=== PATIENT | female | born 1950 | race Caucasian/White ===

== ENCOUNTER → 2017-10-26 08:04 | Day surgery (SDC) | payer MEDICARE, OTHER, SELFPAY ==
[2017-10-18 15:23] VITALS: BMI 48.9
--- NOTE | 2017-10-18 16:24 | RAD_ITS ---
STUDY: X-RAY CHEST REASON FOR EXAM: Female, 67 years old. DYSPNEA TECHNIQUE: Frontal and lateral views of the chest. COMPARISON: August 30, 2016 FINDINGS: Chronic appearing increased interstitial lung markings. There is no demonstrated pleural abnormality. Enlarged heart size. Normal mediastinum and armando. Normal visualized pulmonary arteries. There is atherosclerotic calcification of the aortic arch with tortuosity. There are diffuse degenerative changes of the visualized thoracic spine. There is degenerative osteoarthritis of the bilateral shoulders. There is no demonstrated abnormality of the visualized soft tissue structures of the upper abdomen. RAD/Chest PA and Lateral IMPRESSION: There are no acute findings. Electronically Signed: Jeffrey Hardy MD at 17:11 EST , Service support ,
[2017-10-18 17:40] LABS: Absolute Lymphocyte Count 2.22 X10^3/ul (0.83-4.51); Absolute Neutrophil Count 6.2 X10^3/uL (2.0-7.7); Basophil% 1.1 % (0-1); Eosinophil# 0.08 X10^3/uL; Eosinophils% 0.9 % (0-5); Hemoglobin 12.5 g/dl (12.0-15.0); Lymphocyte # 2.22 X10^3/ul (4.0); Mean Corp Hgb Conc 32.1 g/gl (32-36); Mean Corpuscular Hgb 32.1 pg (27.0-32.0); Mean Platelet Vol. 10.4 fl (6.2-12.0); Monocyte# 0.62 X10^3/uL; Monocyte% 6.7 % (0-10); Neutrophil # 6.22 X10^3/uL (2.7-7.7); Neutrophil % 67.1 % (47-70); Platelet Count 241 K/mm3 (150-450); RBC Distribution Width CV 13.8 % (11.6-14.6); RBC Distribution Width SD 49.3 fl (35.1-43.9); White Blood Count 9.3 K/mm3 (4.4-11.0)
[2017-10-18 17:43] LABS: POSITIVE COUNT NO; POSITIVE DIFFERENTIAL NO; POSITIVE MORPHOLOGY NO
[2017-10-18 17:53] LABS: Prothrombin Time (Protime)PT. 12.4 SECONDS (11.7-14.9)
[2017-10-18 18:01] LABS: Anion Gap 8 (5-15); BUN 28 mg/dL (7-18); BUN/Creat Ratio 25.9 RATIO (10-20); Calcium,Total 9.3 mg/dL (8.5-10.1); Chloride 105 mmol/L (98-107); Creatinine, Serum 1.08 mg/dL (0.55-1.02); EST Glomerular Filtration Rate 54 mL/min (>60); Est Glom Filt Rate - Afr Amer 65 mL/min (>60); Glucose 124 mg/dL (70-110); Sodium Level 142 mmol/L (136-145)
[2017-10-25 07:36] VITALS: BMI 48.9
[2017-10-26 12:01] LABS: Base Excess 1 mmol/L (-2 to +2); Bicarbonate 26.7 mmol/L (22-26); Blood Gas Specimen Type ART; PO2 81 mmHG (75-100); SO2 96 % (95-99); Total Carbon Dioxide 28 mmol/L; pCO2 45.8 mmHg (35-45); pH 7.37 (7.35-7.45)
[2017-10-26 12:01] LABS: Blood Gas Specimen Type VEN; VBG BASE EXCESS 6 mmol/L (-1.0-3.5); VBG Bicarbonate 29 mmol/L (22-26); VBG Oxygen Content 31 mmol/L (23-33); VBG PO2 44 mmHg (25-40); VBG SO2 83 % (50-70); VBG pCO2 40.5 mmHg (41-51); VBG pH 7.47 (7.32-7.42)
[2017-10-26 12:01] LABS: Blood Gas Specimen Type VEN; VBG BASE EXCESS 5 mmol/L (-1.0-3.5); VBG Bicarbonate 30 mmol/L (22-26); VBG Oxygen Content 31 mmol/L (23-33); VBG PO2 40 mmHg (25-40); VBG SO2 77 % (50-70); VBG pCO2 42.6 mmHg (41-51); VBG pH 7.45 (7.32-7.42)
[2017-10-26 12:01] LABS: Blood Gas Specimen Type VEN; VBG BASE EXCESS 3 mmol/L (-1.0-3.5); VBG Bicarbonate 28 mmol/L (22-26); VBG Oxygen Content 29 mmol/L (23-33); VBG PO2 41 mmHg (25-40); VBG SO2 78 % (50-70); VBG pCO2 41.1 mmHg (41-51); VBG pH 7.44 (7.32-7.42)
[2017-10-26 12:01] LABS: Blood Gas Specimen Type VEN; VBG BASE EXCESS 4 mmol/L (-1.0-3.5); VBG Bicarbonate 28 mmol/L (22-26); VBG Oxygen Content 30 mmol/L (23-33); VBG PO2 41 mmHg (25-40); VBG SO2 79 % (50-70); VBG pCO2 41.5 mmHg (41-51); VBG pH 7.44 (7.32-7.42)
--- NOTE | 2017-10-26 12:01 | CL.D_ITS ---
Patient Name: GRACIELA KIRK Study Date: 10/26/2017 Performing: Taz Agee MD Ht: 57.08 inches 145 cm : 1950 Wt: 227.08 lbs 103 kg Age: 67 Gender: female BSA: 1.9 PROCEDURE(S) PERFORMED WP15-JHG/LHC/COR/LV DC11-AO ROOT ANGIO WITH HEART CATH CLINICAL PROFILE AND INDICATIONS INDICATIONS: Pulmonary Hypertension, Shortness of Breath, Valvular heart disease, Aortic valve st enosis Stress/Imaging Stress/Image Study Performed: No Angina Classification Anginal Classification w/in 2 Weeks: No symptoms CAD Presentations: Other: Dyspnea on exertion Comorbidities/Risk Factors: Hypertension Dyslipidemia Diabetes Mellitus: Diabetes Therapy: Diet CONCLUSIONS Non obstructive coronary arteries Normal LV size, wall motion,and systolic function Cardiac output - Preserved The patient has pulmonary hypertension which is moderate. Severe aortic stenosis with estimated DANA=0.94 cm2; peak to peak gradient of 30 mm Hg. RECOMMENDATIONS Pt has symptomatic severe aortic stenosis by DANA=0.94cm2 and moderate pulmonary HTN. Recommend eval a t [facility] for TAVR. DESCRIPTION OF PROCEDURE The patient arrived to the procedure lab. The risks and benefits of the procedure as well as a full d escription of our services here and current unavailability of surgical backup were fully explained to the patient and/or their significant other prior to the catheterization. The Timeout was completed, verifying the correct patient and procedure. The patient's procedural site was prepped and draped in the usual fashion. Local anesthetic was given subcutaneously to right groin region with Lidocaine 2%. Using a modified Seldinger technique, arterial access was obtained via the right femoral artery, a 4 Fr sheath was inserted Venous access was obtained via the right femoral vein, a 7Fr sheath was insert ed. A 7Fr thermal dilution catheter was inserted and right heart pressures were recorded, it was then advanced to PA position for cardiac outputs. Thermal dilution cardiac outputs were then recorded. O2 saturations were then obtained. Left Ventriculography was performed in RASHID projection using a 4 Fr. Pigtail catheter. LV to AO pullback pressures were then recorded. Simultaneous pressures were then re corded. The Thermal dilution catheter was then removed. Left Coronary Artery selective angiography wa s performed in multiple views using a 4 Fr. JL5 catheter. Right Coronary Artery selective angiography was then performed in multiple views using a 4 Fr. 3DRC catheter.The arterial sheath was pulled and manual compression applied until hemostasis is achieved.. The venous sheath was then pulled and manua l compression applied until hemostasis achieved CORONARY ANGIOGRAPHY DOMINANCE: Left Dominant LEFT HEART ASSESSMENT Left Ventricular Ejection Fraction: by LV Gram 65-75 % Normal LV wall motion Normal Left Ventricular systolic function Elevated Left Ventricular End Diastolic Pressure RIGHT HEART ASSESSMENT Thermal CO: 4.77 Thermal CI: 2.51 Stephania CO: 8.26 Stephania CI: 4.35 PW: 15 PA: 39/11 24 RV: 48/0 9 RA: 07/23 3 PVR: 151 SVR: 1560 Aortic Valve Area: 0.94 Aortic Valve Index: 0.49 Aortic Valve Mean Gradient: 25.3 Pulmonary Hypertension Right Heart pressures - elevated LEFT MAIN: Angiographically normal LEFT ANTERIOR DECENDING ARTERY: Mild luminal irregularities less than 30% CIRCUMFLEX ARTERY: Mild luminal irregularities less than 30% RIGHT CORONARY ARTERY: Mild luminal irregularities less than 30% VALVE FINDINGS: Aortic Valve Calcification - mild Aortic Valve Stenosis - severe No Aortic Valve insufficiency AORTIC ROOT: Angiographically normal COMPLICATIONS No Complications PROCEDURE MEDICATIONS Oxygen: 2 L/min via nasal cannula Benadryl 50 mg IV @ 10/26/2017 10:58:17 Pepcid 20 mg IV 10/26/2017 10:58:35 Solu-cortef 100 mg IV 10/26/2017 10:58:25 SUMMARY OF HEMODYNAMIC DATA Time AIR REST ECG 08:47:10 RA 07/23 (3) SV 11:26:03 RV 48/0, 9 11:26:13 PW (15) PV 11:27:18 PA 39/11 (24) PA 11:27:28 LV 175/-11, 13 11:36:04 LV 187/-14, 17 11:36:11 LV 186/-15, 19 11:36:36 PW 20/30 (17) 11:36:36 LV 185/-15, 20 11:39:18 LV 200/-11, 24 11:41:07 RV 51/1, 13 11:41:07 LVp 192/-14, 19 11:41:29 AOp 163/57 (100) 11:41:34 AO 127/74 (96) SA 11:44:09 Valve Area (c P-P/ms Time AIR REST Aortic 0.94 25.3 mn/322 ms 29.0 pk/322 ms 11:41:29 Type SV CO (l/m) CI (l/m/ HR Time AIR REST Thermal 78.20 4.77 2.51 61 08:47:10 Stephania 135.40 8.26 4.35 61 08:47:10 Label % O2 Pres/Loc Time AIR REST PA 78 PA 11:48:54 AO 96 PV 11:50:55 Signed By Taz Agee MD On 10/26/2017 12:00:38 Taz Agee MD
== END ==
PROVIDERS: Family Provider Family Medicine; PCP Family Medicine; Visit Provider Internal Medicine Cardiovascular Disease
DX: I35.0 Nonrheumatic aortic (valve) stenosis (principal); I27.21 Secondary pulmonary arterial hypertension; E78.5 Hyperlipidemia, unspecified; G47.30 Sleep apnea, unspecified; E66.01 Morbid (severe) obesity due to excess calories; Z68.42 Body mass index [BMI] 45.0-49.9, adult; Z82.49 Family history of ischemic heart disease and other diseases of the circulatory system; M79.1 Myalgia; E03.9 Hypothyroidism, unspecified; M06.9 Rheumatoid arthritis, unspecified; E11.9 Type 2 diabetes mellitus without complications; Z79.01 Long term (current)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; Z79.82 Long term (current) use of aspirin; Z79.899 Other long term (current) drug therapy; Z87.891 Personal history of nicotine dependence
CPT/HCPCS: 36415; 71046; 80048; 82803; 85025; 85610; 93460; 93567; J7040; C1751; C1769; C1894; J3490; Q9967

== ENCOUNTER → 2017-11-18 13:00 | Outpatient (CLI) | payer MEDICARE, OTHER, SELFPAY ==
[2017-11-18 14:14] LABS: Absolute Lymphocyte Count 1.84 X10^3/ul (0.83-4.51); Absolute Neutrophil Count 2.7 X10^3/uL (2.0-7.7); Basophil# 0.04 X10^3/uL; Basophil% 0.8 % (0-1); Eosinophil# 0.07 X10^3/uL; Eosinophils% 1.4 % (0-5); Hematocrit 37.4 % (37-47); Hemoglobin 11.6 g/dl (12.0-15.0); Lymphocyte # 1.84 X10^3/ul (4.0); Lymphocyte % 35.9 % (19-41); Mean Corpuscular Hgb 30.8 pg (27.0-32.0); Mean Corpuscular Volume 99.2 fL (81-99); Mean Platelet Vol. 9.9 fl (6.2-12.0); Monocyte# 0.46 X10^3/uL; Neutrophil # 2.71 X10^3/uL (2.7-7.7); Neutrophil % 52.9 % (47-70); Platelet Count 210 K/mm3 (150-450); RBC Distribution Width CV 13.6 % (11.6-14.6); RBC Distribution Width SD 48.9 fl (35.1-43.9); Red Blood Count 3.77 M/mm3 (4.2-5.4); White Blood Count 5.1 K/mm3 (4.4-11.0)
[2017-11-18 14:16] LABS: POSITIVE COUNT NO; POSITIVE DIFFERENTIAL NO; POSITIVE MORPHOLOGY NO
[2017-11-18 14:25] LABS: Erythrocyte Sedimentation Rate 4 mm/hr (0-30)
[2017-11-18 14:49] LABS: AST(SGOT) 19 U/L (15-37); Alanine Aminotransfer ALT/SGPT 21 U/L (13-56); Albumin, Serum 3.8 g/dL (3.2-5.0); BUN 21 mg/dL (7-18); CRP < 2.90 mg/L (0.0-3.0); Creatinine, Serum 1.16 mg/dL (0.55-1.02); EST Glomerular Filtration Rate 50 mL/min (>60); Est Glom Filt Rate - Afr Amer 60 mL/min (>60)
== END ==
PROVIDERS: Family Provider Family Medicine; PCP Family Medicine
DX: M06.9 Rheumatoid arthritis, unspecified (principal)
CPT/HCPCS: 36415; 82040; 82565; 84450; 84460; 84520; 85025; 85652; 86140

== ENCOUNTER → 2017-12-12 11:50 | Outpatient (CLI) | payer MEDICARE, OTHER, SELFPAY | PROVIDERS: Family Provider Family Medicine; PCP Family Medicine; Visit Provider Internal Medicine Cardiovascular Disease | DX: Z79.01 Long term (current)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 (principal); I48.91 Unspecified atrial fibrillation; I27.21 Secondary pulmonary arterial hypertension; I35.0 Nonrheumatic aortic (valve) stenosis; I97.89 Other postprocedural complications and disorders of the circulatory system, not elsewhere classified; E66.9 Obesity, unspecified; R06.00 Dyspnea, unspecified; R06.81 Apnea, not elsewhere classified; Z95.2 Presence of prosthetic heart valve | CPT/HCPCS: 36415; 85610 ==

== ENCOUNTER → 2017-12-13 12:00 | Outpatient (CLI) | payer MEDICARE, OTHER, SELFPAY ==
[2017-12-13 13:15] LABS: BNP,B-Type NATRIURETIC PEPTIDE 450.2 pg/mL (0-100)
== END ==
PROVIDERS: Family Provider Family Medicine; PCP Family Medicine; Visit Provider Nurse Practitioner Family
DX: R06.00 Dyspnea, unspecified (principal)
CPT/HCPCS: 36415; 83880

== ENCOUNTER 2017-12-23 14:31 | Emergency (ER) | payer MEDICARE, OTHER, SELFPAY ==
[2017-12-23 14:33] VITALS: BP 134/59; PULSE 51; RESP 16; TEMP 36.4; O2SAT 96; BMI 47.5
[2017-12-23 14:55] VITALS: BP 161/70; PULSE 40; RESP 16; O2SAT 97
--- NOTE | 2017-12-23 15:05 | EKG12_ITS ---
Test Reason : SOB Blood Pressure : / mmHG Vent. Rate : 052 BPM Atrial Rate : 052 BPM P-R Int : 214 ms QRS Dur : 094 ms QT Int : 492 ms P-R-T Axes : 028 015 089 degrees QTc Int : 457 ms Sinus bradycardia with 1st degree A-V block Septal infarct , age undetermined Abnormal ECG Confirmed by PETRA JORDAN, PRESTON ([id number]), offline editor DIANE NAVARRETE ([id number]) on 12/27/2017 8:26:30 AM Referred By: Taz Agee Confirmed By:PRESTON LAMBERT MD
[2017-12-23 15:21] LABS: Absolute Lymphocyte Count 2.41 X10^3/ul (0.83-4.51); Absolute Neutrophil Count 6.5 X10^3/uL (2.0-7.7); Basophil# 0.07 X10^3/uL; Basophil% 0.7 % (0-1); Eosinophil# 0.16 X10^3/uL; Eosinophils% 1.6 % (0-5); Hematocrit 35.8 % (37-47); Lymphocyte # 2.41 X10^3/ul (4.0); Lymphocyte % 24.1 % (19-41); Mean Corp Hgb Conc 30.7 g/gl (32-36); Mean Corpuscular Hgb 30.1 pg (27.0-32.0); Mean Corpuscular Volume 98.1 fL (81-99); Mean Platelet Vol. 9.8 fl (6.2-12.0); Monocyte# 0.83 X10^3/uL; Monocyte% 8.3 % (0-10); Neutrophil % 65.1 % (47-70); Platelet Count 285 K/mm3 (150-450); RBC Distribution Width SD 48.3 fl (35.1-43.9); Red Blood Count 3.65 M/mm3 (4.2-5.4)
[2017-12-23 15:24] VITALS: BP 165/54; BP 166/69; BP 174/58; PULSE 52; PULSE 55; PULSE 59
[2017-12-23 15:26] LABS: International Normalized Ratio 1.4; Prothrombin Time (Protime)PT. 16.9 SECONDS (11.7-14.9)
[2017-12-23 15:32] LABS: Anion Gap 11 (5-15); BUN 26 mg/dL (7-18); Calcium,Total 8.9 mg/dL (8.5-10.1); Chloride 103 mmol/L (98-107); Creatinine, Serum 1.63 mg/dL (0.55-1.02); EST Glomerular Filtration Rate 34 mL/min (>60); Est Glom Filt Rate - Afr Amer 41 mL/min (>60); Estimated Creatinine Clearance 53.33 ml/min; Glucose 133 mg/dL (74-106); Potassium 3.9 mmol/L (3.5-5.1); Sodium Level 142 mmol/L (136-145)
[2017-12-23 15:50] LABS: POSITIVE COUNT NO; POSITIVE DIFFERENTIAL NO; POSITIVE MORPHOLOGY NO
--- NOTE | 2017-12-23 15:55 | ED.DCSUM_ITS ---
- ER Visit Summary Date of Service: 12/23/17 Chief Complaint: Dizziness History of Present Illness: The patient is a 67 F who presents with dizziness. When asked to defined dizziness patient states like I am going to pass out . She states when she stands up she feels dizzy. She denies any double vision, blurred vision or loss of vision. She denies any spinning of herself or the room. She denies any difficulty breathing, shortness of breath or pleuritic chest pain. She reports nausea when she feels lightheaded. When asked if she appears pale she states she has been told she does. She denies black or maroon stool. She is on Coumadin. She is status post aortic valve replacement, bovine. She denies any leg pain, swelling or discoloration. She denies fever, chills or night sweats. She denies weight gain or weight loss. She denies any auditory symptoms. She complains of of chest discomfor over the medial sternal incision site. She denies shortness of breath. She presently denies nausea. She denies any abdominal pain. She denies any food intolerance. She denies any back pain. She denies dysuria, frequency, urgency or hematuria. She denies bruising easily or problems with bleeding. Please read written note for complete detail Physical Examination: Blood pressure is 161/70, temperature 97.6, heart rate 40 , respiratory rate 16 and pulse ox on room air 97%, which is normal. She is well-nourished well-developed and obese with a BMI of 47.5. Head is atraumatic normocephalic. Pupils are equal round reactive. Extraocular muscles are intact. TMs are pearly white with landmarks noted. Nares patent with no drainage. Posterior pharynx without erythema or exudate. Uvula is midline. There is no dysphonia or dysphasia. Trachea is midline. There is no stridor with auscultation of the neck. There is no nystagmus. Heart is regular without murmur, gallop or rub. Lungs are clear to auscultation with good movement of air bilaterally. Abdomen is soft nontender. Bowel sounds are present normal. Negative Louis sign. Scar noted for hysterectomy. There is no asymmetry, swelling, discoloration, leg vein distention, palpable cords or tenderness along the distribution of the deep venous system. Neuro exam is nonfocal. She does appear pale. Test Results: EKG was obtained per nurse protocol and reveals a sinus rhythm rate of 52 with first-degree AV block and decreased anterior force. Fordyce- Hallpike maneuver was performed and she did not have any symptoms until she honorio from supine to upright position. CBC is marked for an H&H 11.0 and 35.8. H&H on November 18, 2017 was 11.6 and 37.4. Electronic panel is remarkable for a glucose of 133. BUN and creatinine are 26 and 1.63 with a GFR of 34. BUN and creatinine on November 18, 2017 was 21 and 1.16. INR is subtherapeutic at 1.4. Emergency Department Course and Treatment: Since patient has orthostatic symptoms orthostatic vital signs were obtained. Since she is on Coumadin and a PT/INR was obtained. Since she does appear pale and friends have commented she appears pale the CBC was obtained and a BMP was obtained to evaluate the BUN to creatinine ratio. Treatment Plan: Patient was instructed to hold her p.m. dose of metoprolol. She is presently taking half of a 25 mg tablet twice daily because of low heart rate. Since she had documented heart rate between 4555 and does not compensate when she stands or with activity recommend decreasing the dose. She also was informed that her INR is subtherapeutic. She is presently taking 5 mg on Tuesday and and 2.5 mg on Tuesday, , Tuesday, Tuesday and Tuesday. Disposition: Discharged to home Impression: 1. Orthostatic symptoms secondary to autonomic dysfunction 2. Sinus bradycardia documented on monitor EKG 3. Subtherapeutic INR 4. Acute renal insufficiency 5. Chronic anemia 6. Hyperglycemia type II diabetic This note was generated with [employer] software. It may contain incorrect words, spelling, and punctuation that were not noted in review of the chart prior to signing ED Disposition - Plan for ED Patient: Disposition: Home or Assisted Living Chief Complaint: Shortness of Breath Instructions: ED Bradycardia Referrals: Bird Garza MD [Primary Care Provider] - Taz Agee MD [STAFF PHYSICIAN] - 5-7 Days Additional Instructions: Take a 2.5 mg dose of Coumadin this evening. Take 2.5 mg of Coumadin on odd days and 5 mg tablet on even days. You will need your INR reassessed in 5-[address] Agee. Because your heart rate is slow recommend only taking half of a 25 mg metoprolol tablet in the morning only.
[2017-12-23 16:42] VITALS: BP 162/65; PULSE 71; RESP 22; O2SAT 97
--- NOTE | 2017-12-23 16:42 | ED.RN ---
THIS NURSE REVIEWED D/C INSTRUCTIONS WITH PT. PT VERBALIZED UNDERSTANDING OF INSTRUCTIONS. IV D/C. IV CATHETER INTACT. PT TOLERATED WELL. PT DENIES FURTHER NEEDS OR QUESTIONS AT THIS TIME.
== END 2017-12-23 16:43 | disposition home or self-care (01) ==
PROVIDERS: Emergency Provider Emergency Medicine; Family Provider Family Medicine; PCP Family Medicine
DX: G90.8 Other disorders of autonomic nervous system (principal); R00.1 Bradycardia, unspecified; N28.9 Disorder of kidney and ureter, unspecified; D64.9 Anemia, unspecified; E11.65 Type 2 diabetes mellitus with hyperglycemia; Z79.01 Long term (current)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; Z95.2 Presence of prosthetic heart valve; E78.00 Pure hypercholesterolemia, unspecified; I27.20 Pulmonary hypertension, unspecified; M06.9 Rheumatoid arthritis, unspecified; E66.9 Obesity, unspecified; Z68.42 Body mass index [BMI] 45.0-49.9, adult; Z79.82 Long term (current) use of aspirin; Z79.899 Other long term (current) drug therapy; Z87.891 Personal history of nicotine dependence
CPT/HCPCS: 80048; 85025; 85610; 93005; 99284; A4216

== ENCOUNTER → 2017-12-28 12:51 | Outpatient (CLI) | payer MEDICARE, OTHER, SELFPAY ==
--- NOTE | 2017-12-28 12:56 | PCM.CR.HP2 ---
CR - History & Physical - General Arrival date:: 12/28/17 Arrival time:: 12:57 Date of Admission: 12/28/17 Referring Physician: Dr. Taz Agee Primary Diagnosis: AVR 11/28/2017 - History of Present Cardiac Event Onset Date: Enter Onset Date of cardiac illnesses in Comment field below Valve Replacement/Repair:: Yes - Aortic Valve Replacement and small aortic root enlargement Pacemaker/ICD: Yes Type of Symptoms:: Heart murmur for ever, went to PCP and then to community development aide and over the past 3-4 years have gone downhill Interventions with present event:: heart cath, stress echo Were there any complications?: Post operative atrial fibrillation - Medications Home Medications: Ambulatory Orders Medication Instructions Recorded Aspirin E.C. [Ecotrin] 162 mg PO DAILY@0800 09/21/16 Hydroxychloroquine [Plaquenil] 400 mg PO DAILY 09/21/16 Levothyroxine Sodium 50 mcg PO DAILY 09/21/16 Clonazepam [Klonopin] 1 mg PO QHS 07/18/17 Docusate Sodium [Colace] 100 mg PO DAILY #20 cap 07/18/17 Sertraline HCl [Zoloft] 50 mg PO DAILY 07/18/17 atorvastatin 10 mg tablet 10 mg PO QHS tab 12/12/17 calcitriol 0.25 mcg capsule 0.25 mcg PO QDAY 12/12/17 magnesium oxide 400 mg tablet 400 mg PO BID tab 12/13/17 furosemide 20 mg tablet 20 mg PO BID #60 tab 12/20/17 diltiazem 120 mg tablet 120 mg PO QDAY #90 tab 12/23/17 lisinopril 10 mg tablet 5 mg PO DAILY tab 12/23/17 metoprolol tartrate 25 mg tablet 25 mg PO .COMPLEX #30 tab 12/26/17 warfarin 2.5 mg tablet 2.5 mg PO .COMPLEX 12/26/17 warfarin 5 mg tablet 5 mg PO .COMPLEX 12/26/17 - Allergies Allergies/Adverse Reactions: Allergies amiodarone Allergy (Unknown, Verified 12/23/17 14:33) Unknown ciprofloxacin [From Cipro] Allergy (Verified 12/23/17 14:33) Unknown ciprofloxacin HCl [From Cipro] Allergy (Verified 12/23/17 14:33) Unknown insulin glargine, human recombin. a [From Lantus] Allergy (Verified 12/23/17 14:33) Unknown iodine Allergy (Verified 12/23/17 14:33) Hives prednisone Adverse Reaction (Severe, Verified 12/23/17 14:33) Visual changes, glaucoma benjamin Adverse Reaction (Severe, Uncoded 12/23/17 14:33) Neck pain & tingling - Sleep Disorder Evaluation Hx of Sleep Apnea: Yes Do you snore loudly (louder than talking or can be heard through closed doors)?: Yes - Central Sleep apnea and obstructive sleep apnea; BiPap device Do you often feel tired/ fatigued/ sleepy during daytime?: Yes Has anyone observed you stop breathing during sleep?: Yes History of Hypertension (for STOP score): Yes STOP Results: Positive Advanced Directives - Advanced Directives Power of Gifts Officer: No Living Will: No Advance Directives on File: No DNR Order?:: No Past Medical History - Problems and Co-Morbidities Problems & Co-Morbidities: Dyslipidemia, Diabetes - Diet controlled diabetes, Obesity, Hypertension, Depression - diagnosed, Anxiety - diagnosed, - - Past Medical Illness Past Medical Illness: Diabetes - Type II DM diet controlled Other Medical Illnesses:: Central Apnea, obstructive sleep apnea, Palpitations, history of Sjogren's disease, rheumatoid arthritis, hypothyroidism, secondary pulmonary arterial hypertension. - Past Cardiac Illness Past Cardiac Illness: Valve Disorders - severe aortic valve stenosis, Arrhythmias - palpitations, status post operative atrial fibrillation, Heart Murmur, Other - non-rheumatic aortic stenosis. - Past Surgical History Surgical History: - - S/P AVR, bilateral carpal tunnel syndrome, partial hysterectomy, right knee joint replacement, tonsillectomy, cholecystectomy. - Family History Summary Family History: Heart Disease: Sibling, Paternal, Cancer: Maternal, Sibling, Hypertension: Maternal Additional Family History: F/H CAD, CABG, hypertension, cancer. Review of Systems - Review of Systems Hints: Right click = Denies ([place]). Left click = Reports ([place]) Review of Present Symptoms: Reports: Shortness of Breath at Rest, Shortness of Breath with Exertion, Operative Discomfort, Wound Healing, Fatigue, Heart Arrhythmia/Irregularities - post operative atrial fibrillatiopn, Appetite - Normal - wasnt for a long time, but regaining appetite, Sleep - Normal. Denies: Dizziness/Lightheadedness, Appetite - Special Diet Risk Factor Assessment - Chief Complaint Chief Complaint: Patient presents to cardiac rehab today follwoing recent AVR by Dr. Adams at [facility] after refferal by Dr. Agee. - Pulse Pulse Rate: 58 - SpO2 96% Pulse Rhythm: Regular - Hypertension Blood Pressure Sitting - Left Arm: 120/48 - Stress Stress: Recent - surgery - Diabetes Diabetic History: Type II - Diet controlled Nutrition Referral for Diabetes: Yes - Obesity Height: 4 ft 9 in Weight:: 212 lb Weight in Pounds: 212.0 lbs Body Mass Index (BMI): 45.8 Nutritional Referral for Obesity: Yes - Physical Inactivity Physical Inactivity: None - Risk Stratification Risk Guidelines: Lowest Risk: Risk Factor for Smoking, Risk Factor for Dyslipidemia, Risk Factor for Diabetes - hBA1c% <5.9 last year, Risk Factor for Hypertension, Risk Factor for Depression, Moderate Risk: Risk Factor for Sedentary Lifestyle, Highest Risk: Risk Factor for Obesity - For Smoking Smoking Risk Guidelines: Smoking Low Risk: None or quit greater than 6 months ago. Smoking Moderate Risk: Smoker or quit 6 months or less ago. Smoking High Risk: Smoker - For Dyslipidemia Dyslipidemia Risk Guidelines: Low Risk: Moderate Risk: High Risk: 15-25% fat 25.1-29% fat >/= 30% fat. <7% sat fat 7-9% sat fat >9% sat fat. <150 mg chol 150-299 mg chol >/= 300 mg chol. LDL <100 LDL 100-129 LDL >/= 130. Chol/HDL ratio <5.0 Chol/HDL ratio 5.0-6.0 Chol/HDL ratio >6.0. Triglycerides <100 Triglycerides 100-149 Triglycerides >/= 150 - For Diabetes Mellitus Diabetes Risk Guidelines: Diabetes Low Risk: HgA1c <6.5% and/or FBG <120. Diabetes Moderate Risk: HgA1c 6.6-7.9% and/or FBG 120-180. Diabetes High Risk: HgA1c >/= 8% and/or FBG >180 - For Obesity/Overweight Obesity/Overweight Risk Guidelines: Obesity Low Risk: BMI <25.0. Obesity Moderate Risk: BMI 25-29.9. Obesity High Risk: BMI >/= 30.0 - For Hypertension Hypertension Risk Guidelines: Hypertension Low Risk: Systolic <120 and Diastolic <80. Hypertension Moderate Risk: Systolic 120-139 and Diastolic 80-89. Hypertension High Risk: Systolic >/= 140 and Diastolic >/= 90 - For Sedentary Lifestyle Sedentary Lifestyle Risk Guidelines: Sedentary Lifestyle Low Risk: >/= 1,500 kcal/week. Sedentary Lifestyle Moderate Risk: 700-1,499 kcal/week. Sedentary Lifestyle High Risk: < 700 kcal/week - For Depression Depression Risk Guidelines: Depression Low Risk: Not clinically depressed. Depression Moderate Risk: Mildly depressed. Depression High Risk: Clinically depressed - Family History Family History: Family History (Last Updated 12/13/17 @ 10:50 by Juan Carlos Wolff) Brother CAD (coronary artery disease) Father CAD (coronary artery disease) Mother Hypertension Cancer Sister Cancer Social History - Smoking History Smoking Status: Former smoker Hx Tobacco Use: No Hx Smoking Exposure: No - Alcohol Use Alcohol Usage: Yes - special occasions/holidays (wine) - Substance Abuse Hx Substance Use: No - Occupation Occupation (List type of work in comments):: Retired - Hobbies, Recreation, Social Activities Hobbies: Other - crafts, make greeting cards Recreational Activities: I am able to engage in a few activities Marital Status - Status Marital Status: - 47 years - Current Living Arrangements Living Environment:: Spouse - Children How many children do you have?: 1 Do any of your children live nearby?: Yes - Safety Do you feel safe in your surroundings?: Yes - Assistance Do you need any assistance at home?: home care nurse that is coming in right now
--- NOTE | 2017-12-28 13:07 | CR.HP_ITS ---
CR - History & Physical - General Arrival date:: 12/28/17 Arrival time:: 12:57 Date of Admission: 12/28/17 Referring Physician: Dr. 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 [Ecotrin] 162 mg PO DAILY@0800 09/21/16 Hydroxychloroquine [Plaquenil] 400 mg PO DAILY 09/21/16 Levothyroxine Sodium 50 mcg PO DAILY 09/21/16 Clonazepam [Klonopin] 1 mg PO QHS 07/18/17 Docusate Sodium [Colace] 100 mg PO DAILY #20 cap 07/18/17 Sertraline HCl [Zoloft] 50 mg PO DAILY 07/18/17 atorvastatin 10 mg tablet 10 mg PO QHS tab 12/12/17 calcitriol 0.25 mcg capsule 0.25 mcg PO QDAY 12/12/17 magnesium oxide 400 mg tablet 400 mg PO BID tab 12/13/17 furosemide 20 mg tablet 20 mg PO BID #60 tab 12/20/17 diltiazem 120 mg tablet 120 mg PO QDAY #90 tab 12/23/17 lisinopril 10 mg tablet 5 mg PO DAILY tab 12/23/17 metoprolol tartrate 25 mg tablet 25 mg PO .COMPLEX #30 tab 12/26/17 warfarin 2.5 mg tablet 2.5 mg PO .COMPLEX 12/26/17 warfarin 5 mg tablet 5 mg PO .COMPLEX 12/26/17 - Allergies Allergies/Adverse Reactions: Allergies amiodarone Allergy (Unknown, Verified 12/23/17 14:33) Unknown ciprofloxacin [From Cipro] Allergy (Verified 12/23/17 14:33) Unknown ciprofloxacin HCl [From Cipro] Allergy (Verified 12/23/17 14:33) Unknown insulin glargine, human recombin. a [From Lantus] Allergy (Verified 12/23/17 14: 33) Unknown iodine Allergy (Verified 12/23/17 14:33) Hives prednisone Adverse Reaction (Severe, Verified 12/23/17 14:33) Visual changes, glaucoma benjamin Adverse Reaction (Severe, Uncoded 12/23/17 14:33) Neck pain & tingling - Sleep Disorder Evaluation Hx of Sleep Apnea: Yes Do you snore loudly (louder than talking or can be heard through closed doors)? 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 - Past Cardiac Illness Past Cardiac Illness: Valve Disorders - severe aortic valve stenosis, Arrhythmias - palpitations, status post operative atrial fibrillation, Heart Murmur, Other - non-rheumatic aortic stenosis. - Past Surgical History Surgical History: - - S/P AVR, bilateral carpal tunnel syndrome, partial hysterectomy, right knee joint replacement, tonsillectomy, cholecystectomy. - Family History Summary Family History: Heart Disease: Sibling, Paternal, Cancer: Maternal, Sibling, Hypertension: Maternal Additional Family History: F/H CAD, CABG, hypertension, cancer. Review of Systems - Review of Systems Hints: Right click = Denies (Slash). Left click = Reports ([place]) Review of Present Symptoms: Reports: Shortness of Breath at Rest, Shortness of Breath with Exertion, Operative Discomfort, Wound Healing, Fatigue, Heart Arrhythmia/Irregularities - post operative atrial fibrillatiopn, Appetite - Normal - wasnt for a long time, but regaining appetite, Sleep - Normal. Denies : Dizziness/Lightheadedness, Appetite - Special Diet Risk Factor Assessment - Chief Complaint Chief Complaint: Patient presents to cardiac rehab today follwoing recent AVR by Dr. Adams at [facility] after refferal by Dr. Agee. - Pulse Pulse Rate: 58 - SpO2 96% Pulse Rhythm: Regular - Hypertension Blood Pressure Sitting - Left Arm: 120/48 - Stress Stress: Recent - surgery - Diabetes Diabetic History: Type II - Diet controlled Nutrition Referral for Diabetes: Yes - Obesity Height: 4 ft 9 in Weight:: 212 lb Weight in Pounds: 212.0 lbs Body Mass Index (BMI): 45.8 Nutritional Referral for Obesity: Yes - Physical Inactivity Physical Inactivity: None - Risk Stratification Risk Guidelines: Lowest Risk: Risk Factor for Smoking, Risk Factor for Dyslipidemia, Risk Factor for Diabetes - hBA1c% <5.9 last year, Risk Factor for Hypertension, Risk Factor for Depression, Moderate Risk: Risk Factor for Sedentary Lifestyle, Highest Risk: Risk Factor for Obesity - For Smoking Smoking Risk Guidelines: Smoking Low Risk: None or quit greater than 6 months ago. Smoking Moderate Risk: Smoker or quit 6 months or less ago. Smoking High Risk: Smoker - For Dyslipidemia Dyslipidemia Risk Guidelines: Low Risk: Moderate Risk: High Risk: 15-25% fat 25.1-29% fat >/= 30% fat. <7% sat fat 7-9% sat fat >9% sat fat. <150 mg chol 150-299 mg chol >/= 300 mg chol. LDL <100 LDL 100-129 LDL >/= 130. Chol/HDL ratio <5.0 Chol/HDL ratio 5.0-6.0 Chol/HDL ratio >6.0. Triglycerides <100 Triglycerides 100-149 Triglycerides >/= 150 - For Diabetes Mellitus Diabetes Risk Guidelines: Diabetes Low Risk: HgA1c <6.5% and/or FBG <120. Diabetes Moderate Risk: HgA1c 6.6-7.9% and/or FBG 120-180. Diabetes High Risk: HgA1c >/= 8% and/or FBG >180 - For Obesity/Overweight Obesity/Overweight Risk Guidelines: Obesity Low Risk: BMI <25.0. Obesity Moderate Risk: BMI 25-29.9. Obesity High Risk: BMI >/= 30.0 - For Hypertension Hypertension Risk Guidelines: Hypertension Low Risk: Systolic <120 and Diastolic <80. Hypertension Moderate Risk: Systolic 120-139 and Diastolic 80-89. Hypertension High Risk: Systolic >/= 140 and Diastolic >/= 90 - For Sedentary Lifestyle Sedentary Lifestyle Risk Guidelines: Sedentary Lifestyle Low Risk: >/= 1 ,500 kcal/week. Sedentary Lifestyle Moderate Risk: 700-1,499 kcal/week. Sedentary Lifestyle High Risk: < 700 kcal/week - For Depression Depression Risk Guidelines: Depression Low Risk: Not clinically depressed. Depression Moderate Risk: Mildly depressed. Depression High Risk: Clinically depressed - Family History Family History: Family History (Last Updated 12/13/17 @ 10:50 by Juan Carlos Wolff) Brother CAD (coronary artery disease) Father CAD (coronary artery disease) Mother Hypertension Cancer Sister Cancer Social History - Smoking History Smoking Status: Former smoker Hx Tobacco Use: No Hx Smoking Exposure: No - Alcohol Use Alcohol Usage: Yes - special occasions/holidays (wine) - Substance Abuse Hx Substance Use: No - Occupation Occupation (List type of work in comments):: Retired - Hobbies, Recreation, Social Activities Hobbies: Other - crafts, make greeting cards Recreational Activities: I am able to engage in a few activities Marital Status - Status Marital Status: - 47 years - Current Living Arrangements Living Environment:: Spouse - Children How many children do you have?: 1 Do any of your children live nearby?: Yes - Safety Do you feel safe in your surroundings?: Yes - Assistance Do you need any assistance at home?: home care nurse that is coming in right now
--- NOTE | 2017-12-28 13:13 | PCM.CR.ITP ---
Exercise - Initial Assessment - Visit Date of Eval: 12/28/17 - established initial ITP Session #:: 1 - Scheduled start date 01/02/2018 - Stages of Change Stages of Change:: Action - Exercise Prescription Mode:: Treadmill, Biodyne, Airdyne, NuStep Angina with exercise?: No Target Heart Rate:: 100-107 - Hypertension Do any of the following apply?: Yes Peak Exercise Blood Pressure:: 120/48 - Intervention Home Exercise/Activity Goal:: Sitting Time <3 hrs/day - Education Goals:: Warm-up, RPE GERTRUDIS Scale, S/S, Safe Exercise, Self-Monitoring - Exercise Program Goals Exercise Program Goals: Aerobic Activity >30 min Nutrition - Initial Assessment - Program Goals Nutrition Program Goals: LDL <70. Total Cholesterol <200. HDL >45. Triglycerides <150. HgbA1C <7%. BMI <25 - Visit Date of Assessment:: 12/28/17 - established initial ITP today - Stages of Change Stages of Change:: Action - Diabetes Diabetes:: Yes Insulin: No Non-Insulin Dependent?: No Do you monitor your blood sugar at home?: No - Weight Management Height: 4 ft 9 in Weight:: 212 lb - Intervention Referral to dietitian:: Yes Referral to Diabetic Clinic:: Yes Will attend diet classes:: Yes - Education Gave educational materials for:: Signs & symptoms of hypoglycemia, Signs & symptoms of hyperglycemia, Relate diabetes to coronary artery disease, Healthy eating Nutrition - 30-Day Assessment - Program Goals Nutrition Program Goals: LDL <70. Total Cholesterol <200. HDL >45. Triglycerides <150. HgbA1C <7%. BMI <25 - Diabetes Diabetes:: Yes Nutrition - 60-Day Assessment - Program Goals Nutrition Program Goals: LDL <70. Total Cholesterol <200. HDL >45. Triglycerides <150. HgbA1C <7%. BMI <25 - Diabetes Diabetes:: Yes Nutrition - 90-Day Assessment - Program Goals Nutrition Program Goals: LDL <70. Total Cholesterol <200. HDL >45. Triglycerides <150. HgbA1C <7%. BMI <25 - Diabetes Diabetes:: Yes Nutrition - Final Assessment - Program Goals Nutrition Program Goals: LDL <70. Total Cholesterol <200. HDL >45. Triglycerides <150. HgbA1C <7%. BMI <25 - Diabetes Diabetes:: Yes Tobacco - Initial Assessment - Program Goals Tobacco Program Goals: Complete smoking cessation. Attend education classes. Improve Knowledge Test score - Stage of Change Stages of Change:: Action - Learning Barriers Learning Barriers: Hearing - hearing loss., Vision - wears glasses at all times for vision correction, Ready to Learn - Family Support Do you have family support?: Yes - Tobacco Use Tobacco Use: Non-smoker Do you use smokeless tobacco?: No - Intervention Smoking Cessation Referral:: No Individual Education/Counseling:: No Education Schedule Given:: Yes - Education Gave educational material for:: Coronary artery disease, Risk factors, Sexuality, Medical compliance, Cardiac A&P, Angina signs & symptoms Psychosocial - Initial Assess - Target Goals Target Goals: Assess presence or absence of depression. Using a valid screening tool, maximizes coping skills. Positive support system - Stages of Change Stages of Change:: Action - Psychosocial Test Tool Used:: HANDS Depression Questionnaire - Intervention PS - Interventions: Yes Attend Stress Management Classes, No Referral to Mental Health, No Referral to [facility] Case Management, No Referral to Physician, No Uses Stress Management Skills - Education Gave educational materials for:: Coping techniques, Signs & symptoms of depression, Stress management, Relaxation techniques - Patient/Program Goal Preventative Medication(s):: Aspirin, Clopidogrel, Beta noemi, Statin/lipid - Assistive Devices Assistive Devices:: None Fall Risk Assessed:: Yes Patient Health Questionnaire Initial Assessment 1. Little interest or pleasure in doing things: More than half the days 2. Feeling down, depressed, or hopeless: More than half the days 3. Trouble falling or staying asleep, or sleeping too much: More than half the days 4. Feeling tired or having little energy: More than half the days 5. Poor appetite or overeating: More than half the days 6. Feeling bad about yourself -- or that you are a failure or have let yourself or your family down: Several days 7. Trouble concentrating on things, such as reading the newspaper or watching television: Several days 8. Moving or speaking so slowly that other people could have noticed. Or the opposite - being so fidgety or restless that you have been moving around a lot more than usual: Not at all 9. Thoughts that you would be better off , or of hurting yourself in some way: Not at all How difficult have these problems made it for you to do your work, take care of things at home, or get along with other people?: Somewhat difficult Total Score: 12 Knowledge Test - Check your knowledge Initial The #1 cause of in the [place] each year is:: Heart disease Which of the following is a common treatment for heart disease?: All of the above The arteries that feed the heart are called:: Coronary arteries HDL cholesterol is known as the good cholesterol.: True What disease increases your risk for heart disease?: Diabetes What food product raises blood cholesterol level the most?: Saturated fat The bad cholesterol in the blood is called:: LDL Hypertension is another word for:: High blood pressure A blood pressure reading of 148/88 is considered normal.: False Exercise will only benefit your health when your heart rate reaches a target level.: False Total Score:: 10 Self-Efficacy Initial Assessment We would like to know how confident you are in doing certain activities. Please select your confidence level for:: Select your confidence level for the following using the scale 1-10 where 1 is not at all confident and 10 is totally confident. Your score is the average of all 6 responses. Fatigue: How confident are you that you can keep the fatigue caused by your disease from interfering with the things you want to do? Select Number: 3 Physical Discomfort or Pain: How confident are you that you can keep the physical discomfort or pain of your disease from interfering with the things you want to do? Select Number: 3 Emotional Distress: How confident are you that you can keep the emotional distress caused by your disease from interfering with the things you want to do? Select Number: 4 Other Symptoms or Health Problems: How confident are you that you can keep other symptoms or health problems from interfering with the things you want to do? Select Number: 3 Different Tasks and Activities: How confident are you that you can do the different tasks and activities needed to manage your health condition so as to reduce your need to see a doctor? Select Number: 4 Medication: How confident are you that you can do things other than just taking medication to reduce how much your illness affects your everyday life? Select Number: 5 Total Score:: 3 Nutrition Survey - Nutrition Survey Instructions Scoring Instructions: Scoring is as follows: Yes = 1 points. No = 0 point. Patient score that is >/=12 is considered to be at potential nutritional risk and could benefit from a referral to a registered dietitian. - Nutrition Survey Initial Have you lost >10 lbs over the past 2 months without trying?: Yes Are you following a special diet at home for diabetes, low fat, or low salt?: Yes Are you interested in meeting with a dietitian for help understanding your diet?: Yes Do you eat less than 3 meals a day?: No Do you eat fatty meats (sanchez, sausage, ribs, etc), fried foods, desserts, large amounts of salad dressings, margarine, butter, or cheese most days?: No Do you have food allergies? [Enter types in comment field]: No Do you eat in restaurants more than 3 times a week?: No Do you season food with salt, seasoning salt, or garlic salt?: Yes - DM Type II and Morbid Obesity Cardiac Rehabilitation Goals - Cardiac Rehab Goals Cardiac Rehabilitation Goals: 1. Maintain the individual as the primary focus of care. 2. To improve the patient's quality of life. 3. Identification of cardiac risk factors and provide cardiac risk factor management. 4. Enhance the psychosocial status of the patient. 5. Reconditioning enough to allow the patient to resume customary activities. 6. Control symptoms of cardiac disease - Scale Scale for measuring improvement of personal goals: Enter appropriate number in Comments. 2 = Unchanged. 3 = Slightly Better. 4 = Moderate Improvement. 5 = Met my Goal Initial Assessment Personal Goals: 30-day Re-assessment: Improve energy level, Participate in home exercise program, Improve muscle strength and endurance, Improve diet and eating habits (eat healthier), Control risk factors (learn risk factor modification)
[2017-12-28 13:23] VITALS: BP 120/48; PULSE 58; BMI 45.8
[2017-12-28 14:09] VITALS: BP 120/48
== END ==
PROVIDERS: Family Provider Family Medicine; PCP Family Medicine; Visit Provider Internal Medicine Cardiovascular Disease
DX: Z95.2 Presence of prosthetic heart valve (principal)

== ENCOUNTER 2018-01-16 12:36 | Outpatient (RCR) | payer MEDICARE, OTHER, SELFPAY ==
[2017-12-19 12:05] LABS: International Normalized Ratio 1.3; Prothrombin Time (Protime)PT. 16.3 SECONDS (11.7-14.9)
[2018-01-02 13:03] LABS: International Normalized Ratio 1.4; Prothrombin Time (Protime)PT. 17.5 SECONDS (11.7-14.9)
[2018-01-09 13:22] LABS: International Normalized Ratio 1.7
[2018-01-16 13:41] LABS: International Normalized Ratio 1.7; Prothrombin Time (Protime)PT. 19.6 SECONDS (11.7-14.9)
== END 2018-01-16 13:00 | disposition home or self-care (01) ==
LOC: LAB 12:36
PROVIDERS: Family Provider Family Medicine; PCP Family Medicine; Visit Provider Internal Medicine Cardiovascular Disease
DX: I48.91 Unspecified atrial fibrillation (principal); I97.89 Other postprocedural complications and disorders of the circulatory system, not elsewhere classified
CPT/HCPCS: 36415; 85610

== ENCOUNTER 2018-01-16 13:00 | Outpatient (RCR) | payer MEDICARE, OTHER, SELFPAY ==
[2018-01-09 14:42] VITALS: BP 122/72; BP 92/58
--- NOTE | 2018-01-09 14:42 | CR.ITP_ITS ---
General Information - General Information Admitting Diagnosis: aortic valve replacement - Education/Goals Barriers to Learning: None Individual Counselin-Day Assessment: Abnormal Cholesterol Levels, High Blood Pressure, Overweight/Obesity, Diabetes Cardiac Rehabilitation Goals: 1. Maintain the individual as the primary focus of care. 2. To improve the patient's quality of life. 3. Identification of cardiac risk factors and provide cardiac risk factor management. 4. Enhance the psychosocial status of the patient. 5. Reconditioning enough to allow the patient to resume customary activities. 6. Control symptoms of cardiac disease Scale for measuring improvement of personal goals: Enter appropriate number in Comments. 2 = Unchanged. 3 = Slightly Better. 4 = Moderate Improvement. 5 = Met my Goal Personal Goals: 30-day Re-assessment: Improve management of stress and emotions , Improve energy level, Participate in home exercise program, Get back to work, or to resume activities faster, Improve diet and eating habits (eat healthier), Control risk factors (learn risk factor modification) Exercise - 30-day Assessment - Visit Date of Eval: 01/09/18 Session #:: 3 - Stages of Change Stages of Change:: Action - Exercise Prescription Mode:: Treadmill, NuStep Frequency (x/week): 3 Duration:: 30 METs - Progression: 0.5-1 MET as tolerated: 2.1 Target Heart Rate:: 100-107 Max HR 72 - Hypertension Resting Blood Pressure:: 92/58 Peak Exercise Blood Pressure:: 122/72 Medication Changes:: No - Intervention Home Exercise/Activity Goal:: Sitting Time <3 hrs/day - Education Goals:: Warm-up, RPE GERTRUDIS Scale, S/S, Safe Exercise, Self-Monitoring - Exercise Program Goals Exercise Program Goals: Aerobic Activity >30 min, B/P <140/90 Nutrition - Initial Assessment - Program Goals Nutrition Program Goals: LDL <70. Total Cholesterol <200. HDL >45. Triglycerides <150. HgbA1C <7%. BMI <25 - Diabetes Do you monitor your blood sugar at home?: No Nutrition - 30-Day Assessment - Program Goals Nutrition Program Goals: LDL <70. Total Cholesterol <200. HDL >45. Triglycerides <150. HgbA1C <7%. BMI <25 - Visit Date of Eval: 01/09/18 - Stages of Change Stages of Change:: Action - Lipids Has the patient seen the dietitian?: No - Diabetes Diabetes:: Yes - Intervention Referral to dietitian:: No Referral to Diabetic Clinic:: No Will attend diet classes:: Yes - Education Attended class for:: Signs & symptoms of hypoglycemia, Signs & symptoms of hyperglycemia, Relate diabetes to coronary artery disease, Healthy eating Tobacco - Initial Assessment - Program Goals Tobacco Program Goals: Complete smoking cessation. Attend education classes. Improve Knowledge Test score - Learning Barriers Learning Barriers: Hearing - hearing loss., Vision - wears glasses at all times for vision correction, Ready to Learn Tobacco - 30-Day Assessment - Program Goals Tobacco Program Goals: Complete smoking cessation. Attend education classes. Improve Knowledge Test score - Stage of Change Stages of Change:: Action - Learning Barriers Learning Barriers: Participates in education - Family Support Do you have family support?: Yes - Tobacco Use Tobacco Use: Non-smoker Do you use smokeless tobacco?: No - Intervention Smoking Cessation Referral:: No Individual Education/Counseling:: No Education Schedule Given:: Yes - Education Attended class for:: Tobacco triggers, Coronary artery disease, Risk factors, Sexuality, Medical compliance, Cardiac A&P, Angina signs & symptoms Psychosocial - Initial Assess - Target Goals Target Goals: Assess presence or absence of depression. Using a valid screening tool, maximizes coping skills. Positive support system - Psychosocial Test Tool Used:: HANDS Depression Questionnaire - Assistive Devices Fall Risk Assessed:: Yes Psychosocial - 30-Day Assess - Target Goals Target Goals: Assess presence or absence of depression. Using a valid screening tool, maximizes coping skills. Positive support system - Stages of Change Stages of Change:: Action - Psychosocial Test Tool Used:: HANDS Depression Questionnaire - Intervention PS - Interventions: Yes Attend Stress Management Classes, Yes Uses Stress Management Skills, No Referral to Mental Health, No Referral to [facility] Case Management, No Referral to Physician - Education Attended classes for:: Coping techniques, Signs & symptoms of depression, Stress management, Relaxation techniques - Assistive Devices Assistive Devices:: None Fall Risk Assessed:: Yes Psychosocial - Final Assessmen - Target Goals Target Goals: Assess presence or absence of depression. Using a valid screening tool, maximizes coping skills. Positive support system - Stages of Change Stages of Change:: Action - Psychosocial Test Tool Used:: HANDS Depression Questionnaire Patient Health Questionnaire 30-Day Re-eval Assessment 1. Little interest or pleasure in doing things: More than half the days 2. Feeling down, depressed, or hopeless: More than half the days 3. Trouble falling or staying asleep, or sleeping too much: More than half the days 4. Feeling tired or having little energy: More than half the days 5. Poor appetite or overeating: More than half the days 6. Feeling bad about yourself -- or that you are a failure or have let yourself or your family down: Several days 7. Trouble concentrating on things, such as reading the newspaper or watching television: Several days 8. Moving or speaking so slowly that other people could have noticed. Or the opposite - being so fidgety or restless that you have been moving around a lot more than usual: Not at all 9. Thoughts that you would be better off , or of hurting yourself in some way: Not at all How difficult have these problems made it for you to do your work, take care of things at home, or get along with other people?: Somewhat difficult Total Score: 12 Self-Efficacy 30-Day Re-eval Assessment We would like to know how confident you are in doing certain activities. Please select your confidence level for:: Select your confidence level for the following using the scale 1-10 where 1 is not at all confident and 10 is totally confident. Your score is the average of all 6 responses. Fatigue: How confident are you that you can keep the fatigue caused by your disease from interfering with the things you want to do? Select Number: 4 Physical Discomfort or Pain: How confident are you that you can keep the physical discomfort or pain of your disease from interfering with the things you want to do? Select Number: 4 Emotional Distress: How confident are you that you can keep the emotional distress caused by your disease from interfering with the things you want to do? Select Number: 4 Other Symptoms or Health Problems: How confident are you that you can keep other symptoms or health problems from interfering with the things you want to do? Select Number: 4 Different Tasks and Activities: How confident are you that you can do the different tasks and activities needed to manage your health condition so as to reduce your need to see a doctor? Select Number: 4 Medication: How confident are you that you can do things other than just taking medication to reduce how much your illness affects your everyday life? Select Number: 5 Total Score:: 4
== END 2018-01-16 23:59 ==
LOC: CR 13:00
PROVIDERS: Family Provider Family Medicine; PCP Family Medicine; Visit Provider Internal Medicine Cardiovascular Disease
DX: Z95.2 Presence of prosthetic heart valve (principal); E78.5 Hyperlipidemia, unspecified; E11.9 Type 2 diabetes mellitus without complications; I97.89 Other postprocedural complications and disorders of the circulatory system, not elsewhere classified; I48.91 Unspecified atrial fibrillation; Z79.01 Long term (current)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
CPT/HCPCS: 36415; 85610; 93798

== ENCOUNTER → 2018-02-06 14:03 | Outpatient (CLI) | payer MEDICARE, OTHER, SELFPAY ==
--- NOTE | 2018-02-06 14:05 | RAD_ITS ---
STUDY: X-RAY CHEST REASON FOR EXAM: Female, 67 years old. Open-heart surgery 6 days ago. Right-sided pleural effusion. TECHNIQUE: PA and lateral views of the chest. COMPARISON: October 18, 2017. FINDINGS: The lungs are well-expanded. There is a right pleural effusion with right basilar atelectasis. The lungs are otherwise clear. There is no demonstrated pleural abnormality. There is no median sternotomy wires. The heart remains normal in size. Normal mediastinum and armando. Normal visualized pulmonary arteries. Normal visualized aortic arch and descending thoracic aorta. There are diffuse degenerative changes of the visualized thoracic spine. There is degenerative osteoarthritis of the bilateral shoulders. There is no demonstrated abnormality of the visualized soft tissue structures of the upper abdomen. RAD/Chest PA and Lateral IMPRESSION: 1. Interval median sternotomy with compared to October 18, 2017. 2. Small right pleural effusion and atelectasis not previously noted. Electronically Signed: Merrill Dennis DO at 14:55 EDT Tel [phone], Service support ,
== END ==
PROVIDERS: Family Provider Family Medicine; PCP Family Medicine; Visit Provider Internal Medicine Cardiovascular Disease
DX: J90 Pleural effusion, not elsewhere classified (principal); G47.33 Obstructive sleep apnea (adult) (pediatric); E78.5 Hyperlipidemia, unspecified; M06.9 Rheumatoid arthritis, unspecified; E11.9 Type 2 diabetes mellitus without complications; E03.9 Hypothyroidism, unspecified; I97.89 Other postprocedural complications and disorders of the circulatory system, not elsewhere classified; I48.91 Unspecified atrial fibrillation; I27.21 Secondary pulmonary arterial hypertension; R00.2 Palpitations; Z95.2 Presence of prosthetic heart valve; Z79.01 Long term (current)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
CPT/HCPCS: 71046

== ENCOUNTER 2018-02-15 12:27 | Outpatient (RCR) | payer MEDICARE, OTHER, SELFPAY ==
[2018-01-25 13:49] LABS: International Normalized Ratio 1.9
[2018-02-15 13:12] LABS: International Normalized Ratio 2.7; Prothrombin Time (Protime)PT. 28.7 SECONDS (11.7-14.9)
== END 2018-02-15 13:00 | disposition home or self-care (01) ==
LOC: LAB 12:27
PROVIDERS: Family Provider Family Medicine; PCP Family Medicine; Visit Provider Internal Medicine Cardiovascular Disease
DX: I48.91 Unspecified atrial fibrillation (principal); I97.89 Other postprocedural complications and disorders of the circulatory system, not elsewhere classified
CPT/HCPCS: 36415; 85610

== ENCOUNTER 2018-02-15 13:00 | Outpatient (RCR) | payer MEDICARE, OTHER, SELFPAY ==
[2018-01-17 01:10] VITALS: BP 122/72; BP 92/58
[2018-02-01 13:21] LABS: International Normalized Ratio 2.4
--- NOTE | 2018-02-08 11:09 | PCM.CR.ITP ---
General Information - General Information Admitting Diagnosis: Aortic valve replacement - Education/Goals Barriers to Learning: None Individual Counselin-Day Assessment: Abnormal Cholesterol Levels, High Blood Pressure, Overweight/Obesity, Diabetes Cardiac Rehabilitation Goals: 1. Maintain the individual as the primary focus of care. 2. To improve the patient's quality of life. 3. Identification of cardiac risk factors and provide cardiac risk factor management. 4. Enhance the psychosocial status of the patient. 5. Reconditioning enough to allow the patient to resume customary activities. 6. Control symptoms of cardiac disease Scale for measuring improvement of personal goals: Enter appropriate number in Comments. 2 = Unchanged. 3 = Slightly Better. 4 = Moderate Improvement. 5 = Met my Goal Personal Goals: 60-day Re-assessment: Improve management of stress and emotions, Improve energy level, Improve diet and eating habits (eat healthier), Control risk factors (learn risk factor modification) Exercise - 60-Day Assessment - Visit Date of Eval: 02/08/18 Session #:: 15 - Stages of Change Stages of Change:: Contemplate - Exercise Prescription Mode:: Treadmill, Arm Ergometer Frequency (x/week): 3 - 33% MET increase Duration:: 30 METs: 2.8 Target Heart Rate:: 107-112 Max HR 86 - Hypertension Resting Blood Pressure:: 106/60 Peak Exercise Blood Pressure:: 112/70 Medication Changes:: No - Intervention Home Exercise/Activity Goal:: Sitting Time <3 hrs/day - Education Goals:: Warm-up, RPE GERTRUDIS Scale, S/S, Safe Exercise, Self-Monitoring - Exercise Program Goals Exercise Program Goals: Aerobic Activity >30 min, B/P <130/80 Nutrition - Initial Assessment - Program Goals Nutrition Program Goals: LDL <70. Total Cholesterol <200. HDL >45. Triglycerides <150. HgbA1C <7%. BMI <25 - Diabetes Do you monitor your blood sugar at home?: No Nutrition - 60-Day Assessment - Program Goals Nutrition Program Goals: LDL <70. Total Cholesterol <200. HDL >45. Triglycerides <150. HgbA1C <7%. BMI <25 - Visit Date of Eval: 02/08/18 - Stages of Change Stages of Change:: Contemplate - Lipids Has the patient seen the dietitian?: No - Diabetes Diabetes:: Yes - Weight Management Weight:: 94.801 kg - Intervention Referral to dietitian:: No Referral to Diabetic Clinic:: No Will attend diet classes:: Yes - Education Attended class for:: Signs & symptoms of hypoglycemia, Signs & symptoms of hyperglycemia, Relate diabetes to coronary artery disease, Healthy eating Tobacco - Initial Assessment - Program Goals Tobacco Program Goals: Complete smoking cessation. Attend education classes. Improve Knowledge Test score - Learning Barriers Learning Barriers: Hearing - hearing loss., Vision - wears glasses at all times for vision correction, Ready to Learn Tobacco - 60-Day Assessment - Program Goals Tobacco Program Goals: Complete smoking cessation. Attend education classes. Improve Knowledge Test score - Stage of Change Stages of Change:: Contemplate - Learning Barriers Learning Barriers: Participates in education - Family Support Do you have family support?: Yes - Tobacco Use Tobacco Use: Non-smoker Do you use smokeless tobacco?: No - Intervention Smoking Cessation Referral:: No Individual Education/Counseling:: No Education Schedule Given:: Yes - Education Attended class for:: Tobacco triggers, Coronary artery disease, Risk factors, Sexuality, Medical compliance, Cardiac A&P, Angina signs & symptoms Psychosocial - Initial Assess - Target Goals Target Goals: Assess presence or absence of depression. Using a valid screening tool, maximizes coping skills. Positive support system - Psychosocial Test Tool Used:: HANDS Depression Questionnaire - Assistive Devices Fall Risk Assessed:: Yes Psychosocial - 60-Day Assess - Target Goals Target Goals: Assess presence or absence of depression. Using a valid screening tool, maximizes coping skills. Positive support system - Stages of Change Stages of Change:: Contemplate - Psychosocial Test Tool Used:: HANDS Depression Questionnaire - Intervention PS - Interventions: Yes Attend Stress Management Classes, Yes Uses Stress Management Skills, No Referral to Mental Health, No Referral to [facility] Case Management, No Referral to Physician - Education Attended classes for:: Coping techniques, Signs & symptoms of depression, Stress management, Relaxation techniques - Assistive Devices Assistive Devices:: None Fall Risk Assessed:: Yes Patient Health Questionnaire 60-Day Re-eval Assessment 1. Little interest or pleasure in doing things: More than half the days 2. Feeling down, depressed, or hopeless: More than half the days 3. Trouble falling or staying asleep, or sleeping too much: More than half the days 4. Feeling tired or having little energy: More than half the days 5. Poor appetite or overeating: More than half the days 6. Feeling bad about yourself -- or that you are a failure or have let yourself or your family down: Several days 7. Trouble concentrating on things, such as reading the newspaper or watching television: Several days 8. Moving or speaking so slowly that other people could have noticed. Or the opposite - being so fidgety or restless that you have been moving around a lot more than usual: Not at all 9. Thoughts that you would be better off , or of hurting yourself in some way: Not at all How difficult have these problems made it for you to do your work, take care of things at home, or get along with other people?: Somewhat difficult Total Score: 12 Self-Efficacy 60-Day Re-eval Assessment We would like to know how confident you are in doing certain activities. Please select your confidence level for:: Select your confidence level for the following using the scale 1-10 where 1 is not at all confident and 10 is totally confident. Your score is the average of all 6 responses. Fatigue: How confident are you that you can keep the fatigue caused by your disease from interfering with the things you want to do? Select Number: 5 Physical Discomfort or Pain: How confident are you that you can keep the physical discomfort or pain of your disease from interfering with the things you want to do? Select Number: 5 Emotional Distress: How confident are you that you can keep the emotional distress caused by your disease from interfering with the things you want to do? Select Number: 5 Other Symptoms or Health Problems: How confident are you that you can keep other symptoms or health problems from interfering with the things you want to do? Select Number: 5 Different Tasks and Activities: How confident are you that you can do the different tasks and activities needed to manage your health condition so as to reduce your need to see a doctor? Select Number: 5 Medication: How confident are you that you can do things other than just taking medication to reduce how much your illness affects your everyday life? Select Number: 5 Total Score:: 5
[2018-02-08 11:18] VITALS: BP 106/60; BP 112/70
== END 2018-02-16 23:59 ==
LOC: CR 13:00
PROVIDERS: Family Provider Family Medicine; PCP Family Medicine; Visit Provider Internal Medicine Cardiovascular Disease
DX: Z95.2 Presence of prosthetic heart valve (principal); E78.5 Hyperlipidemia, unspecified; E11.9 Type 2 diabetes mellitus without complications; I97.89 Other postprocedural complications and disorders of the circulatory system, not elsewhere classified; I48.91 Unspecified atrial fibrillation; Z79.01 Long term (current)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
CPT/HCPCS: 36415; 85610; 93798

== ENCOUNTER 2018-03-15 13:00 | Outpatient (RCR) | payer MEDICARE, OTHER, SELFPAY ==
[2018-02-17 00:57] VITALS: BP 106/60; BP 112/70
[2018-03-10 11:18] VITALS: BP 120/50; BP 150/60
--- NOTE | 2018-03-10 11:19 | CR.ITP_ITS ---
General Information - General Information Admitting Diagnosis: aortic valve replacement - Education/Goals Individual Counseling: Discharge Assessment: High Blood Pressure, Overweight/ Obesity, Diabetes Cardiac Rehabilitation Goals: 1. Maintain the individual as the primary focus of care. 2. To improve the patient's quality of life. 3. Identification of cardiac risk factors and provide cardiac risk factor management. 4. Enhance the psychosocial status of the patient. 5. Reconditioning enough to allow the patient to resume customary activities. 6. Control symptoms of cardiac disease Scale for measuring improvement of personal goals: Enter appropriate number in Comments. 2 = Unchanged. 3 = Slightly Better. 4 = Moderate Improvement. 5 = Met my Goal Personal Goals: Discharge Reassessment: Improve management of stress and emotions, Improve energy level, Improve diet and eating habits (eat healthier) Exercise - 90-Day Assessment - Visit Date of Eval: 03/10/18 Session #:: 23 - 85.71% compliance - Stages of Change Stages of Change:: Action - Exercise Prescription Mode:: Treadmill, Airdyne Frequency (x/week): 3 Duration:: 30 METs: 4 Target Heart Rate:: 107-112 max 105 - Hypertension Resting Blood Pressure:: 120/50 Peak Exercise Blood Pressure:: 150/60 Medication Changes:: No - Intervention Home Exercise/Activity Goal:: Sitting Time <3 hrs/day - Education Goals:: Warm-up, RPE GERTRUDIS Scale, S/S, Safe Exercise, Self-Monitoring - Exercise Program Goals Exercise Program Goals: Aerobic Activity >30 min, B/P <130/80 Nutrition - Initial Assessment - Program Goals Nutrition Program Goals: LDL <70. Total Cholesterol <200. HDL >45. Triglycerides <150. HgbA1C <7%. BMI <25 - Diabetes Do you monitor your blood sugar at home?: No Nutrition - 90-Day Assessment - Program Goals Nutrition Program Goals: LDL <70. Total Cholesterol <200. HDL >45. Triglycerides <150. HgbA1C <7%. BMI <25 - Visit Date of Eval: 03/10/18 - Stages of Change Stages of Change:: Action - Lipids Has the patient seen the dietitian?: No - Diabetes Diabetes:: Yes - Weight Management Weight:: 93.894 kg - Intervention Will attend diet classes:: Yes - Education Attended class for:: Signs & symptoms of hypoglycemia, Signs & symptoms of hyperglycemia, Relate diabetes to coronary artery disease, Healthy eating Tobacco - Initial Assessment - Program Goals Tobacco Program Goals: Complete smoking cessation. Attend education classes. Improve Knowledge Test score - Learning Barriers Learning Barriers: Hearing - hearing loss., Vision - wears glasses at all times for vision correction, Ready to Learn Tobacco - 90-Day Assessment - Program Goals Tobacco Program Goals: Complete smoking cessation. Attend education classes. Improve Knowledge Test score - Stage of Change Stages of Change:: Action - Learning Barriers Learning Barriers: Participates in education - Family Support Do you have family support?: Yes - Tobacco Use Tobacco Use: Non-smoker Do you use smokeless tobacco?: No - Intervention Smoking Cessation Referral:: No Individual Education/Counseling:: No Education Schedule Given:: Yes - Education Attended class for:: Tobacco triggers, Coronary artery disease, Risk factors, Sexuality, Medical compliance, Cardiac A&P, Angina signs & symptoms Psychosocial - 90-Day Assess - Target Goals Target Goals: Assess presence or absence of depression. Using a valid screening tool, maximizes coping skills. Positive support system - Stages of Change Stages of Change:: Action - Psychosocial Test Tool Used:: HANDS Depression Questionnaire - Intervention PS - Interventions: Yes Attend Stress Management Classes, Yes Uses Stress Management Skills, No Referral to Mental Health, No Referral to [facility] Case Management, No Referral to Physician - Education Attended classes for:: Coping techniques, Signs & symptoms of depression, Stress management, Relaxation techniques - Assistive Devices Assistive Devices:: None Fall Risk Assessed:: Yes Patient Health Questionnaire 90-Day Re-eval Assessment 1. Little interest or pleasure in doing things: More than half the days 2. Feeling down, depressed, or hopeless: More than half the days 3. Trouble falling or staying asleep, or sleeping too much: Several days 4. Feeling tired or having little energy: Several days 5. Poor appetite or overeating: More than half the days 6. Feeling bad about yourself -- or that you are a failure or have let yourself or your family down: Several days 7. Trouble concentrating on things, such as reading the newspaper or watching television: Several days 8. Moving or speaking so slowly that other people could have noticed. Or the opposite - being so fidgety or restless that you have been moving around a lot more than usual: Not at all 9. Thoughts that you would be better off , or of hurting yourself in some way: Not at all How difficult have these problems made it for you to do your work, take care of things at home, or get along with other people?: Somewhat difficult Total Score: 10 Self-Efficacy 90-Day Re-eval Assessment We would like to know how confident you are in doing certain activities. Please select your confidence level for:: Select your confidence level for the following using the scale 1-10 where 1 is not at all confident and 10 is totally confident. Your score is the average of all 6 responses. Fatigue: How confident are you that you can keep the fatigue caused by your disease from interfering with the things you want to do? Select Number: 5 Physical Discomfort or Pain: How confident are you that you can keep the physical discomfort or pain of your disease from interfering with the things you want to do? Select Number: 5 Emotional Distress: How confident are you that you can keep the emotional distress caused by your disease from interfering with the things you want to do? Select Number: 5 Other Symptoms or Health Problems: How confident are you that you can keep other symptoms or health problems from interfering with the things you want to do? Select Number: 5 Different Tasks and Activities: How confident are you that you can do the different tasks and activities needed to manage your health condition so as to reduce your need to see a doctor? Select Number: 5 Medication: How confident are you that you can do things other than just taking medication to reduce how much your illness affects your everyday life? Select Number: 5 Total Score:: 5
== END 2018-03-18 23:59 ==
LOC: CR 13:00
PROVIDERS: Family Provider Family Medicine; PCP Family Medicine; Visit Provider Internal Medicine Cardiovascular Disease
DX: I48.91 Unspecified atrial fibrillation (principal); E78.5 Hyperlipidemia, unspecified; E11.9 Type 2 diabetes mellitus without complications; I97.89 Other postprocedural complications and disorders of the circulatory system, not elsewhere classified; Z95.2 Presence of prosthetic heart valve; Z79.01 Long term (current)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; E03.9 Hypothyroidism, unspecified; M06.9 Rheumatoid arthritis, unspecified
CPT/HCPCS: 36415; 80048; 80061; 80076; 82043; 82570; 84443; 85025; 85610; 93798

== ENCOUNTER 2018-03-15 13:53 | Outpatient (RCR) | payer MEDICARE, OTHER, SELFPAY ==
[2018-03-08 11:52] LABS: Absolute Lymphocyte Count 1.75 X10^3/ul (0.83-4.51); Absolute Neutrophil Count 3.9 X10^3/uL (2.0-7.7); Basophil# 0.04 X10^3/uL; Basophil% 0.6 % (0-1); Eosinophil# 0.11 X10^3/uL; Eosinophils% 1.7 % (0-5); Hematocrit 35.4 % (37-47); Hemoglobin 10.7 g/dl (12.0-15.0); Lymphocyte # 1.75 X10^3/ul (4.0); Mean Corp Hgb Conc 30.2 g/gl (32-36); Mean Corpuscular Volume 92.7 fL (81-99); Mean Platelet Vol. 10.2 fl (6.2-12.0); Monocyte# 0.64 X10^3/uL; Monocyte% 9.9 % (0-10); Neutrophil # 3.94 X10^3/uL (2.7-7.7); Neutrophil % 60.6 % (47-70); POSITIVE COUNT NO; POSITIVE DIFFERENTIAL NO; POSITIVE MORPHOLOGY NO; Platelet Count 245 K/mm3 (150-450); RBC Distribution Width CV 15.8 % (11.6-14.6); RBC Distribution Width SD 53.1 fl (35.1-43.9); Red Blood Count 3.82 M/mm3 (4.2-5.4); White Blood Count 6.5 K/mm3 (4.4-11.0)
[2018-03-08 11:57] LABS: International Normalized Ratio 1.9; Prothrombin Time (Protime)PT. 21.5 SECONDS (11.7-14.9)
[2018-03-08 12:13] LABS: Microalbumin,Random Urine 20.4 mg/L (NO RANGE EST.); Microalbumin:Creatinine Ratio 18.4 mg/g CRE (<30 mg/g CRE)
[2018-03-08 12:39] LABS: AST(SGOT) 18 U/L (15-37); Alanine Aminotransfer ALT/SGPT 17 U/L (13-56); Albumin, Serum 3.3 g/dL (3.2-5.0); Alkaline Phosphatase 77 U/L (45-117); Anion Gap 7 (5-15); BUN 14 mg/dL (7-18); BUN/Creat Ratio 13.9 RATIO (10-20); Bilirubin, Direct 0.08 mg/dL (0.00-0.30); Calcium,Total 8.7 mg/dL (8.5-10.1); Chloride 105 mmol/L (98-107); Cholesterol 116 mg/dL (200); Creatinine, Serum 1.01 mg/dL (0.55-1.02); EST Glomerular Filtration Rate 58 mL/min (>60); Est Glom Filt Rate - Afr Amer 70 mL/min (>60); Globulin 3.8 g/dL (2.2-4.2); Glucose 88 mg/dL (74-106); High Density Lipoprotein 45 mg/dL; Potassium 4.7 mmol/L (3.5-5.1); Protein, Total 7.1 g/dL (6.4-8.2); Sodium Level 142 mmol/L (136-145); Thyroid Stim Hormone (TSH) 2.76 uIU/mL (0.358-3.74); Triglycerides 100 mg/dL; Very Low Density Lipoprotein 20 mg/dL (5-40)
[2018-03-15 15:22] LABS: International Normalized Ratio 2.9; Prothrombin Time (Protime)PT. 30.1 SECONDS (11.7-14.9)
== END 2018-03-15 15:00 | disposition home or self-care (01) ==
LOC: LAB 13:53
PROVIDERS: Family Provider Family Medicine; PCP Family Medicine; Visit Provider Internal Medicine Cardiovascular Disease
DX: I48.91 Unspecified atrial fibrillation (principal); E11.9 Type 2 diabetes mellitus without complications; E03.9 Hypothyroidism, unspecified; M06.9 Rheumatoid arthritis, unspecified
CPT/HCPCS: 36415; 80048; 80061; 80076; 82043; 82570; 84443; 85025; 85610

== ENCOUNTER → 2018-03-20 14:13 | Outpatient (CLI) | payer MEDICARE, OTHER, SELFPAY ==
[2018-03-20 16:37] LABS: Hematocrit 31.2 % (37-47); Hemoglobin 9.8 g/dl (12.0-15.0); Mean Corp Hgb Conc 31.4 g/gl (32-36); Mean Corpuscular Volume 92.3 fL (81-99); Mean Platelet Vol. 10.4 fl (6.2-12.0); Platelet Count 341 K/mm3 (150-450); RBC Distribution Width CV 15.5 % (11.6-14.6); RBC Distribution Width SD 50.7 fl (35.1-43.9); Red Blood Count 3.38 M/mm3 (4.2-5.4); White Blood Count 10.3 K/mm3 (4.4-11.0)
[2018-03-20 16:54] LABS: Scan Indicated on CBC? Y/N NO
== END ==
PROVIDERS: Family Provider Family Medicine; PCP Family Medicine; Visit Provider Internal Medicine Cardiovascular Disease
DX: R06.02 Shortness of breath (principal)
CPT/HCPCS: 36415; 85027

== ENCOUNTER → 2018-03-30 13:50 | Outpatient (CLI) | payer MEDICARE, OTHER, SELFPAY ==
--- NOTE | 2018-03-30 13:53 | ECHOCS_ITS ---
Version 2 Reason For Study: SOB Procedure This was a 2D Doppler, Color Flow transthoracic echocardiogram. The study was technically difficult. Exam performed in department. Left Ventricle Normal LV size. The estimated ejection fraction is 45 %. Septal motion consistent with IVCD. Post operative septal motion. Stage 2 diastolic dysfunction. There is mild global hypokinesis of the left ventricle. Right Ventricle Normal RV size. Normal systolic function. Atria Normal left atrium. Normal right atrium. Mitral Valve Normal mitral valve. Mild (1+) eccentric mitral valve insufficiency. Tricuspid Valve Normal tricuspid valve. Mild to moderate (1-2+) tricuspid valve insufficiency. Pulmonary artery systolic pressure is 38 mmHg. Aortic Valve Mean aortic valve gradient is 12 mmHg. Peak aortic valve gradient 20 mmHg. Stable appearing bioprosthetic aortic valve apparatus. Pulmonic Valve The pulmonic valve is not well visualized. Great Vessels Normal aortic root. The pulmonary artery is normal size. Normal inferior vena cava. Pericardium/Pleural No pericardial effusion. Medication 22 gauge I.V. with prn adaptor inserted into right arm. Diluted definity 3ml given slow IV push to enhance endocardial definition. MMode/2D Measurements & Calculations LVIDd: 5.1 cm IVSd: 0.87 cm LVOT diam: 1.9 cm LVIDs: 3.3 cm LVPWd: 0.93 cm LVOT area: 2.9 cm2 RVDd: 2.9 cm FS: 36.2 % Ao root diam: 2.6 cm LAV(MOD-bp): 52.8 ml LA dimension: 3.6 cm LAV(MOD-bp) Indexed: 29.2 ml/m2 LA A4 area: 18.2 cm2 LAV(MOD-sp2): 52.8 ml LAV(MOD-sp4): 47.2 ml RA A4 area: 18.7 cm2 Time Measurements MV dec time: 0.30 sec Doppler Measurements & Calculations MV E max spike: 126.2 cm/sec Lat Peak E' Spike: 9.7 cm/sec Ao V2 max: 224.0 cm/sec MV A max spike: 68.3 cm/sec E/E' lat: 13.0 Ao max P.1 mmHg MV E/A: 1.8 Ao V2 mean: 159.0 cm/sec Ao mean P.4 mmHg Ao V2 VTI: 52.8 cm DANA(I,D): 1.3 cm2 DANA(V,D): 1.3 cm2 LV V1 max: 101.4 cm/sec SV(LVOT): 70.2 ml PA V2 max: 114.4 cm/sec LV V1 max P.1 mmHg LV V1 mean P.4 mmHg LV V1 mean: 74.8 cm/sec LV V1 VTI: 24.5 cm TR max spike: 290.2 cm/sec TR max P.8 mmHg Interpretation Summary Normal LV size. The estimated ejection fraction is 45 %. Post operative septal motion. Stage 2 diastolic dysfunction. There is mild global hypokinesis of the left ventricle. Mild (1+) eccentric mitral valve insufficiency. Compared to the previous the AV has been replaced Contrast injection was performed. Ordering Physician: Bird Garza Referring Physician: Bird Garza Performed By: Amie Aquino RDCS
== END ==
PROVIDERS: Family Provider Family Medicine; PCP Family Medicine; Visit Provider Family Medicine
DX: R06.02 Shortness of breath (principal)
CPT/HCPCS: 93306; Q9957; A4216; C8929

== ENCOUNTER 2018-03-31 10:10 | Outpatient (RCR) | payer MEDICARE, OTHER, SELFPAY ==
[2018-03-31 10:38] LABS: International Normalized Ratio 3.1; Prothrombin Time (Protime)PT. 32.5 SECONDS (11.7-14.9)
[2018-03-31 11:05] LABS: Anion Gap 6 (5-15); BUN 23 mg/dL (7-18); BUN/Creat Ratio 16.8 RATIO (10-20); Calcium,Total 8.7 mg/dL (8.5-10.1); Chloride 104 mmol/L (98-107); Creatinine, Serum 1.37 mg/dL (0.55-1.02); EST Glomerular Filtration Rate 41 mL/min (>60); Est Glom Filt Rate - Afr Amer 49 mL/min (>60); Glucose 95 mg/dL (74-106); Sodium Level 140 mmol/L (136-145)
[2018-03-31 11:17] LABS: BNP,B-Type NATRIURETIC PEPTIDE 371.8 pg/mL (0-100)
== END 2018-03-31 11:00 | disposition home or self-care (01) ==
LOC: LAB 10:10
PROVIDERS: Physician Assistant Medical; Family Provider Family Medicine; PCP Family Medicine; Visit Provider Internal Medicine Cardiovascular Disease
DX: I48.91 Unspecified atrial fibrillation (principal); I97.89 Other postprocedural complications and disorders of the circulatory system, not elsewhere classified; I35.0 Nonrheumatic aortic (valve) stenosis; R06.00 Dyspnea, unspecified; I27.21 Secondary pulmonary arterial hypertension; Z95.2 Presence of prosthetic heart valve
CPT/HCPCS: 36415; 80048; 83880; 85610

== ENCOUNTER → 2018-04-07 13:52 | Outpatient (CLI) | payer MEDICARE, OTHER, SELFPAY ==
--- NOTE | 2018-04-07 14:10 | RAD_ITS ---
STUDY: X-RAY CHEST REASON FOR EXAM: Female, 68 years old. Degenerative TECHNIQUE: 2 views COMPARISON: February 06, 2018 FINDINGS: Mild cardiomegaly with median sternotomy wires. No acute pneumonia or failure and no pleural effusions.. Normal visualized thoracic spine. Normal visualized ribs, clavicles, and shoulders. There is no demonstrated abnormality of the visualized soft tissue structures of the upper abdomen. RAD/Chest PA and Lateral IMPRESSION: Moderate cardiomegaly. No acute findings in the lungs Electronically Signed: Dave Anderson, at 6:57 EDT Tel , Service support ,
[2018-04-07 15:27] LABS: Absolute Lymphocyte Count 1.61 X10^3/ul (0.83-4.51); Absolute Neutrophil Count 6.1 X10^3/uL (2.0-7.7); Basophil# 0.05 X10^3/uL; Basophil% 0.6 % (0-1); Eosinophil# 0.12 X10^3/uL; Eosinophils% 1.4 % (0-5); Hematocrit 35.2 % (37-47); Hemoglobin 10.8 g/dl (12.0-15.0); Lymphocyte # 1.61 X10^3/ul (4.0); Lymphocyte % 19.3 % (19-41); Mean Corp Hgb Conc 30.7 g/gl (32-36); Mean Corpuscular Hgb 28.5 pg (27.0-32.0); Mean Corpuscular Volume 92.9 fL (81-99); Mean Platelet Vol. 10.2 fl (6.2-12.0); Monocyte# 0.45 X10^3/uL; Monocyte% 5.4 % (0-10); Neutrophil # 6.11 X10^3/uL (2.7-7.7); Neutrophil % 73.1 % (47-70); Platelet Count 283 K/mm3 (150-450); RBC Distribution Width SD 56.3 fl (35.1-43.9); Red Blood Count 3.79 M/mm3 (4.2-5.4); White Blood Count 8.4 K/mm3 (4.4-11.0)
[2018-04-07 15:35] LABS: POSITIVE COUNT NO; POSITIVE DIFFERENTIAL NO; POSITIVE MORPHOLOGY NO
[2018-04-07 15:43] LABS: Anion Gap 6 (5-15); BUN 23 mg/dL (7-18); BUN/Creat Ratio 15.2 RATIO (10-20); Calcium,Total 8.7 mg/dL (8.5-10.1); Chloride 104 mmol/L (98-107); Creatinine, Serum 1.51 mg/dL (0.55-1.02); EST Glomerular Filtration Rate 37 mL/min (>60); Est Glom Filt Rate - Afr Amer 44 mL/min (>60); Glucose 102 mg/dL (74-106); Potassium 4.5 mmol/L (3.5-5.1); Sodium Level 139 mmol/L (136-145); T4 Free Direct 1.15 ng/dL (0.76-1.46); Thyroid Stim Hormone (TSH) 1.64 uIU/mL (0.358-3.74)
== END ==
LOC: RAD 13:53 → LAB 14:27
PROVIDERS: Family Provider Family Medicine; PCP Family Medicine; Visit Provider Nurse Practitioner Family
DX: R06.00 Dyspnea, unspecified (principal); D64.9 Anemia, unspecified; Z95.2 Presence of prosthetic heart valve; Z87.39 Personal history of other diseases of the musculoskeletal system and connective tissue
CPT/HCPCS: 36415; 71046; 80048; 84439; 84443; 85025

== ENCOUNTER 2018-04-17 13:00 | Outpatient (RCR) | payer MEDICARE, OTHER, SELFPAY ==
[2018-03-19 00:49] VITALS: BP 120/50; BP 150/60
--- NOTE | 2018-04-07 13:09 | EKG12_ITS ---
Test Reason : ARRYTHMIA,BRADYCARDI Blood Pressure : / mmHG Vent. Rate : 045 BPM Atrial Rate : 039 BPM P-R Int : 000 ms QRS Dur : 096 ms QT Int : 494 ms P-R-T Axes : 000 020 228 degrees QTc Int : 427 ms Junctional rhythm Anteroseptal infarct , age undetermined ST & T wave abnormality, consider inferolateral ischemia Abnormal ECG Confirmed by JR JORDAN, RAMONA ([id number]), supervising film or videotape editor DIANE NAVARRETE ([id number]) on 04/18/2018 3:30:47 PM Referred By: Taz Agee Confirmed By:RAMONA NORRIS MD
--- NOTE | 2018-04-12 09:54 | CR.ITP_ITS ---
General Information - General Information Admitting Diagnosis: aortic valve replacement - Education/Goals Barriers to Learning: None Individual Counseling: Discharge Assessment: High Blood Pressure, Overweight/ Obesity, Diabetes Cardiac Rehabilitation Goals: 1. Maintain the individual as the primary focus of care. 2. To improve the patient's quality of life. 3. Identification of cardiac risk factors and provide cardiac risk factor management. 4. Enhance the psychosocial status of the patient. 5. Reconditioning enough to allow the patient to resume customary activities. 6. Control symptoms of cardiac disease Scale for measuring improvement of personal goals: Enter appropriate number in Comments. 2 = Unchanged. 3 = Slightly Better. 4 = Moderate Improvement. 5 = Met my Goal Personal Goals: Discharge Reassessment: Improve management of stress and emotions, Improve energy level, Improve diet and eating habits (eat healthier) Exercise - Final/Discharge - Visit Date of Eval: 04/12/18 Session #:: 34 - Stages of Change Stages of Change:: Action - Exercise Prescription Mode:: Treadmill, NuStep Frequency (x/week): 3 Duration:: 30 METs: 4.5 Target Heart Rate:: 107-112 - Hypertension Resting Blood Pressure:: 98/60 Peak Exercise Blood Pressure:: 130/50 - Intervention Home Exercise/Activity Goal:: Sitting Time <3 hrs/day - Education Goal Progress: Progressing - Exercise Program Goals Exercise Program Goals: Aerobic Activity >30 min, B/P <130/80 Nutrition - Initial Assessment - Program Goals Nutrition Program Goals: LDL <70. Total Cholesterol <200. HDL >45. Triglycerides <150. HgbA1C <7%. BMI <25 - Diabetes Do you monitor your blood sugar at home?: No Nutrition - Final Assessment - Program Goals Nutrition Program Goals: LDL <70. Total Cholesterol <200. HDL >45. Triglycerides <150. HgbA1C <7%. BMI <25 - Visit Date of Eval: 04/12/18 - Stages of Change Stages of Change:: Action - Weight Management Weight:: 93.44 kg - Intervention Referral to dietitian:: No Referral to Diabetic Clinic:: No Will attend diet classes:: Yes - Education Education Goal Reached?: Yes Tobacco - Initial Assessment - Program Goals Tobacco Program Goals: Complete smoking cessation. Attend education classes. Improve Knowledge Test score - Learning Barriers Learning Barriers: Hearing - hearing loss., Vision - wears glasses at all times for vision correction, Ready to Learn Tobacco - Final Assessment - Program Goals Tobacco Program Goals: Complete smoking cessation. Attend education classes. Improve Knowledge Test score - Stage of Change Stages of Change:: Action - Family Support Do you have family support?: Yes - Tobacco Use Tobacco Use: Non-smoker Do you use smokeless tobacco?: No - Intervention Smoking Cessation Referral:: No Individual Education/Counseling:: No Education Schedule Given:: Yes - Education Education Goal Reached?: Yes Psychosocial - Initial Assess - Target Goals Target Goals: Assess presence or absence of depression. Using a valid screening tool, maximizes coping skills. Positive support system - Psychosocial Test Tool Used:: HANDS Depression Questionnaire - Assistive Devices Fall Risk Assessed:: Yes Psychosocial - Final Assessmen - Target Goals Target Goals: Assess presence or absence of depression. Using a valid screening tool, maximizes coping skills. Positive support system - Stages of Change Stages of Change:: Action - Psychosocial Test Tool Used:: HANDS Depression Questionnaire - Intervention PS - Interventions: Yes Attend Stress Management Classes, Yes Uses Stress Management Skills, No Referral to Mental Health, No Referral to [facility] Case Management, No Referral to Physician - Education Education Goal Reached?: Yes - Assistive Devices Assistive Devices:: None Fall Risk Assessed:: Yes Patient Health Questionnaire Discharge Assessment 1. Little interest or pleasure in doing things: Several days 2. Feeling down, depressed, or hopeless: Several days 3. Trouble falling or staying asleep, or sleeping too much: Several days 4. Feeling tired or having little energy: Several days 5. Poor appetite or overeating: Several days 6. Feeling bad about yourself -- or that you are a failure or have let yourself or your family down: Several days 7. Trouble concentrating on things, such as reading the newspaper or watching television: Several days 8. Moving or speaking so slowly that other people could have noticed. Or the opposite - being so fidgety or restless that you have been moving around a lot more than usual: Several days 9. Thoughts that you would be better off , or of hurting yourself in some way: Not at all How difficult have these problems made it for you to do your work, take care of things at home, or get along with other people?: Not difficult at all Total Score: 8 RADHA-Q SV Test - Statements CAD is a disease of the arteries in the heart: False Examples of risk factors for heart disease: True Angina is chest pain or discomfort: True The benefits of resistance training include: True Eating more meat and dairy products: False Anti-platelet medications such as aspirin are important: True The only effective way to manage stress: False An exercise warm-up slowly increases heart rate: True Prepared, processed foods usually have high sodium: True Depression is common after a heart attack: True The statin medications lower cholesterol: True To control blood pressure, lower the amount of sodium: True If someone gets chest discomfort during walking: False Transfats are partially hydrogenated vegetable oils: True Sleep apnea that is not treated increases the risk: False To control cholesterol, one should become a vegetarian: False Someone knows if he/she is exercising at the right level: True Diabetes cannot be prevented with exercise & health eating: False Stress is a large risk for heart attack: True A diet that can help lower blood pressure is rich in: True - Total Score Total Correct Responses: 20 Self-Efficacy Discharge Assessment We would like to know how confident you are in doing certain activities. Please select your confidence level for:: Select your confidence level for the following using the scale 1-10 where 1 is not at all confident and 10 is totally confident. Your score is the average of all 6 responses. Fatigue: How confident are you that you can keep the fatigue caused by your disease from interfering with the things you want to do? Select Number: 6 Physical Discomfort or Pain: How confident are you that you can keep the physical discomfort or pain of your disease from interfering with the things you want to do? Select Number: 6 Emotional Distress: How confident are you that you can keep the emotional distress caused by your disease from interfering with the things you want to do? Select Number: 6 Other Symptoms or Health Problems: How confident are you that you can keep other symptoms or health problems from interfering with the things you want to do? Select Number: 6 Different Tasks and Activities: How confident are you that you can do the different tasks and activities needed to manage your health condition so as to reduce your need to see a doctor? Select Number: 6 Medication: How confident are you that you can do things other than just taking medication to reduce how much your illness affects your everyday life? Select Number: 6 Total Score:: 6 Nutrition Survey - Nutrition Survey Instructions Scoring Instructions: Scoring is as follows: Yes = 1 points. No = 0 point. Patient score that is >/=12 is considered to be at potential nutritional risk and could benefit from a referral to a registered dietitian. - Nutrition Survey Discharge Have you lost >10 lbs over the past 2 months without trying?: No Are you following a special diet at home for diabetes, low fat, or low salt?: Yes Are you interested in meeting with a dietitian for help understanding your diet? : No Do you eat less than 3 meals a day?: No Do you eat fatty meats (sanchez, sausage, ribs, etc), fried foods, desserts, large amounts of salad dressings, margarine, butter, or cheese most days?: No Do you have food allergies? [Enter types in comment field]: No Do you eat in restaurants more than 3 times a week?: No Do you season food with salt, seasoning salt, or garlic salt?: No Do you used canned, boxed, frozen meals, or soups, seasoning packets?: No Total Score:: 1
[2018-04-12 09:56] VITALS: BP 130/50; BP 98/60
== END 2018-04-18 23:59 ==
LOC: CR 13:00
PROVIDERS: Family Provider Family Medicine; PCP Family Medicine; Visit Provider Internal Medicine Cardiovascular Disease
DX: I48.91 Unspecified atrial fibrillation (principal); E78.5 Hyperlipidemia, unspecified; E11.9 Type 2 diabetes mellitus without complications; I97.89 Other postprocedural complications and disorders of the circulatory system, not elsewhere classified; Z95.2 Presence of prosthetic heart valve; Z79.01 Long term (current)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; R06.00 Dyspnea, unspecified; D64.9 Anemia, unspecified; Z87.39 Personal history of other diseases of the musculoskeletal system and connective tissue
CPT/HCPCS: 36415; 71046; 80048; 84439; 84443; 85025; 93005; 93798

== ENCOUNTER 2018-04-24 13:00 | Outpatient (RCR) | payer MEDICARE, OTHER, SELFPAY ==
[2018-04-19 00:49] VITALS: BP 130/50; BP 98/60
--- NOTE | 2018-05-12 13:24 | PCM.CR.ITP ---
Exercise - Final/Discharge - Visit Date of Eval: 04/24/18 - graduated 04/24/2018 - Stages of Change Stages of Change:: Action - Exercise Prescription Mode:: Treadmill, NuStep Frequency (x/week): 3 Duration:: 35 METs: 4.5 Target Heart Rate:: 107-112 - Hypertension Do any of the following apply?: Yes Resting Blood Pressure:: 132/48 Peak Exercise Blood Pressure:: 142/70 - Intervention Home Exercise/Activity Goal:: Moderate Exercise 30 min/day x 5 days/wk - Education Goal Progress: Goal Met - Exercise Program Goals Exercise Program Goals: Aerobic Activity >30 min Nutrition - Initial Assessment - Program Goals Nutrition Program Goals: LDL <70. Total Cholesterol <200. HDL >45. Triglycerides <150. HgbA1C <7%. BMI <25 - Diabetes Do you monitor your blood sugar at home?: No Nutrition - Final Assessment - Program Goals Nutrition Program Goals: LDL <70. Total Cholesterol <200. HDL >45. Triglycerides <150. HgbA1C <7%. BMI <25 - Visit Date of Eval: 05/12/18 - Stages of Change Stages of Change:: Action - Diabetes Diabetes:: No - Weight Management Height: 4 ft 9 in Weight:: 204 lb Body Fat %:: 50.4 - Intervention Referral to dietitian:: No Referral to Diabetic Clinic:: No Will attend diet classes:: Yes - Education Education Goal Reached?: Yes Tobacco - Initial Assessment - Program Goals Tobacco Program Goals: Complete smoking cessation. Attend education classes. Improve Knowledge Test score - Learning Barriers Learning Barriers: Hearing - hearing loss., Vision - wears glasses at all times for vision correction, Ready to Learn Tobacco - Final Assessment - Program Goals Tobacco Program Goals: Complete smoking cessation. Attend education classes. Improve Knowledge Test score - Learning Barriers Cardiac Knowledge Test Score:: 20 - Family Support Do you have family support?: Yes - Tobacco Use Tobacco Use: Non-smoker Do you use smokeless tobacco?: No - Intervention Education Schedule Given:: Yes - Education Education Goal Reached?: Yes Psychosocial - Initial Assess - Target Goals Target Goals: Assess presence or absence of depression. Using a valid screening tool, maximizes coping skills. Positive support system - Psychosocial Test Tool Used:: HANDS Depression Questionnaire - Assistive Devices Fall Risk Assessed:: Yes Psychosocial - Final Assessmen - Target Goals Target Goals: Assess presence or absence of depression. Using a valid screening tool, maximizes coping skills. Positive support system - Stages of Change Stages of Change:: Action - Psychosocial Test Tool Used:: HANDS Depression Questionnaire - Intervention PS - Interventions: Yes Attend Stress Management Classes, Yes Uses Stress Management Skills, No Referral to Mental Health, No Referral to [facility] Case Management, No Referral to Physician - Education Education Goal Reached?: Yes - Patient/Program Goal Preventative Medication(s):: Aspirin, Clopidogrel, Beta noemi, Statin/lipid - Assistive Devices Assistive Devices:: None Fall Risk Assessed:: Yes Patient Health Questionnaire Discharge Assessment 1. Little interest or pleasure in doing things: Not at all 2. Feeling down, depressed, or hopeless: Not at all 3. Trouble falling or staying asleep, or sleeping too much: Not at all 4. Feeling tired or having little energy: Not at all 5. Poor appetite or overeating: Not at all 6. Feeling bad about yourself -- or that you are a failure or have let yourself or your family down: Not at all 7. Trouble concentrating on things, such as reading the newspaper or watching television: Not at all 8. Moving or speaking so slowly that other people could have noticed. Or the opposite - being so fidgety or restless that you have been moving around a lot more than usual: Not at all 9. Thoughts that you would be better off , or of hurting yourself in some way: Not at all How difficult have these problems made it for you to do your work, take care of things at home, or get along with other people?: Not difficult at all Total Score: 0 RADHA-Q SV Test - Statements CAD is a disease of the arteries in the heart: False Examples of risk factors for heart disease: True Angina is chest pain or discomfort: True The benefits of resistance training include: True Eating more meat and dairy products: False Anti-platelet medications such as aspirin are important: True The only effective way to manage stress: False An exercise warm-up slowly increases heart rate: True Prepared, processed foods usually have high sodium: True Depression is common after a heart attack: True The statin medications lower cholesterol: True To control blood pressure, lower the amount of sodium: True If someone gets chest discomfort during walking: False Transfats are partially hydrogenated vegetable oils: True Sleep apnea that is not treated increases the risk: False To control cholesterol, one should become a vegetarian: True Someone knows if he/she is exercising at the right level: False Diabetes cannot be prevented with exercise & health eating: False Stress is a large risk for heart attack: True A diet that can help lower blood pressure is rich in: True - Total Score Total Correct Responses: 18 Self-Efficacy Discharge Assessment We would like to know how confident you are in doing certain activities. Please select your confidence level for:: Select your confidence level for the following using the scale 1-10 where 1 is not at all confident and 10 is totally confident. Your score is the average of all 6 responses. Fatigue: How confident are you that you can keep the fatigue caused by your disease from interfering with the things you want to do? Select Number: 10 Physical Discomfort or Pain: How confident are you that you can keep the physical discomfort or pain of your disease from interfering with the things you want to do? Select Number: 10 Emotional Distress: How confident are you that you can keep the emotional distress caused by your disease from interfering with the things you want to do? Select Number: 10 Other Symptoms or Health Problems: How confident are you that you can keep other symptoms or health problems from interfering with the things you want to do? Select Number: 10 Different Tasks and Activities: How confident are you that you can do the different tasks and activities needed to manage your health condition so as to reduce your need to see a doctor? Select Number: 10 Medication: How confident are you that you can do things other than just taking medication to reduce how much your illness affects your everyday life? Select Number: 10 Total Score:: 10 Nutrition Survey - Nutrition Survey Instructions Scoring Instructions: Scoring is as follows: Yes = 1 points. No = 0 point. Patient score that is >/=12 is considered to be at potential nutritional risk and could benefit from a referral to a registered dietitian. - Nutrition Survey Discharge Have you lost >10 lbs over the past 2 months without trying?: No Are you following a special diet at home for diabetes, low fat, or low salt?: Yes Are you interested in meeting with a dietitian for help understanding your diet?: No Do you eat less than 3 meals a day?: Yes Do you eat fatty meats (sanchez, sausage, ribs, etc), fried foods, desserts, large amounts of salad dressings, margarine, butter, or cheese most days?: No Do you have food allergies? [Enter types in comment field]: No Do you eat in restaurants more than 3 times a week?: No Do you season food with salt, seasoning salt, or garlic salt?: No Do you used canned, boxed, frozen meals, or soups, seasoning packets?: No Total Score:: 2
[2018-05-12 13:29] VITALS: BP 132/48; BP 142/70
== END 2018-04-28 13:50 | disposition home or self-care (01) ==
LOC: CR 13:00
PROVIDERS: Family Provider Family Medicine; PCP Family Medicine; Visit Provider Internal Medicine Cardiovascular Disease
DX: I48.91 Unspecified atrial fibrillation (principal); E78.5 Hyperlipidemia, unspecified; E11.9 Type 2 diabetes mellitus without complications; I97.89 Other postprocedural complications and disorders of the circulatory system, not elsewhere classified; Z95.2 Presence of prosthetic heart valve; Z79.01 Long term (current)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; R06.00 Dyspnea, unspecified; D64.9 Anemia, unspecified; Z87.39 Personal history of other diseases of the musculoskeletal system and connective tissue; M06.9 Rheumatoid arthritis, unspecified; E03.9 Hypothyroidism, unspecified
CPT/HCPCS: 36415; 82040; 82565; 84450; 84460; 84520; 85025; 85610; 85652; 86140; 93798

== ENCOUNTER → 2018-04-25 10:56 | Outpatient (CLI) | payer MEDICARE, OTHER, SELFPAY | PROVIDERS: Family Provider Family Medicine; PCP Family Medicine; Visit Provider Nurse Practitioner Family | DX: Z95.2 Presence of prosthetic heart valve (principal); I49.8 Other specified cardiac arrhythmias; I97.89 Other postprocedural complications and disorders of the circulatory system, not elsewhere classified; I48.91 Unspecified atrial fibrillation | CPT/HCPCS: 93225; 93226 ==

== ENCOUNTER 2018-05-12 10:55 | Outpatient (RCR) | payer MEDICARE, OTHER, SELFPAY ==
[2018-04-21 12:50] LABS: Absolute Lymphocyte Count 1.43 X10^3/ul (0.83-4.51); Absolute Neutrophil Count 4.2 X10^3/uL (2.0-7.7); Basophil# 0.03 X10^3/uL; Basophil% 0.5 % (0-1); Eosinophil# 0.07 X10^3/uL; Eosinophils% 1.1 % (0-5); Hematocrit 31.5 % (37-47); Hemoglobin 9.9 g/dl (12.0-15.0); Lymphocyte # 1.43 X10^3/ul (4.0); Lymphocyte % 22.8 % (19-41); Mean Corp Hgb Conc 31.4 g/gl (32-36); Mean Corpuscular Hgb 29.6 pg (27.0-32.0); Mean Platelet Vol. 10.2 fl (6.2-12.0); Neutrophil # 4.23 X10^3/uL (2.7-7.7); Neutrophil % 67.4 % (47-70); Platelet Count 202 K/mm3 (150-450); RBC Distribution Width CV 16.7 % (11.6-14.6); RBC Distribution Width SD 55.8 fl (35.1-43.9); Red Blood Count 3.35 M/mm3 (4.2-5.4); White Blood Count 6.3 K/mm3 (4.4-11.0)
[2018-04-21 12:51] LABS: Erythrocyte Sedimentation Rate 11 mm/hr (0-30)
[2018-04-21 12:54] LABS: POSITIVE COUNT NO; POSITIVE DIFFERENTIAL NO; POSITIVE MORPHOLOGY NO
[2018-04-21 12:55] LABS: International Normalized Ratio 1.8; Prothrombin Time (Protime)PT. 21.2 SECONDS (11.7-14.9)
[2018-04-21 13:31] LABS: AST(SGOT) 17 U/L (15-37); Alanine Aminotransfer ALT/SGPT 19 U/L (13-56); Albumin, Serum 3.2 g/dL (3.2-5.0); BUN 24 mg/dL (7-18); EST Glomerular Filtration Rate 53 mL/min (>60); Est Glom Filt Rate - Afr Amer 64 mL/min (>60)
[2018-04-28 16:06] LABS: Hematocrit 33.8 % (37-47); Hemoglobin 10.7 g/dl (12.0-15.0)
[2018-04-28 16:10] LABS: International Normalized Ratio 2.4; Protein, Urine (Random) 8.7 mg/dL (<11.9); Protein:Creat Ratio 235 mg/g CRE (0-200); Prothrombin Time (Protime)PT. 26.1 SECONDS (11.7-14.9)
[2018-04-28 16:34] LABS: Albumin, Serum 3.3 g/dL (3.2-5.0); BUN 17 mg/dL (7-18); BUN/Creat Ratio 15.9 RATIO (10-20); Calcium,Total 8.8 mg/dL (8.5-10.1); Chloride 101 mmol/L (98-107); Creatinine, Serum 1.07 mg/dL (0.55-1.02); EST Glomerular Filtration Rate 54 mL/min (>60); Est Glom Filt Rate - Afr Amer 66 mL/min (>60); Glucose 106 mg/dL (74-106); Phosphorus 2.9 mg/dL (2.5-4.9); Potassium 4.3 mmol/L (3.5-5.1); Sodium Level 140 mmol/L (136-145)
[2018-04-28 16:44] LABS: PTHIN 131.3 pg/mL (18.4-80.1); Vitamin D,25 Hydroxy 30.9 ng/mL (29.95-100.01)
[2018-05-12 11:27] LABS: International Normalized Ratio 2.3; Prothrombin Time (Protime)PT. 25.2 SECONDS (11.7-14.9)
== END 2018-05-12 12:00 | disposition home or self-care (01) ==
LOC: LAB 10:55
PROVIDERS: Family Provider Family Medicine; PCP Family Medicine; Visit Provider Internal Medicine Cardiovascular Disease
DX: I48.91 Unspecified atrial fibrillation (principal); I97.89 Other postprocedural complications and disorders of the circulatory system, not elsewhere classified; M06.9 Rheumatoid arthritis, unspecified; E11.9 Type 2 diabetes mellitus without complications; E03.9 Hypothyroidism, unspecified; N18.3 Chronic kidney disease, stage 3 (moderate)
CPT/HCPCS: 36415; 80069; 82040; 82306; 82565; 82570; 83970; 84156; 84450; 84460; 84520; 85014; 85018; 85025; 85610; 85652; 86140

== ENCOUNTER 2018-06-09 11:09 | Outpatient (RCR) | payer MEDICARE, OTHER, SELFPAY ==
[2018-06-09 12:36] LABS: International Normalized Ratio 1.6; Prothrombin Time (Protime)PT. 19.1 SECONDS (11.7-14.9)
== END 2018-06-20 12:00 | disposition home or self-care (01) ==
LOC: LAB 11:09
PROVIDERS: Family Provider Family Medicine; PCP Family Medicine; Visit Provider Internal Medicine Cardiovascular Disease
DX: I48.91 Unspecified atrial fibrillation (principal); I97.89 Other postprocedural complications and disorders of the circulatory system, not elsewhere classified
CPT/HCPCS: 36415; 85610

== ENCOUNTER 2018-06-26 18:25 | Emergency (ER) | payer MEDICARE, OTHER, SELFPAY ==
[2018-06-26 18:26] VITALS: BP 120/87; PULSE 141; RESP 18; TEMP 36.6; O2SAT 97; BMI 43.0
--- NOTE | 2018-06-26 18:45 | EKG12_ITS ---
Test Reason : REPEAT Blood Pressure : / mmHG Vent. Rate : 082 BPM Atrial Rate : 300 BPM P-R Int : 000 ms QRS Dur : 084 ms QT Int : 362 ms P-R-T Axes : 000 -01 109 degrees QTc Int : 422 ms Atrial fibrillation Septal infarct , age undetermined T wave abnormality, consider lateral ischemia Abnormal ECG Confirmed by JR JORDAN, RAMONA ([id number]), editor magazine DIANE NAVARRETE ([id number]) on 06/29/2018 1:35:24 PM Referred By: KAILASH VERGARA Confirmed By:RAMONA NORRIS MD
[2018-06-26 18:47] VITALS: O2SAT 97
--- NOTE | 2018-06-26 18:55 | RAD_ITS ---
STUDY: X-RAY CHEST REASON FOR EXAM: Female, 68 years old. Atrial fibrillation TECHNIQUE: A single frontal view of the chest was obtained. COMPARISON: April 07, 2018 FINDINGS: The lungs are adequately aerated. There are no focal airspace opacities. There is no demonstrated pleural abnormality. There is mild enlargement of the cardiac silhouette. Sternotomy wires are present. The mediastinum and hilar regions are unremarkable. Normal visualized pulmonary arteries. There is atherosclerotic calcification of the thoracic aorta. There are diffuse degenerative changes of the visualized spine. There are degenerative changes in both shoulders. There is no demonstrated abnormality of the visualized upper abdomen. RAD/Chest 1 View (Portable) IMPRESSION: No acute cardiopulmonary abnormalities. There is stable mild enlargement of the cardiac silhouette without pulmonary edema or pleural effusion. Electronically Signed: Arlene Sargent MD at 19:19 EDT Tel Direct: [phone], Service support ,
[2018-06-26 19:03] LABS: Absolute Lymphocyte Count 2.25 X10^3/ul (0.83-4.51); Absolute Neutrophil Count 6.4 X10^3/uL (2.0-7.7); Basophil# 0.04 X10^3/uL; Basophil% 0.4 % (0-1); Eosinophils% 1.1 % (0-5); Hematocrit 39.3 % (37-47); Hemoglobin 12.5 g/dl (12.0-15.0); Lymphocyte # 2.25 X10^3/ul (4.0); Mean Corp Hgb Conc 31.8 g/gl (32-36); Mean Corpuscular Hgb 30.7 pg (27.0-32.0); Mean Corpuscular Volume 96.6 fL (81-99); Mean Platelet Vol. 10.1 fl (6.2-12.0); Monocyte# 0.57 X10^3/uL; Monocyte% 6.1 % (0-10); Neutrophil # 6.41 X10^3/uL (2.7-7.7); Neutrophil % 68.2 % (47-70); Platelet Count 202 K/mm3 (150-450); RBC Distribution Width CV 16.2 % (11.6-14.6); RBC Distribution Width SD 55.4 fl (35.1-43.9); Red Blood Count 4.07 M/mm3 (4.2-5.4); White Blood Count 9.4 K/mm3 (4.4-11.0)
[2018-06-26 19:04] LABS: POSITIVE COUNT NO; POSITIVE DIFFERENTIAL NO; POSITIVE MORPHOLOGY NO
[2018-06-26 19:08] LABS: International Normalized Ratio 1.8; Prothrombin Time (Protime)PT. 21.1 SECONDS (11.7-14.9)
[2018-06-26 19:12] LABS: Anion Gap 8 (5-15); BUN 22 mg/dL (7-18); BUN/Creat Ratio 15.9 RATIO (10-20); Calcium,Total 8.9 mg/dL (8.5-10.1); Chloride 102 mmol/L (98-107); Creatinine, Serum 1.38 mg/dL (0.55-1.02); EST Glomerular Filtration Rate 41 mL/min (>60); Est Glom Filt Rate - Afr Amer 49 mL/min (>60); Estimated Creatinine Clearance 56.37 ml/min; Glucose 132 mg/dL (74-106); Potassium 3.9 mmol/L (3.5-5.1); Sodium Level 139 mmol/L (136-145)
--- NOTE | 2018-06-26 19:18 | ED.DCSUM_ITS ---
- ER Visit Summary Date of Service: 06/26/18 Chief Complaint: Accelerated heart rate History of Present Illness: The patient is a 68 F known history of A. fib, diet- controlled diabetes and prior aortic valve replaced with a bovine valve. Also renal insufficiency. Patient states at 6 PM tonight she had accelerated heart rate. Denies any chest pain. Physical Examination: Well-appearing older female. Vital signs are stable except for heart rate 141. Obviously A. fib RVR on the monitor. H EENT exam unremarkable. Neck nontender. Lungs clear to auscultation bilaterally. Heart irregularly irregular rate of 140s. Abdomen soft and nontender. Normal bowel sounds no peritoneal signs. Moving all 4 extremities. Calves nontender without edema. Neurologically she is awake and alert. Test Results: Chest x-ray portable one view no acute process. Borderline cardiomegaly. Read both by myself and the radiologist. CBC normal. White count 9. Hemoglobin 12. Chemistries unremarkable. Gap of 8. Creatinine 1.38 with a history of renal insufficiency. INR 1.8. Troponin less than 0.015. EKG A. fib RVR rate of 149 initially. A repeat EKG was done after IV Cardizem and showed A. fib rate of 82. No signs of [place]. Emergency Department Course and Treatment: Pt. with A. fib RVR. Will be started on IV Cardizem. Cardizem. She has cardioverted spontaneously to a sinus rhythm. Currently her rate is in the 80s. At 2130. She is been in a sinus rhythm for an hour. Has no complaints. Wants to be discharged home. Treatment Plan: I spoke with Dr. Villalobos of cardiology. He and I and the patient all chondral with her being discharged home. She will follow-up with the office tomorrow. Disposition: Discharge Impression: Recurrent atrial fibrillation with RVR Anticoagulated on Coumadin History of prior bovine aortic valve replacement This note was generated with [employer] dictation software. It may contain incorrect words, spelling, and punctuation that were not noted in review of the chart prior to signing ED Disposition - Plan for ED Patient: Chief Complaint: Palpitations Referrals: Bird Garza MD [Primary Care Provider] -
[2018-06-26] MEDS: dilTIAZem 25 MG/5 ML Vial 20 MG IV BOLUS ×2 (19:40→20:31)
[2018-06-26 20:22] VITALS: BP 126/83; PULSE 129; RESP 23; O2SAT 97
--- NOTE | 2018-06-26 20:37 | EKG12_ITS ---
Test Reason : PALPITATIONS Blood Pressure : / mmHG Vent. Rate : 149 BPM Atrial Rate : 150 BPM P-R Int : 000 ms QRS Dur : 098 ms QT Int : 300 ms P-R-T Axes : 000 -21 117 degrees QTc Int : 472 ms Atrial fibrillation with rapid ventricular response Septal infarct , age undetermined ST & T wave abnormality, consider lateral ischemia Abnormal ECG Confirmed by PETRA JORDAN, PRESTON ([id number]), continuity editor DIANE NAVARRETE ([id number]) on 07/03/2018 3:48:28 PM Referred By: KAILASH VERGARA Confirmed By:PRESTON LAMBERT MD
[2018-06-26 21:02] VITALS: BP 128/70; PULSE 69; RESP 19; O2SAT 97
--- NOTE | 2018-06-26 21:44 | DCINST.ED_ITS ---
ED Disposition - Plan for ED Patient: Disposition: Home or Assisted Living Chief Complaint: Palpitations Instructions: ED Afib Referrals: Taz Agee MD [STAFF PHYSICIAN] - 1 Day Additional Instructions: Continue current medications. Follow-up with your [facility] station manager office tomorrow. Return if worse.
[2018-06-26 21:54] VITALS: BP 133/67; PULSE 70; RESP 16; O2SAT 96
== END 2018-06-26 21:54 | disposition home or self-care (01) ==
PROVIDERS: Emergency Provider Emergency Medicine; Family Provider Family Medicine; PCP Family Medicine
DX: I48.2 Chronic atrial fibrillation (principal); Z79.01 Long term (current)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; Z95.2 Presence of prosthetic heart valve; I12.9 Hypertensive chronic kidney disease with stage 1 through stage 4 chronic kidney disease, or unspecified chronic kidney disease; N18.3 Chronic kidney disease, stage 3 (moderate); E11.9 Type 2 diabetes mellitus without complications; Z79.82 Long term (current) use of aspirin; Z79.899 Other long term (current) drug therapy
CPT/HCPCS: 71045; 80048; 84484; 85025; 85610; 93005; 96374; 96376; 99285; A4216

== ENCOUNTER 2018-07-14 12:23 | Outpatient (RCR) | payer MEDICARE, OTHER, SELFPAY ==
[2018-06-20 13:29] LABS: International Normalized Ratio 1.5; Prothrombin Time (Protime)PT. 18.1 SECONDS (11.7-14.9)
[2018-07-04 13:21] LABS: International Normalized Ratio 1.8; Prothrombin Time (Protime)PT. 20.8 SECONDS (11.7-14.9)
[2018-07-14 13:35] LABS: International Normalized Ratio 1.9
== END 2018-07-14 14:00 | disposition home or self-care (01) ==
LOC: LAB 12:23
PROVIDERS: Family Provider Family Medicine; PCP Family Medicine; Visit Provider Internal Medicine Cardiovascular Disease
DX: I48.91 Unspecified atrial fibrillation (principal); I97.89 Other postprocedural complications and disorders of the circulatory system, not elsewhere classified
CPT/HCPCS: 36415; 85610

== ENCOUNTER 2018-08-08 12:16 | Outpatient (RCR) | payer MEDICARE, OTHER, SELFPAY ==
[2018-07-25 12:37] LABS: International Normalized Ratio 2.1; Prothrombin Time (Protime)PT. 23.8 SECONDS (11.7-14.9)
[2018-08-08 13:35] LABS: International Normalized Ratio 1.9; Prothrombin Time (Protime)PT. 21.4 SECONDS (11.7-14.9)
== END 2018-08-18 10:12 | disposition home or self-care (01) ==
LOC: LAB 12:16
PROVIDERS: Family Provider Family Medicine; PCP Family Medicine; Visit Provider Internal Medicine Cardiovascular Disease
DX: I48.91 Unspecified atrial fibrillation (principal); I97.89 Other postprocedural complications and disorders of the circulatory system, not elsewhere classified
CPT/HCPCS: 36415; 85610

== ENCOUNTER 2018-08-22 10:43 | Outpatient (RCR) | payer MEDICARE, OTHER, SELFPAY ==
[2018-08-21 10:13] VITALS: BMI 48.9
[2018-08-22 11:44] LABS: International Normalized Ratio 2.5; Prothrombin Time (Protime)PT. 26.9 SECONDS (11.7-14.9)
== END 2018-08-22 11:00 | disposition home or self-care (01) ==
LOC: LAB 10:43
PROVIDERS: Family Provider Family Medicine; PCP Family Medicine; Visit Provider Internal Medicine Cardiovascular Disease
DX: I48.91 Unspecified atrial fibrillation (principal); I97.89 Other postprocedural complications and disorders of the circulatory system, not elsewhere classified
CPT/HCPCS: 36415; 85610

== ENCOUNTER → 2018-09-04 11:04 | Outpatient (CLI) | payer MEDICARE, OTHER, SELFPAY ==
[2018-08-21 10:13] VITALS: BMI 48.9
[2018-09-04 11:58] LABS: Microalbumin,Random Urine 44.5 mg/L (NO RANGE EST.); Microalbumin:Creatinine Ratio 16.2 mg/g CRE (<30 mg/g CRE)
[2018-09-04 12:06] LABS: AST(SGOT) 22 U/L (15-37); Alanine Aminotransfer ALT/SGPT 22 U/L (13-56); Albumin, Serum 3.6 g/dL (3.2-5.0); Alkaline Phosphatase 72 U/L (45-117); Anion Gap 9 (5-15); BUN 19 mg/dL (7-18); BUN/Creat Ratio 18.3 RATIO (10-20); Bilirubin, Direct 0.12 mg/dL (0.00-0.30); Calcium,Total 8.8 mg/dL (8.5-10.1); Chloride 105 mmol/L (98-107); Cholesterol 156 mg/dL (200); Creatinine, Serum 1.04 mg/dL (0.55-1.02); EST Glomerular Filtration Rate 56 mL/min (>60); Est Glom Filt Rate - Afr Amer 68 mL/min (>60); Free T3 2.3 pg/mL (2.18-3.98); Globulin 3.5 g/dL (2.2-4.2); Glucose 86 mg/dL (74-106); High Density Lipoprotein 59 mg/dL; Potassium 4.3 mmol/L (3.5-5.1); Protein, Total 7.1 g/dL (6.4-8.2); Sodium Level 145 mmol/L (136-145); T4 Total, Thyroxin 10.8 ug/dL (4.8-13.9); Thyroid Stim Hormone (TSH) 2.78 uIU/mL (0.358-3.74); Triglycerides 104 mg/dL; Very Low Density Lipoprotein 21 mg/dL (5-40)
--- OUTSIDE RECORDS SUMMARY | 2018-12-07 00:22 | XMS RPT_ITS ---
:1950 Author Organization [place] Support Name Relationship Address Phone LORI BRITO Unavailable [address] + [place] [address] R Unavailable Unavailable Unavailable ERIKA, YAMILET Unavailable Unavailable + [place] [address] LORI BRITO Unavailable [address] + [place] [address] R Unavailable Unavailable Unavailable ERIKA, YAMILET Unavailable Unavailable + [place] [address] LORI BRITO Unavailable [address] + [place] [address] R Unavailable Unavailable Unavailable ERIKA, YAMILET Unavailable Unavailable + [place] [address] LORI BRITO Unavailable [address] + [place] [address] R Unavailable Unavailable Unavailable ERIKA, YAMILET Unavailable Unavailable + [place] [address] LORI BRITO Unavailable [address] + [place] [address] R Unavailable Unavailable Unavailable ERIKA, YAMILET Unavailable Unavailable + [place] [address] LORI BRITO Unavailable [address] + [place] [address] R Unavailable Unavailable Unavailable ERIKA, YAMILET Unavailable Unavailable + [place] [address] LORI BRITO Unavailable [address] + [place] [address] R Unavailable Unavailable Unavailable ERIKA, YAMILET Unavailable Unavailable + [place] [address] LORI BRITO Unavailable [address] + [place] [address] R Unavailable Unavailable Unavailable ERIKA, YAMILET Unavailable Unavailable + [place] [address] BRITO, LORI Unavailable [address] + [place] [address] R Unavailable Unavailable Unavailable ERIKA, YAMILET Unavailable Unavailable + [place] [address] BRITO, LORI Unavailable [address] + [place] [address] R Unavailable Unavailable Unavailable ERIKA, YAMILET Unavailable Unavailable + [place] [address] BRITO, LORI Unavailable [address] + [place] [address] R Unavailable Unavailable Unavailable ERIKA, YAMILET Unavailable Unavailable + [place] [address] BRITO, LORI Unavailable [address] + [place] [address] R Unavailable Unavailable Unavailable ERIKA, YAMILET Unavailable Unavailable + [place] [address] BRITO, LORI Unavailable [address] + [place] [address] R Unavailable Unavailable Unavailable ERIKA, YAMILET Unavailable Unavailable + [place] [address] BRITO, LORI Unavailable [address] + [place] [address] R Unavailable Unavailable Unavailable ERIKA, YAMILET Unavailable Unavailable + [place] [address] LORI BRITO Unavailable [address] + [place] [address] R Unavailable Unavailable Unavailable ERIKA, YAMILET Unavailable Unavailable + [facility] [address] BRITO, LORI Unavailable [address] + [place] [address] R Unavailable Unavailable Unavailable ERIKA, YAMILET Unavailable Unavailable + [place] [address] LORI BRITO Unavailable [address] + [place] [address] R Unavailable Unavailable Unavailable ERIKA, YAMILET Unavailable Unavailable + [facility] [address] LORI BRITO Unavailable [address] + [place] [address] R Unavailable Unavailable Unavailable ERIKA, YAMILET Unavailable Unavailable + [place] [address] LORI BRITO Unavailable [address] + [place] [address] R Unavailable Unavailable Unavailable ERIKA, YAMILET Unavailable Unavailable + [place] [address] LORI BRITO Unavailable [address] + [place] [address] R Unavailable Unavailable Unavailable ERIKA, YAMILET Unavailable . + [place] [address] BRITO, LORI Unavailable [address] + [place] [address] R Unavailable Unavailable Unavailable ERIKA, YAMILET Unavailable . + [place] [address] BRITO, LORI Unavailable [address] + [place] [address] R Unavailable Unavailable Unavailable ERIKA, YAMILET Unavailable Unavailable + [place] [address] BRITO, LORI Unavailable [address] + [place] [address] R Unavailable Unavailable Unavailable ERIKA, YAMILET Unavailable . + [place] [address] BRITOLORI Unavailable [address] + [place] [address] R Unavailable Unavailable Unavailable ERIKA, YAMILET Unavailable Unavailable + [place] [address] BRITO LORI Unavailable [address] + [place] [address] R Unavailable Unavailable Unavailable ERIKA, YAMILET Unavailable . + [place] [address] LORI BRITO Unavailable [address] + [place] [address] R Unavailable Unavailable Unavailable ERIKA, YAMILET Unavailable . + [place] [address] BRITO LORI Unavailable [address] + [place] [address] R Unavailable Unavailable Unavailable ERIKA, YAMILET Unavailable . + [place] [address] LORI BRITO Unavailable [address] + [place] [address] R Unavailable Unavailable Unavailable ERIKA, YAMILET Unavailable Unavailable + [place] [address] LORI BRITO Unavailable [address] + [place] [address] R Unavailable Unavailable Unavailable ERIKA, YAMILET Unavailable . + [place] [address] LORI BRITO Unavailable [address] + [place] [address] R Unavailable Unavailable Unavailable ERIKA, YAMILET Unavailable Unavailable + [place] [address] LORI BRITO Unavailable [address] + [place] [address] R Unavailable Unavailable Unavailable ERIKA, YAMILET Unavailable Unavailable + [place] [address] LORI BRITO Unavailable [address] + [place] [address] R Unavailable Unavailable Unavailable ERIKA, YAMILET Unavailable Unavailable + [place] [address] LORI BRITO Unavailable [address] + [place] [address] R Unavailable Unavailable Unavailable ERIKA, YAMILTE Unavailable Unavailable + [facility] [place] [address] LORI BRITO Unavailable [address] + [place] [address] R Unavailable Unavailable Unavailable ERIKA, YAMILET Unavailable Unavailable + [place] [address] LORI BRITO Unavailable [address] + [place] [address] R Unavailable Unavailable Unavailable ERIKA, YAMILET Unavailable . + [place] [address] LORI BRITO Unavailable [address] + [place] [address] R Unavailable Unavailable Unavailable ERIKA, YAMILET Unavailable . + [place] [address] LORI BRITO Unavailable [address] + [place] [address] R Unavailable Unavailable Unavailable ERIKA, YAMILET Unavailable . + [place] [address] LORI BRITO Unavailable [address] + [place] [address] R Unavailable Unavailable Unavailable ERIKA, YAMILET Unavailable . + [place] [address] LORI BRITO Unavailable [address] + [place] [address] R Unavailable Unavailable Unavailable ERIKA, YAMILET Unavailable Unavailable + [place] [address] LORI BRITO Unavailable [address] + [place] [address] R Unavailable Unavailable Unavailable ERIKA, YAMILET Unavailable Unavailable + [place] [address] LORI BRITO Unavailable [address] + [place] [address] R Unavailable Unavailable Unavailable ERIKA, YAMILET Unavailable Unavailable + [place] [address] LORI BRITO Unavailable [address] + [place] [address] R Unavailable Unavailable Unavailable ERIKA, YAMILET Unavailable Unavailable + [place] [address] LORI BRITO Unavailable [address] + [place] [address] R Unavailable Unavailable Unavailable YELENA LORI Unavailable [address] + [place] [address] R Unavailable Unavailable Unavailable BRITO LORI Unavailable [address] + [place] [address] R Unavailable Unavailable Unavailable BRITO LORI Unavailable [address] + [place] [address] R Unavailable Unavailable Unavailable BRITO LORI Unavailable [address] + [place] [address] R Unavailable Unavailable Unavailable CHIRAG BRITO Unavailable [address] + [place] [address] R Unavailable Unavailable Unavailable YELENA CHIRAG Unavailable [address] + [place] [address] R Unavailable Unavailable Unavailable CHIRAG BRITO Unavailable [address] + [place] [address] R Unavailable Unavailable Unavailable BRITO, CHIRAG Unavailable [address] + [place] [address] R Unavailable Unavailable Unavailable BRITO, CHIRAG Unavailable [address] + [place] [address] R Unavailable Unavailable Unavailable YELENA LORI Unavailable [address] + [place] [address] R Unavailable Unavailable Unavailable BRITO, CHIRAG Unavailable [address] + [place] [address] R Unavailable Unavailable Unavailable BRITO LORI Unavailable [address] + [place] [address] R Unavailable Unavailable Unavailable BRITO, CHIRAG Unavailable [address] + [place] [address] R Unavailable Unavailable Unavailable BRITO [place] Unavailable NA + [place], [place] R Unavailable Unavailable Unavailable Care Team Providers Name Role Phone LUKE LESTER Attending Unavailable TAZ ALLEN Referring Unavailable LUKE LESTER Referring Unavailable KEELEYHORRALUKE Referring Unavailable LAHORRALUKE Referring Unavailable LACOCORRLUKE Goldberg Referring Unavailable LACOCORRYusuf, LUKE Goldberg Admitting Unavailable LUKE LESTER Attending Unavailable LUKE LESTER Referring Unavailable HEAVEN BENZ Consulting Unavailable NAHED MACHADO ([facility]) Attending Unavailable BIRD GARZA Referring Unavailable NAHED MACHADO ([facility]OM ATTENDANT) Referring Unavailable NAHED MACHADO ([facility]OM ATTENDANT) Referring Unavailable SOPHIE ROBERSON ([facility]) Attending Unavailable BIRD GARZA Referring Unavailable HARPER HERNANDEZ Attending Unavailable TAZ ALLEN Referring Unavailable Taz Allen Attending Unavailable Ute Villasenor Referring Unavailable Taz Allen Attending Unavailable Taz Allen Referring Unavailable Bird Garza Attending Unavailable GarzaBird sidhu Referring Unavailable Garza, Bird Primary Care Unavailable Kayla, Bird Primary Care Unavailable Ayush Haines Attending Unavailable Taz Allen Attending Unavailable MOUNA HAM Referring Unavailable Garza, Bird Primary Care Unavailable MOUNA HAM Consulting Unavailable Julissa Balbuena Attending Unavailable Bird Garza Referring Unavailable Dannielle Stewart Attending Unavailable Bird Garza Referring Unavailable Angel Villalobos Attending Unavailable Angel Villalobos Referring Unavailable Garza, Bird Primary Care Unavailable Julissa Balbuena Attending Unavailable Julissa Balbuena Referring Unavailable Garza, Bird Primary Care Unavailable Wilfredo, Angel Attending Unavailable Wilfredo, Angel Referring Unavailable Garza, Bird Primary Care Unavailable Harper Fuller Attending Unavailable Julissa Bal[place] Referring Unavailable Garza, Bird Primary Care Unavailable Julissa [place] Consulting Unavailable Wilfredo, Angel Attending Unavailable Wilfredo, Angel Referring Unavailable Garza, Bird Primary Care Unavailable Wilfredo, [place] Consulting Unavailable Taz Allen Attending Unavailable Garza, Bird Referring Unavailable Garza, Bird Primary Care Unavailable Taz Allen Attending Unavailable Garza, Bird Referring Unavailable Taz Allen Attending Unavailable ANTONIO ALLEN Referring Unavailable Garza, Bird Primary Care Unavailable , MOUNA Attending Unavailable , MOUNA Referring Unavailable Garza, Bird Primary Care Unavailable Taz Allen Attending Unavailable Taz Allen Referring Unavailable Tessy Castillo Attending Unavailable Jose Enrique Macdonald Attending Unavailable Garza, Bird Referring Unavailable Garza, Bird Primary Care Unavailable Taz Allen Attending Unavailable Taz Allen Referring Unavailable Garza, Bird Primary Care Unavailable Jocelyn Gonzalez Attending Unavailable RoofJose Enrique H Attending Unavailable RoofJose Enrique H Referring Unavailable Garza, Bird Primary Care Unavailable Taz Allen Attending Unavailable Taz Allen Referring Unavailable Garza, Bird Primary Care Unavailable Garza, Bird Primary Care Unavailable Anoop Nath Attending Unavailable Taz Allen Attending Unavailable Garza, Bird Primary Care Unavailable Taz Allen Attending Unavailable Garza, Bird Primary Care Unavailable Taz Allen Attending Unavailable Garza, Bird Referring Unavailable Garza, Bird Primary Care Unavailable Taz Allen Attending Unavailable Garza, Bird Primary Care Unavailable Taz Allen Referring Unavailable Taz Allen Attending Unavailable Taz Allen Referring Unavailable Garza, Bird Primary Care Unavailable Taz Allen Attending Unavailable Taz Allen Referring Unavailable Garza, Bird Primary Care Unavailable Juan Carlos Wolff Attending Unavailable Taz Allen Attending Unavailable Taz Allen Referring Unavailable Garza, Bird Primary Care Unavailable aTz Allen Attending Unavailable Taz Allen Referring Unavailable Garza, Bird Primary Care Unavailable Taz Allen Attending Unavailable Garza, Bird Referring Unavailable Garza, Bird Primary Care Unavailable Taz Allen Attending Unavailable Taz Allen Referring Unavailable Garza, Bird Primary Care Unavailable Taz Allen Attending Unavailable Taz Allen Referring Unavailable Garza, Bird Primary Care Unavailable Taz Allen Attending Unavailable Garza, Bird Referring Unavailable Garza, Bird Primary Care Unavailable Taz Allen Attending Unavailable Taz Allen Referring Unavailable Garza, Bird Primary Care Unavailable Garza, Bird Attending Unavailable Garza, Bird Referring Unavailable Garza, Bird Primary Care Unavailable Jocelyn Gonzalez Attending Unavailable Roof, Jose Enrique H Attending Unavailable Roof, Jose Enrique H Referring Unavailable Garza, Bird Primary Care Unavailable Julissa [place] Consulting Unavailable Julissa Balbuena Attending Unavailable Garza, Bird Referring Unavailable Garza, Bird Primary Care Unavailable Roof, Jose Enrique H Attending Unavailable Garza, Bird Referring Unavailable Garza, Bird Primary Care Unavailable Taz Allen Attending Unavailable Taz Allen Referring Unavailable Garza, Bird Primary Care Unavailable Roof, Jose Enrique H Attending Unavailable Roof, Jose Enrique H Referring Unavailable Garza, Bird Primary Care Unavailable Alejandro, Taz Attending Unavailable Garza, Bird Primary Care Unavailable MOUNA HAM Consulting Unavailable MOUNA HAM Referring Unavailable Angel Villalobos Attending Unavailable Taz Allen Attending Unavailable Garza, Bird Referring Unavailable MoodisBird umana Attending Unavailable Taz Allen Referring Unavailable Taz Allen Attending Unavailable MOUNA HAM Referring Unavailable Garza, Bird Primary Care Unavailable MOUNA HAM Consulting Unavailable Taz Allen Attending Unavailable Roof, Jose Enrique H Referring Unavailable Taz Allen Attending Unavailable MOUNA HAM Referring Unavailable Garza, Bird Primary Care Unavailable MOUNA HAM Consulting Unavailable Garza, Bird Primary Care Unavailable Darin Ramirez Attending Unavailable Roof, Jose Enrique H Attending Unavailable Garza, Bird Referring Unavailable Roof, Jose Enrique H Attending Unavailable Roof, Jose Enrique H Referring Unavailable Garza, Bird Primary Care Unavailable Taz Allen Attending Unavailable MOUNA HAM Referring Unavailable Garza, Bird Primary Care Unavailable MOUNA HAM Consulting Unavailable Taz Allen Attending Unavailable MOUNA HAM Referring Unavailable Garza, Bird Primary Care Unavailable MOUNA HAM Consulting Unavailable LUKE LESTER Attending Unavailable TAZ ALLEN Referring Unavailable YVETTE, BIRD Primary Care Unavailable LAHORRA, LUKE A Referring Unavailable YVETTE, BIRD Primary Care Unavailable LAHORRA, LUKE A Admitting Unavailable LAHORRA, LUKE A Attending Unavailable YVETTE, BIRD Primary Care Unavailable LAHORRA, LUKE A Referring Unavailable BAIRON CAMACHO Consulting Unavailable MD HEAVEN BENZ Consulting Unavailable LAHORRA, LUKE A Referring Unavailable YVETTE, BIRD Primary Care Unavailable LAHORRA, LUKE A Referring Unavailable YVETTE, BIRD Primary Care Unavailable LAHORRA, LUKE A Referring Unavailable YVETTE, BIRD Primary Care Unavailable YVETTE, BIRD Primary Care Unavailable YVETTE, BIRD Primary Care Unavailable LAHORRA, LUKE A Referring Unavailable YVETTE, BIRD Primary Care Unavailable LAHORRA, LUKE A Referring Unavailable YVETTE, BIRD Primary Care Unavailable LAHORRA, LUKE A Referring Unavailable YVETTE, BIRD Primary Care Unavailable NAHED MACHADO Attending Unavailable YVETTE, BIRD Referring Unavailable YVETTE, BIRD Primary Care Unavailable MODEVANTE, NAHED E Referring Unavailable YVETTE, BIRD Primary Care Unavailable CARMEL ROBERSON Attending Unavailable YVETTE, BIRD Referring Unavailable YVETTE, BIRD Primary Care Unavailable MODEVANTE, NAHED E Referring Unavailable YVETTE, BIRD Primary Care Unavailable HARPER HERNANDEZ Attending Unavailable TAZ ALLEN Referring Unavailable YVETTE, BIRD Primary Care Unavailable PROBLEMS PROBLEMS DATE TYPE CONDITION / CODE ATTENDING STATUS SOURCE Unknown R09.89 - Other Harper Fuller Active [place] 9 specified symptoms and Community signs involving the Hospital circulatory and Repository respiratory systems / R09.89(ICD-10) Unknown I48.0 - Paroxysmal Dannielle Stewart Active [place] 9 atrial fibrillation / Community I48.0(ICD-10) Hospital Repository Unknown I49.8 - Other Dannilele Stewart Active [place] 9 specified cardiac Community arrhythmias / Hospital I49.8(ICD-10) Repository Unknown I49.5 - Sick sinus Dannielle Stewart Active [place] 9 syndrome / Community I49.5(ICD-10) Hospital Repository Unknown 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 [facility] Other / Z79.01(ICD-10) [place] Repository Active Encounter for SCHWEIKERT, Active [place] 8 therapeutic drug level [facility] Other monitoring / [place] Z51.81(ICD-10) Repository Active Other specified SCHWEIKERT, Active [place] 8 personal risk factors, [facility] Other not elsewhere [place] classified / Repository Z91.89(ICD-10) Active Presence of prosthetic SCHWEIKERT, Active [place] 8 heart valve / [facility] Other Z95.2(ICD-10) [place] Repository Active Nonrheumatic aortic SCHWEIKERT, Active [place] 8 (valve) stenosis / [facility] Other I35.0(ICD-10) [place] Repository Active Paroxysmal atrial SCHWEIKERT, Active [place] 8 fibrillation / [facility] Other I48.0(ICD-10) [place] Repository Active Palpitations / SCHWEIKERT, Active [place] 8 R00.2(ICD-10) [facility] Other [place] Repository Active Other forms of dyspnea SCHWEIKERT, Active [place] 8 / R06.09(ICD-10) [facility] Other [place] Repository Admitting Unknown / UNK(Unknown) SCHWEIKERT, Active [facility] 8 diagnosis [facility] Repository Unknown I48.91 - Unspecified Taz Allen Active [place] 8 atrial fibrillation / Community I48.91(ICD-10) Hospital Repository Unknown I97.89 - Other Jose Enrique Macdonald Active [place] 8 postprocedural Community complications and Hospital disorders of the Repository circulatory system, not elsewhere classified / I97.89(ICD-10) Unknown R00.2 - Palpitations / Balbuena, Active [place] 8 R00.2(ICD-10) Julissa [facility] Repository Unknown Z87.39 - Personal Joes Enrique Macdonald Active [place] 8 history of other Community diseases of the Hospital musculoskeletal system Repository and connective tissue / Z87.39(ICD-10) Unknown D64.9 - Anemia, Roof, Jose Enrique H Active [place] 8 unspecified / Community D64.9(ICD-10) Hospital Repository Unknown R06.00 - Dyspnea, Moodispaw, Active [place] 8 unspecified / [facility] R06.00(ICD-10) Hospital Repository Unknown R94.31 - Abnormal Moodispaw, Active [place] 8 electrocardiogram [facility] [ECG] [EKG] / Hospital R94.31(ICD-10) Repository Unknown 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 / Hospital I27.21(ICD-10) Repository Unknown I35.0 - Nonrheumatic Taz Allen Active [place] 8 aortic (valve) Community stenosis / Hospital I35.0(ICD-10) Repository Unknown R06.02 - Shortness of Wilfredo, [place] Active [place] 8 breath / Community R06.02(ICD-10) Hospital Repository Unknown G47.33 - Obstructive Taz Allen Active [place] 8 sleep apnea (adult) Community (pediatric) / Hospital G47.33(ICD-10) Repository Active Pleural effusion, not DA, WEINA Active [place] [facility] elsewhere classified / ([facility]) Clinic Other J90(ICD-10) [place] Repository Unknown E78.00 - Pure Alejandro Taz Active [place] 8 hypercholesterolemia, Community unspecified / Hospital E78.00(ICD-10) Repository Active Dependence on other LAHORRA, Active [place] 8 enabling machines and [facility] Other devices / [place] Z99.89(ICD-10) Repository Active Central sleep apnea in LAHORRA, Active [place] 8 conditions classified [place] [facility] Other elsewhere / [place] G47.37(ICD-10) Repository Active Secondary pulmonary LAHORRA, Active [place] 8 arterial hypertension [place] [facility] Other / I27.21(ICD-10) [place] Repository Active Hypoxemia / LAHORRA, Active [place] 8 R09.02(ICD-10) [facility] Clinic Other [place] Repository Active Essential (primary) LAHORRA, Active [place] 8 hypertension / [facility] Clinic Other I10(ICD-10) [place] Repository Active Shock, unspecified / LAHORRA, Active [place] 8 R57.9(ICD-10) [facility] Other [place] Repository Active Type 2 diabetes NA [facility] 8 mellitus without Clinic Other complications / [place] E11.9(ICD-10) Repository Active Hyperlipidemia, NA [facility] 8 unspecified / Clinic Other E78.5(ICD-10) [place] Repository Active Unspecified symptoms NA [facility] 8 and signs involving Clinic Other the genitourinary [place] system / R39.9(ICD-10) Repository Active Encounter for other NA [facility] 8 preprocedural Clinic Other examination / [place] Z01.818(ICD-10) Repository Active Obstructive sleep NA [facility] 8 apnea (adult) Clinic Other (pediatric) / [place] G47.33(ICD-10) Repository Unknown M06.9 - Rheumatoid MOUNA HAM [facility] 8 arthritis, unspecified Community / M06.9(ICD-10) Hospital Repository Active Encounter for LAHORRA, Active [place] 8 screening for other [facility] Other disorder / [place] Z13.89(ICD-10) Repository Unknown R06.81 - Apnea, not Taz Allen Active [place] 8 elsewhere classified / Community R06.81(ICD-10) Hospital Repository Unknown E66.9 - Obesity, Taz Allen Active [place] 8 unspecified / Community E66.9(ICD-10) Hospital Repository PROCEDURES PROCEDURES No Procedure Records FoundRESULTS RESULTS DISCHARGE INSTRUCTION Observed: 10/10/2018 Status: F Source: [place] 8:22 AM [facility] REPOSITORY [facility] Medical Records Department [address] [place] [address] Instructions for Home/Discharge Instructions 10/10/18817 MR#: [id number] Acct: [id number] Name: GRACIELA BRITO Rep #: [id number] : 1950 68 From: Angel Villalobos MD PCP: Bird Garza MD Status: [facility] Discharge Diet: No Restrictions Discharge Activity: May Not Drive May resume sexual activity in: 2 weeks Call your doctor if your incision/area has: Continuous Slow Oozing, Sudden Increased Bleeding, Increased Pain/ Swelling, Increased Redness, Foul Smelling Discharge, Swelling at the incision site Call your doctor if you observe: Fever of 101 or Higher, Shortness of breath, Dizziness, Fainting spells, Swelling in the ankles, Chest pain, Prolonged hiccoughing, Increased palpitations (irregular heartbeat) Change Dressing in (Days):: 3 Remove Dressing in (days):: 3 Cleanse incision/area with: Keep Dressing Clean AND Dry Additional Dressing/Incision Instructions:: When dressing is removed, wash and dry incision. Keep covered with a light bandage if it is rubbing against your clothing. Do not cover the incision with an airtight bandage. Change the bandage daily. Do not remove steri strips. The strips will fall off on their own. Additional Instructions: Signs and Symptoms to Report to Your Doctor at Once - call your doctor's office or Doctor's Registry ([phone]) Call 911 or go to the nearest Emergency Department if you feel you need urgent care. *Infection (fever, increased redness or swelling at the incision site, drainage from the incision increased pain at the pacemaker site) *Shortness of breath *Dizziness *Fainting spells *Swelling in the ankles *Chest pain *Prolonged hiccoughing *Increased palpitaitons (irregular heartbeat) Medications: Take your pain medication as directed. Refer to your discharge instruction sheet for a list of medications you are to take. Allergies/Adverse Reactions: Allergies amiodarone Allergy (Unknown, Verified 09/25/18 11:16) Unknown ciprofloxacin HCl [From Cipro] Allergy (Verified 09/25/18 11:16) Unknown insulin glargine, human recombin. a [From Lantus] Allergy (Verified 09/25/18 11:16) Unknown iodine Allergy (Verified 09/25/18 11:16) Hives prednisone Adverse Reaction (Severe, Verified 09/25/18 11:16) Visual changes, glaucoma diltiazem Adverse Reaction (Mild, Verified 09/25/18 11:16) Dizziness benjamin Adverse Reaction (Severe, Uncoded 09/07/18 23:33) Neck pain AND tingling Medications to take at Discharge Aspirin E.C. [Ecotrin] 81 mg PO DAILY@0800 09/21/16 Hydroxychloroquine [Plaquenil] 400 mg PO DAILY 09/21/16 Levothyroxine Sodium 50 mcg PO DAILY 09/21/16 Clonazepam [Klonopin] 1 mg PO QHS 07/18/17 Sertraline HCl [Zoloft] 50 mg PO DAILY 07/18/17 atorvastatin 10 mg tablet 10 mg PO QHS tab 12/12/17 magnesium oxide 400 mg (241.3 mg magnesium) tablet 400 mg PO BID #180 tab 03/06/18 ferrous sulfate 324 mg (65 mg iron) tablet,delayed release 324 mg PO BID #60 tab 03/31/18 Diltiazem [Cardizem] 120 mg PO PRN PRN 09/07/18 Methotrexate 20 mg PO Q7D 09/07/18 furosemide 40 mg tablet 40 mg PO DAILY #90 tab 09/11/18 lisinopril 5 mg tablet 5 mg PO DAILY #90 tab 09/11/18 warfarin 5 mg tablet 5 mg PO .COMPLEX #100 tab 09/13/18 calcitriol 0.25 mcg capsule 0.25 mcg PO Q OTHER DAY cap 09/25/18 Primary Care Physician: Bird Garza MD [Primary Care Provider] - Test Results: Test results from this visit will be discussed in further detail at your follow-up appointment, if applicable. When: PACER CLINIC AT 2PM ON 10/16/2018 Proposed Discharge Date: 10/10/18 10/10/18 0822 <Electronically signed by Angel Villalobos MD> Date Angel Villalobos MD CC: Bird Garza MD Signed CHEST PA AND LATERAL Observed: 10/10/2018 Status: F Source: [place] 12:00 AM [facility] REPOSITORY [facility] Imaging Services [address] [place] [address] Chest PA and Lateral MR#: [id number] Acct: [id number] Name: BRITOGRACIELA Yusuf Rep #: [id number] : 1950 F 68 From: Peter Morillo MD PCP: Bird Garza MD Status: REG [facility] Study: Chest PA and Lateral Date of Exam: 10/10/18 Exam# [id number] Ordering Dr: Angel Villalobos MD STUDY: X-RAY CHEST REASON FOR EXAM: Female, 68 years old. Pacemaker insertion. TECHNIQUE: AP and lateral views of the chest. COMPARISON: Comparison is made with prior study dated September 08, 2018. FINDINGS: A left-sided dual-chamber pacemaker has been placed. There is no evidence of pneumothorax. The lungs are clear and expanded. There is no demonstrated pleural abnormality. Sternal cerclage wires and vascular clips are present from a prior sternotomy and coronary artery bypass graft procedure (CABG). Normal mediastinum and armando. Normal visualized pulmonary arteries. Normal visualized aortic arch and descending thoracic aorta. There are diffuse degenerative changes of the visualized thoracic spine. Normal visualized ribs, clavicles, and shoulders. There is no demonstrated abnormality of the visualized soft tissue structures of the upper abdomen. RAD/Chest PA and Lateral IMPRESSION: A left-sided dual chamber pacemaker has been placed. The leads are in good position. There is no evidence of pneumothorax. Electronically Signed: Peter Morillo MD at 8:14 EST Tel [phone], Service support , CC: Angel Villalobos MD; Bird Garza MD Interventional Pain Physician: Signed PROTIME W/INR Collected: 10/09/2018 Status: F Source: [place] 10:31 AM [facility] REPOSITORY TYPE CODE TESTS RESULT OUT OF REFERENCE UNITS RANGE LAB L9200.1001 11.9-14.4 SEC Low PROTIME ISTAT 11.7 Result Comment: Reference Range 11.9 - 14.4 LAB L9200.2000 Normal INR ISTAT 1.00 Result Comment: Critical Value > 3.5 Performed By: #### L9200.0000 #### [facility] Point of Care [address] [place] [address] CARDIOLOGY VISIT Observed: 10/02/2018 Status: F Source: [place] REPORT 5:06 PM [facility] REPOSITORY [facility] [address] [place] [address] OFFICE VISIT Date of Service: 09/25/18 MR#: [id number] Acct: [id number] Name: GRACIELA BRITO Rep #: [id number] : 1950 Provider: Julissa Balbuena Age/Sex: 68/F Location: [facility] Status: Signed HPI HPI Details: GRACIELA BRITO, is a 68 F who presents to the office today for an updated history and physical for a PPM placement for sick sinus syndrome. She has a history of severe aortic valve stenosis status post AVR with a 21 mm [place] trifecta valve [place] [address] Lester, small aortic root status post aortic root enlargement with autologous pericardium in November 2017, postoperative atrial fibrillation, hyperlipidemia, and sleep apnea with BiPAP therapy. In March 2018 while at cardiac rehab, her electrocardiogram showed junctional rhythm. Because of this, her diltiazem was discontinued. She was seen in the emergency department in June 2018 for increase in palpitations and was found to be in atrial fibrillation with RVR. She was given IV Cardizem and ultimately converted to sinus rhythm. Pt underwent a 30 day event monitor which demonstrated only 1 episode of slow heart rate at 51 bpm (1st degree heart block). With atrial fib intermittently with sinus, rates of 130, 141,147. No VT. Pt remains symptomatic with her Afib. She is not symptomatic with her junctional rhythm that she was noted to have in cardiac rehab. Although yesterday she sts that she was driving and did not that she was dizzy. She did not have any other symptoms with this. She does not have any chest pain/heaviness. She does not have any edema. She was evaluated by EP for consideration of pacemaker versus ablation. It was recommended that patient undergo a pacemaker placement so that she can try medical management prior to going through with an ablation Intake Vital Signs09/25/18 Height 4 ft 9 in 09/25/18 Weight: 209 lb 09/25/18 Body Mass Index (BMI) 45.2 09/25/18 Blood Pressure 118/44 L 09/25/18 Blood Pressure Location Lt brachial Intake Visit Reasons: Update H AND P for PPM / Jess 11:30 Advertising Sales Agent Required: No Accompanied by: None Is patient in pain?: No Allergies amiodarone Allergy (Unknown, Verified 09/25/18 11:16) Unknown ciprofloxacin HCl [From Cipro] Allergy (Verified 09/25/18 11:16) Unknown insulin glargine, human recombin. a [From Lantus] Allergy (Verified 09/25/18 11:16) Unknown iodine Allergy (Verified 09/25/18 11:16) Hives prednisone Adverse Reaction (Severe, Verified 09/25/18 11:16) Visual changes, glaucoma diltiazem Adverse Reaction (Mild, Verified 09/25/18 11:16) Dizziness benjamin Adverse Reaction (Severe, Uncoded 09/07/18 23:33) Neck pain AND tingling Medications Aspirin E.C. [Ecotrin] 81 mg PO DAILY@0800 09/21/16 [History Confirmed 09/28/18] Hydroxychloroquine [Plaquenil] 400 mg PO DAILY 09/21/16 [History Confirmed 09/28/18] Levothyroxine Sodium 50 mcg PO DAILY 09/21/16 [History Confirmed 09/28/18] Clonazepam [Klonopin] 1 mg PO QHS 07/18/17 [History Confirmed 09/28/18] Sertraline HCl [Zoloft] 50 mg PO DAILY 07/18/17 [History Confirmed 09/28/18] atorvastatin 10 mg tablet 10 mg PO QHS tab 12/12/17 [History Confirmed 09/28/18] warfarin 2.5 mg tablet 7.5 mg PO MOTUWETHFRSA 01/09/18 [History Confirmed 09/28/18] magnesium oxide 400 mg (241.3 mg magnesium) tablet 400 mg PO BID #180 tab 03/06/18 [Rx Confirmed 09/28/18] ferrous sulfate 324 mg (65 mg iron) tablet,delayed release 324 mg PO BID #60 tab 03/31/18 [Rx Confirmed 09/28/18] Diltiazem [Cardizem] 120 mg PO PRN PRN 09/07/18 [History Confirmed 09/28/18] Methotrexate 20 mg PO Q7D 09/07/18 [History Confirmed 09/28/18] furosemide 40 mg tablet 40 mg PO DAILY #90 tab 09/11/18 [Rx Confirmed 09/28/18] lisinopril 5 mg tablet 5 mg PO DAILY #90 tab 09/11/18 [Rx Confirmed 09/28/18] warfarin 5 mg tablet 5 mg PO .COMPLEX #100 tab 09/13/18 [Rx Confirmed 09/28/18] calcitriol 0.25 mcg capsule 0.25 mcg PO Q OTHER DAY cap 09/25/18 [History Confirmed 09/28/18] Ejection fraction %: 45 to 49 PFSH Medical History Junctional rhythm (Chronic) Sick sinus syndrome (Chronic) Obstructive sleep apnea (Chronic) Palpitations (Chronic) Hyperlipidemia (Chronic) History of Sjogren's disease (Chronic) Rheumatoid arthritis (Chronic) Type 2 diabetes mellitus without complications (Chronic) Hypothyroidism (Chronic) CHCF (current)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 (Chronic) Postoperative atrial fibrillation (Acute) Secondary pulmonary arterial hypertension (Chronic) Dyspnea (Chronic) Obesity (BMI 30.0-34.9) (Chronic) Central apnea (Chronic) Non-rheumatic aortic stenosis (Chronic) Surgical History History of right and left heart catheterization (Chronic 09/22/16) S/P AVR (aortic valve replacement) (Chronic 11/28/17) Bilateral carpal tunnel syndrome (Chronic) History of partial hysterectomy (Chronic) History of right knee joint replacement (Chronic) History of tonsillectomy (Chronic) Hx of cholecystectomy (Chronic) Family History Brother CAD (coronary artery disease) CABG age 45 Father CAD (coronary artery disease) from [place] age 63 Mother Hypertension Cancer Sister Cancer Social History Smoking Status: Never smoker alcohol intake: current alcohol intake frequency: holidays/special occasions only Alcohol type: wine substance use type: does not use caffeine: No what type of physical activity do you participate in: none seatbelt use: always do you feel safe at home: Yes ROS Const Const: Negative for weakness, fatigue, fever(s) or headache(s) Eyes Eyes: Negative for blind spots, loss of peripheral vision or transient loss of vision ENT ENT: Negative for headache(s), dizziness, tinnitus or Nosebleed/epistaxis Cardio Chest Pain: No Palpitations: Yes Edema: None Muscle aches with walking: None Resp Respiratory: Negative for SOB with activity, SOB at rest, SOB orthopnea\SOB lying down or Cough GI GI: Negative nausea, vomiting, heartburn or vomiting blood/hematemesis : Negative for hematuria Musc Musc: Negative for muscle aches/ myalgia Neuro Neuro: Negative for weakness, headache(s), dizziness, near syncope, syncope, lightheadedness or orthostatic symptoms Nguyễn Hematologic/Lymphatic: Negative for easy bleeding Endo Endo: Negative for fatigue Cardiology Exam Const Appearance: cooperative, healthy appearing and no acute distress Nutritional Appearance: well nourished Orientation: alert, oriented x3 and oriented to person Head Head: normal to inspection, atraumatic and normocephalic Nose: external nose normal Face and Sinus: face symmetric Mouth: oral mucosae normal Eyes General: appearance normal, both eyes and all related structures Eyelids: eyelids normal Conjunctivae: conjunctivae normal Pupils: PERRL and normal by confrontation EOM: EOM intact bilaterally Neck Neck: normal visual inspection and full ROM Carotids: normal carotid upstroke and bruit Right Chest Chest inspection: normal inspection of the chest and midline sternotomy incision Auscultation: Bilateral: Clear to Auscultation Cardio Palpation: normal PMI Rate: regular rate Rhythm: regular rhythm Heart sounds: S1 normal, S2 normal and murmur; negative rub or gallop Murmur: Grade 1/6 and RLSB GI GI: normal to inspection, no hepatosplenomegaly and bowel sounds present Neuro General: alert, oriented x3, awake, CN's II-XI intact bilaterally and moves all extremities Skin Skin: no rashes or lesions noted Extremities Pulses: Normal: Right Femoral Pulse, Left Femoral Pulse, Right Dorsalis Pedis Pulse, Left Dorsalis Pedis Pulse, Right Posterior Tibial Pulse, Left Posterior Tibial Pulse, Right Radial Pulse, Left Radial Pulse Lower Extremity Edema: None: Bilateral Psych Psychological: normal affect Assessment AND Plan 1. Paroxysmal atrial fibrillation I48.0 Plan Patient is symptomatic with atrial fibrillation. Unfortunately she is not able to tolerate rate limiting medication due to her history of intermittent junctional rhythm. She is currently anticoagulated with a therapeutic INR goal of 2-3. In order to help control her rates patient will undergo a pacemaker placement. She wishes to have this done here. This will be scheduled for the near future. 2. S/P AVR (aortic valve replacement) Z95.2 11/28/[address] #21 [facility] [facility] Trifecta AVR (bioprosthetic) with pericordial patch for aortic root dilatation, per Dr. Lester @ [facility] Plan Recent echocardiogram has been reviewed. We will continue to monitor by history, exam and echocardiograms as deemed appropriate. She will continue with antibiotic prophylaxis 3. Right carotid bruit R09.89 Plan Patient does have a newly noted right carotid bruit. Will obtain a carotid ultrasound to evaluate stability Orders Orders: 4. Sick sinus syndrome I49.5 Plan With patient's history of intermittent junctional rhythm and her atrial fibrillation will proceed with a pacemaker placement to hopefully be able to control her heart rate with rate limiting medication. After patient has her pacemaker placed will start her on a low dose of rate limiting medication. We will then continue to monitor arrhythmias through pacemaker interrogations. Plan Detail Additional Comments Thank you for allowing us to participate in patient's plan of care, if you have any questions please do not hesitate to call. This note was generated using a voice recognition system and there may be incorrect words, spelling or punctuation errors that were not noted when reviewing the office note prior to saving. Follow Up 09/25/18 (keep as is) Coding Level of Care Code Off vis,est,level 4 Diagnoses Paroxysmal atrial fibrillation I48.0 S/P AVR (aortic valve replacement) Z95.2 Right carotid bruit R09.89 Sick sinus syndrome I49.5 Coding Level of Care Code Off vis,est,level 4 Diagnoses Paroxysmal atrial fibrillation I48.0 S/P AVR (aortic valve replacement) Z95.2 Right carotid bruit R09.89 Sick sinus syndrome I49.5 Supplemental Info Supplemental Information Echocardiogram in 2018 demonstrated: Normal LV size. The estimated ejection fraction is 45 %. Post operative septal motion. Stage 2 diastolic dysfunction. There is mild global hypokinesis of the left ventricle. Mild (1+) eccentric mitral valve insufficiency. Compared to the previous the AV has been replaced Contrast injection was performed. Heart cath from 2018 demonstrated: Non obstructive coronary arteries Normal LV size, wall motion,and systolic function Cardiac output - Preserved The patient has pulmonary hypertension which is moderate. Severe aortic stenosis with estimated DANA=0.94 cm2; peak to peak gradient of 30 mm Hg. Pt has symptomatic severe aortic stenosis by DANA=0.94cm2 and moderate pulmonary HTN. Recommend eval at [facility] for TAVR. Labs LDL Cholesterol 76 mg/dL (0-130) 09/04/18 HDL Cholesterol 59 mg/dL (40-) 09/04/18 Triglycerides 104 mg/dL (-199) 09/04/18 VLDL Cholesterol 21 mg/dL (5-40) 09/04/18 Diagnostics Electrocardiogram 09/08/18 Pacemaker Check 09/25/18 Chest X-Ray 09/08/18 10/02/18 1706 <Electronically signed by Julissa LEIJA> Date Julissa LEIJA Cosigner Signature: Date (if applicable) CC: Bird Garza MD [facility] Observed: 09/29/2018 Status: COMPLETED Source: [place] 12:00 AM CLINIC OTHER CAMPUS REPOSITORY Telephone (AGCARDPHRA) GRACIELA BRITO ([id number]) 1950 F Date Time Provider Department 09/29/18 HARPER HERNANDEZ During your visit today, we recorded the following information about you: Harper Hernandez MD 09/29/2018 11:57 AM Signed I saw Ms. Brito back in August and I thought that she might need a pacemaker. I told her I would send a note with my thoughts and recommendations to her chronometer tester, Dr. Allen, and then she could follow up with him and discuss further. Has she seen him yet? Harper Hernandez MD September 29, 2018 11:57 AM Monse Stearns LPN 09/29/2018 12:52 PM Signed I called and spoke to and she states she met with Julissa ('s ASSISTANT DIRECTOR OF NURSING) and has decided to get the pacemaker. states she is scheduled for the procedure on Tuesday with in [place]. SEAN Rushing MD 09/29/2018 1:07 PM Signed Reviewed. Agree with plans. I just wanted to make sure this had been followed up on. Harper Hernandez MD September 29, 2018 1:07 PM Allergies As of Date: 09/29/2018 Noted Allergy Reaction AMIODARONE 08/09/2018 14 - Other: See Comments Comments: Unclear but medication not given due to intolerance or predicted intolernace CIPRO (CIPROFLOXACIN) 11/26/2008 4 - Hives CONTRAST DYE 01/01/2009 4 - Hives DILTIAZEM 08/09/2018 14 - Other: See Comments Comments: dizziness HUMIRA (ADALIMUMAB) 11/16/2017 14 - Other: See Comments Comments: throat swelling LANTUS (INSULIN GLARGINE) 01/01/2009 7 - Swelling Comments: 11/2017: per patient, in 2009 experienced throat swelling with Lantus. Has previously used Levemir without problems. PREDNISONE 08/09/2018 14 - Other: See Comments Comments: Visual changes ZITHROMAX (AZITHROMYCIN) 01/01/2009 4 - Hives Date Reviewed: 08/24/2018 Reviewed by: Harper Hernandez - Fully Assessed Reason for Visit: Treatment Planning [881] Prescriptions as of 09/29/2018 Sig: ATORVASTATIN 10 MG TABLET Take 1 tablet by mouth daily * WARFARIN 5 MG TABLET Take 5 mg by mouth once daily* FUROSEMIDE 20 MG TABLET Take 1 tablet by mouth once d* Patient taking differently: Take 40 mg by mouth once nelia* ACETAMINOPHEN 325 MG TABLET Take 2 tablets by mouth every* Patient taking differently: Take 650 mg by mouth every 6 * ASPIRIN 81 MG TABLET,DELAYED * Take 2 tablets by mouth once * Patient taking differently: Take 81 mg by mouth once nelia* LISINOPRIL 10 MG TABLET Take 1 tablet by mouth once d* MAGNESIUM OXIDE 400 MG (241.3* Take 1 tablet by mouth twice * CALCITRIOL 0.25 MCG CAPSULE Take 0.25 mcg by mouth every * CLONAZEPAM 1 MG TABLET Take 1 mg by mouth daily at b* LEVOTHYROXINE 50 MCG TABLET Take 50 mcg by mouth once walter* HYDROXYCHLOROQUINE 200 MG TAB* Take 400 mg by mouth once walter* FOLIC ACID 1 MG TABLET Take 1 mg by mouth once daily. * ZOLOFT 50 MG TABLET Take one(1) tablet daily. Problem List As Of Date 09/29/2018 Noted Resolved Nonrheumatic aortic valve stenosis [I35.0] INVALID FOR* More... Obesity, Class III, BMI >= 40 E66.01 [E66.01] INVALID FOR* S/P AVR (aortic valve replacement) and aortopla*INVALID FOR* Secondary pulmonary arterial hypertension (HCC)* Chronic kidney disease, stage 4 (severe) (HCC) *INVALID FOR* Dyspnea on exertion [R06.09] INVALID FOR* Hypothyroidism [E03.9] INVALID FOR* Type 2 diabetes mellitus without complications *INVALID FOR* History of eye disorder [Z86.69] INVALID FOR* CHCF current use of anticoagulant therapy *INVALID FOR* Palpitations [R00.2] INVALID FOR* Paroxysmal atrial fibrillation (HCC) [I48.0] INVALID FOR* Atrial fibrillation (HCC) [I48.91] INVALID FOR*08/24/2018 Presence of prosthetic heart valve [Z95.2] INVALID FOR* At risk for stroke [Z91.89] More... 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 Velocities/BP Lt. Velocities/BP Prox CCA 75/14 cm/sec. Prox CCA 84/21 cm/sec. Mid CCA 61/15 cm/sec. Mid CCA 70/19 cm/sec. Dist CCA 73/18 cm/sec. Dist CCA 83/23 cm/sec. Prox ICA 103/24 cm/sec. Prox ICA 88/22 cm/sec. Mid ICA 89/22 cm/sec. Mid ICA 92/22 cm/sec. Dist ICA 90/31 cm/sec. Dist ICA 113/33 cm/sec. Rt. ICA/CCA = 1.69. Lt. ICA/CCA = 1.61. Prox ECA 103/14 cm/sec. Prox ECA 155/18 cm/sec. Rt. Vert. 51/10 cm/sec. Lt. Vert. 73/19 cm/sec. Right Extracranial There is heterogeneous, irregular atherosclerotic plaque noted in the right common carotid artery. There is heterogeneous, irregular atherosclerotic plaque noted in the right internal carotid artery. There is heterogeneous, smooth atherosclerotic plaque noted in the right external carotid artery. Antegrade flow is noted in the right vertebral artery. Left Extracranial There is intimal thickening but no significant atherosclerotic plaque noted in the left common carotid artery. There is heterogeneous, irregular atherosclerotic plaque noted in the left internal carotid artery. There is heterogeneous, irregular atherosclerotic plaque noted in the left external carotid artery. Antegrade flow is noted in the left vertebral artery. Procedure Carotid Duplex 13980. Exam performed in department. Interpretation Summary Calcific irregular plague at the proximal right internal carotid with <50% stenosis Calcific irregular plague at the proximal left internal carotid with <50% stenosis. Normal flow right external carotid with mild disease on the left Patent and antegrade vertebrals bilaterally No significant change from 09/22/16 Ordering Physician: Julissa Balbuena Referring Physician: Bird Garza Performed By: Francesca Macdonald, RDLAURA, RVT 09/27/181452 Date Harper Fuller MD CC: Julissa Balbuena; Bird Garza MD Date Dictated: 09/27/18 135 Date Transcribed: 09/27/181452 Interventional Pain Physician: Signed PACEMAKER CHECK Observed: 09/26/2018 Status: F Source: [place] 10:08 AM [facility] REPOSITORY [facility] [address] [place] [address] Pacemaker Check Date of Service: 09/25/181356 MR#: [id number] Acct: [id number] Name: GRACIELA BRITO Rep #: [id number] : 1950 From: Dannielle Stewart Age/Sex: 68/F Location: [facility] Status: Signed Billing Codes Nurse, Teaching, Wound Ck (no charge): Yes 09/25/18 135 <Electronically signed by Dannielle Stewart > Date Dannielle Stewart 09/26/18 1008<Electronically signed by Taz Allen MD> Dennis Signature: Date (if applicable) Taz Allen MD CC: PROTHROMBIN TIME W/INR Collected: 09/25/2018 Status: F Source: [place] 12:17 PM [facility] REPOSITORY TYPE CODE TESTS RESULT OUT OF RANGE REFERENCE UNITS LAB L300.4150 11.7-14.9 SECONDS High PROTIME 23.3 LAB L300.4200 Normal INR 2.1 Performed By: #### L300.3900 #### [facility] [address] [place], [place], [address] URINALYSIS, COMPLETE Collected: 09/25/2018 Status: F Source: [place] 12:17 PM [facility] REPOSITORY Order Comment: How was Urine Obtained? DEPUTY TREASURER TO SPECIFY TYPE CODE TESTS RESULT OUT OF RANGE REFERENCE UNITS LAB L400.3000 Yellow COLOR Normal Yellow LAB L400.3050 Clear Normal CLARITY Clear LAB L400.3200 Normal mg/dl Normal GLUCOSE, UR Normal LAB L400.3300 Negative mg/dL Normal BILIRUBIN URINE Negative LAB L400.3400 Negative mg/dl Normal KETONE UR Negative LAB L400.3465 1.002-1.030 Normal SP.GR. DIPSTX 1.010 LAB L400.3550 5.0 - 8.0 pH UR Normal 6.5 LAB L400.3600 Negative mg/dl PROT Normal DIPSTX Negative LAB L400.3700 Normal mg/dl Normal UROBILI Normal LAB L400.3750 Negative Normal NITRITE UR Negative LAB L400.3780 Negative /ul Normal OCCULT BLOOD-UR Negative LAB L400.3800 Negative /ul LEUK Normal ESTERASE Negative LAB L400.4050 0-5 /hpf WBC Normal 0-5 SEEN LAB L400.4100 0-5 /hpf 0 Normal RBC-UA SEEN LAB L400.4150 5-10 /hpf SQUAM Normal EPI 0-5 SEEN LAB L400.4300 None Seen /hpf 0 Normal BACTERIA SEEN LAB L400.4350 <or=2+ /hpf 0 Normal MUCUS, URINE SEEN Performed By: #### L400.0001 #### [facility] [address] [place], [address] BASIC METABOLIC Collected: 09/25/2018 Status: F Source: REY PROFILE (BMP) 12:17 PM [facility] REPOSITORY TYPE CODE TESTS RESULT OUT OF RANGE REFERENCE UNITS LAB L501.0100 74-106 mg/dL Normal GLU 83 Result Comment: Please note revised GLUCOSE reference range effective 2017. LAB L501.1000 7-18 mg/dL High BUN 23 LAB L501.1100 0.55-1.02 mg/dL Normal CREAT,SERUM 1.00 Result Comment: The validity of the calculated GFR AND GFRAA in patients over 70 years has not been determined. Clinical correlation is essential. LAB L501.1110 >60 mL/min Low EST GFR 59 Result Comment: Non- GFR Calc LAB L501.1115 >60 mL/min Normal EST GFR - AA 71 Result Comment: GFR Calc LAB L501.1300 10-20 RATIO High BUN/CRE 23.0 LAB L501.2200 8.5-10.1 mg/dL CA Normal 9.1 LAB L501.5300 136-145 mmol/L NA Normal 141 LAB L501.5600 3.5-5.1 mmol/L K Normal 4.0 LAB L501.5900 98-107 mmol/L CL Normal 104 LAB L501.6100 21.0-32.0 mmol/L Normal CO2 31.0 LAB L501.6200 5-15 Normal GAP 6 Performed By: #### L500.2500 #### [facility] [address] [address] [place], [place], [address] CBC-COMPLETE BLOOD CNT Collected: 09/25/2018 Status: F Source: REY NO DIFF 12:17 PM [facility] REPOSITORY TYPE CODE TESTS RESULT OUT OF RANGE REFERENCE UNITS LAB L100.1000 4.4-11.0 K/mm3 Normal WBC 6.7 LAB L100.1200 4.2-5.4 M/mm3 Low RBC 3.98 LAB L100.1300 12.0-15.0 g/dl Normal HGB 12.6 LAB L100.1400 37-47 % Normal HCT 39.9 LAB L100.1500 81-99 fL High MCV 100.3 LAB L100.1600 27.0-32.0 pg Normal MCH 31.7 LAB L100.1700 32-36 g/gl Low MCHC 31.6 LAB L100.1810 11.6-14.6 % Normal RDW CV 14.3 LAB L100.1820 35.1-43.9 fl High RDW SD 51.6 LAB L100.1900 150-450 K/mm3 Normal PLT 222 LAB L100.2000 6.2-12.0 fl Normal MPV 10.5 Performed By: #### L100.0500 #### [facility] [address] [place], [address] PROTHROMBIN TIME W/INR Collected: 09/20/2018 Status: F Source: REY 10:59 AM [facility] REPOSITORY TYPE CODE TESTS RESULT OUT OF RANGE REFERENCE UNITS LAB L300.4150 11.7-14.9 SECONDS High PROTIME 25.6 LAB L300.4200 Normal INR 2.3 Performed By: #### L300.3900 #### [facility] [address] [place], [address] 12 LEAD ELECTROCARDIOGRAM Observed: 09/13/2018 Status: F Source: REY 2:37 PM [facility] REPOSITORY [facility] Cardiovascular Services [address] [place] [address] 12 Lead EKG 09/07/18 2342 MR#: [id number] Acct: [id number] Name: GRACIELA BRITO Rep #: [id number] : 1950 68 From: Taz Allen MD Attending Dr: Status: DEP ER Ordering Dr: Ayush Haines DO Date: 09/08/18 Location: ED Sex: F C Admitted: Test Reason : PALPS Blood Pressure : / mmHG Vent. Rate : 079 BPM Atrial Rate : 079 BPM P-R Int : 172 ms QRS Dur : 084 ms QT Int : 376 ms P-R-T Axes : 018 -02 097 degrees QTc Int : 431 ms Normal sinus rhythm with sinus arrhythmia Septal infarct , age undetermined Abnormal ECG Confirmed by TAZ ALLEN ([id number]), newspaper copy editor DIANE NAVARRETE ([id number]) on 09/13/2018 2:37:06 PM Referred By: Bird Garza Confirmed By:TAZ ALLEN 09/13/18 1437 Date Taz Allen MD CC: Ayush Haines DO; Bird Garza MD Signed EMERGENCY DEPARTMENT Observed: 09/08/2018 Status: F Source: REY SUMMARY 2:03 AM [facility] REPOSITORY [facility] Medical Records Department [address] [place] [address] Emergency Department Summary 09/08/18 0157 MR#: [id number] Acct: [id number] Name: GRACIELA BRITO Rep #: [id number] : 1950 68 From: Ayush Haines DO PCP: Bird Garza MD Status: REG ER - ER Visit Summary Date of Service: 09/08/18 Chief Complaint: Palpitations History of Present Illness: The patient is a 68 F who presents with palpitations that began tonight. Patient states she was at home when she felt like she went into atrial fibrillation. Patient states she has a history of paroxysmal atrial fibrillation and felt similar to prior episodes. Patient states she took 120 mg of Cardizem today and weight of approximately 1 hour. Patient felt no better after this. Patient came to the emergency department. Patient admits to some nausea and some shortness of breath. Patient denies any vomiting. Patient denies any diaphoresis. Patient denies any cough or fever. Physical Examination: Vital signs are stable. Patient is afebrile. Patient is in no acute distress. Oral mucosa is pink and moist. Neck is supple. Trachea is midline. There is no JVD noted. Heart was regular rate and rhythm. Lungs are clear and equal bilaterally. Abdomen is soft. Bowel sounds are normal. There is no tenderness. Cranial nerves II through XII are intact. There are no focal motor or sensory deficits noted. The remaining physical exam is within normal limits. Test Results: EKG showed normal sinus rhythm with a rate of 79. There are no acute ST or T wave changes. This was unchanged compared to previous EKG dated 06/26/2018. PA and lateral chest x-ray was obtained. There is no acute cardiopulmonary process. CBC, basic metabolic profile, troponin were obtained and were all within normal limits with the exception of a slightly elevated creatinine of 1.16 which is chronic for the patient. Emergency Department Course and Treatment: Patient was given aspirin here. Patient had no further episodes of chest pain or palpitations. Patient was instructed to follow-up with her primary care physician in 5-7 days. Patient was instructed to return if worse in any way. Patient understood and was agreeable with the plan. All questions were answered. Disposition: Discharged home Impression: Paroxysmal atrial fibrillation This note was generated with [employer] software. It may contain incorrect words, spelling, and punctuation that were not noted in review of the chart prior to signing ED Disposition - Plan for ED Patient: Disposition: Home or Assisted Living Chief Complaint: Palpitations Diagnosis: Paroxysmal atrial fibrillation Instructions: ED Palpitations, ED Afib Referrals: Bird Garza MD [Primary Care Provider] - What to do if you have Problems For any increased pain, shortness of breath, bleeding, nausea or vomiting, chest pain, or any unexpected problems, contact your Primary Care Provider. Call [facility] ([phone]) or report to the closest Emergency Room. Call 911 if necessary. 09/08/18 0203 <Electronically signed by Ayush Haines DO> Date Ayush Haines DO Cosigner Signature (If Indicated): Date CC: Bird Garza MD CBC W/DIFF, AUTOMATED Collected: 09/08/2018 Status: F Source: REY 12:14 AM [facility] REPOSITORY TYPE CODE TESTS RESULT OUT OF RANGE REFERENCE UNITS LAB L100.1000 4.4-11.0 K/mm3 Normal WBC 8.1 LAB L100.1200 4.2-5.4 M/mm3 Low RBC 3.91 LAB L100.1300 12.0-15.0 g/dl Normal HGB 12.1 LAB L100.1400 37-47 % Normal HCT 38.0 LAB L100.1500 81-99 fL Normal MCV 97.2 LAB L100.1600 27.0-32.0 pg Normal MCH 30.9 LAB L100.1700 32-36 g/gl Low MCHC 31.8 LAB L100.1810 11.6-14.6 % High RDW CV 14.7 LAB L100.1820 35.1-43.9 fl High RDW SD 52.1 LAB L100.1900 150-450 K/mm3 Normal PLT 161 LAB L100.2000 6.2-12.0 fl Normal MPV 9.1 LAB L100.2100 47-70 % Normal NEUT% 69.8 LAB L100.2200 19-41 % Normal LY% 21.0 LAB L100.2300 0-10 % Normal MONO% 8.4 LAB L100.2400 0-5 % Normal EO% 0.6 LAB L100.2500 0-1 % Normal BASO% 0.1 LAB L100.2550 0.0-0.9 % Normal IM GRAN % 0.100 Result Comment: IG% - Immature Granulocytes (promyelocytes, myelocytes and metamyelocytes) > 1% indicates that a LEFT SHIFT is Present. LAB L100.2620 2.0-7.7 X10 3/uL Normal Absolute Neut 5.6 LAB L100.2720 0.83-4.51 X10 3/ul Normal Absolute Lymph 1.69 Performed By: #### L100.0100 #### [facility] [address] [place], [address] BASIC METABOLIC Collected: 09/08/2018 Status: F Source: [place] PROFILE ([facility]) 12:14 AM [facility] REPOSITORY TYPE CODE TESTS RESULT OUT OF RANGE REFERENCE UNITS LAB L501.0100 74-106 mg/dL High GLU 111 Result Comment: Fasting Glucose result from 100 to 125 mg/dL suggests IMPAIRED HOMEOSTASIS per A.D.A. criteria. Please note revised GLUCOSE reference range effective 2017. LAB L501.1000 7-18 mg/dL High BUN 25 LAB L501.1100 0.55-1.02 mg/dL High CREAT,SERUM 1.16 Result Comment: The validity of the calculated GFR AND GFRAA in patients over 70 years has not been determined. Clinical correlation is essential. LAB L501.1110 >60 mL/min Low EST GFR 49 Result Comment: Non- GFR Calc LAB L501.1115 >60 mL/min Normal EST GFR - AA 60 Result Comment: GFR Calc LAB L501.1255 ml/min Normal Estimated CRCL 69.76 LAB L501.1300 10-20 RATIO High BUN/CRE 21.6 LAB L501.2200 8.5-10 mg/dL Low .1 CA 8.2 LAB L501.5300 136-14 mmol/L Normal 5 NA 143 LAB L501.5600 3.5-5. mmol/L Normal 1 K 4.2 LAB L501.5900 98-107 mmol/L Normal CL 107 LAB L501.6100 21.0-3 mmol/L Normal 2.0 CO2 28.0 LAB L501.6200 5-15 Normal GAP 8 Performed By: #### L500.2500, L501.4010 #### [facility] [address] [place], [address] TROPONIN-I Collected: 09/08/2018 Status: F Source: [place] 12:14 AM [facility] REPOSITORY TYPE CODE TESTS RESULT OUT OF RANGE REFERENCE UNITS LAB L501.4010 <0.045 ng/mL Normal < 0.015 TROPONIN-I Result Comment: TROPONIN-I EXPECTED VALUES <0.045 Negative 0.045 - 0.590 Consistent with Cardiac Damage > OR = 0.600 Critical Value Not every elevated troponin is indicative of [place]. These values should be used with clinical judgement in examining the patient's clinical picture for diagnosis. To establish a diagnosis of MN versus myocardial injury, there must be a demonstrated rise and/or fall in the troponin values, in addition to ischemic symptoms, EKG changes, new regional wall motion abnormality, and/or angiographical evidence. PLEASE NOTE: REFERENCE RANGES EDITED 18 Performed By: #### L500.2500, L501.4010 #### [facility] [address] [place], [address] CHEST PA AND LATERAL Observed: 09/08/2018 Status: F Source: [place] 12:04 AM [facility] REPOSITORY [facility] Imaging Services [address] [place] [address] Chest PA and Lateral MR#: [id number] Acct: [id number] Name: GRACIELA BRITO Rep #: [id number] : 1950 F 68 From: Donell Gonzalez PCP: Bird Garza MD Status: REG ER Study: Chest PA and Lateral Date of Exam: 09/08/18 Exam# [id number] Ordering Dr: Ayush Haines DO STUDY: X-RAY CHEST REASON FOR EXAM: Female, 68 years old. Palpitations TECHNIQUE: PA and lateral COMPARISON: June 26, 2018 FINDINGS: The lungs are clear and expanded. There are NO infiltrates, effusions or pneumothoraces. Normal size heart. There has been open heart surgery. Normal visualized pulmonary arteries. Normal visualized aortic arch and descending thoracic aorta. Normal visualized thoracic spine. Normal visualized ribs, clavicles, and shoulders. There is no demonstrated abnormality of the visualized soft tissue structures of the upper abdomen. RAD/Chest PA and Lateral IMPRESSION: The lungs are clear and expanded. There are NO infiltrates, effusions or pneumothoraces. Normal size heart. There has been open heart surgery. Electronically Signed: Donell Gonzalez MD at 1:31 EST , Service support , CC: Ayush Haines DO; Bird Garza MD Interventional Pain Physician: Signed MICROALB:CREAT Collected: 09/04/2018 Status: F Source: REY RATIO,RANDOM UR 11:12 AM [facility] REPOSITORY TYPE CODE TESTS RESULT OUT OF RANGE REFERENCE UNITS LAB L501.1200 NO RANGE EST. mg/dL Normal UR CREAT 275.00 LAB L502.0500 NO RANGE EST. mg/L Normal 44.5 MICROALBUMIN ,UR LAB L502.0600 <30 mg/g CRE mg/g CRE Normal 16.2 MALB:CREAT Performed By: #### L502.0250 #### [facility] [address] [place], [address] BASIC METABOLIC Collected: 09/04/2018 Status: F Source: REY PROFILE (BMP) 11:12 AM [facility] REPOSITORY TYPE CODE TESTS RESULT OUT OF RANGE REFERENCE UNITS LAB L501.0100 74-106 mg/dL Normal GLU 86 Result Comment: Please note revised GLUCOSE reference range effective 2017. LAB L501.1000 7-18 mg/dL High BUN 19 LAB L501.1100 0.55-1.02 mg/dL High CREAT,SERUM 1.04 Result Comment: The validity of the calculated GFR AND GFRAA in patients over 70 years has not been determined. Clinical correlation is essential. LAB L501.1110 >60 mL/min Low EST GFR 56 Result Comment: Non- GFR Calc LAB L501.1115 >60 mL/min Normal EST GFR - AA 68 Result Comment: GFR Calc LAB L501.1300 10-20 RATIO Normal BUN/CRE 18.3 LAB L501.2200 8.5-10.1 mg/dL CA Normal 8.8 LAB L501.5300 136-145 mmol/L NA Normal 145 LAB L501.5600 3.5-5.1 mmol/L K Normal 4.3 LAB L501.5900 98-107 mmol/L CL Normal 105 LAB L501.6100 21.0-32.0 mmol/L Normal CO2 31.0 LAB L501.6200 5-15 Normal GAP 9 Performed By: #### L500.2500, L500.3400, L500.4100, L501.18952, L501.9310, L501.9520 #### [facility] [address] [place], [address] LIVER PROFILE Collected: 09/04/2018 Status: F Source: [place] 11:12 AM [facility] REPOSITORY TYPE CODE TESTS RESULT OUT OF RANGE REFERENCE UNITS LAB L501.1500 6.4-8.2 g/dL Normal T PROT 7.1 LAB L501.1800 3.2-5.0 g/dL Normal ALB 3.6 LAB L501.1950 2.2-4.2 g/dL Normal GLOB 3.5 LAB L501.4100 15-37 U/L Normal AST 22 LAB L501.4305 45-117 U/L Normal ALK P 72 LAB L501.4405 13-56 U/L Normal ALT 22 LAB L501.4600 0.20-1.00 mg/dL Normal T BILI 0.50 LAB L501.4700 0.00-0.30 mg/dL Normal D BILI 0.12 Performed By: #### L500.2500, L500.3400, L500.4100, L501.17001, L501.9310, L501.9520 #### [facility] [address] [place], [place], [address] LIPID PROFILE Collected: 09/04/2018 Status: F Source: [place] 11:12 AM [facility] REPOSITORY TYPE CODE TESTS RESULT OUT OF RANGE REFERENCE UNITS LAB L501.4900 200 mg/dL Normal CHOL 156 Result Comment: <200 mg/dL Desirable 200-240 mg/dL Borderline >240 mg/dL High Risk LAB L501.5000 mg/dL Normal TRIG 104 Result Comment: The drugs N-Acetylcysteine and Metamizole may falsely depress this assay. Serum Triglycerides Reference Interval Normal <150 mg/dL Borderline high 150 - 199 mg/dL High 200 - 499 mg/dL Very High > or = 500 mg/dL LAB L501.6400 mg/dL Normal HDL 59 Result Comment: The drugs N-Acetylcysteine and Metamizole may falsely depress this assay. Reference Range HDL <40 mg/dL Low HDL Cholesterol HDL >or= 60 mg/dL High HDL Cholesterol LAB L501.6500 0-130 mg/dL Normal LDL 76 LAB L501.6600 5-40 mg/dL Normal VLDL 21 Performed By: #### L500.2500, L500.3400, L500.4100, L501.01749, L501.9310, L501.9520 #### [facility] [address] [place], [address] FREE T3 Collected: 09/04/2018 Status: F Source: [place] 11:12 AM [facility] REPOSITORY TYPE CODE TESTS RESULT OUT OF RANGE REFERENCE UNITS LAB L501.12992 2.18-3.98 pg/mL Normal FREE T3 2.3 Performed By: #### L500.2500, L500.3400, L500.4100, L501.46194, L501.9310, L501.9520 #### [facility] [address] [place], [address] T4 TOTAL, THYROXIN Collected: 09/04/2018 Status: F Source: [place] 11:12 AM [facility] REPOSITORY TYPE CODE TESTS RESULT OUT OF RANGE REFERENCE UNITS LAB L501.9310 4.8-13.9 ug/dL T4 Normal THYROXIN 10.8 Performed By: #### L500.2500, L500.3400, L500.4100, L501.72477, L501.9310, L501.9520 #### [facility] [address] [place], [place], [address] THYROID STIM HORMONE Collected: 09/04/2018 Status: F Source: [place] ([facility]) 11:12 AM [facility] REPOSITORY TYPE CODE TESTS RESULT OUT OF RANGE REFERENCE UNITS LAB L501.9520 0.358-3.74 uIU/mL Normal TSH 2.78 Performed By: #### L500.2500, L500.3400, L500.4100, L501.14751, L501.9310, L501.9520 #### [facility] [address] [place], [place], [id number] PROGRESS Observed: 08/24/2018 Status: COMPLETED Source: [place] 10:02 AM CLINIC OTHER CAMPUS REPOSITORY HNO ID: [id number] Author: Harper Hernandez Service: (none) Author Type: Physician Type: Progress Notes Filed: 08/24/2018 8:09 PM Note Text: PRIMARY CARE PHYSICIAN: Bird Garza MD [address] [facility] [address] [place] [address] REFERRING PHYSICIAN: Taz Allen MD (Dr) [address] [facility] [address] Patient Care Team: Bird Garza as PCP - General (Family Practice) Taz Allen (Cardiology) Indu Rm (Rheumatology) Silviano Vergara (Nephrology) Mauricio Feldman (Pulmonary Disease) CHIEF COMPLAINT: Evaluation for arrhythmia HISTORY OF PRESENT ILLNESS: Ms. Brito is a 68 year old female who presents today for evaluation of arrhythmia, referred by her local chronometer tester Dr. Aleln. She has a history of nonrheumatic aortic valve stenosis and underwent bioprosthetic aortic valve replacement in November 2017. Postoperatively she has been experiencing recurrent atrial arrhythmias including atrial fibrillation outpatient cardiac monitoring for about one month in June revealed about 13 episodes of atrial fibrillation, the longest episode lasting about 20 minutes, representing overall less than 1% arrhythmia burden. Ms. Brito states that she was only aware of one of those episodes. She states that she has been treated with different medications for the arrhythmia, but has not tolerated these medications well. For example, treatment with diltiazem was not tolerated due to bradycardia, and metoprolol was also not tolerated for similar reasons. As stated above, she is not always aware of the episodes of arrhythmia. She does feel at times that her heart flips as or flutters. Sometimes this is associated with rapid heartbeats and shortness of breath and she notices the pulse being 150 bpm. She only noticed the rapid heart rates a couple of times, with the last episode occurring just prior to wearing the quality assurance monitor body in June. She states that she sometimes experiences episodes of dizziness that occur suddenly, and last a few minutes and then subside. These episodes can occur without regard to whether she is standing or seated but do not occur when she is lying down. She denies chest pain, shortness of breath, orthopnea, PND, syncope. During cardiac rehabilitation she was noted not to look well. She was found to have junctional bradycardia. At that point the diltiazem was discontinued. 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 - Mixed hyperlipidemia Hyperlipidemia - Myalgia and myositis, unspecified - Nerve damage LEFT ARM - Nonrheumatic aortic valve stenosis 11/17/2017 Added automatically from request for surgery [id number] - Obesity (BMI 30-39.9) - Palpitations 08/30/2016 - Paroxysmal atrial fibrillation (HCC) 08/24/2018 - Presence of prosthetic heart valve 04/28/2018 - Rheumatoid arthritis(714.0) - S/P AVR (aortic valve replacement) and aortoplasty 12/04/2017 - Secondary pulmonary arterial hypertension (HCC) - Tachycardia-bradycardia syndrome (HCC) - Type 2 diabetes mellitus without complications ([facility]) 04/20/2018 patient states this problem resolved - Unspecified sleep apnea PAST SURGICAL HISTORY Procedure Laterality Date - CARDIAC CATH 10/26/2017 [facility]; LVEF 65-75%; mild nonobstructive CAD; severe - CARDIAC MONITORING CONTINUOUS 06/28/2018 PAF; 13 episodes; longest episode 20 minutes; < 1% AF burden - CARDIAC VALVE SURGERY HX 11/28/[address] [facility] bioprosthetic; ascending aorta patch; CCAG Dr. Lester - DELIVERY ONLY 1969 , low cervical - ECHOCARDIOGRAM 03/30/2018 - HOLTER MONITOR 04/2018 sinus rhythm, rare PACs; symptoms did not correlate with arrhythmia - REMOVAL GALLBLADDER 1971 Cholecystectomy - REMOVAL OF TONSILS,<12 Y/O 1976 Tonsillectomy - RE[facility]ISE MEDIAN N/CARPAL TUNNEL SURG Bilateral Carpal tunnel decomp - TOTAL ABDOM HYSTERECTOMY 1975 Hysterectomy, DIANDRA - TOTAL KNEE REPLACEMENT Right 2003 Knee replacement, total SOCIAL HISTORY Social History Substance Use Topics - Smoking status: Former Smoker Packs/day: 1.00 Years: 2.00 Types: Cigarettes Start date: 1968 Quit date: 1970 - Smokeless tobacco: Never Used - Alcohol use No FAMILY HISTORY Problem Relation Age of Onset - Cancer Mother lung cancer - Hypertension Mother - other (smoker) Mother - Coronary Artery Disease Father 63 from [place] - Heart disease Father CABG - Hypertension Father - Cervical Cancer Sister - Heart disease Sister - Heart Attack Sister 45 - Coronary Artery Disease Brother 45 CABG - Heart disease Brother - other (rheumatic fever) Brother - Cancer Brother lung cancer - other (smoker) Brother - Heart Brother hole in heart from rheumatic fever - other (motor vehicle accident) Brother - other (rheumatic fever) Brother - other (spinal meningitis) Brother - Multiple Sclerosis Sister ALLERGIES: ALLERGIES Allergen Reactions - Amiodarone Other: See Comments Unclear but medication not given due to intolerance or predicted intolernace - Cipro [Ciprofloxaci* Hives - Contrast Dye Hives - Diltiazem Other: See Comments dizziness - Humira [Adalimumab] Other: See Comments throat swelling - Lantus [Insulin Gla* Swelling 11/2017: per patient, in 2009 experienced throat swelling with Lantus. Has previously used Levemir without problems. - Prednisone Other: See Comments Visual changes - Zithromax [Azithrom* Hives MEDICATIONS: atorvastatin (LIPITOR) 10 mg tablet, Take 1 tablet by mouth daily at bedtime. warfarin (COUMADIN) 5 mg tablet, Take 5 mg by mouth once daily. 7.5 mg Mon - Sat, 5 mg Sun only. furosemide (LASIX) 20 mg tablet, Take 1 tablet by mouth once daily for 30 doses. acetaminophen (TYLENOL) 325 mg tablet, Take 2 tablets by mouth every 6 hours as needed. aspirin, enteric coated (ASPIRIN, ENTERIC COATED) 81 mg EC tablet, Take 2 tablets by mouth once daily. lisinopril (ZESTRIL, PRINIVIL) 10 mg tablet, Take 1 tablet by mouth once daily. magnesium oxide (MAG-OX) 400 mg tablet, Take 1 tablet by mouth twice daily. calcitriol (ROCALTROL) 0.25 mcg capsule, Take 0.25 mcg by mouth every 48 hours. clonazePAM (KLONOPIN) 1 mg tablet, Take 1 mg by mouth daily at bedtime. levothyroxine (SYNTHROID) 50 mcg tablet, Take 50 mcg by mouth once daily. hydroxychloroquine (PLAQUENIL) 200 mg tablet, Take 400 mg by mouth once daily. folic acid 1 mg tablet, Take 1 mg by mouth once daily. sertraline hcl(ZOLOFT 50 MG TAB), Take one(1) tablet daily. REVIEW OF SYSTEMS: PAIN ASSESSMENT: Negative for pain, history of chronic pain, or current treatment for a chronic pain condition. GENERAL: Negative for: Weight loss or gain, Fever or Chills, Weakness and Sleep difficulties. 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 General: Well appearing, in no acute distress, speaking in complete sentences. Skin: No clubbing, no cyanosis. Eyes: Extra ocular movements intact, Non-icteric sclerae Neck: no jugular venous distention, Lungs: Clear to auscultation bilaterally, no wheezing or rhonchi. Heart: Regular rhythm, S1, S2 normal, Gr I/ systolic murmur upper sternal borders; no loud rubs Extremities: No peripheral edema . Grade 2/4 distal pulses bilaterally. Neuro: Oriented to person, place and time, alert, cooperative, gait coordinated. CARDIOVASCULAR MEDICINE TESTING: Electrocardiogram: Sinus rhythm 61 bpm; normal conduction intervals (ID 152 ms, QRS 88 ms); septal infarct pattern I have personally reviewed the Electrocardiogram. ASSESSMENT/PLAN: 1. Paroxysmal atrial fibrillation (HCC) - ICD9: 427.31, ICD10: I48.0 (primary diagnosis) Recurrent; not severely symptomatic in itself but control of the rapid ventricular response rates has been challenging due to sinus bradycardia (sick sinus syndrome aka tachycardia-bradycardia syndrome) 2. Palpitations - ICD9: 785.1, ICD10: R00.2 3. Tachycardia-bradycardia syndrome (HCC) - ICD9: 427.81, ICD10: I49.5 Seems to have substantial tachycardia-bradycardia syndrome, involving atrial fibrillation with rapid ventricular response rates alternating with sinus bradycardia that has been exacerbated by ventricular rate controlling medications for the AF 4. Nonrheumatic aortic valve stenosis - ICD9: 424.1, ICD10: I35.0 Severe s/p AVR 11/2017 5. S/P AVR (aortic valve replacement) and aortoplasty - ICD9: V43.3, ICD10: Z95.2 See below 6. Presence of prosthetic heart valve - ICD9: V43.3, ICD10: Z95.2 bioprosthetic AVR 11/2017 7. Dyspnea on exertion - ICD9: 786.09, ICD10: R06.09 8. 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 Anticoagulated with warfarin - ICD9: V58.83, V58.61, ICD10: Z51.81, Z79.01 indication: stroke prevention AF; risk:benefit of oral anticoagulation therapy seems favorable IMPRESSION: Ms. Brito has been having recurrent paroxysmal atrial fibrillation since the valve surgery procedure in November 2017. She does not seem to have severe symptoms from the atrial fibrillation, but ventricular rate control has been challenging due to the tendency for sinus bradycardia that has been exacerbated by the ventricular rate controlling medications. Multiple such medications have been discontinued due to bradycardia and/or intolerance, including beta blockers and non-dihydropyridine calcium channel blockers. I doubt that we are going to be able to control the rapid ventricular response rates to the atrial fibrillation without the support and protection of a cardiac pacemaker. With such backup, the rate controlling medications could be prescribed more effectively. This would most likely alleviate any bothersome symptoms from the atrial arrhythmias. I do not feel at this point that antiarrhythmic drug therapy is indicated. Such therapy might be indicated if she continued to have excessively bothersome symptoms from atrial fibrillation despite adequate ventricular rate control. I also do not feel that more aggressive measures to treat the atrial fibrillation are warranted at this time, such as AF catheter ablation. I had a detailed discussion with Ms. Brito regarding my evaluation and recommendations. After our discussion, Ms. Brito expressed her understanding and I answered all her questions to her apparent satisfaction. She seemed to agree with the concept of the potential benefit of cardiac pacing. I told her that I would send a note to her chronometer tester, Dr. Allen, and also try to discuss the case with him directly to get his feedback and opinion. INFORMED CONSENT The risks, benefits and anticipated outcomes of the procedure, the risks and benefits of the alternatives to the procedure and the roles and tasks of the personnel to be involved were discussed with the patient. She will likely proceed after I discuss with Dr. Allen. PLAN AND RECOMMENDATIONS: Plan as outlined above. Discuss case with Dr. Allen. Return if symptoms worsen or fail to improve. She will continue to follow up with Dr. Allen. Follow up with me will be determined depending upon the plan of care. Harper Hernandez MD 08/24/2018 CNOV Observed: 08/24/2018 Status: COMPLETED Source: [facility] 9:00 AM CLINIC OTHER CAMPUS REPOSITORY Office Visit (AGCARDPHRA) GRACIELA BRITO ([id number]) 1950 F Date Time Provider Department 08/24/18 9:00 AM HARPER HERNANDEZ During your visit today, we recorded the following information about you: Pulse Respiration Blood pressure Weight 69/minute 16/minute 136/88 94.3 kg Height 1.448 m Rubén Stewart MA 08/24/2018 9:12 AM Signed No cardiac complaints today. YANCY Galicia. Harper Hernandez MD 08/24/2018 8:09 PM Signed PRIMARY CARE PHYSICIAN: Bird Garza MD [address] [place] [address] [address] [place] [address] REFERRING PHYSICIAN: Taz Allen MD ([facility]) [address] [place] [phone] Patient Care Team: Bird Garza as PCP - General (Family Practice) Taz Allen (Cardiology) Indu Rm (Rheumatology) Silviano Vergara (Nephrology) Mauricio Feldman (Pulmonary Disease) CHIEF COMPLAINT: Evaluation for arrhythmia HISTORY OF PRESENT ILLNESS: Ms. Brito is a 68 year old female who presents today for evaluation of arrhythmia, referred by her local chronometer tester Dr. Allen. She has a history of nonrheumatic aortic valve stenosis and underwent bioprosthetic aortic valve replacement in November 2017. Postoperatively she has been experiencing recurrent atrial arrhythmias including atrial fibrillation outpatient cardiac monitoring for about one month in June revealed about 13 episodes of atrial fibrillation, the longest episode lasting about 20 minutes, representing overall less than 1% arrhythmia burden. Ms. Brito states that she was only aware of one of those episodes. She states that she has been treated with different medications for the arrhythmia, but has not tolerated these medications well. For example, treatment with diltiazem was not tolerated due to bradycardia, and metoprolol was also not tolerated for similar reasons. As stated above, she is not always aware of the episodes of arrhythmia. She does feel at times that her heart flips as or flutters. Sometimes this is associated with rapid heartbeats and shortness of breath and she notices the pulse being 150 bpm. She only noticed the rapid heart rates a couple of times, with the last episode occurring just prior to wearing the quality assurance monitor body in June. She states that she sometimes experiences episodes of dizziness that occur suddenly, and last a few minutes and then subside. These episodes can occur without regard to whether she is standing or seated but do not occur when she is lying down. She denies chest pain, shortness of breath, orthopnea, PND, syncope. During cardiac rehabilitation she was noted not to look well. She was found to have junctional bradycardia. At that point the diltiazem was discontinued. 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 - Mixed hyperlipidemia Hyperlipidemia - Myalgia and myositis, unspecified - Nerve damage LEFT ARM - Nonrheumatic aortic valve stenosis 11/17/2017 Added automatically from request for surgery [id number] - Obesity (BMI 30-39.9) - Palpitations 08/30/2016 - Paroxysmal atrial fibrillation (HCC) 08/24/2018 - Presence of prosthetic heart valve 04/28/2018 - Rheumatoid arthritis(714.0) - S/P AVR (aortic valve replacement) and aortoplasty 12/04/2017 - Secondary pulmonary arterial hypertension (HCC) - Tachycardia-bradycardia syndrome ([facility]) - Type 2 diabetes mellitus without complications ([facility]) 04/20/2018 patient states this problem resolved - Unspecified sleep apnea PAST SURGICAL HISTORY Procedure Laterality Date - CARDIAC CATH 10/26/2017 [facility]; LVEF 65-75%; mild nonobstructive CAD; severe - CARDIAC MONITORING CONTINUOUS 06/28/2018 PAF; 13 episodes; longest episode 20 minutes; < 1% AF burden - CARDIAC VALVE SURGERY HX 11/28/[address] [facility] bioprosthetic; ascending aorta patch; [facility] Dr. Lester - DELIVERY ONLY 1970 , low cervical - ECHOCARDIOGRAM 03/30/2018 - HOLTER MONITOR 04/2018 sinus rhythm, rare PACs; symptoms did not correlate with arrhythmia - REMOVAL GALLBLADDER 1971 Cholecystectomy - REMOVAL OF TONSILS,<12 Y/O 1976 Tonsillectomy - REVISE MEDIAN N/CARPAL TUNNEL SURG Bilateral Carpal tunnel decomp - TOTAL ABDOM HYSTERECTOMY 1975 Hysterectomy, DIANDRA - TOTAL KNEE REPLACEMENT Right 2003 Knee replacement, total SOCIAL HISTORY Social History Substance Use Topics - Smoking status: Former Smoker Packs/day: 1.00 Years: 2.00 Types: Cigarettes Start date: 1968 Quit date: 1970 - Smokeless tobacco: Never Used - Alcohol use No FAMILY HISTORY Problem Relation Age of Onset - Cancer Mother lung cancer - Hypertension Mother - other (smoker) Mother - Coronary Artery Disease Father 63 from [place] - Heart disease Father CABG - Hypertension Father - Cervical Cancer Sister - Heart disease Sister - Heart Attack Sister 45 - Coronary Artery Disease Brother 45 CABG - Heart disease Brother - other (rheumatic fever) Brother - Cancer Brother lung cancer - other (smoker) Brother - Heart Brother hole in heart from rheumatic fever - other (motor vehicle accident) Brother - other (rheumatic fever) Brother - other (spinal meningitis) Brother - Multiple Sclerosis Sister ALLERGIES: ALLERGIES Allergen Reactions - Amiodarone Other: See Comments Unclear but medication not given due to intolerance or predicted intolernace - Cipro [Ciprofloxaci* Hives - Contrast Dye Hives - Diltiazem Other: See Comments dizziness - Humira [Adalimumab] Other: See Comments throat swelling - Lantus [Insulin Gla* Swelling 11/2017: per patient, in 2009 experienced throat swelling with Lantus. Has previously used Levemir without problems. - Prednisone Other: See Comments Visual changes - Zithromax [Azithrom* Hives MEDICATIONS: atorvastatin (LIPITOR) 10 mg tablet, Take 1 tablet by mouth daily at bedtime. warfarin (COUMADIN) 5 mg tablet, Take 5 mg by mouth once daily. 7.5 mg Mon - Sat, 5 mg Sun only. furosemide (LASIX) 20 mg tablet, Take 1 tablet by mouth once daily for 30 doses. acetaminophen (TYLENOL) 325 mg tablet, Take 2 tablets by mouth every 6 hours as needed. aspirin, enteric coated (ASPIRIN, ENTERIC COATED) 81 mg EC tablet, Take 2 tablets by mouth once daily. lisinopril (ZESTRIL, PRINIVIL) 10 mg tablet, Take 1 tablet by mouth once daily. magnesium oxide (MAG-OX) 400 mg tablet, Take 1 tablet by mouth twice daily. calcitriol (ROCALTROL) 0.25 mcg capsule, Take 0.25 mcg by mouth every 48 hours. clonazePAM (KLONOPIN) 1 mg tablet, Take 1 mg by mouth daily at bedtime. levothyroxine (SYNTHROID) 50 mcg tablet, Take 50 mcg by mouth once daily. hydroxychloroquine (PLAQUENIL) 200 mg tablet, Take 400 mg by mouth once daily. folic acid 1 mg tablet, Take 1 mg by mouth once daily. sertraline hcl(ZOLOFT 50 MG TAB), Take one(1) tablet daily. REVIEW OF SYSTEMS: PAIN ASSESSMENT: Negative for pain, history of chronic pain, or current treatment for a chronic pain condition. GENERAL: Negative for: Weight loss or gain, Fever or Chills, Weakness and Sleep difficulties. 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 General: Well appearing, in no acute distress, speaking in complete sentences. Skin: No clubbing, no cyanosis. Eyes: Extra ocular movements intact, Non-icteric sclerae Neck: no jugular venous distention, Lungs: Clear to auscultation bilaterally, no wheezing or rhonchi. Heart: Regular rhythm, S1, S2 normal, Gr I/ systolic murmur upper sternal borders; no loud rubs Extremities: No peripheral edema . Grade 2/4 distal pulses bilaterally. Neuro: Oriented to person, place and time, alert, cooperative, gait coordinated. CARDIOVASCULAR MEDICINE TESTING: Electrocardiogram: Sinus rhythm 61 bpm; normal conduction intervals (ID 152 ms, QRS 88 ms); septal infarct pattern I have personally reviewed the Electrocardiogram. ASSESSMENT/PLAN: 1. Paroxysmal atrial fibrillation (HCC) - ICD9: 427.31, ICD10: I48.0 (primary diagnosis) Recurrent; not severely symptomatic in itself but control of the rapid ventricular response rates has been challenging due to sinus bradycardia (sick sinus syndrome aka tachycardia-bradycardia syndrome) 2. Palpitations - ICD9: 785.1, ICD10: R00.2 3. Tachycardia-bradycardia syndrome (HCC) - ICD9: 427.81, ICD10: I49.5 Seems to have substantial tachycardia-bradycardia syndrome, involving atrial fibrillation with rapid ventricular response rates alternating with sinus bradycardia that has been exacerbated by ventricular rate controlling medications for the AF 4. Nonrheumatic aortic valve stenosis - ICD9: 424.1, ICD10: I35.0 Severe s/p AVR 11/2017 5. S/P AVR (aortic valve replacement) and aortoplasty - ICD9: V43.3, ICD10: Z95.2 See below 6. Presence of prosthetic heart valve - ICD9: V43.3, ICD10: Z95.2 bioprosthetic AVR 11/2017 7. Dyspnea on exertion - ICD9: 786.09, ICD10: R06.09 8. 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 Anticoagulated with warfarin - ICD9: V58.83, V58.61, ICD10: Z51.81, Z79.01 indication: stroke prevention AF; risk:benefit of oral anticoagulation therapy seems favorable IMPRESSION: Ms. Brito has been having recurrent paroxysmal atrial fibrillation since the valve surgery procedure in November 2017. She does not seem to have severe symptoms from the atrial fibrillation, but ventricular rate control has been challenging due to the tendency for sinus bradycardia that has been exacerbated by the ventricular rate controlling medications. Multiple such medications have been discontinued due to bradycardia and/or intolerance, including beta blockers and non-dihydropyridine calcium channel blockers. I doubt that we are going to be able to control the rapid ventricular response rates to the atrial fibrillation without the support and protection of a cardiac pacemaker. With such backup, the rate controlling medications could be prescribed more effectively. This would most likely alleviate any bothersome symptoms from the atrial arrhythmias. I do not feel at this point that antiarrhythmic drug therapy is indicated. Such therapy might be indicated if she continued to have excessively bothersome symptoms from atrial fibrillation despite adequate ventricular rate control. I also do not feel that more aggressive measures to treat the atrial fibrillation are warranted at this time, such as AF catheter ablation. I had a detailed discussion with Ms. Brito regarding my evaluation and recommendations. After our discussion, Ms. Brito expressed her understanding and I answered all her questions to her apparent satisfaction. She seemed to agree with the concept of the potential benefit of cardiac pacing. I told her that I would send a note to her chronometer tester, Dr. Allen, and also try to discuss the case with him directly to get his feedback and opinion. INFORMED CONSENT The risks, benefits and anticipated outcomes of the procedure, the risks and benefits of the alternatives to the procedure and the roles and tasks of the personnel to be involved were discussed with the patient. She will likely proceed after I discuss with Dr. Allen. PLAN AND RECOMMENDATIONS: Plan as outlined above. Discuss case with Dr. Allen. Return if symptoms worsen or fail to improve. She will continue to follow up with Dr. Allen. Follow up with me will be determined depending upon the plan of care. Harper Hernandez MD 08/24/2018 Harper Hernandez MD 08/24/2018 10:51 AM Signed Atrial Fibrillation What is atrial fibrillation? Atrial fibrillation (also called A-fib) is a fast or irregular heartbeat that starts in the upper chambers of the heart. The abnormal heartbeat affects the ability of the heart to pump blood to the rest of the body. What is the cause? An electrical signal in your heart starts each heartbeat, causing the heart muscle to squeeze (contract). Normally, this signal starts in the upper right chamber of the heart (the right atrium) at a place called the sinus node. The signal then follows normal pathways to the upper left atrium and to the lower chambers of the heart (the ventricles). When you have atrial fibrillation, electrical signals don?t start in the normal place in the right atrium and don?t travel normally. This can cause the upper chambers of the heart (atria) to beat very fast and not in a normal pattern. Common causes of heart rhythm problems are conditions that damage the heart, like coronary artery disease, heart attack, or heart failure. Problems with the heart valves are another common cause. The heart has 4 valves that open and close with each heartbeat to help blood flow in the right direction through the heart. Other causes of atrial fibrillation include: -Health problems, such as a stroke, lung disease, diabetes, overactive thyroid gland, or high blood pressure -Abuse of alcohol or drugs, such as cocaine Sometimes no cause can be found. What are the symptoms? Some people don?t have any symptoms. When atrial fibrillation does cause symptoms, the most common ones are: -Feeling like your heart is beating too fast or too hard or skipping beats or fluttering -Feeling tired or weak all the time Symptoms that are more serious include: -Chest pain -Trouble breathing -Lightheadedness or dizziness -Confusion How is it diagnosed? Your healthcare provider will ask about your symptoms and medical history and examine you. Tests may include: -An ECG (also called an EKG), which measures and records your heartbeat. You may have an ECG while you are resting or while you exercise on a treadmill. You may also be asked to wear a small portable ECG monitor for a few days or sometimes a couple weeks. -Blood tests -An echocardiogram, which uses sound waves (ultrasound) to show the structures of the heart, like the valves How is it treated? The goal of treatment is to help the heart keep a normal rhythm. Your treatment depends on the cause of the atrial fibrillation, how often you have symptoms, and the severity of your symptoms. If you have no symptoms, or your symptoms are fairly mild, you may not need treatment. For some people atrial fibrillation lasts just a short time and the heart goes back to a normal rhythm on its own. If you keep having spells of atrial fibrillation, treatment may help keep you from having so many spells. If a health problem like a leaky heart valve is causing the atrial fibrillation, treating the health problem may also treat the fast or irregular heartbeat. Other possible treatments are: -Medicine: Your provider may prescribe medicine to slow or restore a normal heart rate and rhythm. You may also need medicine to prevent blood clots because when the heart beats irregularly, some of the blood can stay in the upper chambers too long. This makes it easier for blood clots to form, increasing your risk of having a stroke or heart attack. -Electrical cardioversion: First, you will be given medicine called anesthesia to keep you from feeling pain during the procedure. Then your chest will be given an electrical shock. The electrical shock should make your heart start beating normally again. You may need medicine to keep your heart rhythm normal after this procedure. -Ablation: Ablation is a procedure that uses a small tube called a catheter to deliver energy to the inside of the heart. The energy (usually radio waves) scars small areas of heart tissue. The scars block abnormal electrical pathways and help you have a normal heart rhythm. With some types of ablation treatment, you will also need a pacemaker. A pacemaker is an electronic device put under the skin of your chest to help control the heartbeat. How can I take care of myself? -Take your medicines as prescribed. -Keep your appointments for follow-up blood tests. -Make sure your healthcare provider knows about changes in your diet or medical condition. Your provider also needs to know about all prescription and nonprescription medicines, herbs, or supplements that you are taking. Some medicines may interact with your heart medicine or increase your risk for atrial fibrillation. -If you want to drink alcohol, ask your provider how much is safe for you to drink. -Follow your healthcare provider's instructions. Ask your provider: ?How and when you will hear your test results ?How long it will take to recover ?What activities you should avoid and when you can return to your normal activities ?How to take care of yourself at home ?What symptoms or problems you should watch for and what to do if you have them -Make sure you know when you should come back for a checkup. How can I help prevent atrial fibrillation? The best prevention is to have a heart-healthy lifestyle. -Keep a healthy weight. -Eat a healthy diet that is low in sodium and saturated and trans fat. -Stay fit with the right kind of exercise for you. -Decrease stress. -Don?t smoke. -Limit your use of alcohol. If you have heart disease or high blood pressure, follow your healthcare provider's instructions for treatment. Developed by [employer]. Published by [employer]. Copyright ?2013 [employer] and/or one of its subsidiaries. All rights reserved. Referring Provider: TAZ ALLEN [[id number]] Allergies As of Date: 08/24/2018 Noted Allergy Reaction AMIODARONE 08/09/2018 14 - Other: See Comments Comments: Unclear but medication not given due to intolerance or predicted intolernace CIPRO (CIPROFLOXACIN) 11/26/2008 4 - Hives CONTRAST DYE 01/01/2009 4 - Hives DILTIAZEM 08/09/2018 14 - Other: See Comments Comments: dizziness HUMIRA (ADALIMUMAB) 11/16/2017 14 - Other: See Comments Comments: throat swelling LANTUS (INSULIN GLARGINE) 01/01/2009 7 - Swelling Comments: 11/2017: per patient, in 2009 experienced throat swelling with Lantus. Has previously used Levemir without problems. PREDNISONE 08/09/2018 14 - Other: See Comments Comments: Visual changes ZITHROMAX (AZITHROMYCIN) 01/01/2009 4 - Hives Date Reviewed: 08/24/2018 Reviewed by: Harper Hernandez - Fully Assessed Reason for Visit: New Patient [172] Primary Visit Diagnosis:Paroxysmal atrial fibrillation (HCC) [I48.0] Other Visit Diagnoses:Palpitations [R00.2] Tachycardia-bradycardia syndrome (HCC) [I49.5] Nonrheumatic aortic valve stenosis [I35.0] S/P AVR (aortic valve replacement) and aortoplasty [Z95.2] Presence of prosthetic heart valve [Z95.2] Dyspnea on exertion [R06.09] At risk for stroke [Z91.89] [facility] current use of anticoagulant therapy [Z79.01] Anticoagulated with warfarin [Z51.81, Z79.01] Order(s):EKG WITH INTERPRETATION [46298KIO] Order #: [id number]: 1 Prescriptions as of 08/24/2018 Sig: ATORVASTATIN 10 MG TABLET Take 1 tablet by mouth daily * WARFARIN 5 MG TABLET Take 5 mg by mouth once daily* FUROSEMIDE 20 MG TABLET Take 1 tablet by mouth once d* Patient taking differently: Take 40 mg by mouth once nelia* ACETAMINOPHEN 325 MG TABLET Take 2 tablets by mouth every* Patient taking differently: Take 650 mg by mouth every 6 * ASPIRIN 81 MG TABLET,DELAYED * Take 2 tablets by mouth once * Patient taking differently: Take 81 mg by mouth once nelia* LISINOPRIL 10 MG TABLET Take 1 tablet by mouth once d* MAGNESIUM OXIDE 400 MG (241.3* Take 1 tablet by mouth twice * CALCITRIOL 0.25 MCG CAPSULE Take 0.25 mcg by mouth every * CLONAZEPAM 1 MG TABLET Take 1 mg by mouth daily at b* LEVOTHYROXINE 50 MCG TABLET Take 50 mcg by mouth once walter* HYDROXYCHLOROQUINE 200 MG TAB* Take 400 mg by mouth once walter* FOLIC ACID 1 MG TABLET Take 1 mg by mouth once daily. * ZOLOFT 50 MG TABLET Take one(1) tablet daily. Medication notes this encounter METOPROLOL TARTRATE 25 MG TABLET >> Rubén Stewart MA 08/24/2018 9:08 AM >> RUBÉN STEWART MA Ratna Aug 24, 2018 9:08 AM Not taking DILTIAZEM 120 MG TABLET >> Rubén Stewart MA 08/24/2018 9:08 AM >> RUBÉN STEWART MA Ratna Aug 24, 2018 9:08 AM Not taking SENNOSIDES 8.6 MG-DOCUSATE SODIUM 50 MG TABLET >> Rubén Stewart MA 08/24/2018 9:08 AM >> RUBÉN STEWART MA Ratna Aug 24, 2018 9:08 AM Not taking HYDROCHLOROTHIAZIDE 25 MG TABLET >> Rubén Stewart MA 08/24/2018 9:08 AM >> RUBÉN STEWART MA Ratna Aug 24, 2018 9:08 AM Not taking Problem List As Of Date 08/24/2018 Noted Resolved Nonrheumatic aortic valve stenosis [I35.0] INVALID FOR* More... Obesity, Class III, BMI >= 40 E66.01 [E66.01] INVALID FOR* S/P AVR (aortic valve replacement) and aortopla*INVALID FOR* Secondary pulmonary arterial hypertension (HCC)* Chronic kidney disease, stage 4 (severe) (HCC) *INVALID FOR* Dyspnea on exertion [R06.09] INVALID FOR* Hypothyroidism [E03.9] INVALID FOR* Type 2 diabetes mellitus without complications *INVALID FOR* History of eye disorder [Z86.69] INVALID FOR* [facility] current use of anticoagulant therapy *INVALID FOR* Palpitations [R00.2] INVALID FOR* Paroxysmal atrial fibrillation (HCC) [I48.0] INVALID FOR* Atrial fibrillation (HCC) [I48.91] INVALID FOR*08/24/2018 Presence of prosthetic heart valve [Z95.2] INVALID FOR* At risk for stroke [Z91.89] More... Anticoagulated with warfarin [Z51.81, Z79.01] Tachycardia-bradycardia syndrome (HCC) [I49.5] Other instructions from your clinician: Atrial Fibrillation What is atrial fibrillation? Atrial fibrillation (also called A-fib) is a fast or irregular heartbeat that starts in the upper chambers of the heart. The abnormal heartbeat affects the ability of the heart to pump blood to the rest of the body. What is the cause? An electrical signal in your heart starts each heartbeat, causing the heart muscle to squeeze (contract). Normally, this signal starts in the upper right chamber of the heart (the right atrium) at a place called the sinus node. The signal then follows normal pathways to the upper left atrium and to the lower chambers of the heart (the ventricles). When you have atrial fibrillation, electrical signals don?t start in the normal place in the right atrium and don?t travel normally. This can cause the upper chambers of the heart (atria) to beat very fast and not in a normal pattern. Common causes of heart rhythm problems are conditions that damage the heart, like coronary artery disease, heart attack, or heart failure. Problems with the heart valves are another common cause. The heart has 4 valves that open and close with each heartbeat to help blood flow in the right direction through the heart. Other causes of atrial fibrillation include: -Health problems, such as a stroke, lung disease, diabetes, overactive thyroid gland, or high blood pressure -Abuse of alcohol or drugs, such as cocaine Sometimes no cause can be found. What are the symptoms? Some people don?t have any symptoms. When atrial fibrillation does cause symptoms, the most common ones are: -Feeling like your heart is beating too fast or too hard or skipping beats or fluttering -Feeling tired or weak all the time Symptoms that are more serious include: -Chest pain -Trouble breathing -Lightheadedness or dizziness -Confusion How is it diagnosed? Your healthcare provider will ask about your symptoms and medical history and examine you. Tests may include: -An ECG (also called an EKG), which measures and records your heartbeat. You may have an ECG while you are resting or while you exercise on a treadmill. You may also be asked to wear a small portable ECG monitor for a few days or sometimes a couple weeks. -Blood tests -An echocardiogram, which uses sound waves (ultrasound) to show the structures of the heart, like the valves How is it treated? The goal of treatment is to help the heart keep a normal rhythm. Your treatment depends on the cause of the atrial fibrillation, how often you have symptoms, and the severity of your symptoms. If you have no symptoms, or your symptoms are fairly mild, you may not need treatment. For some people atrial fibrillation lasts just a short time and the heart goes back to a normal rhythm on its own. If you keep having spells of atrial fibrillation, treatment may help keep you from having so many spells. If a health problem like a leaky heart valve is causing the atrial fibrillation, treating the health problem may also treat the fast or irregular heartbeat. Other possible treatments are: -Medicine: Your provider may prescribe medicine to slow or restore a normal heart rate and rhythm. You may also need medicine to prevent blood clots because when the heart beats irregularly, some of the blood can stay in the upper chambers too long. This makes it easier for blood clots to form, increasing your risk of having a stroke or heart attack. -Electrical cardioversion: First, you will be given medicine called anesthesia to keep you from feeling pain during the procedure. Then your chest will be given an electrical shock. The electrical shock should make your heart start beating normally again. You may need medicine to keep your heart rhythm normal after this procedure. -Ablation: Ablation is a procedure that uses a small tube called a catheter to deliver energy to the inside of the heart. The energy (usually radio waves) scars small areas of heart tissue. The scars block abnormal electrical pathways and help you have a normal heart rhythm. With some types of ablation treatment, you will also need a pacemaker. A pacemaker is an electronic device put under the skin of your chest to help control the heartbeat. How can I take care of myself? -Take your medicines as prescribed. -Keep your appointments for follow-up blood tests. -Make sure your healthcare provider knows about changes in your diet or medical condition. Your provider also needs to know about all prescription and nonprescription medicines, herbs, or supplements that you are taking. Some medicines may interact with your heart medicine or increase your risk for atrial fibrillation. -If you want to drink alcohol, ask your provider how much is safe for you to drink. -Follow your healthcare provider's instructions. Ask your provider: ?How and when you will hear your test results ?How long it will take to recover ?What activities you should avoid and when you can return to your normal activities ?How to take care of yourself at home ?What symptoms or problems you should watch for and what to do if you have them -Make sure you know when you should come back for a checkup. How can I help prevent atrial fibrillation? The best prevention is to have a heart-healthy lifestyle. -Keep a healthy weight. -Eat a healthy diet that is low in sodium and saturated and trans fat. -Stay fit with the right kind of exercise for you. -Decrease stress. -Don?t smoke. -Limit your use of alcohol. If you have heart disease or high blood pressure, follow your healthcare provider's instructions for treatment. Developed by [employer]. Published by [employer]. Copyright ?2014 [employer] and/or one of its subsidiaries. All rights reserved. Visit Notes: >> Rubén Stewart Ratna Aug 24, 2018 9:09 AM Status: Signed No cardiac complaints today. Rubén Stewart, RMYusuf. Medications Discontinued During This Encounter hydroCHLOROthiazide (HYDRODIURIL, ES* 08/24/2018 Class: Historical Med Route: ORAL Sig: Take 25 mg by mouth once daily. Disc: Course of therapy completed warfarin (COUMADIN) 2.5 mg tablet 60 t* 2 12/04/2017 08/24/2018 Class: Print RX Route: ORAL Sig: Take 1 tablet by mouth daily as directed. Take 5 mg today, then 2.5 mg daily. Disc: Course of therapy completed senna-docusate (SENNA-S) 8.6-50 mg p* 60 t* 1 12/04/2017 08/24/2018 Class: Print RX Route: ORAL Sig: Take 1 tablet by mouth twice daily. Disc: Course of therapy completed diltiazem (CARDIZEM) 120 mg tablet 60 t* 3 12/09/2017 08/24/2018 Class: Print RX Route: ORAL Sig: Take 1 tablet by mouth twice daily. Disc: Course of therapy completed metoprolol tartrate, short acting, (* 12/26/2017 08/24/2018 Class: Historical Med Route: ORAL Sig: Take 12.5 mg by mouth twice daily. Disc: Course of therapy completed Disposition: Return if symptoms worsen or fail to improve. Follow-up and Disposition History Recorded Letter Text Encounter Status:Closed by HARPER HERNANDEZ MD on 08/24/18 PROTHROMBIN TIME W/INR Collected: 08/22/2018 Status: F Source: [place] 10:47 AM [facility] REPOSITORY TYPE CODE TESTS RESULT OUT OF RANGE REFERENCE UNITS LAB L300.4150 11.7-14.9 SECONDS High PROTIME 26.9 LAB L300.4200 Normal INR 2.5 Performed By: #### L300.3900 #### [facility] [address] [place], [place], [address] PROTHROMBIN TIME W/INR Collected: 08/08/2018 Status: F Source: [place] 12:23 PM [facility] REPOSITORY TYPE CODE TESTS RESULT OUT OF RANGE REFERENCE UNITS LAB L300.4150 11.7-14.9 SECONDS High PROTIME 21.4 LAB L300.4200 Normal INR 1.9 Performed By: #### L300.3900 #### [facility] [address] [place], [address] PROTHROMBIN TIME W/INR Collected: 07/25/2018 Status: F Source: [place] 11:59 AM [facility] REPOSITORY TYPE CODE TESTS RESULT OUT OF RANGE REFERENCE UNITS LAB L300.4150 11.7-14.9 SECONDS High PROTIME 23.8 LAB L300.4200 Normal INR 2.1 Performed By: #### L300.3900 #### [facility] [address] [place], [place], [address] PROTHROMBIN TIME W/INR Collected: 07/14/2018 Status: F Source: REY 12:32 PM [facility] REPOSITORY TYPE CODE TESTS RESULT OUT OF RANGE REFERENCE UNITS LAB L300.4150 11.7-14.9 SECONDS High PROTIME 22.0 LAB L300.4200 Normal INR 1.9 Performed By: #### L300.3900 #### [facility] [address] [place], [address] PROTHROMBIN TIME W/INR Collected: 07/04/2018 Status: F Source: [place] 11:58 AM [facility] REPOSITORY TYPE CODE TESTS RESULT OUT OF RANGE REFERENCE UNITS LAB L300.4150 11.7-14.9 SECONDS High PROTIME 20.8 LAB L300.4200 Normal INR 1.8 Performed By: #### L300.3900 #### [facility] [address] [facility] [place], [address] 12 LEAD ELECTROCARDIOGRAM Observed: 07/03/2018 Status: F Source: REY 3:49 PM [facility] REPOSITORY [facility] Cardiovascular Services [address] [place] [address] 12 Lead EKG 06/26/18 1837 MR#: [id number] Acct: [id number] Name: GRACIELA BRITO Rep #: [id number] : 1950 68 From: Angel Villalobos MD Attending Dr: Status: DEP ER Ordering Dr: Darin Ramirez MD Date: 06/26/18 Location: ED Sex: F C Admitted: Test Reason : PALPITATIONS Blood Pressure : / mmHG Vent. Rate : 149 BPM Atrial Rate : 150 BPM P-R Int : 000 ms QRS Dur : 098 ms QT Int : 300 ms P-R-T Axes : 000 -21 117 degrees QTc Int : 472 ms Atrial fibrillation with rapid ventricular response Septal infarct , age undetermined ST AND T wave abnormality, consider lateral ischemia Abnormal ECG Confirmed by ANGEL VILLALOBOS MD ([id number]), newspaper copy editor DIANE NAVARRETE ([id number]) on 07/03/2018 3:48:28 PM Referred By: SILVIANO VERGARA Confirmed By:ANGEL VILLALOBOS MD 07/03/18 1548 Date Angel Villalobos MD CC: Darin Ramirez MD; Bird Garza MD Signed 12 LEAD ELECTROCARDIOGRAM Observed: 06/29/2018 Status: F Source: [place]Y 1:35 PM [facility] Cardiovascular Services [address] [place] [address] 12 Lead EKG 06/26/181954 MR#: [id number] Acct: [id number] Name: GRACIELA BRITO Rep #: [id number] : 1950 68 From: Bird Chery MD Attending Dr: Status: DEP ER Ordering Dr: Darin Ramirez MD Date: 06/26/18 Location: ED Sex: F C Admitted: Test Reason : REPEAT Blood Pressure : / mmHG Vent. Rate : 082 BPM Atrial Rate : 300 BPM P-R Int : 000 ms QRS Dur : 084 ms QT Int : 362 ms P-R-T Axes : 000 -01 109 degrees QTc Int : 422 ms Atrial fibrillation Septal infarct , age undetermined T wave abnormality, consider lateral ischemia Abnormal ECG Confirmed by JR JORDAN, BIRD ([id number]), newspaper copy editor DIANE NAVARRETE ([id number]) on 06/29/2018 1:35:24 PM Referred By: SILVIANO VERGARA Confirmed By:BIRD CHERY MD 06/29/18 1335 Date Bird Chery MD CC: Darin Ramirez MD; Bird Garza MD Signed EMERGENCY DEPARTMENT Observed: 06/27/2018 Status: F Source: REY SUMMARY 12:20 AM [facility] Medical Records Department [address] [place] [address] Emergency Department Summary 06/26/181911 MR#: [id number] Acct: [id number] Name: GRACIELA BRITO Rep #: [id number] : 1950 68 From: Darin Ramirez MD PCP: Bird Garza MD Status: DEP ER - ER Visit Summary Date of Service: 06/26/18 Chief Complaint: Accelerated heart rate History of Present Illness: The patient is a 68 F known history of A. fib, diet-controlled diabetes and prior aortic valve replaced with a bovine valve. Also renal insufficiency. Patient states at 6 PM tonight she had accelerated heart rate. Denies any chest pain. Physical Examination: Well-appearing older female. Vital signs are stable except for heart rate 141. Obviously A. fib RVR on the monitor. H EENT exam unremarkable. Neck nontender. Lungs clear to auscultation bilaterally. Heart irregularly irregular rate of 140s. Abdomen soft and nontender. Normal bowel sounds no peritoneal signs. Moving all 4 extremities. Calves nontender without edema. Neurologically she is awake and alert. Test Results: Chest x-ray portable one view no acute process. Borderline cardiomegaly. Read both by myself and the radiologist. CBC normal. White count 9. Hemoglobin 12. Chemistries unremarkable. Gap of 8. Creatinine 1.38 with a history of renal insufficiency. INR 1.8. Troponin less than 0.015. EKG A. fib RVR rate of 149 initially. A repeat EKG was done after IV Cardizem and showed A. fib rate of 82. No signs of MN. Emergency Department Course and Treatment: Pt. with A. fib RVR. Will be started on IV Cardizem. Cardizem. She has cardioverted spontaneously to a sinus rhythm. Currently her rate is in the 80s. At 2130. She is been in a sinus rhythm for an hour. Has no complaints. Wants to be discharged home. Treatment Plan: I spoke with Dr. Villalobos of cardiology. He and I and the patient all chondral with her being discharged home. She will follow-up with the office tomorrow. Disposition: Discharge Impression: Recurrent atrial fibrillation with RVR Anticoagulated on Coumadin History of prior bovine aortic valve replacement This note was generated with [employer] dictation software. It may contain incorrect words, spelling, and punctuation that were not noted in review of the chart prior to signing ED Disposition - Plan for ED Patient: Chief Complaint: Palpitations Referrals: Bird Garza MD [Primary Care Provider] - What to do if you have Problems For any increased pain, shortness of breath, bleeding, nausea or vomiting, chest pain, or any unexpected problems, contact your Primary Care Provider. Call [facility] ([phone]) or report to the closest Emergency Room. Call 911 if necessary. 06/27/18 0020 <Electronically signed by Darin Ramirez MD> Date Darin Ramirez MD Cosigner Signature (If Indicated): Date CC: Bird Garza MD DISCHARGE INSTRUCTION Observed: 06/27/2018 Status: F Source: [place] 12:19 AM [facility] REPOSITORY [facility] Medical Records Department [address] [place] [address] Discharge Instruction 06/26/18 2143 MR#: [id number] Acct: [id number] Name: GRACIELA BRITO Rep #: [id number] : 1950 68 From: Darin Ramirez MD PCP: Bird Garza MD Status: DEP ER ED Disposition - Plan for ED Patient: Disposition: Home or Assisted Living Chief Complaint: Palpitations Instructions: ED Afib Referrals: Taz Allen MD [STAFF PHYSICIAN] - 1 Day Additional Instructions: Continue current medications. Follow-up with your chronometer tester office tomorrow. Return if worse. What to do if you have Problems For any increased pain, shortness of breath, bleeding, nausea or vomiting, chest pain, or any unexpected problems, contact your Primary Care Provider. Call [facility] ([phone]) or report to the closest Emergency Room. Call 911 if necessary. 06/27/18 0019 <Electronically signed by Darin Ramirez MD> Date Darin Ramirez MD Cosigner Signature (If Indicated): Date CC: Bird Garza MD CHEST 1 VIEW Observed: 06/26/2018 Status: F Source: REY (PORTABLE) 6:47 PM [facility] REPOSITORY [facility] Imaging Services [address] [place] [address] Chest 1 View (Portable) MR#: [id number] Acct: [id number] Name: GRACIELA BRITO Rep #: [id number] : 1950 F 68 From: Arlene Sargent MD PCP: Bird Garza MD Status: REG ER Study: Chest 1 View (Portable) Date of Exam: 06/26/18 Exam# [id number] Ordering Dr: Darin Ramirez MD STUDY: X-RAY CHEST REASON FOR EXAM: Female, 68 years old. Atrial fibrillation TECHNIQUE: A single frontal view of the chest was obtained. COMPARISON: April 07, 2018 FINDINGS: The lungs are adequately aerated. There are no focal airspace opacities. There is no demonstrated pleural abnormality. There is mild enlargement of the cardiac silhouette. Sternotomy wires are present. The mediastinum and hilar regions are unremarkable. Normal visualized pulmonary arteries. There is atherosclerotic calcification of the thoracic aorta. There are diffuse degenerative changes of the visualized spine. There are degenerative changes in both shoulders. There is no demonstrated abnormality of the visualized upper abdomen. RAD/Chest 1 View (Portable) IMPRESSION: No acute cardiopulmonary abnormalities. There is stable mild enlargement of the cardiac silhouette without pulmonary edema or pleural effusion. Electronically Signed: Arlene Sargent MD at 19:19 EDT Tel Direct: [phone], Service support , CC: Darin Ramirez MD; Bird Garza MD Interventional Pain Physician: Signed CBC W/DIFF, AUTOMATED Collected: 06/26/2018 Status: F Source: [place] 6:40 PM [facility] REPOSITORY TYPE CODE TESTS RESULT OUT OF RANGE REFERENCE UNITS LAB L100.1000 4.4-11.0 K/mm3 Normal WBC 9.4 LAB L100.1200 4.2-5.4 M/mm3 Low RBC 4.07 LAB L100.1300 12.0-15.0 g/dl Normal HGB 12.5 LAB L100.1400 37-47 % Normal HCT 39.3 LAB L100.1500 81-99 fL Normal MCV 96.6 LAB L100.1600 27.0-32.0 pg Normal MCH 30.7 LAB L100.1700 32-36 g/gl Low MCHC 31.8 LAB L100.1810 11.6-14.6 % High RDW CV 16.2 LAB L100.1820 35.1-43.9 fl High RDW SD 55.4 LAB L100.1900 150-450 K/mm3 Normal PLT 202 LAB L100.2000 6.2-12.0 fl Normal MPV 10.1 LAB L100.2100 47-70 % Normal NEUT% 68.2 LAB L100.2200 19-41 % Normal LY% 24.0 LAB L100.2300 0-10 % Normal MONO% 6.1 LAB L100.2400 0-5 % Normal EO% 1.1 LAB L100.2500 0-1 % Normal BASO% 0.4 LAB L100.2550 0.0-0.9 % Normal IM GRAN % 0.200 Result Comment: IG% - Immature Granulocytes (promyelocytes, myelocytes and metamyelocytes) > 1% indicates that a LEFT SHIFT is Present. LAB L100.2620 2.0-7.7 X10 3/uL Normal Absolute Neut 6.4 LAB L100.2720 0.83-4.51 X10 3/ul Normal Absolute Lymph 2.25 Performed By: #### L100.0100 #### [facility] [address] [place], [place], [address] PROTHROMBIN TIME W/INR Collected: 06/26/2018 Status: F Source: [place] 6:40 PM [facility] REPOSITORY TYPE CODE TESTS RESULT OUT OF RANGE REFERENCE UNITS LAB L300.4150 11.7-14.9 SECONDS High PROTIME 21.1 LAB L300.4200 Normal INR 1.8 Performed By: #### L300.3900 #### [facility] [address] [place], [address] BASIC METABOLIC Collected: 06/26/2018 Status: F Source: REY PROFILE (BMP) 6:40 PM [facility] REPOSITORY TYPE CODE TESTS RESULT OUT OF RANGE REFERENCE UNITS LAB L501.0100 74-106 mg/dL High GLU 132 Result Comment: Fasting Glucose result greater than or equal to 126 mg/dL suggests DIABETES MELLITUS per A.D.A. criteria. Please note revised GLUCOSE reference range effective 2017. LAB L501.1000 7-18 mg/dL High BUN 22 LAB L501.1100 0.55-1.02 mg/dL High CREAT,SERUM 1.38 Result Comment: The validity of the calculated GFR AND GFRAA in patients over 70 years has not been determined. Clinical correlation is essential. LAB L501.1110 >60 mL/min Low EST GFR 41 Result Comment: Non- GFR Calc LAB L501.1115 >60 mL/min Low EST GFR - AA 49 Result Comment: GFR Calc LAB L501.1255 ml/min Normal Estimated CRCL 56.37 LAB L501.1300 10-20 RATIO Normal BUN/CRE 15.9 LAB L501.2200 8.5-10 mg/dL Normal .1 CA 8.9 LAB L501.5300 136-14 mmol/L Normal 5 NA 139 LAB L501.5600 3.5-5. mmol/L Normal 1 K 3.9 Result Comment: Slight Hemolysis, Result may be falsely increased. LAB L501.5900 98-107 mmol/L Normal CL 102 LAB L501.6100 21.0-32.0 mmol/L Normal CO2 29.0 LAB L501.6200 5-15 Normal 8 GAP Performed By: #### L500.2500, L501.4010 #### [facility] [address] [place], [address] TROPONIN-I Collected: 06/26/2018 Status: F Source: [place] 6:40 PM [facility] REPOSITORY TYPE CODE TESTS RESULT OUT OF RANGE REFERENCE UNITS LAB L501.4010 <0.045 ng/mL Normal < 0.015 TROPONIN-I Result Comment: TROPONIN-I EXPECTED VALUES <0.045 Negative 0.045 - 0.590 Consistent with Cardiac Damage > OR = 0.600 Critical Value Not every elevated troponin is indicative of MN. These values should be used with clinical judgement in examining the patient's clinical picture for diagnosis. To establish a diagnosis of MN versus myocardial injury, there must be a demonstrated rise and/or fall in the troponin values, in addition to ischemic symptoms, EKG changes, new regional wall motion abnormality, and/or angiographical evidence. PLEASE NOTE: REFERENCE RANGES EDITED 18 Performed By: #### L500.2500, L501.4010 #### [facility] [address] [place], [address] PROTHROMBIN TIME W/INR Collected: 06/20/2018 Status: F Source: [place] 12:07 PM [facility] REPOSITORY TYPE CODE TESTS RESULT OUT OF RANGE REFERENCE UNITS LAB L300.4150 11.7-14.9 SECONDS High PROTIME 18.1 LAB L300.4200 Normal INR 1.5 Performed By: #### L300.3900 #### [facility] [address] [place], [address] PROTHROMBIN TIME W/INR Collected: 06/09/2018 Status: F Source: [place] 11:12 AM [facility] REPOSITORY TYPE CODE TESTS RESULT OUT OF RANGE REFERENCE UNITS LAB L300.4150 11.7-14.9 SECONDS High PROTIME 19.1 LAB L300.4200 Normal INR 1.6 Performed By: #### L300.3900 #### [facility] [address] [place], [address] CARDIOLOGY VISIT Observed: 05/15/2018 Status: F Source: [place] REPORT 2:47 PM [facility] REPOSITORY [facility] [address] [place] [address] OFFICE VISIT Date of Service: 05/11/18 MR#: [id number] Acct: [id number] Name: GRACIELA BRITO Rep #: [id number] : 1950 Provider: Taz Allen MD Age/Sex: 68/F Location: [facility] Status: Signed HPI HPI Details: GRACIELA BRITO, is a 68 F who presents to the office today for Intake Vital Signs05/11/18 Body Mass Index (BMI) 43.0 05/11/18 Blood Pressure 100/42 05/11/18 Height 4 ft 9 in 05/11/18 Weight: 199 lb 05/11/18 Body Mass Index (BMI) 43.0 05/11/18 Blood Pressure 100/42 Intake Visit Reasons: 6 M FU Advertising Sales Agent Required: No Is patient in pain?: No Allergies amiodarone Allergy (Unknown, Verified 05/11/18 14:22) Unknown ciprofloxacin HCl [From Cipro] Allergy (Verified 05/11/18 14:22) Unknown insulin glargine, human recombin. a [From Lantus] Allergy (Verified 05/11/18 14:22) Unknown iodine Allergy (Verified 05/11/18 14:22) Hives prednisone Adverse Reaction (Severe, Verified 05/11/18 14:22) Visual changes, glaucoma benjamin Adverse Reaction (Severe, Uncoded 04/10/18 11:20) Neck pain AND tingling Medications Aspirin E.C. [Ecotrin] 162 mg PO DAILY@0800 09/21/16 [History Confirmed 05/11/18] Hydroxychloroquine [Plaquenil] 400 mg PO DAILY 09/21/16 [History Confirmed 05/11/18] Levothyroxine Sodium 50 mcg PO DAILY 09/21/16 [History Confirmed 05/11/18] Clonazepam [Klonopin] 1 mg PO QHS 07/18/17 [History Confirmed 05/09/18] Sertraline HCl [Zoloft] 50 mg PO DAILY 07/18/17 [History Confirmed 05/09/18] atorvastatin 10 mg tablet 10 mg PO QHS tab 12/12/17 [History Confirmed 05/11/18] calcitriol 0.25 mcg capsule 0.25 mcg PO QDAY 12/12/17 [History Confirmed 05/09/18] warfarin 2.5 mg tablet 2.5 mg PO .COMPLEX 01/09/18 [History Confirmed 05/11/18] warfarin 5 mg tablet 5 mg PO .COMPLEX #90 tab 01/24/18 [Rx Confirmed 05/11/18] lisinopril 5 mg tablet 5 mg PO DAILY #90 tab 02/16/18 [Rx Confirmed 05/11/18] magnesium oxide 400 mg tablet 400 mg PO BID #180 tab 03/06/18 [Rx Confirmed 05/11/18] ferrous sulfate 324 mg (65 mg iron) tablet,delayed release 324 mg PO BID #60 tab 03/31/18 [Rx Confirmed 05/11/18] omeprazole 20 mg tablet,delayed release 20 mg PO QDAY #30 tab 05/10/18 [Rx Confirmed 05/11/18] furosemide 40 mg tablet 40 mg PO DAILY 05/11/18 [History Confirmed 05/11/18] 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) Postoperative atrial fibrillation (Acute) Secondary pulmonary arterial hypertension (Chronic) Dyspnea (Chronic) Obesity (BMI 30.0-34.9) (Chronic) Central apnea (Chronic) Non-rheumatic aortic stenosis (Chronic) Surgical History History of right and left heart catheterization (Chronic 09/22/16) S/P AVR (aortic valve replacement) (Acute 11/28/17) Bilateral carpal tunnel syndrome (Chronic) History of partial hysterectomy (Chronic) History of right knee joint replacement (Chronic) History of tonsillectomy (Chronic) Hx of cholecystectomy (Chronic) Family History Brother CAD (coronary artery disease) CABG age 45 Father CAD (coronary artery disease) from [place] age 63 Mother Hypertension Cancer Sister Cancer Social History Smoking Status: Former smoker alcohol intake: current alcohol intake frequency: holidays/special occasions only Alcohol type: wine substance use type: does not use caffeine: Yes Type: coffee what type of physical activity do you participate in: none seatbelt use: always do you feel safe at home: Yes ROS Const Const: Positive for other (S/P AVR 11/28/17, chest pain Sat with atypical GERD like features); negative for fatigue, weakness, body ache, fever(s), headache(s), chills, frequent falls, night sweats, daytime sleepiness, difficulty sleeping, excessive sweating, weight gain, weight loss, increased appetite, poor appetite or anorexia Eyes Eyes: Negative for blind spots, loss of peripheral vision, transient loss of vision, blurry vision, change in vision, double vision, floaters, tunnel vision or other ENT ENT: Negative for headache(s), dizziness, hearing loss, tinnitus, Nosebleed/epistaxis, balance problems, post nasal drip, lip swelling, tongue swelling, bleeding gums, hoarseness, neck pain, dry mouth or other Cardio Chest Pain: Yes (Episode of chest pain after lying down, lasting one minute, 3 times) Frequency: other (just one night, 3 episode 2-3 minutes apart total of 3 times) Character: sharp Onset: other (When lying down) Location: other (left outer ribcage radiating to center) Duration: minutes Exacerbation: other (spontaneous) Relieving: other (spontaneous) Recurrence: other (no recurrence) Palpitations: Yes (Palpitations in the am a couple times recently) feels like its: fast Edema: None Muscle aches with walking: None Resp Respiratory: Negative for SOB with activity, SOB at rest, SOB orthopnea\SOB lying down, Coughing up blood/hemoptysis, chest congestion, pain on inspiration, snoring, stridor, wheezing, crackles, paroxysmal nocturnal dyspnea or other GI GI: Negative nausea, vomiting, heartburn, constipation, belching, bloating, cramping, vomiting blood/hematemesis, bright, red blood in stools, black,tarry stools, loose stools, Difficulty Swallowing or other : Negative for hematuria, frequent nighttime urination/ nocturia, erectile dysfunction or abnormal vaginal bleeding Musc Musc: Negative for balance problems, muscle aches/ myalgia, muscle weakness or joint pain Skin Skin: Negative redness, non-healing lesions, rash, unusual bruising, skin ulcer, wounds, jaundice or other Neuro Neuro: Negative for weakness, headache(s), frequent falls, blurry vision, double vision, dizziness, lightheadedness, near syncope, syncope, orthostatic symptoms, confusion, memory loss, restless legs, vertigo, seizures, lack of coordination or other Nguyễn Hematologic/Lymphatic: Negative for easy bleeding, easy bruising, enlarged lymph nodes or other Endo Endo: Negative for fatigue, excessive sweating, cold intolerance, heat intolerance, flushing, increased thirst/drinking, increased hunger, hair loss, hair growth or other Psych Psych: Negative for anxiety, depression, thoughts of harming anyone, thoughts of harming yourself, visual hallucinations, panic attacks or audible hallucinations Allergy Allergy/Immunology: Negative for lip swelling, Negative for tongue swelling, Negative for rash, Negative for throat swelling, Negative for hives Assessment AND Plan Medications New: Discontinued: Plan Detail Follow Up +6M (Alejandro) Coding Level of Care Code Off vis,est,level 3 Coding Level of Care Code Off vis,est,level 3 05/15/18 1447 <Electronically signed by Taz Allen MD> Date Taz Allen MD Cosigner Signature: Date (if applicable) CC: Bird Garza MD PROTHROMBIN TIME W/INR Collected: 05/12/2018 Status: F Source: [place] 11:01 AM [facility] REPOSITORY TYPE CODE TESTS RESULT OUT OF RANGE REFERENCE UNITS LAB L300.4150 11.7-14.9 SECONDS High PROTIME 25.2 LAB L300.4200 Normal INR 2.3 Performed By: #### L300.3900 #### [facility] [address] [place] [address]. [place], [address] CARDIOLOGY VISIT Observed: 05/11/2018 Status: F Source: [place] REPORT 2:45 PM [facility] REPOSITORY [facility] [address] [place] [address] OFFICE VISIT Date of Service: 05/11/18 MR#: [id number] Acct: [id number] Name: GRACIELA BRITO Rep #: [id number] : 1950 Provider: Taz Allen MD Age/Sex: 68/F Location: [facility] Status: Signed HPI HPI Chief Complaint: Routine f/u Details: GRACIELA BRITO, is a 68 F who presents to the office today for a cardiovascular outpatient follow-up. She has a history of severe aortic valve stenosis status post AVR with a 21 mm [place] trifecta valve [place] [address] Lester, small aortic root status post aortic root enlargement with autologous pericardium in November 2017, postoperative atrial fibrillation, hyperlipidemia, and sleep apnea with BiPAP therapy. Most recently patient was undergoing cardiac rehab and noted to look ill. She underwent laboratory work and an EKG. Her EKG showed a junctional rhythm. Her diltiazem was discontinued. She then had a repeat EKG after stopping her diltiazem that showed sinus bradycardia. Patient underwent a Holter monitor for 24 hours on 05/01/16 which basically showed rare PACs and 3 atrial couplets, no ventricular ectopy. She noted some lightheadedness and dizziness which did not correlate with the scan. On 05/06/18 the patient developed 3 episodes of atypical sharp left-sided rib pain in her fifth intercostal space which radiated to the center of her chest. These occurred on 3 separate episodes and have not returned since. Patient called our office yesterday to reported, and was prescribed omeprazole yesterday. Patient was prescribed omeprazole for reflux disease, and her symptoms have completely resolved. She does have a history of Sjogren's syndrome. A CRP was obtained which was 55.6. She denies any exertional chest pain, angina, shortness of breath or dyspnea on exertion. She continues to exercise by walking on a treadmill several times per week without difficulty In our office today her blood pressure is 100/42, pulse is 80 and regular. Her physical exam is as below. Her lipids as of 03/08/18 showed HDL of 45 and an LDL of 51. Intake Vital Signs05/11/18 Height 4 ft 9 in 05/11/18 Weight: 199 lb 05/11/18 Body Mass Index (BMI) 43.0 05/11/18 Blood Pressure 100/42 Intake Visit Reasons: 6 M FU Allergies amiodarone Allergy (Unknown, Verified 05/11/18 14:22) Unknown ciprofloxacin HCl [From Cipro] Allergy (Verified 05/11/18 14:22) Unknown insulin glargine, human recombin. a [From Lantus] Allergy (Verified 05/11/18 14:22) Unknown iodine Allergy (Verified 05/11/18 14:22) Hives prednisone Adverse Reaction (Severe, Verified 05/11/18 14:22) Visual changes, glaucoma benjamin Adverse Reaction (Severe, Uncoded 04/10/18 11:20) Neck pain AND tingling Medications Aspirin E.C. [Ecotrin] 162 mg PO DAILY@0800 09/21/16 [History Confirmed 05/11/18] Hydroxychloroquine [Plaquenil] 400 mg PO DAILY 09/21/16 [History Confirmed 05/11/18] Levothyroxine Sodium 50 mcg PO DAILY 09/21/16 [History Confirmed 05/11/18] Clonazepam [Klonopin] 1 mg PO QHS 07/18/17 [History Confirmed 05/09/18] Sertraline HCl [Zoloft] 50 mg PO DAILY 07/18/17 [History Confirmed 05/09/18] atorvastatin 10 mg tablet 10 mg PO QHS tab 12/12/17 [History Confirmed 05/11/18] calcitriol 0.25 mcg capsule 0.25 mcg PO QDAY 12/12/17 [History Confirmed 05/09/18] warfarin 2.5 mg tablet 2.5 mg PO .COMPLEX 01/09/18 [History Confirmed 05/11/18] warfarin 5 mg tablet 5 mg PO .COMPLEX #90 tab 01/24/18 [Rx Confirmed 05/11/18] lisinopril 5 mg tablet 5 mg PO DAILY #90 tab 02/16/18 [Rx Confirmed 05/11/18] magnesium oxide 400 mg tablet 400 mg PO BID #180 tab 03/06/18 [Rx Confirmed 05/11/18] ferrous sulfate 324 mg (65 mg iron) tablet,delayed release 324 mg PO BID #60 tab 03/31/18 [Rx Confirmed 05/11/18] omeprazole 20 mg tablet,delayed release 20 mg PO QDAY #30 tab 05/10/18 [Rx Confirmed 05/11/18] furosemide 40 mg tablet 40 mg PO DAILY 05/11/18 [History Confirmed 05/11/18] 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) Postoperative atrial fibrillation (Acute) Secondary pulmonary arterial hypertension (Chronic) Dyspnea (Chronic) Obesity (BMI 30.0-34.9) (Chronic) Central apnea (Chronic) Non-rheumatic aortic stenosis (Chronic) Surgical History History of right and left heart catheterization (Chronic 09/22/16) S/P AVR (aortic valve replacement) (Acute 11/28/17) Bilateral carpal tunnel syndrome (Chronic) History of partial hysterectomy (Chronic) History of right knee joint replacement (Chronic) History of tonsillectomy (Chronic) Hx of cholecystectomy (Chronic) Family History Brother CAD (coronary artery disease) CABG age 45 Father CAD (coronary artery disease) from [place] age 63 Mother Hypertension Cancer Sister Cancer Social History Smoking Status: Former smoker alcohol intake: current alcohol intake frequency: holidays/special occasions only Alcohol type: wine substance use type: does not use caffeine: Yes Type: coffee what type of physical activity do you participate in: none seatbelt use: always do you feel safe at home: Yes Cardiology Exam Const Appearance: cooperative, healthy appearing and no acute distress Nutritional Appearance: well nourished Orientation: alert, oriented x3 and oriented to person Head Head: normal to inspection, atraumatic and normocephalic Nose: external nose normal Face and Sinus: face symmetric Mouth: oral mucosae normal Eyes General: appearance normal, both eyes and all related structures Eyelids: eyelids normal Conjunctivae: conjunctivae normal Pupils: PERRL and normal by confrontation EOM: EOM intact bilaterally Neck Neck: normal visual inspection and full ROM Carotids: normal carotid upstroke Chest Chest inspection: normal inspection of the chest Auscultation: Bilateral: Clear to Auscultation Cardio Palpation: normal PMI Rate: regular rate Rhythm: regular rhythm Heart sounds: S1 normal and S2 normal GI GI: normal to inspection, no hepatosplenomegaly and bowel sounds present Neuro General: alert, oriented x3, awake, CN's II-XI intact bilaterally and moves all extremities Skin Skin: no rashes or lesions noted Extremities Pulses: Normal: Right Femoral Pulse, Left Femoral Pulse, Right Dorsalis Pedis Pulse, Left Dorsalis Pedis Pulse, Right Posterior Tibial Pulse, Left Posterior Tibial Pulse, Right Radial Pulse, Left Radial Pulse Lower Extremity Edema: None: Bilateral Psych Psychological: normal affect Assessment AND Plan 1. S/P AVR (aortic valve replacement) Z95.2 11/28/[address] #21 [facility] Trifecta AVR (bioprosthetic) with pericordial patch for aortic root dilatation, per Dr. Lester @ [facility] Plan 1. Status post AVR: The patient's repeat echocardiogram shows a stable appearing bioprosthetic aortic valve as evidenced in March 2018. Her chest pain symptoms per to be atypical in nature, may be a combination of her recent surgery, Sjogren's syndrome, or GI irritation. I recommended she decrease her baby aspirin to 81 mg from 162 mg daily. I do not believe she requires any additional evaluation at this time. She has no reproducible chest pain. Her blood pressure and heart rate are well-controlled. Recommend that she continue her Lasix, lisinopril. 2. Hypercholesterolemia: Her LDL and HDL cholesterol are fairly well-controlled. Continue Lipitor. 3. Return office in 6 months. This note was generated using a voice recognition system and there may be incorrect words, spelling or punctuation that were not noted when reviewing the office note prior to saving. Plan Detail Other Medications New: Discontinued: Follow Up +6M (Alejandro) Coding Level of Care Code Off vis,est,level 3 Diagnoses S/P AVR (aortic valve replacement) Z95.2 Coding Level of Care Code Off vis,est,level 3 Diagnoses S/P AVR (aortic valve replacement) Z95.2 05/11/18 5625 <Electronically signed by Taz Allen MD> Date Taz Allen MD Cosigner Signature: Date (if applicable) CC: HH, HEMOGLOBIN AND Collected: 04/28/2018 Status: F Source: [place]EM[place] 3:02 PM [facility] REPOSITORY Order Comment: DR ALLEN ORDERED: PT DR VERGARA ORDERED: VITD, PTHIN, HH, RENAL, PROCRE TYPE CODE TESTS RESULT OUT OF RANGE REFERENCE UNITS LAB L100.1300 12.0-15.0 g/dl Low HGB 10.7 LAB L100.1400 37-47 % Low HCT 33.8 Performed By: #### L100.0600 #### [facility] [address] [place], [address] PROTEIN+CREATININE Collected: Status: F Source: [place] RATIO,URINE 04/28/2018 3:02 PM [facility] REPOSITORY Order Comment: DR ALLEN ORDERED: PT DR VERGARA ORDERED: VITD, PTHIN, HH, RENAL, PROCRE TYPE CODE TESTS RESULT OUT OF RANGE REFERENCE UNITS LAB L501.1200 NO RANGE EST. mg/dL Normal UR CREAT 37.10 LAB L501.1930 <11.9 mg/dL Normal 8.7 PROTEIN,UR.R AN. LAB L501.1940 0-200 mg/g CRE High PROT:CRE 235 RATIO Performed By: #### L501.0900 #### [facility] [address] [place], [address] PROTHROMBIN TIME W/INR Collected: 04/28/2018 Status: F Source: [place] 3:02 PM [facility] REPOSITORY Order Comment: DR ALLEN ORDERED: PT DR VERGARA ORDERED: VITD, PTHIN, HH, RENAL, PROCRE TYPE CODE TESTS RESULT OUT OF RANGE REFERENCE UNITS LAB L300.4150 11.7-14.9 SECONDS High PROTIME 26.1 LAB L300.4200 Normal INR 2.4 Performed By: #### L300.3900 #### [facility] [address] [place], [address] RENAL PROFILE Collected: 04/28/2018 Status: F Source: [place] 3:02 PM [facility] REPOSITORY Order Comment: DR ALLEN ORDERED: PT DR VERGARA ORDERED: VITD, PTHIN, HH, RENAL, PROCRE TYPE CODE TESTS RESULT OUT OF RANGE REFERENCE UNITS LAB L501.0100 74-106 mg/dL Normal GLU 106 Result Comment: Fasting Glucose result from 100 to 125 mg/dL suggests IMPAIRED HOMEOSTASIS per A.D.A. criteria. Please note revised GLUCOSE reference range effective 2017. LAB L501.1000 7-18 mg/dL Normal BUN 17 LAB L501.1100 0.55-1.02 mg/dL High CREAT,SERUM 1.07 Result Comment: The validity of the calculated GFR AND GFRAA in patients over 70 years has not been determined. Clinical correlation is essential. LAB L501.1110 >60 mL/min Low EST GFR 54 Result Comment: Non- GFR Calc LAB L501.1115 >60 mL/min Normal EST GFR - AA 66 Result Comment: GFR Calc LAB L501.1300 10-20 RATIO Normal BUN/CRE 15.9 LAB L501.1800 3.2-5.0 g/dL Normal ALB 3.3 LAB L501.2200 8.5-10.1 mg/dL CA Normal 8.8 LAB L501.2300 2.5-4.9 mg/dL Normal PHOS 2.9 LAB L501.5300 136-145 mmol/L NA Normal 140 LAB L501.5600 3.5-5.1 mmol/L K Normal 4.3 LAB L501.5900 98-107 mmol/L CL Normal 101 LAB L501.6100 21.0-32.0 mmol/L Normal CO2 30.0 Performed By: #### L500.3600 #### [facility] [address] [place], [place], [id number] PTHIN Collected: 04/28/2018 Status: F Source: [place] 3:02 PM [facility] REPOSITORY Order Comment: DR ALLEN ORDERED: PT DR VERGARA ORDERED: VITD, PTHIN, HH, RENAL, PROCRE TYPE CODE TESTS RESULT OUT OF RANGE REFERENCE UNITS LAB L509.1000 18.4-80.1 pg/mL High PTHIN 131.3 Performed By: #### L509.1000 #### [facility] [address] [place], [address] VITAMIN D,25 HYDROXY Collected: 04/28/2018 Status: F Source: [place] 3:02 PM [facility] REPOSITORY Order Comment: DR ALLEN ORDERED: PT DR VERGARA ORDERED: VITD, PTHIN, HH, RENAL, PROCRE TYPE CODE TESTS RESULT OUT OF RANGE REFERENCE UNITS LAB L506.1000 29.95-100.01 ng/mL Normal Vitamin D 30.9 25-OH Result Comment: Vitamin D 25(OH) Status Range Deficiency <20 ng/mL (50nmol/L) Insuffciency 20 - 30 ng/mL (50 - 75 nmol/L) Sufficiency 30 - 100 ng/mL (75 - 250 nmol/L) Toxicity >100 ng/mL (>250 nmol/L) Performed By: #### L506.1000 #### [facility] [address] [place], [address] CARDIOLOGY VISIT Observed: 04/21/2018 Status: F Source: [place] REPORT 4:33 PM [facility] [place] REPOSITORY [facility] [address] [place] [address] OFFICE VISIT Date of Service: 04/10/18 MR#: [id number] Acct: [id number] Name: GRACIELA BRITO Rep #: [id number] : 1950 Provider: Julissa Balbuena Age/Sex: 68/F Location: [facility] Status: Signed HPI HPI Details: GRACIELA BRITO, is a 68 F who presents to the office today for an urgent cardiovascular outpatient follow-up. She has a history of severe aortic valve stenosis status post AVR with a 21 mm [place] trifecta valve in [place] [address] Lester, small aortic root status post aortic root enlargement with autologous pericardium in November 2017, postoperative atrial fibrillation, hyperlipidemia, and sleep apnea with BiPAP therapy. She was noted to have a junctional rhythm while in cardiac rehab. Last week she had her medication adjusted. She is currently only on metoprolol 25 mg daily. EKG today demonstrates sinus rhythm. Overall patient feels okay. She does not have any lightheadedness or dizziness. She does not have any worsening shortness of breath. She does not have any irregular heartbeats that she is aware of. 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 a [From Lantus] Allergy (Verified 04/10/18 11:20) Unknown iodine Allergy (Verified 04/10/18 11:20) Hives prednisone Adverse Reaction (Severe, Verified 04/10/18 11:20) Visual changes, glaucoma benjamin Adverse Reaction (Severe, Uncoded 04/10/18 11:20) Neck pain AND tingling Medications Aspirin E.C. [Ecotrin] 162 mg PO DAILY@0800 09/21/16 [History Confirmed 04/17/18] Hydroxychloroquine [Plaquenil] 400 mg PO DAILY 09/21/16 [History Confirmed 04/17/18] Levothyroxine Sodium 50 mcg PO DAILY 09/21/16 [History Confirmed 04/17/18] Clonazepam [Klonopin] 1 mg PO QHS 07/18/17 [History Confirmed 04/17/18] Docusate Sodium [Colace] 100 mg PO DAILY #20 cap 07/18/17 [Rx Confirmed 04/17/18] Sertraline HCl [Zoloft] 50 mg PO DAILY 07/18/17 [History Confirmed 04/17/18] atorvastatin 10 mg tablet 10 mg PO QHS tab 12/12/17 [History Confirmed 04/17/18] calcitriol 0.25 mcg capsule 0.25 mcg PO QDAY 12/12/17 [History Confirmed 04/17/18] warfarin 2.5 mg tablet 2.5 mg PO .COMPLEX 01/09/18 [History Confirmed 04/21/18] warfarin 5 mg tablet 5 mg PO .COMPLEX #90 tab 01/24/18 [Rx Confirmed 04/21/18] lisinopril 5 mg tablet 5 mg PO DAILY #90 tab 02/16/18 [Rx Confirmed 04/17/18] magnesium oxide 400 mg tablet 400 mg PO BID #180 tab 03/06/18 [Rx Confirmed 04/17/18] ferrous sulfate 324 mg (65 mg iron) tablet,delayed release 324 mg PO BID #60 tab 03/31/18 [Rx Confirmed 04/17/18] furosemide 20 mg tablet 40 mg PO QDAY tab 03/31/18 [History Confirmed 04/17/18] Nurse's Note: patient states that she experiences lightheadedness, dizziness, and nausea with activity. She also experiences shortness of breath as well. 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) Postoperative atrial fibrillation (Acute) Secondary pulmonary arterial hypertension (Chronic) Dyspnea (Chronic) Obesity (BMI 30.0-34.9) (Chronic) Central apnea (Chronic) Non-rheumatic aortic stenosis (Chronic) Surgical History History of right and left heart catheterization (Chronic 09/22/16) S/P AVR (aortic valve replacement) (Acute 11/28/17) Bilateral carpal tunnel syndrome (Chronic) History of partial hysterectomy (Chronic) History of right knee joint replacement (Chronic) History of tonsillectomy (Chronic) Hx of cholecystectomy (Chronic) Family History Brother CAD (coronary artery disease) CABG age 45 Father CAD (coronary artery disease) from [place] age 63 Mother Hypertension Cancer Sister Cancer Social History Smoking Status: Former smoker alcohol intake: current alcohol intake frequency: holidays/special occasions only Alcohol type: wine substance use type: does not use caffeine: Yes Type: coffee what type of physical activity do you participate in: none seatbelt use: always do you feel safe at home: Yes ROS Const Const: Negative for weakness, fatigue, fever(s) or headache(s) Eyes Eyes: Negative for blind spots, loss of peripheral vision or transient loss of vision ENT ENT: Negative for headache(s), dizziness, tinnitus or Nosebleed/epistaxis Cardio Chest Pain: No Palpitations: No Edema: None Muscle aches with walking: None Resp Respiratory: Negative for SOB with activity, SOB at rest, SOB orthopnea\SOB lying down or Cough GI GI: Negative nausea, vomiting, heartburn or vomiting blood/hematemesis : Negative for hematuria Musc Musc: Negative for muscle aches/ myalgia Neuro Neuro: Negative for weakness, headache(s), dizziness, near syncope, syncope, lightheadedness or orthostatic symptoms Nguyễn Hematologic/Lymphatic: Negative for easy bleeding Endo Endo: Negative for fatigue Cardiology Exam Const Appearance: cooperative, healthy appearing and no acute distress Nutritional Appearance: well nourished Orientation: alert, oriented x3 and oriented to person Head Head: normal to inspection, atraumatic and normocephalic Nose: external nose normal Face and Sinus: face symmetric Mouth: oral mucosae normal Eyes General: appearance normal, both eyes and all related structures Eyelids: eyelids normal Conjunctivae: conjunctivae normal Pupils: PERRL and normal by confrontation EOM: EOM intact bilaterally Neck Neck: normal visual inspection and full ROM Carotids: normal carotid upstroke Chest Chest inspection: normal inspection of the chest and midline sternotomy incision Auscultation: Bilateral: Clear to Auscultation Cardio Palpation: normal PMI Rate: regular rate Rhythm: regular rhythm Heart sounds: S1 normal, S2 normal and murmur; negative rub or gallop Murmur: Grade 1/6 and RLSB GI GI: normal to inspection, no hepatosplenomegaly and bowel sounds present Neuro General: alert, oriented x3, awake, CN's II-XI intact bilaterally and moves all extremities Skin Skin: no rashes or lesions noted Extremities Pulses: Normal: Right Femoral Pulse, Left Femoral Pulse, Right Dorsalis Pedis Pulse, Left Dorsalis Pedis Pulse, Right Posterior Tibial Pulse, Left Posterior Tibial Pulse, Right Radial Pulse, Left Radial Pulse Lower Extremity Edema: None: Bilateral Psych Psychological: normal affect Supplemental Info Echocardiogram from March 2018 showed normal LV size, estimated ejection fraction 45%, postoperative septal motion, stage II diastolic dysfunction, mild global hypokinesis of left ventricle, mild mitral valve insufficiency, mild to moderate tricuspid valve insufficiency with an RVSP of 38 mmHg, mean aortic valve gradient 12 mmHg, peak aortic valve gradient 20 mmHg, and stable appearing bioprosthetic aortic valve apparatus, and when compared to previous the AV has been replaced. Heart catheterization from October 2017 showed an ejection fraction of 65-75%, left main is angiographically normal, LAD with mild luminal irregularities less than 30%, LCx with mild luminal irregularities less than 30%, and RCA with mild luminal irregularities less than 30%. Aortic valve was noted to have mild calcification, severe stenosis, and no insufficiency. Aortic root was angiographically normal. Assessment AND Plan 1. Junctional bradycardia R00.1 Plan Patient's rhythm is sinus. She will continue with her beta- noemi. Will decrease her metoprolol to 12.5 mg twice a day. She will keep her appointment for next week. Did have a long discussion with patient about when a pacemaker is warranted. Since she is on rate limiting medication will continue to decrease this, as long as she maintains sinus rhythm do not feel that this is necessary at this time. We will continue to monitor with cardiac rehab. 2. S/P AVR (aortic valve replacement) Z95.2 11/28/[address] [facility] Trifecta AVR (bioprosthetic) with pericordial patch for aortic root dilatation, per Dr. Lester @ [facility] Plan Recent echocardiogram has been reviewed. We will continue to monitor by history, exam and echocardiograms as deemed appropriate. She will continue with antibiotic prophylaxis. Plan Detail Other Orders Orders: Additional Comments Thank you for allowing us to participate in patient's plan of care, if you have any questions please do not hesitate to call. This note was generated using a voice recognition system and there may be incorrect words, spelling or punctuation errors that were not noted when reviewing the office note prior to saving. Follow Up 04/10/18 ([facility] 04/17 at 11 with EKG) Coding Level of Care Code Off vis,est,level 4 Diagnoses Junctional bradycardia R00.1 S/P AVR (aortic valve replacement) Z95.2 Coding Level of Care Code Off vis,est,level 4 Diagnoses Junctional bradycardia R00.1 S/P AVR (aortic valve replacement) Z95.2 04/21/18 3056 <Electronically signed by Julissa LEIJA> Date Julissa LEIJA Cosigner Signature: Date (if applicable) CC: PROTHROMBIN TIME W/INR Collected: 04/21/2018 Status: F Source: [place] 11:54 AM [facility] [place] REPOSITORY TYPE CODE TESTS RESULT OUT OF RANGE REFERENCE UNITS LAB L300.4150 11.7-14.9 SECONDS High PROTIME 21.2 LAB L300.4200 Normal INR 1.8 Performed By: #### L300.3900 #### [facility] [address] [place], [address] ERYTHROCYTE SED RATE Collected: 04/21/2018 Status: F Source: [place] 11:51 AM [facility] [place] REPOSITORY TYPE CODE TESTS RESULT OUT OF RANGE REFERENCE UNITS LAB L102.0000 0-30 mm/hr Normal SED RATE 11 Performed By: #### L101.9900, L100.0100 #### [facility] [address] [place], [place], [address] CBC W/DIFF, AUTOMATED Collected: 04/21/2018 Status: F Source: [place] 11:51 AM [facility] [place] REPOSITORY TYPE CODE TESTS RESULT OUT OF RANGE REFERENCE UNITS LAB L100.1000 4.4-11.0 K/mm3 Normal WBC 6.3 LAB L100.1200 4.2-5.4 M/mm3 Low RBC 3.35 LAB L100.1300 12.0-15.0 g/dl Low HGB 9.9 LAB L100.1400 37-47 % Low HCT 31.5 LAB L100.1500 81-99 fL Normal MCV 94.0 LAB L100.1600 27.0-32.0 pg Normal MCH 29.6 LAB L100.1700 32-36 g/gl Low MCHC 31.4 LAB L100.1810 11.6-14.6 % High RDW CV 16.7 LAB L100.1820 35.1-43.9 fl High RDW SD 55.8 LAB L100.1900 150-450 K/mm3 Normal PLT 202 LAB L100.2000 6.2-12.0 fl Normal MPV 10.2 LAB L100.2100 47-70 % Normal NEUT% 67.4 LAB L100.2200 19-41 % Normal LY% 22.8 LAB L100.2300 0-10 % Normal MONO% 8.0 LAB L100.2400 0-5 % Normal EO% 1.1 LAB L100.2500 0-1 % Normal BASO% 0.5 LAB L100.2550 0.0-0.9 % Normal IM GRAN % 0.200 Result Comment: IG% - Immature Granulocytes (promyelocytes, myelocytes and metamyelocytes) > 1% indicates that a LEFT SHIFT is Present. LAB L100.2620 2.0-7.7 X10 3/uL Normal Absolute Neut 4.2 LAB L100.2720 0.83-4.51 X10 3/ul Normal Absolute Lymph 1.43 Performed By: #### L101.9900, L100.0100 #### [facility] [address] [place], [address] BUN Collected: 04/21/2018 Status: F Source: [place] 11:51 AM [facility] [place] REPOSITORY TYPE CODE TESTS RESULT OUT OF RANGE REFERENCE UNITS LAB L501.1000 7-18 mg/dL High BUN 24 Performed By: #### L501.1000, L501.1105, L501.1800, L501.4100, L501.4405, L501.6710 #### [facility] [address] [place], [address] SERUM CREATININE AND Collected: 04/21/2018 Status: F Source: [place] GFR 11:51 AM [facility] [place] REPOSITORY TYPE CODE TESTS RESULT OUT OF RANGE REFERENCE UNITS LAB L501.1100 0.55-1.02 mg/dL High 1.10 CREAT,SERUM Result Comment: The validity of the calculated GFR AND GFRAA in patients over 70 years has not been determined. Clinical correlation is essential. LAB L501.1110 >60 mL/min Low EST GFR 53 Result Comment: Non- GFR Calc LAB L501.1115 >60 mL/min Normal EST GFR - AA 64 Result Comment: GFR Calc Performed By: #### L501.1000, L501.1105, L501.1800, L501.4100, L501.4405, L501.6710 #### [facility] [address] [place], [address] ALBUMIN, SERUM Collected: 04/21/2018 Status: F Source: [place] 11:51 AM [facility] [place] REPOSITORY TYPE CODE TESTS RESULT OUT OF RANGE REFERENCE UNITS LAB L501.1800 3.2-5.0 g/dL Normal ALB 3.2 Performed By: #### L501.1000, L501.1105, L501.1800, L501.4100, L501.4405, L501.6710 #### [facility] [address] [facility] [place], [address] AST(SGOT) Collected: 04/21/2018 Status: F Source: [place] 11:51 AM [facility] [place] REPOSITORY TYPE CODE TESTS RESULT OUT OF RANGE REFERENCE UNITS LAB L501.4100 15-37 U/L Normal AST 17 Performed By: #### L501.1000, L501.1105, L501.1800, L501.4100, L501.4405, L501.6710 #### [facility] [address] [facility] [place], [address] ALANINE AMINOTRANSFERAS Collected: 04/21/2018 Status: F Source: [place] (SGPT) 11:51 AM [facility] [place] REPOSITORY TYPE CODE TESTS RESULT OUT OF RANGE REFERENCE UNITS LAB L501.4405 13-56 U/L Normal ALT 19 Performed By: #### L501.1000, L501.1105, L501.1800, L501.4100, L501.4405, L501.6710 #### [facility] [address] [facility] [place], [address] CRP Collected: 04/21/2018 Status: F Source: [place] 11:51 AM [facility] [place] REPOSITORY TYPE CODE TESTS RESULT OUT OF RANGE REFERENCE UNITS LAB L501.6710 0.0-3.0 mg/L High 55.60 C-REACTIVE PROT Result Comment: C-Reactive Protein (CRP) provides useful information for the diagnosis, therapy and monitoring of inflammatory processes and associated diseases. For the evaluation of Relative Risk for Cardiovascular Disease, a High Sensitivity CRP (HSCRP) should be ordered. Performed By: #### L501.1000, L501.1105, L501.1800, L501.4100, L501.4405, L501.6710 #### [facility] [address] [place], [address] CARDIOLOGY VISIT Observed: 04/21/2018 Status: F Source: [place] REPORT 10:37 AM [facility] [place] REPOSITORY [facility] [address] [place] [address] OFFICE VISIT Date of Service: 04/17/18 MR#: [id number] Acct: [id number] Name: GRACIELA BRITO Rep #: [id number] : 1950 Provider: VEGA Macdonald Age/Sex: 68/F Location: [facility] Status: Signed HPI HPI Details: GRACIELA BRITO, is a 68 F who presents to the office today for a cardiovascular outpatient follow-up. She has a history of severe aortic valve stenosis status post AVR with a 21 mm [facility] trifecta valve in [place] [address] Lester, small aortic root status post aortic root enlargement with autologous pericardium in November 2017, postoperative atrial fibrillation, hyperlipidemia, and sleep apnea with BiPAP therapy. Most recently patient was undergoing cardiac rehab and noted to look ill. She underwent laboratory work and an EKG. Her EKG showed a junctional rhythm. Her diltiazem was discontinued. She then had a repeat EKG after stopping her diltiazem that showed sinus bradycardia. Pt denies chest, arm, jaw, or neck discomfort. Her exercise tolerance is slightly improved since stopping cardizem. Pt denies symptoms of CHF, palpitations, near syncopal or syncopal episodes. Pt denies edema or claudication issues. Pt. denies orthopnea, PND, fever, chills, blood in urine, blood in stool, or myalgia. She states having a odd sensation in her chest. She states as she gets more tired she develops a pre-syncope sensation. She states continual fatigue, lightheadedness, dizziness, and SOB with exertion. She states during cardiac rehab she notices worsening fatigue, lightheadedness, and SOB. Intake Vital Signs04/17/18 Height 4 ft 9 in 04/17/18 Weight: 205 lb 07/30/18 Body Mass Index (BMI) 44.3 04/17/18 Blood Pressure 132/62 04/17/18 Blood Pressure Location Rt brachial Intake Visit Reasons: 1 [facility] AND EKG Advertising Sales Agent Required: No Accompanied by: Is patient in pain?: No Allergies amiodarone Allergy (Unknown, Verified 04/10/18 11:20) Unknown ciprofloxacin [From Cipro] Allergy (Verified 04/10/18 11:20) Unknown ciprofloxacin HCl [From Cipro] Allergy (Verified 04/10/18 11:20) Unknown insulin glargine, human recombin. a [From Lantus] Allergy (Verified 04/10/18 11:20) Unknown iodine Allergy (Verified 04/10/18 11:20) Hives prednisone Adverse Reaction (Severe, Verified 04/10/18 11:20) Visual changes, glaucoma benjamin Adverse Reaction (Severe, Uncoded 04/10/18 11:20) Neck pain AND tingling Medications Aspirin E.C. [Ecotrin] 162 mg PO DAILY@0800 09/21/16 [History Confirmed 04/17/18] Hydroxychloroquine [Plaquenil] 400 mg PO DAILY 09/21/16 [History Confirmed 04/17/18] Levothyroxine Sodium 50 mcg PO DAILY 09/21/16 [History Confirmed 04/17/18] Clonazepam [Klonopin] 1 mg PO QHS 07/18/17 [History Confirmed 04/17/18] Docusate Sodium [Colace] 100 mg PO DAILY #20 cap 07/18/17 [Rx Confirmed 04/17/18] Sertraline HCl [Zoloft] 50 mg PO DAILY 07/18/17 [History Confirmed 04/17/18] atorvastatin 10 mg tablet 10 mg PO QHS tab 12/12/17 [History Confirmed 04/17/18] calcitriol 0.25 mcg capsule 0.25 mcg PO QDAY 12/12/17 [History Confirmed 04/17/18] warfarin 2.5 mg tablet 2.5 mg PO .COMPLEX 01/09/18 [History Confirmed 04/17/18] warfarin 5 mg tablet 5 mg PO .COMPLEX #90 tab 01/24/18 [Rx Confirmed 04/17/18] lisinopril 5 mg tablet 5 mg PO DAILY #90 tab 02/16/18 [Rx Confirmed 04/17/18] magnesium oxide 400 mg tablet 400 mg PO BID #180 tab 03/06/18 [Rx Confirmed 04/17/18] ferrous sulfate 324 mg (65 mg iron) tablet,delayed release 324 mg PO BID #60 tab 03/31/18 [Rx Confirmed 04/17/18] furosemide 20 mg tablet 40 mg PO QDAY tab 03/31/18 [History Confirmed 04/17/18] PFSH Medical History Obstructive sleep apnea (Chronic) Palpitations (Chronic) Hyperlipidemia (Chronic) History of Sjogren's disease (Chronic) Rheumatoid arthritis (Chronic) Type 2 diabetes mellitus without complications (Chronic) Hypothyroidism (Chronic) [facility] (current)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 (Acute) Postoperative atrial fibrillation (Acute) Secondary pulmonary arterial hypertension (Chronic) Dyspnea (Chronic) Obesity (BMI 30.0-34.9) (Chronic) Central apnea (Chronic) Non-rheumatic aortic stenosis (Chronic) Surgical History History of right and left heart catheterization (Chronic 09/22/16) S/P AVR (aortic valve replacement) (Acute 11/28/17) Bilateral carpal tunnel syndrome (Chronic) History of partial hysterectomy (Chronic) History of right knee joint replacement (Chronic) History of tonsillectomy (Chronic) Hx of cholecystectomy (Chronic) Family History Brother CAD (coronary artery disease) CABG age 45 Father CAD (coronary artery disease) from [place] age 63 Mother Hypertension Cancer Sister Cancer Social History Smoking Status: Former smoker alcohol intake: current alcohol intake frequency: holidays/special occasions only Alcohol type: wine substance use type: does not use caffeine: Yes Type: coffee what type of physical activity do you participate in: none seatbelt use: always do you feel safe at home: Yes ROS Const Const: Positive for fatigue; negative for weakness, body ache, fever(s) or chills ENT ENT: Positive for dizziness Cardio Chest Pain: No Palpitations: No Edema: None Muscle aches with walking: None Resp Respiratory: Positive for SOB with activity; negative for SOB at rest, SOB orthopnea\SOB lying down or paroxysmal nocturnal dyspnea GI GI: Negative nausea, black,tarry stools, bright, red blood in stools or vomiting blood/hematemesis : Negative for hematuria or frequent nighttime urination/ nocturia Musc Musc: Negative for muscle aches/ myalgia Skin Skin: Negative non-healing lesions or rash Neuro Neuro: Positive for dizziness; negative for lightheadedness, near syncope, syncope, orthostatic symptoms or weakness Endo Endo: Positive for fatigue Allergy Allergy/Immunology: Negative for rash Cardiology Exam Const Appearance: cooperative, healthy appearing and no acute distress Nutritional Appearance: well nourished Orientation: alert, oriented x3 and oriented to person Head Head: normal to inspection, atraumatic and normocephalic Nose: external nose normal Face and Sinus: face symmetric Mouth: oral mucosae normal Eyes General: appearance normal, both eyes and all related structures Eyelids: eyelids normal Conjunctivae: conjunctivae normal Pupils: PERRL and normal by confrontation EOM: EOM intact bilaterally Neck Neck: normal visual inspection and full ROM Carotids: normal carotid upstroke Chest Chest inspection: normal inspection of the chest Auscultation: Bilateral: Clear to Auscultation Cardio Palpation: normal PMI Rate: regular rate Rhythm: regular rhythm Heart sounds: S1 normal and S2 normal; negative rub, gallop or murmur Murmur: Grade 1/6 and RLSB GI GI: normal to inspection, no hepatosplenomegaly and bowel sounds present Neuro General: alert, oriented x3, awake, CN's II-XI intact bilaterally and moves all extremities Skin Skin: no rashes or lesions noted Extremities Pulses: Normal: Right Femoral Pulse, Left Femoral Pulse, Right Dorsalis Pedis Pulse, Left Dorsalis Pedis Pulse, Right Posterior Tibial Pulse, Left Posterior Tibial Pulse, Right Radial Pulse, Left Radial Pulse Lower Extremity Edema: None: Bilateral Psych Psychological: normal affect Supplemental Info Echocardiogram from March 2018 showed normal LV size, estimated ejection fraction 45%, postoperative septal motion, stage II diastolic dysfunction, mild global hypokinesis of left ventricle, mild mitral valve insufficiency, mild to moderate tricuspid valve insufficiency with an RVSP of 38 mmHg, mean aortic valve gradient 12 mmHg, peak aortic valve gradient 20 mmHg, and stable appearing bioprosthetic aortic valve apparatus, and when compared to previous the AV has been replaced. Heart catheterization from October 2017 showed an ejection fraction of 65-75%, left main is angiographically normal, LAD with mild luminal irregularities less than 30%, LCx with mild luminal irregularities less than 30%, and RCA with mild luminal irregularities less than 30%. Aortic valve was noted to have mild calcification, severe stenosis, and no insufficiency. Aortic root was angiographically normal. Assessment AND Plan 1. S/P AVR (aortic valve replacement) Z95.2 3/12/[address] #[address] [facility] Trifecta AVR (bioprosthetic) with pericordial patch for aortic root dilatation, per Dr. Lester @ [facility] DAVIN Vergara Patient continues to have shortness of breath on exertion. Her most recent echocardiogram in March 2018 showed ejection fraction 45%, mean aortic valve gradient of 12 mmHg, peak aortic valve gradient 20 mmHg, and stable pain bioprosthetic aortic valve apparatus. He will continue current medications and we will continue to monitor this. Orders Orders: 2. Fatigue, unspecified type R53.83 DAVIN Vergara Patient's heart catheterization from October 2017 showed ejection fraction of 65 75%, angiographically normal left main, LAD with mild luminal irregularities less than 30%, LCx with mild luminal irregularities less than 30%, and RCA with mild luminal irregularities less than 30%. Her recent laboratory work showed a normal thyroid function. Her hemoglobin level remains low most recently at 10.8. This is improved since initiating iron therapy. Her EKG in office showed sinus bradycardia at a rate of 50 bpm. She will stop her metoprolol tartrate 12.5 mg to evaluate if low heart rate and/or beta-noemi is a contributory source of her fatigue. She was asked to contact our office in approximately 2 week with an update on symptoms and heart rate. 3. Dyspnea on exertion R06.09 DAVIN Vergara Patient's most recent echocardiogram in March 2018 showed ejection fraction 45%, which is reduced from previous echocardiogram in September 2017. Her heart catheterization from 2018 showed ejection fraction of 65 75% and less than 30% disease noted throughout. Patient does not appear to be in a fluid volume overload state. Her Lasix has recently been increased due to elevated BTNP in the past. It was recommended that depending on overall cardiovascular care that non cardiovascular etiology for her dyspnea may need to be investigated. She states this has been done in the past and that it is not her lungs. 4. 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 Allen for further evaluation. Discussed the above patient with Dr. Allen, he agrees with the plan of care. Thank you for allowing us to participate in the patients plan of care, if you have any questions please do not hesitate to call. This note was generated using a voice recognition system and there may be incorrect words, spelling or punctuation that were not noted when reviewing the office note prior to saving. 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 Coding Level of Care Code Off vis,est,level 3 Diagnoses S/P AVR (aortic valve replacement) Z95.2 Fatigue, unspecified type R53.83 Fatigue type: unspecified Dyspnea on exertion R06.09 Dyspnea type: dyspnea on exertion [facility] (current)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 Z79.01 04/17/18 1551 <Electronically signed by Jose Enrique Macdonald NP-C> Date Jose Enrique Macdonald ASSISTANT DIRECTOR OF NURSING-C 04/21/18 1037<Electronically signed by Taz Allen MD> Cosigner Signature: Date (if applicable) Taz Allen MD CC: Bird Garza MD FOLLOW UP (RHEUMATOLOGY) Observed: 04/20/2018 Status: [facility] Source: [place] 12:45 PM [facility] REPOSITORY Chief Complaint RA follow up History of Present Illness Since last seen, dislocated both shoulders with a fall in June; In November, had valve replacement and developed post op a fib. Still with dizziness and SOB and ejection fraction has decreased. Planned for pacer The patient is being seen for a routine clinic follow-up of rheumatoid arthritis. Symptoms: joint pain, joint swelling, joint stiffness and morning stiffness, but no joint redness and no joint warmth. (stable) Systemically the patient has positive rheumatoid factor testing. Associated symptoms: fatigue. Current treatment includes hydroxychloroquine and methotrexate. By report, there is good compliance with treatment, good tolerance of treatment and fair symptom control. Initial diagnosis of rheumatoid arthritis was 1989. Initial presentation included insidious onset, polyarthritis, typical joint distribution, morning stiffness and joint swelling. Disease complications: joint destruction. She was previously evaluated by a colleague. Past treatment has included exercise, aspirin, nonsteroidal anti-inflammatory drugs, corticosteroids, hydroxychloroquine, methotrexate and tumor necrosis factor inhibitors. Review of Systems Constitutional: no fever, no chills, not feeling poorly, not feeling tired, no recent weight gain and no recent weight loss. ENT: no earache, no hearing loss, no nosebleeds, no nasal discharge, no sore throat and no hoarseness. Cardiovascular: palpitations, but the heart rate was not slow, the heart rate was not fast, no chest pain, no intermittent leg claudication and no lower extremity edema. Respiratory: shortness of breath during exertion, but no cough, not coughing up sputum and no wheezing that is consistent with asthma. Gastrointestinal: no abdominal pain, no constipation, no melena, no nausea, no diarrhea, no vomiting and no blood in stools. Musculoskeletal: arthralgias and joint stiffness, but no myalgias, no back pain, no joint swelling, no limb pain and no limb swelling. Integumentary: no rashes, no skin lesions, no itching, no skin wound and no dry skin. Neurological: no headache, no confusion, no numbness, no dizziness, no tingling and no fainting. 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 (V58.69) (Z79.899) Long-term use of immunosuppressant medication (V58.69) (Z79.899) Long-term use of Plaquenil (V58.69) (Z79.899) Rheumatoid arthritis (714.0) (M06.9) Past Medical History History of Encounter for monitoring sulfasalazine therapy (V58.83,V58.69) (Z51.81,Z79.899) History of Generalized headaches (784.0) (R51) History of cardiac disorder (V12.50) (Z86.79) History of chronic obstructive lung disease (V12.69) (Z87.09) History of dislocation of shoulder (V13.59) (Z87.39) History of glaucoma (V12.49) (Z86.69) History of malignant neoplasm of skin (V10.83) (Z85.828) History of peptic ulcer (V12.71) (Z87.11) History of pneumonia (V12.61) (Z87.01) Surgical History History of Biopsy Skin x6 History of Cholecystectomy History of Hysterectomy History of Knee Replacement R knee History of Mitral Valve Replacement History of Neuroplasty Median Nerve At Carpal Tunnel bilateral History of Tonsillectomy Family History Family history of Family history of hypertension (V17.49) (Z82.49) Family history of lung cancer (V16.1) (Z80.1) Family history of malignant neoplasm (V16.9) (Z80.9) Family history of osteoarthritis (V17.89) (Z82.69) Family history of Family history of alcoholism (V17.0) (Z81.1) Family history of cardiac disorder (V17.49) (Z82.49) Family history of hypertension (V17.49) (Z82.49) Family history of myocardial infarction (V17.3) (Z82.49) Family history of In good condition Family history of alcoholism (V17.0) (Z81.1) Family history of asthma (V17.5) (Z82.5) Family history of malignant neoplasm (V16.9) (Z80.9) Family history of alcoholism (V17.0) (Z81.1) Family history of cardiac disorder (V17.49) (Z82.49) Family history of malignant neoplasm (V16.9) (Z80.9) Family history of rheumatic fever (V17.49) (Z82.49) Family history of cardiac disorder (V17.49) (Z82.49) Family history of leukemia (V16.6) (Z80.6) Social History Born in [place] Disabled Lack of adequate sleep (V69.4) (Z72.820) Lives in [place] Mother Never a smoker Never used tobacco (V49.89) (Z78.9) No alcohol use No caffeine use No drug use One child Sleeps less than 6 hours a day Allergies Humira Recorded By: Julissa Rodriguez; 03/31/2016 10:59:13 AM SulfaSALAzine TABS Recorded By: Liv Danielle; 11/01/2016 11:16:08 AM Current Meds Methotrexate 2.5 MG Oral Tablet; TAKE 8 TABLETS PER WEEK; Therapy: 30Apr2016 to (Last Rx:28Jan2017) Requested for: [id number]; Status: ACTIVE - Renewal Denied Ordered Rx By: Indu Rm; Dispense: 0 Days ; #:96 Tablet; Refill: 3;For: Rheumatoid arthritis; CHIRAG = N; Verified Transmission to [facility]; Last Updated By: Jos eM Landrum; 04/09/2018 2:10:17 PM Aspir-81 81 MG Oral Tablet Delayed Release; Therapy: 07Feb2017 to Recorded Dispense: 0 Days ; #: Sufficient Tablet Delayed Release; Refill: 0; CHIRAG = N; Record; Last Updated By: Liv Danielle; 02/07/2017 11:17:04 AM Atorvastatin Calcium 10 MG Oral Tablet; Therapy: 04Dec2017 to Recorded Dispense: 30 Days ; #:30 TABS; Refill: 0; CHIRAG = N; Record; Last Updated By: Indu Rm; 04/19/2018 6:45:42 PM Calcitriol 0.25 MCG Oral Capsule; Therapy: 17May2017 to Recorded Dispense: 90 Days ; #:39 CAPS; Refill: 0; CHIRAG = N; Record; Last Updated By: Indu Rm; 04/19/2018 6:45:42 PM ClonazePAM 1 MG Oral Tablet; TAKE 1 TABLET AT BEDTIME; Therapy: 07Feb2017 to Recorded Dispense: 0 Days ; #: Sufficient Tablet; Refill: 0; CHIRAG = N; Record; Last Updated By: Liv Danielle; 05/16/2017 4:54:03 PM Folic Acid 1 MG Oral Tablet; Take 1 tablet daily; Therapy: 31Mar2016 to (Evaluate:27Sep2016) Recorded Dispense: 30 Days ; #:30 Tablet; Refill: 5; CHIRAG = N; Record; Last Updated By: Julissa Rodriguez; 03/31/2016 10:59:13 AM Furosemide 20 MG Oral Tablet; Therapy: 27Jan2018 to Recorded Dispense: 90 Days ; #:180 TABS; Refill: 0; CHIRAG = N; Record; Last Updated By: Indu Rm; 04/19/2018 6:45:42 PM Hydroxychloroquine Sulfate 200 MG Oral Tablet; TAKE 1 TABLET TWICE DAILY WITH FOOD; Therapy: [id number] to (Evaluate:27Sep2016) Recorded Dispense: 30 Days ; #:1 X 60 Tablet Bottle; Refill: 5; CHIRAG = N; Record; Last Updated By: Julissa Rodriguez; 03/31/2016 10:59:13 AM Isosorbide Dinitrate 20 MG Oral Tablet; Therapy: (Recorded:20Apr2018) to Recorded Dispense: 0 Days ; #: Sufficient TABS; Refill: 0; CHIRAG = N; Record; Last Updated By: Porsha Mondragon; 04/20/2018 11:18:06 AM Levothyroxine Sodium 50 MCG Oral Tablet; TAKE 1 TABLET DAILY; Therapy: 34Pcd2817 to (Evaluate:27Sep2016) Recorded Dispense: 30 Days ; #:30 Tablet; Refill: 5; CHIRAG = N; Record; Last Updated By: Julissa Rodriguez; 03/31/2016 10:59:13 AM Lisinopril 5 MG Oral Tablet; Therapy: 16Feb2018 to Recorded Dispense: 90 Days ; #:90 TABS; Refill: 0; CHIRAG = N; Record; Last Updated By: Indu Rm; 04/19/2018 6:45:42 PM Warfarin Sodium 5 MG Oral Tablet; Therapy: 24Jan2018 to Recorded Dispense: 90 Days ; #:98 TABS; Refill: 0; CHIRAG = N; Record; Last Updated By: Indu Rm; 04/19/2018 6:45:42 PM Vitals Vital Signs Recorded: 20Apr2018 11:15AM Eeurtqeakub78.3 F, Oral Heart Rate57 Zoytrmxe762, RLE, Sitting Lsgeoudbk06, RLE, Sitting Blood Pressure Cuff SizeAdult Ygfedq962 lb BMI Epzldtvolc31 BSA Calculated1.86 O2 Otkzqshjkv46 Physical Exam Constitutional General appearance: Alert and in no acute distress. Pulmonary Respiratory assessment: No respiratory distress, normal respiratory rhythm and effort. Cardiovascular Exam for edema: No peripheral edema. Musculoskeletal Examination of gait: Normal. Inspection of digits and nails: No clubbing or cyanosis of the fingernails. Inspection/palpation of joints: No joint swelling seen. (no synovitis of examined joints). Appearance - no erythema, no ecchymosis, no amputations, no deformity, no asymmetry, no contractures and normal spinal curvature. Palpation - no increased warmth, no masses, no click and no crepitus. Skin Skin inspection: Normal skin color and pigmentation, normal skin turgor and no visible rash. Psychiatric Orientation: Oriented to person, place, and time. Mood and affect: Normal. 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 pt to get labs every 3 months and see me every 6 RA clinical decision making GRACIELA BRITO has RA on high risk immunosuppression currently on plaquenil, MTX. Patient has the following poor prognostic factors requiring aggressive treatment: RF+ Patient has failed the following meds SSZ, humira Due to immunosuppression, vaccination is important and pt is up to date The patient's labs, radiology images and reports, and other tests since previous appointment were obtained, reviewed, and summarized as applicable from the physician portal, electronic medical records s temt and/or outside sources. Pertinent positive and negative findings were considered in medical decision making. All questions were answered and the patient was counseled regarding the diagnosis, prognosis, risk and benefits of the various treatment options and the importance of compliance with therapy. Patient Discussion/Summary follow up 6months Patient Education Homegoing instructions You are on methotrexate. Since methotrexate can affect your liver, please refrain from drinking alcohol excessively You are on chronic plaquenil. Make sure you see your eye doctor yearly As always, a healthy lifestyle helps chronic diseases. Eat a balanced diet, exercise at least 30 minutes a day/5 days a week and be up to date on screening health exams Go on [employer] to view your test results. Please ask the office to help you set up your email in order to access this secure system. You can use [employer] to also contact the office for noncritical issues, schedule/cancel appointments and ask for refills. Thank you .. End of Encounter Meds Aspir-81 81 MG Oral Tablet Delayed Release; Therapy: 07Feb2017 to Recorded Atorvastatin Calcium 10 MG Oral Tablet; Therapy: 04Dec2017 to Recorded Calcitriol 0.25 MCG Oral Capsule; Therapy: 17May2017 to Recorded ClonazePAM 1 MG Oral Tablet; TAKE 1 TABLET AT BEDTIME; Therapy: 07Feb2017 to Recorded Folic Acid 1 MG Oral Tablet; Take 1 tablet daily; Therapy: 22Vox4281 to (Evaluate:27Sep2016) Recorded Furosemide 20 MG Oral Tablet; Therapy: 27Jan2018 to Recorded Hydroxychloroquine Sulfate 200 MG Oral Tablet; TAKE 1 TABLET TWICE DAILY WITH FOOD; Therapy: 58Nnh7859 to (Evaluate:27Sep2016) Recorded Isosorbide Dinitrate 20 MG Oral Tablet; Therapy: (Recorded:20Apr2018) to Recorded Levothyroxine Sodium 50 MCG Oral Tablet; TAKE 1 TABLET DAILY; Therapy: 61Wvf8613 to (Evaluate:27Sep2016) Recorded Lisinopril 5 MG Oral Tablet; Therapy: 16Feb2018 to Recorded Methotrexate 2.5 MG Oral Tablet; TAKE 8 TABLETS PER WEEK; Therapy: 62Fke9001 to (Last Rx:28Jan2017) Requested for: 09Apr2018; Status: ACTIVE - Renewal Denied Ordered Warfarin Sodium 5 MG Oral Tablet; Therapy: 24Jan2018 to Recorded Signatures Electronically signed by : Indu Rm MD; Apr 20 2018 12:45PM EST (Author) 12 LEAD ELECTROCARDIOGRAM Observed: 04/18/2018 Status: F Source: [place] 3:31 PM [facility] REPOSITORY [facility] Cardiovascular Services [address] [place] [address] 12 Lead EKG 04/07/18 1350 MR#: [id number] Acct: [id number] Name: GRACIELA BRITO Rep #: [id number] : 1950 68 From: Bird Chery MD Attending Dr: Taz Allen MD Status: REG RCR Ordering Dr: Taz Allen MD Date: 04/07/18 Location: Sex: F C Admitted: Test Reason : ARRYTHMIA,BRADYCARDI Blood Pressure : / mmHG Vent. Rate : 045 BPM Atrial Rate : 039 BPM P-R Int : 000 ms QRS Dur : 096 ms QT Int : 494 ms P-R-T Axes : 000 020 228 degrees QTc Int : 427 ms Junctional rhythm Anteroseptal infarct , age undetermined ST AND T wave abnormality, consider inferolateral ischemia Abnormal ECG Confirmed by JR JORDAN, BIRD ([id number]), newspaper copy editor DIANE NAVARRETE ([id number]) on 04/18/2018 3:30:47 PM Referred By: Taz Allen Confirmed By:BIRD CHERY MD 04/18/18 1530 Date Bird Chery MD CC: Taz Allen MD; Bird Garza MD Signed CBC W/DIFF, AUTOMATED Collected: 04/07/2018 Status: F Source: REY 2:30 PM [facility] REPOSITORY TYPE CODE TESTS RESULT OUT OF RANGE REFERENCE UNITS LAB L100.1000 4.4-11.0 K/mm3 Normal WBC 8.4 LAB L100.1200 4.2-5.4 M/mm3 Low RBC 3.79 LAB L100.1300 12.0-15.0 g/dl Low HGB 10.8 LAB L100.1400 37-47 % Low HCT 35.2 LAB L100.1500 81-99 fL Normal MCV 92.9 LAB L100.1600 27.0-32.0 pg Normal MCH 28.5 LAB L100.1700 32-36 g/gl Low MCHC 30.7 LAB L100.1810 11.6-14.6 % High RDW CV 17.0 LAB L100.1820 35.1-43.9 fl High RDW SD 56.3 LAB L100.1900 150-450 K/mm3 Normal PLT 283 LAB L100.2000 6.2-12.0 fl Normal MPV 10.2 LAB L100.2100 47-70 % High NEUT% 73.1 LAB L100.2200 19-41 % Normal LY% 19.3 LAB L100.2300 0-10 % Normal MONO% 5.4 LAB L100.2400 0-5 % Normal EO% 1.4 LAB L100.2500 0-1 % Normal BASO% 0.6 LAB L100.2550 0.0-0.9 % Normal IM GRAN % 0.200 Result Comment: IG% - Immature Granulocytes (promyelocytes, myelocytes and metamyelocytes) > 1% indicates that a LEFT SHIFT is Present. LAB L100.2620 2.0-7.7 X10 3/uL Normal Absolute Neut 6.1 LAB L100.2720 0.83-4.51 X10 3/ul Normal Absolute Lymph 1.61 Performed By: #### L100.0100 #### [facility] [address] [place], [address] BASIC METABOLIC Collected: 04/07/2018 Status: F Source: [place] PROFILE (BMP) 2:30 PM [facility] REPOSITORY TYPE CODE TESTS RESULT OUT OF RANGE REFERENCE UNITS LAB L501.0100 74-106 mg/dL Normal GLU 102 Result Comment: Fasting Glucose result from 100 to 125 mg/dL suggests IMPAIRED HOMEOSTASIS per A.D.A. criteria. Please note revised GLUCOSE reference range effective 2017. LAB L501.1000 7-18 mg/dL High BUN 23 LAB L501.1100 0.55-1.02 mg/dL High CREAT,SERUM 1.51 Result Comment: The validity of the calculated GFR AND GFRAA in patients over 70 years has not been determined. Clinical correlation is essential. LAB L501.1110 >60 mL/min Low EST GFR 37 Result Comment: Non- GFR Calc LAB L501.1115 >60 mL/min Low EST GFR - AA 44 Result Comment: GFR Calc LAB L501.1300 10-20 RATIO Normal BUN/CRE 15.2 LAB L501.2200 8.5-10.1 mg/dL CA Normal 8.7 LAB L501.5300 136-145 mmol/L NA Normal 139 LAB L501.5600 3.5-5.1 mmol/L K Normal 4.5 LAB L501.5900 98-107 mmol/L CL Normal 104 LAB L501.6100 21.0-32.0 mmol/L Normal CO2 29.0 LAB L501.6200 5-15 Normal GAP 6 Performed By: #### L500.2500, L501.9520, L506.0400 #### [facility] [address] [place], [address] THYROID STIM HORMONE Collected: 04/07/2018 Status: F Source: [place] (TSH) 2:30 PM [facility] REPOSITORY TYPE CODE TESTS RESULT OUT OF RANGE REFERENCE UNITS LAB L501.9520 0.358-3.74 uIU/mL Normal TSH 1.64 Performed By: #### L500.2500, L501.9520, L506.0400 #### [facility] [address] [facility] [place], [address] T4 FREE DIRECT Collected: 04/07/2018 Status: F Source: [place] 2:30 PM [facility] REPOSITORY TYPE CODE TESTS RESULT OUT OF RANGE REFERENCE UNITS LAB L506.0400 0.76-1.46 ng/dL Normal T4 FREE 1.15 DIRECT Performed By: #### L500.2500, L501.9520, L506.0400 #### [facility] [address] [place], [address] CHEST PA AND LATERAL Observed: 04/07/2018 Status: F Source: [place] 1:54 PM [facility] REPOSITORY [facility] Imaging Services [address] [place] [address] Chest PA and Lateral MR#: [id number] Acct: [id number] Name: GRACIELA BRITO Rep #: [id number] : 1950 F 68 From: Dave Anderson MD PCP: Bird Garza MD Status: REG CLI Study: Chest PA and Lateral Date of Exam: 04/07/18 Exam# [id number] Ordering Dr: Jose Enrique Macdonald ASSISTANT DIRECTOR OF NURSING-C STUDY: X-RAY CHEST REASON FOR EXAM: Female, 68 years old. Degenerative TECHNIQUE: 2 views COMPARISON: February 06, 2018 FINDINGS: Mild cardiomegaly with median sternotomy wires. No acute pneumonia or failure and no pleural effusions.. Normal visualized thoracic spine. Normal visualized ribs, clavicles, and shoulders. There is no demonstrated abnormality of the visualized soft tissue structures of the upper abdomen. RAD/Chest PA and Lateral IMPRESSION: Moderate cardiomegaly. No acute findings in the lungs Electronically Signed: Dave Anderson, at 6:57 EDT Tel , Service support , CC: VEGA Macdonald; Bird Garza MD Interventional Pain Physician: Signed PROTHROMBIN TIME W/INR Collected: 03/31/2018 Status: F Source: [place]Y 10:14 AM [facility] REPOSITORY Order Comment: PT TO DR. ALLEN TYPE CODE TESTS RESULT OUT OF RANGE REFERENCE UNITS LAB L300.4150 11.7-14.9 SECONDS High PROTIME 32.5 LAB L300.4200 Normal INR 3.1 Performed By: #### L300.3900 #### [facility] [address] [place], [place], [address] BASIC METABOLIC Collected: 03/31/2018 Status: F Source: [place] PROFILE (BMP) 10:13 AM [facility] REPOSITORY TYPE CODE TESTS RESULT OUT OF RANGE REFERENCE UNITS LAB L501.0100 74-106 mg/dL Normal GLU 95 Result Comment: Please note revised GLUCOSE reference range effective 2017. LAB L501.1000 7-18 mg/dL High BUN 23 LAB L501.1100 0.55-1.02 mg/dL High CREAT,SERUM 1.37 Result Comment: The validity of the calculated GFR AND GFRAA in patients over 70 years has not been determined. Clinical correlation is essential. LAB L501.1110 >60 mL/min Low EST GFR 41 Result Comment: Non- GFR Calc LAB L501.1115 >60 mL/min Low EST GFR - AA 49 Result Comment: GFR Calc LAB L501.1300 10-20 RATIO Normal BUN/CRE 16.8 LAB L501.2200 8.5-10.1 mg/dL CA Normal 8.7 LAB L501.5300 136-145 mmol/L NA Normal 140 LAB L501.5600 3.5-5.1 mmol/L K Normal 5.0 LAB L501.5900 98-107 mmol/L CL Normal 104 LAB L501.6100 21.0-32.0 mmol/L Normal CO2 30.0 LAB L501.6200 5-15 Normal GAP 6 Performed By: #### L500.2500, L503.6620 #### [facility] [address] [place], [address] BNP,B-TYPE NATRIURETIC Collected: 03/31/2018 Status: F Source: [place] PEPTIDE 10:13 AM [facility] REPOSITORY TYPE CODE TESTS RESULT OUT OF RANGE REFERENCE UNITS LAB L503.6620 0-100 pg/mL High B-TYPE 371.8 [place] PEP Performed By: #### L500.2500, L503.6620 #### [facility] [address] [place], [address] ECHO, COMPLETE W/ Observed: 03/30/2018 Status: F Source: [place] CONTRAST 6:09 PM [facility] REPOSITORY [facility] Cardiovascular Services [address] [place] [address] Echo Complete W/ Contrast 03/30/18 1408 MR#: [id number] Acct: [id number] Name: GRACIELA BRITO Rep #: [id number] : 1950 68 From: Angel Villalobos MD Attending Dr: Bird Garza MD Status: REG CLI Ordering Dr: Bird Garza MD Date: 03/30/18 Location: [facility] Sex: F C Admitted: Version 2 Reason For Study: SOB Procedure This was a 2D Doppler, Color Flow transthoracic echocardiogram. The study was technically difficult. Exam performed in department. Left Ventricle Normal LV size. The estimated ejection fraction is 45 %. Septal motion consistent with IVCD. Post operative septal motion. Stage 2 diastolic dysfunction. There is mild global hypokinesis of the left ventricle. Right Ventricle Normal RV size. Normal systolic function. Atria Normal left atrium. Normal right atrium. Mitral Valve Normal mitral valve. Mild (1+) eccentric mitral valve insufficiency. Tricuspid Valve Normal tricuspid valve. Mild to moderate (1-2+) tricuspid valve insufficiency. Pulmonary artery systolic pressure is 38 mmHg. Aortic Valve Mean aortic valve gradient is 12 mmHg. Peak aortic valve gradient 20 mmHg. Stable appearing bioprosthetic aortic valve apparatus. Pulmonic Valve The pulmonic valve is not well visualized. Great Vessels Normal aortic root. The pulmonary artery is normal size. Normal inferior vena cava. Pericardium/Pleural No pericardial effusion. Medication 22 gauge I.V. with prn adaptor inserted into right arm. Diluted definity 3ml given slow IV push to enhance endocardial definition. MMode/2D Measurements AND Calculations LVIDd: 5.1 cm IVSd: 0.87 cm LVOT diam: 1.9 cm LVIDs: 3.3 cm LVPWd: 0.93 cm LVOT area: 2.9 cm2 RVDd: 2.9 cm FS: 36.2 % Ao root diam: 2.6 cm LAV(MOD-bp): 52.8 ml LA dimension: 3.6 cm LAV(MOD-bp) Indexed: 29.2 ml/m2 LA A4 area: 18.2 cm2 LAV(MOD-sp2): 52.8 ml LAV(MOD-sp4): 47.2 ml RA A4 area: 18.7 cm2 Time Measurements MV dec time: 0.30 sec Doppler Measurements AND Calculations MV E max masoud: 126.2 cm/sec Lat Peak E' Masoud: 9.7 cm/sec Ao V2 max: 224.0 cm/sec MV A max masoud: 68.3 cm/sec E/E' lat: 13.0 Ao max P.1 mmHg MV E/A: 1.8 Ao V2 mean: 159.0 cm/sec Ao mean P.4 mmHg Ao V2 VTI: 52.8 cm DANA(I,D): 1.3 cm2 DANA(V,D): 1.3 cm2 LV V1 max: 101.4 cm/sec SV(LVOT): 70.2 ml PA V2 max: 114.4 cm/sec LV V1 max P.1 mmHg LV V1 mean P.4 mmHg LV V1 mean: 74.8 cm/sec LV V1 VTI: 24.5 cm TR max masoud: 290.2 cm/sec TR max P.8 mmHg Interpretation Summary Normal LV size. The estimated ejection fraction is 45 %. Post operative septal motion. Stage 2 diastolic dysfunction. There is mild global hypokinesis of the left ventricle. Mild (1+) eccentric mitral valve insufficiency. Compared to the previous the AV has been replaced Contrast injection was performed. Ordering Physician: Bird Garza Referring Physician: Bird Garza Performed By: Amie Aquino RDCS 03/30/18 1808 Date Angel Villalobos MD CC: Bird Garza MD Date Dictated: 03/30/18 1408 Date Transcribed: 03/30/181806 Interventional Pain Physician: Signed OFFICE VISIT REPORT Observed: 03/23/2018 Status: F Source: [place]Y 11:37 AM [place] [address] [place] [address] OFFICE VISIT Date of Service: 03/20/18 MR#: [id number] Acct: [id number] Patient: GRACIELA BRITO Rep #: [id number] : 1950 Provider: Taz Allen MD Age/Sex: 68/F Location: [facility] Status: Signed Intake Vital Signs03/20/18 Blood Pressure 120/60 Intake Visit Reasons: per LL, EKG AND BP Chief Complaint: Follow-up after aortic valve replacement Allergies amiodarone Allergy (Unknown, Verified 12/30/17 14:18) Unknown ciprofloxacin [From Cipro] Allergy (Verified 12/30/17 14:18) Unknown ciprofloxacin HCl [From Cipro] Allergy (Verified 12/30/17 14:18) Unknown insulin glargine, human recombin. a [From Lantus] Allergy (Verified 12/30/17 14:18) Unknown iodine Allergy (Verified 12/30/17 14:18) Hives prednisone Adverse Reaction (Severe, Verified 12/30/17 14:18) Visual changes, glaucoma benjamin Adverse Reaction (Severe, Uncoded 12/30/17 14:18) Neck pain AND tingling Medications Aspirin E.C. [Ecotrin] 162 mg PO DAILY@0800 09/21/16 [History Confirmed 12/23/17] Hydroxychloroquine [Plaquenil] 400 mg PO DAILY 09/21/16 [History Confirmed 12/23/17] Levothyroxine Sodium 50 mcg PO DAILY 09/21/16 [History Confirmed 12/23/17] Clonazepam [Klonopin] 1 mg PO QHS 07/18/17 [History Confirmed 12/23/17] Docusate Sodium [Colace] 100 mg PO DAILY #20 cap 07/18/17 [Rx Confirmed 12/23/17] Sertraline HCl [Zoloft] 50 mg PO DAILY 07/18/17 [History Confirmed 12/23/17] atorvastatin 10 mg tablet 10 mg PO QHS tab 12/12/17 [History Confirmed 12/23/17] calcitriol 0.25 mcg capsule 0.25 mcg PO QDAY 12/12/17 [History Confirmed 12/23/17] warfarin 2.5 mg tablet 2.5 mg PO .COMPLEX 01/09/18 [History Confirmed 03/15/18] diltiazem 120 mg tablet 120 mg PO QDAY #90 tab 01/24/18 [Rx] warfarin 5 mg tablet 5 mg PO .COMPLEX #90 tab 01/24/18 [Rx Confirmed 03/15/18] furosemide 20 mg tablet 20 mg PO QDAY tab 02/16/18 [History] lisinopril 5 mg tablet 5 mg PO DAILY #90 tab 02/16/18 [Rx] magnesium oxide 400 mg tablet 400 mg PO BID #180 tab 03/06/18 [Rx] metoprolol tartrate 25 mg tablet 25 mg PO BID tab 03/15/18 [Rx Confirmed 03/15/18] Assessment AND Plan Orders Orders: Nursing Note Patient here for recheck of BP and heart rate and rhythm with ekg: HR today 60, sinus. BP 120/60. Pt states still sob, hgb on 03/08/[address] Allen said ok for her to resume Cardiac Rehab. No edema noted today, will recheck CBC. 03/23/18 1137 <Electronically signed by Taz Allen MD> Date Taz Allen MD Cosigner Signature: Date (if applicable) CC: Tessy Yusuf Muhammady CBC-COMPLETE BLOOD CNT Collected: 03/20/2018 Status: F Source: [place] NO DIFF 2:25 PM [facility] REPOSITORY TYPE CODE TESTS RESULT OUT OF RANGE REFERENCE UNITS LAB L100.1000 4.4-11.0 K/mm3 Normal WBC 10.3 LAB L100.1200 4.2-5.4 M/mm3 Low RBC 3.38 LAB L100.1300 12.0-15.0 g/dl Low HGB 9.8 LAB L100.1400 37-47 % Low HCT 31.2 LAB L100.1500 81-99 fL Normal MCV 92.3 LAB L100.1600 27.0-32.0 pg Normal MCH 29.0 LAB L100.1700 32-36 g/gl Low MCHC 31.4 LAB L100.1810 11.6-14.6 % High RDW CV 15.5 LAB L100.1820 35.1-43.9 fl High RDW SD 50.7 LAB L100.1900 150-450 K/mm3 Normal PLT 341 LAB L100.2000 6.2-12.0 fl Normal MPV 10.4 Performed By: #### L100.0500 #### [facility] [address] [place], [address] OFFICE VISIT REPORT Observed: 03/20/2018 Status: F Source: REY 1:34 PM [facility] REPOSITORY [facility] [address] [place] [address] OFFICE VISIT Date of Service: 03/15/18 MR#: [id number] Acct: [id number] Patient: GRACIELA BRITO Rep #: [id number] : 1950 Provider: Taz Allen MD Age/Sex: 68/F Location: [facility] Status: Signed Intake Vital Signs03/15/18 Blood Pressure 104/50 Intake Visit Reasons: EKG per DJN Chief Complaint: Follow-up after aortic valve replacement Allergies amiodarone Allergy (Unknown, Verified 12/30/17 14:18) Unknown ciprofloxacin [From Cipro] Allergy (Verified 12/30/17 14:18) Unknown ciprofloxacin HCl [From Cipro] Allergy (Verified 12/30/17 14:18) Unknown insulin glargine, human recombin. a [From Lantus] Allergy (Verified 12/30/17 14:18) Unknown iodine Allergy (Verified 12/30/17 14:18) Hives prednisone Adverse Reaction (Severe, Verified 12/30/17 14:18) Visual changes, glaucoma benjamin Adverse Reaction (Severe, Uncoded 12/30/17 14:18) Neck pain AND tingling Medications Aspirin E.C. [Ecotrin] 162 mg PO DAILY@0800 09/21/16 [History Confirmed 12/23/17] Hydroxychloroquine [Plaquenil] 400 mg PO DAILY 09/21/16 [History Confirmed 12/23/17] Levothyroxine Sodium 50 mcg PO DAILY 09/21/16 [History Confirmed 12/23/17] Clonazepam [Klonopin] 1 mg PO QHS 07/18/17 [History Confirmed 12/23/17] Docusate Sodium [Colace] 100 mg PO DAILY #20 cap 07/18/17 [Rx Confirmed 12/23/17] Sertraline HCl [Zoloft] 50 mg PO DAILY 07/18/17 [History Confirmed 12/23/17] atorvastatin 10 mg tablet 10 mg PO QHS tab 12/12/17 [History Confirmed 12/23/17] calcitriol 0.25 mcg capsule 0.25 mcg PO QDAY 12/12/17 [History Confirmed 12/23/17] warfarin 2.5 mg tablet 2.5 mg PO .COMPLEX 01/09/18 [History Confirmed 03/15/18] diltiazem 120 mg tablet 120 mg PO QDAY #90 tab 01/24/18 [Rx] warfarin 5 mg tablet 5 mg PO .COMPLEX #90 tab 01/24/18 [Rx Confirmed 03/15/18] furosemide 20 mg tablet 20 mg PO QDAY tab 02/16/18 [History] lisinopril 5 mg tablet 5 mg PO DAILY #90 tab 02/16/18 [Rx] magnesium oxide 400 mg tablet 400 mg PO BID #180 tab 03/06/18 [Rx] metoprolol tartrate 25 mg tablet 25 mg PO BID tab 03/15/18 [Rx Confirmed 03/15/18] Nurse's Note: Patient called: this am at home, HR was in the 120's and she could feel that she was back in atrial fib, irregular. Dr. Allen ordered to increase Metoprolol to 25 mg po bid. Pt took a dose. At Cardiac Rehab this pm, Mouna Coombs RN reported HR was 68 and sinus before exercise, then 130-160's after exercise started. She sent her to our office for ekg, which showed HR 98, atrial fib. Dr. Allen notified, ordered for pt to continue the Metoprolol 25 po bid, and current dose of Diltiazem and other meds including Coumadin. She is to HOLD Cardiac Rehab for 1 week until we see if HR stabilizes. She is coming to office Tuesday03/20/18 for BP check and repeat ekg. Instructions written and reviewed for pt. She is also getting an INR done today. Assessment AND Plan Medications Changed: 03/20/18 1334 <Electronically signed by Taz Allen MD> Date Taz Allen MD Cosigner Signature: Date (if applicable) CC: Tessy Castillo PROTHROMBIN TIME W/INR Collected: 03/15/2018 Status: F Source: [place] 1:55 PM [facility] REPOSITORY TYPE CODE TESTS RESULT OUT OF RANGE REFERENCE UNITS LAB L300.4150 11.7-14.9 SECONDS High PROTIME 30.1 LAB L300.4200 Normal INR 2.9 Performed By: #### L300.3900 #### [facility] [address] [place], [place], [address] CBC W/DIFF, AUTOMATED Collected: 03/08/2018 Status: F Source: [place] 10:56 AM [facility] REPOSITORY Order Comment: INR FOR DR ALLEN REST FOR DR GARZA TYPE CODE TESTS RESULT OUT OF RANGE REFERENCE UNITS LAB L100.1000 4.4-11.0 K/mm3 Normal WBC 6.5 LAB L100.1200 4.2-5.4 M/mm3 Low RBC 3.82 LAB L100.1300 12.0-15.0 g/dl Low HGB 10.7 LAB L100.1400 37-47 % Low HCT 35.4 LAB L100.1500 81-99 fL Normal MCV 92.7 LAB L100.1600 27.0-32.0 pg Normal MCH 28.0 LAB L100.1700 32-36 g/gl Low MCHC 30.2 LAB L100.1810 11.6-14.6 % High RDW CV 15.8 LAB L100.1820 35.1-43.9 fl High RDW SD 53.1 LAB L100.1900 150-450 K/mm3 Normal PLT 245 LAB L100.2000 6.2-12.0 fl Normal MPV 10.2 LAB L100.2100 47-70 % Normal NEUT% 60.6 LAB L100.2200 19-41 % Normal LY% 27.0 LAB L100.2300 0-10 % Normal MONO% 9.9 LAB L100.2400 0-5 % Normal EO% 1.7 LAB L100.2500 0-1 % Normal BASO% 0.6 LAB L100.2550 0.0-0.9 % Normal IM GRAN % 0.200 Result Comment: IG% - Immature Granulocytes (promyelocytes, myelocytes and metamyelocytes) > 1% indicates that a LEFT SHIFT is Present. LAB L100.2620 2.0-7.7 X10 3/uL Normal Absolute Neut 3.9 LAB L100.2720 0.83-4.51 X10 3/ul Normal Absolute Lymph 1.75 Performed By: #### L100.0100 #### [facility] [address] [facility] [place], [address] PROTHROMBIN TIME W/INR Collected: 03/08/2018 Status: F Source: [place] 10:56 AM [facility] REPOSITORY Order Comment: INR FOR DR ALLEN REST FOR DR GARZA TYPE CODE TESTS RESULT OUT OF RANGE REFERENCE UNITS LAB L300.4150 11.7-14.9 SECONDS High PROTIME 21.5 LAB L300.4200 Normal INR 1.9 Performed By: #### L300.3900 #### [facility] [address] [place], [address] MICROALB:CREAT Collected: 03/08/2018 Status: F Source: REY RATIO,RANDOM UR 10:56 AM [facility] REPOSITORY Order Comment: INR FOR DR ALEJANDRO MCLEAN FOR DR GARZA TYPE CODE TESTS RESULT OUT OF RANGE REFERENCE UNITS LAB L501.1200 NO RANGE EST. mg/dL Normal UR CREAT 111.00 LAB L502.0500 NO RANGE EST. mg/L Normal 20.4 MICROALBUMIN ,UR LAB L502.0600 <30 mg/g CRE mg/g CRE Normal 18.4 MALB:CREAT Performed By: #### L502.0250 #### [facility] [address] [place], [address] BASIC METABOLIC Collected: 03/08/2018 Status: F Source: [place] PROFILE (BMP) 10:56 AM [facility] REPOSITORY Order Comment: INR FOR DR ALEJANDRO MCLEAN FOR DR GARZA TYPE CODE TESTS RESULT OUT OF RANGE REFERENCE UNITS LAB L501.0100 74-106 mg/dL Normal GLU 88 Result Comment: Please note revised GLUCOSE reference range effective 2017. LAB L501.1000 7-18 mg/dL Normal BUN 14 LAB L501.1100 0.55-1.02 mg/dL Normal CREAT,SERUM 1.01 Result Comment: The validity of the calculated GFR AND GFRAA in patients over 70 years has not been determined. Clinical correlation is essential. LAB L501.1110 >60 mL/min Low EST GFR 58 Result Comment: Non- GFR Calc LAB L501.1115 >60 mL/min Normal EST GFR - AA 70 Result Comment: GFR Calc LAB L501.1300 10-20 RATIO Normal BUN/CRE 13.9 LAB L501.2200 8.5-10.1 mg/dL CA Normal 8.7 LAB L501.5300 136-145 mmol/L NA Normal 142 LAB L501.5600 3.5-5.1 mmol/L K Normal 4.7 LAB L501.5900 98-107 mmol/L CL Normal 105 LAB L501.6100 21.0-32.0 mmol/L Normal CO2 30.0 LAB L501.6200 5-15 Normal GAP 7 Performed By: #### L500.2500, L500.3400, L500.4100, L501.9520 #### [facility] [address] [facility] [id number] LIVER PROFILE Collected: 03/08/2018 Status: F Source: [place] 10:56 AM [facility] REPOSITORY Order Comment: INR FOR DR ALEJANDRO MCLEAN FOR DR GARZA TYPE CODE TESTS RESULT OUT OF RANGE REFERENCE UNITS LAB L501.1500 6.4-8.2 g/dL Normal T PROT 7.1 LAB L501.1800 3.2-5.0 g/dL Normal ALB 3.3 LAB L501.1950 2.2-4.2 g/dL Normal GLOB 3.8 LAB L501.4100 15-37 U/L Normal AST 18 LAB L501.4305 45-117 U/L Normal ALK P 77 LAB L501.4405 13-56 U/L Normal ALT 17 LAB L501.4600 0.20-1.00 mg/dL Normal T BILI 0.30 LAB L501.4700 0.00-0.30 mg/dL Normal D BILI 0.08 Performed By: #### L500.2500, L500.3400, L500.4100, L501.9520 #### [facility] [address] [place], [place], [id number] LIPID PROFILE Collected: 03/08/2018 Status: F Source: [place] 10:56 AM [facility] REPOSITORY Order Comment: INR FOR DR ALEJANDRO MCLEAN FOR DR GARZA TYPE CODE TESTS RESULT OUT OF RANGE REFERENCE UNITS LAB L501.4900 200 mg/dL Normal CHOL 116 Result Comment: <200 mg/dL Desirable 200-240 mg/dL Borderline >240 mg/dL High Risk LAB L501.5000 mg/dL Normal TRIG 100 Result Comment: The drugs N-Acetylcysteine and Metamizole may falsely depress this assay. Serum Triglycerides Reference Interval Normal <150 mg/dL Borderline high 150 - 199 mg/dL High 200 - 499 mg/dL Very High > or = 500 mg/dL LAB L501.6400 mg/dL Normal HDL 45 Result Comment: The drugs N-Acetylcysteine and Metamizole may falsely depress this assay. Reference Range HDL <40 mg/dL Low HDL Cholesterol HDL >or= 60 mg/dL High HDL Cholesterol LAB L501.6500 0-130 mg/dL Normal LDL 51 LAB L501.6600 5-40 mg/dL Normal VLDL 20 Performed By: #### L500.2500, L500.3400, L500.4100, L501.9520 #### [facility] [address] [place], [address] THYROID STIM HORMONE Collected: 03/08/2018 Status: F Source: [place] (TSH) 10:56 AM [facility] REPOSITORY Order Comment: INR FOR DR ALLEN REST FOR DR GARZA TYPE CODE TESTS RESULT OUT OF RANGE REFERENCE UNITS LAB L501.9520 0.358-3.74 uIU/mL Normal TSH 2.76 Performed By: #### L500.2500, L500.3400, L500.4100, L501.9520 #### [facility] [address] [place], [address] PROTHROMBIN TIME W/INR Collected: 02/15/2018 Status: F Source: [place] 12:37 PM [facility] REPOSITORY TYPE CODE TESTS RESULT OUT OF RANGE REFERENCE UNITS LAB L300.4150 11.7-14.9 SECONDS High PROTIME 28.7 LAB L300.4200 Normal INR 2.7 Performed By: #### L300.3900 #### [facility] [address] [facility] [place], [address] CHEST PA AND LATERAL Observed: 02/06/2018 Status: F Source: [place] 2:05 PM [facility] REPOSITORY [facility] [address] [place] [address] Chest PA and Lateral MR#: [id number] Acct: [id number] Name: GRACIELA BRITO Rep #: [id number] : 1950 F 67 From: Merrill Dennis DO PCP: Bird Garza MD Status: REG CLI Study: Chest PA and Lateral Date of Exam: 02/06/18 Exam# [id number] Ordering Dr: Taz Allen MD STUDY: X-RAY CHEST REASON FOR EXAM: Female, 67 years old. Open-heart surgery 6 days ago. Right-sided pleural effusion. TECHNIQUE: PA and lateral views of the chest. COMPARISON: October 18, 2017. FINDINGS: The lungs are well-expanded. There is a right pleural effusion with right basilar atelectasis. The lungs are otherwise clear. There is no demonstrated pleural abnormality. There is no median sternotomy wires. The heart remains normal in size. Normal mediastinum and armando. Normal visualized pulmonary arteries. Normal visualized aortic arch and descending thoracic aorta. There are diffuse degenerative changes of the visualized thoracic spine. There is degenerative osteoarthritis of the bilateral shoulders. There is no demonstrated abnormality of the visualized soft tissue structures of the upper abdomen. RAD/Chest PA and Lateral IMPRESSION: 1. Interval median sternotomy with compared to October 18, 2017. 2. Small right pleural effusion and atelectasis not previously noted. Electronically Signed: Merrill Dennis DO at 14:55 EDT Tel [phone], Service support , CC: Taz Allen MD; Bird Garza MD Interventional Pain Physician: Signed PROTHROMBIN TIME W/INR Collected: 02/01/2018 Status: F Source: [place] 12:33 PM [facility] REPOSITORY TYPE CODE TESTS RESULT OUT OF RANGE REFERENCE UNITS LAB L300.4150 11.7-14.9 SECONDS High PROTIME 26.0 LAB L300.4200 Normal INR 2.4 Performed By: #### L300.3900 #### [facility] [address] [place], [place], [address] PROTHROMBIN TIME W/INR Collected: 01/25/2018 Status: F Source: [place] 11:46 AM [facility] REPOSITORY TYPE CODE TESTS RESULT OUT OF RANGE REFERENCE UNITS LAB L300.4150 11.7-14.9 SECONDS High PROTIME 22.0 LAB L300.4200 Normal INR 1.9 Performed By: #### L300.3900 #### [facility] [address] [place], [address] OBSOLETE Observed: 01/25/2018 Status: COMPLETED Source: [place] 12:00 AM CLINIC OTHER [facility]AMP[facility] REPOSITORY Refill (AGVASACC) GRACIELA BRITO ([id number]) 1950 F Date Time Provider Department 01/25/18 LUKE LESTER AGVASACC During your visit today, we recorded the following information about you: Ray Hull LPN 01/25/2018 10:55 AM Signed Rx mail pharmacy faxed requesting the following refill Pending Prescriptions Disp Refills ATORVASTATIN 10 MG TABLET 30 tablet 3 Sig: Take 1 tablet by mouth daily at bedtime. CHIRAG: No Allergies: Cipro [Ciprofloxacin]; Contrast Dye; Humira [Adalimumab]; Lantus [Insulin Glargine]; Zithromax [Azithromycin] (home) [phone] (cell) Last Visit date: 12/29/2017 Future appointment: Unknown The patients preferred pharmacy has been captured for this encounter? yes Request is for script(s) to be escript to pharmacy. Ray Hull LPN2 Allergies As of Date: 01/25/2018 Noted Allergy Reaction CIPRO (CIPROFLOXACIN) 11/26/2008 4 - Hives CONTRAST DYE 01/01/2009 4 - Hives HUMIRA (ADALIMUMAB) 11/16/2017 12 - Shortness of Breath LANTUS (INSULIN GLARGINE) 01/01/2009 7 - Swelling Comments: 11/2017: per patient, in 2009 experienced throat swelling with Lantus. Has previously used Levemir without problems. ZITHROMAX (AZITHROMYCIN) 01/01/2009 4 - Hives Date Reviewed: 12/29/2017 Reviewed by: Sophie Roberson (Carmel), COLLAR SHAPER OPERATOR.DRY HEAT ROOM ATTENDANT - Fully Assessed Reason for Visit: Refill Request [94] Order(s):atorvastatin (LIPITOR) 10 mg tabletTake 1 tablet by mouth daily at bedtime.Disp: 30 tabletRfl: 3 Prescriptions as of 01/25/2018 Sig: ATORVASTATIN 10 MG TABLET Take 1 tablet by mouth daily * METOPROLOL TARTRATE 25 MG TAB* Take 12.5 mg by mouth twice d* WARFARIN 5 MG TABLET DILTIAZEM 120 MG TABLET Take 1 tablet by mouth twice * FUROSEMIDE 20 MG TABLET Take 1 tablet by mouth once d* ACETAMINOPHEN 325 MG TABLET Take 2 tablets by mouth every* ASPIRIN 81 MG TABLET,DELAYED * Take 2 tablets by mouth once * LISINOPRIL 10 MG TABLET Take 1 tablet by mouth once d* MAGNESIUM OXIDE 400 MG TABLET Take 1 tablet by mouth twice * SENNOSIDES 8.6 MG-DOCUSATE SO* Take 1 tablet by mouth twice * WARFARIN 2.5 MG TABLET Take 1 tablet by mouth daily * CALCITRIOL 0.25 MCG CAPSULE Take 0.25 mcg by mouth 3 time* CLONAZEPAM 1 MG TABLET Take 1 mg by mouth daily at b* LEVOTHYROXINE 50 MCG TABLET Take 50 mcg by mouth once walter* HYDROXYCHLOROQUINE 200 MG TAB* Take 400 mg by mouth once walter* FOLIC ACID 1 MG TABLET Take 1 mg by mouth once daily. HYDROCHLOROTHIAZIDE 25 MG TAB* Take 25 mg by mouth once nelia* * ZOLOFT 50 MG TABLET Take one(1) tablet daily. Problem List As Of Date 01/25/2018 Noted Resolved Aortic valve stenosis [I35.0] INVALID FOR* More... Obesity, Class III, BMI >= 40 E66.01 [E66.01] INVALID FOR* S/P AVR (aortic valve replacement) and aortopla*INVALID FOR* Prescriptions ordered this encounter Disp Refills Start End ATORVASTATIN 10 MG TABLET 30 t* 3 01/25/2018 Route: ORAL Sig: Take 1 tablet by mouth daily at bedtime. Medications Discontinued During This Encounter atorvastatin (LIPITOR) 10 mg tablet 30 t* 3 12/04/2017 01/25/2018 Class: Print RX Route: ORAL Sig: Take 1 tablet by mouth daily at bedtime. Disc: Reason for discontinue is not on file. Encounter Status:Closed by NAHED MACHADO CNP on 01/25/18 PROTHROMBIN TIME W/INR Collected: 01/16/2018 Status: F Source: [place] 12:40 PM [facility] REPOSITORY TYPE CODE TESTS RESULT OUT OF RANGE REFERENCE UNITS LAB L300.4150 11.7-14.9 SECONDS High PROTIME 19.6 LAB L300.4200 Normal INR 1.7 Performed By: #### L300.3900 #### [facility] [address] [place], [address] PROTHROMBIN TIME W/INR Collected: 01/09/2018 Status: F Source: [place] 12:10 PM [facility] REPOSITORY TYPE CODE TESTS RESULT OUT OF RANGE REFERENCE UNITS LAB L300.4150 11.7-14.9 SECONDS High PROTIME 20.0 LAB L300.4200 Normal INR 1.7 Performed By: #### L300.3900 #### [facility] [address] [place], [address] PROTHROMBIN TIME W/INR Collected: 01/02/2018 Status: F Source: [place] 12:26 PM [facility] REPOSITORY Order Comment: Comments: Standing Order TYPE CODE TESTS RESULT OUT OF RANGE REFERENCE UNITS LAB L300.4150 11.7-14.9 SECONDS High PROTIME 17.5 LAB L300.4200 Normal INR 1.4 Performed By: #### L300.3900 #### [facility] [address] [place], [address] CARDIOLOGY VISIT Observed: 12/30/2017 Status: F Source: [place] REPORT 2:53 PM [facility] REPOSITORY [facility] [place] [address] OFFICE VISIT Date of Service: 12/30/17 MR#: [id number] Acct: [id number] Name: GRACIELA BRITO Rep #: [id number] : 1950 Provider: Taz Allen MD Age/Sex: 67/F Location: [facility] Status: Signed HPI HPI Chief Complaint: Follow-up after aortic valve replacement Details: Referring physician Dr. Bird Garza Mrs. Brito is a very pleasant 67-year-old morbidly obese, nonsmoking female, smoked about 3 years as a teenager, borderline diabetic had been on diabetic medicines in the past, with a known history of mild aortic stenosis. The patient has seen Dr. Villalobos in the past, and wanted to reestablish care. Patient was found to have an aortic valvular murmur by her PCP and was referred to our office for evaluation. Specifically the patient has had nonexercise stress test the last one being on 06/17/14 which was negative for inducible ischemia. She is had several catheterizations most recent of which was 05/21/[address] Villalobos at [facility]. At that time she basically had no significant coronary disease and a normal LVEF. She's had several echoes starting in 06/17/14 which showed mild aortic stenosis with a peak and mean gradient of 38/23 mmHg giving an estimated DANA of 1.2 cm . Repeat echocardiogram dated 03/16/16 showed an EF of 65% and an DANA of 1.0 cm , with a peak/mean gradient of 51/28 mmHg, and RVSP of 21 mmHg.. Her mean mitral gradient was 1.8 mm Hg giving an estimated MVA of 2.7 cm . Her EF was 65% and RVSP was estimated to be 30 mmHg. At her last visit, the patient reported decreased exercise capacity over the several months.She has had no syncopal episodes. She has a strong positive family history with a myocardial infarction in her brother at age 45 who required CABG, and in her father at age 63 who of [place]. she underwent left her catheterization and 09/22/16 which demonstrated hypertension, and Non obstructive coronary disease, mild pulmonary hypertension by right heart cath, and moderate aortic stenosis by peak to peak pullback. Patient had severe hypertension was treated with isosorbide, lisinopril and HCTZ and is now here in follow-up. She has a known history of sleep apnea, but recently underwent repeat sleep study and was found require adjustments to her bilevel settings. This is being managed by Dr. Bales. since her last visit she feels much better after having her BiPAP adjusted. She has some diffuse myalgias in both calves after taking her Zocor at night and is already on vitamin D Patient had initially improved with medical therapy but then developed recurrent shortness of breath and dyspnea on exertion. Repeat echocardiogram dated 10/05/17 showed an EF of 65%, stage II diastolic dysfunction, RVSP of 34 mmHg, and monitor severe aortic stenosis with a peak/mean gradient of 58/33 mmHg given an estimated aortic valve area of 0.84 cm . Patient's RVSP had worsened since her last echocardiogram and given her symptoms she was referred to Dr. Love for aortic valve replacement. On 11/28/17 the patient underwent successful aortic valve replacement with a #21 mm [place] trifecta pericardial prosthesis, as well as aortic root enlargement with an autologous pericardium. She did not require any bypass surgery. Patient was subsequently discharged and sent to rehab. Apparently she developed postoperative atrial fibrillation and was started on Coumadin therapy as well as diltiazem and lopressor. Patient was in the hospital for about a week, was discharged home, and the patient visited [facility] ER on 12/23/17 for lightheadedness, dizziness, and hypotension. Her Lopressor was adjusted to 12.5 mg p.o. twice daily, and her Cardizem was continued. She feels now much better and is awaiting to start cardiac rehab this Tuesday. The patient actually looks very good with respect to her recent surgery. In our office today her blood pressure is 132/64, pulse is 64 and regular. Physical exam is as below. Intake Vital Signs12/30/17 Height 4 ft 9 in 12/30/17 Weight: 215 lb 12/30/17 Body Mass Index (BMI) 46.5 12/30/17 Blood Pressure 132/64 12/30/17 Pulse Rate 64 Intake Visit Reasons: S/P AVR (LAHORRA) Allergies amiodarone Allergy (Unknown, Verified 12/30/17 14:18) Unknown ciprofloxacin [From Cipro] Allergy (Verified 12/30/17 14:18) Unknown ciprofloxacin HCl [From Cipro] Allergy (Verified 12/30/17 14:18) Unknown insulin glargine, human recombin. a [From Lantus] Allergy (Verified 12/30/17 14:18) Unknown iodine Allergy (Verified 12/30/17 14:18) Hives prednisone Adverse Reaction (Severe, Verified 12/30/17 14:18) Visual changes, glaucoma benjamin Adverse Reaction (Severe, Uncoded 12/30/17 14:18) Neck pain AND tingling Medications Aspirin E.C. [Ecotrin] 162 mg PO DAILY@0800 09/21/16 [History Confirmed 12/23/17] Hydroxychloroquine [Plaquenil] 400 mg PO DAILY 09/21/16 [History Confirmed 12/23/17] Levothyroxine Sodium 50 mcg PO DAILY 09/21/16 [History Confirmed 12/23/17] Clonazepam [Klonopin] 1 mg PO QHS 07/18/17 [History Confirmed 12/23/17] Docusate Sodium [Colace] 100 mg PO DAILY #20 cap 07/18/17 [Rx Confirmed 12/23/17] Sertraline HCl [Zoloft] 50 mg PO DAILY 07/18/17 [History Confirmed 12/23/17] atorvastatin 10 mg tablet 10 mg PO QHS tab 12/12/17 [History Confirmed 12/23/17] calcitriol 0.25 mcg capsule 0.25 mcg PO QDAY 12/12/17 [History Confirmed 12/23/17] magnesium oxide 400 mg tablet 400 mg PO BID tab 12/13/17 [History Confirmed 12/23/17] furosemide 20 mg tablet 20 mg PO BID #60 tab 12/20/17 [Rx Confirmed 12/23/17] diltiazem 120 mg tablet 120 mg PO QDAY #90 tab 12/23/17 [Rx Confirmed 12/23/17] lisinopril 10 mg tablet 5 mg PO DAILY tab 12/23/17 [History Confirmed 12/23/17] metoprolol tartrate 25 mg tablet 25 mg PO .COMPLEX #30 tab 12/26/17 [Rx] warfarin 2.5 mg tablet 2.5 mg PO .COMPLEX 12/26/17 [History] warfarin 5 mg tablet 5 mg PO .COMPLEX 12/26/17 [History] 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) Postoperative atrial fibrillation (Acute) Secondary pulmonary arterial hypertension (Chronic) Dyspnea (Chronic) Obesity (BMI 30.0-34.9) (Chronic) Central apnea (Chronic) Non-rheumatic aortic stenosis (Chronic) Surgical History History of right and left heart catheterization (Chronic 09/22/16) S/P AVR (aortic valve replacement) (Acute 11/28/17) Bilateral carpal tunnel syndrome (Chronic) History of partial hysterectomy (Chronic) History of right knee joint replacement (Chronic) History of tonsillectomy (Chronic) Hx of cholecystectomy (Chronic) Family History Brother CAD (coronary artery disease) CABG age 45 Father CAD (coronary artery disease) from [place] age 63 Mother Hypertension Cancer Sister Cancer Social History Smoking Status: Former smoker alcohol intake: current alcohol intake frequency: holidays/special occasions only Alcohol type: wine substance use type: does not use caffeine: Yes Type: coffee what type of physical activity do you participate in: none seatbelt use: always do you feel safe at home: Yes ROS Const Const: Negative for fatigue, weakness, difficulty sleeping, frequent falls, headache(s) or excessive sweating Eyes Eyes: Negative for loss of peripheral vision, transient loss of vision, blurry vision or double vision ENT ENT: Negative for headache(s), dizziness, Nosebleed/epistaxis or balance problems Cardio Chest Pain: No Edema: None Muscle aches with walking: None Resp Respiratory: Positive for SOB with activity and crackles (fine crackles right base); negative for SOB at rest, SOB orthopnea\SOB lying down or paroxysmal nocturnal dyspnea GI GI: Negative nausea or heartburn : Negative for hematuria Musc Musc: Negative for muscle aches/ myalgia, muscle weakness, joint pain or balance problems Skin Skin: Negative non-healing lesions, unusual bruising or rash Neuro Neuro: Negative for weakness, frequent falls, blurry vision, headache(s), dizziness, lightheadedness, orthostatic symptoms or double vision Nguyễn Hematologic/Lymphatic: Negative for easy bruising Endo Endo: Negative for fatigue, excessive sweating or increased thirst/drinking Psych Psych: Negative for anxiety or depression Allergy Allergy/Immunology: Negative for hives, Negative for rash Cardiology Exam Const Appearance: cooperative, healthy appearing and no acute distress Nutritional Appearance: well nourished Orientation: alert, oriented x3 and oriented to person Head Head: normal to inspection, atraumatic and normocephalic Nose: external nose normal Face and Sinus: face symmetric Mouth: oral mucosae normal Eyes General: appearance normal, both eyes and all related structures Eyelids: eyelids normal Conjunctivae: conjunctivae normal Pupils: PERRL and normal by confrontation EOM: EOM intact bilaterally Neck Neck: normal visual inspection and full ROM Carotids: normal carotid upstroke Chest Chest inspection: normal inspection of the chest Auscultation: Bilateral: Clear to Auscultation Cardio Palpation: normal PMI Rate: regular rate Rhythm: regular rhythm Heart sounds: S1 normal and S2 normal GI GI: normal to inspection, no hepatosplenomegaly and bowel sounds present Neuro General: alert, oriented x3, awake, CN's II-XI intact bilaterally and moves all extremities Skin Skin: no rashes or lesions noted Extremities Pulses: Normal: Right Femoral Pulse, Left Femoral Pulse, Right Dorsalis Pedis Pulse, Left Dorsalis Pedis Pulse, Right Posterior Tibial Pulse, Left Posterior Tibial Pulse, Right Radial Pulse, Left Radial Pulse Lower Extremity Edema: None: Bilateral Psych Psychological: normal affect Assessment AND Plan 1. S/P AVR (aortic valve replacement) Z95.2 11/28/[address] Trifecta AVR (bioprosthetic) with pericordial patch for aortic root dilatation, per Dr. Lester @ [facility] Plan 1. Status post aortic valve replacement: The patient is doing quite well postoperatively, and believe it is appropriate for her to proceed with cardiac rehab. She will start this this upcoming Tuesday. Recommend that she continue her Cardizem and Lopressor at this time. Do not believe she requires repeat echocardiogram at this time. Hopefully with cardiac rehab we can decrease her Cardizem or eliminated completely. 2. Atrial fibrillation: The patient had paroxysmal atrial fibrillation postprocedure, and currently is in normal sinus rhythm on physical exam as well as EKG this past Tuesday. Recommend continuing her on diltiazem, beta-noemi, and warfarin. If she remains in sinus rhythm during her cardiac rehab, we will discontinue her Coumadin. 2. Pure hypercholesterolemia E78.00 Plan 3. Hyperlipidemia: Continue Lipitor therapy. We will repeat her lipid profile at the conclusion of cardiac rehab. 4. Return office in 3 months. This note was generated using a voice recognition system and there may be incorrect words, spelling or punctuation that were not noted when reviewing the office note prior to saving. Plan Detail Follow Up +3 months (Alejandro or ROBLES) Coding Level of Care Code Off vis,est,level 3 Diagnoses S/P AVR (aortic valve replacement) Z95.2 Pure hypercholesterolemia E78.00 Hyperlipidemia type: pure hypercholesterolemia Coding Level of Care Code Off vis,est,level 3 Diagnoses S/P AVR (aortic valve replacement) Z95.2 Pure hypercholesterolemia E78.00 Hyperlipidemia type: pure hypercholesterolemia 12/30/17 1453 <Electronically signed by Taz Allen MD> Date Taz Allen MD Cosigner Signature: Date (if applicable) CC: PROGRESS Observed: 12/29/2017 Status: COMPLETED Source: [place] 11:25 AM [facility] OTHER CAMPUS REPOSITORY O ID: [id number] Author: Sophie (Infrastructure Director) YUSEF Roberson.CARMEL Service: (none) Author Type: Nurse Practitioner Type: Progress Notes Filed: 12/29/2017 12:49 PM Note Text: HPI: Graciela Brito is a 67 year old female that returns to the office today for 1 month post-discharge follow up for s/p Aortic valve replacement with #21 [facility] Trifecta bioprosthetic valve performed on 11/28/2017 by . Her post-operative course was complicated by post-op atrial fibrillation which recurred on 12/03- was sent home on Warfarin; anticipated pulmonary insufficiency; and volume overload-managed by daily lasix and resumed on Hydrochlorothiazide. She was discharged home with [facility] on 12/04 in NSR. She was found to have paroxysmal A fib with RVR during her 1 week visit with Nahed and was managed by starting Diltiazem 120 mg BID with BB reduced to 50 BID. Patient had bradycardia later, then medications were adjusted to daily Cardizem 120 mg. She has been following Dr. Allen closely for her cardiac medical management. Today, patient is visited with her and her daughter. She denied any new episodes of dizziness or syncope, no chest pain, palpitations, BP has been well control per patient. Tolerating diet well without changing bowel habits. No fever, chills. Has been engaging in more activities at home with some MATOS. Per patient recalled, her SOB has improved overtime. Patient seems to be pleased with her overall recovery. Patient's tolerating post surgical pain with pain medications: she takes percocet about one tab at nighttime, and only tylenol during the day. She rates her sternotomy pain an average of 5/10. More movement induced pain on her right chest. Subjective: Current Outpatient Prescriptions: metoprolol tartrate, short acting, (LOPRESSOR) 25 mg tablet Take 12.5 mg by mouth twice daily. oxyCODONE-acetaminophen (PERCOCET) 5-325 mg tablet Take 1 tablet by mouth every 4 hours as needed. warfarin (COUMADIN) 5 mg tablet diltiazem (CARDIZEM) 120 mg tablet Take 1 tablet by mouth twice daily. furosemide (LASIX) 20 mg tablet Take 1 tablet by mouth once daily for 30 doses. acetaminophen (TYLENOL) 325 mg tablet Take 2 tablets by mouth every 6 hours as needed. atorvastatin (LIPITOR) 10 mg tablet Take 1 tablet by mouth daily at bedtime. aspirin, enteric coated (ASPIRIN, ENTERIC COATED) 81 mg EC tablet Take 2 tablets by mouth once daily. lisinopril (ZESTRIL, PRINIVIL) 10 mg tablet Take 1 tablet by mouth once daily. magnesium oxide (MAG-OX) 400 mg tablet Take 1 tablet by mouth twice daily. senna-docusate (SENNA-S) 8.6-50 mg per tablet Take 1 tablet by mouth twice daily. warfarin (COUMADIN) 2.5 mg tablet Take 1 tablet by mouth daily as directed. Take 5 mg today, then 2.5 mg daily. calcitriol (ROCALTROL) 0.25 mcg capsule Take 0.25 mcg by mouth 3 times a WEEK. clonazePAM (KLONOPIN) 1 mg tablet Take 1 mg by mouth daily at bedtime. levothyroxine (SYNTHROID) 50 mcg tablet Take 50 mcg by mouth once daily. hydroxychloroquine (PLAQUENIL) 200 mg tablet Take 400 mg by mouth once daily. hydroCHLOROthiazide (HYDRODIURIL, ESIDRIX) 25 mg tablet Take 25 mg by mouth once daily. sertraline hcl(ZOLOFT 50 MG TAB) Take one(1) tablet daily. folic acid 1 mg tablet Take 1 mg by mouth once daily. No current facility-administered medications for this visit. Cipro [Ciprofloxacin]; Contrast Dye; Humira [Adalimumab]; Lantus [Insulin Glargine]; Zithromax [Azithromycin] PAST MEDICAL HISTORY Diagnosis Date - Aortic valve disorders ? followed by PCP - Central apnea - Diabetes mellitus without mention of complication Diabetes mellitus/ RESOVED PER PATIENT - Dyspnea - History of Sjogren's disease - Hypothyroidism - Mixed hyperlipidemia Hyperlipidemia - Myalgia and myositis, unspecified - Nerve damage LEFT ARM - Obesity (BMI 30-39.9) - Rheumatoid arthritis(714.0) - Secondary pulmonary arterial hypertension (HCC) - Unspecified sleep apnea PAST SURGICAL HISTORY Procedure Laterality Date - CARDIAC CATH 10/26/2017 [facility] - DELIVERY ONLY 1969 , low cervical - PAST SURGICAL HISTORY OF 11/28/2017 AVR - REMOVAL GALLBLADDER 1971 Cholecystectomy - REMOVAL OF TONSILS,<13 Y/O 1976 Tonsillectomy - REVISE MEDIAN N/CARPAL TUNNEL SURG Bilateral 90' Carpal tunnel decomp - TOTAL ABDOM HYSTERECTOMY 1975 Hysterectomy, DIANDRA - TOTAL KNEE REPLACEMENT Right 2004 Knee replacement, total FAMILY HISTORY Problem Relation Age of Onset - positive [OTHER] Other Sister with MS - Cancer Mother - Coronary Artery Disease Father 63 from [place] - Cervical Cancer Sister - Coronary Artery Disease Brother 45 CABG - Cancer Brother Social History Substance Use Topics - Smoking status: Former Smoker Packs/day: 1.00 Years: 5.00 Types: Cigarettes Quit date: 11/16/1987 - Smokeless tobacco: Never Used Comment: quit 30 yrs ago - Alcohol use No Review of Systems Constitutional: Negative for chills, fever, malaise/fatigue and weight loss. HENT: Negative for sore throat. Respiratory: Positive for shortness of breath. Negative for cough, sputum production and wheezing. has improved Cardiovascular: Negative for chest pain, palpitations, orthopnea, claudication, leg swelling and PND. Gastrointestinal: Negative for abdominal pain, blood in stool, constipation, diarrhea, melena, nausea and vomiting. Genitourinary: Negative for dysuria. Musculoskeletal: Negative for falls and joint pain. Skin: No new lesions Neurological: Negative for dizziness, tingling, sensory change, focal weakness, weakness and headaches. Endo/Heme/Allergies: Does not bruise/bleed easily. Psychiatric/Behavioral: Negative for depression. Objective: One month post- op Chest X-ray is done and reviewed today. Reviewed with Dr. Lester. Physical Examination: Vitals:BP 132/64 Pulse 65 Resp 12 Ht 4' 9 (1.45m) Wt 214 lb (97.1kg) SpO2 94% BMI 46.30 kg/(m2). Extended Vitals not filed for this encounter. Last 2 Encounter Wt Readings: Date: Wt: 12/29/2017 214 lb (97.1 kg) 12/09/2017 237 lb 6.4 oz (107.7 kg) Physical Exam Constitutional: She is oriented to person, place, and time and well-developed, well-nourished, and in no distress. She appears not dehydrated. She appears healthy. She does not have a sickly appearance. No distress. HENT: Head: Normocephalic. Mouth/Throat: No oropharyngeal exudate. Neck: Normal range of motion. No hepatojugular reflux and no JVD present. Carotid bruit is not present. No edema and no erythema present. Cardiovascular: Normal rate, regular rhythm, S1 normal, S2 normal, normal heart sounds and intact distal pulses. PMI is not displaced. Exam reveals no gallop, no S3, no S4, no distant heart sounds, no friction rub and no decreased pulses. No murmur heard. Pulmonary/Chest: Effort normal. No respiratory distress. She has decreased breath sounds in the left lower field. She has no wheezes. She has no rhonchi. She has no rales. She exhibits no tenderness. Sternal stability is normal. Abdominal: Soft. Bowel sounds are normal. She exhibits no distension and no mass. There is no tenderness. There is no rebound and no guarding. Musculoskeletal: Normal range of motion. She exhibits no edema or tenderness. Neurological: She is alert and oriented to person, place, and time. Gait normal. Skin: Skin is warm and dry. No bruising, no lesion, no petechiae and no rash noted. She is not diaphoretic. No cyanosis or erythema. No pallor. Sternal incision is healing, well approximated. No drainage, redness or foul odor. Same presentation appears on the chest tube wounds. Psychiatric: Mood and affect normal. Nursing note and vitals reviewed. Assessment and Plan: ASSESSMENT/PLAN: 1. S/P AVR - ICD9: V43.3, ICD10: Z95.2 (primary diagnosis) -c/w current regimens: BB 12.5 bid, lisinopril 10 daily, asa 81 daily, Lipitor 10 daily - Refilled 7 days of OXYCODONE-ACETAMINOPHEN 5 MG-325 MG TABLET (1 tab daily PRN) -Lasix [address] Allen -ok to drive and start cardiac rehab at the nearest location 2. A fib with RVR -currently NSR with HR 60s -c/w coumadin and Cardizem [address] Allen 3. Pleural effusion - ICD9: 511.9, ICD10: J90 -reviewed CXR with Dr. Lester, will repeat CXR in 1 month - C/w daily lasix per Dr. Allen. In summary, Patient is doing well overall after the AVR sugery, with mild SOB slowly improving. Patient is released to drive, work. Patient should start cardiac rehab from this point on. she should follow up with her chronometer tester and PCP as scheduled, and only needs to be seen here on a as needed basis. I also recommend patient to have a repeat CXR in one month following on her pleural effusion. Electronically signed by Sophie Roberson APRN.CNP on December 29, 2017, 11:25 AM [place] Observed: 12/29/2017 Status: COMPLETED Source: [place] 11:00 AM [facility] OTHER [place] REPOSITORY Office Visit (AGVASACC) GRACIELA BRITO ([id number]) 1950 F Date Time Provider Department 12/29/17 11:00 AM SOPHIE ROBERSON (CARMEL) MONSE During your visit today, we recorded the following information about you: Pulse Respiration Blood pressure Weight 65/minute 12/minute 132/64 97.1 kg Height 1.448 m Sophie Roberson APRN.CNP, APRN.CNP 12/29/2017 12:49 PM Signed HPI: Graciela Brito is a 67 year old female that returns to the office today for 1 month post-discharge follow up for s/p Aortic valve replacement with #21 [facility] Trifecta bioprosthetic valve performed on 11/28/2017 by . Her post-operative course was complicated by post-op atrial fibrillation which recurred on 12/03- was sent home on Warfarin; anticipated pulmonary insufficiency; and volume overload-managed by daily lasix and resumed on Hydrochlorothiazide. She was discharged home with [facility] on 12/04 in NSR. She was found to have paroxysmal A fib with RVR during her 1 week visit with Nahed and was managed by starting Diltiazem 120 mg BID with BB reduced to 50 BID. Patient had bradycardia later, then medications were adjusted to daily Cardizem 120 mg. She has been following Dr. Allen closely for her cardiac medical management. Today, patient is visited with her and her daughter. She denied any new episodes of dizziness or syncope, no chest pain, palpitations, BP has been well control per patient. Tolerating diet well without changing bowel habits. No fever, chills. Has been engaging in more activities at home with some MATOS. Per patient recalled, her SOB has improved overtime. Patient seems to be pleased with her overall recovery. Patient's tolerating post surgical pain with pain medications: she takes percocet about one tab at nighttime, and only tylenol during the day. She rates her sternotomy pain an average of 5/10. More movement induced pain on her right chest. Subjective: Current Outpatient Prescriptions: metoprolol tartrate, short acting, (LOPRESSOR) 25 mg tablet Take 12.5 mg by mouth twice daily. oxyCODONE-acetaminophen (PERCOCET) 5-325 mg tablet Take 1 tablet by mouth every 4 hours as needed. warfarin (COUMADIN) 5 mg tablet diltiazem (CARDIZEM) 120 mg tablet Take 1 tablet by mouth twice daily. furosemide (LASIX) 20 mg tablet Take 1 tablet by mouth once daily for 30 doses. acetaminophen (TYLENOL) 325 mg tablet Take 2 tablets by mouth every 6 hours as needed. atorvastatin (LIPITOR) 10 mg tablet Take 1 tablet by mouth daily at bedtime. aspirin, enteric coated (ASPIRIN, ENTERIC COATED) 81 mg EC tablet Take 2 tablets by mouth once daily. lisinopril (ZESTRIL, PRINIVIL) 10 mg tablet Take 1 tablet by mouth once daily. magnesium oxide (MAG-OX) 400 mg tablet Take 1 tablet by mouth twice daily. senna-docusate (SENNA-S) 8.6-50 mg per tablet Take 1 tablet by mouth twice daily. warfarin (COUMADIN) 2.5 mg tablet Take 1 tablet by mouth daily as directed. Take 5 mg today, then 2.5 mg daily. calcitriol (ROCALTROL) 0.25 mcg capsule Take 0.25 mcg by mouth 3 times a WEEK. clonazePAM (KLONOPIN) 1 mg tablet Take 1 mg by mouth daily at bedtime. levothyroxine (SYNTHROID) 50 mcg tablet Take 50 mcg by mouth once daily. hydroxychloroquine (PLAQUENIL) 200 mg tablet Take 400 mg by mouth once daily. hydroCHLOROthiazide (HYDRODIURIL, ESIDRIX) 25 mg tablet Take 25 mg by mouth once daily. sertraline hcl(ZOLOFT 50 MG TAB) Take one(1) tablet daily. folic acid 1 mg tablet Take 1 mg by mouth once daily. No current facility-administered medications for this visit. Cipro [Ciprofloxacin]; Contrast Dye; Humira [Adalimumab]; Lantus [Insulin Glargine]; Zithromax [Azithromycin] PAST MEDICAL HISTORY Diagnosis Date - Aortic valve disorders ? followed by PCP - Central apnea - Diabetes mellitus without mention of complication Diabetes mellitus/ RESOVED PER PATIENT - Dyspnea - History of Sjogren's disease - Hypothyroidism - Mixed hyperlipidemia Hyperlipidemia - Myalgia and myositis, unspecified - Nerve damage LEFT ARM - Obesity (BMI 30-39.9) - Rheumatoid arthritis(714.0) - Secondary pulmonary arterial hypertension (HCC) - Unspecified sleep apnea PAST SURGICAL HISTORY Procedure Laterality Date - CARDIAC CATH 10/26/2017 [facility] - DELIVERY ONLY 1970 , low cervical - PAST SURGICAL HISTORY OF 11/28/2017 AVR - REMOVAL GALLBLADDER 1971 Cholecystectomy - REMOVAL OF TONSILS,ANDlt;13 Y/O 1976 Tonsillectomy - REVISE MEDIAN N/CARPAL TUNNEL SURG Bilateral 90'S Carpal tunnel decomp - TOTAL ABDOM HYSTERECTOMY 1975 Hysterectomy, DIANDRA - TOTAL KNEE REPLACEMENT Right 2004 Knee replacement, total FAMILY HISTORY Problem Relation Age of Onset - positive [OTHER] Other Sister with MS - Cancer Mother - Coronary Artery Disease Father 63 from [place] - Cervical Cancer Sister - Coronary Artery Disease Brother 45 CABG - Cancer Brother Social History Substance Use Topics - Smoking status: Former Smoker Packs/day: 1.00 Years: 5.00 Types: Cigarettes Quit date: 11/16/1987 - Smokeless tobacco: Never Used Comment: quit 30 yrs ago - Alcohol use No Review of Systems Constitutional: Negative for chills, fever, malaise/fatigue and weight loss. HENT: Negative for sore throat. Respiratory: Positive for shortness of breath. Negative for cough, sputum production and wheezing. ANDquot;has improvedANDquot; Cardiovascular: Negative for chest pain, palpitations, orthopnea, claudication, leg swelling and PND. Gastrointestinal: Negative for abdominal pain, blood in stool, constipation, diarrhea, melena, nausea and vomiting. Genitourinary: Negative for dysuria. Musculoskeletal: Negative for falls and joint pain. Skin: No new lesions Neurological: Negative for dizziness, tingling, sensory change, focal weakness, weakness and headaches. Endo/Heme/Allergies: Does not bruise/bleed easily. Psychiatric/Behavioral: Negative for depression. Objective: One month post- op Chest X-ray is done and reviewed today. Reviewed with Dr. Lester. Physical Examination: Vitals:BP 132/64 Pulse 65 Resp 12 Ht 4' 9ANDquot; (1.45m) Wt 214 lb (97.1kg) SpO2 94% BMI 46.30 kg/(m2). Extended Vitals not filed for this encounter. Last 2 Encounter Wt Readings: Date: Wt: 12/29/2017 214 lb (97.1 kg) 12/09/2017 237 lb 6.4 oz (107.7 kg) Physical Exam Constitutional: She is oriented to person, place, and time and well-developed, well-nourished, and in no distress. She appears not dehydrated. She appears healthy. She does not have a sickly appearance. No distress. HENT: Head: Normocephalic. Mouth/Throat: No oropharyngeal exudate. Neck: Normal range of motion. No hepatojugular reflux and no JVD present. Carotid bruit is not present. No edema and no erythema present. Cardiovascular: Normal rate, regular rhythm, S1 normal, S2 normal, normal heart sounds and intact distal pulses. PMI is not displaced. Exam reveals no gallop, no S3, no S4, no distant heart sounds, no friction rub and no decreased pulses. No murmur heard. Pulmonary/Chest: Effort normal. No respiratory distress. She has decreased breath sounds in the left lower field. She has no wheezes. She has no rhonchi. She has no rales. She exhibits no tenderness. Sternal stability is normal. Abdominal: Soft. Bowel sounds are normal. She exhibits no distension and no mass. There is no tenderness. There is no rebound and no guarding. Musculoskeletal: Normal range of motion. She exhibits no edema or tenderness. Neurological: She is alert and oriented to person, place, and time. Gait normal. Skin: Skin is warm and dry. No bruising, no lesion, no petechiae and no rash noted. She is not diaphoretic. No cyanosis or erythema. No pallor. Sternal incision is healing, well approximated. No drainage, redness or foul odor. Same presentation appears on the chest tube wounds. Psychiatric: Mood and affect normal. Nursing note and vitals reviewed. Assessment and Plan: ASSESSMENT/PLAN: 1. S/P AVR - ICD9: V43.3, ICD10: Z95.2 (primary diagnosis) -c/w current regimens: BB 12.5 bid, lisinopril 10 daily, asa 81 daily, Lipitor 10 daily - Refilled 7 days of OXYCODONE-ACETAMINOPHEN 5 MG-325 MG TABLET (1 tab daily PRN) -Lasix [address] Allen -ok to drive and start cardiac rehab at the nearest location 2. A fib with RVR -currently NSR with HR 60s -c/w coumadin and Cardizem [address] Allen 3. Pleural effusion - ICD9: 511.9, ICD10: J90 -reviewed CXR with Dr. Lester, will repeat CXR in 1 month - C/w daily lasix per Dr. Allen. In summary, Patient is doing well overall after the AVR sugery, with mild SOB slowly improving. Patient is released to drive, work. Patient should start cardiac rehab from this point on. she should follow up with her chronometer tester and PCP as scheduled, and only needs to be seen here on a as needed basis. I also recommend patient to have a repeat CXR in one month following on her pleural effusion. Electronically signed by Sophie Roberson APRN.CNP on December 29, 2017, 11:25 AM Sophie Roberson APRN.YING SHELL 12/29/2017 11:42 AM Signed You have done a great job recovering from you surgery, however, there are still additional components to your remaining recovery: Driving: Ok to drive. Rehab: Please start cardiac rehab, contacts are listed below if they haven't contact you. Rehab Contacts: [phone] ([facility]) or [phone] ([facility]) Restrictions: Please allow time to heal, slowly increase weight bearing in a gradual fashion (5lbs increment each month) over the next 2-3 months, then can gradually resume your normal activity depend on how you feel. Follow-ups: It is crucial to establish future appointments with your other providers. Please follow up with your chronometer tester and your primary care doctor and your court clerk so that they can continue helping you with your medications and future health concerns. We would like to follow up with you in 2 weeks with CXR to reassess the fluid in your lung. Please don't hesitate to contact us if you have any concerns/questions: [phone] Sophie Roberson APRN.CNP Referring Provider: BIRD GARZA [[id number]] Allergies As of Date: 12/29/2017 Noted Allergy Reaction CIPRO (CIPROFLOXACIN) 11/26/2008 4 - Hives CONTRAST DYE 01/01/2009 4 - Hives HUMIRA (ADALIMUMAB) 11/16/2017 12 - Shortness of Breath LANTUS (INSULIN GLARGINE) 01/01/2009 7 - Swelling Comments: 11/2017: per patient, in 2009 experienced throat swelling with Lantus. Has previously used Levemir without problems. ZITHROMAX (AZITHROMYCIN) 01/01/2009 4 - Hives Date Reviewed: 12/29/2017 Reviewed by: Sophie Lei) YING Roberson - Fully Assessed Reason for Visit: Post-Op Visit [1236] Cmt: AVR 3-18 Primary Visit Diagnosis:S/P AVR [Z95.2] Other Visit Diagnosis:Pleural effusion [J90] Order(s):oxyCODONE-acetaminophen (PERCOCET) 5-325 mg tabletTake 1 tablet by mouth once daily as needed for Pain (moderate to severe pain) for up to 7 days.Disp: 7 tabletRfl: 0 XR CHEST 2V FRONTAL/LAT [[id number]] Order #: [id number] FUTURE Prescriptions as of 12/29/2017 Sig: METOPROLOL TARTRATE 25 MG TAB* Take 12.5 mg by mouth twice d* WARFARIN 5 MG TABLET DILTIAZEM 120 MG TABLET Take 1 tablet by mouth twice * FUROSEMIDE 20 MG TABLET Take 1 tablet by mouth once d* ACETAMINOPHEN 325 MG TABLET Take 2 tablets by mouth every* ATORVASTATIN 10 MG TABLET Take 1 tablet by mouth daily * ASPIRIN 81 MG TABLET,DELAYED * Take 2 tablets by mouth once * LISINOPRIL 10 MG TABLET Take 1 tablet by mouth once d* MAGNESIUM OXIDE 400 MG TABLET Take 1 tablet by mouth twice * SENNOSIDES 8.6 MG-DOCUSATE SO* Take 1 tablet by mouth twice * WARFARIN 2.5 MG TABLET Take 1 tablet by mouth daily * CALCITRIOL 0.25 MCG CAPSULE Take 0.25 mcg by mouth 3 time* CLONAZEPAM 1 MG TABLET Take 1 mg by mouth daily at b* LEVOTHYROXINE 50 MCG TABLET Take 50 mcg by mouth once walter* HYDROXYCHLOROQUINE 200 MG TAB* Take 400 mg by mouth once walter* HYDROCHLOROTHIAZIDE 25 MG TAB* Take 25 mg by mouth once nelia* * ZOLOFT 50 MG TABLET Take one(1) tablet daily. OXYCODONE-ACETAMINOPHEN 5 MG-* Take 1 tablet by mouth once d* FOLIC ACID 1 MG TABLET Take 1 mg by mouth once daily. Medication notes this encounter METOPROLOL TARTRATE 50 MG TABLET >> Cassius Reyes PACKER DRIED BEEF 12/29/2017 10:57 AM >> CASSIUS REYES LPN [facility] Dec 29, 2017 10:57 AM Not taking FOLIC ACID 1 MG TABLET >> Cassius Reyes LPN 12/29/2017 10:58 AM >> CASSIUS REYES LPN [facility] Dec 29, 2017 10:58 AM Not taking Problem List As Of Date 12/29/2017 Noted Resolved Aortic valve stenosis [I35.0] INVALID FOR* More... Obesity, Class III, BMI >= 40 E66.01 [E66.01] INVALID FOR* S/P AVR (aortic valve replacement) and aortopla*INVALID FOR* Other instructions from your clinician: You have done a great job recovering from you surgery, however, there are still additional components to your remaining recovery: Driving: Ok to drive. Rehab: Please start cardiac rehab, contacts are listed below if they haven't contact you. Rehab Contacts: [phone] ([facility]) or [phone] ([facility]) Restrictions: Please allow time to heal, slowly increase weight bearing in a gradual fashion (5lbs increment each month) over the next 2-3 months, then can gradually resume your normal activity depend on how you feel. Follow-ups: It is crucial to establish future appointments with your other providers. Please follow up with your chronometer tester and your primary care doctor and your court clerk so that they can continue helping you with your medications and future health concerns. We would like to follow up with you in 2 weeks with CXR to reassess the fluid in your lung. Please don't hesitate to contact us if you have any concerns/questions: [phone] Sophie Roberson APRN.CARMEL Prescriptions ordered this encounter Disp Refills Start End OXYCODONE-ACETAMINOPHEN 5 MG-325 MG * 7 ta* 0 12/29/2017 01/05/2018 Class: Print RX Route: ORAL Sig: Take 1 tablet by mouth once daily as needed for Pain (moderate to severe pain) for up to 7 days. Medications Discontinued During This Encounter metoprolol tartrate, short acting, (* 12/09/2017 12/29/2017 Class: Med Update Route: ORAL Sig: Take 1 tablet by mouth twice daily. Disc: Erroneous entry oxyCODONE-acetaminophen (PERCOCET) 5* 12/04/2017 12/29/2017 Class: Historical Med Route: ORAL Sig: Take 1 tablet by mouth every 4 hours as needed. Disc: Course of therapy completed Disposition: Return in about 2 weeks (around 01/12/2018) for 1 month post op visit with chest x-ray, chest x-ray on day of visit (prior to visit). Follow-up and Disposition History Recorded Encounter Status:Closed by SOPHIE ROBERSON CNP on 12/29/17 CHEST 2 VIEWS Observed: 12/29/2017 Status: F Source: [facility] 10:33 AM HEALTH SYSTEM REPOSITORY Performed at [facility] APPROVED BY: Ruddy Garrett MD EXAMINATION: CHEST RADIOGRAPH (2 VIEW FRONTAL & LATERAL) Clinical History: Shortness of breath, status post CABG and valve replacement MQ: XC2_5 Comparison: Prior studies with the most recent dated 12/03/2017 RESULT: Lines, tubes, and devices: None. Lungs and pleura: Small right pleural effusion with adjacent atelectasis or pneumonia. The effusion is larger than on the prior exam and there has been interval resolution of the previously noted left effusion. Left lung is clear. Cardiomediastinal silhouette: Normal cardiomediastinal silhouette. Other: Intact sternotomy wires. Prosthetic valve noted. No acute bony abnormality. IMPRESSION: Small right pleural effusion with adjacent atelectasis or pneumonia. 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 Taz Allen Primary Diagnosis: AVR 11/28/2017 - History of Present Cardiac Event Onset Date: Enter Onset Date of cardiac illnesses in Comment field below Valve Replacement/Repair:: Yes - Aortic Valve Replacement and small aortic root enlargement Pacemaker/ICD: Yes Type of Symptoms:: Heart murmur for ever, went to PCP and then to chronometer tester and over the past 3-4 years have gone downhill Interventions with present event:: heart cath, stress echo Were there any complications?: Post operative atrial fibrillation - Medications Home Medications: Ambulatory Orders Medication Instructions Recorded Aspirin E.C. [Ecotrin] 162 mg PO DAILY@0800 09/21/16 - Allergies Allergies/Adverse Reactions: Allergies amiodarone Allergy (Unknown, Verified 12/23/17 14:33) Unknown ciprofloxacin [From Cipro] Allergy (Verified 12/23/17 14:33) Unknown ciprofloxacin HCl [From Cipro] Allergy (Verified 12/23/17 14:33) Unknown insulin glargine, human recombin. a [From Lantus] Allergy (Verified 12/23/17 14:33) Unknown iodine Allergy (Verified 12/23/17 14:33) Hives prednisone Adverse Reaction (Severe, Verified 12/23/17 14:33) Visual changes, glaucoma benjamin Adverse Reaction (Severe, Uncoded 12/23/17 14:33) Neck pain AND tingling - Sleep Disorder Evaluation Hx of Sleep Apnea: Yes Do you snore loudly (louder than talking or can be heard through closed doors)?: Yes - Central Sleep apnea and obstructive sleep apnea; BiPap device Do you often feel tired/ fatigued/ sleepy during daytime?: Yes Has anyone observed you stop breathing during sleep?: Yes History of Hypertension (for STOP score): Yes STOP Results: Positive Advanced Directives - Advanced Directives Power of Community Reinvestment Act Officer: No Living Will: No Advance Directives on File: No DNR Order?:: No Past Medical History - Problems and Co-Morbidities Problems AND Co-Morbidities: Dyslipidemia, Diabetes - Diet controlled diabetes, Obesity, Hypertension, Depression - diagnosed, Anxiety - diagnosed, - - Past Medical Illness Past Medical Illness: Diabetes - Type II DM diet controlled Other Medical Illnesses:: Central Apnea, obstructive sleep apnea, Palpitations, history of Sjogren's disease, rheumatoid arthritis, hypothyroidism, secondary pulmonary arterial hypertension. - Past Cardiac Illness Past Cardiac Illness: Valve Disorders - severe aortic valve stenosis, Arrhythmias - palpitations, status post operative atrial fibrillation, Heart Murmur, Other - non-rheumatic aortic stenosis. - Past Surgical History Surgical History: - - S/P AVR, bilateral carpal tunnel syndrome, partial hysterectomy, right knee joint replacement, tonsillectomy, cholecystectomy. - Family History Summary Family History: Heart Disease: Sibling, Paternal, Cancer: Maternal, Sibling, Hypertension: Maternal Additional Family History: F/H CAD, CABG, hypertension, cancer. Review of Systems - Review of Systems Hints: Right click = Denies (Slash). Left click = Reports ([place]) Review of Present Symptoms: Reports: Shortness of Breath at Rest, Shortness of Breath with Exertion, Operative Discomfort, Wound Healing, Fatigue, Heart Arrhythmia/Irregularities - post operative atrial fibrillatiopn, Appetite - Normal - wasnt for a long time, but regaining appetite, Sleep - Normal. Denies: Dizziness/Lightheadedness, Appetite - Special Diet Risk Factor Assessment - Chief Complaint Chief Complaint: Patient presents to cardiac rehab today follwoing recent AVR by Dr. Lester at [facility] after refferal by Dr. Allen. - Pulse Pulse Rate: 58 - SpO2 96% Pulse Rhythm: Regular - Hypertension Blood Pressure Sitting - Left Arm: 120/48 - Stress Stress: Recent - surgery - Diabetes Diabetic History: Type II - Diet controlled Nutrition Referral for Diabetes: Yes - Obesity Height: 4 ft 9 in Weight:: 212 lb Weight in Pounds: 212.0 lbs Body Mass Index (BMI): 45.8 Nutritional Referral for Obesity: Yes - Physical Inactivity Physical Inactivity: None - Risk Stratification Risk Guidelines: Lowest Risk: Risk Factor for Smoking, Risk Factor for Dyslipidemia, Risk Factor for Diabetes - hBA1c% <5.9 last year, Risk Factor for Hypertension, Risk Factor for Depression, Moderate Risk: Risk Factor for Sedentary Lifestyle, Highest Risk: Risk Factor for Obesity - For Smoking Smoking Risk Guidelines: Smoking Low Risk: None or quit greater than 6 months ago. Smoking Moderate Risk: Smoker or quit 6 months or less ago. Smoking High Risk: Smoker - For Dyslipidemia Dyslipidemia Risk Guidelines: Low Risk: Moderate Risk: High Risk: 15-25% fat 25.1-29% fat >/= 30% fat. <7% sat fat 7-9% sat fat >9% sat fat. <150 mg chol 150-299 mg chol >/= 300 mg chol. LDL <100 LDL 100-129 LDL >/= 130. Chol/HDL ratio <5.0 Chol/HDL ratio 5.0-6.0 Chol/HDL ratio >6.0. Triglycerides <100 Triglycerides 100-149 Triglycerides >/= 150 - For Diabetes Mellitus Diabetes Risk Guidelines: Diabetes Low Risk: HgA1c <6.5% and/or FBG <120. Diabetes Moderate Risk: HgA1c 6.6-7.9% and/or FBG 120- 180. Diabetes High Risk: HgA1c >/= 8% and/or FBG >180 - For Obesity/Overweight Obesity/Overweight Risk Guidelines: Obesity Low Risk: BMI <25.0. Obesity Moderate Risk: BMI 25-29.9. Obesity High Risk: BMI >/= 30.0 - For Hypertension Hypertension Risk Guidelines: Hypertension Low Risk: Systolic <120 and Diastolic <80. Hypertension Moderate Risk: Systolic 120-139 and Diastolic 80-89. Hypertension High Risk: Systolic >/= 140 and Diastolic >/= 90 - For Sedentary Lifestyle Sedentary Lifestyle Risk Guidelines: Sedentary Lifestyle Low Risk: >/= 1,500 kcal/week. Sedentary Lifestyle Moderate Risk: 700-1,499 kcal/week. Sedentary Lifestyle High Risk: < 700 kcal/week - For Depression Depression Risk Guidelines: Depression Low Risk: Not clinically depressed. Depression Moderate Risk: Mildly depressed. Depression High Risk: Clinically depressed - Family History Family History: Family History (Last Updated 12/13/17 @ 10:50 by Juan Carlos Wolff) Brother CAD (coronary artery disease) Father CAD (coronary artery disease) Mother Hypertension Cancer Sister Cancer Social History - Smoking History Smoking Status: Former smoker Hx Tobacco Use: No Hx Smoking Exposure: No - Alcohol Use Alcohol Usage: Yes - special occasions/holidays (wine) - Substance Abuse Hx Substance Use: No - Occupation Occupation (List type of work in comments):: Retired - Hobbies, Recreation, Social Activities Hobbies: Other - crafts, make greeting cards Recreational Activities: I am able to engage in a few activities Marital Status - Status Marital Status: - 47 years - Current Living Arrangements Living Environment:: Spouse - Children How many children do you have?: 1 Do any of your children live nearby?: Yes - Safety Do you feel safe in your surroundings?: Yes - Assistance Do you need any assistance at home?: home care nurse that is coming in right now 12/28/17 1324 <Electronically signed by Chirag Santana CRT, RCP, BS> Date Chirag Santana CRT, RCP, BS Outcome assessment reviewed. Exercise plan approved as documented. Treatment plan and goals support patient needs/abilities. Continue with current plan. I certify the patient demonstrates improvement and remains willing and capable of participation. the patient continues to benefit from cardiac rehab services/training. The patient may continue at current intensity, endurance and modality and progress per protocol. 12/28/17 1512 <Electronically signed by Taz Allen MD> [facility] Signature: Date Taz Allen MD CC: Signed 12 LEAD ELECTROCARDIOGRAM Observed: 12/27/2017 Status: F Source: [place] 8:26 AM [facility] REPOSITORY [facility] Cardiovascular Services [address] [place] [address] 12 Lead EKG 12/23/17 1441 MR#: [id number] Acct: [id number] Name: GRACIELA BRITO Rep #: [id number] : 1950 67 From: Angel Villalobos MD Attending Dr: Status: DEP ER Ordering Dr: Anoop Nath MD Date: 12/23/17 Location: ED Sex: F C Admitted: Test Reason : SOB Blood Pressure : / mmHG Vent. Rate : 052 BPM Atrial Rate : 052 BPM P-R Int : 214 ms QRS Dur : 094 ms QT Int : 492 ms P-R-T Axes : 028 015 089 degrees QTc Int : 457 ms Sinus bradycardia with 1st degree A-V block Septal infarct , age undetermined Abnormal ECG Confirmed by ANGEL VILLALOBOS MD ([id number]), newspaper copy editor DIANE NAVARRETE ([id number]) on 12/27/2017 8:26:30 AM Referred By: Taz Allen Confirmed By:ANGEL VILLALOBOS MD 12/27/17 0826 Date Angel Villalobos MD CC: Bird Garza MD; Anoop Nath MD Signed EMERGENCY DEPARTMENT Observed: 12/23/2017 Status: F Source: [place] SUMMARY 4:30 PM [facility] REPOSITORY [facility] Medical Records Department [address] [place] [address] Emergency Department Summary 12/23/17 1550 MR#: [id number] Acct: [id number] Name: GRACIELA BRITO Rep #: [id number] : 1950 67 From: Anoop Nath MD PCP: Bird Garza MD Status: REG ER - ER Visit Summary Date of Service: 12/23/17 Chief Complaint: Dizziness History of Present Illness: The patient is a 67 F who presents with dizziness. When asked to defined dizziness patient states like I am going to pass out . She states when she stands up she feels dizzy. She denies any double vision, blurred vision or loss of vision. She denies any spinning of herself or the room. She denies any difficulty breathing, shortness of breath or pleuritic chest pain. She reports nausea when she feels lightheaded. When asked if she appears pale she states she has been told she does. She denies black or maroon stool. She is on Coumadin. She is status post aortic valve replacement, bovine. She denies any leg pain, swelling or discoloration. She denies fever, chills or night sweats. She denies weight gain or weight loss. She denies any auditory symptoms. She complains of of chest discomfor over the medial sternal incision site. She denies shortness of breath. She presently denies nausea. She denies any abdominal pain. She denies any food intolerance. She denies any back pain. She denies dysuria, frequency, urgency or hematuria. She denies bruising easily or problems with bleeding. Please read written note for complete detail Physical Examination: Blood pressure is 161/70, temperature 97.6, heart rate 40, respiratory rate 16 and pulse ox on room air 97%, which is normal. She is well-nourished well-developed and obese with a BMI of 47.5. Head is atraumatic normocephalic. Pupils are equal round reactive. Extraocular muscles are intact. TMs are pearly white with landmarks noted. Nares patent with no drainage. Posterior pharynx without erythema or exudate. Uvula is midline. There is no dysphonia or dysphasia. Trachea is midline. There is no stridor with auscultation of the neck. There is no nystagmus. Heart is regular without murmur, gallop or rub. Lungs are clear to auscultation with good movement of air bilaterally. Abdomen is soft nontender. Bowel sounds are present normal. Negative Louis sign. Scar noted for hysterectomy. There is no asymmetry, swelling, discoloration, leg vein distention, palpable cords or tenderness along the distribution of the deep venous system. Neuro exam is nonfocal. She does appear pale. Test Results: EKG was obtained per nurse protocol and reveals a sinus rhythm rate of 52 with first-degree AV block and decreased anterior force. Parminder-Hallpike maneuver was performed and she did not have any symptoms until she honorio from supine to upright position. CBC is marked for an H AND H 11.0 and 35.8. H AND H on November 18, 2017 was 11.6 and 37.4. Electronic panel is remarkable for a glucose of 133. BUN and creatinine are 26 and 1.63 with a GFR of 34. BUN and creatinine on November 18, 2017 was 21 and 1.16. INR is subtherapeutic at 1.4. Emergency Department Course and Treatment: Since patient has orthostatic symptoms orthostatic vital signs were obtained. Since she is on Coumadin and a PT/INR was obtained. Since she does appear pale and friends have commented she appears pale the CBC was obtained and a BMP was obtained to evaluate the BUN to creatinine ratio. Treatment Plan: Patient was instructed to hold her p.m. dose of metoprolol. She is presently taking half of a 25 mg tablet twice daily because of low heart rate. Since she had documented heart rate between 4555 and does not compensate when she stands or with activity recommend decreasing the dose. She also was informed that her INR is subtherapeutic. She is presently taking 5 mg on Tuesday and and 2.5 mg on Tuesday, , Tuesday, Tuesday and Tuesday. Disposition: Discharged to home Impression: 1. Orthostatic symptoms secondary to autonomic dysfunction 2. Sinus bradycardia documented on monitor EKG 3. Subtherapeutic INR 4. Acute renal insufficiency 5. Chronic anemia 6. Hyperglycemia type II diabetic This note was generated with [employer] dictation software. It may contain incorrect words, spelling, and punctuation that were not noted in review of the chart prior to signing ED Disposition - Plan for ED Patient: Disposition: Home or Assisted Living Chief Complaint: Shortness of Breath Instructions: ED Bradycardia Referrals: Bird Garza MD [Primary Care Provider] - Taz Allen MD [STAFF PHYSICIAN] - 5-7 Days Additional Instructions: Take a 2.5 mg dose of Coumadin this evening. Take 2.5 mg of Coumadin on odd days and 5 mg tablet on even days. You will need your INR reassessed in 5-[address] Allen. Because your heart rate is slow recommend only taking half of a 25 mg metoprolol tablet in the morning only. What to do if you have Problems For any increased pain, shortness of breath, bleeding, nausea or vomiting, chest pain, or any unexpected problems, contact your Primary Care Provider. Call [facility] ([phone]) or report to the closest Emergency Room. Call 911 if necessary. 12/23/17 1630 <Electronically signed by Anoop Nath MD> Date Anoop Nath MD Cosigner Signature (If Indicated): Date CC: Taz Allen MD; Bird Garza MD BASIC METABOLIC Collected: 12/23/2017 Status: F Source: [place] PROFILE ([facility]) 2:50 PM [facility] REPOSITORY TYPE CODE TESTS RESULT OUT OF RANGE REFERENCE UNITS LAB L501.0100 74-106 mg/dL High GLU 133 Result Comment: Fasting Glucose result greater than or equal to 126 mg/dL suggests DIABETES MELLITUS per A.D.A. criteria. Please note revised GLUCOSE reference range effective 2017. LAB L501.1000 7-18 mg/dL High BUN 26 LAB L501.1100 0.55-1.02 mg/dL High CREAT,SERUM 1.63 Result Comment: The validity of the calculated GFR AND GFRAA in patients over 70 years has not been determined. Clinical correlation is essential. LAB L501.1110 >60 mL/min Low EST GFR 34 Result Comment: Non- GFR Calc LAB L501.1115 >60 mL/min Low EST GFR - AA 41 Result Comment: GFR Calc LAB L501.1255 ml/min Normal Estimated CRCL 53.33 LAB L501.1300 10-20 RATIO Normal BUN/CRE 16.0 LAB L501.2200 8.5-10 mg/dL Normal .1 CA 8.9 LAB L501.5300 136-14 mmol/L Normal 5 NA 142 LAB L501.5600 3.5-5. mmol/L Normal 1 K 3.9 LAB L501.5900 98-107 mmol/L Normal CL 103 LAB L501.6100 21.0-3 mmol/L Normal 2.0 CO2 28.0 LAB L501.6200 5-15 Normal GAP 11 Performed By: #### L500.2500 #### [facility] [address] [place], [address] CBC W/DIFF, AUTOMATED Collected: 12/23/2017 Status: F Source: [place] 2:50 PM [facility] REPOSITORY TYPE CODE TESTS RESULT OUT OF RANGE REFERENCE UNITS LAB L100.1000 4.4-11.0 K/mm3 Normal WBC 10.0 LAB L100.1200 4.2-5.4 M/mm3 Low RBC 3.65 LAB L100.1300 12.0-15.0 g/dl Low HGB 11.0 LAB L100.1400 37-47 % Low HCT 35.8 LAB L100.1500 81-99 fL Normal MCV 98.1 LAB L100.1600 27.0-32.0 pg Normal MCH 30.1 LAB L100.1700 32-36 g/gl Low MCHC 30.7 LAB L100.1810 11.6-14.6 % Normal RDW CV 14.0 LAB L100.1820 35.1-43.9 fl High RDW SD 48.3 LAB L100.1900 150-450 K/mm3 Normal PLT 285 LAB L100.2000 6.2-12.0 fl Normal MPV 9.8 LAB L100.2100 47-70 % Normal NEUT% 65.1 LAB L100.2200 19-41 % Normal LY% 24.1 LAB L100.2300 0-10 % Normal MONO% 8.3 LAB L100.2400 0-5 % Normal EO% 1.6 LAB L100.2500 0-1 % Normal BASO% 0.7 LAB L100.2550 0.0-0.9 % Normal IM GRAN % 0.200 Result Comment: IG% - Immature Granulocytes (promyelocytes, myelocytes and metamyelocytes) > 1% indicates that a LEFT SHIFT is Present. LAB L100.2620 2.0-7.7 X10 3/uL Normal Absolute Neut 6.5 LAB L100.2720 0.83-4.51 X10 3/ul Normal Absolute Lymph 2.41 Performed By: #### L100.0100 #### [facility] [address] [place], [address] PROTHROMBIN TIME W/INR Collected: 12/23/2017 Status: F Source: [place] 2:50 PM [facility] REPOSITORY TYPE CODE TESTS RESULT OUT OF RANGE REFERENCE UNITS LAB L300.4150 11.7-14.9 SECONDS High PROTIME 16.9 LAB L300.4200 Normal INR 1.4 Performed By: #### L300.3900 #### [facility] [address] [place], [address] PROTHROMBIN TIME W/INR Collected: 12/19/2017 Status: F Source: [place] 11:38 AM [facility] REPOSITORY TYPE CODE TESTS RESULT OUT OF RANGE REFERENCE UNITS LAB L300.4150 11.7-14.9 SECONDS High PROTIME 16.3 LAB L300.4200 Normal INR 1.3 Performed By: #### L300.3900 #### [facility] [address] [place], [address] CARDIOLOGY VISIT Observed: 12/13/2017 Status: F Source: [place] REPORT 3:42 PM [facility] REPOSITORY [facility] [place] [address] OFFICE VISIT Date of Service: 12/13/17 MR#: [id number] Acct: [id number] Name: GRACIELA BRITO Rep #: [id number] : 1950 Provider: VEGA Macdonald Age/Sex: 67/F Location: [facility] Status: Signed HPI HPI Details: GRACIELA BRITO, is a 67 F who presents to the office today for a cardiovascular outpatient follow-up. She has a history of severe aortic stenosis status post AVR with a 21 mm [place] trifecta in November [address] Lester, small aortic root status post aortic root enlargement with autologous pericardium in November 2017, postoperative atrial fibrillation, hyperlipidemia, and sleep apnea with BiPaP therapy. Patient is status post recent AVR. Postoperative echo showed an ejection fraction of 60-65%, well-seated aortic valve with peak/mean gradient of 17/10. Patient is here for follow-up. Pt. denies chest, arm, jaw, or neck discomfort. Her exercise tolerance is stable though minimal. Pt. denies symptoms of palpitations, lightheadedness, dizziness, near syncope, or syncopal episodes. Pt. denies edema or claudication issues. Pt. denies orthopnea, PND, fever, chills, blood in urine, blood in stool, or myalgia. Pt. states feeling SOB all the time. She states an increase in bilateral hand swelling. Intake Vital Signs12/13/17 Height 4 ft 9 in 12/13/17 Weight: 233 lb 12/13/17 Body Mass Index (BMI) 50.4 Intake Visit Reasons: s/p valve replacement - Samantha has records Advertising Sales Agent Required: No Accompanied by: Is patient in pain?: Yes (chest discomfort) Pain scale (1- 10): 3 Allergies amiodarone Allergy (Unknown, Verified 12/13/17 11:00) Unknown ciprofloxacin [From Cipro] Allergy (Verified 12/13/17 11:00) Unknown ciprofloxacin HCl [From Cipro] Allergy (Verified 12/13/17 11:00) Unknown insulin glargine, human recombin. a [From Lantus] Allergy (Verified 12/13/17 11:00) Unknown iodine Allergy (Verified 12/13/17 11:00) Hives prednisone Adverse Reaction (Severe, Verified 12/13/17 11:00) Visual changes, glaucoma benjamin Adverse Reaction (Severe, Uncoded 12/12/17 09:21) Neck pain AND tingling Medications Aspirin E.C. [Ecotrin] 81 mg PO DAILY@0800 09/21/16 [History Confirmed 12/12/17] Folic Acid 1 mg PO DAILY 09/21/16 [History Confirmed 12/12/17] Hydroxychloroquine [Plaquenil] 400 mg PO DAILY 09/21/16 [History Confirmed 12/13/17] Levothyroxine Sodium 50 mcg PO DAILY 09/21/16 [History Confirmed 12/12/17] Clonazepam [Klonopin] 1 mg PO QHS 07/18/17 [History Confirmed 12/12/17] Docusate Sodium [Colace] 100 mg PO DAILY #20 cap 07/18/17 [Rx Confirmed 12/13/17] Methotrexate [Methotrexate] 20 mg PO WE 07/18/17 [History Confirmed 10/25/17] Sertraline HCl [Zoloft] 50 mg PO DAILY 07/18/17 [History Confirmed 12/12/17] hydrochlorothiazide 25 mg tablet 25 mg PO DAILY #90 tab 09/20/17 [Rx Confirmed 12/12/17] atorvastatin 10 mg tablet 10 mg PO QHS tab 12/12/17 [History Confirmed 12/13/17] calcitriol 0.25 mcg capsule 0.25 mcg PO QDAY PRN 12/12/17 [History Confirmed 12/12/17] diltiazem 120 mg tablet 120 mg PO .QD tab 12/12/17 [History Confirmed 12/13/17] lisinopril 10 mg tablet 10 mg PO QDAY 12/12/17 [History Confirmed 12/13/17] sertraline 25 mg tablet 25 mg PO QDAY 12/12/17 [History Confirmed 12/12/17] warfarin 2.5 mg tablet 2.5 mg PO QDAY 12/12/17 [History Confirmed 12/13/17] furosemide 20 mg tablet 20 mg PO QDAY 12/13/17 [History Confirmed 12/13/17] magnesium oxide 400 mg tablet 400 mg PO BID tab 12/13/17 [History Confirmed 12/13/17] metoprolol tartrate 50 mg tablet 25 mg PO BID tab 12/13/17 [History Confirmed 12/13/17] oxycodone-acetaminophen 5 mg-325 mg tablet 1 tab PO Q6H PRN tab 12/13/17 [History Confirmed 12/13/17] Ejection fraction %: 65 to 70 PFSH Medical History Obstructive sleep apnea (Chronic) Palpitations (Chronic) Hyperlipidemia (Chronic) History of Sjogren's disease (Chronic) Rheumatoid arthritis (Chronic) Type 2 diabetes mellitus without complications (Chronic) Hypothyroidism (Chronic) CHCF (current)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 (Acute) Postoperative atrial fibrillation (Acute) Secondary pulmonary arterial hypertension (Chronic) Dyspnea (Chronic) Obesity (BMI 30.0-34.9) (Chronic) Central apnea (Chronic) Non-rheumatic aortic stenosis (Chronic) Surgical History History of right and left heart catheterization (Chronic 09/22/16) S/P AVR (aortic valve replacement) (Acute 11/28/17) Bilateral carpal tunnel syndrome (Chronic) History of partial hysterectomy (Chronic) History of right knee joint replacement (Chronic) History of tonsillectomy (Chronic) Hx of cholecystectomy (Chronic) Family History Brother CAD (coronary artery disease) CABG age 45 Father CAD (coronary artery disease) from [place] age 63 Mother Hypertension Cancer Sister Cancer Social History Smoking Status: Former smoker alcohol intake: current alcohol intake frequency: holidays/special occasions only Alcohol type: wine substance use type: does not use caffeine: Yes Type: coffee what type of physical activity do you participate in: none seatbelt use: always do you feel safe at home: Yes ROS Const Const: Positive for fatigue; negative for weakness, body ache, fever(s) or chills ENT ENT: Negative for dizziness Cardio Chest Pain: No Palpitations: No Edema: None Muscle aches with walking: None Resp Respiratory: Positive for SOB with activity and SOB at rest; negative for SOB orthopnea\SOB lying down or paroxysmal nocturnal dyspnea GI GI: Negative nausea, black,tarry stools, bright, red blood in stools or vomiting blood/hematemesis : Negative for hematuria or frequent nighttime urination/ nocturia Musc Musc: Negative for muscle aches/ myalgia Neuro Neuro: Negative for weakness, dizziness, lightheadedness, near syncope, syncope or orthostatic symptoms Endo Endo: Positive for fatigue Cardiology Exam Const Appearance: cooperative, healthy appearing, comfortable and no acute distress Orientation: alert, awake and oriented x3 Head Head: normal to inspection Mouth: oral mucosae normal Neck Neck: no JVD and normal visual inspection Carotids: normal carotid upstroke Chest Chest inspection: normal inspection of the chest and normal respiratory effort Auscultation: Bilateral: Clear to Auscultation Cardio Rate: regular rate Rhythm: regular rhythm Heart sounds: S2 normal and murmur; negative rub or gallop Murmur: Grade 1/6 and RLSB GI GI: normal to inspection Neuro General: alert, awake, oriented x3 and CN's II-XI intact bilaterally Skin Skin: no rashes or lesions noted Extremities Pulses: Normal: Right Posterior Tibial Pulse, Left Posterior Tibial Pulse, Right Radial Pulse, Left Radial Pulse Lower Extremity Edema: None: Bilateral Psych Psychological: normal affect Supplemental Info Echocardiogram from September 2017 showed an estimated ejection fraction of 65%, stage II diastolic dysfunction, mildly dilated right ventricle, moderately enlarged left atrium, trivial tricuspid valve insufficiency, RVSP of 34 mmHg, moderate to severe aortic stenosis, peak aortic valve gradient of 58 mmHg, mean aortic valve gradient of 33 mmHg, aortic valve area of 0.84 cm , and compared to previous echocardiogram in February 2016 LV function has remained the same, aortic stenosis has worsened to moderate to severe, and RVSP has worsened from 21 to 34 mmHg. Heart catheterization from October 2017 showed an ejection fraction of 65-75%, left main is angiographically normal, LAD with mild luminal irregularities less than 30%, LCx with mild luminal irregularities less than 30%, and RCA with mild luminal irregularities less than 30%. Aortic valve was noted to have mild calcification, severe stenosis, and no insufficiency. Aortic root was angiographically normal. Assessment AND Plan 1. Dyspnea on exertion R06.09 Plan Patient's heart catheterization from October 2017 showed ejection fraction of 65-75%, angiographically normal left main and minimal luminal irregularities less than 30% in LAD, LCx, and RCA. Patient's postoperative echocardiogram showed ejection fraction of 60-65% with aortic valve well seated and peak/mean gradient of 17/10. Patient states that she has continual shortness of breath. A BTNP will be evaluated for any diastolic component. If this is positive patient's diuretics will be adjusted accordingly. If this is negative patient will be asked to continue to follow with cinder block mason. She has been monitored for rheumatoid lung disease and since stopping her methotrexate this may have made her more short of breath. She has upcoming appointment with cardiovascular surgeon and it will be decided that methotrexate can be resumed. We will wait for her laboratory work for further recommendation. Region of this note patient's B and P was elevated at 450. She will increase her Lasix to 20mg BID for 3 days and contact our office in 3 days with up date on symptoms. Patient is also on hydrochlorothiazide and depending on her response to Lasix this can be discontinued and continued with Lasix only. 2. Postoperative atrial fibrillation I97.89; I48.91 Plan Patient's EKG in office showed sinus bradycardia with a left bundle branch block at a rate of 50 bpm. The left bundle branch block is not new since discharge from hospital. It was noted on EKG at [facility] on November 28, 2017. Patient will continue current dose of Cardizem. Her metoprolol will be decreased to metoprolol 25 mg twice daily. We will reevaluate heart rate at her next office visit in approximately 2 weeks. She is instructed to contact our office at home if blood pressure or heart rate increase. Possibly decreasing her metoprolol tartrate may help with shortness of breath as well. Patient will continue with Coumadin therapy. 3. S/P AVR (aortic valve replacement) Z95.2 11/28/[address] [facility] Trifecta AVR (bioprosthetic) with pericordial patch for aortic root dilatation, per Dr. Lester @ [facility] Plan Patient's echocardiogram post valvular surgery showed ejection fraction of 60-65%, aortic valve well seated, and peak/mean gradient of 17/10. Patient denies any improvement in symptoms since valvular replacement surgery. At this time we will continue to monitor her bowel through history, exam, and repeat echocardiogram as needed. Orders Orders: 4. Pure hypercholesterolemia E78.00; E78.0 Plan Patient has not had her lipid or liver profile drawn in some time. A new order will be placed and patient will be reminded to have this drawn at her earliest convenience. Patient will continue current cholesterol-lowering medication. 5. Type 2 diabetes mellitus without complication, without long-term current use of insulin E11.9 Plan Patient continue to follow-up with primary care provider for this. Plan Detail Other Orders Orders: Additional Comments Thank you for allowing us to participate in the patients plan of care, if you have any questions please do not hesitate to call. This note was generated using a voice recognition system and there may be incorrect words, spelling or punctuation that were not noted when reviewing the office note prior to saving. Coding Level of Care Code Off vis,est,level 4 Diagnoses Dyspnea on exertion R06.09 Postoperative atrial fibrillation I97.89; I48.91 S/P AVR (aortic valve replacement) Z95.2 Pure hypercholesterolemia E78.00; E78.0 Hyperlipidemia type: pure hypercholesterolemia Type 2 diabetes mellitus without complication, without long- term current use of insulin E11.9 Diabetes mellitus long-term insulin use: without long-term use Coding Level of Care Code Off vis,est,level 4 Diagnoses Dyspnea on exertion R06.09 Postoperative atrial fibrillation I97.89; I48.91 S/P AVR (aortic valve replacement) Z95.2 Pure hypercholesterolemia E78.00; E78.0 Hyperlipidemia type: pure hypercholesterolemia Type 2 diabetes mellitus without complication, without long- term current use of insulin E11.9 Diabetes mellitus technician terminal and repeater insulin use: without technician terminal and repeater use 12/13/17 1542 <Electronically signed by Jose Enrique Macdonald ASSISTANT DIRECTOR OF NURSING-C> Date Jose Enrique JIN Cosigner Signature: Date (if applicable) CC: Taz Allen MD; Bird Garza MD BNP,B-TYPE NATRIURETIC Collected: 12/13/2017 Status: F Source: [place] 12:03 PM [facility] REPOS[facility] TYPE CODE TESTS RESULT OUT OF RANGE REFERENCE UNITS LAB L503.6620 0-100 pg/mL High B-TYPE 450.2 [place] PEP Performed By: #### L503.6620 #### [facility] [address] [place], [address] 12 LEAD EKG PERFORMED Observed: 12/13/2017 Status: F Source: [place] [facility] 10:55 AM [facility] REPOSITORY [facility] [address] [place] [address] 12 Lead EKG performed by [facility] 12/13/17 1054 MR#: [id number] Acct: [id number] Name: GRACIELA BRITO Rep #: [id number] : 1950 67 From: Jose Enrique Macdonald ASSISTANT DIRECTOR OF NURSING-C Attending Dr: Jose Enrique Macdonald NP Status: DEP AMB Ordering Dr: Jose Enrique Macdonald Date: 12/13/17 [place] [facility] Sex: F C Admitted: [facility]12 Lead EKG performed by [facility] ECG Report Interpretation Sinus Bradycardia Low voltage in precordial leads. -Incomplete left bundle branch block. -Decreasing R-wave progression -may be secondary to conduction defect consider old anterior infarct. - Nonspecific T-abnormality. ABNORMAL Electronically signed on 01/30/2018 at 09:29 by Taz Allen 01/30/18 0931 Date Jose Enrique Macdonald ASSISTANT DIRECTOR OF NURSING-C CC: Bird Garza MD Date Dictated: 12/13/171053 Date Transcribed: 12/13/171053 Interventional Pain Physician: BELIA Signed PROTHROMBIN TIME W/INR Collected: 12/12/2017 Status: F Source: [place] 11:55 AM [facility] REPOSITORY Order Comment: Comments: STANDING ORDER Comments: STANDING ORDER TYPE CODE TESTS RESULT OUT OF RANGE REFERENCE UNITS LAB L300.4150 11.7-14.9 SECONDS High PROTIME 23.0 LAB L300.4200 Normal INR 2.0 Performed By: #### L300.3900 #### [facility] [address] [place], [address] PROGRESS Observed: 12/10/2017 Status: COMPLETED Source: [place] 2:31 PM [facility] OTHER [place] REPOSITORY HNO ID: [id number] Author: Nahed Machado APRN.CNP Service: (none) Author Type: Nurse Practitioner Type: Progress Notes Filed: 12/10/2017 2:34 PM Note Text: Follow-up telephone call placed today. Mrs Brito reports she is feeling s omewhat better, less SOB, but she thinks her heart rate is still high. [facility] called yesterday. They wi ll schedule visits with h er. She has INR check on Tuesday and an appointment in Dr Lara office on Tuesday. I will continue to follow closely. Jdaen Machado APRN.CNP PROGRESS Observed: 12/09/2017 Status: COMPLETED Source: [place] 10:55 AM [facility] OTHER [place] REPOSITORY HNO ID: [id number] Author: Nahed Lei) YUSEF Machado.CARMEL Service: (none) Author Type: Nurse Practitioner Type: Progress Notes Filed: 12/09/2017 12:39 PM Note Text: HPI:Graciela Brito is a 67 year old female that returns to the office today for one week post-discharge follow up for severe symptomatic aortic stenosis s/p Aortic valve replacement with #21 [facility] Trifecta bioprosthetic valve performed on 11/28/2017. Her post-operative course was complicated by post-op atrial fibrillation which recurred on 12/03; anticipated pulmonary insufficiency; and volume overload . She was discharged home with [facility] on 12/04 in [facility]. Today, Mrs. Brito is seen in the office with her . She reports she was doing well until last night when she got dizzy while walking. She reports she has had SOB for a few days. She notes swelling in her hands, and some in her feet. She is eating okay, ambulating, pain is tolerable with tylenol and oxycodone. She has a follow-up visit with Dr. Allen's office in December . She is in atrial fibrillation today while in the office. She does not want to go into the hospital at this time. She said she would go to [facility] if she got into trouble at home. Subjective: Current Outpatient Prescriptions: metoprolol tartrate, short acting, (LOPRESSOR) 50 mg tablet Take 1 tablet by mouth twice daily. acetaminophen (TYLENOL) 325 mg tablet Take 2 tablets by mouth every 6 hours as needed. atorvastatin (LIPITOR) 10 mg tablet Take 1 tablet by mouth daily at bedtime. aspirin, enteric coated (ASPIRIN, ENTERIC COATED) 81 mg EC tablet Take 2 tablets by mouth once daily. oxyCODONE-acetaminophen (PERCOCET) 5-325 mg tablet Take 1 tablet by mouth every 6 hours as needed for Pain (moderate to severe pain) for up to 7 days.Earliest Fill Date: 12/04/17 lisinopril (ZESTRIL, PRINIVIL) 10 mg tablet Take 1 tablet by mouth once daily. magnesium oxide (MAG-OX) 400 mg tablet Take 1 tablet by mouth twice daily. senna-docusate (SENNA-S) 8.6-50 mg per tablet Take 1 tablet by mouth twice daily. warfarin (COUMADIN) 2.5 mg tablet Take 1 tablet by mouth daily as directed. Take 5 mg today, then 2.5 mg daily. calcitriol (ROCALTROL) 0.25 mcg capsule Take 0.25 mcg by mouth 3 times a WEEK. clonazePAM (KLONOPIN) 1 mg tablet Take 1 mg by mouth daily at bedtime. levothyroxine (SYNTHROID) 50 mcg tablet Take 50 mcg by mouth once daily. hydroxychloroquine (PLAQUENIL) 200 mg tablet Take 400 mg by mouth once daily. folic acid 1 mg tablet Take 1 mg by mouth once daily. hydroCHLOROthiazide (HYDRODIURIL, ESIDRIX) 25 mg tablet Take 25 mg by mouth once daily. sertraline hcl(ZOLOFT 50 MG TAB) Take one(1) tablet daily. diltiazem (CARDIZEM) 120 mg tablet Take 1 tablet by mouth twice daily. furosemide (LASIX) 20 mg tablet Take 1 tablet by mouth once daily for 2 doses. No current facility-administered medications for this visit. Cipro [Ciprofloxacin]; Contrast Dye; Humira [Adalimumab]; Lantus [Insulin Glargine]; Zithromax [Azithromycin] PAST MEDICAL HISTORY Diagnosis Date - Aortic valve disorders ? followed by PCP - Central apnea - Diabetes mellitus without mention of complication Diabetes mellitus/ RESOVED PER PATIENT - Dyspnea - History of Sjogren's disease - Hypothyroidism - Mixed hyperlipidemia Hyperlipidemia - Myalgia and myositis, unspecified - Nerve damage LEFT ARM - Obesity (BMI 30-39.9) - Rheumatoid arthritis(714.0) - Secondary pulmonary arterial hypertension (HCC) - Unspecified sleep apnea PAST SURGICAL HISTORY Procedure Laterality Date - CARDIAC CATH 10/26/2017 [facility] - DELIVERY ONLY 1970 , low cervical - PAST SURGICAL HISTORY OF 11/28/2017 AVR - REMOVAL GALLBLADDER 1971 Cholecystectomy - REMOVAL OF TONSILS,<12 Y/O 1976 Tonsillectomy - REVISE MEDIAN N/CARPAL TUNNEL SURG Bilateral ' Carpal tunnel decomp - TOTAL ABDOM HYSTERECTOMY 1975 Hysterectomy, DIANDRA - TOTAL KNEE REPLACEMENT Right 2004 Knee replacement, total FAMILY HISTORY Problem Relation Age of Onset - positive [OTHER] Other Sister with MS - Cancer Mother - Coronary Artery Disease Father 63 from [place] - Cervical Cancer Sister - Coronary Artery Disease Brother 45 CABG - Cancer Brother Social History Substance Use Topics - Smoking status: Former Smoker Packs/day: 1.00 Years: 5.00 Types: Cigarettes Quit date: 11/16/1987 - Smokeless tobacco: Never Used Comment: quit 30 yrs ago - Alcohol use No Review of Systems Constitutional: Positive for malaise/fatigue and weight loss. Negative for chills and fever. HENT: Negative for sore throat. Respiratory: Positive for shortness of breath. Negative for cough, sputum production and wheezing. Cardiovascular: Positive for leg swelling. Negative for chest pain, palpitations, orthopnea, claudication and PND. Gastrointestinal: Negative for abdominal pain, blood in stool, constipation, diarrhea, melena, nausea and vomiting. Genitourinary: Negative for dysuria. Musculoskeletal: Negative for falls and joint pain. Skin: No new lesions Neurological: Negative for dizziness, tingling, sensory change, focal weakness, weakness and headaches. Endo/Heme/Allergies: Does not bruise/bleed easily. Psychiatric/Behavioral: Negative for depression. Objective: Physical Examination: Vitals:BP 122/70 Pulse 126 Resp 18 Ht 5' 9 (1.75m) Wt 237 lb 6.4 oz (107.7kg) SpO2 98% BMI 35.04 kg/(m2). Extended Vitals not filed for this encounter. Last 2 Encounter Wt Readings: Date: Wt: 12/09/2017 237 lb 6.4 oz (107.7 kg) 12/04/2017 241 (109.5) --discharge weight 11/23/2017 224 lb (101.6 kg) -- Pre op weight Physical Exam Constitutional: She is oriented to person, place, and time and well-developed, well-nourished, and in no distress. HENT: Head: Normocephalic. Eyes: Pupils are equal, round, and reactive to light. Cardiovascular: Normal rate, regular rhythm, S1 normal, S2 normal and intact distal pulses. No murmur heard. Pulmonary/Chest: Effort normal and breath sounds normal. Very short of breath with ambulation Abdominal: Soft. Normal appearance and bowel sounds are normal. Musculoskeletal: She exhibits edema (DYLAN UE and LE). Neurological: She is alert and oriented to person, place, and time. Gait normal. Skin: Skin is warm and intact. Ecchymosis (abdomen) noted. Midsternal incision clean dry, well approximated, no redness or drainage Sternum is stable and without evidence of malunion SVG site clean dry, no redness, or hematoma, some serosanguinous drainage Assessment and Plan: ASSESSMENT/PLAN: 1. S/P AVR (aortic valve replacement) and aortoplasty - ICD9: V43.3, ICD10: Z95.2 (primary diagnosis) - CONSULT TO CARD REHAB PHASE II - XR CHEST 2V FRONTAL/LAT - for follow-up appointment - ECG COMPLETE W INTERPRETATION - DILTIAZEM 120 MG TABLET - Lasix 20 mg tablets x 3 days for volume overload, a 30 day supply has been provided to the patient 2. Paroxysmal atrial fibrillation (HCC) - ICD9: 427.31, ICD10: I48.0 - ECG COMPLETE W INTERPRETATION - Reveals atrial fibrillation with RVR - DILTIAZEM 120 MG TABLET - Decrease metoprolol to 50 mg BID Nahed Machado APRN.CNP In summary, Mrs. Brito is complex patient and should have close follow-up during the next week. Her Literacy Education Professor has been notified and contact information was provided to the patient. She is instructed to contact me with how she is doing over the next few days. She was advised to go to the ER if she feels worse. Electronically signed by Nahed Machado APRN.CNP on December 09, 2017, 10:55 AM CNOV Observed: 12/09/2017 Status: COMPLETED Source: [place] 10:00 AM [facility] REPOSITORY Office Visit (AGVASACC) GRACIELA BRITO ([id number]) 1950 F Date Time Provider Department 12/09/17 10:00 AM NAHED MACHADO) MONSE During your visit today, we recorded the following information about you: Pulse Respiration Blood pressure Weight 126/minute 18/minute 122/70 107.7 kg Height 1.753 m Nahed Machado APRN.CNP, APRN.CNP 12/09/2017 10:52 AM Addendum -Please follow-up with your primary care physician and your chronometer tester in 3-4 weeks -Please return to cardiac surgery in 3-4 weeks with a chest x-ray done before the appointment -Restriction remain: No lifting more than 10 lbs and No driving. -Cardiac rehab has been consulted. You will be able to begin cardiac rehab after your next visit with us. Contact [facility] to schedule cardiac rehab. -Dr. Allen's office will assist in managing your INR while on coumadin for the atrial fibrillation you experienced post op. -They will attempt to get you an appointment next week with a nurse practitioner. -Call me if they are unable to see you, and we can schedule an appointment - Start diltiazem tonight. - Change metoprolol to 50 mg two time daily - Take your lasix 1 tablet today and 1 tablet tomorrow to boost the fluid removal -Feel free to call us if you have questions or concerns Thank you for coming to see me today! YING Osman APRN.YING SHELL 12/09/2017 12:39 PM Signed HPI:Graciela Brito is a 67 year old female that returns to the office today for one week post-discharge follow up for severe symptomatic aortic stenosis s/p Aortic valve replacement with #21 [facility] Trifecta bioprosthetic valve performed on 11/28/2017. Her post-operative course was complicated by post-op atrial fibrillation which recurred on 12/03; anticipated pulmonary insufficiency; and volume overload . She was discharged home with [facility] on 12/04 in [facility]. Today, Mrs. Brito is seen in the office with her . She reports she was doing well until last night when she got dizzy while walking. She reports she has had SOB for a few days. She notes swelling in her hands, and some in her feet. She is eating okay, ambulating, pain is tolerable with tylenol and oxycodone. She has a follow-up visit with Dr. Allen's office in December . She is in atrial fibrillation today while in the office. She does not want to go into the hospital at this time. She said she would go to [facility] if she got into trouble at home. Subjective: Current Outpatient Prescriptions: metoprolol tartrate, short acting, (LOPRESSOR) 50 mg tablet Take 1 tablet by mouth twice daily. acetaminophen (TYLENOL) 325 mg tablet Take 2 tablets by mouth every 6 hours as needed. atorvastatin (LIPITOR) 10 mg tablet Take 1 tablet by mouth daily at bedtime. aspirin, enteric coated (ASPIRIN, ENTERIC COATED) 81 mg EC tablet Take 2 tablets by mouth once daily. oxyCODONE-acetaminophen (PERCOCET) 5-325 mg tablet Take 1 tablet by mouth every 6 hours as needed for Pain (moderate to severe pain) for up to 7 days.Earliest Fill Date: 12/04/17 lisinopril (ZESTRIL, PRINIVIL) 10 mg tablet Take 1 tablet by mouth once daily. magnesium oxide (MAG-OX) 400 mg tablet Take 1 tablet by mouth twice daily. senna-docusate (SENNA-S) 8.6-50 mg per tablet Take 1 tablet by mouth twice daily. warfarin (COUMADIN) 2.5 mg tablet Take 1 tablet by mouth daily as directed. Take 5 mg today, then 2.5 mg daily. calcitriol (ROCALTROL) 0.25 mcg capsule Take 0.25 mcg by mouth 3 times a WEEK. clonazePAM (KLONOPIN) 1 mg tablet Take 1 mg by mouth daily at bedtime. levothyroxine (SYNTHROID) 50 mcg tablet Take 50 mcg by mouth once daily. hydroxychloroquine (PLAQUENIL) 200 mg tablet Take 400 mg by mouth once daily. folic acid 1 mg tablet Take 1 mg by mouth once daily. hydroCHLOROthiazide (HYDRODIURIL, ESIDRIX) 25 mg tablet Take 25 mg by mouth once daily. sertraline hcl(ZOLOFT 50 MG TAB) Take one(1) tablet daily. diltiazem (CARDIZEM) 120 mg tablet Take 1 tablet by mouth twice daily. furosemide (LASIX) 20 mg tablet Take 1 tablet by mouth once daily for 2 doses. No current facility-administered medications for this visit. Cipro [Ciprofloxacin]; Contrast Dye; Humira [Adalimumab]; Lantus [Insulin Glargine]; Zithromax [Azithromycin] PAST MEDICAL HISTORY Diagnosis Date - Aortic valve disorders ? followed by PCP - Central apnea - Diabetes mellitus without mention of complication Diabetes mellitus/ RESOVED PER PATIENT - Dyspnea - History of Sjogren's disease - Hypothyroidism - Mixed hyperlipidemia Hyperlipidemia - Myalgia and myositis, unspecified - Nerve damage LEFT ARM - Obesity (BMI 30-39.9) - Rheumatoid arthritis(714.0) - Secondary pulmonary arterial hypertension (HCC) - Unspecified sleep apnea PAST SURGICAL HISTORY Procedure Laterality Date - CARDIAC CATH 10/26/2017 [facility] - DELIVERY ONLY 1970 , low cervical - PAST SURGICAL HISTORY OF 11/28/2017 AVR - REMOVAL GALLBLADDER 1971 Cholecystectomy - REMOVAL OF TONSILS,ANDlt;13 Y/O 1976 Tonsillectomy - REVISE MEDIAN N/CARPAL TUNNEL SURG Bilateral ' Carpal tunnel decomp - TOTAL ABDOM HYSTERECTOMY 1975 Hysterectomy, DIANDRA - TOTAL KNEE REPLACEMENT Right 2003 Knee replacement, total FAMILY HISTORY Problem Relation Age of Onset - positive [OTHER] Other Sister with MS - Cancer Mother - Coronary Artery Disease Father 63 from [place] - Cervical Cancer Sister - Coronary Artery Disease Brother 45 CABG - Cancer Brother Social History Substance Use Topics - Smoking status: Former Smoker Packs/day: 1.00 Years: 5.00 Types: Cigarettes Quit date: 11/16/1987 - Smokeless tobacco: Never Used Comment: quit 30 yrs ago - Alcohol use No Review of Systems Constitutional: Positive for malaise/fatigue and weight loss. Negative for chills and fever. HENT: Negative for sore throat. Respiratory: Positive for shortness of breath. Negative for cough, sputum production and wheezing. Cardiovascular: Positive for leg swelling. Negative for chest pain, palpitations, orthopnea, claudication and PND. Gastrointestinal: Negative for abdominal pain, blood in stool, constipation, diarrhea, melena, nausea and vomiting. Genitourinary: Negative for dysuria. Musculoskeletal: Negative for falls and joint pain. Skin: No new lesions Neurological: Negative for dizziness, tingling, sensory change, focal weakness, weakness and headaches. Endo/Heme/Allergies: Does not bruise/bleed easily. Psychiatric/Behavioral: Negative for depression. Objective: Physical Examination: Vitals:BP 122/70 Pulse 126 Resp 18 Ht 5' 9ANDquot; (1.75m) Wt 237 lb 6.4 oz (107.7kg) SpO2 98% BMI 35.04 kg/(m2). Extended Vitals not filed for this encounter. Last 2 Encounter Wt Readings: Date: Wt: 12/09/2017 237 lb 6.4 oz (107.7 kg) 12/04/2017 241 (109.5) --discharge weight 11/23/2017 224 lb (101.6 kg) -- Pre op weight Physical Exam Constitutional: She is oriented to person, place, and time and well-developed, well-nourished, and in no distress. HENT: Head: Normocephalic. Eyes: Pupils are equal, round, and reactive to light. Cardiovascular: Normal rate, regular rhythm, S1 normal, S2 normal and intact distal pulses. No murmur heard. Pulmonary/Chest: Effort normal and breath sounds normal. Very short of breath with ambulation Abdominal: Soft. Normal appearance and bowel sounds are normal. Musculoskeletal: She exhibits edema (DYLAN UE and LE). Neurological: She is alert and oriented to person, place, and time. Gait normal. Skin: Skin is warm and intact. Ecchymosis (abdomen) noted. Midsternal incision clean dry, well approximated, no redness or drainage Sternum is stable and without evidence of malunion SVG site clean dry, no redness, or hematoma, some serosanguinous drainage Assessment and Plan: ASSESSMENT/PLAN: 1. S/P AVR (aortic valve replacement) and aortoplasty - ICD9: V43.3, ICD10: Z95.2 (primary diagnosis) - CONSULT TO CARD REHAB PHASE II - XR CHEST 2V FRONTAL/LAT - for follow-up appointment - ECG COMPLETE W INTERPRETATION - DILTIAZEM 120 MG TABLET - Lasix 20 mg tablets x 3 days for volume overload, a 30 day supply has been provided to the patient 2. Paroxysmal atrial fibrillation (HCC) - ICD9: 427.31, ICD10: I48.0 - ECG COMPLETE W INTERPRETATION - Reveals atrial fibrillation with RVR - DILTIAZEM 120 MG TABLET - Decrease metoprolol to 50 mg BID Nahed Machado APRN.CARMEL In summary, Mrs. Brito is complex patient and should have close follow-up during the next week. Her Literacy Education Professor has been notified and contact information was provided to the patient. She is instructed to contact me with how she is doing over the next few days. She was advised to go to the ER if she feels worse. Electronically signed by Nahed Machado APRN.CNP on December 09, 2017, 10:55 AM Referring Provider: BIRD GARZA [[id number]] Allergies As of Date: 12/09/2017 Noted Allergy Reaction CIPRO (CIPROFLOXACIN) 11/26/2008 4 - Hives CONTRAST DYE 01/01/2009 4 - Hives HUMIRA (ADALIMUMAB) 11/16/2017 12 - Shortness of Breath LANTUS (INSULIN GLARGINE) 01/01/2009 7 - Swelling Comments: 11/2017: per patient, in 2009 experienced throat swelling with Lantus. Has previously used Levemir without problems. ZITHROMAX (AZITHROMYCIN) 01/01/2009 4 - Hives Date Reviewed: 12/09/2017 Reviewed by: Nahed (Infrastructure Director) YUSEF Machado.CARMEL - Fully Assessed Reason for Visit: Post Op [174] Cmt: 11/28/17 AVR Primary Visit Diagnosis:S/P AVR (aortic valve replacement) and aortoplasty [Z95.2] Other Visit Diagnosis:Paroxysmal atrial fibrillation (HCC) [I48.0] Order(s):CONSULT TO CARD REHAB PHASE II [161676] Order #: [id number]: 1 XR CHEST 2V FRONTAL/LAT [8029636] Order #: [id number] FUTURE ECG COMPLETE W INTERPRETATION [ECG01] Order #: [id number] diltiazem (CARDIZEM) 120 mg tabletTake 1 tablet by mouth twice daily.Disp: 60 tabletRfl: 3 metoprolol tartrate, short acting, (LOPRESSOR) 50 mg tabletTake 1 tablet by mouth twice daily.Disp: Rfl: furosemide (LASIX) 20 mg tabletTake 1 tablet by mouth once daily for 30 doses.Disp: 30 tabletRfl: 0 Prescriptions as of 12/09/2017 Sig: METOPROLOL TARTRATE 50 MG TAB* Take 1 tablet by mouth twice * ACETAMINOPHEN 325 MG TABLET Take 2 tablets by mouth every* ATORVASTATIN 10 MG TABLET Take 1 tablet by mouth daily * ASPIRIN 81 MG TABLET,DELAYED * Take 2 tablets by mouth once * OXYCODONE-ACETAMINOPHEN 5 MG-* Take 1 tablet by mouth every * LISINOPRIL 10 MG TABLET Take 1 tablet by mouth once d* MAGNESIUM OXIDE 400 MG TABLET Take 1 tablet by mouth twice * SENNOSIDES 8.6 MG-DOCUSATE SO* Take 1 tablet by mouth twice * WARFARIN 2.5 MG TABLET Take 1 tablet by mouth daily * CALCITRIOL 0.25 MCG CAPSULE Take 0.25 mcg by mouth 3 time* CLONAZEPAM 1 MG TABLET Take 1 mg by mouth daily at b* LEVOTHYROXINE 50 MCG TABLET Take 50 mcg by mouth once walter* HYDROXYCHLOROQUINE 200 MG TAB* Take 400 mg by mouth once walter* FOLIC ACID 1 MG TABLET Take 1 mg by mouth once daily. HYDROCHLOROTHIAZIDE 25 MG TAB* Take 25 mg by mouth once nelia* * ZOLOFT 50 MG TABLET Take one(1) tablet daily. DILTIAZEM 120 MG TABLET Take 1 tablet by mouth twice * FUROSEMIDE 20 MG TABLET Take 1 tablet by mouth once d* Medication notes this encounter FUROSEMIDE 20 MG TABLET >> Ray Hull LPN 12/09/2017 10:13 AM >> RAY HULL LPN TueDec 09, 2017 10:13 AM completed Problem List As Of Date 12/09/2017 Noted Resolved Aortic valve stenosis [I35.0] INVALID FOR* More... Obesity, Class III, BMI >= 40 E66.01 [E66.01] INVALID FOR* S/P AVR (aortic valve replacement) and aortopla*INVALID FOR* Other instructions from your clinician: -Please follow-up with your primary care physician and your chronometer tester in 3-4 weeks -Please return to cardiac surgery in 3-4 weeks with a chest x-ray done before the appointment -Restriction remain: No lifting more than 10 lbs and No driving. -Cardiac rehab has been consulted. You will be able to begin cardiac rehab after your next visit with us. Contact [facility] to schedule cardiac rehab. -Dr. Allen's office will assist in managing your INR while on coumadin for the atrial fibrillation you experienced post op. -They will attempt to get you an appointment next week with a nurse practitioner. -Call me if they are unable to see you, and we can schedule an appointment - Start diltiazem tonight. - Change metoprolol to 50 mg two time daily - Take your lasix 1 tablet today and 1 tablet tomorrow to boost the fluid removal -Feel free to call us if you have questions or concerns Thank you for coming to see me today! Nahed Machado APRN.DRY HEAT ROOM ATTENDANT Prescriptions ordered this encounter Disp Refills Start End DILTIAZEM 120 MG TABLET 60 t* 3 12/09/2017 Class: Print RX Route: ORAL Sig: Take 1 tablet by mouth twice daily. METOPROLOL TARTRATE 50 MG TABLET 12/09/2017 Class: Med Update Route: ORAL Sig: Take 1 tablet by mouth twice daily. FUROSEMIDE 20 MG TABLET 30 t* 0 12/09/2017 01/08/2018 Route: ORAL Sig: Take 1 tablet by mouth once daily for 30 doses. Medications Discontinued During This Encounter metoprolol tartrate, short acting, (* 90 t* 3 12/04/2017 12/09/2017 Class: Print RX Route: ORAL Sig: Take 1 tablet by mouth every 8 hours. Disc: Reason for discontinue is not on file. furosemide (LASIX) 20 mg tablet 2 ta* 0 12/05/2017 12/09/2017 Class: Print RX Route: ORAL Sig: Take 1 tablet by mouth once daily for 2 doses. Disc: Reason for discontinue is not on file. Disposition: Return in about 3 weeks (around 12/30/2017), or if symptoms worsen or fail to improve, for Post op. Follow-up and Disposition History Recorded Encounter Status:Closed by NAHED MACHADO CNP on 12/09/17 ALLIED HE[facility] Observed: 12/04/2017 Status: COMPLETED Source: [facility] 4:33 PM CLINIC OTHER CAMPUS REPOSITORY HNO ID: [id number] Author: Mell Melara LPN Service: Home Care Services Author Type: LICENSED NURSE Type: Allied Health Filed: 12/05/2017 9:07 AM Note Text: GOLF COURSE DESIGNER NOTE SERVICE DATE: 12/05/2017 SERVICE TIME: 906 Discharge: Aware of Discharge home Physician order placed for Home Care Services Home Care Agency: [facility] Start of care date: Patient/Family agree to discharge plan: SN SIGNATURE: Mell Melara LPN PATIENT NAME: Graciela Brito DATE: December 05, 2017 TIME: 9:07 AM ALLIED HEALTH Observed: 12/04/2017 Status: COMPLETED Source: [facility] 4:06 PM CLINIC OTHER CAMPUS REPOSITORY HNO ID: [id number] Author: Marion Walden Service: (none) Author Type: (none) Type: Allied Health Filed: 12/04/2017 4:08 PM Note Text: GOLF COURSE DESIGNER NOTE SERVICE DATE: 12/04/2017 SERVICE TIME: 4:06 PM Discharge: Aware of Discharge home today Physician order placed for Home Care Services Home Care Agency: [facility] Start of care date: 12/05- Patient/Family agree to discharge plan: SN, PT ordered SIGNATURE: Marion Walden PATIENT NAME: Graciela Brito DATE: December 04, 2017 TIME: 4:06 PM CNDS Observed: 12/04/2017 Status: COMPLETED Source: [facility] 12:17 PM CLINIC OTHER CAMPUS REPOSITORY HNO ID: [id number] Author: Nahed Machado APRN.CNP Service: Cardiac Surgery Author Type: Nurse Practitioner Type: Discharge Summaries Filed: 12/05/2017 2:50 PM Note Text: DISCHARGE SUMMARY PATIENT NAME: Graciela Brito Admission Information Admission Information ADMIT DATE: 11/28/2017 DISCHARGE DATE: 12/04/2017 MY DOCTORS AND MEDICAL TEAM: My Main [facility] Doctor: Luke Lester Primary Care Provider: Bird Garza MD My Medical Team Members: Treatment Team: Attending Provider: Luke Lester Consulting: Bairon Camacho MY CONDITION AT DISCHARGE: Stable REASON I WAS IN THE HOSPITAL: Aortic valve replacement and aortic root enlargement SUMMARY OF WHAT HAPPENED WHILE I WAS IN THE HOSPITAL: Mrs. Brito was referred to Dr. Lester for evaluation of a symptomatic severe aortic stenosis, experiencing SOB, fatigue, and postural dizziness. On 11/28, she underwent elective AVR with Dr. Lester. ICU course was complicated by anticipated acute pulmonary insufficiency, post-op Atrial fibrillation which recurred on post-op day 5, volume overload, and acute anticipated blood loss anemia with 1 unit PRBC transfusion. Echo on 12/02 showed bioprosthetic valve is well seated, without perivalvular leak and peak/mean gradients 17/10. Will go home on coumadin for paroxysmal atrial fibrillation, no amiodarone due to allergy, metoprolol 50mg every 8 hours. OTHER PROBLEMS/DIAGNOSIS: Symptomatic severe aortic stenosis s/p AVR with 21mm [facility] Trifecta, aortic root ?Enlargement POD#6 -c/w ASA and BB 50 mg TID -Post-op Echo EF60-65%, AV well seated peak/mean gradient 17/10. -Add lisinopril 10 mg ?? Anticipated acute pulmonary insufficiency s/p CTS -On room air. Encouraged IS and CANDDB -Albuterol WA -Ambulate ?? Post op Afib with RVR -NSR -Metoprolol 50mg TID, PO mag-ox, potassium -Warfarin for home. ?? Volume overload -Wt up 8kg -Daily lasix x 5 days, and resume hydrochlorothiazide ?? JANNETH -c/w CPAP at night ?? Anticipated acute blood loss anemia -s/p 1 unit PRBC -hgb 9.1?today and asymptomatic ?? Mild Thrombocytopenia -resolving OPERATIONS PERFORMED WHILE IN THE HOSPITAL: AVR #[address] Moris Trifecta pericardial valve; Aortic root enlargement with autologous pericardial patch. IMPORTANT TEST/PROCEDURES: Echocardiogram TEST RESULTS NOT AVAILABLE AT THIS TIME: No pending results Discharge Disposition Discharge Disposition: Home With Home Care Activity When You Leave the Hospital Lifting is restricted to: Less than 10 pounds. May use stairs No driving until cleared by surgeon. No walking restrictions Shower and wash incisions daily. No tub bath. Diet Instructions Heart Healthy Fluid restriction 2 liters per day. For Pain When You Leave the Hospital If you become constipated, you may use any glxp-jlo-obxbufa treatment such as Milk of Magnesia, Sennakot, Prune Juice, Suppositories, etc. in addition to the stool softener/fiber supplement You should use an razx-wrf-moyltfk stool softener (Docusate sodium) and/or a fiber supplement (Metamucil, Fiber Con) every day while taking prescribed pain medication Wound/Surgical Site Care Wash your hands frequently, especially before touching your incision, after using restroom and before eating Your incision has skin glue. It will peel off on its own. It can get wet Call Your Doctor If Other: Shortness of breath, chest pain, weight gain, swelling of legs There is an unusual odor from the wound area There is severe pain at the operative site You have lightheadedness, fainting, or confusion You have redness, swelling, pus or drainage from the wound Your temperature is greater than 101F Follow Up Appointments Follow-Up Appointment Please see Dr Allen in 4-6 weeks. I will send him your operative and hospital stay information. With: Cardiology Dr. Allen When: In 6 weeks Patient/Parents to call for appointment?: Yes Call [phone] to schedule. Follow-Up Appointment We will call you on Tuesday to schedule an appointment for Saturday 12/09 You may call me if you have any questions at any time. When: In 1 week Nahed GonzalezInfrastructure Director) Sharad [phone] [address] [facility] [id number] PCP Requested Referral FOLLOW-UP APPOINTMENTS ALREADY SCHEDULED WITH A [facility] PROVIDER: Jesus Gardner [facility] to schedule an appointment for 12/09/2017 DISCHARGE MEDICATION: Current Discharge Medication List START taking these medications acetaminophen (TYLENOL) 650 mg Take 650 mg by mouth every 6 hours as needed. atorvastatin (LIPITOR) 10 mg Take 10 mg by mouth daily at bedtime. Qty: 30 tablet Refills: 3 metoprolol tartrate (short acting) (LOPRESSOR) 50 mg Take 50 mg by mouth every 8 hours. Qty: 90 tablet Refills: 3 oxyCODONE-acetaminophen (PERCOCET) 1 tablet Take 1 tablet by mouth every 6 hours as needed for Pain (moderate to severe pain). Earliest Fill Date: 12/04/17 Qty: 28 tablet Refills: 0 Associated Diagnoses:S/P AVR magnesium oxide (MAG-OX) 400 mg Take 400 mg by mouth twice daily. Qty: 60 tablet Refills: 3 senna-docusate (SENNA-S) 1 tablet Take 1 tablet by mouth twice daily. Qty: 60 tablet Refills: 1 warfarin (COUMADIN) 2.5 mg Take 2.5 mg by mouth daily as directed. Take 5 mg today, then 2.5 mg daily. Qty: 60 tablet Refills: 2 CONTINUE these medications which have CHANGED aspirin, enteric coated (ASPIRIN, ENTERIC COATED) 162 mg Take 162 mg by mouth once daily. Qty: 60 tablet Refills: 3 lisinopril (ZESTRIL, PRINIVIL) 10 mg Take 10 mg by mouth once daily. Qty: 30 tablet Refills: 1 CONTINUE these medications which have NOT CHANGED clonazePAM (KlonoPIN) 1 mg Take 1 mg by mouth daily at bedtime. Refills: 2 levothyroxine (SYNTHROID) 50 mcg Take 50 mcg by mouth once daily. hydroxychloroquine (PLAQUENIL) 400 mg Take 400 mg by mouth once daily. folic acid 1 mg Take 1 mg by mouth once daily. hydroCHLOROthiazide (HYDRODIURIL, ESIDRIX) 25 mg Take 25 mg by mouth once daily. sertraline hcl(ZOLOFT 50 MG TAB) Take one(1) tablet daily. Qty: 100 Refills: 4 calcitriol (ROCALTROL) 0.25 mcg Take 0.25 mcg by mouth 3 times a WEEK. STOP taking these medications METHOTREXATE, BULK, MISC 2.5 mg Comments: Reason for Stopping: simvastatin (ZOCOR) 20 mg Comments: Reason for Stopping: isosorbide mononitrate ER (IMDUR) 30 mg Comments: Reason for Stopping: Discharge Physical Exam: VITAL SIGNS: BP (!) 123/38 Pulse (!) 56 Temp 36.3 ?C (97.3 ?F) (Oral) Resp 20 Ht 144.8 cm (4' 9) Wt 109.5 kg (241 lb 6.4 oz) SpO2 93% BMI 52.24 kg/m2 GENERAL: Alert, no distress, cooperative SKIN: Skin color, texture, turgor normal. No rashes or lesions. LUNGS: Lungs clear to auscultation, Good diaphragmatic excursion CARDIAC: Normal S1 and S2; no rubs, murmurs, or gallops, No murmur ABDOMEN: Abdomen soft, non-tender, BS normal, No masses or organomegaly EXTREMITIES: Negative findings: No evidence of muscle atrophy, ROM of all joints is normal, Strength normal, Positive findings: Edema: slight pitting edema Bilateral ankles NEURO: Grossly normal cognition, motor function, and cranial nerves III-XII, Gait normal. Reflexes normal and symmetric. Sensation grossly intact PULSES: 2+ radial, 2+ dorsalis pedis WOUND: Clean, dry and intact, Well approximated incision The remainder of the physical exam is noncontributory. TIME OF CARE: Discharge Management: I personally spent greater than 30 minutes involved in the discharge management of this patient. SIGNATURE: Nahed Machado CNP PAGER/CONTACT #: [phone] DATE: December 04, 2017 TIME: 12:17 PM GLUCOSE METER Collected: 12/04/2017 Status: F Source: [facility] 11:21 AM HEALTH SYSTEM REPOSITORY TYPE CODE TESTS RESULT OUT OF REFERENCE UNITS RANGE LAB GLUBL(LOINC 70-99 mg/dL ) High Glucose Meter 131 Result Comment: RN NOTIFIED Performed By: #### GLMET #### [place] [address] PROGRESS Observed: 12/04/2017 Status: COMPLETED Source: [facility] 9:12 AM CLINIC OTHER CAMPUS REPOSITORY HNO ID: [id number] Author: Nahed Machado Service: Cardiac Surgery Author Type: Nurse Practitioner Type: Progress Notes Filed: 12/04/2017 9:13 AM Note Text: CARDIOTHORACICSURGERY PROGRESS NOTE SERVICE DATE: 12/04/2017 SERVICE TIME: 9:13 AM Pulled. Atrial and Ventricular Pacing Wires removed. Patient tolerated procedure well. No immediate complications noted. Nursing notified. Pt educated to rest in bed x 1 hour. SIGNATURE: Nahed Machado CNP PATIENT NAME: Graciela Brito DATE: December 04, 2017 TIME: 9:13 AM PAGER/CONTACT #: [phone] ETX#[id number] GLUCOSE METER Collected: 12/04/2017 Status: F Source: [facility] 7:47 AM HEALTH SYSTEM REPOSITORY TYPE CODE TESTS RESULT OUT OF REFERENCE UNITS RANGE LAB GLUBL(LOINC 70-99 mg/dL ) High Glucose Meter 124 Result Comment: RN NOTIFIED Performed By: #### GLMET #### [place] [address] PROTIME Collected: 12/04/2017 Status: F Source: [facility] 3:10 AM HEALTH SYSTEM REPOSITORY TYPE CODE TESTS RESULT OUT OF REFERENCE UNITS RANGE LAB PTI(LOINC) 9.3-11.9 sec Prothrombin Time 10.6 LAB INR(LOINC) INR 1.00 Result Comment: Standard Therapy 2.0-3.0 High Dose 2.5-3.5 Performed By: #### PT #### [place] [address] GLUCOSE METER Collected: 12/03/2017 Status: F Source: [facility] 8:46 PM HEALTH SYSTEM REPOSITORY TYPE CODE TESTS RESULT OUT OF REFERENCE UNITS RANGE LAB GLUBL(LOINC 70-99 mg/dL ) High Glucose Meter 132 Performed By: #### GLMET #### [place] [address] GLUCOSE METER Collected: 12/03/2017 Status: F Source: [facility] 4:40 PM HEALTH SYSTEM REPOSITORY TYPE CODE TESTS RESULT OUT OF REFERENCE UNITS RANGE LAB GLUBL(LOINC 70-99 mg/dL ) High Glucose Meter 193 Performed By: #### GLMET #### [place] [address] PROTIME Collected: 12/03/2017 Status: F Source: [facility] 2:53 PM HEALTH SYSTEM REPOSITORY TYPE CODE TESTS RESULT OUT OF REFERENCE UNITS RANGE LAB PTI(LOINC) 9.3-11.9 sec Prothrombin Time 10.8 LAB INR(LOINC) INR 1.02 Result Comment: Standard Therapy 2.0-3.0 High Dose 2.5-3.5 Performed By: #### PT #### [facility] [address] [place] [id number] GLUCOSE METER Collected: 12/03/2017 Status: F Source: [facility] 11:43 AM HEALTH SYSTEM REPOSITORY TYPE CODE TESTS RESULT OUT OF REFERENCE UNITS RANGE LAB GLUBL(LOINC 70-99 mg/dL ) High Glucose Meter 145 Result Comment: RN NOTIFIED Performed By: #### GLMET #### [facility] [address] [place], [place] [address] THERAPY NT Observed: 12/03/2017 Status: COMPLETED Source: [facility] 10:26 AM CLINIC OTHER CAMPUS REPOSITORY HNO ID: [id number] Author: Marie GonzalezOtr/Bryce Stokes Service: Occupational Therapy Author Type: Occupational Therapist Type: Therapy (PT/OT/Speech/Resp) Filed: 12/03/2017 10:31 AM Note Text: Occupational Therapy Evaluation SERVICE DATE: 12/03/2017 SERVICE TIME: 1000 to 1020 ROOM: [id number] Recommended Discharge Disposition: Home OT Recommended Discharge Disposition Comments: 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 Occupational Performance - Pt presents with deficits in feeding, grooming, UE bathing/dressing, LE bathing/dressing, functional transfers, functional mobility, decreased safety awareness, decreased insight into deficits Complexity in Clinical Decision Making - The extent of clinical reasoning was low, number of treatment options limited, no need for modifications during the evaluation process, no comorbidities present to affect patient's occupational performance. Patient Disposition at Start of Session: OOB in Chair Patient Disposition at End of Session: OOB in Chair;Call [place] in Reach Tolerance Limited By Fatigue Occupational Therapy Problem List: Impaired Self Care;Decreased Activity Tolerance Patient /Caregiver Goals: Go Home Goals for Plan of Care: Grooming with: Independent (standing sinkside) Upper Body Dressing with: Set Up Lower Body Dressing with: Minimal Assistance Tolerate (minutes of functional activity): 25 Functional Activity with: Supervision Additional Goal 1: Dof/Don sternal vest with set up assist Demonstrate Competence With Education with: Verbal Cues Only (to maintain sternal precautions) Rehab Potential: Good PLAN: Treatment Frequency (times per week): 5 (1-5x/week) Current admission Treatment Interventions: Education;Self Care / Home Management Plan of Care developed with: Patient TREATMENT INTERVENTIONS: Therapy Diagnosis: Decreased activities of daily living (ADL) Interventions Provided: Evaluation;Self Fpc Management (17459) $ Evaluation-Low (31982) Billed Units: 1 unit Self Fpc Management (35110) Treatment Minutes: 8 1 unit Skilled Intervention(s): Instructed in post-op instructions during ADLs including sternal precautions. Instructed in don/doff of sternal vest (pt still has lead wires in place.. not fully doffed); allowed time for questions, patient demonstrates good understanding of vest. Reviewed ROSE sandoval, patient states spouse will be able to assist at home. Reviewed safety with bathroom transfers and shower transfer; to utilize available equipment if needed. Encouraged patient to have family assist with meals and household tasks to facilitate improved healing. Total Timed Code Treatment Minutes: 8 Total Treatment Time (minutes): 20 FUNCTIONAL G CODE: OT 6 Clicks Score: 19 (12/03/17 1000) Self Care Current Status (G8987): CK (12/03/17 1000) Self Care Goal Status (G8988): CJ (12/03/17 1000) Based on clinical assessment and the score on the 6 Clicks Functional Assessment Tool, the G code and corresponding severity modifiers are documented above. SUBJECTIVE: Current Hospital Course: Chart reviewed; Pt admitted wiht aortic valve stenosis, s/p aortic valve replacement 11/28/17. Experienced some increased respiratory difficulty post op exacerbated by JANNETH requiring Bipap. Now on 2L O2. PAST MEDICAL HISTORY Diagnosis Date - Aortic valve disorders ? followed by PCP - Central apnea - Diabetes mellitus without mention of complication Diabetes mellitus/ RESOVED PER PATIENT - Dyspnea - History of Sjogren's disease - Hypothyroidism - Mixed hyperlipidemia Hyperlipidemia - Myalgia and myositis, unspecified - Nerve damage LEFT ARM - Obesity (BMI 30-39.9) - Rheumatoid arthritis(714.0) - Secondary pulmonary arterial hypertension (HCC) - Unspecified sleep apnea PAST SURGICAL HISTORY Procedure Laterality Date - CARDIAC CATH 10/26/2017 [facility] - DELIVERY ONLY 1969 , low cervical - REMOVAL GALLBLADDER 1971 Cholecystectomy - REMOVAL OF TONSILS,<12 Y/O 1976 Tonsillectomy - REVISE MEDIAN N/CARPAL TUNNEL SURG Bilateral 90' Carpal tunnel decomp - TOTAL ABDOM HYSTERECTOMY 1975 Hysterectomy, DIANDRA - TOTAL KNEE REPLACEMENT Right 2003 Knee replacement, total Reason for Occupational Therapy Consult: s/p aortic valve replacement Relevant Past Medical History: aortic valve stenosis Patient Report: Pt up in chair, slouched down. IDx2, reports being uncomfortable due to chair position, but no c/o pain. Agreeable to work with OT and receptive to information provided. Plans to return home with spouse. Per patient, spouse has the beginning stages of Alzheimer's.. He's a little slower but she also reports that spouse will be able to assist as needed at home. Home Environment Patient Lives With: Significant Other (spouse has mild dementia) Assistance Available: 24 Hour Entry To Home: Stairs;With Rail Number Of Stairs Into Home: 2 Number Of Stairs To Bed/Bath: 0 Tub/Shower Type: tub/shower combo Laundry: spouse provides Equipment Owned: Wheeled Walker;Cane;Grab Bars-Shower Prior Functional Level: Within Functional Limits;Required Assistance Assistance Required With: Laundry Prior Functional Level Comments: OBJECTIVE: Responsiveness: Alert Follows Commands: 3-step Commands Vision Deficits: Wears glasses CURRENT FUNCTIONAL STATUS: Current Activities of Daily Living Assist Level Feeding Set Up Grooming Set Up Bathing Upper Body Minimal Assistance Bathing Lower Body Maximal Assistance Dressing Upper Body Minimal Assistance Dressing Lower Body Maximal Assistance Toileting Supervision Functional Mobility Assist Level Rolling (up in chair upon arrival) Supine to Sit Sit to Supine Scooting Sit to Stand Supervision Stand to Sit Supervision Bed to Chair Supervision Toilet/Commode Supervision Functional Mobility Supervision Shower Transfer: (discussed utilizing grab bar for safety) Activity Tolerance: (slightly fatigued following mobility to bathroom) Please see discipline specific clinical documentation flowsheet for complete details for this therapy evaluation/treatment. SIGNATURE: Marie Stokes OTR/L PATIENT NAME: Graciela Brito DATE: December 03, 2017 TIME: 10:26 AM PAGER: [phone] PROGRESS Observed: 12/03/2017 Status: COMPLETED Source: [facility] 9:55 AM CLINIC OTHER CAMPUS REPOSITORY O ID: [id number] Author: Nahed Machado Service: Cardiac Surgery Author Type: Nurse Practitioner Type: Progress Notes Filed: 12/03/2017 10:33 AM Note Text: CARDIOTHORACIC SURGERY POSTOP PROGRESS NOTE SERVICE DATE: 12/03/2017 SERVICE TIME: 9:55 AM Subjective S/P SURGERY: Procedure(s) (LRB): AVR #[address] Moris Trifecta pericardial valve; Aortic root enlargement with autologous pericardial patch. DATE OF SURGERY: 11/28/2017 POSTOP DAY #5 LOS: 5 INTERVAL EVENTS / PERTINENT ROS: Mrs. Brito was referred to Dr. Lester for evaluation of a symptomatic severe aortic stenosis, experiencing SOB, fatigue, and postural dizziness. On 11/28, she underwent elective AVR with Dr. Lester. ICU course was complicated by anticipated acute pulmonary insufficiency, pot-op Atrial fibrillation, volume overload, and acute anticipated blood loss anemia with 1 unit PRBC transfusion. Echo on 12/02 showed bioprosthetic valve is well seated, without perivalvular leak and peak/mean gradients 05/07. Today, Mrs Brito states she feels well, mildly SOB with atrial fibrillation, feels off. ambulating, eating okay, scant bm. Objective Admission Weight: 101.6 kg (224 lb) BP (!) 133/35 Pulse 68 Temp 36.7 ?C (98.1 ?F) (Oral) Resp 20 Ht 144.8 cm (4' 9) Wt 109.5 kg (241 lb 6.4 oz) SpO2 92% BMI 52.24 kg/m2 Body surface area is 2.1 meters squared. Min/Max/Average Temperature AND Blood Pressure: Temp (24hrs), Av.7 ?C (98 ?F), Min:36.4 ?C (97.5 ?F), Max:37.1 ?C (98.8 ?F) Systolic (24hrs), Av , Min:121 , Max:144 Diastolic (24hrs), Av, Min:35, Max:65 Intake/Output Summary (Last 24 hours) at 12/03/17 0955 Last data filed at 12/03/17 0400 Gross per 24 hour Intake 720 ml Output 301 ml Net 419 ml TELEMETRY: atrial fibrillation PHYSICAL EXAM: General Appearance: well developed, obese and no distress Skin: Midsternal incision dry AND intact., SVG incisions dry AND intact., warm and dry Lungs: clear and respiratory effort: abnormal Heart: pacing wires present and Irregularly irregular Peripheral Vascular/Arteries: pulses intact Abdomen: soft, round, non-tender and bowel sounds present Extremities: edema: 2+, pitting at pretibial Lines, Drains, and Airways Line Peripheral 12/02/17 1819 Right Arm 20 Gauge less than 1 day DATA: Diagnostic tests reviewed for today's visit: Significant Lab Results: As Below Chest X-RAY: 12/03/2017 IMPRESSION: Findings suggestive of mild pulmonary edema versus CHF. Small bilateral pleural effusions, left greater than right with atelectasis versus consolidation involving the posterior segments of the lower lobes bilaterally. Mild cardiomegaly. ? Aortic valve prosthesis ECHO: 12/02/2017 Findings: Left Ventricle: Normal left ventricular size and systolic function. No regional wall motion abnormalities. Abnormal septal motion consistent with post surgery. LVEF is 60-65% by visual estimation. Right Ventricle: The right ventricle is not well visualized. On limited views, it has grossly normal size and function. Aortic Valve: A bioprosthetic aortic valve is present. It is not well visualized do to technically poor image quality. It appears to be well seated with no perivalvular regurgitation. The peak and mean transvalvular gradients are 17 and 10 mmHg, representing normal valvular flow. Tricuspid Valve: Mild to moderate (1-2+) tricuspid valve regurgitation. Mild pulmonary hypertension. Right ventricular systolic pressure is estimated at 37 mmHg. Pulmonic Valve: Limited study; not assessed Ascending Aorta: Limited study; not assessed Pericardium: No evidence of pericardial effusion. Vena Cava: The Inferior Vena Cava was not well visualized. Recent Labs 12/03/17 0320 12/02/17 0400 12/01/17 0445 RBC 2.76* 2.94* 2.66* WBC 13.49* 10.54* 11.19* HB 8.5* 9.1* 8.2* HCT 27.1* 27.3* 24.8* PLT 168* 129* 100* NA 135* 135* 133* K 4.6 4.5 4.3 CHLOR 104 103 103 CO2 26 25 23 BUN 35* 36* 33* CREAT 1.14* 1.21* 1.39* GLUC 126* 119* 125* CA 8.5 8.2* 7.8* ANION 10 12 11 Assessment/Plan Symptomatic severe aortic stenosis s/p AVR with 21mm [facility]. Moris Trifecta, aortic root ?Enlargement POD#5 -c/w ASA and BB 25mg TID -Post-op Echo EF60-65%, AV functioning, PHTN and 1-2+ TR -Add lisinopril 10 mg ?? Anticipated acute pulmonary insufficiency s/p CTS -Wean O2 as able. Encouraged IS and CANDDB -Albuterol WA -Ambulate ?? Post op Afib with RVR -currently afib this am, stable VS -Metop IV, PO mag, Consider diltiazem vs. PO amio -Increase metoprolol 50mg TID ?? Volume overload -If BP stable after increasing BB, will diurese. -Wt up 8kg -lasix 40mg -Monitor SCr and lytes ?? JANNETH -c/w CPAP at night ?? Anticipated acute blood loss anemia -Resolving -s/p 1 unit PRBC -hgb 9.1 today and asymptomatic ?? Mild Thrombocytopenia -resolving Tests/Labs Ordered: 1. None SIGNATURE: Nahed Machado CNP PATIENT NAME: Graciela Brito DATE: December 03, 2017 TIME: 9:55 AM PAGER/CONTACT #: [phone] ETX [id number] GLUCOSE METER Collected: 12/03/2017 Status: F Source: [facility] 9:06 AM HEALTH SYSTEM REPOSITORY TYPE CODE TESTS RESULT OUT OF REFERENCE UNITS RANGE LAB GLUBL(LOINC 70-99 mg/dL ) High Glucose Meter 106 Performed By: #### GLMET #### [facility] [address] [address] CHEST 2 VIEWS Observed: 12/03/2017 Status: F Source: [facility] 7:55 AM HEALTH SYSTEM REPOSITORY Performed at [facility] APPROVED BY: SIVA REED MD EXAMINATION: CHEST RADIOGRAPH (2 VIEW FRONTAL & LATERAL) Clinical History: Status post aortic valve repair. MQ: XC2_4 Comparison: 12/01/2017 RESULT: Lines, tubes, and devices: Examination limited due to overlying EKG leads. Lungs and pleura: Small bilateral pleural effusions, larger on the left. There is associated compressive atelectasis versus consolidation involving the posterior segments of the lower lobes bilaterally, worse on the left. No pneumothorax. Scattered prominent interstitial opacities, suggestive of edema. Cardiomediastinal silhouette: Mild cardiomegaly. Status post median sternotomy, wires are intact. Aortic valve prosthesis noted. Atherosclerotic calcifications of the thoracic aorta. Other: Multilevel degenerative changes of the thoracic and upper lumbar spine. Atherosclerotic calcifications of the abdominal aorta. IMPRESSION: Findings suggestive of mild pulmonary edema versus CHF. Small bilateral pleural effusions, left greater than right with atelectasis versus consolidation involving the posterior segments of the lower lobes bilaterally. Mild cardiomegaly. Aortic valve prosthesis. HEMOGRAM Collected: 12/03/2017 Status: F Source: [facility] 3:20 AM HEALTH SYSTEM REPOSITORY TYPE CODE TESTS RESULT OUT OF REFERENCE UNITS RANGE LAB WBC(LOINC) 3.98-10.04 thou/cmm High WBC 13.49 LAB RBC(LOINC) 3.93-5.22 mil/cmm Low RBC 2.76 LAB HGB(LOINC) 11.2-15.7 g/dL Low Hgb 8.5 LAB HCT(LOINC) 34.1-44.9 % Low Hct 27.1 LAB MCV(LOINC) 79.4-94.8 fl High MCV 98.2 LAB MCH(LOINC) 25.6-32.2 pg MCH 30.8 LAB MCHC(LOINC) 31.6-34.8 % Low MCHC 31.4 LAB RDW(LOINC) 11.7-14.4 % High RDW 14.5 LAB RDWSD(LOINC 36.4-46.3 fl ) High RDW SD 51.3 LAB PLT(LOINC) 182-369 thou/cmm Low Platelet 168 LAB MPV(LOINC) 9.4-12.3 fl MPV 10.4 Performed By: #### CBC1 #### [place] [address] BASIC PANEL Collected: 12/03/2017 Status: F Source: [facility] 3:20 AM HEALTH SYSTEM REPOSITORY TYPE CODE TESTS RESULT OUT OF REFERENCE UNITS RANGE LAB NA(LOINC) 136-145 mEq/L Low Sodium Blood 135 LAB K(LOINC) 3.5-5.1 mEq/L Potassium Blood 4.6 LAB CL(LOINC) 98-107 mEq/L Chloride Blood 104 LAB CO2(LOINC) 21-32 mEq/L CO2 Blood 26 LAB GLU(LOINC) 70-99 mg/dL Glucose High Blood 126 LAB BUN(LOINC) 7-18 mg/dL BUN High Blood 35 LAB CREA(LOINC 0.51-0.95 mg/dL ) High Creatinine Blood 1.14 LAB CA(LOINC) 8.5-10.1 mg/dL Calcium Blood 8.5 LAB ANGAP(LOIN 8-16 C) Anion Gap 10 Performed By: #### P8 #### [place] [address] MDRD GFR Collected: 12/03/2017 Status: F Source: [facility] 3:20 AM HEALTH SYSTEM REPOSITORY TYPE CODE TESTS RESULT OUT OF RANGE REFERENCE UNITS LAB GFRFN(LOINC >60mL/min/1.73m ) 2 eGFR 47.57 Result Comment: If the patient is , multiply the result by 1.210. Performed By: #### GFR #### [place] [address] GLUCOSE METER Collected: 12/02/2017 Status: F Source: [facility] 8:25 PM HEALTH SYSTEM REPOSITORY TYPE CODE TESTS RESULT OUT OF REFERENCE UNITS RANGE LAB GLUBL(LOINC 70-99 mg/dL ) High Glucose Meter 153 Performed By: #### GLMET #### [place] [address] GLUCOSE METER Collected: 12/02/2017 Status: F Source: [facility] 5:07 PM HEALTH SYSTEM REPOSITORY TYPE CODE TESTS RESULT OUT OF REFERENCE UNITS RANGE LAB GLUBL(LOINC 70-99 mg/dL ) High Glucose Meter 135 Result Comment: RN NOTIFIED Performed By: #### GLMET #### [facility] [address] [id number] PROGRESS Observed: 12/02/2017 Status: COMPLETED Source: [facility] 4:26 PM [facility] OTHER [place] REPOSITORY HNO ID: [id number] Author: Johanna GonzalezRn) HANS Marti Service: Cardiovascular Testing Author Type: Registered Nurse Type: Progress Notes Filed: 12/02/2017 4:27 PM Note Text: Echocardiogram with Definity completed. Patient educated prior to start of procedure and voiced understanding. Definity administered by Corin Hair RN via right subclavian without difficulty. Tolerated well. THERAPY NT Observed: 12/02/2017 Status: COMPLETED Source: [facility] 2:57 PM [facility] REPOSITORY HNO ID: [id number] Author: Yohana GonzalezOtr/L) Cynthia Service: Occupational Therapy Author Type: Occupational Therapist Type: Therapy (PT/OT/Speech/Resp) Filed: 12/02/2017 2:57 PM Note Text: OCCUPATIONAL THERAPY MISSED VISIT SERVICE DATE: 12/02/2017 SERVICE TIME: 1456 to 1456 ROOM: [place] [address] Attempted Evaluation. Patient not seen due to Test/Procedure (off floor cardiac testing). Will reattempt as able. SIGNATURE: YEE Reynolds/Umberto PATIENT NAME: Graciela Briot DATE: December 02, 2017 TIME: 2:57 PM PAGER/CONTACT #: CASE MANAGEM Observed: 12/02/2017 Status: COMPLETED Source: [facility] 12:38 PM [facility] REPOSITORY HNO ID: [id number] Author: Rimma Anne RN Service: Care Management Author Type: Registered Nurse Type: Care Mgt Progress Note Filed: 12/02/2017 12:40 PM Note Text: CARE MANAGEMENT PROGRESS NOTE SERVICE DATE: 12/02/2017 SERVICE TIME: 12:38 PM LOS: 4 days Needs Prior to Discharge: Home Care Order;OT/PT Evaluation Notes reviewed. Patient s/p AVR POD #4. Likely discharge to home Sun. or Mon. with [facility]. [facility]NS referral ongoing. SIGNATURE: Rimma Anne RN PATIENT NAME: Graciela Brito DATE: December 02, 2017 TIME: 12:38 PM PAGER/CONTACT #: [phone] GLUCOSE METER Collected: 12/02/2017 Status: F Source: [facility] 11:48 AM HEALTH SYSTEM REPOSITORY TYPE CODE TESTS RESULT OUT OF REFERENCE UNITS RANGE LAB GLUBL(LOINC 70-99 mg/dL ) High Glucose Meter 128 Result Comment: RN NOTIFIED Performed By: #### GLMET #### [facility] [address] [address] PROGRESS Observed: 12/02/2017 Status: COMPLETED Source: [facility] 11:00 AM CLINIC OTHER CAMPUS REPOSITORY HNO ID: [id number] Author: Nahed Machado Service: Cardiac Surgery Author Type: Nurse Practitioner Type: Progress Notes Filed: 12/02/2017 12:08 PM Note Text: CARDIOTHORACIC SURGERY POSTOP PROGRESS NOTE SERVICE DATE: 12/02/2017 SERVICE TIME: 11:57 AM Subjective S/P SURGERY: Procedure(s) (LRB): AVR #[address] Moris Trifecta pericardial valve; Aortiic root enlargement with autologous pericardial patch. DATE OF SURGERY: 11/28/2017 POSTOP DAY #4 LOS: 4 INTERVAL EVENTS / PERTINENT ROS: Mrs. Brito was referred to Dr. Lester for evaluation of a symptomatic severe aortic stenosis, experiencing SOB, fatigue, and postural dizziness. On 11/28, she underwent elective AVR with Dr. Lester. ICU course was complicated by anticipated acute pulmonary insufficiency, pot-op Atrial fibrillation, volume overload, and acute anticipated blood loss anemia with 1 unit PRBC transfusion. Today Mrs Brito reports she is doing quite well, pain is improving, walking and eating some. Wants BM. Objective Admission Weight: 101.6 kg (224 lb) BP (!) 124/42 Pulse 69 Temp 36.7 ?C (98.1 ?F) (Oral) Resp 18 Ht 144.8 cm (4' 9) Wt 109.6 kg (241 lb 10 oz) SpO2 100% BMI 52.29 kg/m2 Body surface area is 2.1 meters squared. Min/Max/Average Temperature AND Blood Pressure: Temp (24hrs), Av.9 ?C (98.5 ?F), Min:36.6 ?C (97.9 ?F), Max:37.7 ?C (99.9 ?F) Systolic (24hrs), Av , Min:101 , Max:142 Diastolic (24hrs), Av, Min:34, Max:81 Intake/Output Summary (Last 24 hours) at 12/02/17 1100 Last data filed at 12/02/17 0400 Gross per 24 hour Intake 480 ml Output 252 ml Net 228 ml TELEMETRY: normal sinus rhythm PHYSICAL EXAM: General Appearance: well developed, obese and no distress Skin: Midsternal incision dry AND intact., warm and dry Neck: no carotid bruits Lungs: decreased breath sounds and respiratory effort: normal Heart: S1, S2 normal and pacing wires present Peripheral Vascular/Arteries: pulses intact Abdomen: soft, round, non-tender, bowel sounds present and hypoactive Extremities: normal exam of the extremities and edema: 2+, pitting at pretibial Lines, Drains, and Airways Line Central Line Quadruple Lumen 11/28/17 1200 Non-tunneled Right Neck 3 days DATA: Diagnostic tests reviewed for today's visit: Significant Lab Results: Below Chest X-RAY: . Recent Labs 12/02/17 0400 12/01/17 0445 11/30/17 1555 11/30/17 0454 RBC 2.94* 2.66* -- 2.16* WBC 10.54* 11.19* -- 8.40 HB 9.1* 8.2* 8.3* 6.9* HCT 27.3* 24.8* 25.4* 21.4* PLT 129* 100* -- 89* NA 135* 133* 133* 133* K 4.5 4.3 4.1 4.4 CHLOR 103 103 101 102 CO2 25 23 23 24 BUN 36* 33* 30* 27* CREAT 1.21* 1.39* 1.37* 1.28* GLUC 119* 125* 135* 151* CA 8.2* 7.8* 8.0* 7.4* MG -- -- -- 2.3 ANION 12 11 13 11 Recent Labs 11/29/17 1200 PH 7.331* PCO2 45.8 PO2 121.9* BE -2.1 Assessment/Plan Symptomatic severe aortic stenosis s/p AVR with 21mm St. Moris Trifecta, aortic root ?Enlargement POD#3 -dc chest tubes -c/w ASA and BB (increase to 25mg TID) -Keep quad lumen central line for IV access since poor peripheral IV access ?? Anticipated acute pulmonary insufficiency s/p CTS -Wean O2 as able. Encouraged IS and CANDDB -Albuterol WA -Ambulate ?? Post op Afib with RVR - Remains NSR. -C/w metoprolol. ? Anticipated vasodilation s/p CTS -Resolved ?? Volume overload -If BP stable after increasing BB, will diurese. -Wt up 9kg -lasix 40mg -Monitor SCr and lytes ? JANNETH -c/w CPAP at night ?? Anticipated acute blood loss anemia -s/p 1 unit PRBC -hgb 9.1 today and asymptomatic ?? Mild Thrombocytopenia -Improving ?? DVT ppx -Lovenox and SCDs ? Dispo: Home with home health care when medically ready Likely Tuesday or tuesday ? Tests/Labs Ordered: 1. Chest X-ray 2. Echocardiogram 3. BMP 4. CBC SIGNATURE: Nahed Machado CNP PATIENT NAME: Graciela Brito DATE: December 02, 2017 TIME: 11:00 AM PAGER/CONTACT #: [phone] ETX [id number] ALLIED HEALTH Observed: 12/02/2017 Status: COMPLETED Source: [facility] 10:22 AM CLINIC OTHER CAMPUS REPOSITORY O ID: [id number] Author: Vivian Packer (Ex Phys) Tyree Service: Cardiac Rehab Author Type: Jewelry Dipper Type: Allied Health Filed: 12/02/2017 10:26 AM Note Text: CARDIAC REHABILITATION PATIENT EDUCATION PROGRESS NOTE Name: Graciela Brito Date of Service:12/02/17 Time of Service: 10:22 AM ASSESSMENT: Risk Factors Identified: Age Diabetic: Non-Insulin Dependent Family History Gender Hyperlipidemia Hypertension Obesity Sedentary Lifestyle RECOMMENDATIONS: Patient interested in Phase II Outpatient Cardiac Rehab: Yes. Facility Preferred: [place]. Advised patient to f/u with chronometer tester in the [place] area for referral/order for Cardiac rehab in [place]. DIAGNOSIS: AVR with 21mm St. Moris Trifecta pericardial prosthesis READINESS TO LEARN: Cognitive Ability: Alert and Oriented Motivation to Learn: Interested Family Support: Unable to assess - Family not present Instruction Provided To: Patient Patient Learns Best By: Individual Instruction, Written Instruction - Hand-outs and Verbal Instruction Factors Affecting Learning: None Physical Limitations Affecting Learning: None LEARNING RESPONSE: Method Of Instruction: Teach Back method used and patient understood education given. Individual instruction Written instruction - handouts Verbal instruction Patient/Family Response: Verbalizes understanding of: cardiac risk factors, incision care and restrictions, home walking program and benefits of cardiac rehab. Follow-up Plan: No further educational needs identified at this time. Instructional Aids Used: Anatomical Model/Drawing Cardiac Rehabilitation Brochure Signature: Vivian Clements, ACSM-EP-C Pager: [phone] Date: December 02, 2017 Time: 10:22 AM PROGRESS Observed: 12/02/2017 Status: COMPLETED Source: [facility] 10:04 AM [facility] OTHER CAMPUS REPOSITORY HNO ID: [id number] Author: Cecilia Lei) CARMEL Hoskins Service: Pulmonary Disease Author Type: Nurse Practitioner Type: Progress Notes Filed: 12/02/2017 11:27 AM Note Text: Attestation signed by Magno Khan at 12/02/2017 11:29 AM [facility] STAFF PHYSICIAN NOTE OF PERSONAL INVOLVEMENT IN CARE I have reviewed the documentation by the SHIVA and I personally participated in the ibrahim components while on 4200. I have discussed the case and management of the patient's care. The following comments revise or confirm relevant ibrahim components of the note. Data reviewed. cxr rotated: clear; low volumes, cvl yest; CT Stable Call prn NIPPV [facility] SIGNATURE: Magno Khan MD [facility] TIME of SERVICE: 11:28 AM PULMONARY PROGRESS NOTE [facility] DATE: December 02, 2017 SERVICE TIME: 10:04 AM Subjective Patient states I am better than yesterday Patient denies shortness of breath at rest, wheezing, cough, phlegm, chest pain, fevers or chills. States had some nausea and thought from pain medications. Currently on 1 liter O2 99% SpO2. OBJECTIVE Current Facility-Administered Medications: metoprolol tartrate (short acting) 25 mg tab(s) (LOPRESSOR) 25 mg ORAL q 12 H Alison (Infrastructure Director) Trevor 25 mg at 12/02/17 0918 morphine 2 mg injection 2 mg INTRAVENOUS q 4 H PRN Alison (Infrastructure Director) Trevor 0.9% NaCl 2-10 mL 2-10 mL INTRAVENOUS q 12 H Alison (Infrastructure Director) Trevor 10 mL at 12/02/17 0919 bisacodyl 10 mg suppository (DULCOLAX) 10 mg RECTAL PRN Alison (Infrastructure Director) Trevor melatonin 3 mg tab(s) 3 mg ORAL HS PRN Alison (Infrastructure Director) Trevor polyethylene glycol 3350 17 g packet (MIRALAX, GLYCOLAX) 17 g ORAL DAILY Alison (Infrastructure Director) Trevor 17 g at 12/02/17 0918 senna-docusate 8.6-50 mg 1 tablet (SENNA-S) 1 tablet ORAL BID Alison (Infrastructure Director) Trevor 1 tablet at 12/02/17 0926 aspirin 162 mg chewable tab(s) 162 mg ORAL DAILY Alison (Infrastructure Director) Trevor 162 mg at 12/02/17 0919 prochlorperazine 5 mg injection (COMPAZINE) 5 mg INTRAVENOUS q 6 H PRN Alison (Infrastructure Director) Trevor 5 mg at 11/30/17 1459 pill splitter (patient-specific) 1 Each Miscell. (Med.Supl.;Non- Drugs) PRN Luke Lester pantoprazole DR 40 mg tab(s) (PROTONIX) 40 mg ORAL DAILY (6 AM) Alison (Infrastructure Director) Trevor 40 mg at 12/02/17 0557 dextrose 40 % 15 g 15 g ORAL PRN Alison (Infrastructure Director) Trevor Or glucagon 1 mg injection (GLUCAGEN) 1 mg INTRAMUSCULAR PRN Alison (Infrastructure Director) Trevor Or dextrose 50% in water 25 mL syringe 12.5 g INTRAVENOUS PRN Alison (Infrastructure Director) Trevor insulin lispro pen (rapid acting) (HumaLOG KWIKPEN) SUBCUTANEOUS w MEALS AND HS Alison (Infrastructure Director) Trevor 2 Units at 11/30/17 1812 clonazePAM 1 mg tab(s) (KlonoPIN) 1 mg ORAL AT BEDTIME Mouna (Pa) Issac 1 mg at 12/01/172011 atorvastatin 10 mg tab(s) (LIPITOR) 10 mg ORAL AT BEDTIME Mouna (Pa) Issac 10 mg at 12/01/172011 folic acid 1 mg tab(s) 1 mg ORAL DAILY Mouna (Pa) Issac 1 mg at 12/02/17 0918 sertraline 50 mg tab(s) (ZOLOFT) 50 mg ORAL DAILY Mouna (Pa) Issac 50 mg at 12/01/172011 levothyroxine 50 mcg tab(s) (SYNTHROID) 50 mcg ORAL DAILY Mouna (Pa) Issac 50 mcg at 12/02/17 0557 acetaminophen 650 mg tab(s) (TYLENOL) 650 mg ORAL q 6 H PRN Mouna (Pa) Issac albuterol 2.5 mg /3 mL (0.083 %) 2.5 mg (PROVENTIL) 2.5 mg INHALATION q 2 H PRN Mouna (Pa) Issac ondansetron (PF) 4 mg injection (ZOFRAN) 4 mg INTRAVENOUS q 6 H PRN Mouna (Pa) Issac 4 mg at 11/30/17 1233 oxyCODONE-acetaminophen 5-325 mg 1-2 tablet (PERCOCET) 1-2 tablet ORAL q 4 H PRN Mouna (Pa) Issac 1 tablet at 12/02/17 0557 enoxaparin 40 mg injection (LOVENOX) 40 mg SUBCUTANEOUS DAILY Mouna (Pa) Issac 40 mg at 12/02/17 0918 ipratropium-albuterol 3 mL nebulizer solution (DUONEB) 3 mL INHALATION q 4 H Heaven Benz 3 mL at 12/02/17 0750 INTAKE AND OUTPUT Intake/Output Summary (Last 24 hours) at 12/02/17 1004 Last data filed at 12/02/17 0400 Gross per 24 hour Intake 480 ml Output 267 ml Net 213 ml New Radiology Films: Chest Xray - 12/01/2017 Lungs and pleura: ?Patient is rotated to the right. ?No pneumothorax. ?Probable small left pleural effusion. ?Mild prominence of pulmonary vasculature suggesting mild pulmonary edema. ?Probable subsegmental atelectasis in the right lung base. ? Cardiomediastinal silhouette: ?Cardiac silhouette size is enlarged but unchanged. ? Other: ? ? ? IMPRESSION: ? Probable mild pulmonary edema. ?Small left pleural effusion. ?No pneumothorax. ? ? ? New Micro: NONE New Labs: BMP: Glucose (mg/dL) Date Value 12/02/2017 119 Potassium (mEq/L) Date Value 12/02/2017 4.5 Sodium (mEq/L) Date Value 12/02/2017 135 Chloride (mEq/L) Date Value 12/02/2017 103 CO2 (mEq/L) Date Value 12/02/2017 25 Creatinine (mg/dL) Date Value 12/02/2017 1.21 BUN (mg/dL) Date Value 12/02/2017 36 Anion Gap (no units) Date Value 12/02/2017 12 Calcium (mg/dL) Date Value 12/02/2017 8.2 CBC: Hemoglobin (g/dL) Date Value 11/26/2008 13.2 06/07/2002 12.8 04/26/2002 13.6 HGB (g/dL) Date Value 12/02/2017 9.1 12/01/2017 8.2 11/30/2017 8.3 Hematocrit (%) Date Value 12/02/2017 27.3 12/01/2017 24.8 11/30/2017 25.4 WBC (thou/cmm) Date Value 12/02/2017 10.54 12/01/2017 11.19 11/30/2017 8.40 Vital Signs 12/02/17 0430 12/02/17 0750 12/02/17 0908 12/02/17 0914 BP: (!) 124/42 Pulse: 70 65 69 Resp: 18 16 18 Temp: 36.7 ?C (98.1 ?F) TempSrc: Oral SpO2: 99% 100% Weight: 109.6 kg (241 lb 10 oz) Height: PHYSICAL EXAM: GENERAL: AAOx3, pleasant, resting up in bedside recliner, NAD RESPIRATORY: CTAB. Respirations are even AND unlabored at rest. No wheezing, accessory muscle use, pursed lip breathing or conversational dyspnea. Patient is on 1 liter O2 SpO2 99% CARDIOVASCULAR: Normal S1S2, RRR. Bilateral LE edema +1-2 patient states improved. GI: Obese, Abdomen soft, nondistended, nontender, bowel sounds present x4 EXTREMITIES: No clubbing or cyanosis Moves all extremities equal x 4 ? Assessment and Plan: ? 1) Anticipated Respiratory insuffiencey s/p AVR surgery 2/2 #3, #4: Stable on 1 liter O2 SpO2 99%, wean to room air , will need ambulatory SpO2 prior to d/c. Increase OOB. 2) Aortic Stenosis s/p AVR POD#4: Cardiovascular following 3) Severe JANNETH/OHS : patient compliant on BIPAP 4) Morbid Obesity: 5) MMP per primary 6) D/C Planning:stable from pulmonary standpoint will sign off call with questions or concerns. SIGNATURE: Cecilia Hoskins CNP PATIENT NAME: Graciela Brito DATE: December 02, 2017 TIME: 10:04 AM PAGER/CONTACT #: [phone] GLUCOSE METER Collected: 12/02/2017 Status: F Source: [facility] 7:59 AM HEALTH SYSTEM REPOSITORY TYPE CODE TESTS RESULT OUT OF REFERENCE UNITS RANGE LAB GLUBL(LOINC 70-99 mg/dL ) High Glucose Meter 119 Result Comment: RN NOTIFIED Performed By: #### GLMET #### [place] [address] HEMOGRAM Collected: 12/02/2017 Status: F Source: [facility] 4:00 AM HEALTH SYSTEM REPOSITORY TYPE CODE TESTS RESULT OUT OF REFERENCE UNITS RANGE LAB WBC(LOINC) 3.98-10.04 thou/cmm High WBC 10.54 LAB RBC(LOINC) 3.93-5.22 mil/cmm Low RBC 2.94 LAB HGB(LOINC) 11.2-15.7 g/dL Low Hgb 9.1 LAB HCT(LOINC) 34.1-44.9 % Low Hct 27.3 LAB MCV(LOINC) 79.4-94.8 fl MCV 92.9 LAB MCH(LOINC) 25.6-32.2 pg MCH 31.0 LAB MCHC(LOINC) 31.6-34.8 % MCHC 33.3 LAB RDW(LOINC) 11.7-14.4 % High RDW 14.8 LAB RDWSD(LOINC 36.4-46.3 fl ) High RDW SD 50.8 LAB PLT(LOINC) 182-369 thou/cmm Low Platelet 129 LAB MPV(LOINC) 9.4-12.3 fl MPV 10.9 Performed By: #### CBC1 #### [place] [address] BASIC PANEL Collected: 12/02/2017 Status: F Source: [facility] 4:00 AM HEALTH SYSTEM REPOSITORY TYPE CODE TESTS RESULT OUT OF REFERENCE UNITS RANGE LAB NA(LOINC) 136-145 mEq/L Low Sodium Blood 135 LAB K(LOINC) 3.5-5.1 mEq/L Potassium Blood 4.5 LAB CL(LOINC) 98-107 mEq/L Chloride Blood 103 LAB CO2(LOINC) 21-32 mEq/L CO2 Blood 25 LAB GLU(LOINC) 70-99 mg/dL Glucose High Blood 119 LAB BUN(LOINC) 7-18 mg/dL BUN High Blood 36 LAB CREA(LOINC 0.51-0.95 mg/dL ) High Creatinine Blood 1.21 LAB CA(LOINC) 8.5-10.1 mg/dL Low Calcium Blood 8.2 LAB ANGAP(LOIN 8-16 C) Anion Gap 12 Performed By: #### P8 #### [place] [address] MDRD GFR Collected: 12/02/2017 Status: F Source: [facility] 4:00 HEALTH SYSTEM REPOSITORY TYPE CODE TESTS RESULT OUT OF RANGE REFERENCE UNITS LAB GFRFN(LOINC >60mL/min/1.73m ) 2 eGFR 44.41 Result Comment: If the patient is , multiply the result by 1.210. Performed By: #### GFR #### [place] [address] GLUCOSE METER Collected: 12/01/2017 Status: F Source: [facility] 9:09 PM HEALTH SYSTEM REPOSITORY TYPE CODE TESTS RESULT OUT OF REFERENCE UNITS RANGE LAB GLUBL(LOINC 70-99 mg/dL ) High Glucose Meter 138 Result Comment: RN NOTIFIED Performed By: #### GLMET #### [facility] [address] [place], [place] [address] PROGRESS Observed: 12/01/2017 Status: COMPLETED Source: [facility] 6:00 PM CLINIC OTHER CAMPUS REPOSITORY HNO ID: [id number] Author: Rachel May (Pharmacist) Service: Pharmacy Author Type: Pharmacist Type: Progress Notes Filed: 12/01/2017 6:04 PM Note Text: MEDICATION RECONCILIATION Patient Name:Fito Brito : 1950 Reconciliation: Yes Medications intentionally held at admission: calcitriol, hydrochlorothiazide, hydroxychloroquine, isosorbide mononitrate, methotrexate (every Tuesday) Additional comments: Simvastatin not filled recently- changed to atorvastatin here. Allergies: ALLERGIES Allergen Reactions - Cipro [Ciprofloxaci* Hives - Contrast Dye Hives - Humira [Adalimumab] Shortness of Breath - Lantus [Insulin Gla* Swelling 11/2017: per patient, in 2009 experienced throat swelling with Lantus. Has previously used Levemir without problems. 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 8 TABS EVERY Tuesday11/23/2017 Yes simvastatin (ZOCOR) 20 mg tablet Take 20 mg by mouth daily at bedtime. 11/27/2017 at Unknown time No clonazePAM (KLONOPIN) 1 mg tablet Take 1 mg by mouth daily at bedtime. 11/27/2017 at Unknown time Yes isosorbide mononitrate ER (IMDUR) 30 mg 24 hr tablet Take 30 mg by mouth once daily. 11/28/2017 at 0800 Yes levothyroxine (SYNTHROID) 50 mcg tablet Take 50 mcg by mouth once daily. 11/28/2017 at 0800 Yes hydroxychloroquine (PLAQUENIL) 200 mg tablet Take 400 mg by mouth once daily. 11/27/2017 at Unknown time Yes lisinopril (ZESTRIL, PRINIVIL) 40 mg tablet Take 40 mg by mouth once daily. 11/28/2017 at 0800 Yes aspirin, enteric coated (ASPIRIN, ENTERIC COATED) 81 mg EC tablet Take 81 mg by mouth once daily. 11/28/2017 at 0800 Yes folic acid 1 mg tablet Take 1 mg by mouth once daily. 11/27/2017 at Unknown time Yes hydroCHLOROthiazide (HYDRODIURIL, ESIDRIX) 25 mg tablet Take 25 mg by mouth once daily. 11/27/2017 at 0800 Yes sertraline hcl(ZOLOFT 50 MG TAB) Take one(1) tablet daily. 11/27/2017 at Unknown time Yes calcitriol (ROCALTROL) 0.25 mcg capsule Take 0.25 mcg by mouth 3 times a WEEK. 11/25/2017 RACHEL MAY, PHARMACIST December 01, 2017 6:00 PM GLUCOSE METER Collected: 12/01/2017 Status: F Source: [facility] 5:25 PM HEALTH SYSTEM REPOSITORY TYPE CODE TESTS RESULT OUT OF REFERENCE UNITS RANGE LAB GLUBL(LOINC 70-99 mg/dL ) High Glucose Meter 135 Result Comment: RN NOTIFIED Performed By: #### GLMET #### [place] [address] NURSING PROG Observed: 12/01/2017 Status: COMPLETED Source: [facility] 2:27 PM [facility] REPOSITORY HNO ID: [id number] Author: Fay (Rn) HANS Perez Service: Nursing Author Type: Registered Nurse Type: Nursing Progress Note Filed: 12/01/2017 2:28 PM Note Text: Report called to [id number], at bedside and aware of new room number GLUCOSE METER Collected: 12/01/2017 Status: F Source: [facility] 11:34 AM HEALTH SYSTEM REPOSITORY TYPE CODE TESTS RESULT OUT OF REFERENCE UNITS RANGE LAB GLUBL(LOINC 70-99 mg/dL ) High Glucose Meter 132 Result Comment: RN NOTIFIED Performed By: #### GLMET #### [place] [address] PROGRESS Observed: 12/01/2017 Status: COMPLETED Source: [facility] 10:15 AM [facility] REPOSITORY HNO ID: [id number] Author: Alison Murray Service: Cardiovascular Surgery Author Type: Nurse Practitioner Type: Progress Notes Filed: 12/01/2017 3:33 PM Note Text: CARDIOTHORACIC SURGERY POSTOP PROGRESS NOTE SERVICE DATE: 12/01/2017 SERVICE TIME: 10:15am Subjective S/P SURGERY: Procedure(s) (LRB): AVR W/ CARDIOPULMONARY BYPASS W/ PROSTHETIC OTHER THAN HOMOGRAFT/ STENTLESS TISSUE VALVE (N/A) DATE OF SURGERY: 11/28/2017 POSTOP DAY #3 LOS: 3 INTERVAL EVENTS / PERTINENT ROS: Pain controlled. Denies SOB. Denies Nausea. Had episode of afib last evening. Objective Admission Weight: 101.6 kg (224 lb) BP (!) 106/46 Pulse 66 Temp 36.2 ?C (97.2 ?F) Resp 19 Ht 144.8 cm (4' 9) Wt 110.9 kg (244 lb 7.8 oz) SpO2 96% BMI 52.91 kg/m2 Body surface area is 2.11 meters squared. Min/Max/Average Temperature AND Blood Pressure: Temp (24hrs), Av.4 ?C (97.6 ?F), Min:36.2 ?C (97.2 ?F), Max:36.8 ?C (98.2 ?F) Systolic (24hrs), Av , Min:101 , Max:149 Diastolic (24hrs), Av, Min:29, Max:94 Intake/Output Summary (Last 24 hours) at 12/01/17 1504 Last data filed at 12/01/17 1236 Gross per 24 hour Intake 1684 ml Output 1395 ml Net 289 ml TELEMETRY: normal sinus rhythm PHYSICAL EXAM: General Appearance: obese, no distress and up in chair Skin: Midsternal incision dry AND intact. Lungs: decreased breath sounds and respiratory effort: normal Heart: regular rhythm, S1, S2 normal and pacing wires present Abdomen: soft, non-tender and bowel sounds present Extremities: edema: Trace Chest tubes intact to -20 cm suction with serosanguinous output Lines, Drains, and Airways Line Central Line Quadruple Lumen 11/28/17 1200 Non-tunneled Right Neck 3 days DATA: Diagnostic tests reviewed for today's visit: CXR no pneumo, left pleural effusion Recent Labs 12/01/17 0445 11/30/17 1555 11/30/17 0454 11/29/17 1145 11/29/17 0355 11/28/17 1712 RBC 2.66* -- 2.16* 2.35* 2.59* 2.81* WBC 11.19* -- 8.40 8.77 9.29 11.12* HB 8.2* 8.3* 6.9* 7.5* 8.3* 9.0* HCT 24.8* 25.4* 21.4* 23.1* 25.8* 27.9* PLT 100* -- 89* 102* 113* 115* INR -- -- -- -- -- 1.12 APTT -- -- -- -- -- 25.1 NA 133* 133* 133* 138 141 139 K 4.3 4.1 4.4 4.0 4.3 4.5 CHLOR 103 101 102 107 110* 109* CO2 23 23 24 25 24 26 BUN 33* 30* 27* 23* 23* 26* CREAT 1.39* 1.37* 1.28* 1.01* 0.95 1.10* GLUC 125* 135* 151* 140* 96 104* CA 7.8* 8.0* 7.4* 7.6* 7.9* 7.5* MG -- -- 2.3 -- 2.8* 3.0* ANION 11 13 11 10 11 9 Recent Labs 11/29/17 1200 11/28/17 1712 11/28/17 1541 11/28/17 1515 PH 7.331* 7.357 7.408 7.430 PCO2 45.8 44.6 -- -- PO2 121.9* 76.6* 376.0* 389.0* BE -2.1 -1.1 -- -- HCO3 -- -- 26.1* 26.5* Assessment/Plan Symptomatic severe aortic stenosis s/p AVR with 21mm [facility] Trifecta, aortic root Enlargement POD#3 -dc chest tubes -c/w ASA and BB (increase to 25mg BID) -Keep quad lumen central line for IV access since poor peripheral IV access ?? Anticipated acute pulmonary insufficiency s/p CTS -Wean O2 as able. Encouraged IS and CANDDB ?? Post op Afib with RVR -Converted back to NSR. C/w metoprolol and increase dose. Anticipated vasodilation s/p CTS -Resolved ?? Volume overload -If BP stable after increasing BB, will diurese. -Wt up 9kg JANNETH -c/w CPAP at night ?? Anticipated acute blood loss anemia -s/p 1 unit PRBC -hgb 8.2 today and asymptomatic ?? Mild Thrombocytopenia -trending up. Reactive. ? DVT ppx -Lovenox and SCDs Dispo: Transfer to [facility] later today. Tests/Labs Ordered: 1. Chest X-ray 2. CBC 3. CMP SIGNATURE: Alison Murray CNP PATIENT NAME: Graciela Brito DATE: December 01, 2017 TIME: 3:04 PM PAGER/CONTACT #: [phone] [id number] THERAPY NT Observed: 12/01/2017 Status: COMPLETED Source: [facility] 9:02 AM CLINIC OTHER CAMPUS REPOSITORY HNO ID: [id number] Author: Srinivasan (Pt) Quita Service: Physical Therapy Author Type: Physical Therapist Type: Therapy (PT/OT/Speech/Resp) Filed: 12/01/2017 9:06 AM Note Text: Physical Therapy Evaluation SERVICE DATE: 12/01/2017 SERVICE TIME: 0820 to 0850 ROOM: [place] [address] Recommended Discharge Disposition: Home PT Anticipated Discharge Needs: Physical Assist at Home Physical Assist at Home for: Cleaning;Laundry;Shopping;Transportation Recommended Discharge Equipment: No equipment needs anticipated PT Recommendations to Nursing: Ambulate with device;To bathroom;In halls;Transfer to/from chair;OOB for Meals;With assist of 1 person Device: Wheeled Walker (or cardiac cart) PT 6 Clicks Score: 18 Precautions/Activity Restrictions: Sternal;Lines/Tubes/Drains;Fall Risk Precaution/Activity Restriction Comments: O2 HS ASSESSMENT : Patient presents with personal factors, comorbidities and results of the PT examination that require moderate complexity decision making. The patient requires skilled physical therapy to address multiple PT problems in order for the patient to return to a baseline functional level. Tolerated Full Session Physical Therapy Problem List: Education Deficit;Edema;Safety Deficits;Impaired Self Care;Decreased Activity Tolerance;Decreased Range Of Motion;Decreased Strength;Functional Mobility Impairment;Balance Impaired Patient /Caregiver Goals: Go Home Goals for Plan of Care: Transfer supine to/from sit with: Independent Ambulate with: Independent Distance: 150 Device: (no AD) Ambulate up and down steps with: Modified Independent Number of steps: 4 Device: Rail Rehab Potential: Good PLAN: Treatment Frequency (times per week): 5 (2-5) Current admission Treatment Interventions: Education;Self Care / Home Management;Energy Conservation Training;Strengthening;Functional Mobility Training;Balance Training;Edema Management;Pain Management Plan of Care developed with: Patient TREATMENT INTERVENTIONS: Therapy Diagnosis: Reduced mobility-other;Decreased activities of daily living (ADL);Unsteadiness on feet Interventions Provided: Evaluation;Therapeutic Activity (24117) $ Evaluation-Moderate (92735) Billed Units: 1 unit Therapeutic Activity (79918) Treatment Minutes: 12 1 unit Skilled Intervention(s): Instruction in stand to sit technique with lower extremities touching chair/bed while adherening to sternal precautions, use of pillow to splint sternum. Instruction in sit to and from stand technique while adherening to sternal precautions, use of pillow to splint sternum, and body positioning at edge of bed/chair. Education with sternal precautions per surgeon, progressive walking program after discharge, mobility safety pursed-lip breathing technique for oxygen recovery. Patient able to [id number] without assist or use of upper extremities. Total Timed Code Treatment Minutes: 12 Total Treatment Time (minutes): 26 FUNCTIONAL G CODE: PT 6 Clicks Score: 18 (12/01/17815) Mobility: Walking and Moving Around Current Status (G8978): CK (12/01/17815) Mobility: Walking and Moving Around Goal Status (G8979): CJ (12/01/17815) Based on clinical assessment and the score on the 6 Clicks Functional Assessment Tool, the G code and corresponding severity modifiers are documented above. SUBJECTIVE: Current Hospital Course: Chart reviewed; POD#3 AVR with bypass, Hx includes RA, lab values and vital signs not significant to PT session today. PAST MEDICAL HISTORY Diagnosis Date - Aortic valve disorders ? followed by PCP - Central apnea - Diabetes mellitus without mention of complication Diabetes mellitus/ RESOVED PER PATIENT - Dyspnea - History of Sjogren's disease - Hypothyroidism - Mixed hyperlipidemia Hyperlipidemia - Myalgia and myositis, unspecified - Nerve damage LEFT ARM - Obesity (BMI 30-39.9) - Rheumatoid arthritis(714.0) - Secondary pulmonary arterial hypertension (HCC) - Unspecified sleep apnea PAST SURGICAL HISTORY Procedure Laterality Date - CARDIAC CATH 10/26/2017 [facility] - DELIVERY ONLY 1970 , low cervical - REMOVAL GALLBLADDER 1971 Cholecystectomy - REMOVAL OF TONSILS,<12 Y/O 1976 Tonsillectomy - REVISE MEDIAN N/CARPAL TUNNEL SURG Bilateral 90'S Carpal tunnel decomp - TOTAL ABDOM HYSTERECTOMY 1975 Hysterectomy, DIANDRA - TOTAL KNEE REPLACEMENT Right 2003 Knee replacement, total Patient Report: Identification verified x2, patient agreeable to therapy. Reports fall last June where she tripped over dog line and dislocated bilateral shoulders and had 2 months outpatient PT. Home Environment Patient Lives With: Significant Other Assistance Available: 24 Hour Entry To Home: Stairs;With Rail Number Of Stairs Into Home: 2 Number Of Stairs To Bed/Bath: 0 Tub/Shower Type: tub shower Laundry: does Equipment Owned: Cane;Wheeled Walker Prior Functional Level: Within Functional Limits;Required Assistance Assistance Required With: Laundry Prior Functional Level Comments: ambulated without AD; drives; does not drive OBJECTIVE: Range Of Motion: Within Functional Limits Except Location ROM Not WFL: Shoulder Left Shoulder ROM: decreased 2/2 sternal precautions Right Shoulder ROM: decreased 2/2 sternal precautions Strength: Within Functional Limits Except Location Strength Not WFL: Shoulder Elevation Left Shoulder Elevation Strength: decreased 2/2 sternal precautions Right Shoulder Elevation Strength: decreased 2/2 sternal precautions CURRENT FUNCTIONAL STATUS: Current Functional Mobility Assist Level Additional Information Rolling Supine to Sit Sit to Supine Scooting Sit to Stand Stand By Assistance Stand to Sit Stand By Assistance Bed to Chair Toilet/Commode Gait Stand By Assistance Gait Device: (cardiac cart) Gait Distance (feet): 85 x3 (with standing rest breaks between bouts) Stairs Curb Step Car Transfer General Gait Deviations: Mirna decreased;Step length decreased;Wide base of support;Non-functional gait speed (mild lateral sway) Balance: Static Standing Static Standing Balance: Supervision Activity Tolerance: Standing Activity Standing Activity: static + ambulation Standing Activity Tolerance (in minutes): 7 (with standing rest breaks) Patient set up in chair with call light and phone in reach on bedside table. Advised to use call light and wait for assist to get back to bed. Please see discipline specific clinical documentation flowsheet for complete details for this therapy evaluation/treatment. SIGNATURE: Srinivasan Devlin PT PATIENT NAME: Graciela Brito DATE: December 01, 2017 TIME: 9:02 AM PAGER/CONTACT #: [phone] GLUCOSE METER Collected: 12/01/2017 Status: F Source: [facility] 7:08 AM HEALTH SYSTEM REPOSITORY TYPE CODE TESTS RESULT OUT OF REFERENCE UNITS RANGE LAB GLUBL(LOINC 70-99 mg/dL ) High Glucose Meter 139 Performed By: #### GLMET #### [facility] [address] [place] [address] CHEST 1 VIEW Observed: 12/01/2017 Status: F Source: [facility] 6:19 AM HEALTH SYSTEM REPOSITORY Performed at [facility] APPROVED BY: Winston Stephens MD EXAMINATION: CHEST RADIOGRAPH (SINGLE VIEW AP PORTABLE) Clinical History: Status post aortic valve replacement. M: [id number]_4 Comparison: AP chest 11/30/2017 06:05. RESULT: Lines, tubes, and devices: Right internal jugular central venous catheter, right chest tube, and median sternotomy wires appear stable. Lungs and pleura: Patient is rotated to the right. No pneumothorax. Probable small left pleural effusion. Mild prominence of pulmonary vasculature suggesting mild pulmonary edema. Probable subsegme ntal atelectasis in the right lung base. Cardiomediastinal silhouette: Cardiac silhouette size is enlarged but unchanged. Other: IMPRESSION: Probable mild pulmonary edema. Small left pleural effusion. No pneumothorax. HEMOGRAM Collected: 12/01/2017 Status: F Source: [facility] 4:45 AM HEALTH SYSTEM REPOSITORY TYPE CODE TESTS RESULT OUT OF REFERENCE UNITS RANGE LAB WBC(LOINC) 3.98-10.04 thou/cmm High WBC 11.19 LAB RBC(LOINC) 3.93-5.22 mil/cmm Low RBC 2.66 LAB HGB(LOINC) 11.2-15.7 g/dL Low Hgb 8.2 LAB HCT(LOINC) 34.1-44.9 % Low Hct 24.8 LAB MCV(LOINC) 79.4-94.8 fl MCV 93.2 LAB MCH(LOINC) 25.6-32.2 pg MCH 30.8 LAB MCHC(LOINC) 31.6-34.8 % MCHC 33.1 LAB RDW(LOINC) 11.7-14.4 % High RDW 15.9 LAB RDWSD(LOINC 36.4-46.3 fl ) High RDW SD 54.4 LAB PLT(LOINC) 182-369 thou/cmm Low Platelet 100 LAB MPV(LOINC) 9.4-12.3 fl MPV 10.7 Performed By: #### CBC1 #### [place] [address] BASIC PANEL Collected: 12/01/2017 Status: F Source: [facility] 4:45 AM HEALTH SYSTEM REPOSITORY TYPE CODE TESTS RESULT OUT OF REFERENCE UNITS RANGE LAB NA(LOINC) 136-145 mEq/L Low Sodium Blood 133 LAB K(LOINC) 3.5-5.1 mEq/L Potassium Blood 4.3 LAB CL(LOINC) 98-107 mEq/L Chloride Blood 103 LAB CO2(LOINC) 21-32 mEq/L CO2 Blood 23 LAB GLU(LOINC) 70-99 mg/dL Glucose High Blood 125 LAB BUN(LOINC) 7-18 mg/dL BUN High Blood 33 LAB CREA(LOINC 0.51-0.95 mg/dL ) High Creatinine Blood 1.39 LAB CA(LOINC) 8.5-10.1 mg/dL Low Calcium Blood 7.8 LAB ANGAP(LOIN 8-16 C) Anion Gap 11 Performed By: #### P8 #### [place] [address] MDRD GFR Collected: 12/01/2017 Status: F Source: [facility] 4:45 AM HEALTH SYSTEM REPOSITORY TYPE CODE TESTS RESULT OUT OF RANGE REFERENCE UNITS LAB GFRFN(LOINC >60mL/min/1.73m ) 2 eGFR 37.84 Result Comment: If the patient is , multiply the result by 1.210. Performed By: #### GFR #### [place] [address] GLUCOSE METER Collected: 11/30/2017 Status: F Source: [facility] 9:44 PM HEALTH SYSTEM REPOSITORY TYPE CODE TESTS RESULT OUT OF REFERENCE UNITS RANGE LAB GLUBL(LOINC 70-99 mg/dL ) High Glucose Meter 134 Result Comment: RN NOTIFIED Performed By: #### GLMET #### [facility] [address] [place] [address] GLUCOSE METER Collected: 11/30/2017 Status: F Source: [facility] 4:37 PM HEALTH SYSTEM REPOSITORY TYPE CODE TESTS RESULT OUT OF REFERENCE UNITS RANGE LAB GLUBL(LOINC 70-99 mg/dL ) High Glucose Meter 153 Result Comment: RN NOTIFIED Performed By: #### GLMET #### [facility] [address] [place] [address] HGB Collected: 11/30/2017 Status: F Source: [facility] 3:55 PM HEALTH SYSTEM REPOSITORY TYPE CODE TESTS RESULT OUT OF RANGE REFERENCE UNITS LAB HGBI(LOINC) 11.2-15.7 g/dL Low Hgb 8.3 Performed By: #### HGBI #### [place] [address] HCT Collected: 11/30/2017 Status: F Source: [facility] 3:55 PM HEALTH SYSTEM REPOSITORY TYPE CODE TESTS RESULT OUT OF RANGE REFERENCE UNITS LAB HCTI(LOINC) 34.1-44.9 % Low Hct 25.4 Performed By: #### HCTI #### [place] [address] BASIC PANEL Collected: 11/30/2017 Status: F Source: [facility] 3:55 PM HEALTH SYSTEM REPOSITORY TYPE CODE TESTS RESULT OUT OF REFERENCE UNITS RANGE LAB NA(LOINC) 136-145 mEq/L Low Sodium Blood 133 LAB K(LOINC) 3.5-5.1 mEq/L Potassium Blood 4.1 LAB CL(LOINC) 98-107 mEq/L Chloride Blood 101 LAB CO2(LOINC) 21-32 mEq/L CO2 Blood 23 LAB GLU(LOINC) 70-99 mg/dL Glucose High Blood 135 LAB BUN(LOINC) 7-18 mg/dL BUN High Blood 30 LAB CREA(LOINC 0.51-0.95 mg/dL ) High Creatinine Blood 1.37 LAB CA(LOINC) 8.5-10.1 mg/dL Low Calcium Blood 8.0 LAB ANGAP(LOIN 8-16 C) Anion Gap 13 Performed By: #### P8 #### [place] [address] MDRD GFR Collected: 11/30/2017 Status: F Source: [facility] 3:55 PM HEALTH SYSTEM REPOSITORY TYPE CODE TESTS RESULT OUT OF RANGE REFERENCE UNITS LAB GFRFN(LOINC >60mL/min/1.73m ) 2 eGFR 38.48 Result Comment: If the patient is , multiply the result by 1.210. Performed By: #### GFR #### [facility] [address] [place], [place] [address] GLUCOSE METER Collected: 11/30/2017 Status: F Source: [facility] 11:17 AM HEALTH SYSTEM REPOSITORY TYPE CODE TESTS RESULT OUT OF REFERENCE UNITS RANGE LAB GLUBL(LOINC 70-99 mg/dL ) High Glucose Meter 160 Result Comment: RN NOTIFIED Performed By: #### GLMET #### [facility] [address] [place] [address] PROGRESS Observed: 11/30/2017 Status: COMPLETED Source: [facility] 9:30 AM CLINIC OTHER CAMPUS REPOSITORY HNO ID: [id number] Author: Alison Murray Service: Cardiovascular Surgery Author Type: Nurse Practitioner Type: Progress Notes Filed: 11/30/2017 3:12 PM Note Text: CARDIOTHORACIC SURGERY POSTOP PROGRESS NOTE SERVICE DATE: 11/30/2017 SERVICE TIME: 09:30am Subjective S/P SURGERY: Procedure(s) (LRB): AVR W/ CARDIOPULMONARY BYPASS W/ PROSTHETIC OTHER THAN HOMOGRAFT/ STENTLESS TISSUE VALVE (N/A) DATE OF SURGERY: 11/28/2017 POSTOP DAY #2 LOS: 2 INTERVAL EVENTS / PERTINENT ROS: Pain controlled. Denies SOB. C/o nausea ant with standing. Pacemaker off. Back on Vaso overnight.. Objective Admission Weight: 101.6 kg (224 lb) BP (!) 97/22 Pulse 73 Temp 36 ?C (96.8 ?F) Resp 18 Ht 144.8 cm (4' 9) Wt 108.2 kg (238 lb 8.6 oz) SpO2 95% BMI 51.62 kg/m2 Body surface area is 2.09 meters squared. Min/Max/Average Temperature AND Blood Pressure: Temp (24hrs), Av.2 ?C (97.2 ?F), Min:36 ?C (96.8 ?F), Max:36.9 ?C (98.4 ?F) Systolic (24hrs), Av , Min:97 , Max:97 Diastolic (24hrs), Av, Min:22, Max:22 Intake/Output Summary (Last 24 hours) at 11/30/17 1501 Last data filed at 11/30/17 1445 Gross per 24 hour Intake 2860.9 ml Output 1197 ml Net 1663.9 ml TELEMETRY: normal sinus rhythm PHYSICAL EXAM: General Appearance: obese, no distress and up in chair Skin: Midsternal incision dry AND intact. Lungs: decreased breath sounds and respiratory effort: normal Heart: regular rhythm, S1, S2 normal and pacing wires present Abdomen: soft, non-tender and bowel sounds present Extremities: normal exam of the extremities Lines, Drains, and Airways Line Arterial Line 11/28/17 1120 Arterial Line Left Radial 2 days Central Line Quadruple Lumen 11/28/17 1200 Non-tunneled Right Neck 2 days Peripheral 11/28/17 1045 Left Forearm 16 Gauge 2 days Drain Chest Tube 11/28/17 1600 Midline Mediastinal 28 Fr 1 day Chest Tube 11/28/17 1600 Midline Pleural 32 Fr 1 day DATA: Diagnostic tests reviewed for today's visit: Recent Labs 11/30/17 0454 11/29/17 1145 11/29/17 0355 11/28/17 1712 RBC 2.16* 2.35* 2.59* 2.81* WBC 8.40 8.77 9.29 11.12* HB 6.9* 7.5* 8.3* 9.0* HCT 21.4* 23.1* 25.8* 27.9* PLT 89* 102* 113* 115* INR -- -- -- 1.12 APTT -- -- -- 25.1 NA 133* 138 141 139 K 4.4 4.0 4.3 4.5 CHLOR 102 107 110* 109* CO2 24 25 24 26 BUN 27* 23* 23* 26* CREAT 1.28* 1.01* 0.95 1.10* GLUC 151* 140* 96 104* CA 7.4* 7.6* 7.9* 7.5* MG 2.3 -- 2.8* 3.0* ANION 11 10 11 9 Recent Labs 11/29/17 1200 11/28/17 1712 11/28/17 1541 11/28/17 1515 11/28/17 1435 PH 7.331* 7.357 7.408 7.430 7.398 PCO2 45.8 44.6 -- -- -- PO2 121.9* 76.6* 376.0* 389.0* 345.0* BE -2.1 -1.1 -- -- -- HCO3 -- -- 26.1* 26.5* 27.9* Assessment/Plan Symptomatic severe aortic stenosis s/p AVR with 21mm [facility] Trifecta, aortic root Enlargement POD#2 -monitor chest tube output for 1 more day. Likely will dc tomorrow. -c/w ASA. No BB until off Vaso. ? Anticipated acute pulmonary insufficiency s/p CTS -Wean O2 as able. Encouraged IS and CANDDB ? Anticipated vasodilation s/p CTS -BP better now. Will dc Vaso. ? JANNETH -c/w CPAP at night ? Anticipated acute blood loss anemia -Recheck H/H and BMP this afternoon. -If hgb continues to drop or creatinine increasing, or if pt requires pressors again, will transfuse 1 unit PRBC. ? Mild Thrombocytopenia -likely reactive. Monitor. DVT ppx -Lovenox and SCDs Tests/Labs Ordered: 1. Chest X-ray 2. BMP 3. CBC SIGNATURE: Alison Murray CNP PATIENT NAME: Graciela Brito DATE: November 30, 2017 TIME: 3:01 PM PAGER/CONTACT #: [phone] [phone] THERAPY NT Observed: 11/30/2017 Status: COMPLETED Source: [facility] 8:58 AM CLINIC OTHER CAMPUS REPOSITORY HNO ID: [id number] Author: Yohana Erazo/Bryce Marie Service: Occupational Therapy Author Type: Occupational Therapist Type: Therapy (PT/OT/Speech/Resp) Filed: 11/30/2017 8:58 AM Note Text: OCCUPATIONAL THERAPY MISSED VISIT SERVICE DATE: 11/30/2017 SERVICE TIME: 0857 to 0857 ROOM: [place] [address] Attempted Evaluation. Patient not seen due to (Hgb trending down 8.3-> 7.5 -> 6.9 await possible transfusion). SIGNATURE: YEE Reynolds/Umberto PATIENT NAME: Graciela Brito DATE: November 30, 2017 TIME: 8:58 AM PAGER/CONTACT #: THERAPY NT Observed: 11/30/2017 Status: COMPLETED Source: [facility] 8:35 AM CLINIC OTHER CAMPUS REPOSITORY HNO ID: [id number] Author: Srinivasan (Pt) Quita Service: Physical Therapy Author Type: Physical Therapist Type: Therapy (PT/OT/Speech/Resp) Filed: 11/30/2017 8:35 AM Note Text: PHYSICAL THERAPY MISSED VISIT SERVICE DATE: 11/30/2017 SERVICE TIME: 826 to 830 ROOM: [place] [address] Attempted Evaluation. Patient not seen due to Other: See Comment (low HgB: 6.9, hold for resolution. Will attempt later.). SIGNATURE: Srinivasan Devlin PT PATIENT NAME: Graciela Brito DATE: November 30, 2017 TIME: 8:35 AM PAGER/CONTACT #: GLUCOSE METER Collected: 11/30/2017 Status: F Source: [facility] 7:44 AM HEALTH SYSTEM REPOSITORY TYPE CODE TESTS RESULT OUT OF REFERENCE UNITS RANGE LAB GLUBL(LOINC 70-99 mg/dL ) High Glucose Meter 146 Result Comment: RN NOTIFIED Performed By: #### GLMET #### [place] [address] CHEST 1 VIEW Observed: 11/30/2017 Status: F Source: [facility] 6:20 AM HEALTH SYSTEM REPOSITORY Performed at [facility] APPROVED BY: [place] MD EXAMINATION: CHEST RADIOGRAPH (PORTABLE SINGLE VIEW AP) Exam Date/Time: 11/30/2017 6:20 AM Clinical History: Status post aortic valve replacement and aortoplasty. M: XCP_3 Comparison: 1 day prior RESULT: See impression. IMPRESSION: Limitations: Limited inspiration/low lung volumes. Lines, tubes, and devices: Unchanged. Lungs and pleura: No visualized pneumothorax, infiltrate or sizable pleural effusion. Cardiomediastinal silhouette: Remains stable. Other: Visualized osseous structures are unchanged. BASIC PANEL Collected: 11/30/2017 Status: F Source: [facility] 4:54 AM HEALTH SYSTEM REPOSITORY TYPE CODE TESTS RESULT OUT OF REFERENCE UNITS RANGE LAB NA(LOINC) 136-145 mEq/L Low Sodium Blood 133 LAB K(LOINC) 3.5-5.1 mEq/L Potassium Blood 4.4 LAB CL(LOINC) 98-107 mEq/L Chloride Blood 102 LAB CO2(LOINC) 21-32 mEq/L CO2 Blood 24 LAB GLU(LOINC) 70-99 mg/dL Glucose High Blood 151 LAB BUN(LOINC) 7-18 mg/dL BUN High Blood 27 LAB CREA(LOINC 0.51-0.95 mg/dL ) High Creatinine Blood 1.28 LAB CA(LOINC) 8.5-10.1 mg/dL Low Calcium Blood 7.4 LAB ANGAP(LOIN 8-16 C) Anion Gap 11 Performed By: #### P8 #### [facility] [address] [place] [address] MAGNESIUM BLOOD Collected: 11/30/2017 Status: F Source: [facility] 4:54 AM HEALTH SYSTEM REPOSITORY TYPE CODE TESTS RESULT OUT OF REFERENCE UNITS RANGE LAB MAG(LOINC) 1.6-2.6 mg/dL Magnesium Blood 2.3 Performed By: #### MAG #### [facility] [address] [place] [address] MDRD GFR Collected: 11/30/2017 Status: F Source: [facility] 4:54 AM HEALTH SYSTEM REPOSITORY TYPE CODE TESTS RESULT OUT OF RANGE REFERENCE UNITS LAB GFRFN(LOINC >60mL/min/1.73m ) 2 eGFR 41.62 Result Comment: If the patient is , multiply the result by 1.210. Performed By: #### GFR #### [facility] [address] [place] [address] HEMOGRAM Collected: 11/30/2017 Status: F Source: [facility] 4:54 HEALTH SYSTEM REPOSITORY TYPE CODE TESTS RESULT OUT OF REFERENCE UNITS RANGE LAB WBC(LOINC) 3.98-10.04 thou/cmm WBC 8.40 LAB RBC(LOINC) 3.93-5.22 mil/cmm Low RBC 2.16 LAB HGB(LOINC) 11.2-15.7 g/dL Low alert Hgb 6.9 LAB HCT(LOINC) 34.1-44.9 % Low Hct 21.4 LAB MCV(LOINC) 79.4-94.8 fl High MCV 99.1 LAB MCH(LOINC) 25.6-32.2 pg MCH 31.9 LAB MCHC(LOINC) 31.6-34.8 % MCHC 32.2 LAB RDW(LOINC) 11.7-14.4 % RDW 13.2 LAB RDWSD(LOINC 36.4-46.3 fl ) High RDW SD 47.6 LAB PLT(LOINC) 182-369 thou/cmm Low Platelet 89 LAB MPV(LOINC) 9.4-12.3 fl MPV 10.1 Performed By: #### CBC1 #### [facility] [address] [place] [id number] GLUCOSE METER Collected: 11/29/2017 Status: F Source: [facility] 9:53 PM HEALTH SYSTEM REPOSITORY TYPE CODE TESTS RESULT OUT OF REFERENCE UNITS RANGE LAB GLUBL(LOINC 70-99 mg/dL ) High Glucose Meter 192 Result Comment: RN NOTIFIED Performed By: #### GLMET #### [facility] [address] [place], [place] [address] PROGRESS Observed: 11/29/2017 Status: COMPLETED Source: [facility] 5:25 PM CLINIC OTHER CAMPUS REPOSITORY HNO ID: [id number] Author: Heaven Benz Service: Critical Care Author Type: Physician Type: Progress Notes Filed: 11/29/2017 5:43 PM Note Text: MICU - PROGRESS NOTE SERVICE DATE: 11/29/2017 SERVICE TIME: 5:33 PM Admission Date: 11/28/2017 AGE: [age] year old LOS: 1 days Subjective REASON FOR ICU ADMISSION: JANNETH, S/P Surgery and aortic valve replacement. Extubated. Now on 2l/min with SaO2 97%. No complaints. Eating dinner. Requiring 0.04units/min Vasopressin for low BP Objective VITAL SIGNS (last 24hrs min/max): Temp Av.2 ?C (99 ?F) Min: 36.6 ?C (97.9 ?F) Max: 37.8 ?C (100 ?F) Pulse Av.2 Min: 70 Max: 88 Arterial BP 1 Min: 87/40 Max: 168/84 Cuff BP Min: 75/47 Max: 89/41 Pain Score: 3/10 Vital signs reviewed. BP 79/43 Pulse 88 Temp (Src) 97.9 (Grewal Thermistor) Resp 18 Ht 4' 9 (1.45m) Wt 235 lb 0.2 oz (106.6kg) SpO2 98% BMI 50.84 kg/(m2). Temp (24hrs), Av.2 ?C (99 ?F), Min:36.6 ?C (97.9 ?F), Max:37.8 ?C (100 ?F) NET FLUID BALANCE Intake/Output Summary (Last 24 hours) at 11/29/17 1733 Last data filed at 11/29/17 1600 Gross per 24 hour Intake 6104.8 ml Output 2579 ml Net 3525.8 ml MEDICATIONS Current Facility-Administered Medications: vasopressin 20 Units in D5W 100 mL (VASOSTRICT) 0.04 Units/min INTRAVENOUS CONTINUOUS dextrose 40 % 15 g 15 g ORAL PRN Or glucagon 1 mg injection (GLUCAGEN) 1 mg INTRAMUSCULAR PRN Or dextrose 50% in water 25 mL syringe 12.5 g INTRAVENOUS PRN insulin lispro pen (rapid acting) (HumaLOG KWIKPEN) SUBCUTANEOUS w MEALS AND HS PHENYLephrine 10 mg in D5W 250 mL (NEOSYNEPHRINE) 25-100 mcg/min INTRAVENOUS CONTINUOUS clonazePAM 1 mg tab(s) (KlonoPIN) 1 mg ORAL AT BEDTIME atorvastatin 10 mg tab(s) (LIPITOR) 10 mg ORAL AT BEDTIME folic acid 1 mg tab(s) 1 mg ORAL DAILY sertraline 50 mg tab(s) (ZOLOFT) 50 mg ORAL DAILY levothyroxine 50 mcg tab(s) (SYNTHROID) 50 mcg ORAL DAILY insulin regular human iv bolus 10 Units 10 Units INTRAVENOUS PRN dexmedetomidine 400 mcg in NaCl 0.9% 100 mL (PRECEDEX) 0.2- 0.7 mcg/kg/hr INTRAVENOUS CONTINUOUS aspirin 81 mg chewable tab(s) 81 mg ORAL DAILY potassium chloride iv piggyback 20 mEq in sterile water 100 mL 20 mEq INTRAVENOUS PRN magnesium sulfate in water 2 g in sterile water 50 ml 2 g INTRAVENOUS PRN(NO DISPENSE) acetaminophen 650 mg tab(s) (TYLENOL) 650 mg ORAL q 6 H PRN NaCl 0.9% iv infusion 50 mL/hr INTRAVENOUS CONTINUOUS albuterol 2.5 mg /3 mL (0.083 %) 2.5 mg (PROVENTIL) 2.5 mg INHALATION q 2 H PRN ceFAZolin iv piggyback 2 g in D5W (iso-osmotic) 100 mL (ANCEF) 2 g INTRAVENOUS q 6 HR ondansetron (PF) 4 mg injection (ZOFRAN) 4 mg INTRAVENOUS q 6 H PRN oxyCODONE-acetaminophen 5-325 mg 1-2 tablet (PERCOCET) 1-2 tablet ORAL q 4 H PRN morphine 2-4 mg injection 2-4 mg INTRAVENOUS q 1 H PRN enoxaparin 40 mg injection (LOVENOX) 40 mg SUBCUTANEOUS DAILY vancomycin iv piggyback 1 g in D5W 200 mL (VANCOCIN) 1 g INTRAVENOUS q 12 HR nitroglycerin 50 mg in D5W 250 mL 5-200 mcg/min INTRAVENOUS CONTINUOUS ipratropium-albuterol 3 mL nebulizer solution (DUONEB) 3 mL INHALATION q 4 H Lines, Drains, and Airways Line Arterial Line 11/28/17 1120 Arterial Line Left Radial 1 day Central Line Quadruple Lumen 11/28/17 1200 Non-tunneled Right Neck 1 day Peripheral 11/28/17 1045 Left Forearm 16 Gauge 1 day Drain Chest Tube 11/28/17 1600 Midline Mediastinal 28 Fr 1 day Chest Tube 11/28/17 1600 Midline Mediastinal 32 Fr 1 day Indwelling Urinary Catheter 11/28/17 1200 Temperature Monitoring 16 Fr 1 day PHYSICAL EXAM PERFORMED: HEENT: Oral Mucosa: Moist mucous membranes Feeding Tube: No Eyes: PERRLA Neck: Unremarkable; No adenopathy or JVD Cardiovascular: Regular rhythm and paced. Respiratory: Clear to auscultation and decreased in the bases. Abdomen: Soft, Nontender, Positive bowel sounds and obese. Extremities: Edema- No Peripheral Pulses- Present all extremities Capillary Refill- less than 3 seconds Skin: Abnormalities- No Neurologic: Awake, oriented, Alert, Follows commands and Moving all extremities Respiratory/Nursing Documentation: O2 Therapy: Room Air (11/29/17 1600) Invasive Ventilator Mode: Synchronized Intermittent Mandatory Ventilation;Pressure Control Ventilation (11/28/171947) Set Ventilator Respiratory Rate (BPM): 6 (11/28/171947) Total Respiratory Rate (BPM): 14 (11/28/171947) Tidal Volume Set (mL): 450 (11/28/171899) Exhaled Tidal Volume (mL): 417 (11/28/171947) Minute Volume (L): 6.3 (11/28/17 1730) Peak Inspiratory Pressure (cm H2O): 15 (11/28/171947) PEEP/CPAP (cm H2O): 5 (11/28/171947) HEMODYNAMIC DATA: NUTRITION: Enteral Feeds: Yes Cardiac diet. DATA: Diagnostic tests reviewed for today's visit: Most recent labs and imaging results. LABS: Recent Labs 11/29/17 1145 11/29/17 0355 11/28/17 1712 WBC 8.77 9.29 11.12* RBC 2.35* 2.59* 2.81* HB 7.5* 8.3* 9.0* HCT 23.1* 25.8* 27.9* MCV 98.3* 99.6* 99.3* PLT 102* 113* 115* GLUC 140* 96 104* BUN 23* 23* 26* CREAT 1.01* 0.95 1.10* NA 138 141 139 K 4.0 4.3 4.5 CHLOR 107 110* 109* CO2 25 24 26 CA 7.6* 7.9* 7.5* PTSEC -- -- 11.7 APTT -- -- 25.1 INR -- -- 1.12 MG -- 2.8* 3.0* ABG: Recent Labs 11/29/17 1200 11/28/17 1712 11/28/17 1541 PH 7.331* 7.357 7.408 PO2 121.9* 76.6* 376.0* PCO2 45.8 44.6 -- CULTURES: N/A CXR FINDINGS: 11/29: IMPRESSION: ? Recent removal of some support lines. ?Stable appearance of heart and lungs. Assessment/Plan PROBLEMS: ACTIVE PROBLEM LIST Aortic Valve Stenosis Obesity, Class III, BMI >= 40 E66.01 1. POD#1 AoValve replacement due to severe aortic stenosis. 2. Severe JANNETH/CSA on BiPAP-ST by patient report and compliant. 3. Mild post-op hypotension. 4. Severe anemia--Hgb 7.5gm 5. Morbid obesity. Not notable chronic hypercapnea. PLANS FOR TODAY: CRITICAL CARE PLAN: Bronchodilators , CPAP/BIPAP and Vasopressors Home BiPAP unit her at HS and PRN. Vasopressors per Dr. Lester O2 as needed. Incentive Spirometer This patient has a high probability of sudden, clinically significant deterioration, which requires the highest level of physician preparedness to intervene urgently. I managed/supervised life or organ supporting interventions that required frequent physician assessment. I devoted my full attention to the direct care of this patient for the amount of time indicated below. Time I spent with family or surrogate(s) is included only if the patient was incapable of providing the necessary information or participating in medical decision making. Time devoted to teaching is not included. Patient Updated Yes Family Updated No Discussed with Staff Yes Time spent providing critical care services: 30 minutes excluding procedures. SIGNATURE: Heaven Benz MD PATIENT NAME: Graciela Brito DATE: November 29, 2017 TIME: 5:33 PM PAGER/CONTACT #: [phone] GLUCOSE METER Collected: 11/29/2017 Status: F Source: [facility] 4:46 PM HEALTH SYSTEM REPOSITORY TYPE CODE TESTS RESULT OUT OF REFERENCE UNITS RANGE LAB GLUBL(LOINC 70-99 mg/dL ) High Glucose Meter 195 Result Comment: RN NOTIFIED Performed By: #### GLMET #### [place] [address] THERAPY NT Observed: 11/29/2017 Status: COMPLETED Source: [facility] 4:44 PM [facility] OTHER CAMPUS REPOSITORY HNO ID: [id number] Author: Srinivasan (Pt) Quita Service: Physical Therapy Author Type: Physical Therapist Type: Therapy (PT/OT/Speech/Resp) Filed: 11/29/2017 4:47 PM Note Text: PHYSICAL THERAPY MISSED VISIT SERVICE DATE: 11/29/2017 SERVICE TIME: 1632 to 1634 ROOM: [place] [address] Attempted Evaluation. Patient not seen due to per nurse: BP remains low/unstable, patient nauseated. Will attempt tomorrow morning. 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 SERVICE DATE: 11/29/2017 SERVICE TIME: 1:05 PM Referral: Home Care referral received by: EVAN Will continue to follow for physician orders SIGNATURE: Tessy Martin RN PATIENT NAME: Graciela Brito DATE: November 29, 2017 TIME: 1:05 PM CASE MGT INIT Observed: 11/29/2017 Status: COMPLETED Source: [facility] 12:50 PM CLINIC OTHER CAMPUS REPOSITORY HNO ID: [id number] Author: Samantha GonzalezRn) HANS Hui Service: (none) Author Type: Registered Nurse Type: Care Mgt Initial Assessment Filed: 11/29/2017 12:55 PM Note Text: CARE MANAGEMENT: ASSESSMENT AND DISCHARGE PLAN SERVICE DATE: 11/29/2017 SERVICE TIME: 12:50 PM PRIMARY CARE PHYSICIAN: Bird Garza MD ADMISSION STATUS: Inpatient Needs Prior to Discharge: Home Care Order;OT/PT Evaluation 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 No Health Literacy: 1. How often do you need to have someone help you when you read instructions, pamphlets, or other written material from your doctor or pharmacy? Never - 1 2. How confident are you filling out medical forms by yourself? Extremely - 1 If Patient scores > 3 on either question, the following interventions were put into place: Patient did not score > 3 FUNCTIONAL AND COGNITIVE/BEHAVIORAL PRIOR TO ADMISSION: Baseline Mental Status: Alert AND Oriented, Person, Place , Time and Situation Functional Status: Independent Does Patient Currently Receive Any Community Services or Home Care? None Equipment Prior to Admission: Bi-level Positive Airway Pressure/Continuous Positive Airway Pressure Has the Patient Been in a Retirement Facility in the Past 30 days? No SOCIAL: Living Arrangement: Home, one story with 2 entry steps Lives With: Spouse Financial Resources: Retired Primary Contact: Extended Emergency Contact Information Primary Emergency Contact: LORI BRITO Relation: Spouse Secondary Emergency Contact: ErikaYamilet Relation: Daughter Supportive: Yes Other Important Patient Contacts: None Caregiver Assessment: Caregiver is ready, willing and able to meet the patient's needs as recommended by the inter-professional team? Yes Patient's transition needs and plan for meeting these needs: post op recovery Does the patient have an acute stroke diagnosis, or has the patient had a stroke during this admission? No Medication Adherence: I am convinced of the importance of my prescription medication: Agree completely - 0 I worry that my prescription medication will do more harm than good to me Disagree completely - 0 I feel financially burdened by my [id number] expenses for my prescription medication: Disagree completely - 0 Patient is categorized as low risk < 2 Are you interested in bedside delivery of your medications? No Food Concerns: In the Last Month, Have You had Trouble Getting Food? No trouble getting food During the Last Month, Have You Worried Whether Your Food Would Run Out Before You Had Enough Money to Buy More? No Is the Patient Psychosocially Complex? No ASSESSMENT AND PLAN: Medical Needs: None Psychosocial Needs: None FREEDOM OF CHOICE EXPLAINED: Yes declines, agreeable to vns POTENTIAL TRANSITION PLANS Home Care Met with patient and spouse at bedside. Pod#1 avr. PT eval not done due to low bp today--will follow. 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 Agreeable to [facility] visits --vns consulted. SIGNATURE: Samantha Hui RN PATIENT NAME: Graciela Brito DATE: November 29, 2017 TIME: 12:50 PM PAGER/CONTACT #: [phone] BLOOD GAS ARTERIAL Collected: 11/29/2017 Status: F Source: [facility] 12:00 PM HEALTH SYSTEM REPOSITORY TYPE CODE TESTS RESULT OUT OF REFERENCE UNITS RANGE LAB FIO2(LOINC % ) FIO2 28 LAB TEMPA(LOIN C) Temperature 36.9 LAB PH(LOINC) 7.350-7.450 Low pH Arterial 7.331 LAB PCO2(LOINC 36.0-46.0 mm Hg ) PCO2 Arterial 45.8 LAB PO2(LOINC) 85.0-96.0 mm Hg PO2 High Arterial 121.9 LAB HCO3A(LOIN 22.0-26.0 mEq/L C) HCO3- 23.7 LAB O2%A(LOINC 95.0-98.0 % ) O2% Sat High Arterial 98.2 LAB BASEX(LOIN -2.5 to 2.5 mEq/L C) Base Excess -2.1 Performed By: #### ABG #### [place] [address] PROGRESS Observed: 11/29/2017 Status: COMPLETED Source: [facility] 11:51 AM CLINIC OTHER CAMPUS REPOSITORY HNO ID: [id number] Author: Alison Murray Service: Cardiovascular Surgery Author Type: Nurse Practitioner Type: Progress Notes Filed: 11/29/2017 12:56 PM Note Text: CARDIOTHORACIC SURGERY POSTOP PROGRESS NOTE SERVICE DATE: 11/29/2017 SERVICE TIME: 11:51 AM Subjective S/P SURGERY: Procedure(s) (LRB): AVR W/ CARDIOPULMONARY BYPASS W/ PROSTHETIC OTHER THAN HOMOGRAFT/ STENTLESS TISSUE VALVE (N/A) DATE OF SURGERY: 11/28/2017 POSTOP DAY #1 LOS: 1 INTERVAL EVENTS / PERTINENT ROS: Pain controlled. Denies SOB. Difficult to take a deep breath. On increased Chung. Objective Admission Weight: 101.6 kg (224 lb) BP (!) 75/47 Pulse 87 Temp 37.6 ?C (99.7 ?F) Resp 15 Ht 144.8 cm (4' 9) Wt 106.6 kg (235 lb 0.2 oz) SpO2 100% BMI 50.86 kg/m2 Body surface area is 2.07 meters squared. Min/Max/Average Temperature AND Blood Pressure: Temp (24hrs), Av.2 ?C (99 ?F), Min:36.4 ?C (97.5 ?F), Max:37.8 ?C (100 ?F) Systolic (24hrs), Av , Min:75 , Max:89 Diastolic (24hrs), Av, Min:41, Max:47 Intake/Output Summary (Last 24 hours) at 11/29/17 1151 Last data filed at 11/29/17 1100 Gross per 24 hour Intake 4582.8 ml Output 2185 ml Net 2397.8 ml Current Facility-Administered Medications: - [START ON 11/30/2017] pantoprazole DR 40 mg tab(s) (PROTONIX) - NaCl 0.9% 500 mL iv bolus - vasopressin 20 Units in D5W 100 mL (VASOSTRICT) - clonazePAM 1 mg tab(s) (KlonoPIN) - atorvastatin 10 mg tab(s) (LIPITOR) - folic acid 1 mg tab(s) - sertraline 50 mg tab(s) (ZOLOFT) - levothyroxine 50 mcg tab(s) (SYNTHROID) - insulin regular human iv bolus 10 Units - dextrose 50% in water 25 mL syringe - dexmedetomidine 400 mcg in NaCl 0.9% 100 mL (PRECEDEX) - aspirin 81 mg chewable tab(s) - potassium chloride iv piggyback 20 mEq in sterile water 100 mL - magnesium sulfate in water 2 g in sterile water 50 ml - acetaminophen 650 mg tab(s) (TYLENOL) - NaCl 0.9% iv infusion - albumin (5%) 12.5 g infusion - albuterol 2.5 mg /3 mL (0.083 %) 2.5 mg (PROVENTIL) - ceFAZolin iv piggyback 2 g in D5W (iso-osmotic) 100 mL (ANCEF) - ondansetron (PF) 4 mg injection (ZOFRAN) - oxyCODONE-acetaminophen 5-325 mg 1-2 tablet (PERCOCET) - morphine 2-4 mg injection - enoxaparin 40 mg injection (LOVENOX) - vancomycin iv piggyback 1 g in D5W 200 mL (VANCOCIN) - nitroglycerin 50 mg in D5W 250 mL - ipratropium-albuterol 3 mL nebulizer solution (DUONEB) - PHENYLephrine 10 mg in D5W 250 mL (NEOSYNEPHRINE) TELEMETRY: atrial pacing PHYSICAL EXAM: General Appearance: well developed, obese and no distress Skin: Midsternal incision dry AND intact. Lungs: decreased breath sounds and respiratory effort: normal Heart: S1, S2 normal, pacing wires present and temporary epicardial pacer on, capturing Abdomen: soft, non-tender and bowel sounds present Genitourinary: Grewal intact, urine color is clear yellow Extremities: normal exam of the extremities Chest tubes intact to -20cm suction with serosanguinous output, no air leak Lines, Drains, and Airways Line Arterial Line 11/28/17 1120 Arterial Line Left Radial 1 day Peripheral 11/28/17 1045 Left Forearm 16 Gauge 1 day Central Line Quadruple Lumen 11/28/17 1200 Non-tunneled Right Neck less than 1 day Drain Chest Tube 11/28/17 1600 Midline Mediastinal 28 Fr less than 1 day Chest Tube 11/28/17 1600 Midline Mediastinal 32 Fr less than 1 day Indwelling Urinary Catheter 11/28/17 1200 Temperature Monitoring 16 Fr less than 1 day DATA: Diagnostic tests reviewed for today's visit: Recent Labs 11/29/17 0355 11/28/17 1712 11/28/17 1541 RBC 2.59* 2.81* -- WBC 9.29 11.12* -- HB 8.3* 9.0* -- HCT 25.8* 27.9* 24* PLT 113* 115* -- INR -- 1.12 -- APTT -- 25.1 -- NA 141 139 140 K 4.3 4.5 4.4 CHLOR 110* 109* -- CO2 24 26 -- BUN 23* 26* -- CREAT 0.95 1.10* -- GLUC 96 104* -- CA 7.9* 7.5* -- MG 2.8* 3.0* -- ANION 11 9 -- Recent Labs 11/28/17 1712 11/28/17 1541 11/28/17 1515 11/28/17 1435 PH 7.357 7.408 7.430 7.398 PCO2 44.6 -- -- -- PO2 76.6* 376.0* 389.0* 345.0* BE -1.1 -- -- -- HCO3 -- 26.1* 26.5* 27.9* Assessment/Plan Symptomatic severe aortic stenosis s/p AVR with 21mm [facility] [facility] Trifecta, aortic root enlargement -monitor chest tube output -c/w ASA. No BB until off Chung. Anticipated acute pulmonary insufficiency s/p CTS (pt does not have respiratory failure) -Wean O2 as able. Encouraged IS and CANDDB Anticipated vasodilation s/p CTS -c/w Chung. Additional IVF bolus ordered. JANNETH -c/w CPAP at night Anticipated acute blood loss anemia -No transfusion since hgb >7. Monitor DVT ppx -Lovenox and SCDs Tests/Labs Ordered: 1. Chest X-ray 2. BMP 3. CBC SIGNATURE: Alison Murray CNP PATIENT NAME: Graciela Brito DATE: November 29, 2017 TIME: 11:51 AM PAGER/CONTACT #: [phone] ETX [id number] BASIC PANEL Collected: 11/29/2017 Status: F Source: [facility] 11:45 AM HEALTH SYSTEM REPOSITORY TYPE CODE TESTS RESULT OUT OF REFERENCE UNITS RANGE LAB NA(LOINC) 136-145 mEq/L Sodium Blood 138 LAB K(LOINC) 3.5-5.1 mEq/L Potassium Blood 4.0 LAB CL(LOINC) 98-107 mEq/L Chloride Blood 107 LAB CO2(LOINC) 21-32 mEq/L CO2 Blood 25 LAB GLU(LOINC) 70-99 mg/dL Glucose High Blood 140 LAB BUN(LOINC) 7-18 mg/dL BUN High Blood 23 LAB CREA(LOINC 0.51-0.95 mg/dL ) High Creatinine Blood 1.01 LAB CA(LOINC) 8.5-10.1 mg/dL Low Calcium Blood 7.6 LAB ANGAP(LOIN 8-16 C) Anion Gap 10 Performed By: #### P8 #### [facility] [address] [place] [address] MDRD GFR Collected: 11/29/2017 Status: F Source: [facility] 11:[address] [place] [address] SYSTEM REPOSITORY TYPE CODE TESTS RESULT OUT OF RANGE REFERENCE UNITS LAB GFRFN(LOINC >60mL/min/1.73m ) 2 eGFR 54.71 Result Comment: If the patient is , multiply the result by 1.210. Performed By: #### GFR #### [facility] [address] [place] [address] HEMOGRAM Collected: 11/29/2017 Status: F Source: [facility] 11:[facility] REPOSITORY TYPE CODE TESTS RESULT OUT OF REFERENCE UNITS RANGE LAB WBC(LOINC) 3.98-10.04 thou/cmm WBC 8.77 LAB RBC(LOINC) 3.93-5.22 mil/cmm Low RBC 2.35 LAB HGB(LOINC) 11.2-15.7 g/dL Low Hgb 7.5 LAB HCT(LOINC) 34.1-44.9 % Low Hct 23.1 LAB MCV(LOINC) 79.4-94.8 fl High MCV 98.3 LAB MCH(LOINC) 25.6-32.2 pg MCH 31.9 LAB MCHC(LOINC) 31.6-34.8 % MCHC 32.5 LAB RDW(LOINC) 11.7-14.4 % RDW 13.5 LAB RDWSD(LOINC 36.4-46.3 fl ) High RDW SD 47.8 LAB PLT(LOINC) 182-369 thou/cmm Low Platelet 102 LAB MPV(LOINC) 9.4-12.3 fl MPV 9.9 Performed By: #### CBC1 #### [facility] [address] [place], [place] [address] GLUCOSE METER Collected: 11/29/2017 Status: F Source: [facility] 11:40 AM HEALTH SYSTEM REPOSITORY TYPE CODE TESTS RESULT OUT OF REFERENCE UNITS RANGE LAB GLUBL(LOINC 70-99 mg/dL ) High Glucose Meter 143 Result Comment: RN NOTIFIED Performed By: #### GLMET #### [facility] [address] [place], [place] [address] THERAPY NT Observed: 11/29/2017 Status: COMPLETED Source: [facility] 10:51 AM CLINIC OTHER CAMPUS REPOSITORY O ID: [id number] Author: Srinivasan (Pt) Quita Service: Physical Therapy Author Type: Physical Therapist Type: Therapy (PT/OT/Speech/Resp) Filed: 11/29/2017 10:51 AM Note Text: PHYSICAL THERAPY MISSED VISIT SERVICE DATE: 11/29/2017 SERVICE TIME: 1038 to 0104 ROOM: [place] [address] Attempted Evaluation. Patient not seen due to Other: See Comment (low blood pressure, hold per nursing). Will attempt later this afternoon. SIGNATURE: Srinivasan Devlin PT PATIENT NAME: Graciela Brito DATE: November 29, 2017 TIME: 10:51 AM PAGER/CONTACT #: GLUCOSE METER Collected: 11/29/2017 Status: F Source: [facility] 9:55 AM HEALTH SYSTEM REPOSITORY TYPE CODE TESTS RESULT OUT OF REFERENCE UNITS RANGE LAB GLUBL(LOINC 70-99 mg/dL ) High Glucose Meter 120 Result Comment: RN NOTIFIED Performed By: #### GLMET #### [facility] [address] [place], [place] [address] GLUCOSE METER Collected: 11/29/2017 Status: F Source: [facility] 7:47 AM HEALTH SYSTEM REPOSITORY TYPE CODE TESTS RESULT OUT OF REFERENCE UNITS RANGE LAB GLUBL(LOINC 70-99 mg/dL ) High Glucose Meter 102 Result Comment: RN NOTIFIED Performed By: #### GLMET #### [facility] [address] [place], [place] [address] GLUCOSE METER Collected: 11/29/2017 Status: F Source: [facility] 6:38 AM HEALTH SYSTEM REPOSITORY TYPE CODE TESTS RESULT OUT OF REFERENCE UNITS RANGE LAB GLUBL(LOINC 70-99 mg/dL ) High Glucose Meter 118 Result Comment: RN NOTIFIED Performed By: #### GLMET #### [facility] [address] [place], [place] [address] CHEST 1 VIEW Observed: 11/29/2017 Status: F Source: [facility] 6:03 AM HEALTH SYSTEM REPOSITORY Performed at [facility] APPROVED BY: Ethan Gomez MD EXAM TITLE: CHEST 1 VIEW DATE: 11/29/2017 05:54 INDICATION: Recent aortic valve replacement COMPARISON: 11/28/2017 FINDINGS: Since the previous exam, the endotracheal tube and esophagogastric tube have been removed. Right thoracostomy tube and right central venous catheter are stable. There is bilateral perihilar discoid atelectasis. Otherwise, lungs are clear. There is no visible pneumothorax. Heart is slightly enlarged and there are sternotomy wires. IMPRESSION: Recent removal of some support lines. Stable appearance of heart and lungs. HEMOGRAM Collected: 11/29/2017 Status: F Source: [facility] 3:55 AM HEALTH SYSTEM REPOSITORY TYPE CODE TESTS RESULT OUT OF REFERENCE UNITS RANGE LAB WBC(LOINC) 3.98-10.04 thou/cmm WBC 9.29 LAB RBC(LOINC) 3.93-5.22 mil/cmm Low RBC 2.59 LAB HGB(LOINC) 11.2-15.7 g/dL Low Hgb 8.3 LAB HCT(LOINC) 34.1-44.9 % Low Hct 25.8 LAB MCV(LOINC) 79.4-94.8 fl High MCV 99.6 LAB MCH(LOINC) 25.6-32.2 pg MCH 32.0 LAB MCHC(LOINC) 31.6-34.8 % MCHC 32.2 LAB RDW(LOINC) 11.7-14.4 % RDW 13.0 LAB RDWSD(LOINC 36.4-46.3 fl ) RDW SD 46.3 LAB PLT(LOINC) 182-369 thou/cmm Low Platelet 113 LAB MPV(LOINC) 9.4-12.3 fl MPV 9.4 Performed By: #### CBC1 #### [place] [address] BASIC PANEL Collected: 11/29/2017 Status: F Source: [facility] 3:55 AM HEALTH SYSTEM REPOSITORY TYPE CODE TESTS RESULT OUT OF REFERENCE UNITS RANGE LAB NA(LOINC) 136-145 mEq/L Sodium Blood 141 LAB K(LOINC) 3.5-5.1 mEq/L Potassium Blood 4.3 LAB CL(LOINC) 98-107 mEq/L Chloride High Blood 110 LAB CO2(LOINC) 21-32 mEq/L CO2 Blood 24 LAB GLU(LOINC) 70-99 mg/dL Glucose Blood 96 LAB BUN(LOINC) 7-18 mg/dL BUN High Blood 23 LAB CREA(LOINC 0.51-0.95 mg/dL ) Creatinine Blood 0.95 LAB CA(LOINC) 8.5-10.1 mg/dL Low Calcium Blood 7.9 LAB ANGAP(LOIN 8-16 C) Anion Gap 11 Performed By: #### P8 #### [place] [address] MAGNESIUM BLOOD Collected: 11/29/2017 Status: F Source: [facility] 3:55 AM HEALTH SYSTEM REPOSITORY TYPE CODE TESTS RESULT OUT OF REFERENCE UNITS RANGE LAB MAG(LOINC) 1.6-2.6 mg/dL High Magnesium Blood 2.8 Performed By: #### MAG #### [place] [address] MDRD GFR Collected: 11/29/2017 Status: F Source: [facility] 3:55 AM HEALTH SYSTEM REPOSITORY TYPE CODE TESTS RESULT OUT OF RANGE REFERENCE UNITS LAB GFRFN(LOINC >60mL/min/1.73m ) 2 eGFR 58.71 Result Comment: If the patient is , multiply the result by 1.210. Performed By: #### GFR #### [place] [address] GLUCOSE METER Collected: 11/29/2017 Status: F Source: [facility] 3:53 AM HEALTH SYSTEM REPOSITORY TYPE CODE TESTS RESULT OUT OF REFERENCE UNITS RANGE LAB GLUBL(LOINC 70-99 mg/dL ) Glucose Meter 98 Performed By: #### GLMET #### [place] [address] GLUCOSE METER Collected: 11/29/2017 Status: F Source: [facility] 1:50 AM HEALTH SYSTEM REPOSITORY TYPE CODE TESTS RESULT OUT OF REFERENCE UNITS RANGE LAB GLUBL(LOINC 70-99 mg/dL ) Glucose Meter 99 Performed By: #### GLMET #### [facility] [address] [place], [place] [address] ANES POST Observed: 11/29/2017 Status: COMPLETED Source: [facility] 12:07 AM CLINIC OTHER CAMPUS REPOSITORY HNO ID: [id number] Author: Ayush Estevez Service: Anesthesiology Author Type: Physician Type: Anesthesia PostOp Filed: 11/29/2017 12:08 AM Note Text: POST ANESTHESIA EVALUATION NOTE SERVICE DATE: 11/29/2017 SERVICE TIME: 12:07 AM : 1950 Vitals: 11/28/17199911/28/17209911/28/17219911/28/17 2255 Temp: 36.9 ?C (98.4 ?F) 37 ?C (98.6 ?F) 37.2 ?C (99 ?F) 37.3 ?C (99.1 ?F) 11/28/17199911/28/17209911/28/17219911/28/17 2255 Arterial BP 1: 114/44 115/44 112/45 117/46 BP: 11/28/17199911/28/17209911/28/17219911/28/17 2255 Pulse: 80 80 80 80 11/28/17199911/28/17209911/28/17219911/28/17 2255 Resp: 18 9 17 15 11/28/17199911/28/17209911/28/17219911/28/17 2255 SpO2: 100% 100% 96% 100% Validated Vital Signs: Yes POST ANES STATUS: No apparent anesthetic complications. The patient is appropriately hydrated with stable respiratory and cardiovascular status. Patient has safe and adequate airway control. The patient has appropriate pain relief and no significant post operative nausea or vomiting. The patient has achieved baseline mental status. Further assessment by Anesthesia Service: None Other Remarks: SIGNATURE: Ayush Estevez MD PATIENT NAME: Graciela Brito DATE: November 29, 2017 TIME: 12:07 AM PAGER/CONTACT #: [phone] CONSULT Observed: 11/29/2017 Status: COMPLETED Source: [facility] 12:00 AM CLINIC OTHER CAMPUS REPOSITORY O ID: [id number] Author: Bairon Camacho Service: Cardiovascular Medicine Author Type: Physician Type: Consults Filed: 11/30/2017 3:15 PM Note Text: [facility] - Consultation PATIENT NAME: GRACIELA BRITO CSN: [id number] DATE OF : 1950 SEX/AGE: F/67 PATIENT TYPE: I HOSP SVC: [facility] LOCATION: [id number] DATE OF SERVICE: 11/29/2017 REFERRING PHYSICIAN: LUKE LESTER CONSULT REQUESTED BY: Dr. Lester. REASON FOR CONSULT: Postop AVR. HISTORY OF PRESENT ILLNESS: The patient is a 67-year-old lady with history off severe aortic stenosis, who was referred by her chronometer tester for consideration for valve replacement. The patient underwent a bioprosthetic aortic valve replacement yesterday with Dr. Lester. Consult was placed in for postop cardiac care. The patient currently denies any chest pain, shortness of breath, palpitations. She said she felt a little lightheaded when she turned her head to the left side only. She denies any orthopnea, PND, or leg edema. PAST MEDICAL HISTORY: Hypertension, severe aortic stenosis, obesity, Sjogren syndrome, rheumatoid arthritis. PAST SURGICAL HISTORY: , tonsillectomy, total abdominal hysterectomy, aortic valve replacement yesterday. FAMILY HISTORY: Not relevant as she does not have any coronary artery disease. SOCIAL HISTORY: Former smoker. No alcohol. No illicit drug use. MEDICATIONS: Please see medical reconciliation form. ALLERGIES: No known drug allergies. REVIEW OF SYSTEMS: A 10-point system reviewed, negative unless otherwise noted in the HPI. PHYSICAL EXAMINATION: VITAL SIGNS: Temperature 36.6, pulse of 87, respiratory rate 17, blood pressure 112/50, oxygen saturation is 97% on room air. GENERAL: She is awake, alert. HEENT: PERRLA. Mucosa moist. NECK: Supple. No JVD. Central line in place. HEART: S1, S2. Rate regular rhythm. No murmurs. LUNGS: Breath sounds equal. Clear to auscultation. ABDOMEN: Soft, obese, nontender. No organomegaly. EXTREMITIES: No pedal edema. SKIN: Warm to touch. LABORATORY FINDINGS AND SIGNIFICANT DIAGNOSTIC STUDIES: Sodium of 138, potassium of 4, chloride of 107, bicarb is 25, BUN is 23, creatinine is 1. WBC is 9, hemoglobin is 7, hematocrit is 23, platelets is 102. The patient had a 12-lead EKG, which shows a paced rhythm at 86 beats per minute. ASSESSMENT AND PLAN: In summary, this 67-year-old lady with history of hypertension, obesity, severe aortic stenosis, who is postoperative day 1 after a bioprosthetic aortic valve replacement. 1. Status post AVR: The patient is to continue aspirin. Clinical examination suggests normal functioning of aortic valve. 2. Hypertension: Currently not on medications due to hypotension. 3. Postoperative hypotension: Expected postop hypotension. Currently on vasopressin and Chung-Synephrine. Currently in the process of being weaned off. 4. Dyslipidemia, to continue statins at the home dose. The patient seems to be progressing appropriately. Telemetry does not reveal any cardiac arrhythmias. We will see the patient as and when required. Please call back with any questions. Bairon Camacho MD Cardiology VMP:[email or web address] /[id number] GLUCOSE METER Collected: 11/28/2017 Status: F Source: [facility] 11:52 PM HEALTH SYSTEM REPOSITORY TYPE CODE TESTS RESULT OUT OF REFERENCE UNITS RANGE LAB GLUBL(LOINC 70-99 mg/dL ) High Glucose Meter 111 Performed By: #### GLMET #### [place] [address] GLUCOSE METER Collected: 11/28/2017 Status: F Source: [facility] 10:25 PM HEALTH SYSTEM REPOSITORY TYPE CODE TESTS RESULT OUT OF REFERENCE UNITS RANGE LAB GLUBL(LOINC 70-99 mg/dL ) High Glucose Meter 109 Performed By: #### GLMET #### [place] [address] GLUCOSE METER Collected: 11/28/2017 Status: F Source: [facility] 7:50 PM HEALTH SYSTEM REPOSITORY TYPE CODE TESTS RESULT OUT OF REFERENCE UNITS RANGE LAB GLUBL(LOINC 70-99 mg/dL ) High Glucose Meter 134 Performed By: #### GLMET #### [place] [address] GLUCOSE METER Collected: 11/28/2017 Status: F Source: [facility] 6:30 PM HEALTH SYSTEM REPOSITORY TYPE CODE TESTS RESULT OUT OF REFERENCE UNITS RANGE LAB GLUBL(LOINC 70-99 mg/dL ) High Glucose Meter 106 Performed By: #### GLMET #### [facility] [address] [place], [place] [address] GLUCOSE METER Collected: 11/28/2017 Status: F Source: [facility] 5:36 PM HEALTH SYSTEM REPOSITORY TYPE CODE TESTS RESULT OUT OF REFERENCE UNITS RANGE LAB GLUBL(LOINC 70-99 mg/dL ) Glucose Meter 92 Result Comment: RN NOTIFIED Performed By: #### GLMET #### [facility] [address] [place] [address] CHEST 1 VIEW Observed: 11/28/2017 Status: F Source: [facility] 5:27 PM HEALTH SYSTEM REPOSITORY Performed at [facility] APPROVED BY: Ethan Gomez MD EXAM TITLE: CHEST 1 VIEW DATE: 11/28/2017 17:24 INDICATION: Status post aortic valve replacement COMPARISON: None. FINDINGS: Numerous EKG leads overlie the thorax. Therefore, the tip of the endotracheal tube is not visible. It does appear to be above the level of the susanne. There is an esophagogastric tube whose tip is in the mid stomach. Right internal jugular central venous catheter tip is at the superior vena cava. There is a right-sided thoracostomy tube. There is no visible pneumothorax. Heart appears to be mildly enlarged. There is an aortic valve replacement. Sternotomy wires are noted. IMPRESSION: Satisfactory postoperative appearance. HEMOGRAM Collected: 11/28/2017 Status: F Source: [facility] 5:12 PM HEALTH SYSTEM REPOSITORY TYPE CODE TESTS RESULT OUT OF REFERENCE UNITS RANGE LAB WBC(LOINC) 3.98-10.04 thou/cmm High WBC 11.12 LAB RBC(LOINC) 3.93-5.22 mil/cmm Low RBC 2.81 LAB HGB(LOINC) 11.2-15.7 g/dL Low Hgb 9.0 LAB HCT(LOINC) 34.1-44.9 % Low Hct 27.9 LAB MCV(LOINC) 79.4-94.8 fl High MCV 99.3 LAB MCH(LOINC) 25.6-32.2 pg MCH 32.0 LAB MCHC(LOINC) 31.6-34.8 % MCHC 32.3 LAB RDW(LOINC) 11.7-14.4 % RDW 12.8 LAB RDWSD(LOINC 36.4-46.3 fl ) RDW SD 46.2 LAB PLT(LOINC) 182-369 thou/cmm Low Platelet 115 LAB MPV(LOINC) 9.4-12.3 fl MPV 9.7 Performed By: #### CBC1 #### [place] [address] BLOOD GAS ARTERIAL Collected: 11/28/2017 Status: F Source: [address] [facility] REPOSITORY TYPE CODE TESTS RESULT OUT OF REFERENCE UNITS RANGE LAB FIO2(LOINC % ) FIO2 50 LAB TEMPA(LOIN C) Temperature 37.0 LAB PH(LOINC) 7.350-7.450 pH Arterial 7.357 LAB PCO2(LOINC 36.0-46.0 mm Hg ) PCO2 Arterial 44.6 LAB PO2(LOINC) 85.0-96.0 mm Hg Low PO2 Arterial 76.6 LAB HCO3A(LOIN 22.0-26.0 mEq/L C) HCO3- 24.4 LAB O2%A(LOINC 95.0-98.0 % ) O2% Sat Arterial 96.9 LAB BASEX(LOIN -2.5 to 2.5 mEq/L C) Base Excess -1.1 Performed By: #### ABG #### [place] [address] PROTIME Collected: 11/28/2017 Status: F Source: [address] [facility] REPOSITORY TYPE CODE TESTS RESULT OUT OF REFERENCE UNITS RANGE LAB PTI(LOINC) 9.3-11.9 sec Prothrombin Time 11.7 LAB INR(LOINC) INR 1.12 Result Comment: Standard Therapy 2.0-3.0 High Dose 2.5-3.5 Performed By: #### PT #### [facility] [address] [place] [address] ACTIVATED PTT Collected: 11/28/2017 Status: F Source: [address] [facility] REPOSITORY TYPE CODE TESTS RESULT OUT OF REFERENCE UNITS RANGE LAB APTT(LOINC 22.0-34.0 sec ) Activated PTT 25.1 Performed By: #### APTT #### [facility] [address] [place] [address] BASIC PANEL Collected: 11/28/2017 Status: F Source: [facility] 5:12 PM HEALTH SYSTEM REPOSITORY TYPE CODE TESTS RESULT OUT OF REFERENCE UNITS RANGE LAB NA(LOINC) 136-145 mEq/L Sodium Blood 139 LAB K(LOINC) 3.5-5.1 mEq/L Potassium Blood 4.5 LAB CL(LOINC) 98-107 mEq/L Chloride High Blood 109 LAB CO2(LOINC) 21-32 mEq/L CO2 Blood 26 LAB GLU(LOINC) 70-99 mg/dL Glucose High Blood 104 LAB BUN(LOINC) 7-18 mg/dL BUN High Blood 26 LAB CREA(LOINC 0.51-0.95 mg/dL ) High Creatinine Blood 1.10 LAB CA(LOINC) 8.5-10.1 mg/dL Low Calcium Blood 7.5 LAB ANGAP(LOIN 8-16 C) Anion Gap 9 Performed By: #### P8 #### [place] [address] MAGNESIUM BLOOD Collected: 11/28/2017 Status: F Source: [facility] 5:12 PM HEALTH SYSTEM REPOSITORY TYPE CODE TESTS RESULT OUT OF REFERENCE UNITS RANGE LAB MAG(LOINC) 1.6-2.6 mg/dL High Magnesium Blood 3.0 Performed By: #### MAG #### [place] [address] MDRD GFR Collected: 11/28/2017 Status: F Source: [facility] 5:12 PM HEALTH SYSTEM REPOSITORY TYPE CODE TESTS RESULT OUT OF RANGE REFERENCE UNITS LAB GFRFN(LOINC >60mL/min/1.73m ) 2 eGFR 49.58 Result Comment: If the patient is , multiply the result by 1.210. Performed By: #### GFR #### [place] [address] GLUCOSE METER Collected: 11/28/2017 Status: F Source: [facility] 4:57 PM HEALTH SYSTEM REPOSITORY TYPE CODE TESTS RESULT OUT OF REFERENCE UNITS RANGE LAB GLUBL(LOINC 70-99 mg/dL ) High Glucose Meter 101 Result Comment: RN NOTIFIED Performed By: #### GLMET #### [facility] [address] [place] [address] BRIEF OP NOT Observed: 11/28/2017 Status: COMPLETED Source: [facility] 4:55 PM [facility] REPOSITORY HNO ID: [id number] Author: Luke Lester Service: Cardiac Surgery Author Type: Physician Type: Brief Op Note Filed: 11/28/2017 4:56 PM Note Text: CARDIOTHORACIC BRIEF OP NOTE LOG ID: [id number] SURGERY/PROCEDURE DATE: 11/28/2017 INCISION/PROCEDURE START TIME: 12:25 PM INCISION CLOSE/PROCEDURE END TIME: 4:29 PM SURGEON(S) AND RED LEADER(S): Surgeon(s) and Role: * Luke Lester - Primary Physician Vulcanizer Rubber Plate: Mouna Davenport (Pa) Scrap Separator: Mouna Barahona SA Scrap Separator (Relief): Heaven Yip SA; Naty [place]) SA Sanjiv PROCEDURES AND ANESTHESIA: Procedure(s) and Anesthesia Type: * AVR W/ CARDIOPULMONARY BYPASS W/ PROSTHETIC OTHER THAN HOMOGRAFT/ STENTLESS TISSUE VALVE - General aortic valve replacement ([address] [place]is Trifecta pericardial); aortic root enlargement with autologoud pericardium ANESTHESIA: General BRIEF FINDINGS: normal LV funciton pre and post op; severe , trileaflet valve; small aortic root; normally functioning aortic bioprosthesis PREOPERATIVE DIAGNOSIS: aortic stenosis POSTOPERATIVE DIAGNOSIS: aortic stenosis ESTIMATED BLOOD LOSS: 250 ml SPECIMENS: aortic valve COMPLICATIONS: None SIGNATURE: Luke Lester MD PATIENT NAME: Graciela Brito DATE: November 28, 2017 TIME: 4:55 PM PAGER/CONTACT #: [phone] CONSULT Observed: 11/28/2017 Status: COMPLETED Source: [facility] 4:50 PM [facility] REPOSITORY HNO ID: [id number] Author: Heaven Benz Service: Critical Care Author Type: Physician Type: Consults Filed: 11/28/2017 5:28 PM Note Text: CRITICAL CARE CONSULT NOTE SERVICE DATE: 11/28/2017 SERVICE TIME: 5:07 PM REASON FOR CONSULT: S/P Surgery and anticipatory post-op respiratory failure. REQUESTING PHYSICIAN: Dr. Lester? ADMITTING PROVIDER: Luke Lester SERVICE DATE: 11/28/2017 SERVICE TIME: 5:07 PM Admission Date: 11/28/2017 AGE: [age] year old LOS: 0 days Subjective : 67yo WF seen post-operatively in the CVICU following median sternotomy for aortic valve replacement due to severe aortic stenosis. Valve area pre-op was 0.84 cm2. No appreciable CADse. She is now intubated orotracheally with a #7-0 ETT on SIMV-12 Vt-450ml P-5 PSV-10 FiO2 50% with SaO2 99% and Ve--7l/min. CXR pending. She is still under sedation from GETA and is on Precedex currently at 0.4mcg/kg/hr. Post-op CXR not yet available. She full PFTs on 11/23 completely WNL. No family present at the bedside. Objective PROBLEMS: ACTIVE PROBLEM LIST Aortic Valve Stenosis Obesity, Class III, BMI >= 40 E66.01 PAST MEDICAL HISTORY Diagnosis Date - Aortic valve disorders ? followed by PCP - Central apnea - Diabetes mellitus without mention of complication Diabetes mellitus/ RESOVED PER PATIENT - Dyspnea - History of Sjogren's disease - Hypothyroidism - Mixed hyperlipidemia Hyperlipidemia - Myalgia and myositis, unspecified - Nerve damage LEFT ARM - Obesity (BMI 30-39.9) - Rheumatoid arthritis(714.0) - Secondary pulmonary arterial hypertension (HCC) - Unspecified sleep apnea PAST SURGICAL HISTORY Procedure Laterality Date - CARDIAC CATH 10/26/2017 [facility] - DELIVERY ONLY 1970 , low cervical - REMOVAL GALLBLADDER 1971 Cholecystectomy - REMOVAL OF TONSILS,<12 Y/O 1976 Tonsillectomy - REVISE MEDIAN N/CARPAL TUNNEL SURG Bilateral ' Carpal tunnel decomp - TOTAL ABDOM HYSTERECTOMY 1975 Hysterectomy, DIANDRA - TOTAL KNEE REPLACEMENT Right 2004 Knee replacement, total Social History Marital status: Spouse name: Years of education: Number of children: Social History Main Topics Smoking status: Former Smoker Packs/day: 1.00 Years: 5.00 Types: Cigarettes Quit date: 11/16/1987 Smokeless status: Never Used Comment: quit 30 yrs ago Alcohol use: No Drug use: No Other Topics Concern Service No Blood Transfusions No Caffeine Concern Yes Occupational Exposure No Hobby Hazards No Sleep Concern Yes Stress Concern Yes Weight Concern Yes Special Diet No Back Care Yes Exercise No Bike Helmet No Seat Belt Yes Self-Exams No VITAL SIGNS (last 24hrs min/max): Temp Av.3 ?C (97.4 ?F) Min: 36.2 ?C (97.2 ?F) Max: 36.4 ?C (97.5 ?F) Pulse Av Min: 64 Max: 64 No Data Recorded Cuff BP Min: 134/51 Max: 134/51 Pain Score: 0/10 Vital signs reviewed. BP 134/51 Pulse 64 Temp (Src) 97.5 (Grewal Thermistor) Resp 20 Ht 4' 9 (1.45m) Wt 224 lb (101.6kg) SpO2 99% BMI 48.46 kg/(m2). Temp (24hrs), Av.3 ?C (97.4 ?F), Min:36.2 ?C (97.2 ?F), Max:36.4 ?C (97.5 ?F) NET FLUID BALANCE No intake or output data in the 24 hours ending 11/28/17 1707 MEDICATIONS Current Facility-Administered Medications: heparin 3,000 Units in NaCl 0.9% 500 mL 1-5,000 Units/hr INTRAVENOUS ONCE PHENYLephrine 20 mg in NaCl 0.9% 250 mL (NEOSYNEPHRINE) 25- 100 mcg/min INTRAVENOUS ONCE PHENYLephrine 10 mg in NaCl 0.9% 250 mL (NEOSYNEPHRINE) 25- 100 mcg/min INTRAVENOUS ONCE EPINEPHrine 4 mg in NaCl 0.9% 250 mL 0.5-4 mcg/min INTRAVENOUS ONCE insulin regular human 100 Units in NaCl 0.9% 100 mL 0.5 Units/hr INTRAVENOUS ONCE aminocaproic acid 10 g in NaCl 0.9% 250 mL (AMicAR) 1 g/hr INTRAVENOUS ONCE dexmedetomidine 400 mcg in NaCl 0.9% 100 mL (PRECEDEX) 0.2- 0.7 mcg/kg/hr INTRAVENOUS ONCE NORepinephrine 16 mg in NaCl 0.9% 250 mL (LEVOPHED) 0.6-20 mcg/min INTRAVENOUS ONCE nitroglycerin 100 mg in D5W 250 mL 5-200 mcg/min INTRAVENOUS ONCE dextrose 50% in water 100 mL, insulin regular human 10 Units, potassium chloride 80 mEq, lidocaine 100 mg, magnesium sulfate 4 g in electrolyte-a (PLASMA-LYTE A) 1,000 mL solution MISCELLANEOUS ONCE dextrose 50% in water 50 mL, insulin regular human 5 Units, potassium chloride 20 mEq, lidocaine 50 mg, magnesium sulfate 2 g in electrolyte-a (PLASMA-LYTE A) 500 mL solution MISCELLANEOUS ONCE potassium chloride 26 mEq, magnesium sulfate 2 g, sodium bicarbonate 13 mEq, mannitol 20% 3.2 g, lidocaine (PF) 130 mg in electrolyte-a (PLASMA-LYTE A) 1,000 mL INTRAVENOUS ONCE Lines, Drains, and Airways Line Arterial Line 11/28/17 1120 Arterial Line Left Radial less than 1 day Central Line Quadruple Lumen 11/28/17 1200 Non-tunneled Right Neck less than 1 day Peripheral 11/28/17 1045 Left Forearm 16 Gauge less than 1 day Drain Chest Tube 11/28/17 1600 Midline Mediastinal 28 Fr less than 1 day Chest Tube 11/28/17 1600 Midline Mediastinal 32 Fr less than 1 day Indwelling Urinary Catheter 11/28/17 1200 Temperature Monitoring 16 Fr less than 1 day PHYSICAL EXAM PERFORMED: Age-appropriate WD WN obese WF orotracheally intubated. BP-134/51 P-87 and paced. RR--22-24 on SIMV-12 Temp-97.5 HEENT- Absent upper dentition. No thrush. Fair lower dentition. Thick bulky tongue. Neck: Thick. Right IJV TLC in place. No carotid bruits. No LAD. Cardiovascular: Regular rhythm and Paced Respiratory: Rhonchi bilat expiration and coarse inspiratory BSs. No Data Recorded Abdomen: Soft, Nontender and rare BSs. Obese with mild pannus. No rash. 3/3 palpable femoral pulses. Extremities: Edema- No. No rashes or effusions. Neurologic: Sedated Respiratory/Nursing Documentation: O2 Therapy: Room Air (11/28/17 1053) HEMODYNAMIC DATA: Reviewed NUTRITION: Enteral Feeds: No NPO DATA: Diagnostic tests reviewed for today's visit, films/specimens were personally reviewed by me: Most recent labs CXR pending post-op. LABS: Recent Labs 11/28/17 1541 HCT 24* NA 140 K 4.4 ABG: Recent Labs 11/28/17 1541 11/28/17 1515 11/28/17 1435 PH 7.408 7.430 7.398 PO2 376.0* 389.0* 345.0* Assessment/Plan IMPRESSION: Critical Care Documentation: The patient has the following organ/system impairment(s): Anticipatory post-op respiratory failure. 1. Hypoxic anticipatory respiratory failure. 2. Immediate post-op AoVR 3. NIDDM 4. Known JANNETH/CSA on CPAP but settings are not known. 5. Known RA on MTX and Plaquenil 6. Known Sjogren's Syndrome 7. Secondary PAH by history 8. Known hypothyroidism. [facility] CRITICAL CARE PLAN: Bronchodilators , IV fluids, Ventilatory support , Weaning and Replace electrolytes 1. Wean vent and hope to extubate tonight. 2. Allow BiPAP 15/7 tonight and PRN. 3. Await CXR and ABG results. 4. DVT/Stress ulcer prophylaxis 5. Bronchodilators. This patient has a high probability of sudden, clinically significant deterioration, which requires the highest level of physician preparedness to intervene urgently. I managed/supervised life or organ supporting interventions that required frequent physician assessment. I devoted my full attention to the direct care of this patient for the amount of time indicated below. Time I spent with family or surrogate(s) is included only if the patient was incapable of providing the necessary information or participating in medical decision making. Time devoted to teaching is not included. Discussed with staff/patient/family Time spent providing critical care services: 35 minutes excluding procedures. SIGNATURE: Heaven Benz MD PATIENT NAME: Graciela Brito DATE: November 28, 2017 TIME: 5:07 PM NURSING PROG Observed: 11/28/2017 Status: COMPLETED Source: [facility] 3:50 PM [facility] OTHER CAMPUS REPOSITORY HNO ID: [id number] Author: Enid GonzalezRn) HANS Epps Service: Cardiac Surgery Author Type: Registered Nurse Type: Nursing Progress Note Filed: 11/28/2017 3:57 PM Note Text: FAMILY NOTIFIED OF CASE STATUS. CG8 ARTERIAL PANEL Collected: 11/28/2017 Status: F Source: [facility] (I-STAT) 3:41 PM HEALTH SYSTEM REPOSITORY TYPE CODE TESTS RESULT OUT OF REFERENCE UNITS RANGE LAB PHISA(LOIN 7.350-7.450 C) pH (i-STAT) 7.408 LAB PC2IA(LOIN 35.0-45.0 mm Hg C) PCO2 (i-STAT) 41.3 LAB PO2IA(LOIN 80.0-105.0 mm Hg C) PO2 High (i-STAT) 376.0 LAB HC3IA(LOIN 22.0-26.0 mmol/L C) HCO3- High (i-STAT) 26.1 LAB BSXIA(LOIN -2.0 to 3.0 mmol/L C) Base Excess (i-STAT) 1.0 LAB SO2IA(LOIN 95.0-98.0 % C) O2% Sat. High (i-STAT) 100.0 LAB TC2IA(LOIN 23-27 mmol/L C) Total CO2 (i-STAT) 27 LAB GLUIA(LOIN 70-99 mg/dL C) Glucose High (i-STAT) 137 LAB NAI2A(LOIN 138-146 mmol/L C) Sodium (i-STAT) 140 LAB KIS2A(LOIN 3.5-4.9 mmol/L C) Potassium 4.4 (i-STAT) LAB ICALA(LOIN 4.5-5.3 mg/dL C) Ionized Calcium (iSTAT) 4.7 LAB HCTIA(LOIN 38-51 %PCV C) Low Hematocrit 24 (i-STAT) LAB HGBIA(LOIN 12.0-17.0 g/dL C) Low Hemoglobin 8.2 (i-STAT) Performed By: #### CG8IA #### [place] [address] ACT ARTERIAL PANEL Collected: 11/28/2017 Status: F Source: [facility] (I-STAT) 3:40 PM HEALTH SYSTEM REPOSITORY TYPE CODE TESTS RESULT OUT OF REFERENCE UNITS RANGE LAB ACTAI(LOINC 74-137 sec ) Kaolin ACT ( 109 i-STAT) Performed By: #### ACTIA #### [place] [address] CG8 ARTERIAL PANEL Collected: 11/28/2017 Status: F Source: [facility] (I-STAT) 3:15 PM HEALTH SYSTEM REPOSITORY TYPE CODE TESTS RESULT OUT OF REFERENCE UNITS RANGE LAB PHISA(LOIN 7.350-7.450 C) pH (i-STAT) 7.430 LAB PC2IA(LOIN 35.0-45.0 mm Hg C) PCO2 (i-STAT) 39.9 LAB PO2IA(LOIN 80.0-105.0 mm Hg C) PO2 High (i-STAT) 389.0 LAB HC3IA(LOIN 22.0-26.0 mmol/L C) HCO3- High (i-STAT) 26.5 LAB BSXIA(LOIN -2.0 to 3.0 mmol/L C) Base Excess (i-STAT) 2.0 LAB SO2IA(LOIN 95.0-98.0 % C) O2% Sat. High (i-STAT) 100.0 LAB TC2IA(LOIN 23-27 mmol/L C) Total High CO2 (i-STAT) 28 LAB GLUIA(LOIN 70-99 mg/dL C) Glucose High (i-STAT) 155 LAB NAI2A(LOIN 138-146 mmol/L C) Low Sodium (i-STAT) 137 LAB KIS2A(LOIN 3.5-4.9 mmol/L C) High Potassium 5.4 (i-STAT) LAB ICALA(LOIN 4.5-5.3 mg/dL C) Low Ionized Calcium (iSTAT) 4.0 LAB HCTIA(LOIN 38-51 %PCV C) Low Hematocrit 23 (i-STAT) LAB HGBIA(LOIN 12.0-17.0 g/dL C) Low Hemoglobin 7.8 (i-STAT) Performed By: #### CG8IA #### [place] [address] ACT ARTERIAL PANEL Collected: 11/28/2017 Status: F Source: [facility] (I-STAT) 3:14 PM HEALTH SYSTEM REPOSITORY TYPE CODE TESTS RESULT OUT OF REFERENCE UNITS RANGE LAB ACTAI(LOINC 74-137 sec ) High Kaolin ACT ( 621 i-STAT) Performed By: #### ACTIA #### [place] [address] NURSING PROG Observed: 11/28/2017 Status: COMPLETED Source: [facility] 2:54 PM CLINIC OTHER CAMPUS REPOSITORY HNO ID: [id number] Author: Enid Chavez) HANS Epps Service: Cardiac Surgery Author Type: Registered Nurse Type: Nursing Progress Note Filed: 11/28/2017 2:54 PM Note Text: FAMILY UPDATED ON CASE STATUS. ACT ARTERIAL PANEL Collected: 11/28/2017 Status: F Source: [facility] (I-STAT) 2:35 PM HEALTH SYSTEM REPOSITORY TYPE CODE TESTS RESULT OUT OF REFERENCE UNITS RANGE LAB ACTAI(LOINC 74-137 sec ) High Kaolin ACT ( 522 i-STAT) Performed By: #### ACTIA #### [facility] [address] [place], [place] [address] CG8 ARTERIAL PANEL Collected: 11/28/2017 Status: F Source: [facility] (I-STAT) 2:35 PM HEALTH SYSTEM REPOSITORY TYPE CODE TESTS RESULT OUT OF REFERENCE UNITS RANGE LAB PHISA(LOIN 7.350-7.450 C) pH (i-STAT) 7.398 LAB PC2IA(LOIN 35.0-45.0 mm Hg C) PCO2 High (i-STAT) 45.2 LAB PO2IA(LOIN 80.0-105.0 mm Hg C) PO2 High (i-STAT) 345.0 LAB HC3IA(LOIN 22.0-26.0 mmol/L C) HCO3- High (i-STAT) 27.9 LAB BSXIA(LOIN -2.0 to 3.0 mmol/L C) Base Excess (i-STAT) 3.0 LAB SO2IA(LOIN 95.0-98.0 % C) O2% Sat. High (i-STAT) 100.0 LAB TC2IA(LOIN 23-27 mmol/L C) Total High CO2 (i-STAT) 29 LAB GLUIA(LOIN 70-99 mg/dL C) Glucose High (i-STAT) 172 LAB NAI2A(LOIN 138-146 mmol/L C) Low Sodium (i-STAT) 137 LAB KIS2A(LOIN 3.5-4.9 mmol/L C) High Potassium 5.4 (i-STAT) LAB ICALA(LOIN 4.5-5.3 mg/dL C) Low Ionized Calcium (iSTAT) 4.1 LAB HCTIA(LOIN 38-51 %PCV C) Low Hematocrit 25 (i-STAT) LAB HGBIA(LOIN 12.0-17.0 g/dL C) Low Hemoglobin 8.5 (i-STAT) Performed By: #### CG8IA #### [facility] [address] [place], [place] [address] CG8 ARTERIAL PANEL Collected: 11/28/2017 Status: F Source: [facility] (I-STAT) 1:59 PM HEALTH SYSTEM REPOSITORY TYPE CODE TESTS RESULT OUT OF REFERENCE UNITS RANGE LAB PHISA(LOIN 7.350-7.450 C) pH (i-STAT) 7.424 LAB PC2IA(LOIN 35.0-45.0 mm Hg C) PCO2 (i-STAT) 42.9 LAB PO2IA(LOIN 80.0-105.0 mm Hg C) PO2 High (i-STAT) 377.0 LAB HC3IA(LOIN 22.0-26.0 mmol/L C) HCO3- High (i-STAT) 28.1 LAB BSXIA(LOIN -2.0 to 3.0 mmol/L C) Base Excess (i-STAT) 4.0 LAB SO2IA(LOIN 95.0-98.0 % C) O2% Sat. High (i-STAT) 100.0 LAB TC2IA(LOIN 23-27 mmol/L C) Total High CO2 (i-STAT) 29 LAB GLUIA(LOIN 70-99 mg/dL C) Glucose High (i-STAT) 148 LAB NAI2A(LOIN 138-146 mmol/L C) Sodium (i-STAT) 138 LAB KIS2A(LOIN 3.5-4.9 mmol/L C) High Potassium 5.3 (i-STAT) LAB ICALA(LOIN 4.5-5.3 mg/dL C) Low Ionized Calcium (iSTAT) 4.2 LAB HCTIA(LOIN 38-51 %PCV C) Low Hematocrit 25 (i-STAT) LAB HGBIA(LOIN 12.0-17.0 g/dL C) Low Hemoglobin 8.5 (i-STAT) Performed By: #### CG8IA #### [place] [address] ACT ARTERIAL PANEL Collected: 11/28/2017 Status: F Source: [facility] (I-STAT) 1:58 PM HEALTH SYSTEM REPOSITORY TYPE CODE TESTS RESULT OUT OF REFERENCE UNITS RANGE LAB ACTAI(LOINC 74-137 sec ) High Kaolin ACT ( 615 i-STAT) Performed By: #### ACTIA #### [place] [address] NURSING PROG Observed: 11/28/2017 Status: COMPLETED Source: [facility] 1:40 PM CLINIC OTHER CAMPUS REPOSITORY HNO ID: [id number] Author: Enid (Rn) HANS Epps Service: Cardiac Surgery Author Type: Registered Nurse Type: Nursing Progress Note Filed: 11/28/2017 1:41 PM Note Text: FAMILY NOTIFIED OF CASE STATUS. CG8 VENOUS PANEL Collected: 11/28/2017 Status: F Source: [facility] (I-STAT) 1:34 PM HEALTH SYSTEM REPOSITORY TYPE CODE TESTS RESULT OUT OF REFERENCE UNITS RANGE LAB PHISV(LOIN 7.310-7.410 C) pH High (i-STAT) 7.423 LAB PC2IV(LOIN 41.0-51.0 mm Hg C) Low PCO2 (i-STAT) 37.4 LAB PO2IV(LOIN 20.0-50.0 mm Hg C) PO2 (i-STAT) 38.0 LAB HC3IV(LOIN 23.0-28.0 mmol/L C) HCO3- (i-STAT) 24.4 LAB BSXIV(LOIN -2.0 to 3.0 mmol/L C) Base Excess (i-STAT) 0.0 LAB SO2IV(LOIN 35.0-85.0 % C) O2% Sat. (i-STAT) 73.0 LAB TC2IV(LOIN 24-29 mmol/L C) Total CO2 (i-STAT) 26 LAB GLUIV(LOIN 70-99 mg/dL C) Glucose High (i-STAT) 114 LAB NAI2V(LOIN 138-146 mmol/L C) Sodium (i-STAT) 138 LAB KIS2V(LOIN 3.5-4.9 mmol/L C) High Potassium 5.4 (i-STAT) LAB ICALV(LOIN 4.5-5.3 mg/dL C) Low Ionized Calcium (iSTAT) 4.1 LAB HCTIV(LOIN 38-51 %PCV C) Low Hematocrit 24 (i-STAT) LAB HGBIV(LOIN 12.0-17.0 g/dL C) Low Hemoglobin 8.2 (i-STAT) Performed By: #### CG8IV #### [place] [id number] CG8 ARTERIAL PANEL Collected: 11/28/2017 Status: F Source: [facility] (I-STAT) 1:25 PM HEALTH SYSTEM REPOSITORY TYPE CODE TESTS RESULT OUT OF REFERENCE UNITS RANGE LAB PHISA(LOIN 7.350-7.450 C) pH High (i-STAT) 7.474 LAB PC2IA(LOIN 35.0-45.0 mm Hg C) Low PCO2 (i-STAT) 34.6 LAB PO2IA(LOIN 80.0-105.0 mm Hg C) PO2 High (i-STAT) 380.0 LAB HC3IA(LOIN 22.0-26.0 mmol/L C) HCO3- (i-STAT) 25.4 LAB BSXIA(LOIN -2.0 to 3.0 mmol/L C) Base Excess (i-STAT) 2.0 LAB SO2IA(LOIN 95.0-98.0 % C) O2% Sat. High (i-STAT) 100.0 LAB TC2IA(LOIN 23-27 mmol/L C) Total CO2 (i-STAT) 26 LAB GLUIA(LOIN 70-99 mg/dL C) Glucose High (i-STAT) 114 LAB NAI2A(LOIN 138-146 mmol/L C) Low Sodium (i-STAT) 137 LAB KIS2A(LOIN 3.5-4.9 mmol/L C) High Potassium 5.4 (i-STAT) LAB ICALA(LOIN 4.5-5.3 mg/dL C) Low Ionized Calcium (iSTAT) 4.0 LAB HCTIA(LOIN 38-51 %PCV C) Low Hematocrit 23 (i-STAT) LAB HGBIA(LOIN 12.0-17.0 g/dL C) Low Hemoglobin 7.8 (i-STAT) Performed By: #### CG8IA #### [place] [address] ACT ARTERIAL PANEL Collected: 11/28/2017 Status: F Source: [facility] (I-STAT) 1:24 PM HEALTH SYSTEM REPOSITORY TYPE CODE TESTS RESULT OUT OF REFERENCE UNITS RANGE LAB ACTAI(LOINC 74-137 sec ) High Kaolin ACT ( 714 i-STAT) Performed By: #### ACTIA #### [place] [address] CG8 ARTERIAL PANEL Collected: 11/28/2017 Status: F Source: [facility] (I-STAT) 12:55 PM HEALTH SYSTEM REPOSITORY TYPE CODE TESTS RESULT OUT OF REFERENCE UNITS RANGE LAB PHISA(LOIN 7.350-7.450 C) pH (i-STAT) 7.444 LAB PC2IA(LOIN 35.0-45.0 mm Hg C) PCO2 (i-STAT) 36.7 LAB PO2IA(LOIN 80.0-105.0 mm Hg C) PO2 High (i-STAT) 256.0 LAB HC3IA(LOIN 22.0-26.0 mmol/L C) HCO3- (i-STAT) 25.1 LAB BSXIA(LOIN -2.0 to 3.0 mmol/L C) Base Excess (i-STAT) 1.0 LAB SO2IA(LOIN 95.0-98.0 % C) O2% Sat. High (i-STAT) 100.0 LAB TC2IA(LOIN 23-27 mmol/L C) Total CO2 (i-STAT) 26 LAB GLUIA(LOIN 70-99 mg/dL C) Glucose (i-STAT) 99 LAB NAI2A(LOIN 138-146 mmol/L C) Sodium (i-STAT) 140 LAB KIS2A(LOIN 3.5-4.9 mmol/L C) Potassium 4.3 (i-STAT) LAB ICALA(LOIN 4.5-5.3 mg/dL C) Low Ionized Calcium (iSTAT) 4.4 LAB HCTIA(LOIN 38-51 %PCV C) Low Hematocrit 26 (i-STAT) LAB HGBIA(LOIN 12.0-17.0 g/dL C) Low Hemoglobin 8.8 (i-STAT) Performed By: #### CG8IA #### [place] [address] ACT ARTERIAL PANEL Collected: 11/28/2017 Status: F Source: [facility] (I-STAT) 12:54 PM HEALTH SYSTEM REPOSITORY TYPE CODE TESTS RESULT OUT OF REFERENCE UNITS RANGE LAB ACTAI(LOINC 74-137 sec ) High Kaolin ACT ( 934 i-STAT) Performed By: #### ACTIA #### [place] [address] NURSING PROG Observed: 11/28/2017 Status: COMPLETED Source: [facility] 12:49 PM CLINIC OTHER CAMPUS REPOSITORY HNO ID: [id number] Author: Mercedez (Rn) HANS Thomas Service: Cardiac Surgery Author Type: Registered Nurse Type: Nursing Progress Note Filed: 11/28/2017 12:50 PM Note Text: FAMILY NOTIFIED OF SURGERY START AT 1224. CG8 ARTERIAL PANEL Collected: 11/28/2017 Status: F Source: [facility] (I-STAT) 11:41 AM HEALTH SYSTEM REPOSITORY TYPE CODE TESTS RESULT OUT OF REFERENCE UNITS RANGE LAB PHISA(LOIN 7.350-7.450 C) pH High (i-STAT) 7.453 LAB PC2IA(LOIN 35.0-45.0 mm Hg C) PCO2 (i-STAT) 40.4 LAB PO2IA(LOIN 80.0-105.0 mm Hg C) PO2 High (i-STAT) 416.0 LAB HC3IA(LOIN 22.0-26.0 mmol/L C) HCO3- High (i-STAT) 28.3 LAB BSXIA(LOIN -2.0 to 3.0 mmol/L C) Base Excess (i-STAT) 4.0 LAB SO2IA(LOIN 95.0-98.0 % C) O2% Sat. High (i-STAT) 100.0 LAB TC2IA(LOIN 23-27 mmol/L C) Total High CO2 (i-STAT) 29 LAB GLUIA(LOIN 70-99 mg/dL C) Glucose High (i-STAT) 104 LAB NAI2A(LOIN 138-146 mmol/L C) Sodium (i-STAT) 139 LAB KIS2A(LOIN 3.5-4.9 mmol/L C) Potassium 4.4 (i-STAT) LAB ICALA(LOIN 4.5-5.3 mg/dL C) Ionized Calcium (iSTAT) 4.7 LAB HCTIA(LOIN 38-51 %PCV C) Low Hematocrit 30 (i-STAT) LAB HGBIA(LOIN 12.0-17.0 g/dL C) Low Hemoglobin 10.2 (i-STAT) Performed By: #### CG8IA #### [facility] [address] [place] [address] ACT ARTERIAL PANEL Collected: 11/28/2017 Status: F Source: [facility] (I-STAT) 11:40 AM HEALTH SYSTEM REPOSITORY TYPE CODE TESTS RESULT OUT OF REFERENCE UNITS RANGE LAB ACTAI(LOINC 74-137 sec ) Kaolin ACT ( 120 i-STAT) Performed By: #### ACTIA #### [facility] [address] [place] [address] RBC PRODUCTS Collected: 11/28/2017 Status: F Source: [facility] 10:50 AM HEALTH SYSTEM REPOSITORY TYPE CODE TESTS RESULT OUT OF REFERENCE UNITS RANGE LAB UNIT1(LOINC ) Xmatch Unit 1 see below Result Comment: Compatible LAB UNIT2(LOINC) Xmatch Unit 2 see below Result Comment: Compatible Performed By: #### RBCPS #### [facility] [address] [place] [address] ABO/RH CONFIRMATION Collected: 11/28/2017 Status: F Source: [facility] 10:35 AM HEALTH SYSTEM REPOSITORY TYPE CODE TESTS RESULT OUT OF REFERENCE UNITS RANGE LAB ABO(LOINC) A ABO Group LAB WELDER AND FITTER(LOINC) RH Type Positive Performed By: #### ABOCK #### [facility] [address] [place] [address] GLUCOSE METER Collected: 11/28/2017 Status: F Source: [facility] 10:33 AM HEALTH SYSTEM REPOSITORY TYPE CODE TESTS RESULT OUT OF REFERENCE UNITS RANGE LAB GLUBL(LOINC 70-99 mg/dL ) Glucose Meter 92 Result Comment: MD NOTIFIED Performed By: #### GLMET #### [place] [address] ANES PREOP Observed: 11/28/2017 Status: COMPLETED Source: [facility] 8:21 AM CLINIC OTHER CAMPUS REPOSITORY O ID: [id number] Author: Kate Francis Service: Anesthesiology Author Type: Physician Type: Anesthesia PreOp Filed: 11/28/2017 10:47 AM Note Text: ANESTHESIOLOGY DAY OF SURGERY NOTE SERVICE DATE: 11/28/2017 SERVICE TIME: 10:45 AM : 1950 Procedure(s) (LRB): AVR W/ CARDIOPULMONARY BYPASS W/ PROSTHETIC OTHER THAN HOMOGRAFT/ STENTLESS TISSUE VALVE (N/A) Surgeon(s): Luke Lester Estimated body mass index is 48.47 kg/(m2) as calculated from the following: Height as of this encounter: 144.8 cm (4' 9). Weight as of this encounter: 101.6 kg (224 lb). Most recent hematocrit and potassium results: Hematocrit 36.7 11/23/2017 Potassium 4.8 11/23/2017 67yo female with , pulmonary HTN, JANNETH on CPAP, RA on methotrexate, obesity, HL, hypothyroidism, Sjogren's syndrome, DM(no meds). Echo - 10/06 - EF 65%, DD II, no RWMA, mod LAE, severe , DANA 0.84, peak AV gradient 58, mean gradient 33, mildly dilated RV LHC - normal coronaries, DANA 0.94 with peak to peak gradient 30, moderate pulmonary HTN ANES DOS/PREOP NOTE: Vitals: 11/25/17 1500 Weight: 101.6 kg (224 lb) Height: 144.8 cm (4' 9) ACTIVE PROBLEM LIST Aortic Valve Stenosis PAST MEDICAL HISTORY Diagnosis Date - Aortic valve disorders ? followed by PCP - Central apnea - Diabetes mellitus without mention of complication Diabetes mellitus/ RESOVED PER PATIENT - Dyspnea - History of Sjogren's disease - Hypothyroidism - Mixed hyperlipidemia Hyperlipidemia - Myalgia and myositis, unspecified - Nerve damage LEFT ARM - Obesity (BMI 30-39.9) - Rheumatoid arthritis(714.0) - Secondary pulmonary arterial hypertension (HCC) - Unspecified sleep apnea PAST SURGICAL HISTORY Procedure Laterality Date - CARDIAC CATH 10/26/2017 [facility] - DELIVERY ONLY 1969 , low cervical - REMOVAL GALLBLADDER 1971 Cholecystectomy - REMOVAL OF TONSILS,<12 Y/O 1976 Tonsillectomy - REVISE MEDIAN N/CARPAL TUNNEL SURG Bilateral 90'S Carpal tunnel decomp - TOTAL ABDOM HYSTERECTOMY 1975 Hysterectomy, DIANDRA - TOTAL KNEE REPLACEMENT Right 2003 Knee replacement, total FAMILY HISTORY Problem Relation Age of Onset - positive [OTHER] Other Sister with MS - Cancer Mother - Coronary Artery Disease Father 63 from [place] - Cervical Cancer Sister - Coronary Artery Disease Brother 45 CABG - Cancer Brother Social History: Social History Substance Use Topics - Smoking status: Former Smoker Packs/day: 1.00 Years: 5.00 Types: Cigarettes Quit date: 11/16/1987 - Smokeless tobacco: Never Used Comment: quit 30 yrs ago - Alcohol use No No current facility-administered medications on file prior to encounter. Current Outpatient Prescriptions on File Prior to Encounter: calcitriol (ROCALTROL) 0.25 mcg capsule Take 0.25 mcg by mouth 3 times a WEEK. simvastatin (ZOCOR) 20 mg tablet Take 20 mg by mouth daily at bedtime. clonazePAM (KLONOPIN) 1 mg tablet Take 1 mg by mouth daily at bedtime. isosorbide mononitrate ER (IMDUR) 30 mg 24 hr tablet Take 30 mg by mouth once daily. levothyroxine (SYNTHROID) 50 mcg tablet Take 50 mcg by mouth once daily. hydroxychloroquine (PLAQUENIL) 200 mg tablet Take 400 mg by mouth once daily. lisinopril (ZESTRIL, PRINIVIL) 40 mg tablet Take 40 mg by mouth once daily. aspirin, enteric coated (ASPIRIN, ENTERIC COATED) 81 mg EC tablet Take 81 mg by mouth once daily. folic acid 1 mg tablet Take 1 mg by mouth once daily. hydroCHLOROthiazide (HYDRODIURIL, ESIDRIX) 25 mg tablet Take 25 mg by mouth once daily. sertraline hcl(ZOLOFT 50 MG TAB) Take one(1) tablet daily. No current facility-administered medications for this encounter. Current Outpatient Prescriptions: METHOTREXATE, BULK, MISC 2.5 mg once each week. 8 TABS EVERY TUESDAY Disp: Rfl: calcitriol (ROCALTROL) 0.25 mcg capsule Take 0.25 mcg by mouth 3 times a WEEK. Disp: Rfl: simvastatin (ZOCOR) 20 mg tablet Take 20 mg by mouth daily at bedtime. Disp: Rfl: clonazePAM (KLONOPIN) 1 mg tablet Take 1 mg by mouth daily at bedtime. Disp: Rfl: 2 isosorbide mononitrate ER (IMDUR) 30 mg 24 hr tablet Take 30 mg by mouth once daily. Disp: Rfl: levothyroxine (SYNTHROID) 50 mcg tablet Take 50 mcg by mouth once daily. Disp: Rfl: hydroxychloroquine (PLAQUENIL) 200 mg tablet Take 400 mg by mouth once daily. Disp: Rfl: lisinopril (ZESTRIL, PRINIVIL) 40 mg tablet Take 40 mg by mouth once daily. Disp: Rfl: aspirin, enteric coated (ASPIRIN, ENTERIC COATED) 81 mg EC tablet Take 81 mg by mouth once daily. Disp: Rfl: folic acid 1 mg tablet Take 1 mg by mouth once daily. Disp: Rfl: hydroCHLOROthiazide (HYDRODIURIL, ESIDRIX) 25 mg tablet Take 25 mg by mouth once daily. Disp: Rfl: sertraline hcl(ZOLOFT 50 MG TAB) Take one(1) tablet daily. Disp: 100 Rfl: 4 Allergies: ALLERGIES Allergen Reactions - Cipro [Ciprofloxaci* Hives - Contrast Dye Hives - Humira [Adalimumab] Shortness of Breath - Lantus [Insulin Gla* Swelling - Zithromax [Azithrom* Hives DOS EXAM: Adequate NPO status: Yes Anesthetic risks, benefits, alternatives, personnel and consent discussed: Yes Patient agrees to proceed: Yes Previous Anesthesia: No history of adverse event. Airway Assessment: MP 2; Neck ROM: Full ROM without neurologic symptoms; Airway Evaluation: Thick neck Symptoms of Sleep Apnea: BMI > 35 and Age over 50 (67 year old) Dentition: Dentures: upper Removable partial: lower Additional Physical Exam: Lungs: Patient health status unchanged since recent history and physical. See history and physical for exam findings. Cardiac: Patient health status unchanged since recent history and physical. See history and physical for exam findings. Additional Pertinent Findings: N/A Blood Products: TANDC 2 units PRBCs Anesthetic Plan: General, Standard ASA Monitors, CVC, arterial line, KERMIT Pain Management Plan: per Surgical Service ASA Class: 4 Other Medical Problems: None Chronic Beta Noemi medication administered within 24 hours: N/A I have interviewed and examined the patient. I have reviewed the medical record and/or the pre-anesthesia evaluation, pertinent labs, and test results. Significant changes in the patient's condition since the History and Physical, not otherwise documented in primary service progress notes: No This contains updated information obtained within 48 hours of Surgery/Procedure. SIGNATURE: Kate Francis MD PATIENT NAME: Gracieal Brito DATE: November 28, 2017 TIME: 8:21 AM CSN: [id number] OPERATIVE NO Observed: 11/28/2017 Status: COMPLETED Source: [facility] 12:00 AM CLINIC OTHER CAMPUS REPOSITORY O ID: [id number] Author: Luke Lester Service: Cardiac Surgery Author Type: Physician Type: Operative Report Filed: 12/01/2017 7:52 PM Note Text: [facility] - Operative Report SURGEON: Luke Lester MD PATIENT NAME: GRACIELA BRITO CSN: [id number] DATE OF SURGERY: 11/28/2017 DATE OF : 1950 SEX/AGE: F/67 PATIENT TYPE: I HOSP SVC: [facility] LOCATION: [id number] DATE OF SURGERY: 11/28/2017 SURGEON: Luke Lester MD REFERRING PHYSICIAN: LUKE LESTER PREOPERATIVE DIAGNOSIS: Symptomatic severe aortic stenosis. POSTOPERATIVE DIAGNOSIS: Symptomatic severe aortic stenosis. PROCEDURES: Aortic valve replacement with a [address] [employer] Trifecta pericardial prosthesis; aortic root enlargement with autologous pericardium. RED LEADER: Ms. Kincaid, Ms. Barahona, and Bob. ANESTHESIA: Performed under general anesthesia. The cross-clamp time and the perfusion time are per the perfusion record. COMPLICATIONS: There were no complications. FINDINGS: Included normal left ventricle function pre and postoperatively; trileaflet aortic valve with severe aortic stenosis; small aortic root; normally functioning bioprosthesis in the aortic position. EBL: 250 mL. SPECIMENS: Included resected portions of the aortic valve. DESCRIPTION OF PROCEDURE: This is a 67-year-old woman with known , which has progressed into the severe range. She is now symptomatic. She has normal left ventricular function and cardiac catheterization revealed no significant coronary lesions. We recommended aortic valve replacement with a bioprosthesis of the procedure, the intended benefits, potential complications, and staff indications were discussed at length. All questions were answered. She understood and she consented to proceed. DESCRIPTION OF PROCEDURE: A preoperative huddle was performed. She was brought to the operating room, placed on the operating table in supine position. Central venous and radial artery accesses were obtained. She was given general anesthesia and intubated. A KERMIT probe was placed. A Grewal catheter was placed. She was prepped and draped sterilely. SCDs were also placed. She received subcutaneous Lovenox and IV antibiotics. Preop KERMIT confirmed a trileaflet aortic valve with severe aortic stenosis with peak gradient over 4, mean greater in the high 30s. There were no other valvular lesions. A time-out was performed. A median sternotomy was made. The sternal rn access was placed in the wound. A pericardial well was made. We had anticipated the aortic root being small based on the echocardiographic findings. Therefore, generous portion of the anterior pericardium was resected for use as augmentation patch for the root. The ascending aorta was free of any palpable atherosclerotic disease. LV function appeared grossly normal. She was heparinized and cannulated for cardiopulmonary bypass via the aorta and right atrium. After an adequate ACT was achieved, cardiopulmonary bypass was initiated. Ambulation was stopped. The aortic root was vented. A retrograde cardioplegia cannula was placed for coronary sinus. The left ventricle was vented via the right superior pole vein. The cross-clamp was then applied. The heart was arrested 1000 mL of cold, antegrade [place] cardioplegia. A 2nd dose of [place] cardioplegia was administered approximately 45 minutes after the 1st cardioplegia dose. The field was flooded with CO2. An oblique aortotomy was made. The aortic valve was exposed, trileaflet heavily calcified stenotic. Leaflets were excised and the anulus was debrided. We irrigated the annulus and the ventricle to remove any and all debris. We then sized the anulus at this point. We were unable to pass a size [address] Moris Trifecta into position with the small size of this root. The decision was made to perform root augmentation and so we took our piece of autologous pericardium for uses that patch. We opened the aortotomy, further cutting down through the midportion of the noncoronary sinus through the anulus and onto the base of the mitral valve. Care being taken not to go beyond the hinge point and care being taken not to open up the left atrium. The pericardial patch was then sutured in place with a double layer of 4- 0 and 5-0 Prolene suture in a running. We then sized to a [address] Moris pericardial prosthesis, which was sutured in place with 17, 2-Ethibond pledgeted sutures. Pledgets were on the aortic side in the left and right sinuses and they were brought in through the patch in the augmented portion. The sutures were passed through the valve sewing ring. The valve seated well. The suture was then tied down and cut. The aortotomy was then closed with running 4-0 Prolene suture in double layer from the left side anteriorly and then we used the patch to augment our closure on the right. A shotgun shell assembly machine operator was administered. The aortic cross- clamp was removed. The heart regained spontaneous bradycardiac rhythm, atrial and ventricular wires were placed and ground leads were placed and secured the skin atrioventricular pacing was initiated. Ventilation was resumed. The heart was allowed to fill and eject. When the there was absence of any intracavitary air. We removed our vents, weaned from bypass and decannulated and reversed with protamine. KERMIT now showed a normally functioning bioprosthesis in the aortic position and normal LV function. A right pleural tube and mediastinal tube were placed through the skin. Hemostasis was assiduously obtained. The sternum was then closed with wires. Pectoral fascia, subcutaneous tissue, and skin were closed in layers with absorbable suture. Dry sterile dressings were applied. Sponge counts and needle counts were correct. The patient was then returned to CVICU in good condition. Luke Lester MD Cardiothoracic Surgery JAL:modl /[id number] SURGICAL TISSUE EXAM Observed: 11/28/2017 Status: F Source: [facility] 12:00 AM HEALTH SYSTEM REPOSITORY Test performed at [place] [address] NAME: GRACIELA BRITO REQUESTING: LUKE LESTER MD FINAL DIAGNOSIS: AORTIC VALVE REPLACEMENT - HYALINIZED, CALCIFIED VALVE CUSPS CONSISTENT WITH CALCIFIC AORTIC STENOSIS. OPERATIVE PROCEDURE: Aortic valve replacement CLINICAL INFORMATION: Aortic stenosis GROSS DESCRIPTION: Aortic valve Received in formalin labeled mitral valve are three semilunar valve cusps measuring 1.7 to 1.9 cm in length along the free edge and 1.1 to 1.2 cm in width from free edge to base. There is no evidence of commissure fusion. There is mild calcification and mild fibrosis. Lambl's excrescences are not identified. Fenestrations are not identified. No vegetations or perforations are present. Accounts Receivable Accountant sections are submitted in formalin in one cassette. KVB:eladia MCKINNON M.D. (Electronic signature on file) Signed out: 12/01/2017 14:37 PRINTED: 12/01/2017 Page 1 of 1 Performed By: #### SURG #### [place] [address] PROGRESS Observed: 11/25/2017 Status: COMPLETED Source: [facility] 2:23 PM CLINIC OTHER CAMPUS REPOSITORY HNO ID: [id number] Author: Reshma Stephen Service: (none) Author Type: Tetryl Wringer Operator Type: Progress Notes Filed: 05/19/2018 9:02 AM Note Text: CTVS Surgery Pre-Op Open Heart Check List Patient Info: Graciela Brito 1950 67 year old Cipro [Ciprofloxacin]; Contrast Dye; Humira [Adalimumab]; Lantus [Insulin Glargine]; Zithromax [Azithromycin] Last set of vitals: Wt: 224 lb (101.6 kg) BMI: 48.47 kg/(m2) There were no vitals taken for this visit. Wt: 224 lb (101.6 kg) BMI: 48.47 kg/(m2) Procedure: AVR Diagnosis: Severe Date of Procedure: 11/28/2017 STS Risk Score: 1.289% CARE TEAM: Literacy Education Professor: [facility] PCP: N/A Other provider: N/A Pre-Op Testing: LABS: CBC, CMP, Mg, PT/INR, UA Not working Recent Labs 11/23/17 1200 INR 0.96 - not working Chemistry Na 141 K 4.8 Cl 104 CO2 33 Gluc 96 BUN 23 Cr. 0.96 Ca 9.1 Alb 3.8 TPROT 6.8 AST 17 ALT 18 Alk Phos 55 TBILI 0.2 Anion GAP 9 eGFR 58.01 Mag 2.2 WBC 6.57 RBC 3.73 Hgb 11.8 Hct 36.7 MCV 98.4 MCH 31.6 MCHC 32.2 RDW 13.1 RDW SD 46.7 Plt 220 MPV 10.7 Coag Recent Labs 11/23/17 1200 INR 0.96 - not working Type AND Cross A+ MRSA Screen: Negative HGA1C 5.7 PFT/ABG: Done, Results pending FEVI: DLCO: ABG: . IMAGING/PROCEDURES CXR: Enlarged heart, normal mediastinum, armando. Normal visualized pulmonary arteries. There is atherosclerotic calcification of the aortic arch with tortuosity. There are diffuse degenerative changes of the thoracic spine. There is degenerative osteoarthritis of the bilateral shoulders. Cardiac Catheterization: FROM O[facility]: LV gram 65-75% Right Heart: CO 4.77 CI 2.51 PW 15 PA 39/11 24 RV 48/0 9 RA 11/4 3 PVR 151 SVR 1560 Aortic Valve Area 0.94 BRIANNA 0.49 Mean gradient 25.3 LM: Normal LAD: mild luminal irregularities less than 30% Cx: Mild luminal irregularities less than 30% RCA: Mild luminal irregularities less than 30% Valves: AV: mild calcifications, with severe , No AI 2D Echo: STACIE Le Heart EF: 65% RV: Mildly dilated LA: moderately enlarged RA: Normal MV: Moderate MAC TV: 5 Meter Walk Test: N/A OPTIONAL TESTINGS: Carotid U/S: N/A Lower EXT RONNA: N/A Palmar Arch: N/A Vein Mapping: N/A Dental Clearance: No acute dental infections CT Chest: 11/23/2017 IMPRESSION: 2 to 3 mm solitary pulmonary nodule at the right upper lobe. Depending on clinical ?risk factors for lung cancer, a follow-up chest CT could be obtained in 12 months. Otherwise, there is no acute process. ? Medications Notes: Blood thinners: Patient is on following blood thinners: Aspirin -Yes, dose 81 mg, stopped No Beta Noemi: Last dose of beta noemi taken: N/A CLEARANCES NEEDED Pulmonary: No GI: No Hematology: No Other: No Nahed Machado CNP Observed: 11/23/2017 Status: F Source: [facility] MRSA/MSSA SCREEN 3:00 PM HEALTH SYSTEM REPOSITORY Test performed at [facility] No Staph aureus or MRSA detected. Performed By: #### PSTSS #### [place] [address] Observed: 11/23/2017 Status: F Source: [facility] CULT URINE 3:00 PM HEALTH SYSTEM REPOSITORY Test performed at [facility] No growth Performed By: #### C_URI #### [place] [address] CT CHEST W/O CONTRAST Observed: 11/23/2017 Status: F Source: [facility] [id number] 12:06 PM HEALTH SYSTEM REPOSITORY Performed at [facility] APPROVED BY: Ethan Gomez MD EXAMINATION: CHEST CT WITHOUT CONTRAST Indication: Presurgical assessment for heart valve replacement Technique: Spiral CT acquisition of the chest from the thoracic inlet to the upper abdomen without contrast. MQ: [id number]_3 Contrast: [address] Dose-Length Product: 824 mGy*cm CT Dose Reduction Employed: 1. Automated exposure control (AEC) was used. Comparison: None RESULT: Limitations: None. Lines, tubes, and devices: None. Lung parenchyma and pleura: There is a 2 to 3 mm right upper lobe nodule near the mediastinum (3:34). Otherwise, the lungs are clear of mass lesions or active infiltrates. There is no pleural effusion. No endobronchial lesion is identified. Thoracic inlet, heart, and mediastinum: There is coronary artery disease. However, the heart is not enlarged. There is no evidence for aneurysmal dilatation of the aorta. There is no pericardial effusi on or mediastinal lymphadenopathy. Bones and soft tissues: No destructive bone lesion. Chest wall is unremarkable. Upper abdomen: No abnormality in the imaged upper abdomen. IMPRESSION: 2 to 3 mm solitary pulmonary nodule at the right upper lobe. Depending on clinical risk factors for lung cancer, a follow-up chest CT could be obtained in 12 months. Otherwise, there is no acute process. PROTIME Collected: 11/23/2017 Status: F Source: [facility] 12:00 PM HEALTH SYSTEM REPOSITORY TYPE CODE TESTS RESULT OUT OF REFERENCE UNITS RANGE LAB MPTI(LOINC 9.0-11.5 sec ) Prothrombin Time 9.8 LAB MINR(LOINC ) INR 0.96 Result Comment: Standard Therapy 2.0-3.0 High Dose 2.5-3.5 Performed By: #### MPT #### [place] [address] URINALYSIS ROUTINE Collected: 11/23/2017 Status: F Source: [facility] 11:37 AM HEALTH SYSTEM REPOSITORY TYPE CODE TESTS RESULT OUT OF RANGE REFERENCE UNITS LAB COLOR(LOIN C) Urine Color YELLOW LAB APPUR(LOIN C) Urine Appearance CLEAR LAB GLUUR(LOIN Negative mg/dL C) Glucose Urine NEGATIVE LAB KETON(LOIN Negative mg/dL C) Ketone Urine NEGATIVE LAB HGBUR(LOIN Negative C) Hemoglobin,Urin NEGATIVE e LAB PROTU(LOIN Negative mg/dL C) Protein Urine NEGATIVE LAB NITRI(LOIN Negative C) Nitrites Urine NEGATIVE LAB BILIU(LOIN Negative C) Bilirubin Urine NEGATIVE LAB SPG(LOINC) 1.005-1.030 Specific 1.011 [place], Ur LAB PHUR(LOINC 5.0-8.0 ) pH,Urine 6.0 LAB UROBI(LOIN 0.0-1.0 EU/dL C) Urobilinogen,Ur 0.2 LAB LEUKO(LOIN Negative C) Abnormal Leukocytes SMALL Esterase LAB RBCU1(LOIN 0.0-5.0 /hpf C) RBC,Urine 1.4 LAB WBCU1(LOIN 0.0-5.0 /hpf C) WBC, Urine 3.0 LAB EPIT1(LOIN 0.0-5.0 /hpf C) Ep Cells Urine 0.5 LAB BACT1(LOIN None C) Bacteria Urine NONE LAB HYCA1(LOIN 0.0-1.0 /lpf C) Hyaline Cast 0.8 Performed By: #### URIN2 #### [facility] [address] [place] [address] TYPE AND SCREEN Collected: 11/23/2017 Status: F Source: [place] [address]:[address] [place] [address] SYSTEM REPOSITORY TYPE CODE TESTS RESULT OUT OF REFERENCE UNITS RANGE LAB ABO(LOINC) A ABO Group LAB WELDER AND FITTER(LOINC ) RH Type Positive LAB ABSCR(LOIN C) Antibody NEGATIVE Screen LAB BBCMT(LOIN C) Comment PAT specimen Performed By: #### T&S #### [place] [address] MDRD GFR Collected: 11/23/2017 Status: F Source: [address] SYSTEM REPOSITORY TYPE CODE TESTS RESULT OUT OF RANGE REFERENCE UNITS LAB GFRFN(LOINC >60mL/min/1.73m ) 2 eGFR 58.01 Result Comment: If the patient is , multiply the result by 1.210. Performed By: #### GFR #### [place] [address] HEMOGRAM Collected: 11/23/2017 Status: F Source: [address] SYSTEM REPOSITORY TYPE CODE TESTS RESULT OUT OF REFERENCE UNITS RANGE LAB WBC(LOINC) 3.98-10.04 thou/cmm WBC 6.57 LAB RBC(LOINC) 3.93-5.22 mil/cmm Low RBC 3.73 LAB HGB(LOINC) 11.2-15.7 g/dL Hgb 11.8 LAB HCT(LOINC) 34.1-44.9 % Hct 36.7 LAB MCV(LOINC) 79.4-94.8 fl High MCV 98.4 LAB MCH(LOINC) 25.6-32.2 pg MCH 31.6 LAB MCHC(LOINC) 31.6-34.8 % MCHC 32.2 LAB RDW(LOINC) 11.7-14.4 % RDW 13.1 LAB RDWSD(LOINC 36.4-46.3 fl ) High RDW SD 46.7 LAB PLT(LOINC) 182-369 thou/cmm Platelet 220 LAB MPV(LOINC) 9.4-12.3 fl MPV 10.7 Performed By: #### CBC1 #### [facility] [address] [place] [address] MAGNESIUM BLOOD Collected: 11/23/2017 Status: F Source: [facility] 11:34 HEALTH SYSTEM REPOSITORY TYPE CODE TESTS RESULT OUT OF REFERENCE UNITS RANGE LAB MAG(LOINC) 1.6-2.6 mg/dL Magnesium Blood 2.2 Performed By: #### MAG #### [facility] [address] [place] [address] COMPREHENSIVE PANEL Collected: 11/23/2017 Status: F Source: [address] HEALTH SYSTEM REPOSITORY TYPE CODE TESTS RESULT OUT OF REFERENCE UNITS RANGE LAB NA(LOINC) 136-145 mEq/L Sodium Blood 141 LAB K(LOINC) 3.5-5.1 mEq/L Potassium Blood 4.8 LAB CL(LOINC) 98-107 mEq/L Chloride Blood 104 LAB CO2(LOINC) 21-32 mEq/L CO2 Blood High 33 LAB GLU(LOINC) 70-99 mg/dL Glucose Blood 96 LAB BUN(LOINC) 7-18 mg/dL BUN Blood High 23 LAB CREA(LOINC 0.51-0.95 mg/dL ) Creatinine High Blood 0.96 LAB CA(LOINC) 8.5-10.1 mg/dL Calcium Blood 9.1 LAB ALB(LOINC) 3.4-5.0 g/dL Albumin Blood 3.8 LAB TP(LOINC) 6.4-8.2 g/dL Total Protein 6.8 LAB AST(LOINC) 9-37 U/L AST-SGOT Blood 17 LAB ALT(LOINC) 12-78 U/L ALT-SGPT Blood 18 LAB ALKP(LOINC 46-116 U/L ) Alk Phosphatase 55 LAB BILIT(LOIN 0.2-1.0 mg/dL C) Total Bilirubin 0.2 LAB ANGAP(LOIN 8-16 C) Anion Gap 9 Performed By: #### P14 #### [facility] [address] [place] [address] MDRD GFR Collected: 11/23/2017 Status: F Source: [facility] 11:34 AM HEALTH SYSTEM REPOSITORY TYPE CODE TESTS RESULT OUT OF RANGE REFERENCE UNITS LAB GFRFN(LOINC >60mL/min/1.73m ) 2 eGFR 58.01 Result Comment: If the patient is , multiply the result by 1.210. Performed By: #### GFR #### [facility] [address] [place] [address] HGB A1C Collected: 11/23/2017 Status: F Source: [facility] 11:34 AM HEALTH SYSTEM REPOSITORY TYPE CODE TESTS RESULT OUT OF RANGE REFERENCE UNITS LAB A1C5(LOINC) 4.2-6.3 % Hgb A1c 5.7 Result Comment: Method is National Glycohemoglobin Standardization Program (NGSP) compliant. LAB ESAVG(LOINC) mg/dl Est. Avg Glucose 117 Performed By: #### HA1C #### [facility] [address] [place] [address] HISTORY PHYSICAL Observed: 11/23/2017 Status: COMPLETED Source: [facility] 11:25 AM CLINIC OTHER CAMPUS REPOSITORY HNO ID: [id number] Author: Rimma Shipman (Infrastructure Director) Re Service: (none) Author Type: Nurse Practitioner Type: HANDP Filed: 11/23/2017 11:45 AM Note Text: HISTORY AND PHYSICAL EXAMINATION SERVICE DATE: 11/23/2017 SERVICE TIME: 11:26 AM PRIMARY CARE PHYSICIAN: Bird Garza MD The patient has the following: ACTIVE PROBLEM LIST Aortic Valve Stenosis Subjective CHIEF COMPLAINT: SOB HPI: This is a 67 year old female with c/o above. Know murmur for many years but has progressively worsened. Her physician retired so she started with a new PCP who referred her to a chronometer tester. ECHO 2017 shows mild to moderate AV stenosis, A more recent ECHO shows moderately severe to severe stenosis. Patient referred to Heart surgeon. Currently has fatigue and dyspnea on exertion. Cardiac cath reveals minimal CAD. Patient had pulmonary fcn test this AM and is scheduled for a Ct Scan this afternoon. After discussion with surgeon patient agrees to surgical intervention. PAST MEDICAL HISTORY Diagnosis Date - Aortic valve disorders ? followed by PCP - Central apnea - Diabetes mellitus without mention of complication Diabetes mellitus/ RESOVED PER PATIENT - Dyspnea - History of Sjogren's disease - Hypothyroidism - Mixed hyperlipidemia Hyperlipidemia - Myalgia and myositis, unspecified - Nerve damage LEFT ARM - Obesity (BMI 30-39.9) - Rheumatoid arthritis(714.0) - Secondary pulmonary arterial hypertension (HCC) - Unspecified sleep apnea PAST SURGICAL HISTORY Procedure Laterality Date - CARDIAC CATH 10/26/2017 [facility] - DELIVERY ONLY 1969 , low cervical - REMOVAL GALLBLADDER 1971 Cholecystectomy - REMOVAL OF TONSILS,<12 Y/O 1976 Tonsillectomy - REVISE MEDIAN N/CARPAL TUNNEL SURG Bilateral 'S Carpal tunnel decomp - TOTAL ABDOM HYSTERECTOMY 1975 Hysterectomy, DIANDRA - TOTAL KNEE REPLACEMENT Right 2004 Knee replacement, total FAMILY HISTORY Problem Relation Age of Onset - positive [OTHER] Other Sister with MS - Cancer Mother - Coronary Artery Disease Father 63 from [place] - Cervical Cancer Sister - Coronary Artery Disease Brother 45 CABG - Cancer Brother SOCIAL HISTORY: Social History Marital status: Spouse name: Years of education: Number of children: Social History Main Topics Smoking status: Former Smoker Packs/day: 1.00 Years: 5.00 Types: Cigarettes Quit date: 11/16/1987 Smokeless status: Never Used Comment: quit 30 yrs ago Alcohol use: No Drug use: No Other Topics Concern Service No Blood Transfusions No Caffeine Concern Yes Occupational Exposure No Hobby Hazards No Sleep Concern Yes Stress Concern Yes Weight Concern Yes Special Diet No Back Care Yes Exercise No Bike Helmet No Seat Belt Yes Self-Exams No Prior to Admission medications as of 11/23/17 1125 Medication Sig Last Dose Taking METHOTREXATE, BULK, MISC 2.5 mg once each week. 8 TABS EVERY TUESDAY Yes calcitriol (ROCALTROL) 0.25 mcg capsule Take 0.25 mcg by mouth 3 times a WEEK. Yes simvastatin (ZOCOR) 20 mg tablet Take 20 mg by mouth daily at bedtime. Yes clonazePAM (KLONOPIN) 1 mg tablet Take 1 mg by mouth daily at bedtime. Yes isosorbide mononitrate ER (IMDUR) 30 mg 24 hr tablet Take 30 mg by mouth once daily. Yes levothyroxine (SYNTHROID) 50 mcg tablet Take 50 mcg by mouth once daily. Yes hydroxychloroquine (PLAQUENIL) 200 mg tablet Take 400 mg by mouth once daily. Yes lisinopril (ZESTRIL, PRINIVIL) 40 mg tablet Take 40 mg by mouth once daily. Yes aspirin, enteric coated (ASPIRIN, ENTERIC COATED) 81 mg EC tablet Take 81 mg by mouth once daily. Yes folic acid 1 mg tablet Take 1 mg by mouth once daily. Yes hydroCHLOROthiazide (HYDRODIURIL, ESIDRIX) 25 mg tablet Take 25 mg by mouth once daily. Yes sertraline hcl(ZOLOFT 50 MG TAB) Take one(1) tablet daily. Yes No medication comments found. ALLERGIES Allergen Reactions - Cipro [Ciprofloxaci* Hives - Contrast Dye Hives - Humira [Adalimumab] Shortness of Breath - Lantus [Insulin Gla* Swelling - Zithromax [Azithrom* Hives REVIEW OF SYSTEMS: PAIN ASSESSMENT: General: Denies fever, chills, and unexpected weight change. Neuro: Denies dizziness and headaches. Respiratory: Denies SOB and cough Sleep Apnea Sjogrens Cardiovascular: Denies CP and palpitations. Pulm HTN Murmur GI: Denies abd pain and N/V/D. : Denies dysuria and frequency. Endocrine: Diabetes (Resolved) Hypothyroid Hematology: Denies history of bleeding or clotting disorder. Musculoskeletal: Denies joint pain and swelling. Skin: Denies open sores and rashes. Objective PHYSICAL EXAM: VITALS: BP 152/68 Pulse 60 Temp 97.9 Resp 18 Ht 4' 9 (1.45m) Wt 224 lb (101.6kg) SpO2 98% BMI 48.46 kg/(m2). General: NAD. Cooperative. Skin: Skin is warm, no rashes, and no open sores. HEENT: Normocephalic. Cardiovascular: Normal S1 AND S2. RRR Murmur noted Lungs: CTA. No respiratory distress. Abdomen: Soft. Extremities: Slight edema.left lower extremity Neurological: Alert and oriented x 3 Pulses: radial pulses +2 PLAN HTN - Well controlled METS: SOB with stairs occasionally with walking flat level areas, depend on the day Occasional very mild chest pain no radiation ANESTHESIA FINDINGS: Intubation History: No history of difficult intubation Significant Anesthesia Considerations: None DX: Aortic valve stenosis [I35.0] Planned Procedure: AVR W/ CARDIOPULMONARY BYPASS W/ PROSTHETIC OTHER THAN HOMOGRAFT/ STENTLESS TISSUE VALVE [6451] The Following Tests/Procedures Have Been Initiated: CONSULTS: none Planned Anesthetic: General Instructions Given to Patient: Patient given verbal and written preop instructions and voices comprehension and compliance. SIGNATURE: Rimma Grimaldo CNP PATIENT NAME: Graciela Brito DATE: November 23, 2017 TIME: 11:26 AM PAGER/CONTACT #: [email or web address] Observed: 11/23/2017 Status: COMPLETED Source: [facility] 10:00 AM [facility] OTHER [place] REPOSITORY Office Visit ([facility]) GRACIELA BRITO ([id number]) 1950 F Date Time Provider Department 11/23/17 10:00 AM PULM [facility] LAB [facility] During your visit today, we recorded the following information about you: Referring Provider: LUKE LESTER [[id number]] Allergies As of Date: 11/23/2017 Noted Allergy Reaction CIPRO (CIPROFLOXACIN) 11/26/2008 4 - Hives CONTRAST DYE 01/01/2009 4 - Hives HUMIRA (ADALIMUMAB) 11/16/2017 12 - Shortness of Breath LANTUS (INSULIN GLARGINE) 01/01/2009 7 - Swelling ZITHROMAX (AZITHROMYCIN) 01/01/2009 4 - Hives Date Reviewed: 11/18/2017 Reviewed by: Jayal (Rn) HANS Rosas - Fully Assessed Reason for Visit: Shortness of Breath [227] Visit Diagnoses:Aortic valve stenosis, etiology of cardiac valve disease unspecified [I35.0] Preoperative testing [Z01.818] Nonrheumatic aortic valve stenosis [I35.0] Obstructive sleep apnea syndrome [G47.33] Order(s):SPIROMETRY BASELINE ONLY [1781955] Order #: [id number] LUNG DIFFUSION CAPACITY (DLCO) [1494932] Order #: [id number] LUNG VOLUMES [6249577] Order #: [id number] Prescriptions as of 11/23/2017 Sig: METHOTREXATE (BULK) MISC 2.5 mg once each week. 8 TABS* CALCITRIOL 0.25 MCG CAPSULE Take 0.25 mcg by mouth 3 time* SIMVASTATIN 20 MG TABLET Take 20 mg by mouth daily at * CLONAZEPAM 1 MG TABLET Take 1 mg by mouth daily at b* ISOSORBIDE MONONITRATE ER 30 * Take 30 mg by mouth once nelia* LEVOTHYROXINE 50 MCG TABLET Take 50 mcg by mouth once walter* HYDROXYCHLOROQUINE 200 MG TAB* Take 400 mg by mouth once walter* LISINOPRIL 40 MG TABLET Take 40 mg by mouth once nelia* ASPIRIN 81 MG TABLET,DELAYED * Take 81 mg by mouth once nelia* FOLIC ACID 1 MG TABLET Take 1 mg by mouth once daily. HYDROCHLOROTHIAZIDE 25 MG TAB* Take 25 mg by mouth once nelia* * NORTRIPTYLINE 10 MG CAPSULE Take one(1) tablet at bedtime. * ZOLOFT 50 MG TABLET Take one(1) tablet daily. Problem List As Of Date 11/23/2017 Noted Resolved Aortic valve stenosis [I35.0] INVALID FOR* More... Encounter Status:Closed by JEMIMA WHEAT on 11/23/17 CBC W/DIFF, AUTOMATED Collected: 11/18/2017 Status: F Source: [place] 1:21 PM [facility] REPOSITORY TYPE CODE TESTS RESULT OUT OF RANGE REFERENCE UNITS LAB L100.1000 4.4-11.0 K/mm3 Normal WBC 5.1 LAB L100.1200 4.2-5.4 M/mm3 Low RBC 3.77 LAB L100.1300 12.0-15.0 g/dl Low HGB 11.6 LAB L100.1400 37-47 % Normal HCT 37.4 LAB L100.1500 81-99 fL High MCV 99.2 LAB L100.1600 27.0-32.0 pg Normal MCH 30.8 LAB L100.1700 32-36 g/gl Low MCHC 31.0 LAB L100.1810 11.6-14.6 % Normal RDW CV 13.6 LAB L100.1820 35.1-43.9 fl High RDW SD 48.9 LAB L100.1900 150-450 K/mm3 Normal PLT 210 LAB L100.2000 6.2-12.0 fl Normal MPV 9.9 LAB L100.2100 47-70 % Normal NEUT% 52.9 LAB L100.2200 19-41 % Normal LY% 35.9 LAB L100.2300 0-10 % Normal MONO% 9.0 LAB L100.2400 0-5 % Normal EO% 1.4 LAB L100.2500 0-1 % Normal BASO% 0.8 LAB L100.2550 0.0-0.9 % Normal IM GRAN % 0.000 Result Comment: IG% - Immature Granulocytes (promyelocytes, myelocytes and metamyelocytes) > 1% indicates that a LEFT SHIFT is Present. LAB L100.2620 2.0-7.7 X10 3/uL Normal Absolute Neut 2.7 LAB L100.2720 0.83-4.51 X10 3/ul Normal Absolute Lymph 1.84 Performed By: #### L100.0100, L101.9900 #### [facility] [address] [place], [address] ERYTHROCYTE SED RATE Collected: 11/18/2017 Status: F Source: [place] 1:21 PM [facility] REPOSITORY TYPE CODE TESTS RESULT OUT OF RANGE REFERENCE UNITS LAB L102.0000 0-30 mm/hr Normal SED RATE 4 Performed By: #### L100.0100, L101.9900 #### [facility] [address] [place], [place], [id number] BUN Collected: 11/18/2017 Status: F Source: [place] 1:21 PM [facility] REPOSITORY TYPE CODE TESTS RESULT OUT OF RANGE REFERENCE UNITS LAB L501.1000 7-18 mg/dL High BUN 21 Performed By: #### L501.1000, L501.1105, L501.1800, L501.4100, L501.4405, L501.6710 #### [facility] [address] [place], [place], [id number] SERUM CREATININE AND Collected: 11/18/2017 Status: F Source: [place] GFR 1:21 PM [facility] REPOSITORY TYPE CODE TESTS RESULT OUT OF RANGE REFERENCE UNITS LAB L501.1100 0.55-1.02 mg/dL High 1.16 CREAT,SERUM Result Comment: The validity of the calculated GFR AND GFRAA in patients over 70 years has not been determined. Clinical correlation is essential. LAB L501.1110 >60 mL/min Low EST GFR 50 Result Comment: Non- GFR Calc LAB L501.1115 >60 mL/min Normal EST GFR - AA 60 Result Comment: GFR Calc Performed By: #### L501.1000, L501.1105, L501.1800, L501.4100, L501.4405, L501.6710 #### [facility] [address] [place], [address] ALBUMIN, SERUM Collected: 11/18/2017 Status: F Source: [place] 1:21 PM [facility] REPOSITORY TYPE CODE TESTS RESULT OUT OF RANGE REFERENCE UNITS LAB L501.1800 3.2-5.0 g/dL Normal ALB 3.8 Performed By: #### L501.1000, L501.1105, L501.1800, L501.4100, L501.4405, L501.6710 #### [facility] [address] [place], [address] AST(SGOT) Collected: 11/18/2017 Status: F Source: [place] 1:21 PM [facility] [place] REPOSITORY TYPE CODE TESTS RESULT OUT OF RANGE REFERENCE UNITS LAB L501.4100 15-37 U/L Normal AST 19 Performed By: #### L501.1000, L501.1105, L501.1800, L501.4100, L501.4405, L501.6710 #### [facility] [address] [place], [address] ALANINE AMINOTRANSFERAS Collected: 11/18/2017 Status: F Source: [place] (SGPT) 1:21 PM [facility] [place] REPOSITORY TYPE CODE TESTS RESULT OUT OF RANGE REFERENCE UNITS LAB L501.4405 13-56 U/L Normal ALT 21 Result Comment: Please note revised ALT reference range effective 2017. Performed By: #### L501.1000, L501.1105, L501.1800, L501.4100, L501.4405, L501.6710 #### [facility] [address] [place], [address] CRP Collected: 11/18/2017 Status: F Source: [place] 1:21 PM [facility] [place] REPOSITORY TYPE CODE TESTS RESULT OUT OF RANGE REFERENCE UNITS LAB L501.6710 0.0-3.0 mg/L Normal < 2.90 C-REACTIVE PROT Result Comment: C-Reactive Protein (CRP) provides useful information for the diagnosis, therapy and monitoring of inflammatory processes and associated diseases. For the evaluation of Relative Risk for Cardiovascular Disease, a High Sensitivity CRP (HSCRP) should be ordered. Performed By: #### L501.1000, L501.1105, L501.1800, L501.4100, L501.4405, L501.6710 #### [facility] [address] [place], [address] HOSP Observed: 11/17/2017 Status: COMPLETED Source: [place] 12:00 AM CLINIC OTHER CAMPUS REPOSITORY Patient:Graciela Brito MRN: <[id number]> Height:4' 9(1.448 m) Weight:224 lb (101.606 kg) Outpatient Medications as of 11/28/17: METHOTREXATE, BULK, MISC calcitriol (ROCALTROL) 0.25 mcg capsule simvastatin (ZOCOR) 20 mg tablet clonazePAM (KLONOPIN) 1 mg tablet isosorbide mononitrate ER (IMDUR) 30 mg 24 hr tablet levothyroxine (SYNTHROID) 50 mcg tablet hydroxychloroquine (PLAQUENIL) 200 mg tablet lisinopril (ZESTRIL, PRINIVIL) 40 mg tablet aspirin, enteric coated (ASPIRIN, ENTERIC COATED) 81 mg EC tablet folic acid 1 mg tablet hydroCHLOROthiazide (HYDRODIURIL, ESIDRIX) 25 mg tablet sertraline hcl(ZOLOFT 50 MG TAB) Admission/Clinic Administered Medications as of 11/28/17: heparin 3,000 Units in NaCl 0.9% 500 mL PHENYLephrine 20 mg in NaCl 0.9% 250 mL (NEOSYNEPHRINE) PHENYLephrine 10 mg in NaCl 0.9% 250 mL (NEOSYNEPHRINE) EPINEPHrine 4 mg in NaCl 0.9% 250 mL insulin regular human 100 Units in NaCl 0.9% 100 mL aminocaproic acid 10 g in NaCl 0.9% 250 mL (AMicAR) dexmedetomidine 400 mcg in NaCl 0.9% 100 mL (PRECEDEX) NORepinephrine 16 mg in NaCl 0.9% 250 mL (LEVOPHED) nitroglycerin 100 mg in D5W 250 mL dextrose 50% in water 100 mL, insulin regular human 10 Units, potassium chloride 80 mEq, lidocaine 100 mg, magnesium sulfate 4 g in electrolyte-a (PLASMA-LYTE A) 1,000 mL solution dextrose 50% in water 50 mL, insulin regular human 5 Units, potassium chloride 20 mEq, lidocaine 50 mg, magnesium sulfate 2 g in electrolyte- a (PLASMA-LYTE A) 500 mL solution potassium chloride 26 mEq, magnesium sulfate 2 g, sodium bicarbonate 13 mEq, mannitol 20% 3.2 g, lidocaine (PF) 130 mg in electrolyte-a (PLASMA-LYTE A) 1,000 mL Problem List: Aortic valve stenosis [I35.0] Obesity, Class III, BMI >= 40 E66.01 [E66.01] Allergies: Cipro [Ciprofloxacin] Contrast Dye Humira [Adalimumab] Lantus [Insulin Glargine] Zithromax [Azithromycin] Date Verified: 11/28/17 Lab Values Lab Value Units Date High Low POTA* 4.8 mEq/L 11/23/2017 5.1 3.5 NGUYỄN* 36.7 % 11/23/2017 44.9 34.1 Progress Notes ([facility]): Nahed Machado CNP 11/25/2017 3:14 PM Sign at close encounter CTVS Surgery Pre-Op Open Heart Check List Patient Info: Graciela Brito 1950 67 year old Cipro [Ciprofloxacin]; Contrast Dye; Humira [Adalimumab]; Lantus [Insulin Glargine]; Zithromax [Azithromycin] Last set of vitals: Wt: 224 lb (101.6 kg) BMI: 48.47 kg/(m2) There were no vitals taken for this visit. Wt: 224 lb (101.6 kg) BMI: 48.47 kg/(m2) Procedure: AVR Diagnosis: Severe Date of Procedure: 11/28/2017 STS Risk Score: 1.289% CARE TEAM: Literacy Education Professor: [facility] PCP: N/A Other provider: N/A Pre-Op Testing: LABS: CBC, CMP, Mg, PT/INR, UA Not working Recent Labs 11/23/17 1200 INR 0.96 - not working Chemistry Na 141 K 4.8 Cl 104 CO2 33 Gluc 96 BUN 23 Cr. 0.96 Ca 9.1 Alb 3.8 TPROT 6.8 AST 17 ALT 18 Alk Phos 55 TBILI 0.2 Anion GAP 9 eGFR 58.01 Mag 2.2 WBC 6.57 RBC 3.73 Hgb 11.8 Hct 36.7 MCV 98.4 MCH 31.6 MCHC 32.2 RDW 13.1 RDW SD 46.7 Plt 220 MPV 10.7 Coag Recent Labs 11/23/17 1200 INR 0.96 - not working Type AND Cross A+ MRSA Screen: Negative HGA1C 5.7 PFT/ABG: Done, Results pending FEVI: DLCO: ABG: . IMAGING/PROCEDURES CXR: Enlarged heart, normal mediastinum, armando. Normal visualized pulmonary arteries. There is atherosclerotic calcification of the aortic arch with tortuosity. There are diffuse degenerative changes of the thoracic spine. There is degenerative osteoarthritis of the bilateral shoulders. Cardiac Catheterization: FROM [facility]: LV gram 65-75% Right Heart: CO 4.77 CI 2.51 PW 15 PA 39/11 24 RV 48/0 9 RA 11/4 3 PVR 151 SVR 1560 Aortic Valve Area 0.94 BRIANNA 0.49 Mean gradient 25.3 LM: Normal LAD: mild luminal irregularities less than 30% Cx: Mild luminal irregularities less than 30% RCA: Mild luminal irregularities less than 30% Valves: AV: mild calcifications, with severe , No AI 2D Echo: [facility] Heart EF: 65% RV: Mildly dilated LA: moderately enlarged RA: Normal MV: Moderate MAC TV: 5 Meter Walk Test: N/A OPTIONAL TESTINGS: Carotid U/S: N/A Lower EXT RONNA: N/A Palmar Arch: N/A Vein Mapping: N/A Dental Clearance: No acute dental infections CT Chest: 11/23/2017 IMPRESSION: 2 to 3 mm solitary pulmonary nodule at the right upper lobe. Depending on clinical ?risk factors for lung cancer, a follow-up chest CT could be obtained in 12 months. Otherwise, there is no acute process. ? Medications Notes: Blood thinners: Patient is on following blood thinners: Aspirin -Yes, dose 81 mg, stopped No Beta Noemi: Last dose of beta noemi taken: N/A CLEARANCES NEEDED Pulmonary: No GI: No Hematology: No Other: No Nahed Machado CNP Progress Notes ([facility]): Sophie Roberson CNP 11/17/2017 9:31 AM Signed Order signed. Thank you. Sophie Roberson CNP HISTORY PHYSICAL Observed: 11/16/2017 Status: COMPLETED Source: [place] 5:09 PM CLINIC OTHER CAMPUS REPOSITORY O ID: [id number] Author: Luke Lester Service: (none) Author Type: Physician Type: HANDP Filed: 11/16/2017 5:20 PM Note Text: CARDIOTHORACIC SURGERY CONSULT / HANDP SERVICE DATE: 11/16/2017 SERVICE TIME: 5:09 PM Subjective PRIMARY SERVICE: Cardiothoracic Surgery CHIEF COMPLAINT: aortic stenosis HPI: This is a 67 year old woman referred for evaluation of symptomatic moderately severe to severe aortic stenosis and for consideration for valve replacement. In past year she has had echocardiography demonstrating mild to moderate aortic stenosis. She is reestablished care with her chronometer tester and a more recent echo now shows moderately severe to severe aortic stenosis with peak velocity 3.8 m/s, mean gradient in the 30s, and valve area 0.84. She is now noticing exertional dyspnea and fatigue. She's also had some episodes of positional lightheadedness. Cardiac catheter is reveals trivial coronary artery disease. There is no history of rheumatic fever or endocarditis. There is no history of angina, infarction, or congestive heart failure. She is treated with methotrexate and plaque Wynell for rheumatoid arthritis. She has obstructive sleep apnea and is treated for this with positive pressure at night and is followed by a cinder block mason.. Patient is Able to Perform the Following Physical Activity: Walk a block or two on level ground (2.75 METs) Patient has the following medical comorbidities which might affect the perioperative course: - Patient is overweight related to excessive caloric intake. Body mass index is 48.47 kg/(m2). - Patient with sleep apnea and uses CPAP. - hypothyroidism PAST MEDICAL HISTORY Diagnosis Date - Aortic valve disorders ? followed by PCP - Central apnea - Diabetes mellitus without mention of complication Diabetes mellitus - Dyspnea - History of Sjogren's disease - Hypothyroidism - Mixed hyperlipidemia Hyperlipidemia - Myalgia and myositis, unspecified - Obesity (BMI 30-39.9) - Rheumatoid arthritis (HCC) - Rheumatoid arthritis(714.0) - Secondary pulmonary arterial hypertension (HCC) - Sicca syndrome (HCC) - Unspecified sleep apnea PAST SURGICAL HISTORY Procedure Laterality Date - CARDIAC CATH 10/26/2017 [facility] - DELIVERY ONLY , low cervical - REMOVAL GALLBLADDER Cholecystectomy - REMOVAL OF TONSILS,<12 Y/O Tonsillectomy - REVISE MEDIAN N/CARPAL TUNNEL SURG Carpal tunnel decomp - TOTAL ABDOM HYSTERECTOMY Hysterectomy, DIANDRA - TOTAL KNEE REPLACEMENT Right Knee replacement, total FAMILY HISTORY Problem Relation Age of Onset - positive [OTHER] Other Sister with MS - Cancer Mother - Coronary Artery Disease Father 63 from [place] - Cervical Cancer Sister - Coronary Artery Disease Brother 45 CABG - Cancer Brother Social History Substance Use Topics - Smoking status: Former Smoker Packs/day: 1.00 Years: 5.00 Types: Cigarettes Quit date: 11/16/1987 - Smokeless tobacco: Never Used Comment: quit 30 yrs ago - Alcohol use No (Not in a hospital admission) calcitriol (ROCALTROL) 0.25 mcg capsule Take 0.25 mcg by mouth 3 times a WEEK. methotrexate 2.5 mg tablet Take 2.5 mg by mouth every Tuesday. simvastatin (ZOCOR) 20 mg tablet Take 20 mg by mouth daily at bedtime. clonazePAM (KLONOPIN) 1 mg tablet Take 1 mg by mouth daily at bedtime. isosorbide mononitrate ER (IMDUR) 30 mg 24 hr tablet Take 30 mg by mouth once daily. levothyroxine (SYNTHROID) 50 mcg tablet Take 50 mcg by mouth once daily. hydroxychloroquine (PLAQUENIL) 200 mg tablet Take 400 mg by mouth once daily. lisinopril (ZESTRIL, PRINIVIL) 40 mg tablet Take 40 mg by mouth once daily. aspirin, enteric coated (ASPIRIN, ENTERIC COATED) 81 mg EC tablet Take 81 mg by mouth once daily. folic acid 1 mg tablet Take 1 mg by mouth once daily. hydroCHLOROthiazide (HYDRODIURIL, ESIDRIX) 25 mg tablet Take 25 mg by mouth once daily. sertraline hcl(ZOLOFT 50 MG TAB) Take one(1) tablet daily. gabapentin (NEURONTIN) 300 mg capsule oxyCODONE-acetaminophen (PERCOCET) 5-325 mg tablet traMADol (ULTRAM) 50 mg tablet insulin detemir(LEVEMIR 100 UNIT/ML SUB-Q) 26Units in the pm metformin hcl(GLUCOPHAGE 500 MG TAB) Take one(1) tablet twice daily. clidinium br/chlordiazepoxide(LIBRAX (WITH CLIDINIUM) 5 MG- 2.5 MG CAP) Take one(1) tablet four (4) times daily. rosuvastatin calcium(CRESTOR 10 MG TAB) Take one(1) tablet daily. NORTRIPTYLINE 10 MG CAP Take one(1) tablet at bedtime. lansoprazole(PREVACID 30 MG CAP) Take one(1) capsule daily. ALLERGIES Allergen Reactions - Cipro [Ciprofloxaci* Hives - Contrast Dye Hives - Humira [Adalimumab] Shortness of Breath - Lantus [Insulin Gla* Swelling - Zithromax [Azithrom* Hives REVIEW OF SYSTEMS: REVIEW OF SYSTEMS: GENERAL: Fever - No Chills - No Night sweats - No Changes in weight - No NEUROLOGICAL: Headaches - No Seizures - No Passing out - No History of stroke or mini-stroke - No Head injury or trauma - No Numbness, tingling or sensation of pins and needles - No HEAD, EYES, EARS, NOSE, AND THROAT: Changes in hearing - No Changes in vision - No Nose bleeds - No CARDIOVASCULAR: Chest pain or pressure - Yes occasional, mild Palpitations - No Valvular heart disease - Yes aortic stenosis High blood pressure - No Irregular heart rate - No Heart attack - No Heart failure - No High Cholesterol - Yes History of rheumatic fever - No History of Scarlet fever - No History of atrial fibrillation - No RESPIRATORY: Cough - No Wheezing - No Shortness of breath - No Shortness of breath with exertion - Yes Coughing up blood - No Asthma - No Bronchitis - No Blood clot in your lung - No GASTROINTESTINAL: Abdominal discomfort - No Nausea - No Vomiting - No Diarrhea - No Constipation - No Difficulty swallowing - No Pain with swallowing - No Stomach pain after eating - No Passing blood with bowel movement - No Black tarry stool - No History of stomach ulcers - No Acid reflux or heartburn - No GENITOURINARY: GENITOURINARY: EXTREMITY: Edema (swelling) - No Intermittent claudication (pain with walking) - No MUSCULOSKELETAL: Joint pain - No; treated for RA Joint swelling - No Back pain - No Muscle pain or ache - No Skin: Rash - No Lesions - No Sores - No Ulcers - No Tenderness - No Skin cancer - No HEMATOLOGY: Bleeding disorder - No Easy bruising - No Anemia - No Cancer - No Blood transfusions - No Blood clots - No ENDOCRINE: Diabetes - No Thyroid disorder - Yes PSYCHOLOGICAL: Depression - No Anxiety - No OTHER: Objective PHYSICAL EXAM: BP 118/60 (BP Site: Right Arm) Pulse 73 Resp 16 Ht 4' 9 (1.448 m) Wt 224 lb (101.6 kg) SpO2 97% BMI 48.47 kg/m2 Body surface area is 2.02 meters squared. STS RISK CALCULATOR: 1.8 AVR STS Calculator On examination, she appears well and is breathing comfortably. Vitals signs are BP 118/60 (BP Site: Right Arm) Pulse 73 Resp 16 Ht 4' 9 (1.448 m) Wt 224 lb (101.6 kg) SpO2 97% BMI 48.47 kg/m2. There is no JVD. No cervical or supraclavicular adenopathy is palpated. The chest is symmetrical without deformity. Breath sounds are clear bilaterally. The cardiac rhythm is regular. There is a rather high-pitched crescendo decrescendo systolic murmur radiating to the carotids. There are no rubs, gallops, or murmurs. The carotid, subclavian, and radial pulses are 2+ and equal bilaterally. The abdomen is soft and non-tender. There are no abdominal masses. There is no hepatojugular reflux. There is no pretibial edema. There is no clubbing or cyanosis. Lines, Drains, and Airways No matching active lines, drains, or airways @LDAASSESS(2::::8:)@ DATA: Diagnostic tests reviewed for today's visit: Cardiac Catheterization: see above ECHO: see above Assessment/Plan In summary, Graciela Brito is a 67-year-old woman experiencing exertional dyspnea and fatigue, occasional chest pressure, occasional positional dizziness who was found to have moderately severe to severe aortic stenosis involving trileaflet valve with normal left bladder function and no significant coronary artery disease I recommend she undergo aortic valve replacement with a bioprosthesis. The risks, benefits, and anticipated outcomes of the procedure; the risks and benefits of the alternatives to the procedure; and the roles and tasks of the personnel to be involved were discussed with the patient and she consents to the procedure and agrees to proceed. Surgery will be scheduled for the near future. Tests/Labs Ordered: 1. Chest CT Scan 2. Thyroid Function 3. PFT 4. Dental eval The risks, benefits, and anticipated outcomes of the procedure; the risks and benefits of the alternatives to the procedure; and the roles and tasks of the personnel to be involved were discussed with the patient and she consents to the procedure and agrees to proceed. These findings will be communicated back to the requesting provider electronically. SIGNATURE: Luke Lester MD PATIENT NAME: Graciela Brito DATE: November 16, 2017 TIME: 5:09 PM PAGER/CONTACT #: [id number] CNOV Observed: 11/16/2017 Status: COMPLETED Source: [place] 3:30 PM [facility] REPOSITORY Office Visit (AGVASACC) GRACIELA BRITO ([id number]) 1950 F Date Time Provider Department 11/16/17 3:30 PM LUKE LESTER During your visit today, we recorded the following information about you: Pulse Respiration Blood pressure Weight 73/minute 16/minute 118/60 101.6 kg Height 1.448 m Sophie Roberson CNP 11/16/2017 5:08 PM Addendum You have aortic stenosis which is moderate severity at this point, to further assess your condition, we would like you to have: 1. Pulmonary function test 2. Dental clearance, please fax the report to our office 3. CT scan of chest without contrast 4. Thyroid function test We will move forward with the surgery (tentatively 11/28) once we have all the requested images/results in place. Thanks. Please feel free to contact us if you have any questions: [phone]. Blossom Roberson [phone] Luke Lester MD 11/16/2017 5:20 PM Signed CARDIOTHORACIC SURGERY CONSULT / HANDamp;P SERVICE DATE: 11/16/2017 SERVICE TIME: 5:09 PM Subjective PRIMARY SERVICE: Cardiothoracic Surgery CHIEF COMPLAINT: aortic stenosis HPI: This is a 67 year old woman referred for evaluation of symptomatic moderately severe to severe aortic stenosis and for consideration for valve replacement. In past year she has had echocardiography demonstrating mild to moderate aortic stenosis. She is reestablished care with her chronometer tester and a more recent echo now shows moderately severe to severe aortic stenosis with peak velocity 3.8 m/s, mean gradient in the 30s, and valve area 0.84. She is now noticing exertional dyspnea and fatigue. She's also had some episodes of positional lightheadedness. Cardiac catheter is reveals trivial coronary artery disease. There is no history of rheumatic fever or endocarditis. There is no history of angina, infarction, or congestive heart failure. She is treated with methotrexate and plaque Wynell for rheumatoid arthritis. She has obstructive sleep apnea and is treated for this with positive pressure at night and is followed by a cinder block mason.. Patient is Able to Perform the Following Physical Activity: Walk a block or two on level ground (2.75 METs) Patient has the following medical comorbidities which might affect the perioperative course: - Patient is overweight related to excessive caloric intake. Body mass index is 48.47 kg/(m2). - Patient with sleep apnea and uses CPAP. - hypothyroidism PAST MEDICAL HISTORY Diagnosis Date - Aortic valve disorders ? followed by PCP - Central apnea - Diabetes mellitus without mention of complication Diabetes mellitus - Dyspnea - History of Sjogren's disease - Hypothyroidism - Mixed hyperlipidemia Hyperlipidemia - Myalgia and myositis, unspecified - Obesity (BMI 30-39.9) - Rheumatoid arthritis (HCC) - Rheumatoid arthritis(714.0) - Secondary pulmonary arterial hypertension (HCC) - Sicca syndrome (HCC) - Unspecified sleep apnea PAST SURGICAL HISTORY Procedure Laterality Date - CARDIAC CATH 10/26/2017 [facility] - DELIVERY ONLY , low cervical - REMOVAL GALLBLADDER Cholecystectomy - REMOVAL OF TONSILS,ANDlt;13 Y/O Tonsillectomy - REVISE MEDIAN N/CARPAL TUNNEL SURG Carpal tunnel decomp - TOTAL ABDOM HYSTERECTOMY Hysterectomy, DIANDRA - TOTAL KNEE REPLACEMENT Right Knee replacement, total FAMILY HISTORY Problem Relation Age of Onset - positive [OTHER] Other Sister with MS - Cancer Mother - Coronary Artery Disease Father 63 from [place] - Cervical Cancer Sister - Coronary Artery Disease Brother 45 CABG - Cancer Brother Social History Substance Use Topics - Smoking status: Former Smoker Packs/day: 1.00 Years: 5.00 Types: Cigarettes Quit date: 11/16/1987 - Smokeless tobacco: Never Used Comment: quit 30 yrs ago - Alcohol use No (Not in a hospital admission) calcitriol (ROCALTROL) 0.25 mcg capsule Take 0.25 mcg by mouth 3 times a WEEK. methotrexate 2.5 mg tablet Take 2.5 mg by mouth every Tuesday. simvastatin (ZOCOR) 20 mg tablet Take 20 mg by mouth daily at bedtime. clonazePAM (KLONOPIN) 1 mg tablet Take 1 mg by mouth daily at bedtime. isosorbide mononitrate ER (IMDUR) 30 mg 24 hr tablet Take 30 mg by mouth once daily. levothyroxine (SYNTHROID) 50 mcg tablet Take 50 mcg by mouth once daily. hydroxychloroquine (PLAQUENIL) 200 mg tablet Take 400 mg by mouth once daily. lisinopril (ZESTRIL, PRINIVIL) 40 mg tablet Take 40 mg by mouth once daily. aspirin, enteric coated (ASPIRIN, ENTERIC COATED) 81 mg EC tablet Take 81 mg by mouth once daily. folic acid 1 mg tablet Take 1 mg by mouth once daily. hydroCHLOROthiazide (HYDRODIURIL, ESIDRIX) 25 mg tablet Take 25 mg by mouth once daily. sertraline hcl(ZOLOFT 50 MG TAB) Take one(1) tablet daily. gabapentin (NEURONTIN) 300 mg capsule oxyCODONE-acetaminophen (PERCOCET) 5-325 mg tablet traMADol (ULTRAM) 50 mg tablet insulin detemir(LEVEMIR 100 UNIT/ML SUB-Q) 26Units in the pm metformin hcl(GLUCOPHAGE 500 MG TAB) Take one(1) tablet twice daily. clidinium br/chlordiazepoxide(LIBRAX (WITH CLIDINIUM) 5 MG- 2.5 MG CAP) Take one(1) tablet four (4) times daily. rosuvastatin calcium(CRESTOR 10 MG TAB) Take one(1) tablet daily. NORTRIPTYLINE 10 MG CAP Take one(1) tablet at bedtime. lansoprazole(PREVACID 30 MG CAP) Take one(1) capsule daily. ALLERGIES Allergen Reactions - Cipro [Ciprofloxaci* Hives - Contrast Dye Hives - Humira [Adalimumab] Shortness of Breath - Lantus [Insulin Gla* Swelling - Zithromax [Azithrom* Hives REVIEW OF SYSTEMS: REVIEW OF SYSTEMS: GENERAL: Fever - No Chills - No Night sweats - No Changes in weight - No NEUROLOGICAL: Headaches - No Seizures - No Passing out - No History of stroke or mini-stroke - No Head injury or trauma - No Numbness, tingling or sensation of pins and needles - No HEAD, EYES, EARS, NOSE, AND THROAT: Changes in hearing - No Changes in vision - No Nose bleeds - No CARDIOVASCULAR: Chest pain or pressure - Yes occasional, mild Palpitations - No Valvular heart disease - Yes aortic stenosis High blood pressure - No Irregular heart rate - No Heart attack - No Heart failure - No High Cholesterol - Yes History of rheumatic fever - No History of Scarlet fever - No History of atrial fibrillation - No RESPIRATORY: Cough - No Wheezing - No Shortness of breath - No Shortness of breath with exertion - Yes Coughing up blood - No Asthma - No Bronchitis - No Blood clot in your lung - No GASTROINTESTINAL: Abdominal discomfort - No Nausea - No Vomiting - No Diarrhea - No Constipation - No Difficulty swallowing - No Pain with swallowing - No Stomach pain after eating - No Passing blood with bowel movement - No Black tarry stool - No History of stomach ulcers - No Acid reflux or heartburn - No GENITOURINARY: GENITOURINARY: EXTREMITY: Edema (swelling) - No Intermittent claudication (pain with walking) - No MUSCULOSKELETAL: Joint pain - No; treated for RA Joint swelling - No Back pain - No Muscle pain or ache - No Skin: Rash - No Lesions - No Sores - No Ulcers - No Tenderness - No Skin cancer - No HEMATOLOGY: Bleeding disorder - No Easy bruising - No Anemia - No Cancer - No Blood transfusions - No Blood clots - No ENDOCRINE: Diabetes - No Thyroid disorder - Yes PSYCHOLOGICAL: Depression - No Anxiety - No OTHER: Objective PHYSICAL EXAM: BP 118/60 (BP Site: Right Arm) Pulse 73 Resp 16 Ht 4' 9ANDquot; (1.448 m) Wt 224 lb (101.6 kg) SpO2 97% BMI 48.47 kg/m2 Body surface area is 2.02 meters squared. STS RISK CALCULATOR: 1.8 AVR STS Calculator On examination, she appears well and is breathing comfortably. Vitals signs are BP 118/60 (BP Site: Right Arm) Pulse 73 Resp 16 Ht 4' 9ANDquot; (1.448 m) Wt 224 lb (101.6 kg) SpO2 97% BMI 48.47 kg/m2. There is no JVD. No cervical or supraclavicular adenopathy is palpated. The chest is symmetrical without deformity. Breath sounds are clear bilaterally. The cardiac rhythm is regular. There is a rather high-pitched crescendo decrescendo systolic murmur radiating to the carotids. There are no rubs, gallops, or murmurs. The carotid, subclavian, and radial pulses are 2+ and equal bilaterally. The abdomen is soft and non-tender. There are no abdominal masses. There is no hepatojugular reflux. There is no pretibial edema. There is no clubbing or cyanosis. Lines, Drains, and Airways No matching active lines, drains, or airways @LDAASSESS(2::::8:)@ DATA: Diagnostic tests reviewed for today's visit: Cardiac Catheterization: see above ECHO: see above Assessment/Plan In summary, Graciela Brito is a 67-year-old woman experiencing exertional dyspnea and fatigue, occasional chest pressure, occasional positional dizziness who was found to have moderately severe to severe aortic stenosis involving trileaflet valve with normal left bladder function and no significant coronary artery disease I recommend she undergo aortic valve replacement with a bioprosthesis. The risks, benefits, and anticipated outcomes of the procedure; the risks and benefits of the alternatives to the procedure; and the roles and tasks of the personnel to be involved were discussed with the patient and she consents to the procedure and agrees to proceed. Surgery will be scheduled for the near future. Tests/Labs Ordered: 1. Chest CT Scan 2. Thyroid Function 3. PFT 4. Dental eval The risks, benefits, and anticipated outcomes of the procedure; the risks and benefits of the alternatives to the procedure; and the roles and tasks of the personnel to be involved were discussed with the patient and she consents to the procedure and agrees to proceed. These findings will be communicated back to the requesting provider electronically. SIGNATURE: Luke Lester MD PATIENT NAME: Graciela Brito DATE: November 16, 2017 TIME: 5:09 PM PAGER/CONTACT #: [phone] [phone] Referring Provider: TAZ ALLEN [[id number]] Allergies As of Date: 11/16/2017 Noted Allergy Reaction CIPRO (CIPROFLOXACIN) 11/26/2008 4 - Hives CONTRAST DYE 01/01/2009 4 - Hives HUMIRA (ADALIMUMAB) 11/16/2017 12 - Shortness of Breath LANTUS (INSULIN GLARGINE) 01/01/2009 7 - Swelling ZITHROMAX (AZITHROMYCIN) 01/01/2009 4 - Hives Date Reviewed: 11/16/2017 Reviewed by: Cassius Reyes LPN - Fully Assessed Reason for Visit: Valvular Heart Disease [169] Cmt: Ref by Dr. Allen 10-26-17 Cath and 10-05-17 Echo Primary Visit Diagnosis:Aortic valve stenosis, etiology of cardiac valve disease unspecified [I35.0] Other Visit Diagnosis:Screening for nephropathy [Z13.89] Order(s):SPIROMETRY BASELINE ONLY [8268859] Order #: [id number] FUTURE TSH, REFLEX [[id number]] Order #: [id number] FUTURE CT CHEST WO IVCON [[id number]] Order #: [id number] FUTURE Prescriptions as of 11/16/2017 Sig: CALCITRIOL 0.25 MCG CAPSULE Take 0.25 mcg by mouth 3 time* METHOTREXATE SODIUM 2.5 MG TA* Take 2.5 mg by mouth every We* SIMVASTATIN 20 MG TABLET Take 20 mg by mouth daily at * CLONAZEPAM 1 MG TABLET Take 1 mg by mouth daily at b* ISOSORBIDE MONONITRATE ER 30 * Take 30 mg by mouth once nelia* LEVOTHYROXINE 50 MCG TABLET Take 50 mcg by mouth once walter* HYDROXYCHLOROQUINE 200 MG TAB* Take 400 mg by mouth once walter* LISINOPRIL 40 MG TABLET Take 40 mg by mouth once nelia* ASPIRIN 81 MG TABLET,DELAYED * Take 81 mg by mouth once nelia* FOLIC ACID 1 MG TABLET Take 1 mg by mouth once daily. HYDROCHLOROTHIAZIDE 25 MG TAB* Take 25 mg by mouth once nelia* * ZOLOFT 50 MG TABLET Take one(1) tablet daily. GABAPENTIN 300 MG CAPSULE OXYCODONE-ACETAMINOPHEN 5 MG-* TRAMADOL 50 MG TABLET * LEVEMIR U-100 INSULIN 100 UNI* 26Units in the pm * GLUCOPHAGE 500 MG TABLET Take one(1) tablet twice nelia* * LIBRAX (WITH CLIDINIUM) 5 MG-* Take one(1) tablet four (4) t* * CRESTOR 10 MG TABLET Take one(1) tablet daily. * NORTRIPTYLINE 10 MG CAPSULE Take one(1) tablet at bedtime. * PREVACID 30 MG CAPSULE,DELAYE* Take one(1) capsule daily. Medication notes this encounter GABAPENTIN 300 MG CAPSULE >> Cassius Amy PACKER DRIED BEEF 11/16/2017 3:46 PM >> AMY, CASSIUS PACKER DRIED BEEF TueNov 16, 2017 3:46 PM Not taking OXYCODONE-ACETAMINOPHEN 5 MG-325 MG TABLET >> Cassius Amy PACKER [employer]RI[employer] BEEF 11/16/2017 3:47 PM >> AMY, CASSIUS PACKER DRI[employer] BEEF TueNov 16, 2017 3:47 PM Not taking TRAMADOL 50 MG TABLET >> Cassius Amy PACKER [employer]RI[employer] BEEF 11/16/2017 3:47 PM >> AMY, CASSIUS PACKER DRIED BEEF TueNov 16, 2017 3:47 PM Not taking LEVEMIR U-100 INSULIN 100 UNIT/ML SUBCUTANEOUS SOLUTION >> Cassius Amy PACKER DRI[employer] BEEF 11/16/2017 3:47 PM >> AMY, CASSIUS PACKER DRIED BEEF TueNov 16, 2017 3:47 PM Not taking GLUCOPHAGE 500 MG TABLET >> Cassius Amy PACKER DRIED BEEF 11/16/2017 3:29 PM >> AMY, CASSIUS PACKER DRIED BEEF TueNov 16, 2017 3:29 PM Not taking LIBRAX (WITH CLIDINIUM) 5 MG-2.5 MG CAPSULE >> Cassius Amy PACKER DRIED BEEF 11/16/2017 3:46 PM >> AMY, CASSIUS PACKER DRIED BEEF TueNov 16, 2017 3:46 PM Not taking CRESTOR 10 MG TABLET >> Cassius Amy PACKER DRIED BEEF 11/16/2017 3:29 PM >> AMY, CASSIUS PACKER DRIED BEEF TueNov 16, 2017 3:29 PM Not taking NORTRIPTYLINE 10 MG CAPSULE >> Cassius Amy PACKER DRI[employer] BEEF 11/16/2017 3:29 PM >> AMY, CASSIUS PACKER DRIED BEEF TueNov 16, 2017 3:29 PM Not taking PREVACID 30 MG CAPSULE,DELAYED RELEASE >> Cassius Amy PACKER DRIED BEEF 11/16/2017 3:47 PM >> AMY, CASSIUS PACKER DRIED BEEF TueNov 16, 2017 3:47 PM Not taking Problem List As Of Date: 11/16/2017 (None) Other instructions from your clinician: You have aortic stenosis which is moderate severity at this point, to further assess your condition, we would like you to have: 1. Pulmonary function test 2. Dental clearance, please fax the report to our office 3. CT scan of chest without contrast 4. Thyroid function test We will move forward with the surgery (tentatively 11/28) once we have all the requested images/results in place. Thanks. Please feel free to contact us if you have any questions: [phone]. Blossom Da [phone] Level of Service: NEW PATIENT VISIT LEVEL 5 [72452] Letter Text Encounter Status:Closed by LUKE LESTER MD on 11/16/17 BLOOD GASES BY CPS Collected: 10/26/2017 Status: F Source: [place] 11:50 AM [facility] REPOSITORY TYPE CODE TESTS RESULT OUT OF RANGE REFERENCE UNITS LAB L9000.9990 Normal BLD GAS ART TYPE LAB L9001.1110 7.35-7.45 Normal pH - 7.37 I-STAT LAB L9001.1210 35-45 mmHg High pCO2 - 45.8 ISTAT LAB L9001.1310 75-100 mmHG Normal PO2 81 I-STAT LAB L9001.2300 22-26 mmol/L High HCO3 26.7 ISTAT LAB L9001.2400 -2 to +2 mmol/L Normal BE ISTAT 1 LAB L9001.2415 mmol/L Normal TOTAL CO2 28 ISTAT LAB L9001.2425 95-99 % Normal SO2 ISTAT 96 Performed By: #### L9000.0800 #### [facility] Point of Care [facility] [address] [place], [place] [address] VENOUS BLOOD GAS Collected: 10/26/2017 Status: F Source: [place] 11:44 AM [facility] REPOSITORY TYPE CODE TESTS RESULT OUT OF RANGE REFERENCE UNITS LAB L9000.9990 Normal BLD GAS HENNA TYPE LAB L9002.1110 7.32-7.42 High VBGpH - 7.44 I-STAT LAB L9002.1212 41-51 mmHg Normal VBG pCO2 41.1 - ISTA LAB L9002.1310 25-40 mmHg High VBG PO2 41 I-STAT LAB L9002.2300 22-26 mmol/L High VBG HCO3 28 ISTAT LAB L9002.2400 -1.0-3.5 mmol/L Normal VBG BE 3 ISTAT LAB L9002.2410 50-70 % High VBG SO2 78 ISTAT LAB L9002.2415 23-33 mmol/L Normal VBG O2 CT 29 ISTAT Performed By: #### L9000.0810 #### [facility] Point of Care [address] [place] [id number] VENOUS BLOOD GAS Collected: 10/26/2017 Status: F Source: [place] 11:41 AM [facility] REPOSITORY TYPE CODE TESTS RESULT OUT OF RANGE REFERENCE UNITS LAB L9000.9990 Normal BLD GAS HENNA TYPE LAB L9002.1110 7.32-7.42 High VBGpH - 7.45 I-STAT LAB L9002.1212 41-51 mmHg Normal VBG pCO2 42.6 - ISTA LAB L9002.1310 25-40 mmHg Normal VBG PO2 40 I-STAT LAB L9002.2300 22-26 mmol/L High VBG HCO3 30 ISTAT LAB L9002.2400 -1.0-3.5 mmol/L High VBG BE 5 ISTAT LAB L9002.2410 50-70 % High VBG SO2 77 ISTAT LAB L9002.2415 23-33 mmol/L Normal VBG O2 CT 31 ISTAT Performed By: #### L9000.0810 #### [facility] Point of Care [address] [place] [id number] VENOUS BLOOD GAS Collected: 10/26/2017 Status: F Source: [place] 11:37 AM [facility] [place] REPOSITORY TYPE CODE TESTS RESULT OUT OF RANGE REFERENCE UNITS LAB L9000.9990 Normal BLD GAS HENNA TYPE LAB L9002.1110 7.32-7.42 High VBGpH - 7.47 I-STAT LAB L9002.1212 41-51 mmHg Low VBG pCO2 40.5 - ISTA LAB L9002.1310 25-40 mmHg High VBG PO2 44 I-STAT LAB L9002.2300 22-26 mmol/L High VBG HCO3 29 ISTAT LAB L9002.2400 -1.0-3.5 mmol/L High VBG BE 6 ISTAT LAB L9002.2410 50-70 % High VBG SO2 83 ISTAT LAB L9002.2415 23-33 mmol/L Normal VBG O2 CT 31 ISTAT Performed By: #### L9000.0810 #### [facility] Point of Care [address] [place] [address] VENOUS BLOOD GAS Collected: 10/26/2017 Status: F Source: [place] 11:33 AM [facility] REPOSITORY TYPE CODE TESTS RESULT OUT OF RANGE REFERENCE UNITS LAB L9000.9990 Normal BLD GAS HENNA TYPE LAB L9002.1110 7.32-7.42 High VBGpH - 7.44 I-STAT LAB L9002.1212 41-51 mmHg Normal VBG pCO2 41.5 - ISTA LAB L9002.1310 25-40 mmHg High VBG PO2 41 I-STAT LAB L9002.2300 22-26 mmol/L High VBG HCO3 28 ISTAT LAB L9002.2400 -1.0-3.5 mmol/L High VBG BE 4 ISTAT LAB L9002.2410 50-70 % High VBG SO2 79 ISTAT LAB L9002.2415 23-33 mmol/L Normal VBG O2 CT 30 ISTAT Performed By: #### L9000.0810 #### [facility] Point of Care [address] [place] [address] CHEST PA AND LATERAL Observed: 10/18/2017 Status: F Source: [place] 4:24 PM [facility] REPOSITORY [facility] Imaging Services [address] [place] [address] Chest PA and Lateral MR#: [id number] Acct: [id number] Name: GRACIELA BRITO Rep #: [id number] : 1950 F 67 From: Jeffrey Hardy MD PCP: Bird Garza MD Status: PRE KSC Study: Chest PA and Lateral Date of Exam: 10/18/17 Exam# [id number] Ordering Dr: Taz Allen MD STUDY: X-RAY CHEST REASON FOR EXAM: Female, 67 years old. DYSPNEA TECHNIQUE: Frontal and lateral views of the chest. COMPARISON: August 30, 2016 FINDINGS: Chronic appearing increased interstitial lung markings. There is no demonstrated pleural abnormality. Enlarged heart size. Normal mediastinum and armando. Normal visualized pulmonary arteries. There is atherosclerotic calcification of the aortic arch with tortuosity. There are diffuse degenerative changes of the visualized thoracic spine. There is degenerative osteoarthritis of the bilateral shoulders. There is no demonstrated abnormality of the visualized soft tissue structures of the upper abdomen. RAD/Chest PA and Lateral IMPRESSION: There are no acute findings. Electronically Signed: Jeffrey Hardy MD at 17:11 EST , Service support , CC: Taz Allen MD; Bird Garza MD Interventional Pain Physician: Signed CBC W/DIFF, AUTOMATED Collected: 10/18/2017 Status: F Source: [place] 4:23 PM [facility] REPOSITORY TYPE CODE TESTS RESULT OUT OF RANGE REFERENCE UNITS LAB L100.1000 4.4-11.0 K/mm3 Normal WBC 9.3 LAB L100.1200 4.2-5.4 M/mm3 Low RBC 3.90 LAB L100.1300 12.0-15.0 g/dl Normal HGB 12.5 LAB L100.1400 37-47 % Normal HCT 39.0 LAB L100.1500 81-99 fL High MCV 100.0 LAB L100.1600 27.0-32.0 pg High MCH 32.1 LAB L100.1700 32-36 g/gl Normal MCHC 32.1 LAB L100.1810 11.6-14.6 % Normal RDW CV 13.8 LAB L100.1820 35.1-43.9 fl High RDW SD 49.3 LAB L100.1900 150-450 K/mm3 Normal PLT 241 LAB L100.2000 6.2-12.0 fl Normal MPV 10.4 LAB L100.2100 47-70 % Normal NEUT% 67.1 LAB L100.2200 19-41 % Normal LY% 24.0 LAB L100.2300 0-10 % Normal MONO% 6.7 LAB L100.2400 0-5 % Normal EO% 0.9 LAB L100.2500 0-1 % High BASO% 1.1 LAB L100.2550 0.0-0.9 % Normal IM GRAN % 0.200 Result Comment: IG% - Immature Granulocytes (promyelocytes, myelocytes and metamyelocytes) > 1% indicates that a LEFT SHIFT is Present. LAB L100.2620 2.0-7.7 X10 3/uL Normal Absolute Neut 6.2 LAB L100.2720 0.83-4.51 X10 3/ul Normal Absolute Lymph 2.22 Performed By: #### L100.0100, L300.3900, L500.2500 #### [facility] [address] [facility] [place], [place], [address] PROTHROMBIN TIME W/INR Collected: 10/18/2017 Status: F Source: [place] 4:23 PM [facility] REPOSITORY TYPE CODE TESTS RESULT OUT OF RANGE REFERENCE UNITS LAB L300.4150 11.7-14.9 SECONDS Normal PROTIME 12.4 LAB L300.4200 Normal INR 1.0 Performed By: #### L100.0100, L300.3900, L500.2500 #### [facility] [address] [facility] [place], [place], [address] BASIC METABOLIC Collected: 10/18/2017 Status: F Source: [place] PROFILE (BMP) 4:23 PM [facility] REPOSITORY TYPE CODE TESTS RESULT OUT OF RANGE REFERENCE UNITS LAB L501.0100 70-110 mg/dL High GLU 124 Result Comment: Fasting Glucose result from 110 to <126 mg/dL suggests IMPAIRED HOMEOSTASIS per A.D.A. criteria. LAB L501.1000 7-18 mg/dL High BUN 28 LAB L501.1100 0.55-1.02 mg/dL High CREAT,SERUM 1.08 Result Comment: The validity of the calculated GFR AND GFRAA in patients over 70 years has not been determined. Clinical correlation is essential. LAB L501.1110 >60 mL/min Low EST GFR 54 Result Comment: Non- GFR Calc LAB L501.1115 >60 mL/min Normal EST GFR - AA 65 Result Comment: GFR Calc LAB L501.1300 10-20 RATIO High BUN/CRE 25.9 LAB L501.2200 8.5-10.1 mg/dL CA Normal 9.3 LAB L501.5300 136-145 mmol/L NA Normal 142 LAB L501.5600 3.5-5.1 mmol/L K Normal 4.0 LAB L501.5900 98-107 mmol/L CL Normal 105 LAB L501.6100 21.0-32.0 mmol/L Normal CO2 29.0 LAB L501.6200 5-15 Normal GAP 8 Performed By: #### L100.0100, L300.3900, L500.2500 #### [facility] [address] [place], [address] CARDIOLOGY VISIT Observed: 10/18/2017 Status: F Source: [place] REPORT 3:51 PM [facility] REPOSITORY [facility] [address] [place] [address] OFFICE VISIT Date of Service: 10/18/17 MR#: [id number] Acct: [id number] Name: GRACIELA BRITO Rep #: [id number] : 1950 Provider: Taz Allen MD Age/Sex: 67/F Location: [facility] Status: Signed HPI review echo per PK: Chief Complaint: Routine follow-up Details: Referring physician Dr. Bird Garza Mrs. Brito is a very pleasant 67-year-old morbidly obese, nonsmoking female, smoked about 3 years as a teenager, borderline diabetic had been on diabetic medicines in the past, with a known history of mild aortic stenosis. The patient has seen Dr. Villalobos in the past, and wanted to reestablish care. Patient was found to have an aortic valvular murmur by her PCP and was referred to our office for evaluation. Specifically the patient has had nonexercise stress test, the last one being on 06/17/14 which was negative for inducible ischemia. She is had several catheterizations most recent of which was 05/21/[address] Villalobos at [facility]. At that time she basically had no significant coronary disease and a normal LVEF. She's had several echoes the most recent of which was 06/17/14 which showed mild aortic stenosis with a peak and mean gradient of 38/23 mmHg giving an estimated DANA of 1.2 cm . Repeat echocardiogram dated 03/16/16 showed an EF of 65% and an DANA of 1.0 cm , with a peak/mean gradient of 51/28 mmHg, and RVSP of 21 mmHg.. Her mean mitral gradient was 1.8 mm Hg giving an estimated MVA of 2.7 cm . Her EF was 65% and RVSP was estimated to be 30 mmHg. At her last visit, the patient reporteddecreased exercise capacity over the several months.She has had no syncopal episodes. She has a strong positive family history with a myocardial infarction in her brother at age 45 who required CABG, and in her father at age 63 who of [place]. she underwent left her catheterization and 09/22/16 which demonstrated mild nonobstructive coronary disease, mild pulmonary hypertension by right heart cath, and moderate aortic stenosis by peak to peak pullback. Patient had severe hypertension was treated with isosorbide, lisinopril and HCTZ and is now here in follow-up. She has a known history of sleep apnea, but recently underwent repeat sleep study and was found require adjustments to her bilevel settings. This is being managed by Dr. Bales. since her last visit she feels much better after having her BiPAP adjusted. She has some diffuse myalgias in both calves after taking her Zocor at night and is already on vitamin D. She denies any presyncope, syncope, change in her exercise capacity, shortness of breath or dyspnea on exertion. Patient reports today that over the last several months, to the last year the patient has had progressively worsening dyspnea on exertion, shortness of breath, increasing fatigue, positional lightheadedness/dizziness, but no anginal symptoms. We repeated her echocardiogram on 10/05/17 which showed preserved LV function with an EF of 65%, stage II diastolic dysfunction, RVSP increased from 20-34 mmHg, peak/mean gradient of 58/33 mmHg, and a calculated estimated aortic valvular area by continuity equation of 0.8 cm . No, he is an outpatient. He is coming in for rehydration. In office today her blood pressure is 112/64 and pulse is 74 and regular. Her physical exam demonstrates bilateral carotid bruits, most likely radiating from her aortic valvular stenosis, 1+ carotid upstroke bilaterally with aortic murmur to both carotids, regular rate and rhythm with a 3/6 systolic murmer radiating to the upper left sternal border. She has no diastolic murmurs that I can detect. Her EKG Previously demonstrated normal sinus rhythm, normal axis, normal intervals, poor R-wave progression across the precordium which may be secondary to lead misplacement. Low-voltage In the precordial leads. Repeat EKG is pending. Above summa question Lipids as of 03/30/16 show an LDL of 69, and HDL of 47. lipids as of 10/07/16 show an LDL of 54 and HDL of 59. EKG At our last visit demonstrates normal sinus rhythm with poor R-wave progression across precordium which may be secondary to lead misplacement, as well as low voltage in the precordial leads. No acute changes noted. repeat echo is pending. Lipids as of 10/07/16 showed an LDL of 54 and an HDL of 59. Carotid duplex dated02/02/17 showed less than 50% bilateral carotid stenosis. Intake Vital Signs10/18/17 Height 4 ft 9 in 10/18/17 Weight: 226 lb 10/18/17 Body Mass Index (BMI) 48.9 10/18/17 Blood Pressure 112/64 10/18/17 Respiratory Rate 18 10/18/17 Pulse Rate 74 Intake Visit Reasons: review echo per PK Allergies ciprofloxacin [From Cipro] Allergy (Verified 10/18/17 15:21) Unknown ciprofloxacin HCl [From Cipro] Allergy (Verified 10/18/17 15:21) Unknown insulin glargine, human recombin. a [From Lantus] Allergy (Verified 10/18/17 15:21) Unknown iodine Allergy (Verified 10/18/17 15:24) Hives Medications Aspirin E.C. [Ecotrin] 81 mg PO DAILY@0800 09/21/16 [History Confirmed 10/18/17] Folic Acid 1 mg PO DAILY 09/21/16 [History Confirmed 10/18/17] Hydroxychloroquine [Plaquenil] 400 mg PO DAILY 09/21/16 [History Confirmed 10/18/17] Levothyroxine Sodium 50 mcg PO DAILY 09/21/16 [History Confirmed 10/18/17] Simvastatin [Zocor] 20 mg PO QHS 09/21/16 [History Confirmed 10/18/17] Clonazepam [Klonopin] 1 mg PO QHS 07/18/17 [History Confirmed 10/18/17] Docusate Sodium [Colace] 100 mg PO DAILY #20 cap 07/18/17 [Rx Confirmed 10/18/17] Methotrexate [Methotrexate] 20 mg PO WE 07/18/17 [History Confirmed 10/18/17] Sertraline HCl [Zoloft] 50 mg PO DAILY 07/18/17 [History Confirmed 10/18/17] hydrochlorothiazide 25 mg tablet 25 mg PO DAILY #90 tab 09/20/17 [Rx] isosorbide mononitrate ER 30 mg tablet,extended release 24 hr 30 mg PO DAILY #90 tab 09/20/17 [Rx Confirmed 10/18/17] lisinopril 40 mg tablet 40 mg PO DAILY #90 tab 09/20/17 [Rx Confirmed 10/18/17] [facility] Medical History Secondary pulmonary arterial hypertension (Chronic) Dyspnea (Chronic) Obesity (BMI 30.0-34.9) (Chronic) Central apnea (Chronic) Non-rheumatic aortic stenosis (Chronic) History of Sjogren's disease (Chronic) Hypothyroidism (Chronic) Rheumatoid arthritis (Chronic) Type 2 diabetes mellitus without complications (Chronic) Surgical History Bilateral carpal tunnel syndrome (Chronic) History of partial hysterectomy (Chronic) History of right and left heart catheterization (Chronic 09/22/16) History of right knee joint replacement (Chronic) History of tonsillectomy (Chronic) Hx of cholecystectomy (Chronic) Family History Brother CAD (coronary artery disease) CABG age 45 Father CAD (coronary artery disease) from [place] age 63 Social History Smoking Status: Former smoker ROS Const Const: Positive for fatigue; negative for weakness, difficulty sleeping, frequent falls, headache(s) or excessive sweating Eyes Eyes: Negative for loss of peripheral vision, transient loss of vision, blurry vision or double vision ENT ENT: Negative for Nosebleed/epistaxis, Negative for balance problems, Negative for dizziness, Negative for headache(s) Cardio Chest Pain: No Edema: None Muscle aches with walking: None Resp Respiratory: Positive for SOB with activity; negative for SOB at rest, SOB orthopnea\SOB lying down or paroxysmal nocturnal dyspnea GI GI: Negative nausea or heartburn : Negative for hematuria Musc Musc: Negative for muscle aches/ myalgia, muscle weakness, joint pain or balance problems Skin Skin: Negative non-healing lesions, unusual bruising or rash Neuro Neuro: Negative for blurry vision, Negative for dizziness, Positive for lightheadedness, Negative for orthostatic symptoms, Negative for double vision, Negative for weakness, Negative for frequent falls, Negative for headache(s) Nguyễn Hematologic/Lymphatic: Negative for easy bruising Endo Endo: Positive for fatigue; negative for excessive sweating or increased thirst/drinking Psych Psych: Negative for anxiety or depression Allergy Allergy/Immunology: Negative for hives, Negative for rash Cardiology Exam Const Appearance: cooperative, healthy appearing and no acute distress Nutritional Appearance: well nourished Orientation: alert, oriented x3 and oriented to person Head Head: normal to inspection, atraumatic and normocephalic Nose: external nose normal Face and Sinus: face symmetric Mouth: oral mucosae normal Eyes General: appearance normal, both eyes and all related structures Eyelids: eyelids normal Conjunctivae: conjunctivae normal Pupils: PERRL and normal by confrontation EOM: EOM intact bilaterally Neck Neck: normal visual inspection and full ROM Carotids: normal carotid upstroke Chest Chest inspection: normal inspection of the chest Auscultation: Bilateral: Clear to Auscultation Cardio Palpation: normal PMI Rate: regular rate Rhythm: regular rhythm Heart sounds: S2 normal Murmur: crescendo-decrescendo and Grade 3/6 GI GI: normal to inspection, no hepatosplenomegaly and bowel sounds present Neuro General: alert, oriented x3, awake, CN's II-XI intact bilaterally and moves all extremities Skin Skin: no rashes or lesions noted Extremities Pulses: Normal: Right Femoral Pulse, Left Femoral Pulse, Right Dorsalis Pedis Pulse, Left Dorsalis Pedis Pulse, Right Posterior Tibial Pulse, Left Posterior Tibial Pulse, Right Radial Pulse, Left Radial Pulse Lower Extremity Edema: None: Bilateral Psych Psychological: normal affect Assessment AND Plan Plan 1. Aortic stenosis: The patient has signs and symptoms of progressively worsening aortic stenosis as evidenced by her dyspnea on exertion, increasing fatigue, positional lightheadedness, and worsening pulmonary pressures. Although her LV function is preserved, I would like to pursue aortic valve replacement sooner rather than later given her symptomatology and worsening pulmonary pressures. I recommended the patient undergo a repeat left and right heart catheterization as it is been over a year since her last one, I do not believe she requires repeat KERMIT at this time. I am uncertain whether the patient is a candidate for Xin procedure given her young age, but we will look into this prior to making an official recommendation of either surgical or percutaneous aortic valve replacement. In the meantime she will continue her current dose of medication of baby aspirin, hydrochlorothiazide, Imdur, lysine Prill. 2. Hyperlipidemia: LDL and HDL cholesterol are at goal. Continue Zocor. 3. Return office in 6 months This note was generated using a voice recognition system and there may be incorrect words, spelling or punctuation that were not noted when reviewing the office note prior to saving. Orders Orders: Medications Discontinued: hydrocodone-acetaminophen 5-325 mg Discon1 - 2 tabs PO Q4H PRN PRN Pain Jocelyn Killevi tinued Reason: Pt no longer taking Plan Detail Follow Up 6 Months (Alejandro) Coding Level of Care Code Off vis,est,level 3 10/18/17 9474 <Electronically signed by Taz Allen MD> Date Taz Allen MD Cosigner Signature: Date (if applicable) CC: 12 LEAD EKG PERFORMED Observed: 10/18/2017 Status: F Source: [place] BY ARISTEO 3:51 PM [facility] REPOSITORY [facility] [address] [place] [address] 12 Lead EKG performed by ARISTEO 10/18/17 0570 MR#: [id number] Acct: [id number] Name: GRACIELA BRITO Rep #: [id number] : 1950 67 From: Taz Allen MD Attending Dr: Taz Allen MD Status: DEP AMB Ordering Dr: Taz Allen MD Date: 10/18/17 Location: [facility] Sex: F C Admitted: BMS/12 Lead EKG performed by [facility] ECG Report Interpretation Sinus Rhythm Low voltage in precordial leads. -Old anteroseptal infarct. ABNORMAL Electronically signed on 11/07/2017 at 13:55 by Taz Allen 11/07/17 1358 Date Taz Allen MD CC: Bird Garza MD Date Dictated: 10/18/17 1550 Date Transcribed: 10/18/17 1550 Interventional Pain Physician: Signed ALLERGIES ALLERGIES DATE TYPE / CODE NAME / CODE REACTION SEVERITY SOURCE Drug ciprofloxacin Unknown Unknown [place] 9 Allergy/430688986( HCl/E179277061(RXN Community SNOMED CT) OR) Hospital Repository Drug insulin glargine, Unknown Unknown [place] 9 Allergy/646079245( human recombin. Community SNOMED CT) a/H089882370(RXNOR Hospital ) Repository Drug iodine/K868882083( Hives Unknown [place] 9 Allergy/317191195( RXNORM) Community SNOMED CT) Hospital Repository Drug prednisone/[id number] Visual SV [place] 9 Allergy/875341981( 164(RXNORM) changes, Community SNOMED CT) glaucoma Hospital Repository Drug amiodarone/K356324 Unknown Unknown [place] 9 Allergy/552764319( 484(RXNORM) [facility] SNOMED CT) Hospital Repository Drug diltiazem/S3876305 dizziness [place] 9 Allergy/321477028( 14(RXNORM) Community SNOMED [facility]) Hospital Repository Miscellaneous benjamin Neck pain SV [place] 8 Allergy/757562631( tingling Community SNOMED CT) Hospital Repository DRUG AMIODARONE OTHER: SEE C [place] 8 INGREDI/386329619( Clinic Other SNOMED CT) [place] Repository DRUG DILTIAZEM OTHER: SEE C [place] 8 INGREDI/757041803( Clinic Other SNOMED CT) [place] Repository DRUG PREDNISONE OTHER: SEE [facility] 8 INGREDI/079369551( Clinic Other SNOMED CT) [place] Repository Drug ciprofloxacin/F006 Unknown Unknown [place] 8 Allergy/878456707( 916332(RXNORM) Community SNOMED CT) Hospital Repository DRUG ADALIMUMAB SHORTNESS OF [place] 8 INGREDI/648994622( Clinic Other SNOMED CT) [place] Repository DRUG CONTRAST DYE [facility] 9 INGREDI/118909179( Clinic Other SNOMED CT) [place] Repository DRUG INSULIN GLARGINE [facility] 9 INGREDI/065844323( Clinic Other SNOMED CT) [place] Repository DRUG AZITHROMYCIN [facility] 9 INGREDI/912140386( Clinic Other SNOMED CT) [place] Repository DRUG CIPROFLOXACIN [facility] 9 INGREDI/348894838( Clinic Other SNOMED CT) [place] Repository NG/227103672(SNOME AMIODARONE [facility]) [facility] System Repository NG/903306679(SNOME DILTIAZEM [facility]) Health System Repository NG/128423961(SNOME PREDNISONE [facility]) [facility] System Repository NG/304858710(SNOME CIPROFLOXACIN [facility] D [facility]) [facility] System Repository NG/446798618(SNOME CONTRAST DYE [facility]) [facility] Repository NG/740674417(SNOME ADALIMUMAB [facility]) [facility] System Repository NG/090972816(SNOME INSULIN GLARGINE [facility]) [facility] System Repository NG/160325738(SNOME AZITHROMYCIN [facility] D [facility]) Health System Repository ENCOUNTERS ENCOUNTERS ADMIT/DISCHARGE ACCOUNT NUMBER ADMITTING ENCOUNTER LOCATION SOURCE CLASS 10/10/2018 [id number] Ambulatory BMSBuilding: [place] BMS.CF.WHG [facility] Hospital Repository 10/09/2018/10/10/19 [id number] Ambulatory [place] [facility] ding:CLSPRoo Repository m: DAE724 09/27/2018 [id number] Ambulatory BMSBuilding: [place] BMS.CF.[facility] Repository 09/27/2018 [id number] Ambulatory [facility] ding:CVS Repository 09/25/2018 [id number] [facility] 09/25/2018/09/25/19 [id number] Ambulatory BMSBuilding: [place] 19 BMS.[facility] Repository 09/25/2018/09/25/19 [id number] Ambulatory BMSBuilding: [place] 19 BMS.[facility] Repository 09/20/2018 [id number] Ambulatory [facility] ding:LAB Repository 09/07/2018/09/08/20 [id number] Emergency [place] ding:ED Repository 09/04/2018 [id number] Ambulatory [facility] ding:LAB Repository 08/24/2018/08/24/20 [id number] Ambulatory [address] Repository 08/24/2018/08/24/20 [id number] Ambulatory [address] MEDICAL Repository CENTERBuildi ng:AGCARDPHR A 08/22/2018/08/22/20 [id number] [place] ding:LAB Repository 08/09/2018 [id number] Ambulatory BMSBuilding: [place] [facility] Repository 08/08/2018/08/18/20 [id number] Ambulatory [place] ding:LAB Repository 07/14/2018/07/14/20 [id number] Ambulatory [address] ding:LAB Repository 06/28/2018 [id number] Ambulatory [facility] ding:CVS Repository 06/28/2018 [id number] Ambulatory BMSBuilding: [place] [facility] Repository 06/27/2018/06/27/20 [id number] Ambulatory BMSBuilding: [place] 18 BMS.[facility] Repository 06/26/2018/06/26/20 [id number] Emergency [place] [facility] ding:ED Repository 06/09/2018/06/20/20 [id number] Ambulatory [place] [facility] ding:LAB Repository 05/12/2018/05/12/20 [id number] Ambulatory [place] [facility] ding:LAB Repository 05/11/2018/05/11/20 [id number] Ambulatory BMSBuilding: [place] 18 BMS.[facility] Repository 04/25/2018 [id number] Ambulatory [facility] ding:PSN Repository 04/25/2018 [id number] Ambulatory BMSBuilding: [place] [facility] Repository 04/24/2018/04/28/20 [id number] [place]ulatory [place] [facility] ding:CR Repository 04/17/2018/04/18/20 [id number] Ambulatory [place] [facility] ding:CR Repository 04/17/2018/04/17/20 [id number] Ambulatory BMSBuilding: [place] 18 BMS.[facility] Repository 04/10/2018/04/10/20 [id number] Ambulatory BMSBuilding: [place] 18 BMS.[facility] Repository 04/07/2018 [id number] Ambulatory [facility] ding:LAB Repository 04/07/2018 [id number] Ambulatory BMSBuilding: [place] [facility] Repository 03/31/2018/03/31/20 [id number] Ambulatory [place] [facility] ding:LAB Repository 03/31/2018 [id number] Ambulatory BMSBuilding: [place] BMS.[facility] Repository 03/30/2018 [id number] Ambulatory [facility] ding:CVS Repository 03/30/2018 [id number] Ambulatory BMSBuilding: [place] [facility] Repository 03/20/2018 [id number] Ambulatory [facility] ding:LAB Repository 03/20/2018/03/20/20 [id number] Ambulatory BMSBuilding: [place] 18 BMS.[facility] Repository 03/15/2018/03/15/20 [id number] Ambulatory [place] [facility] ding:LAB Repository 03/15/2018/03/15/20 [id number] Ambulatory BMSBuilding: [place] 18 BMS.[facility] Repository 03/15/2018/03/18/20 [id number] Ambulatory [place] [facility] ding:CR Repository 02/16/2018 [id number] Ambulatory BMSBuilding: [place] BMS.[facility] Repository 02/15/2018/02/17/20 [id number] Ambulatory [place] [facility] ding:CR Repository 02/15/2018/02/16/20 [id number] Ambulatory [place] [address] [place] [address] ding:LAB Repository 02/06/2018 [id number] [facility] [place] [facility] ding[facility] Repository 01/16/2018/01/17/20 [id number] Ambulatory [place] [facility] ding:CR Repository 01/16/2018/01/17/20 [id number] Ambulatory [place] [facility] ding:LAB Repository 12/30/2017/12/31/19 [id number] Ambulatory BMSBuilding: [place] 18 BMS.[facility] Repository 12/29/2017/12/30/19 [id number] Ambulatory [address] Other [place] Repository 12/29/2017/12/30/19 [id number] Ambulatory [address] MEDICAL Repository CENTERBuildi ng:AGVASACC 12/29/2017 [id number] Ambulatory [facility] [place] Repository 12/29/2017/12/30/19 [id number] Ambulatory [address] MEDICAL Repository CENTERBuildi ng:AKXRGN 12/28/2017 [id number] Ambulatory [place] [facility] ding:CR Repository 12/23/2017/12/24/19 [id number] Emergency [address] ding:ED Repository 12/13/2017 [id number] Ambulatory [facility] ding:LAB Repository 12/13/2017/12/14/19 [id number] Ambulatory BMSBuilding: [place] 18 BMS.[facility] Repository 12/12/2017 [id number] Ambulatory BMSBuilding: [place] BMS.[facility] Repository 12/12/2017 [id number] Ambulatory [facility] ding:LAB Repository 12/09/2017 [id number] Ambulatory BMSBuilding: [place] BMS.[facility] Repository 12/09/2017 [id number] Ambulatory [facility] Repository 12/09/2017/12/10/19 [id number] Ambulatory [address] MEDICAL Repository CENTERBuildi ng:AKLB 12/09/2017/12/10/19 [id number] Ambulatory [address] Repository 12/09/2017/12/10/19 [id number] Ambulatory [address] MEDICAL Repository CENTERBuildi ng:AGVASACC 12/08/2017 [id number] Ambulatory BMSBuilding: [place] BMS.[facility] Repository 11/28/2017/12/05/19 [id number] [place], Inpatient [address] Repository 11/28/2017/12/05/19 [id number] [facility], Inpatient [address] MEDICAL Repository BRADENTONBuildi nRoom: 4218Bed: 11/23/2017 [id number] Ambulatory [facility] Repository 11/23/2017 [id number] Ambulatory [facility] Repository 11/23/2017/11/24/19 [id number] Ambulatory [address] MEDICAL Repository CENTERBuildi ng:AKLBF 11/23/2017 [id number] Ambulatory [facility] Repository CENTERBuildi ng:AKCTB 11/23/2017 [id number] Ambulatory [facility] Repository 11/23/2017 [id number] Ambulatory [facility] MEDICAL Repository CENTERBuildi ng:AKPSTB 11/23/2017 [id number] Ambulatory [facility] Other [place] Repository 11/23/2017 [id number] Ambulatory [facility] MEDICAL Repository CENTERBuildi ng:AKPLB 11/23/2017 [id number] Ambulatory [facility] MEDICAL Repository CENTERBuildi ng:AKCTB 11/23/2017 [id number] Ambulatory [facility] MEDICAL Repository CENTERBuildi ng:AKLBF 11/23/2017 [id number] Ambulatory [facility] MEDICAL Repository CENTERBuildi ng:AKLBF 11/23/2017 [id number] Ambulatory [facility] MEDICAL Repository CENTERBuildi ng:AKLBF 11/21/2017 [id number] Ambulatory [facility] MEDICAL Repository CENTERBuildi ng:AKPSTB 11/18/2017 [id number] Ambulatory [facility] ding:LAB Repository 11/16/2017/11/16/19 [id number] Ambulatory [address] Other [place] Repository 11/16/2017/11/16/19 [id number] Ambulatory [address] MEDICAL Repository CENTERBuildi ng:AGVASACC 10/26/2017 [id number] Ambulatory [facility] ding:CLSP Repository 10/26/2017 [id number] [facility] 10/18/2017/10/18/19 [id number] [place]ulatory [place]: [place] Repository PAYERS PAYERS ENCOUNTER GUARANTOR PAYER SUBSCRIBER SOURCE 10/10/2018 LORI Campbell Primary GRACIELA A [place] [id number] Insurance:MEDICARE JENKINSDOB: Community [place] PART A BPolicy Number: [id number] [place] [id number] Repository [address]Bot: 330) Date:2018-09-25 [phone] () 10/10/2018 Secondary GRACIELA A [place] Insurance:AETALONDRA BRITODOB: Community SUPPLEMENT INSPolicy [id number] Hospital Number: Repository [id number] Date:4754-55-08PWGLV SENIOR SUPPLEMENT [address] [address]RX[place]BSSDH, [place] [address]WL: 10/10/2018 Tertiary NOT GIVENUNK [place] Insurance:SELF PAY [facility] Number: Effective Repository Date:2018-10-10 10/09/2018 LORI R Primary GRACIELA A [place] [id number] Insurance:MEDICARE JENKINSDOB: Community [place] PART A BPolicy Number: [id number] [id number] Repository [address]Wyf: (330) Date:2018-09-25 [phone] () 10/09/2018 Secondary GRACIELA A [place] Insurance:AETNA SR JENKINSDOB: Community SUPPLEMENT INSPolicy [id number] Hospital Number: Repository [id number] Date:3740-45-33STUKR SENIOR SUPPLEMENT [address] [address]XRAEJXRHR, [place] [address]VB: 10/09/2018 Tertiary NOT GIVENUNK [place] Insurance:SELF PAY [facility] Number: Effective Repository Date:2018-09-25 09/27/2018 LORI R Primary GRACIELA A [place] [id number] Insurance:MEDICARE JENKINSDOB: Community [place] PART A BPolicy Number: [id number], [place] [id number] Repository [address]Khv: (330) Date:2018-09-25 [phone] () 09/27/2018 Secondary GRACIELA A [place] Insurance:AETNA SR JENKINSDOB: Community SUPPLEMENT INSPolicy [id number] Hospital Number: Repository [id number] Date:1758-22-13PFXRZ SENIOR SUPPLEMENT [address] [place] [address]KX: 09/27/2018 Tertiary NOT GIVENUNK [place] Insurance:SELF PAY [facility] Number: Effective Repository Date:2018-09-27 09/27/2018 LORI R Primary GRACIELA A [place] [id number] Insurance:MEDICARE JENKINSDOB: Community [place] PART A BPolicy Number: [id number], [place] [id number] Repository [address]Vll: (330) Date:2018-09-25 [phone] () 09/27/2018 Secondary GRACIELA A [place] Insurance:AETNA SR JENKINSDOB: Community SUPPLEMENT INSPolicy [id number] Hospital Number: Repository [id number] Date:6625-47-31QJYWL SENIOR SUPPLEMENT [address] [place] [address]VD: 09/27/2018 Tertiary NOT GIVENUNK [place] Insurance:SELF PAY [facility] Number: Effective Repository Date:2018-09-25 09/25/2018 LORI R Primary GRACIELA A [place] [id number] Insurance:MEDICARE JENKINSDOB: Community [place] PART A BPolicy Number: [id number], [place] [id number] Repository [address]Cec: (330) Date:2018-09-25 [phone] () 09/25/2018 Secondary GRACIELA A [place] Insurance:AETNA SR JENKINSDOB: Community SUPPLEMENT INSPolicy [id number] Hospital Number: Repository [id number] Date:7007-01-63YRHVH SENIOR SUPPLEMENT [address] [place] [address]LP: 09/25/2018 Tertiary NOT GIVENUNK [place] Insurance:SELF PAY [facility] Number: Effective Repository Date:2018-09-25 09/25/2018 LORI R Primary GRACIELA A [place] [id number] Insurance:MEDICARE JENKINSDOB: Community [place] PART A BPolicy Number: [id number], [place] [id number] Repository 557[address]Epv: (330) Date:2018-09-01 [phone] () 09/25/2018 Secondary GRACIELA A [place] Insurance:AETNA SR JENKINSDOB: Community SUPPLEMENT INSPolicy [id number] Hospital Number: Repository [id number] Date:5020-63-65XHQVS SENIOR SUPPLEMENT [address] [address]AWQQSUXYL, [place] [address]NV: 09/25/2018 Tertiary NOT GIVENUNK [place] Insurance:SELF PAY [facility] Number: Effective Repository Date:2018-09-25 09/25/2018 LORI R Primary GRACIELA A [place] [id number] Insurance:MEDICARE JENKINSDOB: Community [place] PART A BPolicy Number: [id number], [place] [id number] Repository [address]Qfb: 330) Date:2018-09-01 [phone] () 09/25/2018 Secondary GRACIELA A [place] Insurance:AETNA SR JENKINSDOB: Community SUPPLEMENT INSPolicy [id number] Hospital Number: Repository [id number] Date:9965-88-02TYAEX SENIOR SUPPLEMENT [address] [address]GIK[place]OWKR, [place] [address]PJ: 09/25/2018 Tertiary NOT GIVENUNK [place] Insurance:SELF PAY [facility] Number: Effective Repository Date:2018-09-25 09/20/2018 LROI R Primary GRACIELA A [place] [id number] Insurance:MEDICARE JENKINSDOB: Community [place] PART A BPolicy Number: [id number], [place] [id number] Repository [address]Fxc: 330) Date:2017-12-19 [phone] () 09/20/2018 Secondary GRACIELA A [place] Insurance:AETNA SR JENKINSDOB: Community SUPPLEMENT INSPolicy [id number] Hospital Number: Repository [id number] Date:6002-58-90LQABP SENIOR SUPPLEMENT [address] [address]GNXEKMPZG, [place] [address]RJ: 09/20/2018 Tertiary NOT GIVENUNK [place] Insurance:SELF PAY [facility] Number: Effective Repository Date:2018-09-18 09/07/2018 LORI R Primary GRACIELA A [place] [id number] Insurance:MEDICARE JENKINSDOB: Community [place] PART A BPolicy Number: [id number], [place] [id number] Repository [address]Plw: (330) Date:2018-09-07 [phone] (HP) 09/07/2018 Secondary GRACIELA A [place] Insurance:AETNA SR JENKINSDOB: Community SUPPLEMENT INSPolicy [id number] Hospital Number: Repository [id number] Date:0905-37-91LKZSA SENIOR SUPPLEMENT [address] [place] [address]EO: 09/07/2018 Tertiary NOT GIVENUNK [place] Insurance:SELF PAY [facility] Number: Effective Repository Date:2018-09-07 09/04/2018 LORI R Primary GRACIELA A [place] [id number] Insurance:MEDICARE JENKINSDOB: [facility] [place]CDON[place] PART A BPolicy Number: [id number], [place] [id number] Repository [address]Raj: (330) Date:2018-09-04 [phone] (HP) 09/04/2018 Secondary GRACIELA A [place] Insurance:AETNA SR JENKINSDOB: Community SUPPLEMENT INSPolicy [id number] Hospital Number: Repository [id number] Date:5140-79-48BBIBF SENIOR SUPPLEMENT [address] [place] [address]UF: 09/04/2018 Tertiary NOT GIVENUNK [place] Insurance:SELF PAY Community [facility] Number: Effective Repository Date:2018-09-04 08/24/2018 GRACIELA A Primary GRACIELA A [facility] JENKINSDOB: Insurance:MEDICARE A JENKINSDOB: [facility] [id number] AND BPolicy Number: [id number] Repository [place] [id number] [place] Date: [address]Axd: (HP) 08/24/2018 Secondary GRACIELA A [facility] Insurance:AETNA JENKINSDOB: Health System MEDICARE [id number] Repository SUPPLEMENTPolicy Number: [id number] Date: 08/22/2018 LORI R Primary GRACIELA A [place] [id number] Insurance:MEDICARE JENKINSDOB: Community [place] PART A BPolicy Number: [id number], [place] [id number] Repository [address]Iaa: (330) Date:2017-12-19 [phone] (HP) 08/22/2018 Secondary GRACIELA A [place] Insurance:AETNA SR JENKINSDOB: Community SUPPLEMENT INSPolicy [id number] Hospital Number: Repository [id number] Date:2247-80-19WXXFQ SENIOR SUPPLEMENT [address]IQV[address] [place] [address]TX: 08/22/2018 Tertiary NOT GIVENUNK [place] Insurance:SELF PAY [facility] Effective Repository Date:2018-08-21 08/09/2018 GRACIELA I Primary GRACIELA I [place] [id number] Insurance:CARESOURCEPo JENKINSDOB: Community [address] licy Number: [id number] [id number] Repository [address]Pyz: (330) Date:2018-07-25[phone] (HP) 2258ATTN: [place] [address]NC: 08/09/2018 Secondary NOT GIVENUNK [place] Insurance:SELF PAY [facility] Number: Effective Repository Date:2018-08-09 08/08/2018 LORI R Primary GRACIELA A [place] [id number] Insurance:MEDICARE JENKINSDOB: Community [place] PART A BPolicy Number: [id number], [place] [id number] Repository [address]89[address]Rtb: (330) Date:2017-12-19 [phone] (HP) 08/08/2018 Secondary GRACIELA A [place] Insurance:AETNA SR JENKINSDOB: Community SUPPLEMENT INSPolicy [id number] Hospital Number: Repository [id number] Date:7907-64-38YMHAR SENIOR SUPPLEMENT [address] [address]FPREQQFJM, [place] [address]GR: 08/08/2018 Tertiary NOT GIVENUNK [place] Insurance:SELF PAY [facility] Number: Effective Repository Date:2018-07-20 07/14/2018 LORI R Primary GRACIELA A [place] [id number] Insurance:MEDICARE JENKINSDOB: Community [place] PART A BPolicy Number: [id number], [place] [id number] Repository [address]Hgz: 330) Date:2017-12-19 [phone] (HP) 07/14/2018 Secondary GRACIELA A [place] Insurance:AETNA SR JENKINSDOB: Community SUPPLEMENT INSPolicy [id number] Hospital Number: Repository [id number] Date:8609-53-15CPZXZ SENIOR SUPPLEMENT [address] [address]JYKSXAYDB, [place] [address]ZN: 07/14/2018 Tertiary NOT GIVENUNK [place] Insurance:SELF PAY [facility] Number: Effective Repository Date:2018-06-20 06/28/2018 LORI R Primary Insurance:SELF NOT GIVENUNK [place] [id number] PAY [facility] Number: Effective [place] Date:2018-06-27 Repository 37[address]Zqx: (HP) 06/28/2018 LORI R Primary GRACIELA A [place] [id number] Insurance:MEDICARE JENKINSDOB: Community [place] PART A BPolicy Number: [id number], [place] [id number] Repository 27[address]Uzx: (330) Date:2018-06-27 [phone] (HP) 06/28/2018 Secondary GRACIELA A [place] Insurance:AETNA SR JENKINSDOB: Community SUPPLEMENT INSPolicy [id number] Hospital Number: Repository [id number] Date:6555-96-34GVZIQ SENIOR SUPPLEMENT [address]AHHPFBTTP[address] [place] [address]CI: 06/28/2018 Tertiary NOT GIVENUNK [place] Insurance:SELF PAY [facility] Number: Effective Repository Date:2018-06-27 06/27/2018 LORI R Primary GRACIELA A [place] [id number] Insurance:MEDICARE JENKINSDOB: Community [place] PART A BPolicy Number: [id number], [place] [id number] Repository [address]Qjd: (330) Date:2018-06-27 [phone] (HP) 06/27/2018 Secondary GRACIELA A [place] Insurance:AETNA SR JENKINSDOB: Community SUPPLEMENT INSPolicy [id number] Hospital Number: Repository [id number] Date:1507-00-80KMQHR SENIOR SUPPLEMENT [address] [place] [address]PH: 06/27/2018 Tertiary NOT GIVENUNK [place] Insurance:SELF PAY [facility] Number: Effective Repository Date:2018-06-27 06/26/2018 LORI R Primary GRACIELA A [place] [id number] Insurance:MEDICARE JENKINSDOB: Community [place] PART A BPolicy Number: [id number], [place] [id number] Repository [address]Agl: (330) Date:2018-06-26 [phone] () 06/26/2018 Secondary GRACIELA A [place] Insurance:AETNA SR JENKINSDOB: Community SUPPLEMENT INSPolicy [id number] Hospital Number: Repository [id number] Date:6902-22-32UPNDT SENIOR SUPPLEMENT [address]XQ[address] [place] [address]JE: 06/26/2018 Tertiary NOT GIVENUNK [place] Insurance:SELF PAY [facility] Number: Effective Repository Date:2018-06-26 06/09/2018 LORI R Primary GRACIELA A [place] [id number] Insurance:MEDICARE JENKINSDOB: Community [place] PART A BPolicy Number: [id number], [place] [id number] Repository 388[address]Wcz: (330) Date:2017-12-19 [phone] (HP) 06/09/2018 Secondary GRACIELA A [place] Insurance:AETNA SR JENKINSDOB: Community SUPPLEMENT INSPolicy [id number] Hospital Number: Repository [id number] Date:9022-83-39NCCZN SENIOR SUPPLEMENT [address]SPO [address] [address]XBHXELEDM, [place] [address]VS: 06/09/2018 Tertiary NOT GIVENUNK [place] Insurance:SELF PAY [facility] Effective Repository Date:2018-05-23 05/12/2018 LORI R Primary GRACIELA A [place] [id number] Insurance:MEDICARE JENKINSDOB: Community [place] PART A BPolicy [place]: [id number] [id number] Repository [address]Keo: (345) Date:2017-12-19 [phone] (HP) 05/12/2018 Secondary GRACIELA A [place] Insurance:AETNA SR JENKINSDOB: Community SUPPLEMENT INSPolicy [id number] Hospital Number: Repository [id number] Date:1862-54-00KVJJD SENIOR SUPPLEMENT [address] [address]KBVPA[place], [place] [address]HF: 05/12/2018 Tertiary NOT GIVENUNK [place] Insurance:SELF PAY [facility] Number: Effective Repository Date:2018-04-20 05/11/2018 LORI R Primary GRACIELA A [place] [id number] Insurance:MEDICARE JENKINSDOB: Community [place] PART A BPolicy Number: [id number], [place] [id number] Repository [address]Ual: 330) Date:2017-10-18 [phone] (HP) 05/11/2018 Secondary GRACIELA A [place] Insurance:AETNA SR JENKINSDOB: Community SUPPLEMENT INSPolicy [id number] Hospital Number: Repository [id number] Date:7739-03-05ATAWS SENIOR SUPPLEMENT [address] [address]OSWLQQNZK, [place] [address]SH: 05/11/2018 Tertiary NOT GIVENUNK [place] Insurance:SELF PAY [facility] Effective Repository Date:2018-05-11 04/25/2018 LORI R Primary GRACIELA A [place] [id number] Insurance:MEDICARE JENKINSDOB: Community [place] PART A BPolicy Number: [id number], [place] [id number] Repository [address]Ubo: (330) Date:2018-04-19 [phone] () 04/25/2018 Secondary GRACIELA A [place] Insurance:AETNA SR JENKINSDOB: Community SUPPLEMENT INSPolicy [id number] Hospital Number: Repository [id number] Date:6905-47-43IIBTI SENIOR SUPPLEMENT [address]BSF[address] [place] [address]QJ: 04/25/2018 Tertiary NOT GIVENUNK [place] Insurance:SELF PAY [facility] Number: Effective Repository Date:2018-04-19 04/25/2018 LORI R Primary GRACIELA A [place] [id number] Insurance:MEDICARE JENKINSDOB: Community [place] PART A BPolicy Number: [id number], [place] [id number] Repository 13387Uvc: (330) Date:2018-04-19 [phone] () 04/25/2018 Secondary GRACIELA A [place] Insurance:AETNA SR JENKINSDOB: Community SUPPLEMENT INSPolicy [id number] Hospital Number: Repository [id number] Date:0302-51-50SBSOG SENIOR SUPPLEMENT [address]QR[address] [place] [address]EN: 04/25/2018 Tertiary NOT GIVENUNK [place] Insurance:SELF PAY [facility] Number: Effective Repository Date:2018-04-25 04/24/2018 LORI R Primary GRACIELA A [place] [id number] Insurance:MEDICARE JENKINSDOB: Community [place] PART A BPolicy Number: [id number], [place] [id number] Repository 21042Itt: (330) Date:2017-12-28 [phone] () 04/24/2018 Secondary GRACIELA A [place] Insurance:AETNA SR JENKINSDOB: Community SUPPLEMENT INSPolicy [id number] Hospital Number: Repository [id number] Date:5500-23-15CVTRE SENIOR SUPPLEMENT [address] [place] [address]XE: 04/24/2018 Tertiary NOT GIVENUNK [place] Insurance:SELF PAY [facility] Number: Effective Repository Date:2018-04-19 04/17/2018 LORI R Primary GRACIELA A [place] [id number] Insurance:MEDICARE JENKINSDOB: Community [place] PART A BPolicy Number: [id number], [place] [id number] Repository 74566Wly: (330) Date:2017-12-28 [phone] (HP) 04/17/2018 Secondary GRACIELA A [place] Insurance:AETNA SR JENKINSDOB: Community SUPPLEMENT INSPolicy [id number] Hospital Number: Repository [id number] Date:9522-45-95PYSOH SENIOR SUPPLEMENT [address]YCWGGXJOH[address] [place] [address]NA: 04/17/2018 Tertiary NOT GIVENUNK [place] Insurance:SELF PAY Community [facility] Number: Effective Repository Date:2018-03-19 04/17/2018 LORI R Primary GRACIELA A [place] [id number] Insurance:MEDICARE JENKINSDOB: Community [place] PART A BPolicy Number: [id number], [place] [id number] Repository 86523Sdf: (330) Date:2018-04-10 [phone] () 04/17/2018 Secondary GRACIELA A [place] Insurance:AETNA SR JENKINSDOB: Community SUPPLEMENT INSPolicy [id number] Hospital Number: Repository [id number] Date:0551-95-12KQHJF SENIOR SUPPLEMENT [address]YFKTSLPGO[address] [place] [address]ZA: 04/17/2018 Tertiary NOT GIVENUNK [place] Insurance:SELF PAY Community [facility] Number: Effective Repository Date:2018-04-17 04/10/2018 LORI R Primary GRACIELA A [place] [id number] Insurance:MEDICARE JENKINSDOB: Community [place] PART A BPolicy Number: [id number], [place] [id number] Repository 65651Net: (330) Date:2017-12-30 [phone] (HP) 04/10/2018 Secondary GRACIELA A [place] Insurance:AETNA SR JENKINSDOB: Community SUPPLEMENT INSPolicy [id number] Hospital Number: Repository [id number] Date:9871-94-60EPRMZ SENIOR SUPPLEMENT [address]YLIQULEQF[address] [place] [address]MQ: 04/10/2018 Tertiary NOT GIVENUNK [place] Insurance:SELF PAY Community [facility] Number: Effective Repository Date:2018-04-10 04/07/2018 LORI R Primary GRACIELA A [place] [id number] Insurance:MEDICARE JENKINSDOB: Community [place] PART A BPolicy Number: [id number], [place] [id number] Repository 22537Xai: 330) Date:2018-04-07 [phone] () 04/07/2018 Secondary GRACIELA A [place] Insurance:AETNA SR JENKINSDOB: Community SUPPLEMENT INSPolicy [id number] Hospital Number: Repository [id number] Date:3541-33-09UCADY SENIOR SUPPLEMENT [address]DPNAFIMGH[address] [place] [address]WJ: 04/07/2018 Tertiary NOT GIVENUNK [place] Insurance:SELF PAY [facility] Number: Effective Repository Date:2018-04-07 04/07/2018 LORI R Primary GRACIELA A [place] [id number] Insurance:MEDICARE JENKINSDOB: Community [place] PART A BPolicy Number: [id number], [place] [id number] Repository 44859Zvf: (330) Date:2018-04-07 [phone] () 04/07/2018 Secondary GRACIELA A [place] Insurance:AETNA SR JENKINSDOB: Community SUPPLEMENT INSPolicy [id number] Hospital Number: Repository [id number] Date:5898-98-96LQXLU SENIOR SUPPLEMENT [address] [address]REEXFHTAC, [place] [address]WY: 04/07/2018 Tertiary NOT GIVENUNK [place] Insurance:SELF PAY Community [facility] Number: Effective Repository Date:2018-04-07 03/31/2018 LORI R Primary GRACIELA A [place] [id number] Insurance:MEDICARE JENKINSDOB: Community [place] PART A BPolicy Number: [id number], [place] [id number] Repository 33074Qdn: (330) Date:2017-12-19 [phone] () 03/31/2018 Secondary GRACIELA A [place] Insurance:AETNA SR JENKINSDOB: Community SUPPLEMENT INSPolicy [id number] Hospital Number: Repository [id number] Date:7958-78-99TSZZW SENIOR SUPPLEMENT [address]DDSULSEBK[address] [place] [address]CO: 03/31/2018 Tertiary NOT GIVENUNK [place] Insurance:SELF PAY [facility]: Effective Repository Date:2018-03-17 03/31/2018 LORI R Primary GRACIELA A [place] [id number] Insurance:MEDICARE JENKINSDOB: Community [place]D PART A BPolicy Number: [id number], [place] [id number] Repository 41206Bes: (330) Date:2018-03-31 [phone] () 03/31/2018 Secondary GRACIELA A [place] Insurance:AETNA SR JENKINSDOB: Community SUPPLEMENT INSPolicy [id number] Hospital Number: Repository [id number] Date:7257-11-97VXMEV SENIOR SUPPLEMENT [address]MGLGGFTPN[address] [place] [address]UL: 03/31/2018 Tertiary NOT GIVENUNK [place] Insurance:SELF PAY [facility] Number: Effective Repository Date:2018-03-31 03/30/2018 LORI R Primary GRACIELA A [place] [id number] Insurance:MEDICARE JENKINSDOB: Community [place]D PART A BPolicy Number: [id number], [place] [id number] Repository 27044Guu: (330) Date:2018-03-24 [phone] () 03/30/2018 Secondary GRACIELA A [place] Insurance:AETNA SR JENKINSDOB: Community SUPPLEMENT INSPolicy [id number] Hospital Number: Repository [id number] Date:0032-94-64SEGFG SENIOR SUPPLEMENT [address] [address]AROCRKKQC, [place] [address]GT: 03/30/2018 Tertiary NOT GIVENUNK [place] Insurance:SELF PAY [facility] Number: Effective Repository Date:2018-03-24 03/30/2018 LORI R Primary GRACIELA A [place] [id number] Insurance:MEDICARE JENKINSDOB: Community [place]D PART A BPolicy Number: [id number], [place] [id number] Repository 417[address]Apu: 330) Date:2018-03-24 [phone] () 03/30/2018 Secondary GRACIELA A [place] Insurance:AETNA SR JENKINSDOB: Community SUPPLEMENT INSPolicy [id number] Hospital Number: Repository [id number] Date:6654-52-31DHUBF SENIOR SUPPLEMENT [address]XJPUFTOYQ[address] [place] [address]FC: 03/30/2018 Tertiary NOT GIVENUNK [place] Insurance:SELF PAY [facility] Number: Effective Repository Date:2018-03-30 03/20/2018 LORI R Primary GRACIELA A [place] [id number] Insurance:MEDICARE JENKINSDOB: Community [place]ON[place]D PART A BPolicy Number: [id number], [place] [id number] Repository 82509Bvg: (330) Date:2018-03-20 [phone] () 03/20/2018 Secondary GRACIELA A [place] Insurance:AETNA SR JENKINSDOB: Community SUPPLEMENT INSPolicy [id number] Hospital Number: Repository [id number] Date:3925-68-26UDSRU SENIOR SUPPLEMENT [address] [address]EXHOMYRCQ, [place] [address]QG: 03/20/2018 Tertiary NOT GIVENUNK [place] Insurance:SELF PAY [facility] Number: Effective Repository Date:2018-03-20 03/20/2018 LORI R Primary GRACIELA A [place] [id number] Insurance:MEDICARE JENKINSDOB: Community [place]ON[place]D PART A BPolicy Number: [id number], [place] [id number] Repository 94882Oeg: (330) Date:2018-03-15 [phone] (HP) 03/20/2018 Secondary GRACIELA A [place] Insurance:AETNA SR JENKINSDOB: Community SUPPLEMENT INSPolicy [id number] Hospital Number: Repository [id number] Date:7701-01-69VUKFO SENIOR SUPPLEMENT [address]OIECZRSGW[address] [place] [address]CN: 03/20/2018 Tertiary NOT GIVENUNK [place] Insurance:SELF PAY Community [facility] Number: Effective Repository Date:2018-03-20 03/15/2018 LORI R Primary GRACIELA A [place] [id number] Insurance:MEDICARE JENKINSDOB: Community [place]ON[place]D PART A BPolicy Number: [id number], [place] [id number] Repository 59645Hem: (330) Date:2017-12-19 [phone] (HP) 03/15/2018 Secondary GRACIELA A [place] Insurance:AETNA SR JENKINSDOB: Community SUPPLEMENT INSPolicy [id number] Hospital Number: Repository [id number] Date:5321-32-79OUWXV SENIOR SUPPLEMENT [address]WDBBIMPFS[address] [place] [address]XT: 03/15/2018 Tertiary NOT GIVENUNK [place] Insurance:SELF PAY Community [facility] Number: Effective Repository Date:2018-02-16 03/15/2018 LORI R Primary GRACIELA A [place] [id number] Insurance:MEDICARE JENKINSDOB: Community [place]D PART A BPolicy Number: [id number], [place] [id number] Repository 18077Gis: (330) Date:2018-03-15 [phone] (HP) 03/15/2018 Secondary GRACIELA A [place] Insurance:AETNA SR JENKINSDOB: Community SUPPLEMENT INSPolicy [id number] Hospital Number: Repository [id number] Date:2275-88-36UGAUZ SENIOR SUPPLEMENT [address] [address]UOOTALTJZ, [place] [address]GW: 03/15/2018 Tertiary NOT GIVENUNK [place] Insurance:SELF PAY [facility] Number: Effective Repository Date:2018-03-15 03/15/2018 LORI R Primary GRACIELA A [place] [id number] Insurance:MEDICARE JENKINSDOB: Community M[place]ON[place]D PART A BPolicy Number: [id number], [place] [id number] Repository 81758Fii: (330) Date:2017-12-28 [phone] (HP) 03/15/2018 Secondary GRACIELA A [place] Insurance:AETNA SR JENKINSDOB: Community SUPPLEMENT INSPolicy [id number] Hospital Number: Repository [id number] Date:5716-96-83JFNRK SENIOR SUPPLEMENT [address] [address]RDKTWAVFJ, [place] [address]WK: 03/15/2018 Tertiary NOT GIVENUNK [place] Insurance:SELF PAY [facility] Number: Effective Repository Date:2018-02-17 02/16/2018 LORI R Primary GRACIELA A [place] [id number] Insurance:MEDICARE JENKINSDOB: Community M[place]ON[place]D PART A BPolicy Number: [id number], [place] [id number] Repository 64451Jne: (330) Date:2018-02-16 [phone] (HP) 02/16/2018 Secondary GRACIELA A [place] Insurance:AETNA SR JENKINSDOB: Community SUPPLEMENT INSPolicy [id number] Hospital Number: Repository [id number] Date:0155-76-86GIDMW SENIOR SUPPLEMENT [address]KJDQDUUWU[address] [place] [address]FP: 02/16/2018 Tertiary NOT GIVENUNK [place] Insurance:SELF PAY [facility] Number: Effective Repository Date:2018-02-16 02/15/2018 LORI R Primary GRACIELA A [place] [id number] Insurance:MEDICARE JENKINSDOB: Community [place]ON[place]D PART A BPolicy Number: [id number], [place] [id number] Repository 37766Oki: (330) Date:2017-12-28 [phone] (HP) 02/15/2018 Secondary GRACIELA A [place] Insurance:AETNA SR JENKINSDOB: Community SUPPLEMENT INSPolicy [id number] Hospital Number: Repository [id number] Date:8955-83-84KQSFU SENIOR SUPPLEMENT [address]SHJRRYL[address] [place] [address]SA: 02/15/2018 Tertiary NOT GIVENUNK [place] Insurance:SELF PAY [facility] Number: Effective Repository Date:2018-01-17 02/15/2018 LORI R Primary GRACIELA A [place] [id number] Insurance:MEDICARE JENKINSDOB: Community [place]ON[place]D PART A BPolicy Number: [id number], [place] [id number] Repository 87884Hhs: (330) Date:2017-12-19 [phone] () 02/15/2018 Secondary GRACIELA A [place] Insurance:AETNA SR JENKINSDOB: Community SUPPLEMENT INSPolicy [id number] Hospital Number: Repository [id number] Date:1216-45-87WJSPX SENIOR SUPPLEMENT [address] [address]PZZCZJOFK, [place] [address]AJ: 02/15/2018 Tertiary NOT GIVENUNK [place] Insurance:SELF PAY [facility] Number: Effective Repository Date:2018-01-17 02/06/2018 LORI R Primary GRACIELA A [place] [id number] Insurance:MEDICARE JENKINSDOB: Community M[place]ON[place]D PART A BPolicy Number: [id number], [place] [id number] Repository 16337Wxu: (330) Date:2018-02-06 [phone] (HP) 02/06/2018 Secondary GRACIELA A [place] Insurance:AETNA SR JENKINSDOB: Community SUPPLEMENT INSPolicy [id number] Hospital Number: Repository [id number] Date:3231-25-27KBQUV SENIOR SUPPLEMENT [address] [address]KJIGHBHPP, [place] [address]OP: 02/06/2018 Tertiary NOT GIVENUNK [place] Insurance:SELF PAY [facility] Number: Effective Repository Date:2018-02-06 01/16/2018 LORI R Primary GRACIELA A [place] [id number] Insurance:MEDICARE JENKINSDOB: Community MCDONALD PART A BPolicy Number: [id number], [place] [id number] Repository 09668Xjx: (330) Date:2017-12-28 [phone] () 01/16/2018 Secondary GRACIELA A [place] Insurance:AETNA SR JENKINSDOB: Community SUPPLEMENT INSPolicy [id number] Hospital Number: Repository [id number] Date:9165-74-81XRJVR SENIOR SUPPLEMENT [address] [place] [address]WO: 01/16/2018 Tertiary NOT GIVENUNK [place] Insurance:SELF PAY Community [facility] Number: Effective Repository Date:2017-12-28 01/16/2018 LORI R Primary GRACIELA A [place] [id number] Insurance:MEDICARE JENKINSDOB: Community MCDONALD PART A BPolicy Number: [id number], [place] [id number] Repository 18475Wmz: (330) Date:2017-12-19 [phone] () 01/16/2018 Secondary GRACIELA A [place] Insurance:AETNA SR JENKINSDOB: Community SUPPLEMENT INSPolicy [id number] Hospital Number: Repository [id number] Date:6381-61-18MWMBN SENIOR SUPPLEMENT [address] [place] [address]RW: 01/16/2018 Tertiary NOT GIVENUNK [place] Insurance:SELF PAY Community [facility] Number: Effective Repository Date:2017-12-19 12/30/2017 LORI R Primary GRACIELA A [place] [id number] Insurance:MEDICARE JENKINSDOB: Community MCDONALD PART A BPolicy Number: [id number], [place] [id number] Repository 06496Fcw: (330) Date:2017-12-07 [phone] (HP) 12/30/2017 Secondary GRACIELA A [place] Insurance:AETNA SR JENKINSDOB: Community SUPPLEMENT INSPolicy [id number] Hospital Number: Repository [id number] Date:5504-77-28XFJFO SENIOR SUPPLEMENT [address] [address]BQXPRTYGY, [place] [address]HS: 12/30/2017 Tertiary NOT GIVENUNK [place] Insurance:SELF PAY Community [facility] Number: Effective Repository Date:2017-12-30 12/29/2017 GRACIELA A Primary GRACIELA A [facility] JENKINSDOB: Insurance:MEDICARE A JENKINSDOB: Health System AND BPolicy Number: [id number] [facility] [id number] [place], [place] Date: [address]Woj: () 12/29/2017 Secondary GRACIELA A [facility] Insurance:AETNA LULUKINSDOB: Health System MEDICARE [id number] Repository SUPPLEMENTPolicy Number: [id number] Date: 12/29/2017 GRACIELA A Primary GRACIELA A [facility] JENKINSDOB: Insurance:MEDICARE A JENKINSDOB: Health System AND BPolicy Number: [id number] Repository [place] [id number] [place], [place] Date: [address]Hpk: () 12/29/2017 Secondary GRACIELA A [facility] Insurance:AETNA LULUKINSDOB: Health System MEDICARE [id number] Repository SUPPLEMENTPolicy Number: [id number] Date: 12/28/2017 LORI Campbell Primary GRACIELA A [place] [id number] Insurance:MEDICARE JENKINSDOB: [facility] MCDONALD PART A BPolicy Number: [id number] [place] [id number] Repository [address]Aiv: 330) Date:2017-12-14 [phone] () 12/28/2017 Secondary GRACIELA A [place] Insurance:AETNA SR JENKINSDOB: Community SUPPLEMENT INSPolicy [id number] Hospital Number: Repository [id number] Date:5712-33-95YDEWN SENIOR SUPPLEMENT [address] [address]WGVQZJXED, [place] [address]MG: 12/28/2017 Tertiary NOT GIVENUNK [place] Insurance:SELF PAY [facility] Effective Repository Date:2017-12-14 12/23/2017 LORI R Primary GRACIELA A [place] [id number] Insurance:MEDICARE JENKINSDOB: Community MCDONALD PART A BPolicy Number: [id number], [place] [id number] Repository 79899Mpo: (810) Date:2017-12-23 [phone] (HP) 12/23/2017 Secondary GRACIELA A [place] Insurance:AETNA SR JENKINSDOB: Community SUPPLEMENT INSPolicy [id number] Hospital Number: Repository [id number] Date:5050-32-77ZVBRM SENIOR SUPPLEMENT [address] [address]GJZJTQSPD, [place] [address]XT: 12/23/2017 Tertiary NOT GIVENUNK [place] Insurance:SELF PAY [facility] Number: Effective Repository Date:2017-12-23 12/13/2017 LORI R Primary GRACIELA A [place] [id number] Insurance:MEDICARE JENKINSDOB: Community M[place]ON[place]D PART A BPolicy Number: [id number], [place] [id number] Repository 757[address]Xhv: 330) Date:2017-12-13 [phone] (HP) 12/13/2017 Secondary GRACIELA A [place] Insurance:AETNA SR JENKINSDOB: Community SUPPLEMENT INSPolicy [id number] Hospital Number: Repository [id number] Date:4322-65-60QDMOD SENIOR SUPPLEMENT [address] [address]BPNNTCSIE, [place] [address]EF: 12/13/2017 Tertiary NOT GIVENUNK [place] Insurance:SELF PAY [facility]: Effective Repository Date:2017-12-13 12/13/2017 LORI R Primary GRACIELA A [place] [id number] Insurance:MEDICARE JENKINSDOB: Community MCDONALD PART A BPolicy Number: [id number], [place] [id number] Repository 597[address]Vqy: (330) Date:2017-12-09 [phone] (HP) 12/13/2017 Secondary GRACIELA A [place] Insurance:AETNA SR JENKINSDOB: Community SUPPLEMENT INSPolicy [id number] Hospital Number: Repository [id number] Date:8602-40-10YPCNL SENIOR SUPPLEMENT [address] [place] [address]DT: 12/13/2017 Tertiary NOT GIVENUNK [place] Insurance:SELF PAY [facility] Number: Effective Repository Date:2017-12-13 12/12/2017 LORI R Primary GRACIELA A [place] [id number] Insurance:MEDICARE JENKINSDOB: Community MCDONALD PART A BPolicy Number: [id number], [place] [id number] Repository 40962Mmm: (330) Date:2017-12-12 [phone] (HP) 12/12/2017 Secondary GRACIELA A [place] Insurance:AETNA SR JENKINSDOB: Community SUPPLEMENT INSPolicy [id number] Hospital Number: Repository [id number] Date:5687-47-90UBFYL SENIOR SUPPLEMENT [address] [address]YOQGNVDDP, [place] [address]HX: 12/12/2017 Tertiary NOT GIVENUNK [place] Insurance:SELF PAY [facility] Number: Effective Repository Date:2017-12-12 12/12/2017 LORI R Primary GRACIELA A [place] [id number] Insurance:MEDICARE JENKINSDOB: Community MCD[place] PART A BPolicy Number: [id number] [id number] Repository [address]Noe: (330) Date:2017-12-12 [phone] (HP) 12/12/2017 Secondary GRACIELA A Rey Insurance:AETNA SR JENKINSDOB: Community SUPPLEMENT INSPolicy [id number] Hospital Number: Repository [id number] Date:[id number] SENIOR SUPPLEMENT [address] [address], [place] [address]OE: 12/12/2017 Tertiary NOT GIVENUNK [place] Insurance:SELF PAY [facility] Number: Effective Repository Date:2017-12-12 12/09/2017 LORI R Primary GRACIELA A [place] [id number] Insurance:MEDICARE JENKINSDOB: [facility] [place] PART A BPolicy Number: [id number] [place], [place] [id number] Repository [address]Iyq: (462) Date:2017-12-09 [phone] (HP) 12/09/2017 Secondary GRACIELA A [place] Insurance:AETNA SR JENKINSDOB: Community SUPPLEMENT INSPolicy [id number] Hospital Number: Repository [id number] Date:[id number] SENIOR SUPPLEMENT [address] [address], [place] [address]AG: 12/09/2017 Tertiary NOT GIVENUNK [place] Insurance:SELF PAY [facility] Number: Effective Repository Date:2017-12-09 12/09/2017 GRACIELA A Primary GRACIELA A [facility] JENKINSDOB: Insurance:MEDICARE A JENKINSDOB: Health System AND BPolicy Number: [id number] [facility] [id number] [place], [place] Date: [address]Tsx: (HP) 12/09/2017 Secondary GRACIELA A [facility] Insurance:AETNA YELENADOB: Health System MEDICARE [id number] Repository SUPPLEMENTPolicy Number: [id number] Date: 12/09/2017 GRACIELA A Primary GRACIELA A [facility] JENKINSDOB: Insurance:MEDICARE A JENKINSDOB: Health System AND BPolicy Number: [id number] [facility] [id number] [place], [place] Date: [address]Bqi: (HP) 12/09/2017 Secondary GRACIELA A [facility] Insurance:AETNA YELENADOB: Health System MEDICARE [id number] Repository SUPPLEMENTPolicy Number: [id number] Date: 12/08/2017 LORI R Primary GRACIELA A [place] [id number] Insurance:AETNA SR JENKINSDOB: [facility] [place] SUPPLEMENT INSPolicy [id number], [place] Number: Repository [id number]: 330 [id number] [phone] (HP) Date:7044-40-50WPILW SENIOR SUPPLEMENT [address] [place] [address]JT: 12/08/2017 Secondary GRACIELA A [place] Insurance:MEDICARE JENKINSDOB: [facility] PART A BPolicy Number: [id number] Hospital [id number] Repository Date:2017-08-29 12/08/2017 Tertiary NOT GIVENUNK [place] Insurance:SELF PAY [facility] Effective Repository Date:2017-08-29 11/28/2017 GRACIELA A Primary RGACIELA A [facility] JENKINSDOB: Insurance:MEDICARE A JENKINSDOB: Health System AND BPolicy Number: [id number] Repository [place] [id number] [place], [place] Date: [address]Nht: (HP) 11/28/2017 Secondary GRACIELA A [facility] Insurance:AETNA LULUKINSDOB: Health System MEDICARE [id number] Repository SUPPLEMENTPolicy Number: [id number] Date: 11/23/2017 GRACIELA A Primary GRACIELA A [facility] JENKINSDOB: Insurance:MEDICARE A JENKINSDOB: Health System AND BPolicy Number: [id number] Repository [place] [id number] [facility] [place] Date: [address]Ggt: (HP) 11/23/2017 Secondary GRACIELA A [facility] Insurance:AETNA LULUKINSDOB: Health System MEDICARE [id number] Repository SUPPLEMENTPolicy Number: [id number] Date: 11/23/2017 GRACIELA A Primary GRACIELA A [facility] JENKINSDOB: Insurance:MEDICARE A JENKINSDOB: Health System AND BPolicy Number: [id number] Repository [place] [id number] [place] Date: [address]Cnu: (HP) 11/23/2017 Secondary GRACIELA A [facility] Insurance:AETNA YELENADOB: [facility] System MEDICARE [id number] Repository SUPPLEMENTPolicy Number: [id number] Date: 11/23/2017 GRACIELA A Primary GRACIELA A [facility] JENKINSDOB: Insurance:MEDICARE A LULUESSENTIA HEALTHDOB: Health System AND BPolicy Number: [id number] Repository [place] [id number] [place] Date: [address]Uie: (HP) 11/23/2017 Secondary GRACIELA A [facility] Insurance:AETNA YELENADOB: Health System MEDICARE [id number] Repository SUPPLEMENTPolicy Number: [id number] Date: 11/23/2017 GRACIELA A Primary GRACIELA A [facility] JENKINSDOB: Insurance:MEDICARE A [facility]: [facility] AND BPolicy Number: [id number] Repository [place] [id number] [place] Date: [address]Ddm: (HP) 11/23/2017 Secondary GRACIELA A [facility] Insurance:AETNA YELENADOB: Health System MEDICARE [id number] Repository SUPPLEMENTPolicy Number: [id number] Date: 11/23/2017 GRACIELA A Primary GRACIELA A [facility] JENKINSDOB: Insurance:MEDICARE A YELENADOB: Health System AND BPolicy Number: [id number] Repository [place] [id number] [place] Date: [address]Sdi: (HP) 11/23/2017 Secondary GRACIELA A [facility] Insurance:AETNA YELENADOB: Health System MEDICARE [id number] Repository SUPPLEMENTPolicy Number: [id number] Date: 11/21/2017 GRACIELA A Primary GRACIELA A [facility] JENKINSDOB: Insurance:MEDICARE A JENKINSDOB: Health System AND BPolicy Number: [id number] Repository [place] [id number] [place], [place] Date: [address]Qqu: (HP) 11/21/2017 Secondary GRACIELA A [facility] Insurance:AETNA JENKINSDOB: Health System MEDICARE [id number] Repository SUPPLEMENTPolicy Number: [id number] Date: 11/18/2017 LORI R Primary GRACIELA A [place] [id number] Insurance:MEDICARE JENKINSB: [facility] [place] PART A BPolicy Number: [id number] [place] [id number] Repository [address]Hor: (326) Date:2017-11-18 [phone] (HP) 11/18/2017 Secondary GRACIELA A [place] Insurance:AETNA SR JENKINSDOB: Community SUPPLEMENT INSPolicy [id number] Hospital Number: Repository [id number] Date:6219-89-24TEBVZ SENIOR SUPPLEMENT [address] [place] [id number]: 11/18/2017 Tertiary NOT GIVENUNK [place] Insurance:SELF PAY [facility] Number: Effective Repository Date:2017-11-18 11/16/2017 GRACIELA A Primary GRACIELA A [facility] JENKINSDOB: Insurance:MEDICARE A JENKINSDOB: Health System AND BPolicy Number: [id number] Repository [place] [id number] [place], [place] Date: [address]Agp: (HP) 11/16/2017 Secondary GRACIELA A [facility] Insurance:AETNA JENKINSDOB: Health System MEDICARE [id number] Repository SUPPLEMENTPolicy Number: [id number] Date: 10/26/2017 LORI R Primary GRACIELA A [place] [id number] Insurance:MEDICARE JENKINSDOB: Community [place] PART A BPolicy [place]: [id number] [id number] Repository [address]Elx: (330) Date:2017-10-18 [phone] (HP) 10/26/2017 Secondary GRACIELA A [place] Insurance:AETNA SR JENKINSDOB: Community SUPPLEMENT INSPolicy [id number] Hospital Number: Repository [id number] Date:[id number] SENIOR SUPPLEMENT [address]SP[address] [place] [phone]: 10/26/2017 Tertiary NOT GIVENUNK [place] Insurance:SELF PAY [facility] Number: Effective Repository Date:2017-10-18 10/26/2017 LORI R Primary GRACIELA A [place] [id number] Insurance:MEDICARE JENKINSDOB: Community [place] PART A BPolicy Number: [id number] [id number] Repository [address]Swi: (330) Date:2017-10-18 [phone] (HP) 10/26/2017 Secondary GRACIELA A [place] Insurance:AETNA SR JENKINSDOB: Community SUPPLEMENT INSPolicy [id number] Hospital Number: Repository [id number] Date:0418-63-80GVOIC SENIOR SUPPLEMENT [id number] [place] [phone]: 10/26/2017 Tertiary NOT GIVENUNK [place] Insurance:SELF PAY [facility] Number: Effective Repository Date:2017-10-26 10/18/2017 GRACIELA A Primary GRACIELA A [place] [id number] Insurance:MEDICARE JENKINSDOB: Community [place] PART A BPolicy Number: [id number] [id number] Repository [address]Vhn: (330) Date:2017-10-06 [phone] (HP) 10/18/2017 Secondary GRACIELA A [place] Insurance:AETNA SR JENKINSDOB: Community SUPPLEMENT INSPolicy [id number] Hospital Number: Repository [id number] Date:0580-24-09DLTAZ SENIOR SUPPLEMENT [address] [address], [place] [address]VC: 10/18/2017 Tertiary NOT GIVENUNK [place] Insurance:SELF PAY [facility]: Effective Repository Date:2017-10-06
== END ==
PROVIDERS: Family Provider Family Medicine; PCP Family Medicine; Referring Provider Family Medicine; Visit Provider Family Medicine
DX: E11.9 Type 2 diabetes mellitus without complications (principal); E03.9 Hypothyroidism, unspecified
CPT/HCPCS: 80048; 80061; 80076; 82043; 82570; 84436; 84443; 84481

== ENCOUNTER 2018-09-07 23:28 | Emergency (ER) | payer MEDICARE, OTHER, SELFPAY ==
[2018-08-21 10:13] VITALS: BMI 48.9
[2018-09-07 23:29] VITALS: BP 146/77; PULSE 84; RESP 18; TEMP 37.2; O2SAT 98; BMI 44.8
--- NOTE | 2018-09-08 00:01 | EKG12_ITS ---
Test Reason : PALPS Blood Pressure : / mmHG Vent. Rate : 079 BPM Atrial Rate : 079 BPM P-R Int : 172 ms QRS Dur : 084 ms QT Int : 376 ms P-R-T Axes : 018 -02 097 degrees QTc Int : 431 ms Normal sinus rhythm with sinus arrhythmia Septal infarct , age undetermined Abnormal ECG Confirmed by JESSICA ALLEN ([id number]), editor publications DIANE NAVARRETE ([id number]) on 09/13/2018 2:37:06 PM Referred By: Bird Garza Confirmed By:JESSICA ALLEN
[2018-09-08] MEDS: Aspirin 81 MG TAB.CHEW 324 MG PO (00:12)
[2018-09-08 00:23] LABS: Absolute Lymphocyte Count 1.69 X10^3/ul (0.83-4.51); Absolute Neutrophil Count 5.6 X10^3/uL (2.0-7.7); Basophil# 0.01 X10^3/uL; Basophil% 0.1 % (0-1); Eosinophil# 0.05 X10^3/uL; Eosinophils% 0.6 % (0-5); Hemoglobin 12.1 g/dl (12.0-15.0); Lymphocyte # 1.69 X10^3/ul (4.0); Mean Corp Hgb Conc 31.8 g/gl (32-36); Mean Corpuscular Hgb 30.9 pg (27.0-32.0); Mean Corpuscular Volume 97.2 fL (81-99); Mean Platelet Vol. 9.1 fl (6.2-12.0); Monocyte# 0.68 X10^3/uL; Monocyte% 8.4 % (0-10); Neutrophil # 5.61 X10^3/uL (2.7-7.7); Neutrophil % 69.8 % (47-70); Platelet Count 161 K/mm3 (150-450); RBC Distribution Width CV 14.7 % (11.6-14.6); RBC Distribution Width SD 52.1 fl (35.1-43.9); Red Blood Count 3.91 M/mm3 (4.2-5.4); White Blood Count 8.1 K/mm3 (4.4-11.0)
[2018-09-08 00:25] LABS: POSITIVE COUNT NO; POSITIVE DIFFERENTIAL NO; POSITIVE MORPHOLOGY NO
--- NOTE | 2018-09-08 00:25 | RAD_ITS ---
STUDY: X-RAY CHEST REASON FOR EXAM: Female, 68 years old. Palpitations TECHNIQUE: PA and lateral COMPARISON: June 26, 2018 FINDINGS: The lungs are clear and expanded. There are NO infiltrates, effusions or pneumothoraces. Normal size heart. There has been open heart surgery. Normal visualized pulmonary arteries. Normal visualized aortic arch and descending thoracic aorta. Normal visualized thoracic spine. Normal visualized ribs, clavicles, and shoulders. There is no demonstrated abnormality of the visualized soft tissue structures of the upper abdomen. RAD/Chest PA and Lateral IMPRESSION: The lungs are clear and expanded. There are NO infiltrates, effusions or pneumothoraces. Normal size heart. There has been open heart surgery. Electronically Signed: Donell Gonzalez MD at 1:31 EST , Service support ,
[2018-09-08 00:44] LABS: Anion Gap 8 (5-15); BUN 25 mg/dL (7-18); BUN/Creat Ratio 21.6 RATIO (10-20); Calcium,Total 8.2 mg/dL (8.5-10.1); Chloride 107 mmol/L (98-107); Creatinine, Serum 1.16 mg/dL (0.55-1.02); EST Glomerular Filtration Rate 49 mL/min (>60); Est Glom Filt Rate - Afr Amer 60 mL/min (>60); Estimated Creatinine Clearance 69.76 ml/min; Glucose 111 mg/dL (74-106); Potassium 4.2 mmol/L (3.5-5.1); Sodium Level 143 mmol/L (136-145)
[2018-09-08 01:28] VITALS: BP 107/49; PULSE 64; RESP 22; O2SAT 95
--- NOTE | 2018-09-08 01:57 | ED.VISSUMM ---
- ER Visit Summary Date of Service: 09/08/18 Chief Complaint: Palpitations History of Present Illness: The patient is a 68 F who presents with palpitations that began tonight. Patient states she was at home when she felt like she went into atrial fibrillation. Patient states she has a history of paroxysmal atrial fibrillation and felt similar to prior episodes. Patient states she took 120 mg of Cardizem today and weight of approximately 1 hour. Patient felt no better after this. Patient came to the emergency department. Patient admits to some nausea and some shortness of breath. Patient denies any vomiting. Patient denies any diaphoresis. Patient denies any cough or fever. Physical Examination: Vital signs are stable. Patient is afebrile. Patient is in no acute distress. Oral mucosa is pink and moist. Neck is supple. Trachea is midline. There is no JVD noted. Heart was regular rate and rhythm. Lungs are clear and equal bilaterally. Abdomen is soft. Bowel sounds are normal. There is no tenderness. Cranial nerves II through XII are intact. There are no focal motor or sensory deficits noted. The remaining physical exam is within normal limits. Test Results: EKG showed normal sinus rhythm with a rate of 79. There are no acute ST or T wave changes. This was unchanged compared to previous EKG dated 06/26/2018. PA and lateral chest x-ray was obtained. There is no acute cardiopulmonary process. CBC, basic metabolic profile, troponin were obtained and were all within normal limits with the exception of a slightly elevated creatinine of 1.16 which is chronic for the patient. Emergency Department Course and Treatment: Patient was given aspirin here. Patient had no further episodes of chest pain or palpitations. Patient was instructed to follow-up with her primary care physician in 5-7 days. Patient was instructed to return if worse in any way. Patient understood and was agreeable with the plan. All questions were answered. Disposition: Discharged home Impression: Paroxysmal atrial fibrillation This note was generated with [employer] dictation software. It may contain incorrect words, spelling, and punctuation that were not noted in review of the chart prior to signing ED Disposition - Plan for ED Patient: Disposition: Home or Assisted Living Chief Complaint: Palpitations Diagnosis: Paroxysmal atrial fibrillation Instructions: ED Palpitations, ED Afib Referrals: Bird Garza MD [Primary Care Provider] -
[2018-09-08 02:05] VITALS: BP 95/77; PULSE 61; RESP 20; O2SAT 95
== END 2018-09-08 02:15 | disposition home or self-care (01) ==
PROVIDERS: Emergency Provider Emergency Medicine; Family Provider Family Medicine; PCP Family Medicine
DX: I48.0 Paroxysmal atrial fibrillation (principal); I10 Essential (primary) hypertension; E11.9 Type 2 diabetes mellitus without complications; Z95.2 Presence of prosthetic heart valve; Z79.82 Long term (current) use of aspirin; Z79.01 Long term (current)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; Z79.899 Other long term (current) drug therapy
CPT/HCPCS: 71046; 80048; 84484; 85025; 93005; 99285; A4216

== ENCOUNTER 2018-09-20 10:51 | Outpatient (RCR) | payer MEDICARE, OTHER, SELFPAY ==
[2018-09-18 14:09] VITALS: BMI 48.9
[2018-09-20 11:19] LABS: International Normalized Ratio 2.3; Prothrombin Time (Protime)PT. 25.6 SECONDS (11.7-14.9)
== END 2018-09-20 11:51 | disposition home or self-care (01) ==
LOC: LAB 10:51
PROVIDERS: Family Provider Family Medicine; PCP Family Medicine; Visit Provider Internal Medicine Cardiovascular Disease
DX: I48.91 Unspecified atrial fibrillation (principal); I97.89 Other postprocedural complications and disorders of the circulatory system, not elsewhere classified
CPT/HCPCS: 36415; 85610

== ENCOUNTER → 2018-09-25 12:11 | Outpatient (CLI) | payer MEDICARE, OTHER, SELFPAY ==
[2018-09-25 12:05] VITALS: BMI 44.8
[2018-09-25 12:18] LABS: Bacteria 0 SEEN /hpf (None Seen); Mucous, Urine 0 SEEN /hpf (<or=2+); Red Blood Cells-Urine 0 SEEN /hpf (0-5)
[2018-09-25 13:33] LABS: International Normalized Ratio 2.1; Prothrombin Time (Protime)PT. 23.3 SECONDS (11.7-14.9)
[2018-09-25 13:40] LABS: Color, Urine Yellow (Yellow); Glucose, Dipstick Normal (Normal); Ketone-Dipstick Negative (Negative); Leukocyte Esterase-Dipstick Negative /ul (Negative); Nitrite-Dipstick Negative (Negative); Occult Blood-Urine Negative /ul (Negative); Protein-Dipstick Negative (Negative); Urine Bilirubin Dipstick Negative (Negative); Urine Clarity Clear (Clear); Urine Urobilinogen Normal (Normal); Urine pH 6.5 (5.0 - 8.0)
[2018-09-25 13:41] LABS: Squamous Epithelial Cells - UA 0-5 SEEN /hpf (5-10); White Blood Cells 0-5 SEEN /hpf (0-5)
[2018-09-25 13:52] LABS: Anion Gap 6 (5-15); BUN 23 mg/dL (7-18); Calcium,Total 9.1 mg/dL (8.5-10.1); Chloride 104 mmol/L (98-107); EST Glomerular Filtration Rate 59 mL/min (>60); Est Glom Filt Rate - Afr Amer 71 mL/min (>60); Glucose 83 mg/dL (74-106); Sodium Level 141 mmol/L (136-145)
[2018-09-25 14:23] LABS: Hematocrit 39.9 % (37-47); Hemoglobin 12.6 g/dl (12.0-15.0); Mean Corp Hgb Conc 31.6 g/gl (32-36); Mean Corpuscular Hgb 31.7 pg (27.0-32.0); Mean Corpuscular Volume 100.3 fL (81-99); Mean Platelet Vol. 10.5 fl (6.2-12.0); Platelet Count 222 K/mm3 (150-450); RBC Distribution Width CV 14.3 % (11.6-14.6); RBC Distribution Width SD 51.6 fl (35.1-43.9); Red Blood Count 3.98 M/mm3 (4.2-5.4); White Blood Count 6.7 K/mm3 (4.4-11.0)
[2018-09-25 14:28] LABS: Scan Indicated on CBC? Y/N NO
== END ==
PROVIDERS: Family Provider Family Medicine; PCP Family Medicine; Referring Provider Internal Medicine Cardiovascular Disease; Visit Provider Internal Medicine Cardiovascular Disease
DX: I49.8 Other specified cardiac arrhythmias (principal); I49.5 Sick sinus syndrome; I48.0 Paroxysmal atrial fibrillation; Z95.2 Presence of prosthetic heart valve
CPT/HCPCS: 36415; 80048; 81001; 85027; 85610

== ENCOUNTER → 2018-09-27 13:36 | Outpatient (CLI) | payer MEDICARE, OTHER, SELFPAY ==
[2018-09-25 12:05] VITALS: BMI 44.8
--- NOTE | 2018-09-27 13:37 | CDU_ITS ---
Reason For Study: Carotid Bruit Rt. Velocities/BP Lt. Velocities/BP Prox CCA 75/14 cm/sec. Prox CCA 84/21 cm/sec. Mid CCA 61/15 cm/sec. Mid CCA 70/19 cm/sec. Dist CCA 73/18 cm/sec. Dist CCA 83/23 cm/sec. Prox ICA 103/24 cm/sec. Prox ICA 88/22 cm/sec. Mid ICA 89/22 cm/sec. Mid ICA 92/22 cm/sec. Dist ICA 90/31 cm/sec. Dist ICA 113/33 cm/sec. Rt. ICA/CCA = 1.69. Lt. ICA/CCA = 1.61. Prox ECA 103/14 cm/sec. Prox ECA 155/18 cm/sec. Rt. Vert. 51/10 cm/sec. Lt. Vert. 73/19 cm/sec. Right Extracranial There is heterogeneous, irregular atherosclerotic plaque noted in the right common carotid artery. There is heterogeneous, irregular atherosclerotic plaque noted in the right internal carotid artery. There is heterogeneous, smooth atherosclerotic plaque noted in the right external carotid artery. Antegrade flow is noted in the right vertebral artery. Left Extracranial There is intimal thickening but no significant atherosclerotic plaque noted in the left common carotid artery. There is heterogeneous, irregular atherosclerotic plaque noted in the left internal carotid artery. There is heterogeneous, irregular atherosclerotic plaque noted in the left external carotid artery. Antegrade flow is noted in the left vertebral artery. Procedure Carotid Duplex [id number]. Exam performed in department. Interpretation Summary Calcific irregular plague at the proximal right internal carotid with <50% stenosis Calcific irregular plague at the proximal left internal carotid with <50% stenosis. Normal flow right external carotid with mild disease on the left Patent and antegrade vertebrals bilaterally No significant change from 09/22/16 Ordering Physician: Julissa Balbuena Referring Physician: Bird Garza Performed By: Francesca Macdonald RDCS, RVT
== END ==
PROVIDERS: Family Provider Family Medicine; PCP Family Medicine; Referring Provider Physician Assistant Medical; Visit Provider Physician Assistant Medical
DX: R09.89 Other specified symptoms and signs involving the circulatory and respiratory systems (principal)
CPT/HCPCS: 93880

== ENCOUNTER 2018-10-09 10:21 | Day surgery (SDC) | payer MEDICARE, OTHER, SELFPAY ==
[2018-09-25 12:05] VITALS: BMI 44.8
[2018-09-28 07:49] VITALS: BMI 45.2
[2018-10-09] VITALS (11 sets, daily range): BP systolic 103–141; BP diastolic 40–70; PULSE 60–70; RESP 14–16; TEMP 36.6–36.8; O2SAT 95–98
[2018-10-09 10:35] LABS: Prothrombin Time Fingerstick 11.7 SEC (11.9-14.4)
[2018-10-09] MEDS: Cefazolin 2 GM in 0.9% Normal Saline 100 ML IV (15:14)
[2018-10-09] MEDS: Atorvastatin Calcium 10 MG Tablet PO (21:35)
[2018-10-09] MEDS: Sertraline 50 MG Tablet PO (21:35)
[2018-10-09] MEDS: Acetaminophen 325 MG Tablet PO (21:44)
[2018-10-09] MEDS: clonazePAM 1 MG Tablet PO (21:44)
[2018-10-10 02:50] VITALS: PULSE 60
[2018-10-10 03:46] VITALS: BP 149/74; PULSE 61; RESP 20; TEMP 36.6; O2SAT 97
[2018-10-10] MEDS: Acetaminophen 325 MG Tablet PO (05:45)
[2018-10-10] MEDS: Levothyroxine 50 MCG Tablet PO (05:45)
--- NOTE | 2018-10-10 05:55 | RAD_ITS ---
STUDY: X-RAY CHEST REASON FOR EXAM: Female, 68 years old. Pacemaker insertion. TECHNIQUE: AP and lateral views of the chest. COMPARISON: Comparison is made with prior study dated September 08, 2018. FINDINGS: A left-sided dual-chamber pacemaker has been placed. There is no evidence of pneumothorax. The lungs are clear and expanded. There is no demonstrated pleural abnormality. Sternal cerclage wires and vascular clips are present from a prior sternotomy and coronary artery bypass graft procedure (CABG). Normal mediastinum and armando. Normal visualized pulmonary arteries. Normal visualized aortic arch and descending thoracic aorta. There are diffuse degenerative changes of the visualized thoracic spine. Normal visualized ribs, clavicles, and shoulders. There is no demonstrated abnormality of the visualized soft tissue structures of the upper abdomen. RAD/Chest PA and Lateral IMPRESSION: A left-sided dual chamber pacemaker has been placed. The leads are in good position. There is no evidence of pneumothorax. Electronically Signed: Peter Morillo MD at 8:14 EST Tel [phone], Service support ,
[2018-10-10 07:00] VITALS: PULSE 60
[2018-10-10] MEDS: Calcitriol 0.25 MCG Capsule PO (08:13)
[2018-10-10] MEDS: Aspirin E.C. 81 MG Tablet PO (08:13)
[2018-10-10] MEDS: Furosemide 40 MG Tablet PO (08:13)
[2018-10-10] MEDS: Lisinopril 5 MG Tablet PO (08:13)
[2018-10-10] MEDS: Hydroxychloroquine 200 MG Tablet 400 MG PO (08:13)
--- NOTE | 2018-10-10 08:18 | PN.CARD_ITS ---
Subjectve: Patient seen and evaluated. Appears to be doing well. Objective: Vital Signs Temp Pulse Resp BP Pulse Ox 97.8 F 60 20 H 149/74 H 97 10/10/18 03:46 10/10/18 07:00 10/10/18 03:46 10/10/18 03:46 10/10/18 03:46 Oxygen Delivery Method Room Air Weight: 209 lb Body Mass Index (BMI) 45.2 Intake and Output for Last 24 Hours 10/08/18 10/09/18 10/10/18 23:59 23:59 23:59 Intake Total 800 / 800 100 / 100 Output Total 800 / 800 Balance 0 / 0 100 / 100 General: Awake, Alert, Oriented x 3 HEENT: PERRL, EOMI, Sclera Non Icteric Neck: Supple, Good ROM, No Lymph Node Enlargement Lungs: Clear to auscultation Cardiovascular: Regular Rhythm, Normal S1, Normal S2, No Murmurs, No Rubs, No Gallops Vascular: No Carotid Bruits, Normal Femoral Pulses, Normal Radial Pulses, Normal Dorsalis Pedal Pulse, Normal Posterior Tibial Pulses Abdomen: Bowel Sounds Present, Soft, Non Tender, No HSM, No Organomegaly Extremities: No Cyanosis, No Clubbing, No edema Neurological: No Focal Motor or Sensory Deficit Psych/Mental Status: Appropriate 10/09/18 10:31: INR 1.00 Rhythm: EKG: ECHO: Stress Test: Cardiac Cath: PCI: CT Surgery: Holter monitor: EPS: PPM: CXR: Chest CT Scan: Medical Necessity - Tobacco Use Smoking Status: Never smoker Assessment/Plan 1. Status post pacemaker implantation for sick sinus syndrome and paroxysmal atrial fibrillation * Pacemaker interrogation this morning demonstrates adequate numbers * Chest x-ray demonstrates adequate positioning * * Patient will be discharged for outpatient follow-up.
[2018-10-10 08:20] VITALS: BP 138/68; PULSE 62; RESP 16; TEMP 36.6; O2SAT 98
--- NOTE | 2018-10-10 08:22 | DCINST_ITS ---
Discharge Diet: No Restrictions Discharge Activity: May Not Drive May resume sexual activity in: 2 weeks Call your doctor if your incision/area has: Continuous Slow Oozing, Sudden Increased Bleeding, Increased Pain/ Swelling, Increased Redness, Foul Smelling Discharge, Swelling at the incision site Call your doctor if you observe: Fever of 101 or Higher, Shortness of breath, Dizziness, Fainting spells, Swelling in the ankles, Chest pain, Prolonged hiccoughing, Increased palpitations (irregular heartbeat) Change Dressing in (Days):: 3 Remove Dressing in (days):: 3 Cleanse incision/area with: Keep Dressing Clean & Dry Additional Dressing/Incision Instructions:: When dressing is removed, wash and dry incision. Keep covered with a light bandage if it is rubbing against your clothing. Do not cover the incision with an airtight bandage. Change the bandage daily. Do not remove steri strips. The strips will fall off on their own. Additional Instructions: Signs and Symptoms to Report to Your Doctor at Once - call your doctor's office or [facility] Registry ([phone]) Call [phone] or go to the nearest Emergency Department if you feel you need urgent care. *Infection (fever, increased redness or swelling at the incision site, drainage from the incision increased pain at the pacemaker site) *Shortness of breath *Dizziness *Fainting spells *Swelling in the ankles *Chest pain *Prolonged hiccoughing *Increased palpitaitons (irregular heartbeat) Medications: Take your pain medication as directed. Refer to your discharge instruction sheet for a list of medications you are to take. Allergies/Adverse Reactions: Allergies amiodarone Allergy (Unknown, Verified 09/25/18 11:16) Unknown ciprofloxacin HCl [From Cipro] Allergy (Verified 09/25/18 11:16) Unknown insulin glargine, human recombin. a [From Lantus] Allergy (Verified 09/25/18 11:16) Unknown iodine Allergy (Verified 09/25/18 11:16) Hives prednisone Adverse Reaction (Severe, Verified 09/25/18 11:16) Visual changes, glaucoma diltiazem Adverse Reaction (Mild, Verified 09/25/18 11:16) Dizziness benjamin Adverse Reaction (Severe, Uncoded 09/07/18 23:33) Neck pain & tingling Medications to take at Discharge Aspirin E.C. [Ecotrin] 81 mg PO DAILY@0800 09/21/16 Hydroxychloroquine [Plaquenil] 400 mg PO DAILY 09/21/16 Levothyroxine Sodium 50 mcg PO DAILY 09/21/16 Clonazepam [Klonopin] 1 mg PO QHS 07/18/17 Sertraline HCl [Zoloft] 50 mg PO DAILY 07/18/17 atorvastatin 10 mg tablet 10 mg PO QHS tab 12/12/17 magnesium oxide 400 mg (241.3 mg magnesium) tablet 400 mg PO BID #180 tab 03/06/18 ferrous sulfate 324 mg (65 mg iron) tablet,delayed release 324 mg PO BID #60 tab 03/31/18 Diltiazem [Cardizem] 120 mg PO PRN PRN 09/07/18 Methotrexate 20 mg PO Q7D 09/07/18 furosemide 40 mg tablet 40 mg PO DAILY #90 tab 09/11/18 lisinopril 5 mg tablet 5 mg PO DAILY #90 tab 09/11/18 warfarin 5 mg tablet 5 mg PO .COMPLEX #100 tab 09/13/18 calcitriol 0.25 mcg capsule 0.25 mcg PO Q OTHER DAY cap 09/25/18 Primary Care Physician: Bird Garza MD [Primary Care Provider] - Test Results: Test results from this visit will be discussed in further detail at your follow- up appointment, if applicable. When: [facility] AT 2PM ON 10/16/2018 Proposed Discharge Date: 10/10/18
--- NOTE | 2018-10-11 10:51 | CL.IE_ITS ---
Patient: GRACIELA KIRK Study Date: 10/09/2018 Performing: Angel Villalobos MD : 1950 Age: 68 Gender: female PROCEDURES PERFORMED [id number] PACER INSERT+DUAL LEADS INDICATIONS Sinoatrial node dysfunction/Sick sinus syndrome PROCEDURE DETAILS The patient was brought to the Catheterization Lab in the postabsorptive nonsedated state. Infor med consent was obtained prior to the procedure. Local anesthetic was given subcutaneously to the le ft upper chest area with Lidocaine 2%. Incision was made to the left upper chest. Access was achieved and a guidewire was advanced into the left subclavian vein. PPM ventricular lead was inserted / posi tioned to right ventricular septal wall. PPM ventricular lead testing performed. PPM ventricular lead testing performed. PPM atrial lead was inserted / positioned to the right atrial appendage. PPM atri al lead testing performed. The Atrial lead sutured in place with 3-0 Silk. The Ventricular PM lead ash tured in place with 3-0 Silk. Device pocket was irrigated with antibiotic. PPM generator was attached to the lead(s) and inserted into the pocket. Subcutaneous closure was completed with 3-0 Vicryl. Ski n closure was completed with 4-0 Vicryl. Steri-strips applied to left subclavicular incision. Instrument, sponge, and needle counts were noted to be normal. The patient tolerated the pr ocedure well. Estimated Blood Loss: < 10 mls IMPLANTED / EX-PLANTED DEVICES IMPLANTED DEVICE(S): PPM Atrial lead - Director Visual: [employer], Model # Ingevity MRI 7740 , Serial # [id number] PPM Ventricular lead - Director Visual: [employer], Model # Ingevity MRI 7741 , Serial # [id number] DEVICE PARAMETERS ATRIAL LEAD PARAMETERS: P wave- 2.2 (mV) Current- 1.3 (mA) threshold- 0.7 (V) impedence- 558 (OHMS) VENTRICULAR LEAD PARAMETERS: R wave- 18.5 (mV) Current- 0.4 (mA) threshold- 0.4 (V) impedence- 1231 (OHMS) 10V test, no diaphragmatic capture DEVICE PARAMETERS: Mode- DDD Lower rate- 60 Upper rate- 130 CONCLUSIONS / RECOMMENDATIONS Device Conclusions: Successful implantation of a dual chamber pacemaker Device Recommendations: Follow up with Primary Care Physician PROCEDURE MEDICATIONS Versed 1 mg IV Fentanyl 50 mcg IV Versed 1 mg IV Versed 1 mg IV Fentanyl 25 mcg IV Fentanyl 25 mcg IV Oxygen: 2 L/min via nasal cannula Antibiotic given in appropriate timeframe. Ancef 2 Gm IV @ 10/09/2018 12:03:58 Signed By Angel Villalobos MD On 10/11/2018 10:51:21 Angel Villalobos MD
--- OUTSIDE RECORDS SUMMARY | 2018-12-11 20:41 | XMS RPT_ITS ---
:1950 Author Organization [place] Support Name Relationship Address Phone LORI BRITO Unavailable [address] + [place] [address] R Unavailable Unavailable Unavailable ERIKA, YAMILET Unavailable Unavailable + [place] [address] LORI BRITO Unavailable [address] + [place] [address] R Unavailable Unavailable Unavailable ERIKA, YAMILET Unavailable Unavailable + [place] [address] LORI BRITO Unavailable [address] + [place] [address] R Unavailable Unavailable Unavailable ERIKA, YAMILET Unavailable Unavailable + [place] [address] LORI BRITO Unavailable [address] + [place] [address] R Unavailable Unavailable Unavailable ERIKA, YAMILET Unavailable Unavailable + [place] [address] LORI BRITO Unavailable [address] + [place] [address] R Unavailable Unavailable Unavailable ERIKA, YAMILET Unavailable Unavailable + [place] [address] LORI BRITO Unavailable [address] + [place] [address] R Unavailable Unavailable Unavailable ERIKA, YAMILET Unavailable Unavailable + [place] [address] LORI BRITO Unavailable [address] + [place] [address] R Unavailable Unavailable Unavailable ERIKA, YAMILET Unavailable Unavailable + [place] [address] LORI BRITO Unavailable [address] + [place] [address] R Unavailable Unavailable Unavailable ERIKA, YAMILET Unavailable Unavailable + [place] [address] BRITO, LORI Unavailable [address] + [place] [address] R Unavailable Unavailable Unavailable ERIKA, YAMILET Unavailable Unavailable + [place] [address] BRITO, LORI Unavailable [address] + [place] [address] R Unavailable Unavailable Unavailable ERIKA, YAMILET Unavailable Unavailable + [place] [address] BRITO, LORI Unavailable [address] + [place] [address] R Unavailable Unavailable Unavailable ERIKA, YAMILET Unavailable Unavailable + [place] [address] BRITO, LORI Unavailable [address] + [place] [address] R Unavailable Unavailable Unavailable ERIKA, YAMILET Unavailable Unavailable + [place] [address] BRITO, LORI Unavailable [address] + [place] [address] R Unavailable Unavailable Unavailable ERIKA, YAMILET Unavailable Unavailable + [place] [address] BRITO, LORI Unavailable [address] + [place] [address] R Unavailable Unavailable Unavailable ERIKA, YAMILET Unavailable Unavailable + [place] [address] LORI BRITO Unavailable [address] + [place] [address] R Unavailable Unavailable Unavailable ERIKA, YAMILET Unavailable Unavailable + [facility] [place] [address] BRITO, LORI Unavailable [address] + [place] [address] R Unavailable Unavailable Unavailable ERIKA, YAMILET Unavailable Unavailable + [place] [address] LORI BRITO Unavailable [address] + [place] [address] R Unavailable Unavailable Unavailable ERIKA, YAMILET Unavailable Unavailable + [facility] [place] [address] LORI BRITO Unavailable [address] + [place] [address] R Unavailable Unavailable Unavailable ERIKA, YAMILET Unavailable Unavailable + [place] [address] LORI BRITO Unavailable [address] + [place] [address] R Unavailable Unavailable Unavailable ERIKA, YAMILET Unavailable Unavailable + [place] [address] LORI BRITO Unavailable [address] + [place] [address] R Unavailable Unavailable Unavailable ERIKA, YAMILET Unavailable . + [place] [address] BRITO, LORI Unavailable [address] + [place] [address] R Unavailable Unavailable Unavailable ERIKA, YAMILET Unavailable . + [place] [address] BRITO, LORI Unavailable [address] + [place] [address] R Unavailable Unavailable Unavailable ERIKA, YAMILET Unavailable Unavailable + [place] [address] BRITO, LORI Unavailable [address] + [place] [address] R Unavailable Unavailable Unavailable ERIKA, YAMILET Unavailable . + [place] [address] BRITOLORI Unavailable [address] + [place] [address] R Unavailable Unavailable Unavailable ERIKA, YAMILET Unavailable Unavailable + [place] [address] BRITO LORI Unavailable [address] + [place] [address] R Unavailable Unavailable Unavailable ERIKA, YAMILET Unavailable . + [place] [address] LORI BRITO Unavailable [address] + [place] [address] R Unavailable Unavailable Unavailable ERIKA, YAMILET Unavailable . + [place] [address] BRITO LORI Unavailable [address] + [place] [address] R Unavailable Unavailable Unavailable ERIKA, YAMILET Unavailable . + [place] [address] LORI BRITO Unavailable [address] + [place] [address] R Unavailable Unavailable Unavailable ERIKA, YAMILET Unavailable Unavailable + [place] [address] LORI BRITO Unavailable [address] + [place] [address] R Unavailable Unavailable Unavailable ERIKA, YAMILET Unavailable . + [place] [address] LORI BRITO Unavailable [address] + [place] [address] R Unavailable Unavailable Unavailable ERIKA, YAMILET Unavailable Unavailable + [place] [address] LORI BRITO Unavailable [address] + [place] [address] R Unavailable Unavailable Unavailable ERIKA, YAMILET Unavailable Unavailable + [place] [address] LORI BRITO Unavailable [address] + [place] [address] R Unavailable Unavailable Unavailable ERIKA, YAMILET Unavailable Unavailable + [place] [address] LORI BRITO Unavailable [address] + [place] [address] R Unavailable Unavailable Unavailable ERIKA, YAMILET Unavailable Unavailable + [place] [address] LORI BRITO Unavailable [address] + [place] [address] R Unavailable Unavailable Unavailable ERIKA, YAMILET Unavailable Unavailable + [place] [address] LORI BRITO Unavailable [address] + [place] [address] R Unavailable Unavailable Unavailable ERIKA, YAMILET Unavailable . + [place] [address] LORI BRITO Unavailable [address] + [place] [address] R Unavailable Unavailable Unavailable ERIKA, YAMILET Unavailable . + [place] [address] LORI BRITO Unavailable [address] + [place] [address] R Unavailable Unavailable Unavailable ERIKA, YAMILET Unavailable . + [place] [address] LORI BRITO Unavailable [address] + [place] [address] R Unavailable Unavailable Unavailable ERIKA, YAMILET Unavailable . + [place] [address] LORI BRITO Unavailable [address] + [place] [address] R Unavailable Unavailable Unavailable ERIKA, YAMILET Unavailable Unavailable + [place] [address] LORI BRITO Unavailable [address] + [place] [address] R Unavailable Unavailable Unavailable ERIKA, YAMILET Unavailable Unavailable + [place] [address] LORI BRITO Unavailable [address] + [place] [address] R Unavailable Unavailable Unavailable ERIKA, YAMILET Unavailable Unavailable + [place] [address] LORI BRITO Unavailable [address] + [place] [address] R Unavailable Unavailable Unavailable ERIKA, YAMILET Unavailable Unavailable + [place] [address] LORI BRITO Unavailable [address] + [place] [address] R Unavailable Unavailable Unavailable YELENA LORI Unavailable [address] + [place] [address] R Unavailable Unavailable Unavailable BRITO LORI Unavailable [address] + [place] [address] R Unavailable Unavailable Unavailable BRITO LORI Unavailable [address] + [place] [address] R Unavailable Unavailable Unavailable BRITO LORI Unavailable [address] + [place] [address] R Unavailable Unavailable Unavailable CHIRAG BRITO Unavailable [address] + [place] [address] R Unavailable Unavailable Unavailable YELENA CHIRAG Unavailable [address] + [place] [address] R Unavailable Unavailable Unavailable CHIRAG BRITO Unavailable [address] + [place] [address] R Unavailable Unavailable Unavailable BRITO, CHIRAG Unavailable [address] + [place] [address] R Unavailable Unavailable Unavailable BRITO, CHIRAG Unavailable [address] + [place] [address] R Unavailable Unavailable Unavailable BRITO LORI Unavailable [address] + [place] [address] R Unavailable Unavailable Unavailable BRITO, CHIRAG Unavailable [address] + [place] [address] R Unavailable Unavailable Unavailable BRITO, LORI Unavailable [address] + [place] [address] R Unavailable Unavailable Unavailable BRITO, CHIRAG Unavailable [address] + [place] [address] R Unavailable Unavailable Unavailable BRITO, CHIR[place] Unavailable NA + [place], [place] R Unavailable Unavailable Unavailable Care Team Providers Name Role Phone Taz Allen Attending Unavailable Ute Villasenor Referring Unavailable Taz Allen Attending Unavailable Taz Allen Referring Unavailable Garza, Bird Attending Unavailable Garza, Bird Referring Unavailable Garza, Bird Primary Care Unavailable Garza, Bird Primary Care Unavailable Ayush Haines Attending Unavailable Taz Allen Attending Unavailable MOUNA HAM Referring Unavailable Garza, Bird Primary Care Unavailable MOUNA HAM Consulting Unavailable Julissa Balbuena Attending Unavailable Garza, Bird Referring Unavailable Taz Allen Attending Unavailable Garza, Bird Referring Unavailable Garza, Bird Primary Care Unavailable Taz Allen Attending Unavailable GarzaBird Referring Unavailable Taz Allen Attending Unavailable ANTONIO ALLEN Referring Unavailable Garza, Bird Primary Care Unavailable MOUNA HAM Attending Unavailable MOUNA HAM Referring Unavailable Garza, Bird Primary Care Unavailable Taz Allen Attending Unavailable Taz Allen Referring Unavailable Tessy Castillo Attending Unavailable Jose Enrique Macdonald Attending Unavailable Garza, Bird Referring Unavailable Garza, Bird Primary Care Unavailable Taz Allen Attending Unavailable Taz Allen Referring Unavailable Garza, Bird Primary Care Unavailable Jocelyn Gonzalez Attending Unavailable Jose Enrique Macdonald Attending Unavailable Jose Enrique Macdonald H Referring Unavailable Garza, Bird Primary Care [...] Care Unavailable Juan Carlos Wolff Attending Unavailable Tza Allen Attending Unavailable Taz Allen Referring Unavailable [...] Allen Attending Unavailable Garza, Bird Referring Unavailable MoodispaBird gonzalez Attending Unavailable Taz Allen Referring Unavailable Taz [...] Primary Care Unavailable MOUNA HAM Consulting Unavailable Dannielle Stewart Attending Unavailable Garza, Bird Referring Unavailable Wilfredo, [place] Attending Unavailable Wilfredo, Angel Referring Unavailable Garza, Bird Primary Care Unavailable Julissa Balbuena Attending Unavailable Julissa Balbuena Referring Unavailable Garza, Bird Primary Care Unavailable Wilfredo, Angel Attending Unavailable Wilfredo, [place] Referring Unavailable Garza, Bird Primary Care Unavailable Harper Fuller Attending Unavailable Julissa Balbuena Referring Unavailable Garza, Bird Primary Care Unavailable Julissa Balbuena Consulting Unavailable Wilfredo, Angel Attending Unavailable Wilfredo, Angel Referring Unavailable Garza, Bird Primary Care Unavailable Wilfredo, Angel Consulting Unavailable TREVON, LUKE Goldberg Attending Unavailable TAZ ALLEN Referring Unavailable LAHORRA, LUKE Goldberg Referring Unavailable LAHORRA, LUKE Goldberg Referring Unavailable LAHORRA, LUKE Goldberg Referring Unavailable LAHORRA, LUKE Goldberg Referring Unavailable LAHORRA, LUKE Goldberg Admitting Unavailable LALUKE BASSETT Attending Unavailable LUKE LESTER Referring Unavailable HEAVEN BENZ Consulting Unavailable NAHED MACHADO (UPSCALE SECURITY OFFICER) Attending Unavailable GARZA, BIRD SALEEM Referring Unavailable NAHED MACHADO (UPSCALE SECURITY OFFICER) Referring Unavailable NAHED MACHADO (UPSCALE SECURITY OFFICER) Referring Unavailable SOPHIE ROBERSON (UPSCALE SECURITY OFFICER) Attending Unavailable GARZA, BIRD SALEEM Referring Unavailable HARPER HERNANDEZ Attending Unavailable TAZ ALLEN Referring Unavailable LAHORRA, LUKE Goldberg Attending Unavailable TAZ ALLEN Referring Unavailable YVETTE, BIRD Primary Care Unavailable LAHORRA, LUKE Goldberg Referring Unavailable YVETTE, BIRD Primary Care Unavailable LAHORRA, LUKE Goldberg Admitting Unavailable LAHORRA, LUKE Goldberg Attending Unavailable YVETTE, BIRD Primary Care Unavailable LAHORRA, LUKE Goldberg Referring Unavailable BAIRON CAMACHO Consulting Unavailable MD HEAVEN BENZ Consulting Unavailable LAHORRA, LUKE A Referring Unavailable YVETTE, BIRD Primary Care Unavailable LAHORRA, LUKE A Referring Unavailable YVETTE, BRID Primary Care Unavailable LAHORRA, LUKE A Referring [...] Unknown I48.0 - Paroxysmal Dannielle Stewart Active [place] [facility] atrial fibrillation / Community I48.0(ICD-10) Hospital Repository Unknown 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 Community / Z95.2(ICD-10) Hospital Repository Unknown I49.8 - Other Dannielle Stewart Active [facility] specified cardiac Community arrhythmias / Hospital I49.8(ICD-10) Repository Unknown I49.5 - Sick sinus Dannielle Stewart Active [place] [facility] syndrome / Community I49.5(ICD-10) Hospital Repository Unknown E11.9 - Type 2 Bird Garza Active [place] 8 diabetes mellitus Community without complications Hospital / E11.9(ICD-10) Repository Unknown E03.9 - Bird Garza Active [place] [facility] Hypothyroidism, Community unspecified / Hospital E03.9(ICD-10) Repository Active Sick sinus syndrome / [place] I49.5(ICD-10) [facility] 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, 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[place] [facility]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 [facility] Other / Z79.01(ICD-10) [place] Repository Active Encounter for SCHWEIKERT, Active [place] [facility] therapeutic drug level [facility] Other monitoring / [place] Z51.81(ICD-10) Repository Active Other specified SCHWEIKERT, Active [place] [facility] personal risk factors, [facility] Other not elsewhere [place] classified / Repository Z91.89(ICD-10) Active Presence of prosthetic SCHWEIKERT, Active [place] [facility] heart valve / [facility] Other Z95.2(ICD-10) [place] Repository Active Nonrheumatic aortic SCHWEIKERT, Active [place] [facility] (valve) stenosis / [facility] Other I35.0(ICD-10) [place] Repository Active Paroxysmal atrial SCHWEIKERT, Active [place] [facility] fibrillation / [facility] Other I48.0(ICD-10) [place] Repository Active Palpitations / SCHWEIKERT, Active [place] 8 R00.2(ICD-10) [facility] Other [place] Repository Active Other forms of dyspnea SCHWEIKERT, Active [place] [facility] / R06.09(ICD-10) [facility] Other [place] Repository Admitting Unknown / UNK(Unknown) SCHWEIKERT, Active [facility] 8 diagnosis [facility] Repository Unknown I48.91 - Unspecified Taz Allen Active [place] 8 atrial fibrillation / Community I48.91(ICD-10) Hospital Repository Unknown I97.89 - Other Jose Enrique Macdonald Active [place] [facility] postprocedural Community complications and Hospital disorders of the Repository circulatory system, not elsewhere classified / I97.89(ICD-10) Unknown R00.2 - Palpitations / Balbuena, Active [place] [facility] R00.2(ICD-10) Julissa [facility] Repository Unknown Z87.39 - Personal Jose Enrique Macdonald Active [place] 8 history of other Community diseases of the Hospital musculoskeletal system Repository and connective tissue / Z87.39(ICD-10) Unknown D64.9 - Anemia, Roof, Jose Enrique H Active [place] 8 unspecified / Community D64.9(ICD-10) Hospital Repository Unknown R06.00 - Dyspnea, [place], Active [place] [facility] unspecified / [facility] R06.00(ICD-10) Hospital Repository Unknown R94.31 - Abnormal [place], Active [place] 8 electrocardiogram [facility] [ECG] [EKG] / Hospital R94.31(ICD-10) Repository Unknown 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 / Hospital I27.21(ICD-10) Repository Unknown I35.0 - Nonrheumatic Taz Allen Active [place] [facility] aortic (valve) Community stenosis / Hospital I35.0(ICD-10) Repository Unknown R06.02 - Shortness of Wilfredo, [place] Active [place] 8 breath / Community R06.02(ICD-10) Hospital Repository Unknown G47.33 - Obstructive Taz Allen Active [place] 8 sleep apnea (adult) Community (pediatric) / Hospital G47.33(ICD-10) Repository Active Pleural effusion, not DA, [place] Active [place] [facility] elsewhere classified / ([facility]) Clinic Other J90(ICD-10) [place] Repository Unknown E78.00 - Pure Alejandro Taz Active [place] 8 hypercholesterolemia, Community unspecified / Hospital E78.00(ICD-10) Repository Active Dependence on other LAHORRA, Active [place] [facility] enabling machines and [facility] Other devices / [place] Z99.89(ICD-10) Repository Active Central sleep apnea in LAHORRA, Active [place] [facility] conditions classified [place] [facility] Other elsewhere / [place] G47.37(ICD-10) Repository Active Secondary pulmonary LAHORRA, Active [place] [facility] arterial hypertension [place] [facility] Other / I27.21(ICD-10) [place] Repository Active Hypoxemia / LAHORRA, Active [place] [facility] R09.02(ICD-10) [facility] Clinic Other [place] Repository Active Essential (primary) LAHORRA, Active [place] [facility] hypertension / [facility] Clinic Other I10(ICD-10) [place] Repository Active Shock, unspecified / LAHORRA, Active [place] 8 R57.9(ICD-10) [facility] Clinic Other [place] Repository Active Type 2 diabetes NA [facility] 8 mellitus without Clinic Other complications / [place] E11.9(ICD-10) Repository Active Hyperlipidemia, NA [facility] unspecified / Clinic Other E78.5(ICD-10) [place] Repository Active Unspecified symptoms NA [facility] 8 and signs involving Clinic Other the genitourinary [place] system / R39.9(ICD-10) Repository Active Encounter for other NA [facility] 8 preprocedural Clinic Other examination / [place] Z01.818(ICD-10) Repository Active Obstructive sleep NA [facility] 8 apnea (adult) Clinic Other (pediatric) / [place] G47.33(ICD-10) Repository Unknown M06.9 - Rheumatoid MOUNA HAM [facility] 8 arthritis, unspecified Community / M06.9(ICD-10) Hospital Repository Active Encounter for LAHORRA, Active [place] [facility] screening for other [facility] Clinic Other disorder / [place] Z13.89(ICD-10) Repository Unknown R06.81 - Apnea, not Taz Allen Active [place] [facility] elsewhere classified / Community R06.81(ICD-10) Hospital Repository Unknown E66.9 - Obesity, Taz Allen Active [place] [facility] unspecified / Community E66.9(ICD-10) Hospital Repository PROCEDURES PROCEDURES No Procedure Records FoundRESULTS RESULTS DISCHARGE INSTRUCTION Observed: 10/10/2018 Status: F Source: [place] 8:22 AM [facility] REPOSITORY [facility] Medical Records Department [address] [place] [address] Instructions for Home/Discharge Instructions 10/10/18817 MR#: [id number] Acct: [id number] Name: GRACIELA BRITO Rep #: [id number] : 1950 68 From: Angel Villalobos MD PCP: Bird Garza MD [place] [facility] [place] Diet: No Restrictions Discharge Activity: May [...] call your doctor's office or Doctor's Registry ([phone]) Call 911 or go to the nearest [...] [facility] REPOSITORY [facility] Imaging Services [address] [place] [address] Chest PA and Lateral MR#: [id number] Acct: [id number] Name: BRITOGRACIELA Yusuf Rep #: [id number] : 1950 F 68 From: Peter Morillo MD PCP: Bird Garza MD [place] [facility] [place]: Chest PA and Lateral Date of Exam: 10/10/18 Exam# [id number] Ordering Dr: Angel Villalobos MD STUDY: X-RAY [...] Peter Morillo MD at 8:14 EST Tel [phone], Service support , CC: Angel Villalobos MD; Bird Garza MD Title Insurance Agent: Signed PROTIME W/INR Collected: 10/09/2018 Status: F Source: [place] 10:31 AM [facility] REPOSITORY TYPE CODE TESTS RESULT OUT OF REFERENCE UNITS RANGE LAB L9200.1001 11.9-14.4 SEC Low PROTIME ISTAT 11.7 Result Comment: Reference Range 11.9 - 14.4 LAB L9200.2000 Normal INR ISTAT 1.00 Result Comment: Critical Value > 3.5 Performed By: #### L9200.0000 #### [facility] Laboratory Point of Care [address] [place] [address] CARDIOLOGY VISIT Observed: 10/02/2018 Status: F Source: [place] REPORT 5:06 PM [facility] REPOSITORY [facility] [address] [place] [address] OFFICE VISIT Date of Service: 09/25/18 MR#: [id number] Acct: [id number] Name: GRACIELA BRITO Rep #: [id number] : 1950 Provider: Julissa Balbuena Age/Sex: 68/F Location: 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 Lester @ [facility] Plan Recent echocardiogram has been reviewed. [...] and moderate pulmonary HTN. Recommend eval at [facility] for TAVR. Labs LDL Cholesterol 76 mg/dL (0-130) 09/04/18 HDL Cholesterol 59 mg/dL (40-) 09/04/18 Triglycerides 104 mg/dL (-199) 09/04/18 VLDL Cholesterol 21 mg/dL (5-40) 09/04/18 Diagnostics Electrocardiogram 09/08/18 Pacemaker Check 09/25/18 Chest X-Ray 09/08/18 10/02/18 1706 <Electronically signed by Julissa LEIJA> Date Julissa LEIJA Cosigner Signature: Date (if applicable) CC: Bird Garza MD [facility] Observed: 09/29/2018 Status: COMPLETED Source: [place] 12:00 AM CLINIC OTHER CAMPUS REPOSITORY Telephone (AGCARDPHRA) GRACIELA BRITO ([id number]) 1950 F Date Time Provider Department 09/29/18 HARPER HERNANDEZ During your visit today, we recorded the following information about you: Harper Hernandez MD 09/29/2018 11:57 AM Signed I saw Ms. Brito back in August and I thought that she might need a pacemaker. I told her I would send a note with my thoughts and recommendations to her extrusion bender, Dr. Allen, and then she could follow up with him and discuss further. Has she seen him yet? Harper Hernandez MD September 29, 2018 11:57 AM Monse Stearns LPN 09/29/2018 12:52 PM Signed I called and spoke to and she states she met with Julissa ('s BMET) and has decided to get the pacemaker. states she is scheduled for the procedure on Tuesday with in [place]. SEAN Rushing MD 09/29/2018 1:07 PM Signed [...] History of eye disorder [Z86.69] INVALID FOR* FDC current use of anticoagulant therapy *INVALID FOR* Palpitations [R00.2] INVALID FOR* Paroxysmal atrial fibrillation (HCC) [I48.0] INVALID FOR* Atrial fibrillation (HCC) [I48.91] INVALID FOR*08/24/2018 Presence of prosthetic heart valve [Z95.2] INVALID FOR* At risk for stroke [Z91.89] More... 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 Procedure Carotid Duplex 53993. Exam performed in department. Interpretation Summary Calcific [...] Date Dictated: 09/27/18 135 Date Transcribed: 09/27/181452 Title Insurance Agent: Signed PACEMAKER CHECK Observed: 09/26/2018 Status: F Source: [place] 10:08 AM [facility] REPOSITORY [facility] [address] [place] [address] Pacemaker Check Date of Service: 09/25/181356 MR#: [id number] Acct: [id number] Name: GRACIELA BRITO Rep #: [id number] : 1950 From: Dannielle Stewart Age/Sex: 68/F [place] [facility] [place]: Signed Billing Codes Nurse, Teaching, Wound Ck (no charge): Yes 09/25/18 135 <Electronically signed by Dannielle Stewart > Date Dannielle Stewart 09/26/18 1008<Electronically signed by Taz Allen MD> Dennis Signature: Date (if applicable) Taz Allen MD CC: PROTHROMBIN TIME W/INR Collected: 09/25/2018 Status: F Source: [place] 12:17 PM [facility] REPOSITORY TYPE CODE TESTS RESULT OUT OF RANGE REFERENCE UNITS LAB L300.4150 11.7-14.9 SECONDS High PROTIME 23.3 LAB L300.4200 Normal INR 2.1 Performed By: #### L300.3900 #### [facility] [address] [place], [place], [address] URINALYSIS, COMPLETE Collected: 09/25/2018 Status: F Source: [place] 12:17 PM [facility] REPOSITORY Order Comment: How was Urine Obtained? COTTON EXPERT TO SPECIFY TYPE CODE TESTS RESULT OUT [...] URINE SEEN Performed By: #### L400.0001 #### [facility] [address] [place], [address] BASIC METABOLIC Collected: 09/25/2018 Status: F Source: [...] GAP 6 Performed By: #### L500.2500 #### [facility] [address] [facility] [place], [place], [address] CBC-COMPLETE BLOOD CNT Collected: 09/25/2018 Status: F [...] MPV 10.5 Performed By: #### L100.0500 #### [facility] [address] [facility] [place], [address] PROTHROMBIN TIME W/INR Collected: 09/20/2018 Status: F Source: [place] 10:59 AM [facility] REPOSITORY TYPE CODE TESTS RESULT OUT OF RANGE REFERENCE UNITS LAB L300.4150 11.7-14.9 SECONDS High PROTIME 25.6 LAB L300.4200 Normal INR 2.3 Performed By: #### L300.3900 #### [facility] [address] [place], [address] 12 LEAD ELECTROCARDIOGRAM Observed: 09/13/2018 Status: F Source: [place] 2:37 PM [facility] REPOSITORY [facility] [address] [place] [address] 12 Lead EKG 09/07/18 2342 MR#: [id number] Acct: [id number] Name: GRACIELA BRITO Rep #: [id number] : 1950 68 From: Taz Allen MD [...] Abnormal ECG Confirmed by TAZ ALLEN ([id number]), production editor DIANE NAVARRETE ([id number]) on 09/13/2018 2:37:06 PM Referred By: Bird Garza Confirmed By:TAZ ALLEN 09/13/18 1437 Date Taz Allen MD CC: Ayush Haines DO; Bird Garza MD Signed EMERGENCY DEPARTMENT Observed: 09/08/2018 Status: F Source: [place] SUMMARY 2:03 AM [facility] REPOSITORY [facility] Medical Records Department [address] [place] [address] Emergency Department Summary 09/08/18 0157 MR#: [id number] Acct: [id number] Name: GRACIELA BRITO Rep #: [id number] : 1950 68 From: Ayush Haines DO [...] atrial fibrillation This note was generated with Unowhyation software. It may contain incorrect words, spelling, [...] your Primary Care Provider. Call [facility] ([phone]) or report to the closest Emergency Room. [...] Lymph 1.69 Performed By: #### L100.0100 #### [facility] [address] [place], [address] BASIC METABOLIC Collected: 09/08/2018 Status: F Source: [place] PROFILE ([facility]) 12:14 AM [facility] - [...] 8 Performed By: #### L500.2500, L501.4010 #### [facility] [address] [place], [address] TROPONIN-I Collected: 09/08/2018 Status: F Source: [place] 12:14 AM [facility] REPOSITORY TYPE CODE TESTS RESULT OUT OF RANGE REFERENCE UNITS LAB L501.4010 <0.045 ng/mL Normal < 0.015 TROPONIN-I Result Comment: TROPONIN-I EXPECTED VALUES <0.045 Negative 0.045 - 0.590 Consistent with Cardiac Damage > OR = 0.600 Critical Value Not every elevated troponin is indicative of MS. These values should be used with clinical judgement in examining the patient's clinical picture for diagnosis. To establish a diagnosis of MS versus myocardial injury, there must be a demonstrated rise and/or fall in the troponin values, in addition to ischemic symptoms, EKG changes, new regional wall motion abnormality, and/or angiographical evidence. PLEASE NOTE: REFERENCE RANGES EDITED 18 Performed By: #### L500.2500, L501.4010 #### [facility] [address] [place], [address] CHEST PA AND LATERAL Observed: 09/08/2018 Status: F Source: [place] 12:04 AM [facility] REPOSITORY [facility] Imaging Services [address] [place] [address] Chest PA and Lateral MR#: [id number] Acct: [id number] Name: GRACIELA BRITO Rep #: [id number] : 1950 F 68 From: Donell Gonzalez PCP: Bird Garza MD Status: REG ER Study: Chest PA and Lateral Date of Exam: 09/08/18 Exam# [id number] Ordering Dr: Ayush Haines DO STUDY: X-RAY [...] CC: Ayush Haines DO; Bird Garza MD Title Insurance Agent: Signed MICROALB:CREAT Collected: 09/04/2018 Status: F Source: [place] RATIO,RANDOM UR 11:12 AM [facility] REPOSITORY TYPE CODE TESTS RESULT OUT OF RANGE REFERENCE UNITS LAB L501.1200 NO RANGE EST. mg/dL Normal UR CREAT 275.00 LAB L502.0500 NO RANGE EST. mg/L Normal 44.5 MICROALBUMIN ,UR LAB L502.0600 <30 mg/g CRE mg/g CRE Normal 16.2 MALB:CREAT Performed By: #### L502.0250 #### [facility] [address] [place], [address] BASIC METABOLIC Collected: 09/04/2018 Status: F Source: [...] 9 Performed By: #### L500.2500, L500.3400, L500.4100, L501.15185, L501.9310, L501.9520 #### [facility] [address], [address] LIVER PROFILE Collected: 09/04/2018 Status: F Source: [place] 11:12 AM [facility] - [...] 0.12 Performed By: #### L500.2500, L500.3400, L500.4100, L501.58040, L501.9310, L501.9520 #### [facility] [address] [place], [place], [address] LIPID PROFILE Collected: 09/04/2018 Status: F Source: [place] 11:12 AM [facility] - [...] 21 Performed By: #### L500.2500, L500.3400, L500.4100, L501.88079, L501.9310, L501.9520 #### [facility] [address] [place], [address] FREE T3 Collected: 09/04/2018 Status: F Source: [place] 11:12 AM [facility] REPOSITORY TYPE CODE TESTS RESULT OUT OF RANGE REFERENCE UNITS LAB L501.84311 2.18-3.98 pg/mL Normal FREE T3 2.3 Performed By: #### L500.2500, L500.3400, L500.4100, L501.94062, L501.9310, L501.9520 #### [facility] [address] [place], [address] T4 TOTAL, THYROXIN Collected: 09/04/2018 Status: F Source: [place] 11:12 AM [facility] REPOSITORY TYPE CODE TESTS RESULT OUT OF RANGE REFERENCE UNITS LAB L501.9310 4.8-13.9 ug/dL T4 Normal THYROXIN 10.8 Performed By: #### L500.2500, L500.3400, L500.4100, L501.18475, L501.9310, L501.9520 #### [facility] [address] [place], [place], [address] THYROID STIM HORMONE Collected: 09/04/2018 Status: F Source: [place] ([facility]) 11:12 AM [facility] REPOSITORY TYPE CODE TESTS RESULT OUT OF RANGE REFERENCE UNITS LAB L501.9520 0.358-3.74 uIU/mL Normal TSH 2.78 Performed By: #### L500.2500, L500.3400, L500.4100, L501.62006, L501.9310, L501.9520 #### [facility] [address] [facility] [address] [place], [place], [address] PROGRESS Observed: 08/24/2018 Status: COMPLETED Source: [place] 10:02 AM [facility] OTHER [facility]US REPOSITORY HNO ID: [id number] Author: Harper Hernandez Service: (none) Author Type: Physician Type: Progress Notes Filed: 08/24/2018 8:09 PM Note Text: PRIMARY CARE PHYSICIAN: Bird Garza MD [address] [facility] [address] [place] [address] REFERRING PHYSICIAN: Taz Allen MD (Dr) [address] [facility] [phone] Patient Care Team: Bird Garza as PCP - General (Family Practice) Taz Allen (Cardiology) Indu Rm (Rheumatology) Silviano Vergara (Nephrology) Mauricio Feldman (Pulmonary Disease) CHIEF COMPLAINT: Evaluation for arrhythmia HISTORY OF PRESENT ILLNESS: Ms. Brito is a 68 year old female who presents today for evaluation of arrhythmia, referred by her local extrusion bender Dr. Allen. 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 - Mixed hyperlipidemia Hyperlipidemia - Myalgia and myositis, unspecified - Nerve damage LEFT ARM - Nonrheumatic aortic valve stenosis 11/17/2017 Added automatically from request for surgery [id number] - Obesity (BMI 30-39.9) - Palpitations 08/30/2016 - Paroxysmal atrial fibrillation (HCC) 08/24/2018 - Presence of prosthetic heart valve 04/28/2018 - Rheumatoid arthritis(714.0) - S/P AVR (aortic valve replacement) and aortoplasty 12/04/2017 - Secondary pulmonary arterial hypertension (HCC) - Tachycardia-bradycardia syndrome (HCC) - Type 2 diabetes mellitus without complications ([facility]) 04/20/2018 patient states this problem resolved - Unspecified sleep apnea PAST SURGICAL HISTORY Procedure Laterality Date - CARDIAC CATH 10/26/2017 [facility]; LVEF 65-75%; mild nonobstructive CAD; severe [...] - Coronary Artery Disease Father 63 from [place] - Heart disease Father CABG - Hypertension [...] for: 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 Allen, and also try to discuss [...] 08/24/2018 CNOV Observed: 08/24/2018 Status: COMPLETED Source: [place] 9:00 AM [facility] OTHER [facility]AMPUS REPOSITORY Office Visit (AGCARDPHRA) GRACIELA BRITO ([id number]) 1950 F Date Time Provider Department 08/24/18 9:00 AM HARPER HERNANDEZ During your visit today, we recorded the following information about you: Pulse Respiration Blood pressure Weight 69/minute 16/minute 136/88 94.3 kg Height 1.448 m Rubén Stewart MA 08/24/2018 9:12 AM Signed No cardiac complaints today. YANCY Galicia. Harper Hernandez MD 08/24/2018 8:09 PM Signed PRIMARY CARE PHYSICIAN: Bird Garza MD [address] [place] [address] [address] [place] [address] REFERRING PHYSICIAN: Taz Allen MD ([facility]) [address] [place] [phone] Patient Care Team: Bird Garza as PCP - General (Family Practice) Taz Allen (Cardiology) Indu Rm (Rheumatology) Silviano Vergara (Nephrology) Mauricio Feldman (Pulmonary Disease) CHIEF COMPLAINT: Evaluation for arrhythmia HISTORY OF PRESENT ILLNESS: Ms. Brito is a 68 year old female who presents today for evaluation of arrhythmia, referred by her local extrusion bender Dr. Allen. 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 - Mixed hyperlipidemia Hyperlipidemia - Myalgia and myositis, unspecified - Nerve damage LEFT ARM - Nonrheumatic aortic valve stenosis 11/17/2017 Added automatically from request for surgery [id number] - Obesity (BMI 30-39.9) - Palpitations 08/30/2016 - Paroxysmal atrial fibrillation (HCC) 08/24/2018 - Presence of prosthetic heart valve 04/28/2018 - Rheumatoid arthritis(714.0) - S/P AVR (aortic valve replacement) and aortoplasty 12/04/2017 - Secondary pulmonary arterial hypertension (HCC) - Tachycardia-bradycardia syndrome ([facility]) - Type 2 diabetes mellitus without complications ([facility]) 04/20/2018 patient states this problem resolved - Unspecified sleep apnea PAST SURGICAL HISTORY Procedure Laterality Date - CARDIAC CATH 10/26/2017 [facility]; LVEF 65-75%; mild nonobstructive CAD; severe [...] - Coronary Artery Disease Father 63 from [place] - Heart disease Father CABG - Hypertension [...] for: 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 Allen, and also try to discuss [...] healthcare provider's instructions for treatment. Developed by [employer]. Published by [employer]. Copyright ?2013 [employer] and/or one of its subsidiaries. All rights reserved. Referring Provider: TAZ ALLEN [[id number]] Allergies As of Date: 08/24/2018 Noted Allergy [...] exertion [R06.09] At risk for stroke [Z91.89] FDC current use of anticoagulant therapy [Z79.01] Anticoagulated with warfarin [Z51.81, Z79.01] Order(s):EKG WITH INTERPRETATION [28571TPP] Order #: [id number]: 1 Prescriptions as of 08/24/2018 Sig: ATORVASTATIN [...] History of eye disorder [Z86.69] INVALID FOR* FDC current use of anticoagulant therapy *INVALID FOR* [...] healthcare provider's instructions for treatment. Developed by [employer] Published by [employer]. Copyright ?2014 [employer] and/or one of its subsidiaries. All rights [...] INR 2.5 Performed By: #### L300.3900 #### [facility] [address] [place], [place], [address] PROTHROMBIN TIME W/INR Collected: 08/08/2018 Status: F Source: [place] 12:23 PM [facility] REPOSITORY TYPE CODE TESTS RESULT OUT OF RANGE REFERENCE UNITS LAB L300.4150 11.7-14.9 SECONDS High PROTIME 21.4 LAB L300.4200 Normal INR 1.9 Performed By: #### L300.3900 #### [facility] [address] [place], [address] PROTHROMBIN TIME W/INR Collected: 07/25/2018 Status: F Source: [place] 11:59 AM [facility] REPOSITORY TYPE CODE TESTS RESULT OUT OF RANGE REFERENCE UNITS LAB L300.4150 11.7-14.9 SECONDS High PROTIME 23.8 LAB L300.4200 Normal INR 2.1 Performed By: #### L300.3900 #### [facility] [address] [place], [place], [address] PROTHROMBIN TIME W/INR Collected: 07/14/2018 Status: F Source: [place] 12:32 PM [facility] REPOSITORY TYPE CODE TESTS RESULT OUT OF RANGE REFERENCE UNITS LAB L300.4150 11.7-14.9 SECONDS High PROTIME 22.0 LAB L300.4200 Normal INR 1.9 Performed By: #### L300.3900 #### [facility] [address] [place], [address] PROTHROMBIN TIME W/INR Collected: 07/04/2018 Status: F Source: [place] 11:58 AM [facility] REPOSITORY TYPE CODE TESTS RESULT OUT OF RANGE REFERENCE UNITS LAB L300.4150 11.7-14.9 SECONDS High PROTIME 20.8 LAB L300.4200 Normal INR 1.8 Performed By: #### L300.3900 #### [facility] [address] [facility] [place], [address] 12 LEAD ELECTROCARDIOGRAM Observed: 07/03/2018 Status: F Source: [place] 3:49 PM [facility] REPOSITORY [facility] Cardiovascular Services [address] [place] [address] 12 Lead EKG 06/26/18 1837 MR#: [id number] Acct: [id number] Name: GRACIELA BRITO Rep #: [id number] : 1950 68 From: Angel Villalobos MD [...] ECG Confirmed by ANGEL VILLALOBOS MD ([id number]), production editor DIANE NAVARRETE ([id number]) on 07/03/2018 3:48:28 PM Referred By: SILVIANO VERGARA Confirmed By:ANGEL VILLALOBOS MD 07/03/18 1548 Date Angel Villalobos MD CC: Darin Ramirez MD; Bird Garza MD Signed 12 LEAD ELECTROCARDIOGRAM Observed: 06/29/2018 Status: F Source: [place] 1:35 PM [facility] Cardiovascular Services [address] [place] [address] 12 Lead EKG 06/26/181954 MR#: [id number] Acct: [id number] Name: GRACIELA BRITO Rep #: [id number] : 1950 68 From: Bird Chery MD [...] Abnormal ECG Confirmed by JR JORDAN, BIRD ([id number]), production editor DIANE NAVARRETE ([id number]) on 06/29/2018 1:35:24 PM Referred By: SILVIANO VERGARA Confirmed By:BIRD CHERY MD 06/29/18 1335 Date Bird Chery MD CC: Darin Ramirez MD; Bird Garza MD Signed EMERGENCY DEPARTMENT Observed: 06/27/2018 Status: F Source: [place] SUMMARY 12:20 AM [facility] Medical Records Department [address] [place] [address] Emergency Department Summary 06/26/181911 MR#: [id number] Acct: [id number] Name: GRACIELA BRITO Rep #: [id number] : 1950 68 From: Darin Ramirez MD [...] fib rate of 82. No signs of MS. Emergency Department Course and Treatment: Pt. with [...] valve replacement This note was generated with F[employer] dictation software. It may contain incorrect words, [...] your Primary Care Provider. Call [facility] ([phone]) or report to the closest Emergency Room. Call 911 if necessary. 06/27/18 0020 <Electronically signed by Darin Ramirez MD> Date Darin Ramirez MD Cosigner Signature (If Indicated): Date CC: Bird Garza MD DISCHARGE INSTRUCTION Observed: 06/27/2018 Status: F Source: [place] 12:19 AM [facility] REPOSITORY [facility] Medical Records Department [address] [place] [address] Discharge Instruction 06/26/18 2143 MR#: [id number] Acct: [id number] Name: GRACIELA BRITO Rep #: [id number] : 1950 68 From: Darin Ramirez MD PCP: Bird Garza MD Status: DEP ER ED Disposition - Plan for ED Patient: Disposition: Home or Assisted Living Chief Complaint: Palpitations Instructions: ED Afib Referrals: Taz Allen MD [STAFF PHYSICIAN] - 1 Day Additional Instructions: Continue current medications. Follow-up with your extrusion bender office tomorrow. Return if worse. What to do if you have Problems For any increased pain, shortness of breath, bleeding, nausea or vomiting, chest pain, or any unexpected problems, contact your Primary Care Provider. Call [facility] ([phone]) or report to the closest Emergency Room. Call 911 if necessary. 06/27/18 0019 <Electronically signed by Darin Ramirez MD> Date Darin Ramirez MD Cosigner Signature (If Indicated): Date CC: Bird Garza MD CHEST 1 VIEW Observed: 06/26/2018 Status: F Source: [place] (PORTABLE) 6:47 PM [facility] REPOSITORY [facility] Imaging Services [address] [place] [address] Chest 1 View (Portable) MR#: [id number] Acct: [id number] Name: GRACIELA BRITO Rep #: [id number] : 1950 F 68 From: Arlene Sargent MD PCP: Bird Garza MD Status: REG ER Study: Chest 1 View (Portable) Date of Exam: 06/26/18 Exam# [id number] Ordering Dr: Darin Ramirez MD STUDY: X-RAY [...] Sargent MD at 19:19 EDT Tel Direct: [phone], Service support , CC: Darin Ramirez MD; Bird Garza MD Title Insurance Agent: Signed CBC W/DIFF, AUTOMATED Collected: 06/26/2018 Status: [...] Lymph 2.25 Performed By: #### L100.0100 #### [facility] [address] [place], [place], [address] PROTHROMBIN TIME W/INR Collected: 06/26/2018 Status: F Source: [place] 6:40 PM [facility] REPOSITORY TYPE CODE TESTS RESULT OUT OF RANGE REFERENCE UNITS LAB L300.4150 11.7-14.9 SECONDS High PROTIME 21.1 LAB L300.4200 Normal INR 1.8 Performed By: #### L300.3900 #### [facility] [address] [place], [address] BASIC METABOLIC Collected: 06/26/2018 Status: F Source: [...] GAP Performed By: #### L500.2500, L501.4010 #### [facility] [address] [place], [address] TROPONIN-I Collected: 06/26/2018 Status: F Source: [place] 6:40 PM [facility] REPOSITORY TYPE CODE TESTS RESULT OUT OF RANGE REFERENCE UNITS LAB L501.4010 <0.045 ng/mL Normal < 0.015 TROPONIN-I Result Comment: TROPONIN-I EXPECTED VALUES <0.045 Negative 0.045 - 0.590 Consistent with Cardiac Damage > OR = 0.600 Critical Value Not every elevated troponin is indicative of MS. These values should be used with clinical judgement in examining the patient's clinical picture for diagnosis. To establish a diagnosis of MS versus myocardial injury, there must be a demonstrated rise and/or fall in the troponin values, in addition to ischemic symptoms, EKG changes, new regional wall motion abnormality, and/or angiographical evidence. PLEASE NOTE: REFERENCE RANGES EDITED 18 Performed By: #### L500.2500, L501.4010 #### [facility] [address] [place], [address] PROTHROMBIN TIME W/INR Collected: 06/20/2018 Status: F Source: [place] 12:07 PM [facility] REPOSITORY TYPE CODE TESTS RESULT OUT OF RANGE REFERENCE UNITS LAB L300.4150 11.7-14.9 SECONDS High PROTIME 18.1 LAB L300.4200 Normal INR 1.5 Performed By: #### L300.3900 #### [facility] [address] [place], [address] PROTHROMBIN TIME W/INR Collected: 06/09/2018 Status: F Source: [place] 11:12 AM [facility] REPOSITORY TYPE CODE TESTS RESULT OUT OF RANGE REFERENCE UNITS LAB L300.4150 11.7-14.9 SECONDS High PROTIME 19.1 LAB L300.4200 Normal INR 1.6 Performed By: #### L300.3900 #### [facility] [address] [place], [address] CARDIOLOGY VISIT Observed: 05/15/2018 Status: F Source: [place] REPORT 2:47 PM [facility] REPOSITORY [facility] 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 Is patient in pain?: No [...] mg PO DAILY 05/11/18 [History Confirmed 05/11/18] [facility] Medical History Obstructive sleep apnea (Chronic) Palpitations (Chronic) Hyperlipidemia (Chronic) History of Sjogren's disease (Chronic) Rheumatoid arthritis (Chronic) Type 2 diabetes mellitus without complications (Chronic) Hypothyroidism (Chronic) 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 [place], [address] CARDIOLOGY VISIT Observed: 05/11/2018 Status: F Source: [place] REPORT 2:45 PM [facility] REPOSITORY [facility] [address] [place] [address] OFFICE VISIT Date of Service: 05/11/18 MR#: [id number] Acct: [id number] Name: GRACIELA BRITO Rep #: [id number] : 1950 Provider: Taz Allen MD Age/Sex: 68/F [place] [facility] [place]: Signed HPI HPI Chief Complaint: Routine [...] mg PO DAILY 05/11/18 [History Confirmed 05/11/18] [facility] Medical History Obstructive sleep apnea (Chronic) Palpitations (Chronic) Hyperlipidemia (Chronic) History of Sjogren's disease (Chronic) Rheumatoid arthritis (Chronic) Type 2 diabetes mellitus without complications (Chronic) Hypothyroidism (Chronic) 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 Lester @ [facility] Plan 1. Status post AVR: The [...] S/P AVR (aortic valve replacement) Z95.2 05/11/18 0755 <Electronically signed by Taz Allen MD> Date [...] HCT 33.8 Performed By: #### L100.0600 #### [facility] [address] [place], [address] PROTEIN+CREATININE Collected: Status: F Source: [place] RATIO,URINE [...] 235 RATIO Performed By: #### L501.0900 #### [facility] [address] [place], [address] PROTHROMBIN TIME W/INR Collected: 04/28/2018 Status: F Source: [place] 3:02 PM [facility] REPOSITORY Order Comment: DR ALLEN ORDERED: PT DR VERGARA ORDERED: VITD, PTHIN, HH, RENAL, PROCRE TYPE CODE TESTS RESULT OUT OF RANGE REFERENCE UNITS LAB L300.4150 11.7-14.9 SECONDS High PROTIME 26.1 LAB L300.4200 Normal INR 2.4 Performed By: #### L300.3900 #### [facility] [address] [place], [address] RENAL PROFILE Collected: 04/28/2018 Status: F Source: [...] CO2 30.0 Performed By: #### L500.3600 #### [facility] [address] [place], [place], [id number] PTHIN Collected: 04/28/2018 Status: F Source: [place] 3:02 PM [facility] REPOSITORY Order Comment: DR ALLEN ORDERED: PT DR VERGARA ORDERED: VITD, PTHIN, HH, RENAL, PROCRE TYPE CODE TESTS RESULT OUT OF RANGE REFERENCE UNITS LAB L509.1000 18.4-80.1 pg/mL High PTHIN 131.3 Performed By: #### L509.1000 #### [facility] [address] [place], [address] VITAMIN D,25 HYDROXY Collected: 04/28/2018 Status: F [...] (>250 nmol/L) Performed By: #### L506.1000 #### [facility] [address] [place], [address] CARDIOLOGY VISIT Observed: 04/21/2018 Status: F Source: [place] REPORT 4:33 PM [facility] REPOSITORY [facility] [address] [place] [address] OFFICE VISIT Date of Service: 04/10/18 MR#: [id number] Acct: [id number] Name: GRACIELA BRITO Rep #: [id number] : 1950 Provider: Julissa Balbuena Age/Sex: 68/F Location: 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 Lester @ [facility] Plan Recent echocardiogram has been reviewed. [...] S/P AVR (aortic valve replacement) Z95.2 04/21/18 8620 <Electronically signed by Julissa LEIJA> Date Julissa LEIJA Cosigner Signature: Date (if applicable) CC: PROTHROMBIN TIME W/INR Collected: 04/21/2018 Status: F Source: [place] 11:54 AM [facility] REPOSITORY TYPE CODE TESTS RESULT OUT OF RANGE REFERENCE UNITS LAB L300.4150 11.7-14.9 SECONDS High PROTIME 21.2 LAB L300.4200 Normal INR 1.8 Performed By: #### L300.3900 #### [facility] [address] [place], [address] ERYTHROCYTE SED RATE Collected: 04/21/2018 Status: F Source: [place] 11:51 AM [facility] REPOSITORY TYPE CODE TESTS RESULT OUT OF RANGE REFERENCE UNITS LAB L102.0000 0-30 mm/hr Normal SED RATE 11 Performed By: #### L101.9900, L100.0100 #### [facility] [address] [place], [place], [address] CBC W/DIFF, AUTOMATED Collected: 04/21/2018 Status: F Source: [place] 11:51 AM [facility] - [...] 1.43 Performed By: #### L101.9900, L100.0100 #### [facility] [address] [place], [address] BUN Collected: 04/21/2018 Status: F Source: [place] 11:51 AM [facility] REPOSITORY TYPE CODE TESTS RESULT OUT OF RANGE REFERENCE UNITS LAB L501.1000 7-18 mg/dL High BUN 24 Performed By: #### L501.1000, L501.1105, L501.1800, L501.4100, L501.4405, L501.6710 #### [facility] [address] [place], [address] SERUM CREATININE AND Collected: 04/21/2018 Status: F Source: [place] GFR 11:51 AM [facility] [...] L501.1000, L501.1105, L501.1800, L501.4100, L501.4405, L501.6710 #### [facility] [address] [place], [address] ALBUMIN, SERUM Collected: 04/21/2018 Status: F Source: [place] 11:51 AM [facility] REPOSITORY TYPE CODE TESTS RESULT OUT OF RANGE REFERENCE UNITS LAB L501.1800 3.2-5.0 g/dL Normal ALB 3.2 Performed By: #### L501.1000, L501.1105, L501.1800, L501.4100, L501.4405, L501.6710 #### [facility] [address] [facility] [place], [address] AST(SGOT) Collected: 04/21/2018 Status: F Source: [place] 11:51 AM [facility] REPOSITORY TYPE CODE TESTS RESULT OUT OF RANGE REFERENCE UNITS LAB L501.4100 15-37 U/L Normal AST 17 Performed By: #### L501.1000, L501.1105, L501.1800, L501.4100, L501.4405, L501.6710 #### [facility] [address] [place], [address] ALANINE AMINOTRANSFERAS Collected: 04/21/2018 Status: F Source: [place] (SGPT) 11:51 AM [facility] REPOSITORY TYPE CODE TESTS RESULT OUT OF RANGE REFERENCE UNITS LAB L501.4405 13-56 U/L Normal ALT 19 Performed By: #### L501.1000, L501.1105, L501.1800, L501.4100, L501.4405, L501.6710 #### [facility] [address] [place], [address] CRP Collected: 04/21/2018 Status: F Source: [place] 11:51 AM [facility] - [...] L501.1000, L501.1105, L501.1800, L501.4100, L501.4405, L501.6710 #### [facility] [address] [place], [address] CARDIOLOGY VISIT Observed: 04/21/2018 Status: F Source: [place] REPORT 10:37 AM [facility] REPOSITORY [facility] [address] [place] [address] OFFICE VISIT Date of Service: 04/17/18 MR#: [id number] Acct: [id number] Name: GRACIELA BRITO Rep #: [id number] : 1950 Provider: VEGA Macdonald Age/Sex: 68/F Location: 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 Lester @ [facility] DAVIN Vergara Patient continues to have [...] it is not her lungs. 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.01 Coding Level of Care Code Off vis,est,level 3 Diagnoses S/P AVR (aortic valve replacement) Z95.2 Fatigue, unspecified type R53.83 Fatigue type: unspecified Dyspnea on exertion R06.09 Dyspnea type: dyspnea on exertion FDC (current)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 Z79.01 04/17/18 1551 <Electronically signed by Jose Enrique Macdonald NP-C> Date Jose Enrique Macdonald BMET-C 04/21/18 1037<Electronically signed by Taz Allen MD> Cosigner Signature: Date (if applicable) Taz Allen MD CC: Bird Garza MD FOLLOW UP (RHEUMATOLOGY) Observed: 04/20/2018 Status: [facility] Source: [place] 12:45 PM [facility] REPOSITORY Chief Complaint RA [...] Hyperlipidemia (272.4) (E78.5) Hypothyroidism (244.9) (E03.9) 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 (V58.69) (Z79.899) Long-term use [...] leukemia (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) (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) Social History Born in [place] Disabled Lack of adequate sleep (V69.4) (Z72.820) Lives in [place] Mother Never a smoker Never used tobacco [...] Therapy: 30Apr2016 to (Last Rx:28Jan2017) Requested for: 56Qjh6398; Status: ACTIVE - Renewal Denied Ordered Rx By: Indu Rm; Dispense: 0 Days ; #:96 Tablet; Refill: 3;For: Rheumatoid arthritis; CHIRAG = N; Verified Transmission to [employer]; Last Updated By: Jose M Landrum; 04/09/2018 2:10:17 PM Aspir-81 81 MG [...] 1 TABLET TWICE DAILY WITH FOOD; Therapy: 32Osd2877 to (Evaluate:27Sep2016) Recorded Dispense: 30 Days ; [...] Oral Tablet; TAKE 1 TABLET DAILY; Therapy: 78Kqa6206 to (Evaluate:27Sep2016) Recorded Dispense: 30 Days ; [...] PM Vitals Vital Signs Recorded: 20Apr2018 11:15AM Vtfhkxxfcgg50.3 F, Oral Heart Rate57 Bjojijkm562, RLE, Sitting Jbilafyse72, RLE, Sitting Blood Pressure Cuff SizeAdult Juouok070 lb BMI Cjcqudtmhm90 BSA Calculated1.86 O2 Gmpgkrljbt62 Physical Exam Constitutional General appearance: Alert and [...] Normal. 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 Pertinent positive and negative [...] date on screening health exams Go on [employer] to view your test results. Please ask the office to help you set up your email in order to access this secure system. You can use [employer] to also contact the office for noncritical [...] Oral Tablet; Take 1 tablet daily; Therapy: 01Csu6213 to (Evaluate:27Sep2016) Recorded Furosemide 20 MG Oral Tablet; Therapy: 27Jan2018 to Recorded Hydroxychloroquine Sulfate 200 MG Oral Tablet; TAKE 1 TABLET TWICE DAILY WITH FOOD; Therapy: 27Wsl9206 to (Evaluate:27Sep2016) Recorded Isosorbide Dinitrate 20 MG Oral Tablet; Therapy: (Recorded:20Apr2018) to Recorded Levothyroxine Sodium 50 MCG Oral Tablet; TAKE 1 TABLET DAILY; Therapy: 61Xwz9458 to (Evaluate:27Sep2016) Recorded Lisinopril 5 MG Oral Tablet; Therapy: 16Feb2018 to Recorded Methotrexate 2.5 MG Oral Tablet; TAKE 8 TABLETS PER WEEK; Therapy: 98Wdg9700 to (Last Rx:28Jan2017) Requested for: 09Apr2018; Status: ACTIVE - Renewal Denied Ordered Warfarin Sodium 5 MG Oral Tablet; Therapy: 24Jan2018 to Recorded Signatures Electronically signed by : Indu Rm MD; Apr 20 2018 12:45PM EST (Author) 12 LEAD ELECTROCARDIOGRAM Observed: 04/18/2018 Status: F Source: [place] 3:31 PM [facility] REPOSITORY [facility] [address] [place] [address] 12 Lead EKG 04/07/18 1350 MR#: [id number] Acct: [id number] Name: GRACIELA BRITO Rep #: [id number] : 1950 68 From: Bird Chery MD [...] Abnormal ECG Confirmed by JR JORDAN, BIRD ([id number]), production editor DIANE NAVARRETE ([id number]) on 04/18/2018 3:30:47 [...] Lymph 1.61 Performed By: #### L100.0100 #### [facility] [address] [place], [address] BASIC METABOLIC Collected: 04/07/2018 Status: F Source: [place] PROFILE (BMP) 2:30 PM [facility] Performed By: #### L500.2500, L501.9520, L506.0400 #### [facility] [address] [place], [address] THYROID STIM HORMONE Collected: 04/07/2018 Status: F Source: [place] (TSH) 2:30 PM [facility] REPOSITORY TYPE CODE TESTS RESULT OUT OF RANGE REFERENCE UNITS LAB L501.9520 0.358-3.74 uIU/mL Normal TSH 1.64 Performed By: #### L500.2500, L501.9520, L506.0400 #### [facility] [address] [facility] [place], [address] T4 FREE DIRECT Collected: 04/07/2018 Status: F Source: [place] 2:30 PM [facility] REPOSITORY TYPE CODE TESTS RESULT OUT OF RANGE REFERENCE UNITS LAB L506.0400 0.76-1.46 ng/dL Normal T4 FREE 1.15 DIRECT Performed By: #### L500.2500, L501.9520, L506.0400 #### [facility] [address] [place], [address] CHEST PA AND LATERAL Observed: 04/07/2018 Status: F Source: [place] 1:54 PM [facility] REPOSITORY [facility] [address] [place] [address] Chest PA and Lateral MR#: [id number] Acct: [id number] Name: GRACIELA BRITO Rep #: [id number] : 1950 F 68 From: Dave Anderson MD PCP: Bird Garza MD Status: REG CLI Study: Chest PA and Lateral Date of Exam: 04/07/18 Exam# [id number] Ordering Dr: Jose Enrique Macdonald BMET-C STUDY: X-RAY CHEST REASON FOR EXAM: Female, [...] , CC: VEGA Macdonald; Bird Garza MD Title Insurance Agent: Signed PROTHROMBIN TIME W/INR Collected: 03/31/2018 Status: F Source: [place] 10:14 AM [facility] REPOSITORY Order Comment: PT TO DR. ALLEN TYPE CODE TESTS RESULT OUT OF RANGE REFERENCE UNITS LAB L300.4150 11.7-14.9 SECONDS High PROTIME 32.5 LAB L300.4200 Normal INR 3.1 Performed By: #### L300.3900 #### [facility] [address] [place], [place], [address] BASIC METABOLIC Collected: 03/31/2018 Status: F Source: [...] 6 Performed By: #### L500.2500, L503.6620 #### [facility] [address] [place], [address] BNP,B-TYPE NATRIURETIC Collected: 03/31/2018 Status: F Source: [place] PEPTIDE 10:13 AM [facility] REPOSITORY TYPE CODE TESTS RESULT OUT OF RANGE REFERENCE UNITS LAB L503.6620 0-100 pg/mL High B-TYPE 371.8 [place] PEP Performed By: #### L500.2500, L503.6620 #### [facility] [address] [place], [address] ECHO, COMPLETE W/ Observed: 03/30/2018 Status: F Source: [place] CONTRAST 6:09 PM [facility] REPOSITORY [facility] [address] [place] [address] Echo Complete W/ Contrast 03/30/18 1408 MR#: [id number] Acct: [id number] Name: GRACIELA BRITO Rep #: [id number] : 1950 68 From: Angel Villalobos MD Attending Dr: Bird Garza MD Status: REG CLI Ordering Dr: Bird Garza MD Date: 03/30/18 Location: [facility] Sex: F C Admitted: Version 2 [...] Date Dictated: 03/30/18 1408 Date Transcribed: 03/30/181806 Title Insurance Agent: Signed OFFICE VISIT REPORT Observed: 03/23/2018 Status: F Source: [place] 11:37 AM [place] [address] [place] [address] OFFICE VISIT Date of Service: 03/20/18 MR#: [id number] Acct: [id number] Patient: GRACIELA BRIOT Rep #: [id number] : 1950 Provider: Taz Allen MD Age/Sex: 68/F Location: [facility] Status: Signed Intake Vital Signs03/20/18 Blood [...] MPV 10.4 Performed By: #### L100.0500 #### [facility] [address] [place], [address] OFFICE VISIT REPORT Observed: 03/20/2018 Status: F Source: [place] 1:34 PM [facility] REPOSITORY [facility] [address] [place] [address] OFFICE VISIT Date of Service: 03/15/18 MR#: [id number] Acct: [id number] Patient: GRACIELA BRITO Rep #: [id number] : 1950 Provider: Taz Allen MD Age/Sex: 68/F [place] [facility] Status: Signed Intake Vital Signs03/15/18 Blood Pressure [...] INR 2.9 Performed By: #### L300.3900 #### [facility] [address] [place], [place], [address] CBC W/DIFF, AUTOMATED Collected: 03/08/2018 Status: F [...] Lymph 1.75 Performed By: #### L100.0100 #### [facility] [address] [facility] [place], [address] PROTHROMBIN TIME W/INR Collected: 03/08/2018 Status: F Source: [place] 10:56 AM [facility] REPOSITORY Order Comment: INR FOR DR ALLEN REST FOR DR GARZA TYPE CODE TESTS RESULT OUT OF RANGE REFERENCE UNITS LAB L300.4150 11.7-14.9 SECONDS High PROTIME 21.5 LAB L300.4200 Normal INR 1.9 Performed By: #### L300.3900 #### [facility] [address] [place], [address] MICROALB:CREAT Collected: 03/08/2018 Status: F Source: REY [...] 18.4 MALB:CREAT Performed By: #### L502.0250 #### [facility] [address] [place], [address] BASIC METABOLIC Collected: 03/08/2018 Status: F Source: [...] By: #### L500.2500, L500.3400, L500.4100, L501.9520 #### [facility] [address] [facility] [id number] LIVER PROFILE Collected: 03/08/2018 Status: F Source: [place] 10:56 AM [facility] - [...] By: #### L500.2500, L500.3400, L500.4100, L501.9520 #### [facility] [address] [place], [place], [address] LIPID PROFILE Collected: 03/08/2018 Status: F Source: [place] 10:56 AM [facility] - [...] By: #### L500.2500, L500.3400, L500.4100, L501.9520 #### [facility] [address] [place], [address] THYROID STIM HORMONE Collected: 03/08/2018 Status: F Source: [place] (TSH) 10:56 AM [facility] REPOSITORY Order Comment: INR FOR DR ALLEN REST FOR DR GARZA TYPE CODE TESTS RESULT OUT OF RANGE REFERENCE UNITS LAB L501.9520 0.358-3.74 uIU/mL Normal TSH 2.76 Performed By: #### L500.2500, L500.3400, L500.4100, L501.9520 #### [facility] [address] [place], [address] PROTHROMBIN TIME W/INR Collected: 02/15/2018 Status: F Source: [place] 12:37 PM [facility] REPOSITORY TYPE CODE TESTS RESULT OUT OF RANGE REFERENCE UNITS LAB L300.4150 11.7-14.9 SECONDS High PROTIME 28.7 LAB L300.4200 Normal INR 2.7 Performed By: #### L300.3900 #### [facility] [address] [place], [address] CHEST PA AND LATERAL Observed: 02/06/2018 Status: F Source: [place] 2:05 PM [facility] REPOSITORY [facility] [address] [place] [address] Chest PA and Lateral MR#: [id number] Acct: [id number] Name: GRACIELA BRITO Rep #: [id number] : 1950 F 67 From: Merrill Dennis DO PCP: Bird Garza MD Status: REG CLI Study: Chest PA and Lateral Date of Exam: 02/06/18 Exam# [id number] Ordering Dr: Taz Allen MD STUDY: X-RAY [...] Merrill Dennis DO at 14:55 EDT Tel [phone], Service support , CC: Taz Allen MD; Bird Garza MD Title Insurance Agent: Signed PROTHROMBIN TIME W/INR Collected: 02/01/2018 Status: F Source: [place] 12:33 PM [facility] REPOSITORY TYPE CODE TESTS RESULT OUT OF RANGE REFERENCE UNITS LAB L300.4150 11.7-14.9 SECONDS High PROTIME 26.0 LAB L300.4200 Normal INR 2.4 Performed By: #### L300.3900 #### [facility] [address] [place], [place], [address] PROTHROMBIN TIME W/INR Collected: 01/25/2018 Status: F Source: [place] 11:46 AM [facility] REPOSITORY TYPE CODE TESTS RESULT OUT OF RANGE REFERENCE UNITS LAB L300.4150 11.7-14.9 SECONDS High PROTIME 22.0 LAB L300.4200 Normal INR 1.9 Performed By: #### L300.3900 #### [facility] [address] [place], [address] OBSOLETE Observed: 01/25/2018 Status: COMPLETED Source: [place] 12:00 AM CLINIC OTHER CAMPUS REPOSITORY Refill (AGVASACC) GRACIELA BRITO ([id number]) 1950 F Date Time Provider Department 01/25/18 [...] [Adalimumab]; Lantus [Insulin Glargine]; Zithromax [Azithromycin] (home) [phone] (cell) Last Visit date: 12/29/2017 Future appointment: [...] Reviewed: 12/29/2017 Reviewed by: Sophie Roberson (Carmel), WHEEL CLEANER.UPSCALE SECURITY OFFICER - Fully Assessed Reason for Visit: Refill [...] TIME W/INR Collected: 01/16/2018 Status: F Source: [place] 12:40 PM [facility] REPOSITORY TYPE CODE TESTS RESULT OUT OF RANGE REFERENCE UNITS LAB L300.4150 11.7-14.9 SECONDS High PROTIME 19.6 LAB L300.4200 Normal INR 1.7 Performed By: #### L300.3900 #### [facility] [address] [place], [address] PROTHROMBIN TIME W/INR Collected: 01/09/2018 Status: F Source: [place] 12:10 PM [facility] REPOSITORY TYPE CODE TESTS RESULT OUT OF RANGE REFERENCE UNITS LAB L300.4150 11.7-14.9 SECONDS High PROTIME 20.0 LAB L300.4200 Normal INR 1.7 Performed By: #### L300.3900 #### [facility] [address] [place], [address] PROTHROMBIN TIME W/INR Collected: 01/02/2018 Status: F Source: [place] 12:26 PM [facility] REPOSITORY Order Comment: Comments: Standing Order TYPE CODE TESTS RESULT OUT OF RANGE REFERENCE UNITS LAB L300.4150 11.7-14.9 SECONDS High PROTIME 17.5 LAB L300.4200 Normal INR 1.4 Performed By: #### L300.3900 #### [facility] [address] [place], [address] CARDIOLOGY VISIT Observed: 12/30/2017 Status: F Source: [place] REPORT 2:53 PM [facility] REPOSITORY [facility] [place] [address] OFFICE VISIT Date of Service: 12/30/17 MR#: [id number] Acct: [id number] Name: GRACIELA BRITO Rep #: [id number] : 1950 Provider: Taz Allen MD Age/Sex: 67/F [place] [facility] [place]: Signed HPI HPI Chief Complaint: Follow-up [...] which was 05/21/[address] Villalobos at [facility]. At that time she basically had no [...] her father at age 63 who of MS. 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 Lester @ [facility] Plan 1. Status post aortic valve [...] CC: PROGRESS Observed: 12/29/2017 Status: COMPLETED Source: [place] 11:25 AM [facility] OTHER CAMPUS REPOSITORY O ID: [id number] Author: Sophie (Desktop Engineer) YUSEF Roberson.CARMEL Service: (none) Author Type: Nurse [...] on Hydrochlorothiazide. She was discharged home with [facility] on 12/04 in [place]. She was found [...] Procedure Laterality Date - CARDIAC CATH 10/26/2017 [facility] - DELIVERY ONLY 1969 , low [...] - Coronary Artery Disease Father 63 from [place] - Cervical Cancer Sister - Coronary Artery [...] on. she should follow up with her extrusion bender and PCP as scheduled, and only needs to be seen here on a as needed basis. I also recommend patient to have a repeat CXR in one month following on her pleural effusion. Electronically signed by Sophie Roberson APRN.CNP on December 29, 2017, 11:25 AM [place] Observed: 12/29/2017 Status: COMPLETED Source: [place] 11:00 AM [facility] OTHER [place] REPOSITORY Office Visit (AGVASACC) GRACIELA BRITO ([id number]) 1950 F Date Time Provider Department 12/29/17 [...] on Hydrochlorothiazide. She was discharged home with [facility] on 12/04 in [place]. She was found [...] Procedure Laterality Date - CARDIAC CATH 10/26/2017 [facility] - DELIVERY ONLY 1970 , low [...] - Coronary Artery Disease Father 63 from [place] - Cervical Cancer Sister - Coronary Artery [...] on. she should follow up with her extrusion bender and PCP as scheduled, and only needs [...] if they haven't contact you. Rehab Contacts: [phone] ([facility]) or [phone] ([facility]) Restrictions: Please allow time to heal, slowly increase weight bearing in a gradual fashion (5lbs increment each month) over the next 2-3 months, then can gradually resume your normal activity depend on how you feel. Follow-ups: It is crucial to establish future appointments with your other providers. Please follow up with your extrusion bender and your primary care doctor and your rn chronic so that they can continue helping you with your medications and future health concerns. We would like to follow up with you in 2 weeks with CXR to reassess the fluid in your lung. Please don't hesitate to contact us if you have any concerns/questions: [phone] Sophie Roberson APRN.CNP Referring Provider: BIRD GARZA [[id number]] Allergies As of Date: 12/29/2017 Noted Allergy [...] 7 tabletRfl: 0 XR CHEST 2V FRONTAL/LAT [[id number]] Order #: [id number] FUTURE Prescriptions as of 12/29/2017 Sig: METOPROLOL [...] TARTRATE 50 MG TABLET >> Cassius Reyes CULINARY INTERN 12/29/2017 10:57 AM >> CASSIUS REYES LPN [facility] Dec 29, 2017 10:57 AM Not taking FOLIC ACID 1 MG TABLET >> Cassius Reyes LPN 12/29/2017 10:58 AM >> CASSIUS REYES LPN [facility] Dec 29, 2017 10:58 AM Not [...] if they haven't contact you. Rehab Contacts: [phone] ([facility]) or [phone] ([facility]) Restrictions: Please allow time to heal, slowly increase weight bearing in a gradual fashion (5lbs increment each month) over the next 2-3 months, then can gradually resume your normal activity depend on how you feel. Follow-ups: It is crucial to establish future appointments with your other providers. Please follow up with your extrusion bender and your primary care doctor and your rn chronic so that they can continue helping you with your medications and future health concerns. We would like to follow up with you in 2 weeks with CXR to reassess the fluid in your lung. 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 Left click = Reports ([place]) Review of Present Symptoms: Reports: Shortness of [...] follwoing recent AVR by Dr. Lester at [facility] after refferal by Dr. Allen. - Pulse [...] 1512 <Electronically signed by Taz Allen MD> [facility] Signature: Date Taz Allen MD CC: Signed 12 LEAD ELECTROCARDIOGRAM Observed: 12/27/2017 Status: F Source: [place] 8:26 AM [facility] REPOSITORY [facility] Cardiovascular Services [address] [place] [address] 12 Lead EKG 12/23/17 1441 MR#: [id number] Acct: [id number] Name: GRACIELA BRITO Rep #: [id number] : 1950 67 From: Angel Villalobos MD [...] ECG Confirmed by ANGEL VILLALOBOS MD ([id number]), production editor DIANE NAVARRETE ([id number]) on 12/27/2017 8:26:30 AM Referred By: Taz Allen Confirmed By:ANGEL VILLALOBOS MD 12/27/17 0826 Date Angel Villalobos MD CC: Bird Garza MD; Anoop Nath MD Signed EMERGENCY DEPARTMENT Observed: 12/23/2017 Status: F Source: [place] SUMMARY 4:30 PM [facility] REPOSITORY [facility] Medical Records Department [address] [place] [address] Emergency Department Summary 12/23/17 1550 MR#: [id number] Acct: [id number] Name: GRACIELA BRITO Rep #: [id number] : 1950 67 From: Anoop Nath MD [...] II diabetic This note was generated with Fingooroo dictation software. It may contain incorrect words, [...] your Primary Care Provider. Call [facility] ([phone]) or report to the closest Emergency Room. Call 911 if necessary. 12/23/17 1630 <Electronically signed by Anoop Nath MD> Date Anoop Nath MD Cosigner Signature (If Indicated): Date CC: Taz Allen MD; Bird Garza MD BASIC METABOLIC Collected: 12/23/2017 Status: F Source: [facility] PROFILE ([facility]) 2:50 PM [facility] - [...] GAP 11 Performed By: #### L500.2500 #### [facility] [address] [place], [address] CBC W/DIFF, AUTOMATED Collected: 12/23/2017 Status: F Source: [place] 2:50 PM [facility] - [...] Lymph 2.41 Performed By: #### L100.0100 #### [facility] [address] [place], [address] PROTHROMBIN TIME W/INR Collected: 12/23/2017 Status: F Source: [place] 2:50 PM [facility] REPOSITORY TYPE CODE TESTS RESULT OUT OF RANGE REFERENCE UNITS LAB L300.4150 11.7-14.9 SECONDS High PROTIME 16.9 LAB L300.4200 Normal INR 1.4 Performed By: #### L300.3900 #### [facility] [address] [place], [address] PROTHROMBIN TIME W/INR Collected: 12/19/2017 Status: F Source: [place] 11:38 AM [facility] REPOSITORY TYPE CODE TESTS RESULT OUT OF RANGE REFERENCE UNITS LAB L300.4150 11.7-14.9 SECONDS High PROTIME 16.3 LAB L300.4200 Normal INR 1.3 Performed By: #### L300.3900 #### [facility] [address] [place], [address] CARDIOLOGY VISIT Observed: 12/13/2017 Status: F Source: [place] REPORT 3:42 PM [facility] REPOSITORY 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 She has been monitored for rheumatoid lung [...] hospital. It was noted on EKG at [facility] on November 28, 2017. Patient will continue [...] aortic root dilatation, per Dr. 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, [address] 12 LEAD EKG PERFORMED Observed: 12/13/2017 Status: F Source: [place] BY [facility] 10:55 AM [facility] REPOSITORY [facility] [address] [place] [address] 12 Lead EKG performed by [facility] 12/13/17 1054 MR#: [id number] Acct: [id number] Name: GRACIELA BRITO Rep #: [id number] : 1950 67 From: Jose Enrique Macdonald BMET-C Attending Dr: Jose Enrique Macdonald NP Status: DEP AMB Ordering Dr: Jose Enrique Macdonald Date: 12/13/17 Location: [facility] Sex: F C Admitted: [facility]/12 Lead EKG performed by [facility] ECG Report Interpretation Sinus Bradycardia Low voltage in precordial leads. -Incomplete left bundle branch block. -Decreasing R-wave progression -may be secondary to conduction defect consider old anterior infarct. - Nonspecific T-abnormality. ABNORMAL Electronically signed on 01/30/2018 at 09:29 by Taz Allen 01/30/18 0931 Date Jose Enrique Macdonald BMET-C CC: Bird Garza MD Date Dictated: 12/13/171053 Date Transcribed: 12/13/171053 Title Insurance Agent: BELIA Signed PROTHROMBIN TIME W/INR Collected: 12/12/2017 Status: F Source: [place] 11:55 AM [facility] REPOSITORY Order Comment: Comments: STANDING ORDER Comments: STANDING ORDER TYPE CODE TESTS RESULT OUT OF RANGE REFERENCE UNITS LAB L300.4150 11.7-14.9 SECONDS High PROTIME 23.0 LAB L300.4200 Normal INR 2.0 Performed By: #### L300.3900 #### [facility] [address] [place], [address] PROGRESS Observed: 12/10/2017 Status: COMPLETED Source: [place] 2:31 PM [facility] OTHER [place] REPOSITORY HNO ID: [id number] Author: Nahed Machado APRN.CNP Service: (none) Author [...] Tuesday. I will continue to follow closely. Jaden Machado APRN.CNP PROGRESS Observed: 12/09/2017 Status: COMPLETED Source: [place] 10:55 AM [facility] OTHER [place] REPOSITORY HNO ID: [id number] Author: Nahed Lei) YUSEF Machado.CARMEL Service: (none) [...] overload . She was discharged home with [facility] on 12/04 in [facility]. Today, Mrs. Brito is seen in the [...] time. She said she would go to [facility] if she got into trouble at [...] Procedure Laterality Date - CARDIAC CATH 10/26/2017 [facility] - DELIVERY ONLY 1970 , low [...] - Coronary Artery Disease Father 63 from [place] - Cervical Cancer Sister - Coronary Artery [...] close follow-up during the next week. Her Relationship Specialist has been notified and contact information was provided to the patient. She is instructed to contact me with how she is doing over the next few days. She was advised to go to the ER if she feels worse. Electronically signed by Nahed Machado APRN.CNP on December 09, 2017, 10:55 AM CNOV Observed: 12/09/2017 Status: COMPLETED Source: [place] 10:00 AM [facility] REPOSITORY Office Visit (AGVASACC) GRACIELA BRITO ([id number]) 1950 F Date Time Provider Department 12/09/17 10:00 AM NAHED MACHADO) MONSE During your visit today, we recorded the following information about you: Pulse Respiration Blood pressure Weight 126/minute 18/minute 122/70 107.7 kg Height 1.753 m Nahed Machado APRN.CNP, APRN.CNP 12/09/2017 10:52 AM Addendum -Please follow-up with your primary care physician and your extrusion bender in 3-4 weeks -Please return to cardiac surgery in 3-4 weeks with a chest x-ray done before the appointment -Restriction remain: No lifting more than 10 lbs and No driving. -Cardiac rehab has been consulted. You will be able to begin cardiac rehab after your next visit with us. Contact [facility] to schedule cardiac rehab. -Dr. Allen's office [...] overload . She was discharged home with [facility] on 12/04 in [facility]. Today, Mrs. Brito is seen in the [...] time. She said she would go to [facility] if she got into trouble at [...] Procedure Laterality Date - CARDIAC CATH 10/26/2017 [facility] - DELIVERY ONLY 1970 , low [...] - Coronary Artery Disease Father 63 from [place] - Cervical Cancer Sister - Coronary Artery [...] close follow-up during the next week. Her Relationship Specialist has been notified and contact information was provided to the patient. She is instructed to contact me with how she is doing over the next few days. She was advised to go to the ER if she feels worse. Electronically signed by Nahed Machado APRN.CNP on December 09, 2017, 10:55 AM Referring Provider: BIRD GARZA [[id number]] Allergies As of Date: 12/09/2017 Noted Allergy [...] Hives Date Reviewed: 12/09/2017 Reviewed by: Nahed (Desktop Engineer) YUSEF Machado.CARMEL - Fully Assessed Reason for Visit: Post Op [174] Cmt: 11/28/17 AVR Primary Visit Diagnosis:S/P AVR (aortic valve replacement) and aortoplasty [Z95.2] Other Visit Diagnosis:Paroxysmal atrial fibrillation (HCC) [I48.0] Order(s):CONSULT TO CARD REHAB PHASE II [495678] Order #: [id number]: 1 XR CHEST 2V FRONTAL/LAT [9437789] Order #: [id number] FUTURE ECG COMPLETE W INTERPRETATION [ECG01] Order #: [id number] diltiazem (CARDIZEM) 120 mg tabletTake 1 tablet [...] with your primary care physician and your extrusion bender in 3-4 weeks -Please return to cardiac surgery in 3-4 weeks with a chest x-ray done before the appointment -Restriction remain: No lifting more than 10 lbs and No driving. -Cardiac rehab has been consulted. You will be able to begin cardiac rehab after your next visit with us. Contact [facility] to schedule cardiac rehab. -Dr. Allen's office [...] coming to see me today! Nahed Machado APRN.UPSCALE SECURITY OFFICER Prescriptions ordered this encounter Disp Refills Start [...] ALLIED HEALTH Observed: 12/04/2017 Status: COMPLETED Source: [place] 4:33 PM CLINIC OTHER CAMPUS REPOSITORY HNO ID: [id number] Author: Mell Melara LPN Service: Home Care Services Author Type: LICENSED NURSE Type: Allied Health Filed: 12/05/2017 9:07 AM Note Text: BOOT TRIMMER NOTE SERVICE DATE: 12/05/2017 SERVICE TIME: 906 Discharge: Aware of Discharge home Physician order placed for Home Care Services Home Care Agency: [facility] Start of care date: Patient/Family agree to discharge plan: SN SIGNATURE: Mell Melara LPN PATIENT NAME: Graciela Brito DATE: December 05, 2017 TIME: 9:07 AM ALLIED HEALTH Observed: 12/04/2017 Status: COMPLETED Source: [place] 4:06 PM [facility] OTHER CAMPUS REPOSITORY HNO ID: [id number] Author: Marion Walden Service: (none) Author Type: (none) Type: Allied Health Filed: 12/04/2017 4:08 PM Note Text: BOOT TRIMMER NOTE SERVICE DATE: 12/04/2017 SERVICE TIME: 4:06 PM Discharge: Aware of Discharge home today Physician order placed for Home Care Services Home Care Agency: [facility] Start of care date: 12/05- Patient/Family agree to discharge plan: SN, PT ordered SIGNATURE: Marion Walden PATIENT NAME: Graciela Brito DATE: December 04, 2017 TIME: 4:06 PM CNDS Observed: 12/04/2017 Status: COMPLETED Source: [place] 12:17 PM [facility] OTHER CAMPUS REPOSITORY HNO ID: [id number] Author: Nahed Machado APRN.CNP Service: Cardiac Surgery [...] you become constipated, you may use any uset-xwl-bicjzmf treatment such as Milk of Magnesia, Sennakot, Prune Juice, Suppositories, etc. in addition to the stool softener/fiber supplement You should use an fvuq-zmj-tdjorod stool softener (Docusate sodium) and/or a fiber [...] Patient/Parents to call for appointment?: Yes Call [phone] to schedule. Follow-Up Appointment We will call you on Tuesday to schedule an appointment for Saturday 12/09 You may call me if you have any questions at any time. When: In 1 week Nahed GonzalezDesktop Engineer) Sharad [phone] [address] [facility] [address] PCP Requested Referral FOLLOW-UP APPOINTMENTS ALREADY SCHEDULED WITH A [facility] PROVIDER: Jesus Gardner [facility] to schedule [...] patient. SIGNATURE: Nahed Machado CNP PAGER/CONTACT #: [phone] DATE: December 04, 2017 TIME: 12:17 PM GLUCOSE METER Collected: 12/04/2017 Status: F Source: [facility] 11:21 AM HEALTH SYSTEM REPOSITORY TYPE CODE TESTS RESULT OUT OF REFERENCE UNITS RANGE LAB GLUBL(LOINC 70-99 mg/dL ) High Glucose Meter 131 Result Comment: RN NOTIFIED Performed By: #### GLMET #### [place] [address] PROGRESS Observed: 12/04/2017 Status: COMPLETED Source: [place] 9:12 AM CLINIC OTHER CAMPUS REPOSITORY HNO ID: [id number] Author: Nahed Machado Service: Cardiac Surgery Author [...] 04, 2017 TIME: 9:13 AM PAGER/CONTACT #: [phone] ETX#[id number] GLUCOSE METER Collected: 12/04/2017 Status: F Source: [facility] 7:47 AM HEALTH SYSTEM REPOSITORY TYPE CODE TESTS RESULT OUT OF REFERENCE UNITS RANGE LAB GLUBL(LOINC 70-99 mg/dL ) High Glucose Meter 124 Result Comment: RN NOTIFIED Performed By: #### GLMET #### [place] [address] PROTIME Collected: 12/04/2017 Status: F Source: [facility] 3:10 AM HEALTH SYSTEM REPOSITORY TYPE CODE TESTS RESULT OUT OF REFERENCE UNITS RANGE LAB PTI(LOINC) 9.3-11.9 sec Prothrombin Time 10.6 LAB INR(LOINC) INR 1.00 Result Comment: Standard Therapy 2.0-3.0 High Dose 2.5-3.5 Performed By: #### PT #### [place] [address] GLUCOSE METER Collected: 12/03/2017 Status: F Source: [facility] 8:46 PM HEALTH SYSTEM REPOSITORY TYPE CODE TESTS RESULT OUT OF REFERENCE UNITS RANGE LAB GLUBL(LOINC 70-99 mg/dL ) High Glucose Meter 132 Performed By: #### GLMET #### [place] [address] GLUCOSE METER Collected: 12/03/2017 Status: F Source: [facility] 4:40 PM HEALTH SYSTEM REPOSITORY TYPE CODE TESTS RESULT OUT OF REFERENCE UNITS RANGE LAB GLUBL(LOINC 70-99 mg/dL ) High Glucose Meter 193 Performed By: #### GLMET #### [place] [address] PROTIME Collected: 12/03/2017 Status: F Source: [facility] 2:53 PM HEALTH SYSTEM REPOSITORY TYPE CODE TESTS RESULT OUT OF REFERENCE UNITS RANGE LAB PTI(LOINC) 9.3-11.9 sec Prothrombin Time 10.8 LAB INR(LOINC) INR 1.02 Result Comment: Standard Therapy 2.0-3.0 High Dose 2.5-3.5 Performed By: #### PT #### [facility] [address] [place] [id number] GLUCOSE METER Collected: 12/03/2017 Status: F Source: [facility] 11:43 AM HEALTH SYSTEM REPOSITORY TYPE CODE TESTS RESULT OUT OF REFERENCE UNITS RANGE LAB GLUBL(LOINC 70-99 mg/dL ) High Glucose Meter 145 Result Comment: RN NOTIFIED Performed By: #### GLMET #### [facility] [address] [place], [place] [address] THERAPY NT Observed: 12/03/2017 Status: COMPLETED Source: [place] 10:26 AM [facility]IN[facility] OTHER [facility]AMPUS REPOSITORY HNO ID: [id number] Author: Marie GonzalezOtr/Byrce Stokes Service: Occupational Therapy Author Type: Occupational Therapist Type: Therapy (PT/OT/Speech/Resp) Filed: 12/03/2017 10:31 AM Note Text: Occupational Therapy Evaluation SERVICE DATE: 12/03/2017 SERVICE TIME: 1000 to 1020 ROOM: [id number] Recommended Discharge Disposition: Home OT Recommended Discharge Disposition Comments: INFORMATION SECURITY DIRECTOR and family assist Anticipated Discharge Needs: Physical [...] of daily living (ADL) Interventions Provided: Evaluation;Self Assisted Management (06374) $ Evaluation-Low (58749) Billed Units: 1 unit Self Assisted Management (38178) Treatment Minutes: 8 1 unit Skilled Intervention(s): [...] Procedure Laterality Date - CARDIAC CATH 10/26/2017 [facility] - DELIVERY ONLY 1969 , low [...] December 03, 2017 TIME: 10:26 AM PAGER: [phone] PROGRESS Observed: 12/03/2017 Status: COMPLETED Source: [place] 9:55 AM CLINIC OTHER CAMPUS REPOSITORY O ID: [id number] Author: Nahed Machado Service: Cardiac Surgery Author [...] 03, 2017 TIME: 9:55 AM PAGER/CONTACT #: [phone] ETX [id number] GLUCOSE METER Collected: 12/03/2017 Status: F Source: [facility] 9:06 AM HEALTH SYSTEM REPOSITORY TYPE CODE TESTS RESULT OUT OF REFERENCE UNITS RANGE LAB GLUBL(LOINC 70-99 mg/dL ) High Glucose Meter 106 Performed By: #### GLMET #### [facility] [address] [place] [address] CHEST 2 VIEWS Observed: 12/03/2017 Status: F Source: [facility] 7:55 AM HEALTH SYSTEM REPOSITORY Performed at [...] prosthesis. HEMOGRAM Collected: 12/03/2017 Status: F Source: [facility] 3:20 AM HEALTH SYSTEM REPOSITORY TYPE CODE [...] MPV 10.4 Performed By: #### CBC1 #### [place] [address] BASIC PANEL Collected: 12/03/2017 Status: F Source: [facility] 3:20 AM HEALTH SYSTEM REPOSITORY TYPE CODE [...] Gap 10 Performed By: #### P8 #### [place] [address] MDRD GFR Collected: 12/03/2017 Status: F Source: [facility] 3:20 AM HEALTH SYSTEM REPOSITORY TYPE CODE TESTS RESULT OUT OF RANGE REFERENCE UNITS LAB GFRFN(LOINC >60mL/min/1.73m ) 2 eGFR 47.57 Result Comment: If the patient is , multiply the result by 1.210. Performed By: #### GFR #### [place] [address] GLUCOSE METER Collected: 12/02/2017 Status: F Source: [facility] 8:25 PM HEALTH SYSTEM REPOSITORY TYPE CODE TESTS RESULT OUT OF REFERENCE UNITS RANGE LAB GLUBL(LOINC 70-99 mg/dL ) High Glucose Meter 153 Performed By: #### GLMET #### [place] [address] GLUCOSE METER Collected: 12/02/2017 Status: F Source: [facility] 5:07 PM HEALTH SYSTEM REPOSITORY TYPE CODE TESTS RESULT OUT OF REFERENCE UNITS RANGE LAB GLUBL(LOINC 70-99 mg/dL ) High Glucose Meter 135 Result Comment: RN NOTIFIED Performed By: #### GLMET #### [facility] [address] [place] [id number] PROGRESS Observed: 12/02/2017 Status: COMPLETED Source: [place] 4:26 PM [facility] OTHER [place] REPOSITORY HNO ID: [id number] Author: Johanna GonzalezRn) HANS Marti Service: Cardiovascular Testing Author Type: Registered Nurse Type: Progress Notes Filed: 12/02/2017 4:27 PM Note Text: Echocardiogram with Definity completed. Patient educated prior to start of procedure and voiced understanding. Definity administered by Corin Hair RN via right subclavian without difficulty. Tolerated well. THERAPY NT Observed: 12/02/2017 Status: COMPLETED Source: [place] 2:57 PM [facility] REPOSITORY HNO ID: [id number] Author: Yohana GonzalezOtr/L) Cynthia Service: Occupational Therapy Author Type: Occupational Therapist Type: Therapy (PT/OT/Speech/Resp) Filed: 12/02/2017 2:57 PM Note Text: OCCUPATIONAL THERAPY MISSED VISIT SERVICE DATE: 12/02/2017 SERVICE TIME: 1456 to 1456 ROOM: [place] [address] Attempted Evaluation. Patient not seen due to Test/Procedure (off floor cardiac testing). Will reattempt as able. SIGNATURE: YEE Reynolds/Umberto PATIENT NAME: Graciela Brito DATE: December 02, 2017 TIME: 2:57 PM PAGER/CONTACT #: CASE MANAGEM Observed: 12/02/2017 Status: COMPLETED Source: [place] 12:38 PM [facility] REPOSITORY HNO ID: [id number] Author: Rimma Anne RN Service: Care Management Author Type: Registered Nurse Type: Care Mgt Progress Note Filed: 12/02/2017 12:40 PM Note Text: CARE MANAGEMENT PROGRESS NOTE SERVICE DATE: 12/02/2017 SERVICE TIME: 12:38 PM LOS: 4 days Needs Prior to Discharge: Home Care Order;OT/PT Evaluation Notes reviewed. Patient s/p AVR POD #4. Likely discharge to home Sun. or Mon. with [facility]. [facility] referral ongoing. SIGNATURE: Rimma Anne RN PATIENT NAME: Graciela Brito DATE: December 02, 2017 TIME: 12:38 PM PAGER/CONTACT #: [phone] GLUCOSE METER Collected: 12/02/2017 Status: F Source: [facility] 11:48 AM HEALTH SYSTEM REPOSITORY TYPE CODE TESTS RESULT OUT OF REFERENCE UNITS RANGE LAB GLUBL(LOINC 70-99 mg/dL ) High Glucose Meter 128 Result Comment: RN NOTIFIED Performed By: #### GLMET #### [facility] [address] [place] [address] PROGRESS Observed: 12/02/2017 Status: COMPLETED Source: [facility] 11:00 AM CLINIC OTHER CAMPUS REPOSITORY HNO ID: [id number] Author: Nahed Machado Service: Cardiac Surgery Author [...] aortic stenosis s/p AVR with 21mm [facility] Trifecta, aortic root ?Enlargement POD#3 -dc chest [...] 02, 2017 TIME: 11:00 AM PAGER/CONTACT #: [phone] ETX [id number] ALLIED HEALTH Observed: 12/02/2017 Status: COMPLETED Source: [facility] 10:22 AM CLINIC OTHER CAMPUS REPOSITORY O ID: [id number] Author: Vivian Packer (Ex Phys) Tyree Service: Cardiac Rehab Author Type: Fat Pressroom Worker Type: Allied Health Filed: 12/02/2017 10:26 AM Note Text: CARDIAC REHABILITATION PATIENT EDUCATION PROGRESS NOTE Name: Graciela Brito Date of Service:12/02/17 Time of Service: 10:22 AM ASSESSMENT: Risk Factors Identified: Age Diabetic: Non-Insulin Dependent Family History Gender Hyperlipidemia Hypertension Obesity Sedentary Lifestyle RECOMMENDATIONS: Patient interested in Phase II Outpatient Cardiac Rehab: Yes. Facility Preferred: [place]. Advised patient to f/u with extrusion bender in the [place] area for referral/order for Cardiac rehab in [place]. DIAGNOSIS: AVR with 21mm [facility] Trifecta [...] Rehabilitation Brochure Signature: Vivian Clements, ACSM-EP-C Pager: [phone] Date: December 02, 2017 Time: 10:22 AM PROGRESS Observed: 12/02/2017 Status: COMPLETED Source: [facility] 10:04 AM [facility] OTHER CAMPUS REPOSITORY HNO ID: [id number] Author: Cecilia Lei) CARMEL Hoskins Service: Pulmonary Disease Author Type: Nurse Practitioner Type: Progress Notes Filed: 12/02/2017 11:27 AM Note Text: Attestation signed by Magno Khan at 12/02/2017 11:29 AM [facility] STAFF PHYSICIAN NOTE OF PERSONAL INVOLVEMENT IN [...] cvl yest; CT Stable Call prn NIPPV [facility] SIGNATURE: Magno Khan MD [facility] TIME of SERVICE: 11:28 AM PULMONARY PROGRESS NOTE [facility] SERVICE DATE: December 02, 2017 SERVICE TIME: [...] 25 mg ORAL q 12 H Alison (Desktop Engineer) Trevor 25 mg at 12/02/17 0918 morphine 2 mg injection 2 mg INTRAVENOUS q 4 H PRN Alison (Desktop Engineer) Trevor 0.9% NaCl 2-10 mL 2-10 mL INTRAVENOUS q 12 H Alison (Desktop Engineer) Trevor 10 mL at 12/02/17 0919 bisacodyl 10 mg suppository (DULCOLAX) 10 mg RECTAL PRN Alison (Desktop Engineer) Trevor melatonin 3 mg tab(s) 3 mg ORAL HS PRN Alison (Desktop Engineer) Trevor polyethylene glycol 3350 17 g packet (MIRALAX, GLYCOLAX) 17 g ORAL DAILY Alison (Desktop Engineer) Trevor 17 g at 12/02/17 0918 senna-docusate 8.6-50 mg 1 tablet (SENNA-S) 1 tablet ORAL BID Alison (Desktop Engineer) Trevor 1 tablet at 12/02/17 0926 aspirin 162 mg chewable tab(s) 162 mg ORAL DAILY Alison (Desktop Engineer) Trevor 162 mg at 12/02/17 0919 prochlorperazine 5 mg injection (COMPAZINE) 5 mg INTRAVENOUS q 6 H PRN Alison (Desktop Engineer) Trevor 5 mg at 11/30/17 1459 pill splitter (patient-specific) 1 Each Miscell. (Med.Supl.;Non- Drugs) PRN Luke Lester pantoprazole DR 40 mg tab(s) (PROTONIX) 40 mg ORAL DAILY (6 AM) Alison (Desktop Engineer) Trevor 40 mg at 12/02/17 0557 dextrose 40 % 15 g 15 g ORAL PRN Alison (Desktop Engineer) Trevor Or glucagon 1 mg injection (GLUCAGEN) 1 mg INTRAMUSCULAR PRN Alison (Desktop Engineer) Trevor Or dextrose 50% in water 25 mL syringe 12.5 g INTRAVENOUS PRN Alison (Desktop Engineer) Trevor insulin lispro pen (rapid acting) (HumaLOG KWIKPEN) SUBCUTANEOUS w MEALS AND HS Alison (Desktop Engineer) Trevor 2 Units at 11/30/17 1812 clonazePAM [...] 02, 2017 TIME: 10:04 AM PAGER/CONTACT #: [phone] GLUCOSE METER Collected: 12/02/2017 Status: F Source: [facility] 7:59 AM HEALTH SYSTEM REPOSITORY TYPE CODE TESTS RESULT OUT OF REFERENCE UNITS RANGE LAB GLUBL(LOINC 70-99 mg/dL ) High Glucose Meter 119 Result Comment: RN NOTIFIED Performed By: #### GLMET #### [place] [address] HEMOGRAM Collected: 12/02/2017 Status: F Source: [facility] 4:00 AM HEALTH SYSTEM REPOSITORY TYPE CODE [...] MPV 10.9 Performed By: #### CBC1 #### [place] [address] BASIC PANEL Collected: 12/02/2017 Status: F Source: [facility] 4:00 AM [facility] SYSTEM REPOSITORY TYPE CODE [...] Gap 12 Performed By: #### P8 #### [place] [address] MDRD GFR Collected: 12/02/2017 Status: F Source: [facility] 4:00 HEALTH SYSTEM REPOSITORY TYPE CODE TESTS RESULT OUT OF RANGE REFERENCE UNITS LAB GFRFN(LOINC >60mL/min/1.73m ) 2 eGFR 44.41 Result Comment: If the patient is , multiply the result by 1.210. Performed By: #### GFR #### [place] [address] GLUCOSE METER Collected: 12/01/2017 Status: F Source: [facility] 9:09 PM [facility]ALTH SYSTEM REPOSITORY TYPE CODE TESTS RESULT OUT OF REFERENCE UNITS RANGE LAB GLUBL(LOINC 70-99 mg/dL ) High Glucose Meter 138 Result Comment: RN NOTIFIED Performed By: #### GLMET #### [facility] [address] [place], [place] [address] PROGRESS Observed: 12/01/2017 Status: COMPLETED Source: [facility] 6:00 PM CLINIC OTHER CAMPUS REPOSITORY HNO ID: [id number] Author: Rachel May (Pharmacist) Service: Pharmacy Author [...] problems. - Zithromax [Azithrom* Hives Preferred Pharmacy: [facility] pharmacy ([phone]) Current CLIENT SERVICE MANAGER Medications: Prior to Admission medications as [...] GLUCOSE METER Collected: 12/01/2017 Status: F Source: [facility] 5:25 PM HE[facility] SYSTEM REPOSITORY TYPE CODE TESTS RESULT OUT OF REFERENCE UNITS RANGE LAB GLUBL(LOINC 70-99 mg/dL ) High Glucose Meter 135 Result Comment: RN NOTIFIED Performed By: #### GLMET #### [place] [address] NURSING PROG Observed: 12/01/2017 Status: COMPLETED Source: [facility] 2:27 PM [facility] REPOSITORY HNO ID: [id number] Author: Fay (Rn) HANS Perez Service: Nursing Author Type: Registered Nurse Type: Nursing Progress Note Filed: 12/01/2017 2:28 PM Note Text: Report called to 4200, at bedside and aware of new room number GLUCOSE METER Collected: 12/01/2017 Status: F Source: [facility] 11:34 AM HE[facility] SYSTEM REPOSITORY TYPE CODE TESTS RESULT OUT OF REFERENCE UNITS RANGE LAB GLUBL(LOINC 70-99 mg/dL ) High Glucose Meter 132 Result Comment: RN NOTIFIED Performed By: #### GLMET #### [place] [address] PROGRESS Observed: 12/01/2017 Status: COMPLETED Source: [facility] 10:15 AM [facility] REPOSITORY HNO ID: [id number] Author: Alison Murray Service: Cardiovascular Surgery Author [...] -Lovenox and SCDs Dispo: Transfer to [facility] later today. Tests/Labs Ordered: 1. Chest X-ray 2. CBC 3. CMP SIGNATURE: Alison Murray CNP PATIENT NAME: Graciela Brito DATE: December 01, 2017 TIME: 3:04 PM PAGER/CONTACT #: [phone] ETX [id number] THERAPY NT Observed: 12/01/2017 Status: COMPLETED Source: [facility] 9:02 AM CLINIC OTHER CAMPUS REPOSITORY HNO ID: [id number] Author: Srinivasan (Pt) Quita Service: Physical Therapy Author Type: Physical Therapist Type: Therapy (PT/OT/Speech/Resp) Filed: 12/01/2017 9:06 AM Note Text: Physical Therapy Evaluation SERVICE DATE: 12/01/2017 SERVICE TIME: 0820 to 0850 ROOM: [place] [address] Recommended Discharge Disposition: Home PT Anticipated Discharge [...] (ADL);Unsteadiness on feet Interventions Provided: Evaluation;Therapeutic Activity (03356) $ Evaluation-Moderate (56754) Billed Units: 1 unit Therapeutic Activity (65402) Treatment Minutes: 12 1 unit Skilled Intervention(s): [...] technique for oxygen recovery. Patient able to yjv-gn-qcsfw without assist or use of upper extremities. [...] Procedure Laterality Date - CARDIAC CATH 10/26/2017 [facility] - DELIVERY ONLY 1970 , low [...] 01, 2017 TIME: 9:02 AM PAGER/CONTACT #: [phone] GLUCOSE METER Collected: 12/01/2017 Status: F Source: [facility] 7:08 AM HE[facility] SYSTEM REPOSITORY TYPE CODE TESTS RESULT OUT OF REFERENCE UNITS RANGE LAB GLUBL(LOINC 70-99 mg/dL ) High Glucose Meter 139 Performed By: #### GLMET #### [facility] [address] [place] [address] CHEST 1 VIEW Observed: 12/01/2017 Status: F Source: [facility] 6:19 AM HEALTH SYSTEM REPOSITORY Performed at [...] pneumothorax. HEMOGRAM Collected: 12/01/2017 Status: F Source: [facility] 4:45 AM HEALTH SYSTEM REPOSITORY TYPE CODE [...] MPV 10.7 Performed By: #### CBC1 #### [place] [address] BASIC PANEL Collected: 12/01/2017 Status: F Source: [facility] 4:45 AM HEALTH SYSTEM REPOSITORY TYPE CODE [...] Gap 11 Performed By: #### P8 #### [place] [address] MDRD GFR Collected: 12/01/2017 Status: F Source: [facility] 4:45 AM HE[facility] SYSTEM REPOSITORY TYPE CODE TESTS RESULT OUT OF RANGE REFERENCE UNITS LAB GFRFN(LOINC >60mL/min/1.73m ) 2 eGFR 37.84 Result Comment: If the patient is , multiply the result by 1.210. Performed By: #### GFR #### [place] [address] GLUCOSE METER Collected: 11/30/2017 Status: F Source: [facility] 9:44 PM HEALTH SYSTEM REPOSITORY TYPE CODE TESTS RESULT OUT OF REFERENCE UNITS RANGE LAB GLUBL(LOINC 70-99 mg/dL ) High Glucose Meter 134 Result Comment: RN NOTIFIED Performed By: #### GLMET #### [facility] [address] [place] [address] GLUCOSE METER Collected: 11/30/2017 Status: F Source: [facility] 4:37 PM HE[facility] SYSTEM REPOSITORY TYPE CODE TESTS RESULT OUT OF REFERENCE UNITS RANGE LAB GLUBL(LOINC 70-99 mg/dL ) High Glucose Meter 153 Result Comment: RN NOTIFIED Performed By: #### GLMET #### [facility] [address] [place] [address] HGB Collected: 11/30/2017 Status: F Source: [facility] 3:55 PM [facility] SYSTEM REPOSITORY TYPE CODE TESTS RESULT OUT OF RANGE REFERENCE UNITS LAB HGBI(LOINC) 11.2-15.7 g/dL Low Hgb 8.3 Performed By: #### HGBI #### [place] [address] HCT Collected: 11/30/2017 Status: F Source: [facility] 3:55 PM [facility] SYSTEM REPOSITORY TYPE CODE TESTS RESULT OUT OF RANGE REFERENCE UNITS LAB HCTI(LOINC) 34.1-44.9 % Low Hct 25.4 Performed By: #### HCTI #### [place] [address] BASIC PANEL Collected: 11/30/2017 Status: F Source: [facility] 3:55 PM HE[facility] SYSTEM REPOSITORY TYPE CODE [...] Gap 13 Performed By: #### P8 #### [place] [address] MDRD GFR Collected: 11/30/2017 Status: F Source: [facility] 3:55 PM HE[facility] SYSTEM REPOSITORY TYPE CODE TESTS RESULT OUT OF RANGE REFERENCE UNITS LAB GFRFN(LOINC >60mL/min/1.73m ) 2 eGFR 38.48 Result Comment: If the patient is , multiply the result by 1.210. Performed By: #### GFR #### [facility] [address] [place], [place] [address] GLUCOSE METER Collected: 11/30/2017 Status: F Source: [facility] 11:17 AM [facility] SYSTEM REPOSITORY TYPE CODE TESTS RESULT OUT OF REFERENCE UNITS RANGE LAB GLUBL(LOINC 70-99 mg/dL ) High Glucose Meter 160 Result Comment: RN NOTIFIED Performed By: #### GLMET #### [facility] [address] [place] [address] PROGRESS Observed: 11/30/2017 Status: COMPLETED Source: [facility] 9:30 AM CLINIC OTHER CAMPUS REPOSITORY HNO ID: [id number] Author: Alison Murray Service: Cardiovascular Surgery Author [...] TIME: 3:01 PM PAGER/CONTACT #: [phone] ETX [id number] THERAPY NT Observed: 11/30/2017 Status: COMPLETED Source: [facility] 8:58 AM CLINIC OTHER CAMPUS REPOSITORY HNO ID: [id number] Author: Yohana Erazo/Bryce Marie Service: Occupational Therapy Author Type: Occupational Therapist Type: Therapy (PT/OT/Speech/Resp) Filed: 11/30/2017 8:58 AM Note Text: OCCUPATIONAL THERAPY MISSED VISIT SERVICE DATE: 11/30/2017 SERVICE TIME: 0857 to 0857 ROOM: [place] [address] Attempted Evaluation. Patient not seen due to (Hgb trending down 8.3-> 7.5 -> 6.9 await possible transfusion). SIGNATURE: YEE Reynolds/Umberto PATIENT NAME: Graciela Brito DATE: November 30, 2017 TIME: 8:58 AM PAGER/CONTACT #: THERAPY NT Observed: 11/30/2017 Status: COMPLETED Source: [facility] 8:35 AM CLINIC OTHER CAMPUS REPOSITORY HNO ID: [id number] Author: Srinivasan (Pt) Quita Service: Physical Therapy Author Type: Physical Therapist Type: Therapy (PT/OT/Speech/Resp) Filed: 11/30/2017 8:35 AM Note Text: PHYSICAL THERAPY MISSED VISIT SERVICE DATE: 11/30/2017 SERVICE TIME: 826 to 830 ROOM: [place] [address] Attempted Evaluation. Patient not seen due to Other: See Comment (low HgB: 6.9, hold for resolution. Will attempt later.). SIGNATURE: Srinivasan Devlin PT PATIENT NAME: Graciela Brito DATE: November 30, 2017 TIME: 8:35 AM PAGER/CONTACT #: GLUCOSE METER Collected: 11/30/2017 Status: F Source: [facility] 7:44 AM HE[facility] SYSTEM REPOSITORY TYPE CODE TESTS RESULT OUT OF REFERENCE UNITS RANGE LAB GLUBL(LOINC 70-99 mg/dL ) High Glucose Meter 146 Result Comment: RN NOTIFIED Performed By: #### GLMET #### [place] [address] CHEST 1 VIEW Observed: 11/30/2017 Status: F Source: [facility] 6:20 AM HEALTH SYSTEM REPOSITORY Performed at [...] BASIC PANEL Collected: 11/30/2017 Status: F Source: [facility] 4:54 AM HEALTH SYSTEM REPOSITORY TYPE CODE [...] #### P8 #### [facility] [address] [place] [address] MAGNESIUM BLOOD Collected: 11/30/2017 Status: F Source: [facility] 4:54 AM HEALTH SYSTEM REPOSITORY TYPE CODE TESTS RESULT OUT OF REFERENCE UNITS RANGE LAB MAG(LOINC) 1.6-2.6 mg/dL Magnesium Blood 2.3 Performed By: #### MAG #### [facility] [address] [place] [address] MDRD GFR Collected: 11/30/2017 Status: F Source: [facility] 4:54 AM [facility] SYSTEM REPOSITORY TYPE CODE TESTS RESULT OUT OF RANGE REFERENCE UNITS LAB GFRFN(LOINC >60mL/min/1.73m ) 2 eGFR 41.62 Result Comment: If the patient is , multiply the result by 1.210. Performed By: #### GFR #### [facility] [address] [place] [address] HEMOGRAM Collected: 11/30/2017 Status: F Source: [facility] 4:54 HEALTH SYSTEM REPOSITORY TYPE CODE TESTS [...] #### CBC1 #### [facility] [address] [place] [id number] GLUCOSE METER Collected: 11/29/2017 Status: F Source: [facility] 9:53 PM HEALTH SYSTEM REPOSITORY TYPE CODE TESTS RESULT OUT OF REFERENCE UNITS RANGE LAB GLUBL(LOINC 70-99 mg/dL ) High Glucose Meter 192 Result Comment: RN NOTIFIED Performed By: #### GLMET #### [facility] [address] [place], [place] [address] PROGRESS Observed: 11/29/2017 Status: COMPLETED Source: [facility] 5:25 PM CLINIC OTHER CAMPUS REPOSITORY HNO ID: [id number] Author: Heaven Benz Service: Critical Care Author [...] 29, 2017 TIME: 5:33 PM PAGER/CONTACT #: [phone] GLUCOSE METER Collected: 11/29/2017 Status: F Source: [facility] 4:46 PM HEALTH SYSTEM REPOSITORY TYPE CODE TESTS RESULT OUT OF REFERENCE UNITS RANGE LAB GLUBL(LOINC 70-99 mg/dL ) High Glucose Meter 195 Result Comment: RN NOTIFIED Performed By: #### GLMET #### [place] [address] THERAPY NT Observed: 11/29/2017 Status: COMPLETED Source: [facility] 4:44 PM [facility] OTHER CAMPUS REPOSITORY HNO ID: [id number] Author: Srinivasan (Pt) Quita Service: Physical Therapy Author Type: Physical Therapist Type: Therapy (PT/OT/Speech/Resp) Filed: 11/29/2017 4:47 PM Note Text: PHYSICAL THERAPY MISSED VISIT SERVICE DATE: 11/29/2017 SERVICE TIME: 1632 to 1634 ROOM: [place] [address] Attempted Evaluation. Patient not seen due to per nurse: BP remains low/unstable, patient nauseated. Will attempt tomorrow morning. SIGNATURE: Srinivasan Devlin PT PATIENT NAME: Graciela Brito DATE: November 29, 2017 TIME: 4:44 PM PAGER/CONTACT #: ALLIED HEALTH Observed: 11/29/2017 Status: COMPLETED Source: [facility] 1:05 PM [facility] OTHER CAMPUS REPOSITORY HNO ID: [id number] Author: Tessy Martin RN Service: Home Care Services Author Type: Registered Nurse Type: Allied Health Filed: 11/29/2017 1:05 PM Note Text: BOOT TRIMMER NOTE SERVICE DATE: 11/29/2017 SERVICE TIME: 1:05 PM Referral: Home Care referral received by: EVAN Will continue to follow for physician orders SIGNATURE: Tessy Martin RN PATIENT NAME: Graciela Brito DATE: November 29, 2017 TIME: 1:05 PM CASE MGT INIT Observed: 11/29/2017 Status: COMPLETED Source: [facility] 12:50 PM CLINIC OTHER CAMPUS REPOSITORY HNO ID: [id number] Author: Samantha GonzalezRn) HANS Hui Service: (none) Author Type: Registered Nurse Type: Care Mgt Initial Assessment Filed: 11/29/2017 12:55 PM Note Text: CARE MANAGEMENT: ASSESSMENT AND DISCHARGE PLAN SERVICE DATE: 11/29/2017 SERVICE TIME: 12:50 PM PRIMARY CARE PHYSICIAN: Bird Garza MD ADMISSION STATUS: Inpatient Needs Prior to Discharge: Home Care Order;OT/PT Evaluation 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 No [...] 0 I feel financially burdened by my sbo-rb-tbyhsf expenses for my prescription medication: Disagree completely [...] low bp today--will follow. 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 Agreeable to [facility] visits --vns consulted. SIGNATURE: Samantha Hui RN PATIENT NAME: Graciela Brito DATE: November 29, 2017 TIME: 12:50 PM PAGER/CONTACT #: [phone] BLOOD GAS ARTERIAL Collected: 11/29/2017 Status: F Source: [facility] 12:00 PM HEALTH SYSTEM REPOSITORY TYPE CODE [...] Excess -2.1 Performed By: #### ABG #### [place] [address] PROGRESS Observed: 11/29/2017 Status: COMPLETED Source: [facility] 11:51 AM CLINIC OTHER CAMPUS REPOSITORY HNO ID: [id number] Author: Alison Murray Service: Cardiovascular Surgery Author [...] TIME: 11:51 AM PAGER/CONTACT #: [phone] ETX [id number] BASIC PANEL Collected: 11/29/2017 Status: F Source: [facility] 11:45 AM HEALTH SYSTEM REPOSITORY TYPE CODE [...] #### P8 #### [facility] [address] [place] [address] MDRD GFR Collected: 11/29/2017 Status: F Source: [facility] [address] [place] [address] SYSTEM REPOSITORY TYPE CODE TESTS RESULT OUT OF RANGE REFERENCE UNITS LAB GFRFN(LOINC >60mL/min/1.73m ) 2 eGFR 54.71 Result Comment: If the patient is , multiply the result by 1.210. Performed By: #### GFR #### [facility] [address] [place] [address] HEMOGRAM Collected: 11/29/2017 Status: F Source: [facility] 11:[facility] REPOSITORY TYPE CODE TESTS RESULT [...] #### CBC1 #### [facility] [address] [place], [place] [address] GLUCOSE METER Collected: 11/29/2017 Status: F Source: [facility] 11:40 AM HEALTH SYSTEM REPOSITORY TYPE CODE TESTS RESULT OUT OF REFERENCE UNITS RANGE LAB GLUBL(LOINC 70-99 mg/dL ) High Glucose Meter 143 Result Comment: RN NOTIFIED Performed By: #### GLMET #### [facility] [address] [place], [place] [address] THERAPY NT Observed: 11/29/2017 Status: COMPLETED Source: [facility] 10:51 AM CLINIC OTHER CAMPUS REPOSITORY O ID: [id number] Author: Srinivasan (Pt) Quita Service: Physical Therapy Author Type: Physical Therapist Type: Therapy (PT/OT/Speech/Resp) Filed: 11/29/2017 10:51 AM Note Text: PHYSICAL THERAPY MISSED VISIT SERVICE DATE: 11/29/2017 SERVICE TIME: 1038 to 0104 ROOM: [place] [address] Attempted Evaluation. Patient not seen due to Other: See Comment (low blood pressure, hold per nursing). Will attempt later this afternoon. SIGNATURE: Srinivasan Devlin PT PATIENT NAME: Grcaiela Brito DATE: November 29, 2017 TIME: 10:51 AM PAGER/CONTACT #: GLUCOSE METER Collected: 11/29/2017 Status: F Source: [facility] 9:55 AM HEALTH SYSTEM REPOSITORY TYPE CODE TESTS RESULT OUT OF REFERENCE UNITS RANGE LAB GLUBL(LOINC 70-99 mg/dL ) High Glucose Meter 120 Result Comment: RN NOTIFIED Performed By: #### GLMET #### [facility] [address] [place], [place] [address] GLUCOSE METER Collected: 11/29/2017 Status: F Source: [facility] 7:47 AM HEALTH SYSTEM REPOSITORY TYPE CODE TESTS RESULT OUT OF REFERENCE UNITS RANGE LAB GLUBL(LOINC 70-99 mg/dL ) High Glucose Meter 102 Result Comment: RN NOTIFIED Performed By: #### GLMET #### [facility] [address] [place], [place] [address] GLUCOSE METER Collected: 11/29/2017 Status: F Source: [facility] 6:38 AM HE[facility] SYSTEM REPOSITORY TYPE CODE TESTS RESULT OUT OF REFERENCE UNITS RANGE LAB GLUBL(LOINC 70-99 mg/dL ) High Glucose Meter 118 Result Comment: RN NOTIFIED Performed By: #### GLMET #### [facility] [address] [place], [place] [address] CHEST 1 VIEW Observed: 11/29/2017 Status: F Source: [facility] 6:03 AM HEALTH SYSTEM REPOSITORY Performed at [...] lungs. HEMOGRAM Collected: 11/29/2017 Status: F Source: [facility] 3:55 AM HEALTH SYSTEM REPOSITORY TYPE CODE [...] MPV 9.4 Performed By: #### CBC1 #### [place] [address] BASIC PANEL Collected: 11/29/2017 Status: F Source: [facility] 3:55 AM HEALTH SYSTEM REPOSITORY TYPE CODE [...] Gap 11 Performed By: #### P8 #### [place] [address] MAGNESIUM BLOOD Collected: 11/29/2017 Status: F Source: [facility] 3:55 AM [facility] SYSTEM REPOSITORY TYPE CODE TESTS RESULT OUT OF REFERENCE UNITS RANGE LAB MAG(LOINC) 1.6-2.6 mg/dL High Magnesium Blood 2.8 Performed By: #### MAG #### [place] [address] MDRD GFR Collected: 11/29/2017 Status: F Source: [facility] 3:55 AM [facility] SYSTEM REPOSITORY TYPE CODE TESTS RESULT OUT OF RANGE REFERENCE UNITS LAB GFRFN(LOINC >60mL/min/1.73m ) 2 eGFR 58.71 Result Comment: If the patient is , multiply the result by 1.210. Performed By: #### GFR #### [place] [address] GLUCOSE METER Collected: 11/29/2017 Status: F Source: [facility] 3:53 AM [facility] SYSTEM REPOSITORY TYPE CODE TESTS RESULT OUT OF REFERENCE UNITS RANGE LAB GLUBL(LOINC 70-99 mg/dL ) Glucose Meter 98 Performed By: #### GLMET #### [place] [address] GLUCOSE METER Collected: 11/29/2017 Status: F Source: [facility] 1:50 AM HE[facility] SYSTEM REPOSITORY TYPE CODE TESTS RESULT OUT OF REFERENCE UNITS RANGE LAB GLUBL(LOINC 70-99 mg/dL ) Glucose Meter 99 Performed By: #### GLMET #### [facility] [address] [place], [place] [address] ANES POST Observed: 11/29/2017 Status: COMPLETED Source: [facility] 12:07 AM CLINIC OTHER CAMPUS REPOSITORY HNO ID: [id number] Author: Ayush Estevez Service: Anesthesiology Author Type: [...] 29, 2017 TIME: 12:07 AM PAGER/CONTACT #: [phone] CONSULT Observed: 11/29/2017 Status: COMPLETED Source: [facility] 12:00 AM CLINIC OTHER CAMPUS REPOSITORY O ID: [id number] Author: Bairon Camacho Service: Cardiovascular Medicine Author Type: Physician Type: Consults Filed: 11/30/2017 3:15 PM Note Text: [facility] - Consultation PATIENT NAME: GRACIELA BRITO CSN: [id number] DATE OF : 1950 SEX/AGE: F/67 PATIENT TYPE: I HOSP SVC: ORCA LOCATION: [id number] DATE OF SERVICE: 11/29/2017 REFERRING PHYSICIAN: LUKE LESTER CONSULT REQUESTED BY: Dr. Lester. REASON FOR CONSULT: Postop AVR. HISTORY OF PRESENT ILLNESS: The patient is a 67-year-old lady with history off severe aortic stenosis, who was referred by her extrusion bender for consideration for valve replacement. The patient [...] any questions. Bairon Camacho MD Cardiology VMP:jae /[id number] GLUCOSE METER Collected: 11/28/2017 Status: F Source: [facility] 11:52 PM HEALTH SYSTEM REPOSITORY TYPE CODE TESTS RESULT OUT OF REFERENCE UNITS RANGE LAB GLUBL(LOINC 70-99 mg/dL ) High Glucose Meter 111 Performed By: #### GLMET #### [place] [address] GLUCOSE METER Collected: 11/28/2017 Status: F Source: [facility] 10:25 PM HEALTH SYSTEM REPOSITORY TYPE CODE TESTS RESULT OUT OF REFERENCE UNITS RANGE LAB GLUBL(LOINC 70-99 mg/dL ) High Glucose Meter 109 Performed By: #### GLMET #### [place] [address] GLUCOSE METER Collected: 11/28/2017 Status: F Source: [facility] 7:50 PM HEALTH SYSTEM REPOSITORY TYPE CODE TESTS RESULT OUT OF REFERENCE UNITS RANGE LAB GLUBL(LOINC 70-99 mg/dL ) High Glucose Meter 134 Performed By: #### GLMET #### [place] [address] GLUCOSE METER Collected: 11/28/2017 Status: F Source: [facility] 6:30 PM HEALTH SYSTEM REPOSITORY TYPE CODE TESTS RESULT OUT OF REFERENCE UNITS RANGE LAB GLUBL(LOINC 70-99 mg/dL ) High Glucose Meter 106 Performed By: #### GLMET #### [facility] [address] [place], [place] [address] GLUCOSE METER Collected: 11/28/2017 Status: F Source: [facility] 5:36 PM HEALTH SYSTEM REPOSITORY TYPE CODE TESTS RESULT OUT OF REFERENCE UNITS RANGE LAB GLUBL(LOINC 70-99 mg/dL ) Glucose Meter 92 Result Comment: RN NOTIFIED Performed By: #### GLMET #### [facility] [address] [place] [address] CHEST 1 VIEW Observed: 11/28/2017 Status: F Source: [facility] 5:27 PM HEALTH SYSTEM REPOSITORY Performed at [...] appearance. HEMOGRAM Collected: 11/28/2017 Status: F Source: [facility] 5:12 PM HEALTH SYSTEM REPOSITORY TYPE CODE [...] MPV 9.7 Performed By: #### CBC1 #### [place] [address] BLOOD GAS ARTERIAL Collected: 11/28/2017 Status: F Source: [address] [facility] SYSTEM REPOSITORY TYPE CODE TESTS [...] Excess -1.1 Performed By: #### ABG #### [place] [address] PROTIME Collected: 11/28/2017 Status: F Source: [address] [facility] REPOSITORY TYPE CODE TESTS RESULT OUT OF REFERENCE UNITS RANGE LAB PTI(LOINC) 9.3-11.9 sec Prothrombin Time 11.7 LAB INR(LOINC) INR 1.12 Result Comment: Standard Therapy 2.0-3.0 High Dose 2.5-3.5 Performed By: #### PT #### [facility] [address] [place] [address] ACTIVATED PTT Collected: 11/28/2017 Status: F Source: [address] [facility] REPOSITORY TYPE CODE TESTS RESULT OUT OF REFERENCE UNITS RANGE LAB APTT(LOINC 22.0-34.0 sec ) Activated PTT 25.1 Performed By: #### APTT #### [facility] [address] [place] [address] BASIC PANEL Collected: 11/28/2017 Status: F Source: [facility] 5:12 PM HEALTH SYSTEM REPOSITORY TYPE CODE [...] Gap 9 Performed By: #### P8 #### [place] [address] MAGNESIUM BLOOD Collected: 11/28/2017 Status: F Source: [facility] 5:12 PM HEALTH SYSTEM REPOSITORY TYPE CODE TESTS RESULT OUT OF REFERENCE UNITS RANGE LAB MAG(LOINC) 1.6-2.6 mg/dL High Magnesium Blood 3.0 Performed By: #### MAG #### [place] [address] MDRD GFR Collected: 11/28/2017 Status: F Source: [facility] 5:12 PM HEALTH SYSTEM REPOSITORY TYPE CODE TESTS RESULT OUT OF RANGE REFERENCE UNITS LAB GFRFN(LOINC >60mL/min/1.73m ) 2 eGFR 49.58 Result Comment: If the patient is , multiply the result by 1.210. Performed By: #### GFR #### [place] [address] GLUCOSE METER Collected: 11/28/2017 Status: F Source: [facility] 4:57 PM HEALTH SYSTEM REPOSITORY TYPE CODE TESTS RESULT OUT OF REFERENCE UNITS RANGE LAB GLUBL(LOINC 70-99 mg/dL ) High Glucose Meter 101 Result Comment: RN NOTIFIED Performed By: #### GLMET #### [facility] [address] [place] [address] BRIEF OP NOT Observed: 11/28/2017 Status: COMPLETED Source: [place] 4:55 PM [facility] REPOSITORY HNO ID: [id number] Author: Luke Lester Service: Cardiac Surgery Author Type: Physician Type: Brief Op Note Filed: 11/28/2017 4:56 PM Note Text: CARDIOTHORACIC BRIEF OP NOTE LOG ID: [id number] SURGERY/PROCEDURE DATE: 11/28/2017 INCISION/PROCEDURE START TIME: 12:25 PM INCISION CLOSE/PROCEDURE END TIME: 4:29 PM SURGEON(S) AND DIVISION OPERATIONS SPECIALIST(S): Surgeon(s) and Role: * Luke Lester - Primary Physician Matrix Bath Attendant: Mouna Davenport (Pa) Mail Examiner: Mouna Barahona SA Mail Examiner (Relief): Heaven Yip SA; Naty Villa) SA [...] 2449 CONSULT Observed: 11/28/2017 Status: COMPLETED Source: [place] 4:50 PM [facility] REPOSITORY HNO ID: [id number] Author: Heaven Benz Service: Critical Care Author [...] Procedure Laterality Date - CARDIAC CATH 10/26/2017 [facility] - DELIVERY ONLY 1970 , low [...] Secondary PAH by history 8. Known hypothyroidism. [facility] CRITICAL CARE PLAN: Bronchodilators , IV fluids, [...] NURSING PROG Observed: 11/28/2017 Status: COMPLETED Source: [place] 3:50 PM [facility] OTHER CAMPUS REPOSITORY HNO ID: [id number] Author: Enid GonzalezRn) HANS Epps Service: Cardiac Surgery Author Type: Registered Nurse Type: Nursing Progress Note Filed: 11/28/2017 3:57 PM Note Text: FAMILY NOTIFIED OF CASE STATUS. CG8 ARTERIAL PANEL Collected: 11/28/2017 Status: F Source: [facility] (I-STAT) 3:41 PM HEALTH SYSTEM REPOSITORY [...] 8.2 (i-STAT) Performed By: #### CG8IA #### [place] [address] ACT ARTERIAL PANEL Collected: 11/28/2017 Status: F Source: [facility] (I-STAT) 3:40 PM HEALTH SYSTEM REPOSITORY TYPE CODE TESTS RESULT OUT OF REFERENCE UNITS RANGE LAB ACTAI(LOINC 74-137 sec ) [facility] ACT ( 109 i-STAT) Performed By: #### ACTIA #### [place] [address] CG8 ARTERIAL PANEL Collected: 11/28/2017 Status: F Source: [facility] (I-STAT) 3:15 PM HEALTH SYSTEM REPOSITORY [...] 7.8 (i-STAT) Performed By: #### CG8IA #### [place] [address] ACT ARTERIAL PANEL Collected: 11/28/2017 Status: F Source: [facility] (I-STAT) 3:14 PM HEALTH SYSTEM REPOSITORY TYPE CODE TESTS RESULT OUT OF REFERENCE UNITS RANGE LAB ACTAI(LOINC 74-137 sec ) High [facility] ( 621 i-STAT) Performed By: #### ACTIA #### [place] [address] NURSING PROG Observed: 11/28/2017 Status: COMPLETED Source: [place] 2:54 PM CLINIC OTHER CAMPUS REPOSITORY HNO ID: [id number] Author: Enid Chavez) HANS Epps Service: Cardiac Surgery Author Type: Registered Nurse Type: Nursing Progress Note Filed: 11/28/2017 2:54 PM Note Text: FAMILY UPDATED ON CASE STATUS. ACT ARTERIAL PANEL Collected: 11/28/2017 Status: F Source: [facility] (I-STAT) 2:35 PM HEALTH SYSTEM REPOSITORY TYPE CODE TESTS RESULT OUT OF REFERENCE UNITS RANGE LAB ACTAI(LOINC 74-137 sec ) High [facility] ( 522 i-STAT) Performed By: #### ACTIA #### [facility] [address] [place], [place] [address] CG8 ARTERIAL PANEL Collected: 11/28/2017 Status: F Source: [facility] (I-STAT) 2:35 PM HEALTH SYSTEM REPOSITORY [...] #### CG8IA #### [facility] [address] [place], [place] [address] CG8 ARTERIAL PANEL Collected: 11/28/2017 Status: F Source: [facility] (I-STAT) 1:59 PM HEALTH SYSTEM REPOSITORY [...] 8.5 (i-STAT) Performed By: #### CG8IA #### [place] [address] ACT ARTERIAL PANEL Collected: 11/28/2017 Status: F Source: [facility] (I-STAT) 1:58 PM HEALTH SYSTEM REPOSITORY TYPE CODE TESTS RESULT OUT OF REFERENCE UNITS RANGE LAB ACTAI(LOINC 74-137 sec ) High [facility] ( 615 i-STAT) Performed By: #### ACTIA #### [place] [address] NURSING PROG Observed: 11/28/2017 Status: COMPLETED Source: [place] 1:40 PM CLINIC OTHER CAMPUS REPOSITORY HNO ID: [id number] Author: Enid (Rn) HANS Epps Service: Cardiac Surgery Author Type: Registered Nurse Type: Nursing Progress Note Filed: 11/28/2017 1:41 PM Note Text: FAMILY NOTIFIED OF CASE STATUS. CG8 VENOUS PANEL Collected: 11/28/2017 Status: F Source: [facility] (I-STAT) 1:34 PM HEALTH SYSTEM REPOSITORY TYPE [...] 8.2 (i-STAT) Performed By: #### CG8IV #### [place] [id number] CG8 ARTERIAL PANEL Collected: 11/28/2017 Status: F Source: [facility] (I-STAT) 1:25 PM HEALTH SYSTEM REPOSITORY TYPE [...] 7.8 (i-STAT) Performed By: #### CG8IA #### [place] [address] ACT ARTERIAL PANEL Collected: 11/28/2017 Status: F Source: [facility] (I-STAT) 1:24 PM HEALTH SYSTEM REPOSITORY TYPE CODE TESTS RESULT OUT OF REFERENCE UNITS RANGE LAB ACTAI(LOINC 74-137 sec ) High [facility] ( 714 i-STAT) Performed By: #### ACTIA #### [place] [address] CG8 ARTERIAL PANEL Collected: 11/28/2017 Status: F Source: [facility] (I-STAT) 12:55 PM HEALTH SYSTEM REPOSITORY TYPE [...] 8.8 (i-STAT) Performed By: #### CG8IA #### [place] [address] ACT ARTERIAL PANEL Collected: 11/28/2017 Status: F Source: [facility] (I-STAT) 12:54 PM HEALTH SYSTEM REPOSITORY TYPE CODE TESTS RESULT OUT OF REFERENCE UNITS RANGE LAB ACTAI(LOINC 74-137 sec ) High [facility] ( 934 i-STAT) Performed By: #### ACTIA #### [place] [address] NURSING PROG Observed: 11/28/2017 Status: COMPLETED Source: [place] 12:49 PM CLINIC OTHER CAMPUS REPOSITORY HNO ID: [id number] Author: Mercedez (Rn) HANS Thomas Service: Cardiac Surgery Author Type: Registered Nurse Type: Nursing Progress Note Filed: 11/28/2017 12:50 PM Note Text: FAMILY NOTIFIED OF SURGERY START AT 1224. CG8 ARTERIAL PANEL Collected: 11/28/2017 Status: F Source: [facility] (I-STAT) 11:41 AM HEALTH SYSTEM REPOSITORY TYPE [...] #### CG8IA #### [facility] [address] [place] [address] ACT ARTERIAL PANEL Collected: 11/28/2017 Status: F Source: [facility] (I-STAT) 11:40 AM HEALTH SYSTEM REPOSITORY TYPE CODE TESTS RESULT OUT OF REFERENCE UNITS RANGE LAB ACTAI(LOINC 74-137 sec ) [facility] ( 120 i-STAT) Performed By: #### ACTIA #### [facility] [address] [place] [address] RBC PRODUCTS Collected: 11/28/2017 Status: F Source: [facility] 10:50 AM HEALTH SYSTEM REPOSITORY TYPE CODE TESTS RESULT OUT OF REFERENCE UNITS RANGE LAB UNIT1(LOINC ) Xmatch Unit 1 see below Result Comment: Compatible LAB UNIT2(LOINC) Xmatch Unit 2 see below Result Comment: Compatible Performed By: #### RBCPS #### [facility] [address] [place] [address] ABO/RH CONFIRMATION Collected: 11/28/2017 Status: F Source: [facility] 10:35 AM HEALTH SYSTEM REPOSITORY TYPE CODE TESTS RESULT OUT OF REFERENCE UNITS RANGE LAB ABO(LOINC) A ABO Group LAB SUPERINTENDENT PIER(LOINC) RH Type Positive Performed By: #### ABOCK #### [facility] [address] [place] [address] GLUCOSE METER Collected: 11/28/2017 Status: F Source: [facility] 10:33 AM HEALTH SYSTEM REPOSITORY TYPE CODE TESTS RESULT OUT OF REFERENCE UNITS RANGE LAB GLUBL(LOINC 70-99 mg/dL ) Glucose Meter 92 Result Comment: MD NOTIFIED Performed By: #### GLMET #### [place] [address] ANES PREOP Observed: 11/28/2017 Status: COMPLETED Source: [place] 8:21 AM CLINIC OTHER CAMPUS REPOSITORY O ID: [id number] Author: Kate Francis Service: Anesthesiology Author Type: [...] Procedure Laterality Date - CARDIAC CATH 10/26/2017 [facility] - DELIVERY ONLY 1969 , low [...] - Coronary Artery Disease Father 63 from [place] - Cervical Cancer Sister - Coronary Artery [...] Surgery/Procedure. SIGNATURE: Kate Francis MD PATIENT NAME: Graciela Brito DATE: November 28, 2017 TIME: 8:21 AM CSN: [id number] OPERATIVE NO Observed: 11/28/2017 Status: COMPLETED Source: [place] 12:00 AM CLINIC OTHER CAMPUS REPOSITORY O ID: [id number] Author: Luke Lester Service: Cardiac Surgery Author Type: Physician Type: Operative Report Filed: 12/01/2017 7:52 PM Note Text: [facility] - Operative Report SURGEON: Luke Lester MD PATIENT NAME: GRACIELA BRITO CSN: [id number] DATE OF SURGERY: 11/28/2017 DATE OF : 1950 SEX/AGE: F/67 PATIENT TYPE: I HOSP SVC: [facility]CA LOCATION: [id number] DATE OF SURGERY: 11/28/2017 SURGEON: Luke Lester MD REFERRING PHYSICIAN: LUKE LESTER PREOPERATIVE DIAGNOSIS: Symptomatic severe aortic stenosis. POSTOPERATIVE DIAGNOSIS: Symptomatic severe aortic stenosis. PROCEDURES: Aortic valve replacement with a [address] [employer] Trifecta pericardial prosthesis; aortic root enlargement with autologous pericardium. DIVISION OPERATIONS SPECIALIST: Ms. Kincaid, Ms. Barahona, and Bob. ANESTHESIA: [...] A median sternotomy was made. The sternal finish rolls operator was placed in the wound. A pericardial [...] augment our closure on the right. A photolettering machine operator was administered. The aortic cross- [...] condition. Luke Lester MD Cardiothoracic Surgery JAL:modl /[id number] SURGICAL TISSUE EXAM Observed: 11/28/2017 Status: F Source: [facility] 12:00 AM HEALTH SYSTEM REPOSITORY Test performed at [place] [address] NAME: GRACIELA BRITO REQUESTING: LUKE LESTER MD [...] identified. No vegetations or perforations are present. Radiagraph Operator sections are submitted in formalin in one cassette. KVB:eladia MCKINNON M.D. (Electronic signature on file) Signed out: 12/01/2017 14:37 PRINTED: 12/01/2017 Page 1 of 1 Performed By: #### SURG #### [place] [address] PROGRESS Observed: 11/25/2017 Status: COMPLETED Source: [place] 2:23 PM CLINIC OTHER CAMPUS REPOSITORY HNO ID: [id number] Author: Reshma Stephen Service: (none) Author Type: Clinical Services Consultant Type: Progress Notes Filed: 05/19/2018 9:02 AM [...] 11/28/2017 STS Risk Score: 1.289% CARE TEAM: Relationship Specialist: [facility] PCP: N/A Other [...] Machado CNP Observed: 11/23/2017 Status: F Source: [place] MRSA/MSSA SCREEN 3:00 PM HEALTH SYSTEM REPOSITORY Test performed at [facility] No Staph aureus or MRSA detected. Performed By: #### PSTSS #### [place] [address] Observed: 11/23/2017 Status: F Source: [facility]-SENS CULT URINE 3:00 PM HEALTH SYSTEM REPOSITORY Test performed at [facility] No growth Performed By: #### C_URI #### [place] [address] CT CHEST W/O CONTRAST Observed: 11/23/2017 Status: F Source: [place] [address] 12:06 PM HEALTH SYSTEM REPOSITORY Performed at [...] process. PROTIME Collected: 11/23/2017 Status: F Source: [facility] 12:00 PM HEALTH SYSTEM REPOSITORY TYPE CODE TESTS RESULT OUT OF REFERENCE UNITS RANGE LAB MPTI(LOINC 9.0-11.5 sec ) Prothrombin Time 9.8 LAB MINR(LOINC ) INR 0.96 Result Comment: Standard Therapy 2.0-3.0 High Dose 2.5-3.5 Performed By: #### MPT #### [place] [address] URINALYSIS ROUTINE Collected: 11/23/2017 Status: F Source: [facility] 11:37 AM HEALTH SYSTEM REPOSITORY TYPE CODE [...] Urine NEGATIVE LAB SPG(LOINC) 1.005-1.030 Specific 1.011 [place], Ur LAB PHUR(LOINC 5.0-8.0 ) pH,Urine 6.0 [...] #### URIN2 #### [facility] [address] [place] [address] TYPE AND SCREEN Collected: 11/23/2017 Status: F Source: [place] [address]:[address] [place] [address] SYSTEM REPOSITORY TYPE CODE TESTS RESULT OUT OF REFERENCE UNITS RANGE LAB ABO(LOINC) A ABO Group LAB SUPERINTENDENT PIER(LOINC ) RH Type Positive LAB ABSCR(LOIN C) Antibody NEGATIVE Screen LAB BBCMT(LOIN C) Comment PAT specimen Performed By: #### T&S #### [place] [address] MDRD GFR Collected: 11/23/2017 Status: F Source: [address] SYSTEM REPOSITORY TYPE CODE TESTS RESULT OUT OF RANGE REFERENCE UNITS LAB GFRFN(LOINC >60mL/min/1.73m ) 2 eGFR 58.01 Result Comment: If the patient is , multiply the result by 1.210. Performed By: #### GFR #### [place] [address] HEMOGRAM Collected: 11/23/2017 Status: F Source: [address] SYSTEM REPOSITORY TYPE CODE TESTS RESULT [...] #### CBC1 #### [facility] [address] [place] [address] MAGNESIUM BLOOD Collected: 11/23/2017 Status: F Source: [facility] 11:34 HEALTH SYSTEM REPOSITORY TYPE CODE TESTS RESULT OUT OF REFERENCE UNITS RANGE LAB MAG(LOINC) 1.6-2.6 mg/dL Magnesium Blood 2.2 Performed By: #### MAG #### [facility] [address] [place] [address] COMPREHENSIVE PANEL Collected: 11/23/2017 Status: F Source: [address] [facility] SYSTEM REPOSITORY TYPE CODE TESTS [...] #### P14 #### [facility] [address] [place] [address] MDRD GFR Collected: 11/23/2017 Status: F Source: [facility] 11:34 AM HEALTH SYSTEM REPOSITORY TYPE CODE TESTS RESULT OUT OF RANGE REFERENCE UNITS LAB GFRFN(LOINC >60mL/min/1.73m ) 2 eGFR 58.01 Result Comment: If the patient is , multiply the result by 1.210. Performed By: #### GFR #### [facility] [address] [place] [address] HGB A1C Collected: 11/23/2017 Status: F Source: [facility] 11:34 AM HEALTH SYSTEM REPOSITORY TYPE CODE TESTS RESULT OUT OF RANGE REFERENCE UNITS LAB A1C5(LOINC) 4.2-6.3 % Hgb A1c 5.7 Result Comment: Method is National Glycohemoglobin Standardization Program (NGSP) compliant. LAB ESAVG(LOINC) mg/dl Est. Avg Glucose 117 Performed By: #### HA1C #### [facility] [address] [place] [address] HISTORY PHYSICAL Observed: 11/23/2017 Status: COMPLETED Source: [place] 11:25 AM CLINIC OTHER CAMPUS REPOSITORY HNO ID: [id number] Author: Rimma Shipman (Desktop Engineer) Re Service: (none) Author Type: Nurse Practitioner [...] new PCP who referred her to a extrusion bender. ECHO 2017 shows mild to moderate AV [...] Procedure Laterality Date - CARDIAC CATH 10/26/2017 [facility] - DELIVERY ONLY 1969 , low [...] - Coronary Artery Disease Father 63 from [place] - Cervical Cancer Sister - Coronary Artery [...] #: CNOV Observed: 11/23/2017 Status: COMPLETED Source: [place] 10:00 AM [facility] OTHER [place] REPOSITORY Office Visit (AKPL[facility]) GRACIELA BRITO ([id number]) 1950 F Date Time Provider Department 11/23/17 10:00 AM P[facility] LAB BATH [facility] During your visit today, we recorded the following information about you: Referring Provider: LUKE LESTER [[id number]] Allergies As of Date: 11/23/2017 Noted Allergy Reaction CIPRO (CIPROFLOXACIN) 11/26/2008 4 - Hives CONTRAST DYE 01/01/2009 4 - Hives HUMIRA (ADALIMUMAB) 11/16/2017 12 - Shortness of Breath LANTUS (INSULIN GLARGINE) 01/01/2009 7 - Swelling ZITHROMAX (AZITHROMYCIN) 01/01/2009 4 - Hives Date Reviewed: 11/18/2017 Reviewed by: Jayla (Rn) HANS Rosas - Fully Assessed Reason for Visit: Shortness of Breath [227] Visit Diagnoses:Aortic valve stenosis, etiology of cardiac valve disease unspecified [I35.0] Preoperative testing [Z01.818] Nonrheumatic aortic valve stenosis [I35.0] Obstructive sleep apnea syndrome [G47.33] Order(s):SPIROMETRY BASELINE ONLY [1745720] Order #: [id number] LUNG DIFFUSION CAPACITY (DLCO) [7823462] Order #: [id number] LUNG VOLUMES [0950506] Order #: [id number] Prescriptions as of 11/23/2017 Sig: METHOTREXATE (BULK) [...] 1.84 Performed By: #### L100.0100, L101.9900 #### [facility] [address] [place], [address] ERYTHROCYTE SED RATE Collected: 11/18/2017 Status: F Source: [place] 1:21 PM [facility] REPOSITORY TYPE CODE TESTS RESULT OUT OF RANGE REFERENCE UNITS LAB L102.0000 0-30 mm/hr Normal SED RATE 4 Performed By: #### L100.0100, L101.9900 #### [facility] [address] [place], [place], [id number] BUN Collected: 11/18/2017 Status: F Source: [place] 1:21 PM [facility] REPOSITORY TYPE CODE TESTS RESULT OUT OF RANGE REFERENCE UNITS LAB L501.1000 7-18 mg/dL High BUN 21 Performed By: #### L501.1000, L501.1105, L501.1800, L501.4100, L501.4405, L501.6710 #### [facility] [address] [place], [place], [id number] SERUM CREATININE AND Collected: 11/18/2017 Status: F Source: [place] GFR 1:21 PM [facility] [...] L501.1000, L501.1105, L501.1800, L501.4100, L501.4405, L501.6710 #### [facility] [address] [place], [address] ALBUMIN, SERUM Collected: 11/18/2017 Status: F Source: [place] 1:21 PM [facility] REPOSITORY TYPE CODE TESTS RESULT OUT OF RANGE REFERENCE UNITS LAB L501.1800 3.2-5.0 g/dL Normal ALB 3.8 Performed By: #### L501.1000, L501.1105, L501.1800, L501.4100, L501.4405, L501.6710 #### [facility] [address] [place], [address] AST(SGOT) Collected: 11/18/2017 Status: F Source: [place] 1:21 PM [facility] REPOSITORY TYPE CODE TESTS RESULT OUT OF RANGE REFERENCE UNITS LAB L501.4100 15-37 U/L Normal AST 19 Performed By: #### L501.1000, L501.1105, L501.1800, L501.4100, L501.4405, L501.6710 #### [facility] [address] [place], [address] ALANINE AMINOTRANSFERAS Collected: 11/18/2017 Status: F Source: [place] (SGPT) 1:21 PM [facility] REPOSITORY TYPE CODE TESTS RESULT OUT OF RANGE REFERENCE UNITS LAB L501.4405 13-56 U/L Normal ALT 21 Result Comment: Please note revised ALT reference range effective 2017. Performed By: #### L501.1000, L501.1105, L501.1800, L501.4100, L501.4405, L501.6710 #### [facility] [address] [place], [address] CRP Collected: 11/18/2017 Status: F Source: [place] 1:21 PM [facility] - [...] L501.1000, L501.1105, L501.1800, L501.4100, L501.4405, L501.6710 #### [facility] [address] [place], [address] HOSP Observed: 11/17/2017 Status: COMPLETED Source: [place] 12:00 AM CLINIC OTHER CAMPUS REPOSITORY Patient:Graciela Brito MRN: <[id number]> Height:4' 9(1.448 m) Weight:224 lb (101.606 kg) [...] 11/28/2017 STS Risk Score: 1.289% CARE TEAM: Relationship Specialist: [facility] PCP: N/A Other [...] with severe , No AI 2D Echo: [facility] EF: 65% RV: Mildly dilated [...] HISTORY PHYSICAL Observed: 11/16/2017 Status: COMPLETED Source: [place] 5:09 PM CLINIC OTHER CAMPUS REPOSITORY O ID: [id number] Author: Luke Lester Service: (none) Author Type: [...] stenosis. She is reestablished care with her extrusion bender and a more recent echo now shows [...] at night and is followed by a 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. Patient is Able to Perform the Following [...] Procedure Laterality Date - CARDIAC CATH 10/26/2017 [facility] - DELIVERY ONLY , low cervical [...] - Coronary Artery Disease Father 63 from [place] - Cervical Cancer Sister - Coronary Artery [...] 2017 TIME: 5:09 PM PAGER/CONTACT #: ETX [phone] CNOV Observed: 11/16/2017 Status: COMPLETED Source: [place] 3:30 PM [facility] REPOSITORY Office Visit (AGVASACC) GRACIELA BRITO ([id number]) 1950 F Date Time Provider Department 11/16/17 [...] contact us if you have any questions: [phone]. Blossom Roberson [phone] Luke Lester MD 11/16/2017 5:20 PM Signed [...] stenosis. She is reestablished care with her extrusion bender and a more recent echo now shows [...] at night and is followed by a 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. Patient is Able to Perform the Following [...] Procedure Laterality Date - CARDIAC CATH 10/26/2017 [facility] - DELIVERY ONLY , low cervical [...] - Coronary Artery Disease Father 63 from [place] - Cervical Cancer Sister - Coronary Artery [...] above ECHO: see above Assessment/Plan In summary, Gracieal Brito is a 67-year-old woman experiencing exertional [...] 2017 TIME: 5:09 PM PAGER/CONTACT #: [phone] [phone] Referring Provider: TAZ ALLEN [[id number]] Allergies As of Date: 11/16/2017 Noted Allergy [...] Diagnosis:Screening for nephropathy [Z13.89] Order(s):SPIROMETRY BASELINE ONLY [4700181] Order #: [id number] FUTURE TSH, REFLEX [6196718] Order #: [id number] FUTURE CT CHEST WO IVCON [3683614] Order #: [id number] FUTURE Prescriptions as of 11/16/2017 Sig: CALCITRIOL [...] GABAPENTIN 300 MG CAPSULE >> Cassius Amy CULINARY INTERN 11/16/2017 3:46 PM >> AMY, CASSIUS CULINARY INTERN TueNov 16, 2017 3:46 PM Not taking OXYCODONE-ACETAMINOPHEN 5 MG-325 MG TABLET >> Cassius Amy CULINARY INTERN 11/16/2017 3:47 PM >> AMY, CASSIUS CULINARY INTERN TueNov 16, 2017 3:47 PM Not taking TRAMADOL 50 MG TABLET >> Cassius Amy CULINARY INTERN 11/16/2017 3:47 PM >> AMY, CASSIUS CULINARY INTERN TueNov 16, 2017 3:47 PM Not taking LEVEMIR U-100 INSULIN 100 UNIT/ML SUBCUTANEOUS SOLUTION >> Cassius Amy CULINARY INTERN 11/16/2017 3:47 PM >> AMY, CASSIUS CULINARY INTERN TueNov 16, 2017 3:47 PM Not taking GLUCOPHAGE 500 MG TABLET >> Cassius Amy CULINARY INTERN 11/16/2017 3:29 PM >> AMY, CASSIUS CULINARY INTERN TueNov 16, 2017 3:29 PM Not taking LIBRAX (WITH CLIDINIUM) 5 MG-2.5 MG CAPSULE >> Cassius Amy CULINARY INTERN 11/16/2017 3:46 PM >> AMY, CASSIUS CULINARY INTERN TueNov 16, 2017 3:46 PM Not taking CRESTOR 10 MG TABLET >> Cassius Amy CULINARY INTERN 11/16/2017 3:29 PM >> AMY, CASSIUS CULINARY INTERN TueNov 16, 2017 3:29 PM Not taking NORTRIPTYLINE 10 MG CAPSULE >> Cassius Amy CULINARY INTERN 11/16/2017 3:29 PM >> AMY, CASSIUS CULINARY INTERN TueNov 16, 2017 3:29 PM Not taking PREVACID 30 MG CAPSULE,DELAYED RELEASE >> Cassius Amy CULINARY INTERN 11/16/2017 3:47 PM >> AMY, CASSIUS CULINARY INTERN TueNov 16, 2017 3:47 PM Not taking [...] contact us if you have any questions: [phone]. Blossom Da [phone] Level of Service: NEW PATIENT VISIT LEVEL 5 [70589] Letter Text Encounter Status:Closed by LUKE LESTER [...] ISTAT 96 Performed By: #### L9000.0800 #### [facility] Point of Care [facility] [address] [place], [place] [address] VENOUS BLOOD GAS Collected: 10/26/2017 Status: F [...] 29 ISTAT Performed By: #### L9000.0810 #### [facility] Point of Care [address] [place] [id number] VENOUS BLOOD GAS Collected: 10/26/2017 Status: F Source: [place] 11:41 AM [facility] - [...] 31 ISTAT Performed By: #### L9000.0810 #### [facility] Point of Care [address] [place] [id number] VENOUS BLOOD GAS Collected: 10/26/2017 Status: F [...] 31 ISTAT Performed By: #### L9000.0810 #### [facility] Laboratory Point of Care [address] [place] [address] VENOUS BLOOD GAS Collected: 10/26/2017 Status: F Source: [place] 11:33 AM [facility] - [...] 30 ISTAT Performed By: #### L9000.0810 #### [facility] Laboratory Point of Care [address] [place] [address] CHEST PA AND LATERAL Observed: 10/18/2017 Status: F Source: [place] 4:24 PM [facility] REPOSITORY [facility] Imaging Services [address] [place] [address] Chest PA and Lateral MR#: [id number] Acct: [id number] Name: GRACIELA BRITO Rep #: [id number] : 1950 F 67 From: Jeffrey Hardy MD PCP: Bird Garza MD Status: PRE TXC Study: Chest PA and Lateral Date of Exam: 10/18/17 Exam# [id number] Ordering Dr: Taz Allen MD STUDY: X-RAY [...] CC: Taz Allen MD; Bird Garza MD Title Insurance Agent: Signed CBC W/DIFF, AUTOMATED Collected: 10/18/2017 Status: F Source: [place] 4:23 PM [facility] - [...] Performed By: #### L100.0100, L300.3900, L500.2500 #### [facility] [address] [facility] [place], [place], [address] PROTHROMBIN TIME W/INR Collected: 10/18/2017 Status: F Source: [place] 4:23 PM [facility] REPOSITORY TYPE CODE TESTS RESULT OUT OF RANGE REFERENCE UNITS LAB L300.4150 11.7-14.9 SECONDS Normal PROTIME 12.4 LAB L300.4200 Normal INR 1.0 Performed By: #### L100.0100, L300.3900, L500.2500 #### [facility] [address] [facility] [place], [place], [address] BASIC METABOLIC Collected: 10/18/2017 Status: F Source: [place] PROFILE (BMP) 4:23 PM [facility] Performed By: #### L100.0100, L300.3900, L500.2500 #### [facility] [address] [place], [address] CARDIOLOGY VISIT Observed: 10/18/2017 Status: F Source: [place] REPORT 3:51 PM [facility] REPOSITORY [facility] [address] [place] [address] OFFICE VISIT Date of Service: 10/18/17 MR#: [id number] Acct: [id number] Name: GRACIELA BRITO Rep #: [id number] : 1950 Provider: Taz Allen MD Age/Sex: 67/F [place] [facility] [place]: Signed HPI review echo per PK: [...] which was 05/21/[address] Villalobos at [facility]. At that time she basically had no [...] her father at age 63 who of MS. she underwent left her catheterization and 09/22/16 [...] DAILY #90 tab 09/20/17 [Rx Confirmed 10/18/17] [facility] Medical History Secondary pulmonary arterial hypertension (Chronic) [...] 46 Father CAD (coronary artery disease) from MS age 63 Social History Smoking Status: Former [...] of Care Code Off vis,est,level 3 10/18/17 4841 <Electronically signed by Taz Allen MD> Date Taz Allen MD Cosigner Signature: Date (if applicable) CC: 12 LEAD EKG PERFORMED Observed: 10/18/2017 Status: F Source: [place] BY ARISTEO 3:51 PM [facility] REPOSITORY [facility] [address] [place] [address] 12 Lead EKG performed by ARISTEO 10/18/17 6084 MR#: [id number] Acct: [id number] Name: GRACIELA BRITO Rep #: [id number] : 1950 67 From: Taz Allen MD Attending Dr: Taz Allen MD Status: DEP AMB Ordering Dr: Taz Allen MD Date: 10/18/17 [place] [facility] [place]: F C Admitted: BMS/12 Lead EKG performed by [facility] ECG Report Interpretation Sinus Rhythm Low voltage in precordial leads. -Old anteroseptal infarct. ABNORMAL Electronically signed on 11/07/2017 at 13:55 by Taz Allen 11/07/17 1358 Date Taz Allen MD CC: Bird Garza MD Date Dictated: 10/18/17 1550 Date Transcribed: 10/18/17 1550 Title Insurance Agent: Signed ALLERGIES ALLERGIES DATE TYPE / CODE NAME / CODE REACTION SEVERITY SOURCE Drug ciprofloxacin Unknown Unknown [place] 9 Allergy/875304573( HCl/Z750123340(RXN Community SNOMED CT) OR) Hospital Repository Drug insulin glargine, Unknown Unknown [place] 9 Allergy/464410075( human recombin. Community SNOMED CT) a/M561302559(RXNOR Hospital ) Repository Drug iodine/H709415431( Hives Unknown [place] 9 Allergy/519050447( RXNORM) Community SNOMED CT) Hospital Repository Drug prednisone/T581264 Visual SV [place] 9 Allergy/657046115( 164(RXNORM) changes, Community SNOMED CT) glaucoma Hospital Repository Drug amiodarone/U404647 Unknown Unknown [place] 9 Allergy/210522603( 484(RXNORM) [facility] SNOMED CT) Hospital Repository Drug diltiazem/R6835126 dizziness [place] 9 Allergy/739702855( 14(RXNORM) Community SNOM[facility]) Hospital Repository Miscellaneous benjamin Neck pain SV [place] 8 Allergy/665533793( tingling Community SNOMED [facility]) Hospital Repository DRUG AMIODARONE OTHER: SEE C [place] 8 INGREDI/700983587( Clinic Other SNOMED CT) [place] Repository DRUG DILTIAZEM OTHER: SEE C [place] 8 INGREDI/120262766( Clinic Other SNOMED CT) [place] Repository DRUG PREDNISONE OTHER: SEE [facility] 8 INGREDI/379998740( Clinic Other SNOMED CT) [place] Repository Drug ciprofloxacin/F006 Unknown Unknown [place] 8 Allergy/232308332( 062419(RXNORM) Community SNOMED CT) Hospital Repository DRUG ADALIMUMAB SHORTNESS OF [place] 8 INGREDI/175829825( Clinic Other SNOMED CT) [place] Repository DRUG CONTRAST DYE [facility] 9 INGREDI/354662738( Clinic Other SNOMED CT) [place] Repository DRUG INSULIN GLARGINE [facility] 9 INGREDI/728132241( Clinic Other SNOMED CT) [place] Repository DRUG AZITHROMYCIN [facility] 9 INGREDI/582947741( Clinic Other SNOMED CT) [place] Repository DRUG CIPROFLOXACIN [facility] 9 INGREDI/140239399( Clinic Other SNOMED CT) [place] Repository NG/212102913(SNOME AMIODARONE [facility] Repository NG/849556994(SNOME DILTIAZEM [facility] System Repository NG/069234267(SNOME PREDNISONE [facility] D [facility]) Health System Repository NG/746186563(SNOME CIPROFLOXACIN [facility] D [facility]) [facility] System Repository NG/347695847(SNOME CONTRAST DYE [facility]) [facility] Repository NG/817795070(SNOME ADALIMUMAB [facility]) [facility] System Repository NG/591063714(SNOME INSULIN GLARGINE [facility] D [facility]) [facility] System Repository NG/239270244(SNOME AZITHROMYCIN [facility] D [facility]) Health System Repository ENCOUNTERS ENCOUNTERS ADMIT/DISCHARGE ACCOUNT NUMBER ADMITTING ENCOUNTER LOCATION SOURCE CLASS 10/10/2018 [id number] Ambulatory BMSBuilding: [place] BMS.CF.[facility] Hospital Repository 10/09/2018/10/10/19 [id number] Ambulatory [place] [facility] ding:CLSPRoo Repository m: PFK277 09/27/2018 [id number] Ambulatory BMSBuilding: [place] BMS.CF.[facility] Repository 09/27/2018 [id number] Ambulatory [facility] ding:CVS Repository 09/25/2018 [id number] [facility] 09/25/2018/09/25/19 [id number] Ambulatory BMSBuilding: [place] 19 BMS.[facility] Repository 09/25/2018/09/25/19 [id number] Ambulatory BMSBuilding: [place] 19 BMS.[facility] Repository 09/20/2018 [id number] Ambulatory [facility] ding:LAB Repository 09/07/2018/09/08/20 [id number] Emergency [place] ding:ED Repository 09/04/2018 [id number] Ambulatory [facility] ding:LAB Repository 08/24/2018/08/24/20 [id number] Ambulatory [address] Repository 08/24/2018/08/24/20 [id number] Ambulatory [address] MEDICAL Repository CENTERBuildi ng:AGCARDPHR A 08/22/2018/08/22/20 [id number] Ambulatory [place] ding:LAB Repository 08/09/2018 [id number] Ambulatory BMSBuilding: [place] [facility] Repository 08/08/2018/08/18/20 [id number] Ambulatory [place] ding:LAB Repository 07/14/2018/07/14/20 [id number] Ambulatory [address] ding:LAB Repository 06/28/2018 [id number] Ambulatory [facility] ding:CVS Repository 06/28/2018 [id number] Ambulatory BMSBuilding: [place] [facility] Repository 06/27/2018/06/27/20 [id number] Ambulatory BMSBuilding: [place] 18 BMS.[facility] Repository 06/26/2018/06/26/20 [id number] Emergency [place] [facility] ding:ED Repository 06/09/2018/06/20/20 [id number] Ambulatory [place] [facility] ding:LAB Repository 05/12/2018/05/12/20 [id number] Ambulatory [place] [facility] ding:LAB Repository 05/11/2018/05/11/20 [id number] Ambulatory BMSBuilding: [place] 18 BMS.[facility] Repository 04/25/2018 [id number] Ambulatory [facility] ding:PSN Repository 04/25/2018 [id number] Ambulatory BMSBuilding: [place] [facility] Repository 04/24/2018/04/28/20 [id number] Ambulatory [place] [facility] ding:CR Repository 04/17/2018/04/18/20 [id number] Ambulatory [place] [facility] ding:CR Repository 04/17/2018/04/17/20 [id number] Ambulatory BMSBuilding: [place] 18 BMS.[facility] Repository 04/10/2018/04/10/20 [id number] Ambulatory BMSBuilding: [place] 18 BMS.[facility] Repository 04/07/2018 [id number] Ambulatory [facility] ding:LAB Repository 04/07/2018 [id number] Ambulatory BMSBuilding: [place] [facility] Repository 03/31/2018/03/31/20 [id number] Ambulatory [place] [facility] ding:LAB Repository 03/31/2018 [id number] Ambulatory BMSBuilding: [place] BMS.[facility] Repository 03/30/2018 [id number] Ambulatory [facility] ding:CVS Repository 03/30/2018 [id number] Ambulatory BMSBuilding: [place] [facility] Repository 03/20/2018 [id number] Ambulatory [facility] ding:LAB Repository 03/20/2018/03/20/20 [id number] Ambulatory BMSBuilding: [place] 18 BMS.[facility] Repository 03/15/2018/03/15/20 [id number] Ambulatory [place] [facility] ding:LAB Repository 03/15/2018/03/15/20 [id number] Ambulatory BMSBuilding: [place] 18 BMS.[facility] Repository 03/15/2018/03/18/20 [id number] Ambulatory [place] [facility] ding:CR Repository 02/16/2018 [id number] Ambulatory BMSBuilding: [place] BMS.[facility] Repository 02/15/2018/02/17/20 [id number] Ambulatory [place] [facility] ding:CR Repository 02/15/2018/02/16/20 [id number] Ambulatory [place] [address] [place] [address] ding:LAB Repository 02/06/2018 [id number] [facility] Repository 01/16/2018/01/17/20 [id number] Ambulatory [place] [facility] ding:CR Repository 01/16/2018/01/17/20 [id number] Ambulatory [place] [facility] ding:LAB Repository 12/30/2017/12/31/19 [id number] Ambulatory BMSBuilding: [place] 18 BMS.[facility] Repository 12/29/2017/12/30/19 [id number] Ambulatory [address] Other [place] Repository 12/29/2017/12/30/19 [id number] Ambulatory [address] MEDICAL Repository CENTERBuildi ng:AGVASACC 12/29/2017 [id number] Ambulatory [facility] [place] Repository 12/29/2017/12/30/19 [id number] Ambulatory [address] MEDICAL Repository CENTERBuildi ng:AKXRGN 12/28/[id number] [place] [facility] ding:CR Repository 12/23/2017/12/24/19 [id number] Emergency [address] ding:ED Repository 12/13/2017 [id number] Ambulatory [facility] ding:LAB Repository 12/13/2017/12/14/19 [id number] Ambulatory BMSBuilding: [place] 18 BMS.[facility] Repository 12/12/2017 [id number] Ambulatory BMSBuilding: [place] BMS.[facility] Repository 12/12/2017 [id number] Ambulatory [facility] ding:LAB Repository 12/09/2017 [id number] Ambulatory BMSBuilding: [place] BMS.[facility] Repository 12/09/2017 [id number] Ambulatory [facility] Repository 12/09/2017/12/10/19 [id number] Ambulatory [address] MEDICAL Repository CENTERBuildi ng:AKLB 12/09/2017/12/10/19 [id number] Ambulatory [address] Repository 12/09/2017/12/10/19 [id number] Ambulatory [address] MEDICAL Repository CENTERBuildi ng:AGVASACC 12/08/2017 [id number] Ambulatory BMSBuilding: [place] BMS.[facility] Repository 11/28/2017/12/05/19 [id number] [facility], Inpatient [address] Repository 11/28/2017/12/05/19 [id number] [facility], Inpatient [address] MEDICAL Repository RUSKINBuildi nRoom: 4218Bed: 11/23/2017 [id number] Ambulatory [facility] Repository 11/23/2017 [id number] Ambulatory [facility] Repository 11/23/2017/11/24/19 [id number] Ambulatory [address] MEDICAL Repository CENTERBuildi ng:AKLBF 11/23/2017 [id number] Ambulatory [facility] Repository CENTERBuildi ng:AKCTB 11/23/2017 [id number] Ambulatory [facility] Repository 11/23/2017 [id number] Ambulatory [facility] MEDICAL Repository CENTERBuildi ng:AKPSTB 11/23/2017 [id number] Ambulatory [facility] Other [place] Repository 11/23/2017 [id number] Ambulatory [facility] MEDICAL Repository CENTERBuildi ng:AKPLB 11/23/2017 [id number] Ambulatory [facility] MEDICAL Repository CENTERBuildi ng:AKCTB 11/23/2017 [id number] Ambulatory [facility] MEDICAL Repository CENTERBuildi ng:AKLBF 11/23/2017 [id number] Ambulatory [facility] MEDICAL Repository CENTERBuildi ng:AKLBF 11/23/2017 [id number] Ambulatory [facility] MEDICAL Repository CENTERBuildi ng:AKLBF 11/21/2017 [id number] Ambulatory [facility] MEDICAL Repository CENTERBuildi ng:AKPSTB 11/18/2017 [id number] Ambulatory [facility] ding:LAB Repository 11/16/2017/11/16/19 [id number] Ambulatory [address] Other [place] Repository 11/16/2017/11/16/19 [id number] Ambulatory [address] MEDICAL Repository CENTERBuildi ng:AGVASACC 10/26/2017 [id number] Ambulatory [facility] ding:CLSP Repository 10/26/2017 [id number] [facility] 10/18/2017/10/18/19 [id number] Ambulatory B[place]Building: [place] Repository PAYERS PAYERS ENCOUNTER GUARANTOR PAYER SUBSCRIBER SOURCE 10/10/2018 LORI Campbell Primary GRACIELA A [place] [id number] Insurance:MEDICARE JENKINSDOB: Community [place] PART A BPolicy Number: [id number] Hospital [place] [id number] Repository 17[address]Tar: 330) Date:2018-09-25 [phone] () 10/10/2018 Secondary GRACIELA A [place] Insurance:AETALONDRA BRITODOB: Community SUPPLEMENT INSPolicy [id number] Hospital Number: Repository [id number] Date:0162-74-88PUFGL SENIOR SUPPLEMENT [address]FR[place], [place] [address]TE: 10/10/2018 Tertiary NOT GIVENUNK [place] Insurance:SELF PAY [facility] Number: Effective Repository Date:2018-10-10 10/09/2018 LORI R Primary GRACIELA A [place] [id number] Insurance:MEDICARE JENKINSDOB: Community [place] PART A BPolicy Number: [id number], [place] [id number] Repository 32310Emt: (330) Date:2018-09-25 [phone] () 10/09/2018 Secondary GRACIELA A [place] Insurance:AETNA SR JENKINSDOB: Community SUPPLEMENT INSPolicy [id number] Hospital Number: Repository [id number] Date:1750-45-86OJBIC SENIOR SUPPLEMENT [address] [address], [place] [address]YF: 10/09/2018 Tertiary NOT GIVENUNK [place] Insurance:SELF PAY [facility] Number: Effective Repository Date:2018-09-25 09/27/2018 LORI R Primary GRACIELA A [place] [id number] Insurance:MEDICARE JENKINSDOB: Community [place] PART A BPolicy Number: [id number], [place] [id number] Repository [address]Lig: (330) Date:2018-09-25 [phone] () 09/27/2018 Secondary GRACIELA A [place] Insurance:AETNA SR JENKINSDOB: Community SUPPLEMENT INSPolicy [id number] Hospital Number: Repository [id number] Date:3653-22-73BMGWO SENIOR SUPPLEMENT [address] [place] [address]WW: 09/27/2018 Tertiary NOT GIVENUNK [place] Insurance:SELF PAY [facility] Number: Effective Repository Date:2018-09-27 09/27/2018 LORI R Primary GRACIELA A [place] [id number] Insurance:MEDICARE JENKINSDOB: Community [place] PART A BPolicy Number: [id number], [place] [id number] Repository [address]Ftg: (330) Date:2018-09-25 [phone] () 09/27/2018 Secondary GRACIELA A [place] Insurance:AETNA SR JENKINSDOB: Community SUPPLEMENT INSPolicy [id number] Hospital Number: Repository [id number] Date:6285-14-61QODPG SENIOR SUPPLEMENT [address] [place] [address]VJ: 09/27/2018 Tertiary NOT GIVENUNK [place] Insurance:SELF PAY [facility] Number: Effective Repository Date:2018-09-25 09/25/2018 LORI R Primary GRACIELA A [place] [id number] Insurance:MEDICARE JENKINSDOB: Community [place] PART A BPolicy Number: [id number], [place] [id number] Repository [address]: (330) Date:2018-09-25 [phone] () 09/25/2018 Secondary GRACIELA A [place] Insurance:AETNA SR JENKINSDOB: Community SUPPLEMENT INSPolicy [id number] Hospital Number: Repository [id number] Date:9503-42-34CVTOJ SENIOR SUPPLEMENT [address] [place] [address]WL: 09/25/2018 Tertiary NOT GIVENUNK [place] Insurance:SELF PAY Community [facility] Number: Effective Repository Date:2018-09-25 09/25/2018 LORI R Primary GRACIELA A [place] [id number] Insurance:MEDICARE JENKINSDOB: Community [place] PART A BPolicy Number: [id number], [place] [id number] Repository [address]Uvh: (330) Date:2018-09-01 [phone] () 09/25/2018 Secondary GRACIELA A [place] Insurance:AETNA SR JENKINSDOB: Community SUPPLEMENT INSPolicy [id number] Hospital Number: Repository [id number] Date:0820-41-77QGHPP SENIOR SUPPLEMENT [address] [address]VVESZWTXA, [place] [address]JJ: 09/25/2018 Tertiary NOT GIVENUNK [place] Insurance:SELF PAY [facility] Number: Effective Repository Date:2018-09-25 09/25/2018 LORI R Primary GRACIELA A [place] [id number] Insurance:MEDICARE JENKINSDOB: Community [place] PART A BPolicy Number: [id number], [place] [id number] Repository [address]Xbx: 330) Date:2018-09-01 [phone] () 09/25/2018 Secondary GRACIELA A [place] Insurance:AETNA SR JENKINSDOB: Community SUPPLEMENT INSPolicy [id number] Hospital Number: Repository [id number] Date:3079-93-73VAFCE SENIOR SUPPLEMENT [address] [address]OPEWWKGSK, [place] [address]UF: 09/25/2018 Tertiary NOT GIVENUNK [place] Insurance:SELF PAY [facility] Number: Effective Repository Date:2018-09-25 09/20/2018 LORI R Primary GRACIELA A [place] [id number] Insurance:MEDICARE JENKINSDOB: Community [place] PART A BPolicy Number: [id number], [place] [id number] Repository [address]Wpq: 330) Date:2017-12-19 [phone] () 09/20/2018 Secondary GRACIELA A [place] Insurance:AETNA SR JENKINSDOB: Community SUPPLEMENT INSPolicy [id number] Hospital Number: Repository [id number] Date:4761-35-71SFVJT SENIOR SUPPLEMENT [address] [address]ZYKIGAAL, [place] [address]FB: 09/20/2018 Tertiary NOT GIVENUNK [place] Insurance:SELF PAY [facility] Number: Effective Repository Date:2018-09-18 09/07/2018 LORI R Primary GRACIELA A [place] [id number] Insurance:MEDICARE JENKINSDOB: Community [place] PART A BPolicy Number: [id number], [place] [id number] Repository [address]Hfr: (330) Date:2018-09-07 [phone] (HP) 09/07/2018 Secondary GRACIELA A [place] Insurance:AETNA SR JENKINSDOB: Community SUPPLEMENT INSPolicy [id number] Hospital Number: Repository [id number] Date:4356-76-04JAUUN SENIOR SUPPLEMENT [address] [place] [address]CG: 09/07/2018 Tertiary NOT GIVENUNK [place] Insurance:SELF PAY Community [facility] Number: Effective Repository Date:2018-09-07 09/04/2018 LORI R Primary GRACIELA A [place] [id number] Insurance:MEDICARE JENKINSDOB: [facility] [place] PART A BPolicy Number: [id number], [place] [id number] Repository [address]58[address]Fxz: (330) Date:2018-09-04 [phone] (HP) 09/04/2018 Secondary GRACIELA A [place] Insurance:AETNA SR JENKINSDOB: Community SUPPLEMENT INSPolicy [id number] Hospital Number: Repository [id number] Date:1850-92-07DZUMG SENIOR SUPPLEMENT [address] [place] [address]RG: 09/04/2018 Tertiary NOT GIVENUNK [place] Insurance:SELF PAY Community [facility] Number: Effective Repository Date:2018-09-04 08/24/2018 GRACIELA A Primary GRACIELA A [facility] JENKINSDOB: Insurance:MEDICARE A JENKINSDOB: Health System [id number] AND BPolicy Number: [id number] Repository [place] [id number] [place], [place] Date: [address]Fkl: (HP) 08/24/2018 Secondary GRACIELA A [facility] Insurance:AETNA JENKINSDOB: Health System MEDICARE [id number] Repository SUPPLEMENTPolicy Number: [id number] Date: 08/22/2018 LORI R Primary GRACIELA A [place] [id number] Insurance:MEDICARE JENKINSDOB: Community [place] PART A BPolicy Number: [id number], [place] [id number] Repository 025[address]Qxu: (330) Date:2017-12-19 [phone] (HP) 08/22/2018 Secondary GRACIELA A [place] Insurance:AETNA SR JENKINSDOB: Community SUPPLEMENT INSPolicy [id number] Hospital Number: Repository [id number] Date:0952-33-66ZQSTA SENIOR SUPPLEMENT [address] [place] [address]EV: 08/22/2018 Tertiary NOT GIVENUNK [place] Insurance:SELF PAY [facility] Number: Effective Repository Date:2018-08-21 08/09/2018 GRACIELA I Primary GRACIELA I [place] [id number] Insurance:CARESOURCEPo JENKINSDOB: Community [address] licy Number: [id number] [id number] Repository [address]Ugf: (330) Date:2018-07-25[phone] (HP) 4219ATTN: [place] [address]AJ: 08/09/2018 Secondary NOT GIVENUNK [place] Insurance:SELF PAY [facility] Number: Effective Repository Date:2018-08-09 08/08/2018 LORI R Primary GRACIELA A [place] [id number] Insurance:MEDICARE JENKINSDOB: Community [place] PART A BPolicy Number: [id number], [place] [id number] Repository [address]Cxd: (330) Date:2017-12-19 [phone] (HP) 08/08/2018 Secondary GRACIELA A [place] Insurance:AETNA SR JENKINSDOB: Community SUPPLEMENT INSPolicy [id number] Hospital Number: Repository [id number] Date:1849-90-87TVDCH SENIOR SUPPLEMENT [address] [address]DSXQCRJBL, [place] [address]BU: 08/08/2018 Tertiary NOT GIVENUNK [place] Insurance:SELF PAY [facility] Number: Effective Repository Date:2018-07-20 07/14/2018 LORI R Primary GRACIELA A [place] [id number] Insurance:MEDICARE JENKINSDOB: Community [place] PART A BPolicy Number: [id number], [place] [id number] Repository [address]Hay: 330) Date:2017-12-19 [phone] (HP) 07/14/2018 Secondary GRACIELA A [place] Insurance:AETNA SR JENKINSDOB: Community SUPPLEMENT INSPolicy [id number] Hospital Number: Repository [id number] Date:1622-60-27YBUZR SENIOR SUPPLEMENT [address] [address]QZTUINIVL, [place] [address]UQ: 07/14/2018 Tertiary NOT GIVENUNK [place] Insurance:SELF PAY [facility] Number: Effective Repository Date:2018-06-20 06/28/2018 LORI R Primary Insurance:SELF NOT GIVENUNK [place] [id number] PAY [facility] Number: Effective [place] Date:2018-06-27 Repository 42318Uvf: (HP) 06/28/2018 LORI R Primary GRACIELA A [place] [id number] Insurance:MEDICARE JENKINSDOB: Community [place] PART A BPolicy Number: [id number], [place] [id number] Repository 95398Swl: (330) Date:2018-06-27 [phone] (HP) 06/28/2018 Secondary GRACIELA A [place] Insurance:AETNA SR JENKINSDOB: Community SUPPLEMENT INSPolicy [id number] Hospital Number: Repository [id number] Date:5467-52-22ZIIUM SENIOR SUPPLEMENT [address] [place] [address]UW: 06/28/2018 Tertiary NOT GIVENUNK [place] Insurance:SELF [facility]Y [facility] Number: Effective Repository Date:2018-06-27 06/27/2018 LORI R Primary GRACIELA A [place] [id number] Insurance:MEDICARE JENKINSDOB: Community [place] PART A BPolicy Number: [id number], [place] [id number] Repository 39901Qvo: (330) Date:2018-06-27 [phone] (HP) 06/27/2018 Secondary GRACIELA A Rey Insurance:AETNA SR JENKINSDOB: Community SUPPLEMENT INSPolicy [id number] Hospital Number: Repository [id number] Date:9652-72-21BMNDU SENIOR SUPPLEMENT IN[address]O [address] [place] [address]KT: 06/27/2018 Tertiary NOT GIVENUNK [place] Insurance:SELF PAY [facility] Number: Effective Repository Date:2018-06-27 06/26/2018 LORI R Primary GRACIELA A Rey [id number] Insurance:MEDICARE JENKINSDOB: Community [place] PART A BPolicy Number: [id number], [place] [id number] Repository 23206Eag: (330) Date:2018-06-26 [phone] () 06/26/2018 Secondary GRACIELA A [place] Insurance:AETNA SR JENKINSDOB: Community SUPPLEMENT INSPolicy [id number] Hospital Number: Repository [id number] Date:6084-17-24AZHMD SENIOR SUPPLEMENT [address] [place] [address]ZJ: 06/26/2018 Tertiary NOT GIVENUNK [place] Insurance:SELF PAY [facility] Number: Effective Repository Date:2018-06-26 06/09/2018 LORI R Primary GRACIELA A Rey [id number] Insurance:MEDICARE JENKINSDOB: Community [place] PART A BPolicy Number: [id number], [place] [id number] Repository 67152Tyr: (330) Date:2017-12-19 [phone] (HP) 06/09/2018 Secondary GRACIELA A [place] Insurance:AETNA SR JENKINSDOB: Community SUPPLEMENT INSPolicy [id number] Hospital Number: Repository [id number] Date:4727-04-66ITQVE SENIOR SUPPLEMENT [address] [address]KGYDWMMTJ, [place] [address]GF: 06/09/2018 Tertiary NOT GIVENUNK Rey Insurance:SELF PAY [facility] Number: Effective Repository Date:2018-05-23 05/12/2018 LORI R Primary GRACIELA A Rey [id number] Insurance:MEDICARE JENKINSDOB: Community [place] PART A BPolicy Number: [id number], [place] [id number] Repository 86243Fdl: (168) Date:2017-12-19 [phone] (HP) 05/12/2018 Secondary GRACIELA A Rey Insurance:AETNA SR JENKINSDOB: Community SUPPLEMENT INSPolicy [id number] Hospital Number: Repository [id number] Date:0172-52-47BBSIV SENIOR SUPPLEMENT [address] [address]IALOWICBZ, [place] [address]VD: 05/12/2018 Tertiary NOT GIVENUNK Rey Insurance:SELF PAY [facility] Number: Effective Repository Date:2018-04-20 05/11/2018 LORI R Primary GRACIELA A Rey [id number] Insurance:MEDICARE JENKINSDOB: Community [place] PART A BPolicy Number: [id number], [place] [id number] Repository 860[address]Oco: 330) Date:2017-10-18 [phone] (HP) 05/11/2018 Secondary GRACIELA A Rey Insurance:AETNA SR JENKINSDOB: Community SUPPLEMENT INSPolicy [id number] Hospital Number: Repository [id number] Date:3249-50-01LHQUM SENIOR SUPPLEMENT [address]SP[address] [address]QNNBLYFCS, [place] [address]LC: 05/11/2018 Tertiary NOT GIVENUNK [place] Insurance:SELF PAY [facility] Number: Effective Repository Date:2018-05-11 04/25/2018 LORI R Primary GRACIELA A Rey [id number] Insurance:MEDICARE JENKINSDOB: Community [place] PART A BPolicy Number: [id number], [place] [id number] Repository 38701Kaa: (330) Date:2018-04-19 [phone] () 04/25/2018 Secondary GRACIELA A [place] Insurance:AETNA SR JENKINSDOB: Community SUPPLEMENT INSPolicy [id number] Hospital Number: Repository [id number] Date:7977-03-80TLWAV SENIOR SUPPLEMENT [address] [place] [address]RE: 04/25/2018 Tertiary NOT GIVENUNK Rey Insurance:SELF PAY [facility] Number: Effective Repository Date:2018-04-19 04/25/2018 LORI R Primary GRACIELA A [place] [id number] Insurance:MEDICARE JENKINSDOB: Community [place] PART A BPolicy Number: [id number], [place] [id number] Repository 80079Mrm: (330) Date:2018-04-19 [phone] () 04/25/2018 Secondary GRACIELA A [place] Insurance:AETNA SR JENKINSDOB: Community SUPPLEMENT INSPolicy [id number] Hospital Number: Repository [id number] Date:7425-59-40WFTRB SENIOR SUPPLEMENT INSP[address]IPZC[address] [place] [address]HE: 04/25/2018 Tertiary NOT GIVENUNK [place] Insurance:SELF PAY [facility] Number: Effective Repository Date:2018-04-25 04/24/2018 LORI R Primary GRACIELA A [place] [id number] Insurance:MEDICARE JENKINSDOB: Community [place] PART A BPolicy Number: [id number], [place] [id number] Repository 34961Dcd: (330) Date:2017-12-28 [phone] () 04/24/2018 Secondary GRACIELA A [place] Insurance:AETNA SR JENKINSDOB: Community SUPPLEMENT INSPolicy [id number] Hospital Number: Repository [id number] Date:1726-09-81WSSCC SENIOR SUPPLEMENT INSPO [address] [place] [address]GM: 04/24/2018 Tertiary NOT GIVENUNK Rey Insurance:SELF PAY [facility] Number: Effective Repository Date:2018-04-19 04/17/2018 LORI R Primary GRACIELA A [place] [id number] Insurance:MEDICARE JENKINSDOB: Community [place] PART A BPolicy Number: [id number], [place] [id number] Repository 48498Mru: (330) Date:2017-12-28 [phone] (HP) 04/17/2018 Secondary GRACIELA A Rey Insurance:AETNA SR JENKINSDOB: Community SUPPLEMENT INSPolicy [id number] Hospital Number: Repository [id number] Date:2249-40-07QASKY SENIOR SUPPLEMENT [address]SP[address]QF[address]YG[address] [place] [address]JE: 04/17/2018 Tertiary NOT GIVENUNK Rey Insurance:SELF PAY [facility] Number: Effective Repository Date:2018-03-19 04/17/2018 LORI R Primary GRACIELA A Rey [id number] Insurance:MEDICARE JENKINSDOB: Community [place] PART A BPolicy Number: [id number], [place] [id number] Repository 19265Suj: (330) Date:2018-04-10 [phone] () 04/17/2018 Secondary GRACIELA A Rey Insurance:AETNA SR JENKINSDOB: Community SUPPLEMENT INSPolicy [id number] Hospital Number: Repository [id number] Date:5175-14-77ZHIHW SENIOR SUPPLEMENT INSPO [address]NQYZTPYOO[address] [place] [address]QG: 04/17/2018 Tertiary NOT GIVENUNK Rey Insurance:SELF PAY [facility] Number: Effective Repository Date:2018-04-17 04/10/2018 LORI R Primary GRACIELA A Rey [id number] Insurance:MEDICARE JENKINSDOB: Community [place] PART A BPolicy Number: [id number], [place] [id number] Repository 70600Exj: (330) Date:2017-12-30 [phone] (HP) 04/10/2018 Secondary GRACIELA A [place] Insurance:AETNA SR JENKINSDOB: Community SUPPLEMENT INSPolicy [id number] Hospital Number: Repository [id number] Date:6787-78-39YDLAN SENIOR SUPPLEMENT [address]SPO [address]POVXMTGBB[address] [place] [address]VY: 04/10/2018 Tertiary NOT GIVENUNK [place] Insurance:SELF PAY [facility] Number: Effective Repository Date:2018-04-10 04/07/2018 LORI R Primary GRACIELA A [place] [id number] Insurance:MEDICARE JENKINSDOB: Community [place] PART A BPolicy Number: [id number], [place] [id number] Repository 56110Tza: 330) Date:2018-04-07 [phone] () 04/07/2018 Secondary GRACIELA A Rey Insurance:AETNA SR JENKINSDOB: Community SUPPLEMENT INSPolicy [id number] Hospital Number: Repository [id number] Date:8566-54-28UDRKP SENIOR SUPPLEMENT INSPO [address]JQNZLT[address] [place] [address]SP: 04/07/2018 Tertiary NOT GIVENUNK [place] Insurance:SELF PAY [facility] Number: Effective Repository Date:2018-04-07 04/07/2018 LORI R Primary GRACIELA A Rey [id number] Insurance:MEDICARE JENKINSDOB: Community [place] PART A BPolicy Number: [id number], [place] [id number] Repository 54514Vbt: (330) Date:2018-04-07 [phone] () 04/07/2018 Secondary GRACIELA A [place] Insurance:AETNA SR JENKINSDOB: Community SUPPLEMENT INSPolicy [id number] Hospital Number: Repository [id number] Date:7559-43-02IZYHX SENIOR SUPPLEMENT INSPO [address] [address]IDCJVYPRG, [place] [address]AY: 04/07/2018 Tertiary NOT GIVENUNK [place] Insurance:SELF PAY [facility] Number: Effective Repository Date:2018-04-07 03/31/2018 LORI R Primary GRACIELA A [place] [id number] Insurance:MEDICARE JENKINSDOB: Community [place] PART A BPolicy Number: [id number], [place] [id number] Repository 73072Loo: (330) Date:2017-12-19 [phone] () 03/31/2018 Secondary GRACIELA A [place] Insurance:AETNA SR JENKINSDOB: Community SUPPLEMENT INSPolicy [id number] Hospital Number: Repository [id number] Date:9085-71-54NTMSQ SENIOR SUPPLEMENT INSPO [address]PFQBNUEOO[address] [place] [address]ME: 03/31/2018 Tertiary NOT GIVENUNK [place] Insurance:SELF PAY [facility] Number: Effective Repository Date:2018-03-17 03/31/2018 LORI R Primary GRACIELA A [place] [id number] Insurance:MEDICARE JENKINSDOB: Community [place] PART A BPolicy Number: [id number], [place] [id number] Repository 71524Irg: (330) Date:2018-03-31 [phone] () 03/31/2018 Secondary GRACIELA A [place] Insurance:AETNA SR JENKINSDOB: Community SUPPLEMENT INSPolicy [id number] Hospital Number: Repository [id number] Date:6037-66-97NSTVV SENIOR SUPPLEMENT [address]O [address] [place] [address]EL: 03/31/2018 Tertiary NOT GIVENUNK [place] Insurance:SELF PAY [facility] Number: Effective Repository Date:2018-03-31 03/30/2018 LORI R Primary GRACIELA A [place] [id number] Insurance:MEDICARE JENKINSDOB: Community [place] PART A BPolicy Number: [id number], [place] [id number] Repository 83608Lvx: (330) Date:2018-03-24 [phone] () 03/30/2018 Secondary GRACIELA A [place] Insurance:AETNA SR JENKINSDOB: Community SUPPLEMENT INSPolicy [id number] Hospital Number: Repository [id number] Date:8759-63-88KJNWM SENIOR SUPPLEMENT [address] [address]NFLRZRPNM, [place] [address]FQ: 03/30/2018 Tertiary NOT GIVENUNK [place] Insurance:SELF PAY [facility] Number: Effective Repository Date:2018-03-24 03/30/2018 LORI R Primary GRACIELA A [place] [id number] Insurance:MEDICARE JENKINSDOB: Community [place] PART A BPolicy Number: [id number], [place] [id number] Repository 82020Puu: 330) Date:2018-03-24 [phone] () 03/30/2018 Secondary GRACIELA A [place] Insurance:AETNA SR JENKINSDOB: Community SUPPLEMENT INSPolicy [id number] Hospital Number: Repository [id number] Date:7827-92-96ILALG SENIOR SUPPLEMENT [address]O [address]CGKZLCFY[address] [place] [address]HY: 03/30/2018 Tertiary NOT GIVENUNK [place] Insurance:SELF PAY [facility] Number: Effective Repository Date:2018-03-30 03/20/2018 LORI R Primary GRACIELA A Rey [id number] Insurance:MEDICARE JENKINSDOB: Community [place]ON[place]D PART A BPolicy Number: [id number], [place] [id number] Repository 72760Psp: (330) Date:2018-03-20 [phone] () 03/20/2018 Secondary GRACIELA A [place] Insurance:AETNA SR JENKINSDOB: Community SUPPLEMENT INSPolicy [id number] Hospital Number: Repository [id number] Date:6994-38-18LOHPU SENIOR SUPPLEMENT [address] [address]KUWQNBAXN, [place] [address]XP: 03/20/2018 Tertiary NOT GIVENUNK [place] Insurance:SELF PAY [facility] Number: Effective Repository Date:2018-03-20 03/20/2018 LORI R Primary GRACIELA A Rey [id number] Insurance:MEDICARE JENKINSDOB: Community [place]ON[place]D PART A BPolicy Number: [id number], [place] [id number] Repository 39055Dvr: (330) Date:2018-03-15 [phone] (HP) 03/20/2018 Secondary GRACIELA A Rey Insurance:AETNA SR JENKINSDOB: Community SUPPLEMENT INSPolicy [id number] Hospital Number: Repository [id number] Date:1269-03-34EIYLZ SENIOR SUPPLEMENT [address]FSUIIXVYD[address] [place] [address]YS: 03/20/2018 Tertiary NOT GIVENUNK [place] Insurance:SELF PAY [facility] Number: Effective Repository Date:2018-03-20 03/15/2018 LORI R Primary GRACIELA A [place] [id number] Insurance:MEDICARE JENKINSDOB: Community M[place]ON[place]D PART A BPolicy Number: [id number], [place] [id number] Repository 69273Lww: (330) Date:2017-12-19 [phone] (HP) 03/15/2018 Secondary GRACIELA A Rey Insurance:AETNA SR JENKINSDOB: Community SUPPLEMENT INSPolicy [id number] Hospital Number: Repository [id number] Date:3542-52-21WRBAJ SENIOR SUPPLEMENT [address] [place] [address]QU: 03/15/2018 Tertiary NOT GIVENUNK [place] Insurance:SELF PAY [facility] Number: Effective Repository Date:2018-02-16 03/15/2018 LORI R Primary GRACIELA A [place] [id number] Insurance:MEDICARE JENKINSDOB: Community [place]ON[place]D PART A BPolicy Number: [id number], [place] [id number] Repository 64565Zqm: (330) Date:2018-03-15 [phone] (HP) 03/15/2018 Secondary GRACIELA A Rey Insurance:AETNA SR JENKINSDOB: Community SUPPLEMENT INSPolicy [id number] Hospital Number: Repository [id number] Date:2441-96-05PNJWZ SENIOR SUPPLEMENT [address] [address]IIRYNOXZH, [place] [address]UM: 03/15/2018 Tertiary NOT GIVENUNK [place] Insurance:SELF PAY [facility] Number: Effective Repository Date:2018-03-15 03/15/2018 LORI R Primary GRACIELA A [place] [id number] Insurance:MEDICARE JENKINSDOB: Community M[place]ONALD PART A BPolicy Number: [id number], [place] [id number] Repository 72581Snd: (330) Date:2017-12-28 [phone] (HP) 03/15/2018 Secondary GRACIELA A [place] Insurance:AETNA SR JENKINSDOB: Community SUPPLEMENT INSPolicy [id number] Hospital Number: Repository [id number] Date:6673-14-91CJXKH SENIOR SUPPLEMENT [address] [address]UETDOQBDA, [place] [address]IR: 03/15/2018 Tertiary NOT GIVENUNK [place] Insurance:SELF PAY [facility] Number: Effective Repository Date:2018-02-17 02/16/2018 LORI R Primary GRACIELA A [place] [id number] Insurance:MEDICARE JENKINSDOB: Community MCDONALD PART A BPolicy Number: [id number], [place] [id number] Repository 74281Gyz: (330) Date:2018-02-16 [phone] (HP) 02/16/2018 Secondary GRACIELA A [place] Insurance:AETNA SR JENKINSDOB: Community SUPPLEMENT INSPolicy [id number] Hospital Number: Repository [id number] Date:6126-95-60QTMNQ SENIOR SUPPLEMENT [address]TS[address] [place] [address]LP: 02/16/2018 Tertiary NOT GIVENUNK [place] Insurance:SELF PAY [facility] Number: Effective Repository Date:2018-02-16 02/15/2018 LORI R Primary GRACIELA A [place] [id number] Insurance:MEDICARE JENKINSDOB: Community M[place]ON[place]D PART A BPolicy Number: [id number], [place] [id number] Repository 42854Pgu: (330) Date:2017-12-28 [phone] (HP) 02/15/2018 Secondary GRACIELA A [place] Insurance:AETNA SR JENKINSDOB: Community SUPPLEMENT INSPolicy [id number] Hospital Number: Repository [id number] Date:0438-15-66KXLEA SENIOR SUPPLEMENT [address]JP[address] [place] [address]UR: 02/15/2018 Tertiary NOT GIVENUNK [place] Insurance:SELF PAY [facility] Number: Effective Repository Date:2018-01-17 02/15/2018 LORI R Primary GRACIELA A Ery [id number] Insurance:MEDICARE JENKINSDOB: Community [place]ON[place]D PART A BPolicy Number: [id number], [place] [id number] Repository 11824Oez: (330) Date:2017-12-19 [phone] () 02/15/2018 Secondary GRACIELA A [place] Insurance:AETNA SR JENKINSDOB: Community SUPPLEMENT INSPolicy [id number] Hospital Number: Repository [id number] Date:8265-43-79OULVR SENIOR SUPPLEMENT [address]SP[address] [address]HMCYXJZHN, [place] [address]YO: 02/15/2018 Tertiary NOT GIVENUNK [place] Insurance:SELF PAY [facility] Number: Effective Repository Date:2018-01-17 02/06/2018 LORI R Primary GRACIELA A [place] [id number] Insurance:MEDICARE JENKINSDOB: Community M[place]ON[place]D PART A BPolicy Number: [id number], [place] [id number] Repository 32798Uys: (330) Date:2018-02-06 [phone] (HP) 02/06/2018 Secondary GRACIELA A [place] Insurance:AETNA SR JENKINSDOB: Community SUPPLEMENT INSPolicy [id number] Hospital Number: Repository [id number] Date:2887-92-12RLROV SENIOR SUPPLEMENT [address] [address]ACFKZOVKS, [place] [address]KJ: 02/06/2018 Tertiary NOT GIVENUNK [place] Insurance:SELF PAY [facility] Number: Effective Repository Date:2018-02-06 01/16/2018 LORI R Primary GRACIELA A Rey [id number] Insurance:MEDICARE JENKINSDOB: Community M[place]ON[place]D PART A BPolicy Number: [id number], [place] [id number] Repository 71154Gwc: (330) Date:2017-12-28 [phone] () 01/16/2018 Secondary GRACIELA A Rey Insurance:AETNA SR JENKINSDOB: Community SUPPLEMENT INSPolicy [id number] Hospital Number: Repository [id number] Date:6946-98-42IZLMM SENIOR SUPPLEMENT [address] [place] [address]AS: 01/16/2018 Tertiary NOT GIVENUNK [place] Insurance:SELF PAY [facility] Number: Effective Repository Date:2017-12-28 01/16/2018 LORI R Primary GRACIELA A [place] [id number] Insurance:MEDICARE JENKINSDOB: Community MCDONALD PART A BPolicy Number: [id number], [place] [id number] Repository 81396Uym: (330) Date:2017-12-19 [phone] () 01/16/2018 Secondary GRACIELA A [place] Insurance:AETNA SR JENKINSDOB: Community SUPPLEMENT INSPolicy [id number] Hospital Number: Repository [id number] Date:7081-71-35HOGQX SENIOR SUPPLEMENT [address] [place] [address]UP: 01/16/2018 Tertiary NOT GIVENUNK [place] Insurance:SELF PAY [facility] Number: Effective Repository Date:2017-12-19 12/30/2017 LORI R Primary GRACIELA A Rey [id number] Insurance:MEDICARE JENKINSDOB: Community M[place]ON[place]D PART A BPolicy Number: [id number], [place] [id number] Repository 21679Wpx: (330) Date:2017-12-07 [phone] (HP) 12/30/2017 Secondary GRACIELA A [place] Insurance:AETNA SR JENKINSDOB: Community SUPPLEMENT INSPolicy [id number] Hospital Number: Repository [id number] Date:4107-61-23HEDBH SENIOR SUPPLEMENT [address] [address]XPWWYESZH, [place] [address]DQ: 12/30/2017 Tertiary NOT GIVENUNK [place] Insurance:SELF PAY [facility] Number: Effective Repository Date:2017-12-30 12/29/2017 GRACIELA A Primary GRACIELA A [facility] JENKINSDOB: Insurance:MEDICARE A JENKINSDOB: Health System AND BPolicy Number: [id number] [facility] [id number] [place], [place] Date: [address]Vlw: () 12/29/2017 Secondary GRACIELA A [facility] Insurance:AETNA LULUKINSDOB: Health System MEDICARE [id number] Repository SUPPLEMENTPolicy Number: [id number] Date: 12/29/2017 GRACIELA A Primary GRACIELA A [facility] JENKINSDOB: Insurance:MEDICARE A JENKINSDOB: Health System AND BPolicy Number: [id number] Repository [place] [id number] [place], [place] Date: [address]Frz: () 12/29/2017 Secondary GRACIELA A [facility] Insurance:AETNA LULUKINSDOB: Health System MEDICARE [id number] Repository SUPPLEMENTPolicy Number: [id number] Date: 12/28/2017 LORI Campbell Primary GRACIELA A Rey [id number] Insurance:MEDICARE JENKINSDOB: [facility] MCDONALD PART A BPolicy Number: [id number] [place], [place] [id number] Repository 36703Mxz: 330) Date:2017-12-14 [phone] () 12/28/2017 Secondary GRACIELA A [place] Insurance:AETNA SR JENKINSDOB: Community SUPPLEMENT INSPolicy [id number] Hospital Number: Repository [id number] Date:1404-76-81TCHAK SENIOR SUPPLEMENT [address] [address]OVTHXBZGC, [place] [address]PV: 12/28/2017 Tertiary NOT GIVENUNK [place] Insurance:SELF PAY [facility] Number: Effective Repository Date:2017-12-14 12/23/2017 LORI R Primary GRACIELA A Rey [id number] Insurance:MEDICARE JENKINSDOB: Community M[place]ONALD PART A BPolicy Number: [id number] [id number] Repository [address]Vyc: (308) Date:2017-12-23 [phone] (HP) 12/23/2017 Secondary GRACIELA A Rey Insurance:AETNA SR JENKINSDOB: Community SUPPLEMENT INSPolicy [id number] Hospital Number: Repository [id number] Date:[id number] SENIOR SUPPLEMENT [address] [address]VB[place], [place] [address]OK: 12/23/2017 Tertiary NOT GIVENUNK [place] Insurance:SELF PAY [facility] Number: Effective Repository Date:2017-12-23 12/13/2017 LORI R Primary GRACIELA A Rey [id number] Insurance:MEDICARE JENKINSDOB: Community [place] PART A BPolicy Number: [id number], [place] [id number] Repository [address]Dyz: 330) Date:2017-12-13 [phone] (HP) 12/13/2017 Secondary GRACIELA A Rey Insurance:AETNA SR JENKINSDOB: Community SUPPLEMENT INSPolicy [id number] Hospital Number: Repository [id number] Date:[id number] SENIOR SUPPLEMENT [address] [address]CV[place]EN, [place] [address]EG: 12/13/2017 Tertiary NOT GIVENUNK [place] Insurance:SELF PAY [facility] Number: Effective Repository Date:2017-12-13 12/13/2017 LORI R Primary GRACIELA A [facility] [id number] Insurance:MEDICARE JENKINSDOB: Community [place] PART A BPolicy Number: [id number], [place] [id number] Repository [address]Con: (330) Date:2017-12-09 [phone] (HP) 12/13/2017 Secondary GRACIELA A Rey Insurance:AETNA SR JENKINSDOB: Community SUPPLEMENT INSPolicy [id number] Hospital Number: Repository [id number] Date:[id number] SENIOR SUPPLEMENT [id number] [place] [address]AW: 12/13/2017 Tertiary NOT GIVENUNK [place] Insurance:SELF [facility]Y [facility]: Effective Repository Date:2017-12-13 12/12/2017 LORI R Primary GRACIELA A [facility] [id number] Insurance:MEDICARE JENKINSDOB: Community [place] PART A BPolicy Number: [id number], [place] [id number] Repository [address]Nkf: (330) Date:2017-12-12 [phone] (HP) 12/12/2017 Secondary GRACIELA A Rey Insurance:AETNA SR JENKINSDOB: Community SUPPLEMENT INSPolicy [id number] Hospital Number: Repository [id number] Date:[id number] SENIOR SUPPLEMENT [address] [address]HKQEZRID[place], [place] [address]MI: 12/12/2017 Tertiary NOT GIVENUNK [place] Insurance:SELF PAY [facility] Number: Effective Repository Date:2017-12-12 12/12/2017 LORI R Primary GRACIELA A [place] [id number] Insurance:MEDICARE JENKINSDOB: Community [place] PART A BPolicy Number: [id number] [id number] Repository [address]Beo: (330) Date:2017-12-12 [phone] (HP) 12/12/2017 Secondary GRACIELA A [place] Insurance:AETNA SR JENKINSDOB: Community SUPPLEMENT INSPolicy [id number] Hospital Number: Repository [id number] Date:2445-29-84QLSJM SENIOR SUPPLEMENT [address] [address], [place] [address]UX: 12/12/2017 Tertiary NOT GIVENUNK Rey Insurance:SELF PAY [facility] Number: Effective Repository Date:2017-12-12 12/09/2017 LORI R Primary GRACIELA A [place] [id number] Insurance:MEDICARE JENKINSDOB: [facility] [place] PART A BPolicy Number: [id number] [place], [place] [id number] Repository [address]Cyc: (757) Date:2017-12-09 [phone] (HP) 12/09/2017 Secondary GRACIELA A Rey Insurance:AETNA SR JENKINSDOB: Community SUPPLEMENT INSPolicy [id number] Hospital Number: Repository [id number] Date:3338-55-36KRUHC SENIOR SUPPLEMENT [address] [address]MJ[place], [place] [address]MV: 12/09/2017 Tertiary NOT GIVENUNK [place] Insurance:SELF PAY [facility] Number: Effective Repository Date:2017-12-09 12/09/2017 GRACIELA A Primary GRACIELA A [facility] JENKINSDOB: Insurance:MEDICARE A JENKINSDOB: Health System AND BPolicy Number: [id number] [facility] [id number] [place], [place] Date: [address]Pzv: (HP) 12/09/2017 Secondary GRACIELA A [facility] Insurance:AETNA YELENADOB: Health System MEDICARE [id number] Repository SUPPLEMENTPolicy Number: [id number] Date: 12/09/2017 GRACIELA A Primary GRACIELA A [facility] JENKINSDOB: Insurance:MEDICARE A JENKINSDOB: Health System AND BPolicy Number: [id number] [facility] [id number] [place], [place] Date: [address]Wis: (HP) 12/09/2017 Secondary GRACIELA A [facility] Insurance:AETNA YELENADOB: Health System MEDICARE [id number] Repository SUPPLEMENTPolicy Number: [id number] Date: 12/08/2017 LORI R Primary GRACIELA A [place] [id number] Insurance:AETNA SR JENKINSDOB: [facility] [place] SUPPLEMENT INSPolicy [id number] Number: Repository [address]Zjy: 330 [id number] [phone] (HP) Date:[id number] SENIOR SUPPLEMENT [address] [place] [address]SA: 12/08/2017 Secondary GRACIELA A [place] Insurance:MEDICARE JENKINSDOB: [facility] PART A BPolicy Number: [id number] Hospital [id number] Repository Date:2017-08-29 12/08/2017 Tertiary NOT GIVENUNK [place] Insurance:SELF PAY [facility] Number: Effective Repository Date:2017-08-29 11/28/2017 GRACIELA A Primary GRACIELA A [facility] JENKINSDOB: Insurance:MEDICARE A JENKINSDOB: Health System AND BPolicy Number: [id number] Repository [place] [id number] [place], [place] Date: [address]Txg: (HP) 11/28/2017 Secondary GRACIELA A [facility] Insurance:AETNA LULUKINSDOB: Health System MEDICARE [id number] Repository SUPPLEMENTPolicy Number: [id number] Date: 11/23/2017 GRACIELA A Primary GRACEILA A [facility] JENKINSDOB: Insurance:MEDICARE A JENKINSDOB: Health System AND BPolicy Number: [id number] Repository [place] [id number] [facility] [place] Date: [address]Mvt: (HP) 11/23/2017 Secondary GRACIELA A [facility] Insurance:AETNA LULUKINSDOB: Health System MEDICARE [id number] Repository SUPPLEMENTPolicy Number: [id number] Date: 11/23/2017 GRACIELA A Primary GRACIELA A [facility] JENKINSDOB: Insurance:MEDICARE A JENKINSDOB: Health System AND BPolicy Number: [id number] Repository [place] [id number] [place] Date: [address]Omk: (HP) 11/23/2017 Secondary GRACIELA A [facility] Insurance:AETNA YELENADOB: Health System MEDICARE [id number] Repository SUPPLEMENTPolicy Number: [id number] Date: 11/23/2017 GRACIELA A Primary GRACIELA A [facility] JENKINSDOB: Insurance:MEDICARE A [facility]: [facility] AND BPolicy Number: [id number] Repository [place] [id number] [place] Date: [address]Dnl: (HP) 11/23/2017 Secondary GRACIELA A [facility] Insurance:AETNA YELENADOB: Health System MEDICARE [id number] Repository SUPPLEMENTPolicy Number: [id number] Date: 11/23/2017 GRACIELA A Primary GRACIELA A [facility] JENKINSDOB: Insurance:MEDICARE A [facility]: [facility] AND BPolicy Number: [id number] Repository [place] [id number] [place] Date: [address]Aau: (HP) 11/23/2017 Secondary GRACIELA A [facility] Insurance:AETNA YELENADOB: Health System MEDICARE [id number] Repository SUPPLEMENTPolicy Number: [id number] Date: 11/23/2017 GRACIELA A Primary GRACIELA A [facility] JENKINSDOB: Insurance:MEDICARE A YELENADOB: Health System AND BPolicy Number: [id number] Repository [place] [id number] [place] Date: [address]Roy: (HP) 11/23/2017 Secondary GRACIELA A [facility] Insurance:AETNA YELENADOB: Health System MEDICARE [id number] Repository SUPPLEMENTPolicy Number: [id number] Date: 11/21/2017 GRACIELA A Primary GRACIELA A [facility] JENKINSDOB: Insurance:MEDICARE A JENKINSDOB: Health System AND BPolicy Number: [id number] Repository [place] [id number] [place], [place] Date: [address]Bff: (HP) 11/21/2017 Secondary GRACIELA A [facility] Insurance:AETNA JENKINSDOB: Health System MEDICARE [id number] Repository SUPPLEMENTPolicy Number: [id number] Date: 11/18/2017 LORI R Primary GRACIELA A [place] [id number] Insurance:MEDICARE JENKINSB: [facility] [place] PART A BPolicy Number: [id number] [place], [place] [id number] Repository [address]Wqi: (496) Date:2017-11-18 [phone] (HP) 11/18/2017 Secondary GRACIELA A [place] Insurance:AETNA SR JENKINSDOB: Community SUPPLEMENT INSPolicy [id number] Hospital Number: Repository [id number] Date:0323-71-05YVSVP SENIOR SUPPLEMENT IN[address] [place] [address]LY: 11/18/2017 Tertiary NOT GIVENUNK [place] Insurance:SELF PAY [facility] Number: Effective Repository Date:2017-11-18 11/16/2017 GRACIELA A Primary GRACIELA A [facility] JENKINSDOB: Insurance:MEDICARE A JENKINSDOB: Health System AND BPolicy Number: [id number] Repository [place] [id number] [place], [place] Date: [address]Bem: (HP) 11/16/2017 Secondary GRACIELA A [facility] Insurance:AETNA JENKINSDOB: Health System MEDICARE [id number] Repository SUPPLEMENTPolicy Number: [id number] Date: 10/26/2017 LORI R Primary GRACIELA A [place] [id number] Insurance:MEDICARE JENKINSDOB: Community [place] PART A BPolicy Number: [id number], [place] [id number] Repository [address]Yrw: (330) Date:2017-10-18 [phone] (HP) 10/26/2017 Secondary GRACIELA A [place] Insurance:AETNA SR JENKINSDOB: Community SUPPLEMENT INSPolicy [id number] Hospital Number: Repository [id number] Date:2440-84-65NJUIB SENIOR SUPPLEMENT [address] [place] [address]FD: 10/26/2017 Tertiary NOT GIVENUNK [place] Insurance:SELF PAY [facility] Number: Effective Repository Date:2017-10-18 10/26/2017 LORI R Primary GRACIELA A [place] [id number] Insurance:MEDICARE JENKINSDOB: Community [place] PART A BPolicy Number: [id number], [place] [id number] Repository [address]Ebp: (330) Date:2017-10-18 [phone] (HP) 10/26/2017 Secondary GRACIELA A [place] Insurance:AETNA SR JENKINSDOB: Community SUPPLEMENT INSPolicy [id number] Hospital Number: Repository [id number] Date:3772-99-03NSPUR SENIOR SUPPLEMENT IN[address]O [address] [place] [address]RO: 10/26/2017 Tertiary NOT GIVENUNK [place] Insurance:SELF PAY [facility] Number: Effective Repository Date:2017-10-26 10/18/2017 GRACIELA A Primary GRACIELA A [place] [id number] Insurance:MEDICARE JENKINSDOB: Community [place] PART A BPolicy Number: [id number], [place] [id number] Repository [address]Uos: (330) Date:2017-10-06 [phone] (HP) 10/18/2017 Secondary GRACIELA A [place] Insurance:AETNA SR JENKINSDOB: Community SUPPLEMENT INSPolicy [id number] Hospital Number: Repository [id number] Date:6369-45-99OHBPB SENIOR SUPPLEMENT [address] [address], [place] [address]GY: 10/18/2017 Tertiary NOT GIVENUNK [place] Insurance:SELF PAY [facility] Number: Effective Repository Date:2017-10-06
== END 2018-10-10 08:20 | disposition home or self-care (01) ==
LOC: CLSP 10:26 → PCU 14:39
PROVIDERS: Family Provider Family Medicine; PCP Family Medicine; Referring Provider Internal Medicine Cardiovascular Disease; Visit Provider Internal Medicine Cardiovascular Disease
DX: I49.5 Sick sinus syndrome (principal); I48.0 Paroxysmal atrial fibrillation; R09.89 Other specified symptoms and signs involving the circulatory and respiratory systems; Z95.2 Presence of prosthetic heart valve; I35.0 Nonrheumatic aortic (valve) stenosis; I27.21 Secondary pulmonary arterial hypertension; M35.00 Sjogren syndrome, unspecified; M06.9 Rheumatoid arthritis, unspecified; E78.5 Hyperlipidemia, unspecified; E11.9 Type 2 diabetes mellitus without complications; E03.9 Hypothyroidism, unspecified; G47.33 Obstructive sleep apnea (adult) (pediatric); E66.9 Obesity, unspecified; Z68.42 Body mass index [BMI] 45.0-49.9, adult; Z79.82 Long term (current) use of aspirin; Z79.01 Long term (current)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; Z79.899 Other long term (current) drug therapy
CPT/HCPCS: 33208; 36416; 71046; 85610; 99152; 99153; J7040; J7050; C1894

== ENCOUNTER → 2018-10-16 14:16 | Outpatient (CLI) | payer MEDICARE, OTHER, SELFPAY ==
[2018-10-16 13:50] VITALS: BMI 44.8
[2018-10-16 16:06] LABS: Erythrocyte Sedimentation Rate 18 mm/hr (0-30)
[2018-10-16 16:08] LABS: Absolute Lymphocyte Count 1.91 X10^3/ul (0.83-4.51); Absolute Neutrophil Count 3.9 X10^3/uL (2.0-7.7); Basophil# 0.04 X10^3/uL; Basophil% 0.6 % (0-1); Eosinophil# 0.06 X10^3/uL; Hematocrit 36.6 % (37-47); Hemoglobin 11.6 g/dl (12.0-15.0); Lymphocyte # 1.91 X10^3/ul (4.0); Lymphocyte % 30.8 % (19-41); Mean Corp Hgb Conc 31.7 g/gl (32-36); Mean Corpuscular Hgb 31.5 pg (27.0-32.0); Mean Corpuscular Volume 99.5 fL (81-99); Mean Platelet Vol. 10.3 fl (6.2-12.0); Monocyte# 0.26 X10^3/uL; Monocyte% 4.2 % (0-10); Neutrophil # 3.93 X10^3/uL (2.7-7.7); Neutrophil % 63.2 % (47-70); Platelet Count 217 K/mm3 (150-450); RBC Distribution Width CV 14.3 % (11.6-14.6); Red Blood Count 3.68 M/mm3 (4.2-5.4); White Blood Count 6.2 K/mm3 (4.4-11.0)
[2018-10-16 16:14] LABS: POSITIVE COUNT NO; POSITIVE DIFFERENTIAL NO; POSITIVE MORPHOLOGY NO
[2018-10-16 16:27] LABS: AST(SGOT) 21 U/L (15-37); Alanine Aminotransfer ALT/SGPT 20 U/L (13-56); Albumin, Serum 3.5 g/dL (3.2-5.0); BUN 24 mg/dL (7-18); Creatinine, Serum 0.97 mg/dL (0.55-1.02); EST Glomerular Filtration Rate 61 mL/min (>60); Est Glom Filt Rate - Afr Amer 74 mL/min (>60)
== END ==
PROVIDERS: Family Provider Family Medicine; PCP Family Medicine
DX: M06.9 Rheumatoid arthritis, unspecified (principal)
CPT/HCPCS: 36415; 82040; 82565; 84450; 84460; 84520; 85025; 85652; 86140

== ENCOUNTER 2018-11-09 14:15 | Outpatient (RCR) | payer MEDICARE, OTHER, SELFPAY ==
[2018-10-16 13:50] VITALS: BMI 44.8
[2018-10-23 11:18] LABS: International Normalized Ratio 1.7
[2018-10-30 13:02] LABS: International Normalized Ratio 1.8; Prothrombin Time (Protime)PT. 20.9 SECONDS (11.7-14.9)
[2018-11-09 17:32] LABS: International Normalized Ratio 2.4; Prothrombin Time (Protime)PT. 25.9 SECONDS (11.7-14.9)
== END 2018-11-16 13:48 | disposition home or self-care (01) ==
LOC: LAB 14:15
PROVIDERS: Family Provider Family Medicine; PCP Family Medicine; Referring Provider Internal Medicine Cardiovascular Disease; Visit Provider Internal Medicine Cardiovascular Disease
DX: I48.91 Unspecified atrial fibrillation (principal); I97.89 Other postprocedural complications and disorders of the circulatory system, not elsewhere classified
CPT/HCPCS: 36415; 85610

== ENCOUNTER 2018-12-07 12:28 | Outpatient (RCR) | payer MEDICARE, OTHER, SELFPAY ==
[2018-10-16 13:50] VITALS: BMI 44.8
[2018-11-24 14:44] LABS: International Normalized Ratio 1.9; Prothrombin Time (Protime)PT. 21.7 SECONDS (11.7-14.9)
[2018-12-07 13:33] LABS: International Normalized Ratio 2.3; Prothrombin Time (Protime)PT. 25.4 SECONDS (11.7-14.9)
== END 2018-12-07 13:00 | disposition home or self-care (01) ==
LOC: LAB 12:28
PROVIDERS: Family Provider Family Medicine; PCP Family Medicine; Referring Provider Internal Medicine Cardiovascular Disease; Visit Provider Internal Medicine Cardiovascular Disease
DX: I48.91 Unspecified atrial fibrillation (principal); I97.89 Other postprocedural complications and disorders of the circulatory system, not elsewhere classified
CPT/HCPCS: 36415; 85610

== ENCOUNTER 2018-12-27 11:56 | Outpatient (RCR) | payer MEDICARE, OTHER, SELFPAY ==
[2018-10-16 13:50] VITALS: BMI 44.8
[2018-12-21 10:57] VITALS: BMI 45.8
[2018-12-27 12:40] LABS: International Normalized Ratio 2.5; Prothrombin Time (Protime)PT. 27.3 SECONDS (11.7-14.9)
== END 2019-01-16 16:00 | disposition home or self-care (01) ==
LOC: LAB 11:56
PROVIDERS: Family Provider Family Medicine; PCP Family Medicine; Referring Provider Internal Medicine Cardiovascular Disease; Visit Provider Internal Medicine Cardiovascular Disease
DX: I48.0 Paroxysmal atrial fibrillation (principal); Z79.01 Long term (current)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
CPT/HCPCS: 36415; 85610

== ENCOUNTER → 2019-01-08 14:45 | Outpatient (CLI) | payer MEDICARE, OTHER, SELFPAY ==
[2018-12-21 10:57] VITALS: BMI 45.8
[2019-01-08 15:46] LABS: Absolute Lymphocyte Count 1.63 X10^3/ul (0.83-4.51); Basophil# 0.03 X10^3/uL; Basophil% 0.5 % (0-1); Eosinophil# 0.05 X10^3/uL; Eosinophils% 0.8 % (0-5); Hematocrit 38.7 % (37-47); Hemoglobin 12.3 g/dl (12.0-15.0); Lymphocyte # 1.63 X10^3/ul (4.0); Lymphocyte % 26.6 % (19-41); Mean Corp Hgb Conc 31.8 g/gl (32-36); Mean Corpuscular Hgb 31.2 pg (27.0-32.0); Mean Corpuscular Volume 98.2 fL (81-99); Mean Platelet Vol. 10.1 fl (6.2-12.0); Monocyte# 0.37 X10^3/uL; Neutrophil # 4.03 X10^3/uL (2.7-7.7); Neutrophil % 65.9 % (47-70); Platelet Count 208 K/mm3 (150-450); RBC Distribution Width CV 13.8 % (11.6-14.6); RBC Distribution Width SD 49.6 fl (35.1-43.9); Red Blood Count 3.94 M/mm3 (4.2-5.4); White Blood Count 6.1 K/mm3 (4.4-11.0)
[2019-01-08 15:50] LABS: POSITIVE COUNT NO; POSITIVE DIFFERENTIAL NO; POSITIVE MORPHOLOGY NO
[2019-01-08 16:01] LABS: AST(SGOT) 25 U/L (15-37); Alanine Aminotransfer ALT/SGPT 23 U/L (13-56); Albumin, Serum 3.7 g/dL (3.2-5.0); BUN 20 mg/dL (7-18); CRP 2.91 mg/L (0.0-3.0); Creatinine, Serum 1.22 mg/dL (0.55-1.02); EST Glomerular Filtration Rate 47 mL/min (>60); Est Glom Filt Rate - Afr Amer 56 mL/min (>60)
[2019-01-08 16:06] LABS: Erythrocyte Sedimentation Rate 12 mm/hr (0-30)
== END ==
PROVIDERS: Family Provider Family Medicine; PCP Family Medicine; Referring Provider Internal Medicine; Visit Provider Internal Medicine
DX: M06.9 Rheumatoid arthritis, unspecified (principal)
CPT/HCPCS: 36415; 82040; 82565; 84450; 84460; 84520; 85025; 85652; 86140

== ENCOUNTER → 2019-01-26 10:14 | Outpatient (CLI) | payer MEDICARE, OTHER, SELFPAY ==
[2018-12-21 10:57] VITALS: BMI 45.8
--- NOTE | 2019-01-26 10:25 | CT_ITS ---
STUDY: CT CHEST WITH CONTRAST REASON FOR EXAM: Female, 68 years old. Sternal chest pain. History of prior prosthetic valve replacement. RADIATION DOSAGE (If Supplied By Facility): CTDIvol = ( 18.30 ) mGy, DLP = ( 717.67 ) mGycm TECHNIQUE: Transaxial imaging was performed following intravenous administration of 100mL IV Isovue 300. Multiplanar coronal and sagittal images were reformatted. Individualized dose optimization techniques were used for this CT. COMPARISON: None. FINDINGS: A left-sided pacemaker is seen. There is a 1.7 cm x 1.3 cm x 2.5 cm soft tissue density in the subcutaneous tissues overlying the right side of the sternum at the mid-level of the chest. This may represent a postoperative or change. This abuts the overlying skin surface. The lungs are normal. There is no demonstrated pleural abnormality. Sternal cerclage wires and vascular clips are present from a prior sternotomy and coronary artery bypass graft procedure (CABG). Normal mediastinum. Normal hilar regions. Normal enhanced pulmonary arteries. Normal aorta arch and descending thoracic aorta. There are multi-level degenerative changes of the thoracic spine. Small splenic cysts. Small left renal cyst. CT/Chest WITH Contrast IMPRESSION: Status post CABG. A 1.7 cm x 1.3 cm x 2.5 cm soft tissue density in the subcutaneous tissues overlying the right side of the sternum at the midthoracic level. This may present a postoperative change. Electronically Signed: Peter Morillo, at 13:21 EDT , Service support ,
[2019-01-26 11:27] VITALS: BP 112/52; PULSE 61; RESP 16; O2SAT 98; BMI 46.5
[2019-01-26] MEDS: MethylPREDNISolone 125 MG/2 ML Vial 60 MG IV (11:41)
[2019-01-26] MEDS: DiphenhydrAMINE 50 MG/ML Syringe IV (11:41)
[2019-01-26 13:10] VITALS: BP 119/41; PULSE 60; RESP 16; O2SAT 100
== END ==
PROVIDERS: Family Provider Family Medicine; PCP Family Medicine; Referring Provider Internal Medicine Cardiovascular Disease; Visit Provider Internal Medicine Cardiovascular Disease
DX: R07.89 Other chest pain (principal); Z95.0 Presence of cardiac pacemaker; Z95.2 Presence of prosthetic heart valve; M06.9 Rheumatoid arthritis, unspecified; Z87.39 Personal history of other diseases of the musculoskeletal system and connective tissue
CPT/HCPCS: 71260; Q9967; A4216

== ENCOUNTER 2019-02-09 12:06 | Outpatient (RCR) | payer MEDICARE, OTHER, SELFPAY ==
[2018-12-21 10:57] VITALS: BMI 45.8
[2019-01-23 13:49] LABS: International Normalized Ratio 2.5; Prothrombin Time (Protime)PT. 27.3 SECONDS (11.7-14.9)
[2019-02-09 12:51] LABS: International Normalized Ratio 2.4; Prothrombin Time (Protime)PT. 26.4 SECONDS (11.7-14.9)
== END 2019-02-09 13:00 | disposition home or self-care (01) ==
LOC: LAB 12:06
PROVIDERS: Family Provider Family Medicine; PCP Family Medicine; Referring Provider Internal Medicine Cardiovascular Disease; Visit Provider Internal Medicine Cardiovascular Disease
DX: I48.0 Paroxysmal atrial fibrillation (principal); Z79.01 Long term (current)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
CPT/HCPCS: 36415; 85610

== ENCOUNTER → 2019-02-27 10:13 | Outpatient (CLI) | payer MEDICARE, OTHER, SELFPAY ==
[2019-02-27 10:13] VITALS: BMI 46.5
[2019-02-27 12:10] LABS: Anion Gap 7 (5-15); BUN 27 mg/dL (7-18); BUN/Creat Ratio 22.3 RATIO (10-20); Calcium,Total 8.6 mg/dL (8.5-10.1); Chloride 104 mmol/L (98-107); Cholesterol 148 mg/dL (200); Creatinine, Serum 1.21 mg/dL (0.55-1.02); EST Glomerular Filtration Rate 47 mL/min (>60); Est Glom Filt Rate - Afr Amer 57 mL/min (>60); Glucose 96 mg/dL (74-106); High Density Lipoprotein 61 mg/dL; Potassium 4.4 mmol/L (3.5-5.1); Sodium Level 142 mmol/L (136-145); Thyroid Stim Hormone (TSH) 2.09 uIU/mL (0.358-3.74); Triglycerides 85 mg/dL; Very Low Density Lipoprotein 17 mg/dL (5-40)
== END ==
PROVIDERS: Family Provider Family Medicine; PCP Family Medicine; Referring Provider Family Medicine; Visit Provider Family Medicine
DX: E03.9 Hypothyroidism, unspecified (principal); E11.9 Type 2 diabetes mellitus without complications
CPT/HCPCS: 36415; 80048; 80061; 84443

== ENCOUNTER 2019-03-14 12:23 | Outpatient (RCR) | payer MEDICARE, OTHER, SELFPAY ==
[2019-02-27 10:13] VITALS: BMI 46.5
[2019-03-14 13:46] LABS: International Normalized Ratio 2.2; Prothrombin Time (Protime)PT. 24.8 SECONDS (11.7-14.9)
== END 2019-03-14 13:00 | disposition home or self-care (01) ==
LOC: LAB 12:23
PROVIDERS: Family Provider Family Medicine; PCP Family Medicine; Referring Provider Internal Medicine Cardiovascular Disease; Visit Provider Internal Medicine Cardiovascular Disease
DX: I48.0 Paroxysmal atrial fibrillation (principal); Z79.01 Long term (current)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
CPT/HCPCS: 36415; 85610

== ENCOUNTER 2019-04-13 14:08 | Outpatient (RCR) | payer MEDICARE, OTHER, SELFPAY ==
[2019-02-27 10:13] VITALS: BMI 46.5
[2019-04-13 15:11] LABS: Erythrocyte Sedimentation Rate 9 mm/hr (0-30)
[2019-04-13 15:12] LABS: Absolute Lymphocyte Count 1.57 X10^3/uL (0.83-4.51); Basophil# 0.03 X10^3/uL; Basophil% 0.5 % (0-1); Eosinophil# 0.06 X10^3/uL; Hematocrit 36.9 % (37-47); Hemoglobin 11.9 g/dL (12.0-15.0); Lymphocyte # 1.57 X10^3/ul (4.0); Lymphocyte % 25.5 % (19-41); Mean Corp Hgb Conc 32.2 g/dL (32-36); Mean Corpuscular Hgb 32.4 pg (27.0-32.0); Mean Corpuscular Volume 100.5 fL (81-99); Mean Platelet Vol. 10.1 fl (6.2-12.0); Monocyte# 0.44 X10^3/uL; Monocyte% 7.2 % (0-10); NRBC Flagged by Analyzer 0 % (0-5); Neutrophil # 4.03 X10^3/uL (2.7-7.7); Neutrophil % 65.5 % (47-70); Platelet Count 162 K/mm3 (150-450); RBC Distribution Width CV 13.6 % (11.6-14.6); RBC Distribution Width SD 50.1 fl (35.1-43.9); Red Blood Count 3.67 M/mm3 (4.2-5.4); White Blood Count 6.2 K/mm3 (4.4-11.0)
[2019-04-13 15:16] LABS: Prothrombin Time (Protime)PT. 22.3 SECONDS (11.7-14.9)
[2019-04-13 15:36] LABS: AST(SGOT) 24 U/L (15-37); Alanine Aminotransfer ALT/SGPT 23 U/L (13-56); Albumin, Serum 3.7 g/dL (3.2-5.0); BUN 24 mg/dL (7-18); CRP 7.73 mg/L (0.0-3.0); Creatinine, Serum 1.31 mg/dL (0.55-1.02); EST Glomerular Filtration Rate 43 mL/min (>60); Est Glom Filt Rate - Afr Amer 52 mL/min (>60)
== END 2019-04-18 16:00 | disposition home or self-care (01) ==
LOC: LAB 14:08
PROVIDERS: Family Provider Family Medicine; PCP Family Medicine; Referring Provider Internal Medicine Cardiovascular Disease; Visit Provider Internal Medicine Cardiovascular Disease
DX: M06.9 Rheumatoid arthritis, unspecified (principal); I48.0 Paroxysmal atrial fibrillation; Z79.01 Long term (current)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
CPT/HCPCS: 36415; 82040; 82565; 84450; 84460; 84520; 85025; 85610; 85652; 86140

== ENCOUNTER → 2019-08-09 12:39 | Outpatient (CLI) | payer MEDICARE, OTHER, SELFPAY ==
[2019-07-26 11:16] VITALS: BMI 47.1
--- NOTE | 2019-08-09 12:40 | ECHOCS_ITS ---
Reason For Study: AVR Procedure This was a 2D Doppler, Color Flow transthoracic echocardiogram. The study was technically difficult. Contrast injection was performed. Exam performed in department. Left Ventricle Mildly dilated left ventricle. The estimated ejection fraction is 55 %. Stage 1 diastolic dysfunction. There is mild global hypokinesis of the left ventricle. Right Ventricle Normal size and thickness. Normal systolic function. Atria Normal left atrium. Normal right atrium. Normal atrial septum. Mitral Valve Mild diffuse mitral valve thickening. Trivial mitral valve insufficiency. Tricuspid Valve Normal tricuspid valve. Mild (1+) tricuspid valve insufficiency. Right ventricular systolic pressure estimated to be 28 mmHg. Aortic Valve Peak aortic valve gradient 18 mmHg. Mean aortic valve gradient 10 mmHg. Calculated aortic valve area (continuity equation) is 1.5 cm2. Stable appearing bioprosthetic aortic valve apparatus. Pulmonic Valve Normal pulmonic valve. Great Vessels Normal aortic root. Normal arch. Normal inferior vena cava. Inferior vena cava collapse with sniff. Pericardium/Pleural No pericardial effusion. Medication 22 gauge I.V. with prn adaptor inserted into right arm. Diluted definity 3.0ml given slow IV push to enhance endocardial definition. MMode/2D Measurements & Calculations LVIDd: 5.1 cm IVSd: 0.64 cm LVOT diam: 1.9 cm LVIDs: 3.6 cm LVPWd: 0.80 cm RVDd: 3.4 cm FS: 28.8 % LVOT area: 2.8 cm2 Ao root diam: 2.9 cm LAV(MOD-bp): 53.5 ml EDV(MOD-sp4): 108.1 ml LAV(MOD-bp) Indexed: 28.8 ml/m2 ESV(MOD-sp4): 47.1 ml LAV(MOD-sp2): 54.1 ml EF(MOD-sp4): 56.4 % LAV(MOD-sp4): 51.4 ml EDV(MOD-sp2): 89.8 ml SV(MOD-sp4): 61.0 ml SV(MOD-sp2): 47.4 ml EF(MOD-sp2): 52.8 % LA dimension(2D): 4.1 cm LA A4 area: 18.5 cm2 RA A4 area: 14.9 cm2 Time Measurements MV dec time: 0.29 sec Doppler Measurements & Calculations MV E max spike: 88.5 cm/sec Lat Peak E' Spike: 10.1 cm/sec Med Peak E' Spike: 5.3 cm/sec MV A max spike: 123.6 cm/sec E/E' lat: 8.7 E/E' med: 16.7 MV E/A: 0.72 Ao V2 max: 211.0 cm/sec AI max spike: 340.1 cm/sec LV V1 max: 104.8 cm/sec Ao max P.8 mmHg AI max P.3 mmHg LV V1 max P.4 mmHg Ao V2 mean: 150.6 cm/sec AI dec slope: 198.8 cm/sec2 LV V1 mean P.5 mmHg Ao mean P.0 mmHg AI P1/2t: 500.9 msec LV V1 mean: 74.4 cm/sec Ao V2 VTI: 48.6 cm LV V1 VTI: 25.8 cm DANA(I,D): 1.5 cm2 DANA(V,D): 1.4 cm2 SV(LVOT): 71.5 ml PA V2 max: 117.5 cm/sec TR max spike: 253.6 cm/sec TR max P.8 mmHg Interpretation Summary Mildly dilated left ventricle. The estimated ejection fraction is 55 %. Stage 1 diastolic dysfunction. There is mild global hypokinesis of the left ventricle. Trivial mitral valve insufficiency. Mild (1+) tricuspid valve insufficiency. Right ventricular systolic pressure estimated to be 28 mmHg. Stable appearing and normally functioning bioprosthetic aortic valve apparatus. Compared to echo report dated 03/30/2018, LV function has improved from 45% to 55%. The study was technically difficult. Contrast injection was performed. Ordering Physician: Taz Agee Referring Physician: RAMONA MAZARIEGOS Performed By: Louisa Davison, NIDHICS, RVT
== END ==
PROVIDERS: Family Provider Family Medicine; PCP Family Medicine; Referring Provider Internal Medicine Cardiovascular Disease; Visit Provider Internal Medicine Cardiovascular Disease
DX: Z95.2 Presence of prosthetic heart valve (principal); I97.89 Other postprocedural complications and disorders of the circulatory system, not elsewhere classified; I48.91 Unspecified atrial fibrillation; G47.33 Obstructive sleep apnea (adult) (pediatric); R00.2 Palpitations
CPT/HCPCS: 93306; Q9957; A4216; C8929

== ENCOUNTER 2019-08-21 14:38 | Outpatient (RCR) | payer MEDICARE, OTHER, SELFPAY ==
[2019-02-27 10:13] VITALS: BMI 46.5
[2019-07-26 11:16] VITALS: BMI 47.1
[2019-08-21 16:29] LABS: Absolute Lymphocyte Count 1.83 X10^3/uL (0.83-4.51); Absolute Neutrophil Count 4.8 X10^3/uL (2.0-7.7); Basophil# 0.05 X10^3/uL; Basophil% 0.7 % (0-1); Eosinophil# 0.06 X10^3/uL; Eosinophils% 0.8 % (0-5); Hematocrit 39.4 % (37-47); Hemoglobin 12.6 g/dL (12.0-15.0); Lymphocyte # 1.83 X10^3/ul (4.0); Lymphocyte % 24.9 % (19-41); Mean Corpuscular Hgb 31.7 pg (27.0-32.0); Mean Corpuscular Volume 99.2 fL (81-99); Mean Platelet Vol. 10.7 fl (6.2-12.0); Monocyte# 0.57 X10^3/uL; Monocyte% 7.7 % (0-10); NRBC Flagged by Analyzer 0 % (0-5); Neutrophil # 4.83 X10^3/uL (2.7-7.7); Neutrophil % 65.6 % (47-70); Platelet Count 195 K/mm3 (150-450); RBC Distribution Width CV 13.6 % (11.6-14.6); RBC Distribution Width SD 48.8 fl (35.1-43.9); Red Blood Count 3.97 M/mm3 (4.2-5.4); White Blood Count 7.4 K/mm3 (4.4-11.0)
[2019-08-21 16:49] LABS: AST(SGOT) 23 U/L (15-37); Alanine Aminotransfer ALT/SGPT 22 U/L (13-56); Albumin, Serum 3.7 g/dL (3.2-5.0); BUN 19 mg/dL (7-18); CRP 6.29 mg/L (0.0-3.0); Creatinine, Serum 1.11 mg/dL (0.55-1.02); EST Glomerular Filtration Rate 52 mL/min (>60); Erythrocyte Sedimentation Rate 7 mm/hr (0-30); Est Glom Filt Rate - Afr Amer 63 mL/min (>60)
[2019-08-21 17:24] LABS: International Normalized Ratio 2.1; Prothrombin Time (Protime)PT. 23.9 SECONDS (11.7-14.9)
== END 2019-08-21 18:00 | disposition home or self-care (01) ==
LOC: LAB 14:38
PROVIDERS: Family Provider Family Medicine; PCP Family Medicine; Referring Provider Internal Medicine Cardiovascular Disease; Visit Provider Internal Medicine Cardiovascular Disease
DX: M06.9 Rheumatoid arthritis, unspecified (principal); I48.0 Paroxysmal atrial fibrillation; Z79.01 Long term (current)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
CPT/HCPCS: 36415; 82040; 82565; 84450; 84460; 84520; 85025; 85610; 85652; 86140

== ENCOUNTER → 2019-08-28 10:23 | Outpatient (CLI) | payer MEDICARE, OTHER, SELFPAY ==
[2019-07-26 11:16] VITALS: BMI 47.1
[2019-08-28 12:01] LABS: Free T3 2.7 pg/mL (2.18-3.98); T4 Total, Thyroxin 10.7 ug/dL (4.8-13.9)
== END ==
PROVIDERS: Family Provider Family Medicine; PCP Family Medicine; Referring Provider Family Medicine; Visit Provider Family Medicine
DX: E03.9 Hypothyroidism, unspecified (principal)
CPT/HCPCS: 36415; 84436; 84481

== ENCOUNTER → 2020-02-27 09:47 | Outpatient (CLI) | payer MEDICARE, OTHER, SELFPAY ==
[2019-07-26 11:16] VITALS: BMI 47.1
[2020-02-27 12:44] LABS: Anion Gap 4 (5-15); BUN 27 mg/dL (7-18); BUN/Creat Ratio 22.5 RATIO (10-20); Chloride 108 mmol/L (98-107); Cholesterol 202 mg/dL (200); EST Glomerular Filtration Rate 47 mL/min (>60); Est Glom Filt Rate - Afr Amer 57 mL/min (>60); Glucose 101 mg/dL (74-106); High Density Lipoprotein 51 mg/dL; Potassium 4.6 mmol/L (3.5-5.1); Sodium Level 142 mmol/L (136-145); Thyroid Stim Hormone (TSH) 3.01 uIU/mL (0.358-3.74); Triglycerides 124 mg/dL; Very Low Density Lipoprotein 25 mg/dL (5-40)
== END ==
PROVIDERS: PCP Family Medicine; Visit Provider Family Medicine
DX: E11.9 Type 2 diabetes mellitus without complications (principal); E03.9 Hypothyroidism, unspecified
CPT/HCPCS: 36415; 80048; 80061; 84443

== ENCOUNTER 2020-02-28 13:00 | Outpatient (RCR) | payer MEDICARE, OTHER, SELFPAY ==
[2019-07-26 11:16] VITALS: BMI 47.1
[2020-02-28 14:47] LABS: Absolute Lymphocyte Count 1.53 X10^3/uL (0.83-4.51); Absolute Neutrophil Count 3.5 X10^3/uL (2.0-7.7); Basophil# 0.03 X10^3/uL; Basophil% 0.5 % (0-1); Eosinophil# 0.08 X10^3/uL; Eosinophils% 1.4 % (0-5); Hemoglobin 11.8 g/dL (12.0-15.0); Lymphocyte # 1.53 X10^3/ul (4.0); Lymphocyte % 26.9 % (19-41); Mean Corp Hgb Conc 31.9 g/dL (32-36); Mean Corpuscular Hgb 32.4 pg (27.0-32.0); Mean Corpuscular Volume 101.6 fL (81-99); Mean Platelet Vol. 10.7 fl (6.2-12.0); Monocyte# 0.55 X10^3/uL; Monocyte% 9.7 % (0-10); NRBC Flagged by Analyzer 0 % (0-5); Neutrophil # 3.48 X10^3/uL (2.7-7.7); Neutrophil % 61.3 % (47-70); Platelet Count 164 K/mm3 (150-450); RBC Distribution Width CV 14.4 % (11.6-14.6); RBC Distribution Width SD 52.1 fl (35.1-43.9); Red Blood Count 3.64 M/mm3 (4.2-5.4); White Blood Count 5.7 K/mm3 (4.4-11.0)
[2020-02-28 14:56] LABS: Erythrocyte Sedimentation Rate 13 mm/hr (0-30)
[2020-02-28 15:08] LABS: AST(SGOT) 23 U/L (15-37); Alanine Aminotransfer ALT/SGPT 26 U/L (13-56); Albumin, Serum 3.5 g/dL (3.2-5.0); BUN 24 mg/dL (7-18); CRP 8.23 mg/L (0.0-3.0); Creatinine, Serum 1.25 mg/dL (0.55-1.02); EST Glomerular Filtration Rate 45 mL/min (>60); Est Glom Filt Rate - Afr Amer 55 mL/min (>60)
== END 2020-02-28 18:00 ==
LOC: LAB 13:00
PROVIDERS: Family Provider Family Medicine; PCP Family Medicine; Referring Provider Internal Medicine Cardiovascular Disease; Visit Provider Internal Medicine
DX: M05.79 Rheumatoid arthritis with rheumatoid factor of multiple sites without organ or systems involvement (principal); I48.0 Paroxysmal atrial fibrillation; Z79.01 Long term (current)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
CPT/HCPCS: 36415; 82040; 82565; 84450; 84460; 84520; 85025; 85652; 86140

== ENCOUNTER 2020-06-09 12:01 | Outpatient (RCR) | payer MEDICARE, OTHER, SELFPAY ==
[2019-07-26 11:16] VITALS: BMI 47.1
[2020-06-09 12:42] LABS: Absolute Neutrophil Count 3.9 X10^3/uL (2.0-7.7); Basophil# 0.03 X10^3/uL; Basophil% 0.5 % (0-1); Eosinophil# 0.06 X10^3/uL; Eosinophils% 1.1 % (0-5); Hemoglobin 12.4 g/dL (12.0-15.0); Lymphocyte % 21.5 % (19-41); Mean Corp Hgb Conc 31.8 g/dL (32-36); Mean Corpuscular Hgb 32.5 pg (27.0-32.0); Mean Corpuscular Volume 102.4 fL (81-99); Mean Platelet Vol. 10.3 fl (6.2-12.0); Monocyte# 0.34 X10^3/uL; Monocyte% 6.1 % (0-10); NRBC Flagged by Analyzer 0 % (0-5); Neutrophil # 3.93 X10^3/uL (2.7-7.7); Neutrophil % 70.4 % (47-70); Platelet Count 185 K/mm3 (150-450); RBC Distribution Width CV 13.7 % (11.6-14.6); RBC Distribution Width SD 51.9 fl (35.1-43.9); Red Blood Count 3.81 M/mm3 (4.2-5.4); White Blood Count 5.6 K/mm3 (4.4-11.0)
[2020-06-09 12:46] LABS: Erythrocyte Sedimentation Rate 14 mm/hr (0-30)
[2020-06-09 13:03] LABS: AST(SGOT) 29 U/L (15-37); Alanine Aminotransfer ALT/SGPT 25 U/L (13-56); Albumin, Serum 3.6 g/dL (3.2-5.0); BUN 20 mg/dL (7-18); CRP 6.92 mg/L (0.0-3.0); Creatinine, Serum 1.15 mg/dL (0.55-1.02); EST Glomerular Filtration Rate 50 mL/min (>60); Est Glom Filt Rate - Afr Amer 60 mL/min (>60)
== END 2020-06-09 18:00 | disposition home or self-care (01) ==
LOC: LAB 12:01
PROVIDERS: Family Provider Family Medicine; PCP Family Medicine; Referring Provider Internal Medicine Cardiovascular Disease; Visit Provider Internal Medicine
DX: M05.79 Rheumatoid arthritis with rheumatoid factor of multiple sites without organ or systems involvement (principal)
CPT/HCPCS: 36415; 82040; 82565; 84450; 84460; 84520; 85025; 85652; 86140

== ENCOUNTER 2020-06-14 18:37 | Emergency (ER) | payer MEDICARE, OTHER, SELFPAY ==
[2019-07-26 11:16] VITALS: BMI 47.1
[2020-06-14 18:38] VITALS: BP 130/50; PULSE 60; RESP 18; TEMP 37.1; O2SAT 99; BMI 47.8
--- NOTE | 2020-06-14 18:55 | ED.VISSUMM ---
- ER Visit Summary Date of Service: 06/14/20 Chief Complaint: Vomiting blood History of Present Illness: The patient is a [address] Bird Woodall. She reports that she took azathioprine for the first time today at 1:00. Approximately 3:00 she became nauseated and is vomited multiple times. Reports that the first 4-5 episodes there was no blood. She then vomited specks of blood. This progressed and she reports that she vomited pure blood multiple times. She reports that she had a bowel movement just prior to coming emerge department. The initial portion of this was formed. The second portion of this was black. She denies any abdominal pain. Patient reports that she had a colonoscopy approximately [address] Charles. She had an endoscopy a long time ago. She is on Coumadin for paroxysmal atrial fibrillation. Physical Examination: Vitals: Stable. Afebrile. General: Well-nourished and well-developed. Head: Normocephalic atraumatic. Neck: Supple, no lymphadenopathy. No JVD. Nontender. Cardiovascular: Regular rate and rhythm. No murmurs. Respiratory: No respiratory distress. Clear to auscultation bilaterally. Abdominal: Soft, nontender, nondistended, normal bowel sounds. No guarding, rebound, or peritoneal signs. Back: Nontender. Extremities: Nontender, no edema. Skin: Normal color, no rash. Neurologic: Alert and oriented ?3. Cranial nerves II through XII are intact. Normal strength and sensation. Psych: Normal affect. Test Results: CBC shows a white count of 14.7, stable neutrophils 95, lymphocytes of 1. I suspect that the elevated white count is demargination secondary to her vomiting. Her hemoglobin is 14.2. Her hemoglobin 5 days ago was 12.4. Chem-7 shows a glucose 148, BUN of 30, creatinine 1.67. LFTs are normal. INR is 1.9. PTT is 30.1. Emergency Department Course and Treatment: Patient had an IV placed. She was given a liter normal saline. She was given Zofran IV. Treatment Plan: Patient is resting comfortably and would like to go home. Her presentation is most consistent with a Brigid-Mullen tear. I feel that this is a reasonable course of action. She will be discharged with Zofran. Instructed return the emerge department for any worsening symptoms. Follow-up with her primary care physician in 2 days for another exam. Disposition: To home in improved and stable condition. Impression: 1. Hematemesis, suspect Brigid-Mullen tear. 2. Coumadin coagulopathy. This note was generated with VisConPro dictation software. It may contain incorrect words, spelling, and punctuation that were not noted in review of the chart prior to signing ED Disposition - Plan for ED Patient: Instructions: ED Bleed UGI Stable Prescriptions: Ondansetron [Zofran Odt] 4 mg PO Q8H PRN PRN #10 tablet PRN Reason: Nausea Referrals: Bird Garza MD [Primary Care Provider] - 2 Days
[2020-06-14 19:22] LABS: Absolute Lymphocyte Count 0.17 X10^3/uL (0.83-4.51); Basophil# 0.02 X10^3/uL; Basophil% 0.1 % (0-1); Eosinophils% 1.4 % (0-5); Hematocrit 43.5 % (37-47); Hemoglobin 14.2 g/dL (12.0-15.0); Lymphocyte # 0.17 X10^3/ul (4.0); Lymphocyte % 1.2 % (19-41); Mean Corp Hgb Conc 32.6 g/dL (32-36); Mean Corpuscular Volume 101.2 fL (81-99); Mean Platelet Vol. 10.4 fl (6.2-12.0); Monocyte# 0.21 X10^3/uL; Monocyte% 1.4 % (0-10); NRBC Flagged by Analyzer 0 % (0-5); Neutrophil # 14.04 X10^3/uL (2.7-7.7); Neutrophil % 95.3 % (47-70); POSITIVE DIFFERENTIAL YES; Platelet Count 204 K/mm3 (150-450); RBC Distribution Width CV 13.5 % (11.6-14.6); RBC Distribution Width SD 50.4 fl (35.1-43.9); White Blood Count 14.7 K/mm3 (4.4-11.0)
[2020-06-14] MEDS: 0.9% Normal Saline 1,000 ML 1000 ML IV (19:22)
[2020-06-14] MEDS: Ondansetron 4 MG/2 ML Vial IV (19:23)
[2020-06-14 19:24] VITALS: BP 140/50; PULSE 62; RESP 16; O2SAT 99
[2020-06-14 19:35] LABS: International Normalized Ratio 1.9; Prothrombin Time (Protime)PT. 21.1 SECONDS (11.7-14.9)
[2020-06-14 19:36] LABS: Partial Thromboplast Time 30.1 Seconds (24.1-36.2)
[2020-06-14 19:41] LABS: Differential Indicated SCAN CRITERIA MET
[2020-06-14 19:46] LABS: ALB/GLOB Ratio 1.1 RATIO (0.9-2.4); AST(SGOT) 37 U/L (15-37); Alanine Aminotransfer ALT/SGPT 29 U/L (13-56); Alkaline Phosphatase 67 U/L (45-117); Anion Gap 6 (5-15); BUN 30 mg/dL (7-18); Calcium,Total 9.4 mg/dL (8.5-10.1); Chloride 106 mmol/L (98-107); Creatinine, Serum 1.67 mg/dL (0.55-1.02); EST Glomerular Filtration Rate 32 mL/min (>60); Est Glom Filt Rate - Afr Amer 39 mL/min (>60); Estimated Creatinine Clearance 50.34 ml/min; Globulin 3.5 g/dL (2.2-4.2); Glucose 148 mg/dL (74-106); Potassium 4.5 mmol/L (3.5-5.1); Protein, Total 7.5 g/dL (6.4-8.2); Sodium Level 138 mmol/L (136-145)
[2020-06-14 19:51] LABS: Anisocytosis 1+; Macrocytosis 1+; Platelet Estimate ADEQUATE (ADEQ); Red Cell Morphology N CHROM NORMAL (NORM C&C)
[2020-06-14 20:02] VITALS: BP 123/52; PULSE 65; RESP 18; TEMP 37.1; O2SAT 98
[2020-06-14 20:22] VITALS: BP 123/52; PULSE 65; RESP 16; O2SAT 98
== END 2020-06-14 20:24 | disposition home or self-care (01) ==
LOC: ED 18:58
PROVIDERS: Emergency Provider Emergency Medicine; PCP Family Medicine
DX: K92.0 Hematemesis (principal); T45.515A Adverse effect of 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, initial encounter; R79.1 Abnormal coagulation profile; I48.0 Paroxysmal atrial fibrillation; I10 Essential (primary) hypertension; Z79.01 Long term (current)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; Z79.82 Long term (current) use of aspirin
CPT/HCPCS: 80053; 85025; 85610; 85730; 86850; 86900; 86901; 96374; 99285; J7030; A4216; J2405

== ENCOUNTER 2020-07-15 08:30 | Day surgery (SDC) | payer MEDICARE, OTHER, SELFPAY ==
[2020-06-26 13:52] VITALS: BMI 47.8
[2020-07-15 08:51] LABS: Prothrombin Time Fingerstick 14.9 SEC (11.9-14.4)
[2020-07-15 08:53] VITALS: BP 153/56; PULSE 63; RESP 16; TEMP 36.6; O2SAT 98; BMI 45.8
[2020-07-15] MEDS: Lactated Ringers 1,000 ML 100 ML IV (09:16)
--- NOTE | 2020-07-15 09:43 | PCM.HP.BLA ---
Problem List (1) Melena Status: Acute History and Physical Date of Admission: 07/15/20 Intake Vital Signs 06/26/20 Height 4 ft 10 in 06/26/20 Weight: 210 lb 06/26/20 BMI 43.9 06/26/20 Respiration 16 Intake Visit Reasons: Nausea Chief Complaint: discuss scope Allergies Iodinated Contrast Media [Iodinated Contrast- Oral and IV Dye] Allergy (Severe, Verified 06/14/20 18:43) Hives sulfasalazine Allergy (Mild, Verified 06/26/20 13:36) Unknown amiodarone Allergy (Unknown, Verified 06/14/20 18:43) Unknown ciprofloxacin HCl [From Cipro] Allergy (Verified 06/14/20 18:43) Unknown insulin glargine, human recombin. a [From Lantus] Allergy (Verified 06/14/20 18:43) Unknown prednisone Adverse Reaction (Severe, Verified 06/14/20 18:43) Visual changes, glaucoma benjamin Adverse Reaction (Severe, Uncoded 06/14/20 18:43) Neck pain & tingling Medications Aspirin E.C. [Ecotrin] 81 mg PO DAILY@0800 09/21/16 [History Confirmed 06/26/20] Hydroxychloroquine [Plaquenil] 400 mg PO DAILY 09/21/16 [History Confirmed 06/26/20] Levothyroxine Sodium 50 mcg PO DAILY 09/21/16 [History Confirmed 06/26/20] Clonazepam [Klonopin] 1 mg PO QHS 07/18/17 [History Confirmed 06/26/20] Sertraline HCl [Zoloft] 50 mg PO DAILY 07/18/17 [History Confirmed 06/26/20] atorvastatin 10 mg tablet 10 mg PO QHS tab 12/12/17 [History Confirmed 06/26/20] magnesium oxide 400 mg (241.3 mg magnesium) tablet 400 mg PO BID #180 tab 03/06/18 [Rx Confirmed 06/26/20] ferrous sulfate 324 mg (65 mg iron) tablet,delayed release 324 mg PO BID #60 tab 03/31/18 [Rx Confirmed 06/26/20] Methotrexate 20 mg PO Q7D 09/07/18 [History Confirmed 06/26/20] calcitriol 0.25 mcg capsule 0.25 mcg PO Q OTHER DAY cap 09/25/18 [History Confirmed 06/26/20] amoxicillin 500 mg tablet 500 mg PO .COMPLEX #4 tab 12/21/18 [Rx Confirmed 06/26/20] furosemide 40 mg tablet 40 mg PO DAILY #90 tab 11/13/19 [Rx Confirmed 06/26/20] warfarin 5 mg tablet 7.5 mg PO DAILY #135 tab 11/19/19 [Rx Confirmed 06/26/20] lisinopril 5 mg tablet 5 mg PO DAILY #90 tab 12/04/19 [Rx Confirmed 06/26/20] diltiazem HCl 120 mg capsule,24 hr,extended release 120 mg PO DAILY #90 cap 05/06/20 [Rx Confirmed 06/26/20] Azathioprine 50 mg PO DAILY 06/14/20 [History Confirmed 06/14/20] Ondansetron [Zofran Odt] 4 mg PO Q8H PRN PRN #10 tab 06/14/20 [Rx Confirmed 06/26/20] cyclobenzaprine 10 mg tablet 10 mg PO HS 06/26/20 [History Confirmed 06/26/20] omeprazole 40 mg capsule,delayed release 40 mg PO DAILY 06/26/20 [History Confirmed 06/26/20] pantoprazole 40 mg tablet,delayed release 40 mg PO DAILY 06/26/20 [History Confirmed 06/26/20] promethazine 25 mg rectal suppository 25 mg RC Q6H PRN 06/26/20 [History Confirmed 06/26/20] sucralfate 100 mg/mL oral suspension 10 ml PO QACHS #420 ml 06/26/20 [Rx Confirmed 06/26/20] PFSH Medical History Hypertension (Chronic) Junctional rhythm (Chronic) Sick sinus syndrome (Chronic) Obstructive sleep apnea (Chronic) Palpitations (Chronic) Hyperlipidemia (Chronic) History of Sjogren's disease (Chronic) Rheumatoid arthritis (Chronic) Type 2 diabetes mellitus without complications (Chronic) Hypothyroidism (Chronic) care home (current)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 (Chronic) Postoperative atrial fibrillation (Acute) Secondary pulmonary arterial hypertension (Chronic) Dyspnea (Chronic) Obesity (BMI 30.0-34.9) (Chronic) Central apnea (Chronic) Non-rheumatic aortic stenosis (Chronic) Surgical History Cardiac pacemaker in situ (Chronic 10/09/18) History of right and left heart catheterization (Chronic 09/22/16) S/P AVR (aortic valve replacement) (Chronic 11/28/17) Bilateral carpal tunnel syndrome (Chronic) History of partial hysterectomy (Chronic) History of right knee joint replacement (Chronic) History of tonsillectomy (Chronic) Hx of cholecystectomy (Chronic) Family History Brother CAD (coronary artery disease) CABG age 45 Father CAD (coronary artery disease) from [place] age 63 Mother Hypertension Cancer Sister Cancer Myocardial infarction, Onset Age: 45 Brother Cancer lung Social History (Updated 06/26/20 @ 15:[address] Jovan Webb MD) Smoking Status: Never smoker alcohol intake: current alcohol intake frequency: holidays/special occasions only Alcohol type: wine substance use type: does not use caffeine: No what type of physical activity do you participate in: none seatbelt use: always do you feel safe at home: Yes HPI HPI HPI: GRACIELA KIRK, is a 70 F who presents to the office today for HPI HPI HPI: GRACIELA KIRK, is a 70 F who presents to the office today for history of upper GI bleeding. The patient in the emergency room saying that she started having nausea after being started on azathioprine. After starting on this medication she developed severe nausea and vomiting. She reports that after a lot of retching vomiting she started having bloody vomiting and melena. The patient had resolution of this and was started on a PPI. Her nausea did resolve once being started on a PPI. She was on aspirin and no PPI. ROS General General: Yes fatigue; no weight change Endo Endocrine: Yes thyroid disease and diabetes mellitus Cardio Cardiovascular: Yes pacemaker, heart disease, atrial fibrillation and high blood pressure; no murmur, heart attack, heart stent, palpitations, shortness of breat with exertion or chest pain Psych Psychiatric: Yes depression; no anxiety Resp Respiratory: No shortness of breath, Yes sleep apnea, No cough, Yes COPD, No asthma, No emphysema, No wheezing Gastro Gastrointestinal: Yes abdominal pain, Yes nausea or vomiting, No diarrhea, No constipation, Yes blood in stool, No acid reflux, No hemorrhoids, No ulcers, Yes gallbladder problem, No black,tarry stools Nguyễn Hematologic: Yes blood thinners, Yes bleeding Exam Const General: cooperative Orientation: alert, oriented x3 Resp Effort & Inspection: normal respiratory effort Auscultation: clear to auscultation bilaterally Cardio Rate: regular rate Rhythm: regular rhythm Heart Sounds: no murmurs GI Inspection: non-distended Palpation: soft, nontender Assessment & Plan Problems 1. Upper gastrointestinal bleed K92.2 Plan The patient likely has peptic ulcer disease. She is on a PPI and I have added Carafate. The patient had melena as well as upper GI bleeding. I recommend an EGD to ensure that this is the cause. I explained endoscopy in detail to the patient. I explained the risks including but not limited to stroke or heart attack with anesthesia, perforation of the GI tract, bleeding, infection. I explained that any of these could necessitate further emergency surgery. The patient understands and all questions were answered sufficiently. The patient wishes to proceed with procedure. We discussed the current risks associated with COVID-19. While it is understood that there is a community spread of COVID-19, the risk of ellen COVID-19 while at [facility] ([facility]) is very low; however, the risk cannot be completely mitigated because of the community spread of the disease. We discussed in detail the risk of exposure to and/or potential harm posed by the COVID-19 virus with having a surgery/procedure at this time versus the risk of delaying the surgery/procedure. It is not possible to know either the risk of delaying the surgery or procedure or chance of getting an infection with perfect accuracy, but a joint decision was made to proceed at this time with the scheduled surgery/procedure as indicated on the consent form. Patient was notified that we will need to comply with any screening or testing [facility] wishes to perform or that surgery may be delayed for any positive results. Jovan Webb MD Pager: [facility] [address] [place] [address], [address] [place] [address] Office: I have re-examined the patient. There are no clinical changes since date of exam.
--- NOTE | 2020-07-15 09:54 | OP.EGD_ITS ---
Patient Name: Anh Brito Procedure Date: 07/15/2020 9:41 AM Date of : 1950 Age: 70 Procedure: Upper GI endoscopy Indications: Melena Providers: Jovan Webb MD Referring MD: Bird Garza MD Medicines: Monitored Anesthesia Care Patient Profile: This is a 70 year old female. Refer to note in patient chart for documentation of history and physical. Complications: No immediate complications. Procedure: Pre-Anesthesia Assessment: - Prior to the procedure, a History and Physical was performed, and patient medications and allergies were reviewed. The patient's tolerance of previous anesthesia was also reviewed. The risks and benefits of the procedure and the sedation options and risks were discussed with the patient. All questions were answered, and informed consent was obtained. Prior Anticoagulants: The patient has taken Coumadin (warfarin), last dose was 5 days prior to procedure. After reviewing the risks and benefits, the patient was deemed in satisfactory condition to undergo the procedure. After obtaining informed consent, the endoscope was passed under direct vision. Throughout the procedure, the patient's blood pressure, pulse, and oxygen saturations were monitored continuously. The Endoscope was introduced through the mouth, and advanced to the second part of duodenum. The upper GI endoscopy was accomplished without difficulty. The patient tolerated the procedure well. Scope In: 9:47:52 AM Scope Out: 9:50:08 AM Total Procedure Duration Time 0 hours 2 minutes 16 seconds Findings: The esophagus was normal. The stomach was normal. The examined duodenum was normal. Impression: - Normal esophagus. - Normal stomach. - Normal examined duodenum. - No specimens collected. Recommendation: - Discharge patient to home. - Resume previous diet. - Continue present medications. - Resume Coumadin (warfarin) at prior dose today. Procedure Code(s): --- Professional --- 03416, Esophagogastroduodenoscopy, flexible, transoral; diagnostic, including collection of specimen(s) by brushing or washing, when performed (separate procedure) Diagnosis Code(s): --- Professional --- K92.1, Melena (includes Hematochezia) CPT copyright 2017 [employer]. All rights reserved. The codes documented in this report are preliminary and upon market relationship manager review may be revised to meet current compliance requirements. Jovan Webb MD 07/15/2020 9:54:19 AM This report has been signed electronically. Number of Addenda: 0 Note Initiated On: 07/15/2020 9:41 AM
[2020-07-15 09:55] VITALS: BP 116/46; BP 153/56; PULSE 60; RESP 16; TEMP 36.2; O2SAT 96
--- NOTE | 2020-07-15 09:55 | OP.CCLET_ITS ---
07/15/2020 Bird Garza MD [address] [phone] Re : Upper GI endoscopy procedure for Anh Brito Dear Dr. Garza This procedure was performed on Wednesday, July 15, 2020. My impressions and recommendations are as follows: Impressions : - Normal esophagus. - Normal stomach. - Normal examined duodenum. - No specimens collected. Recommendations : - Discharge patient to home. - Resume previous diet. - Continue present medications. - Resume Coumadin (warfarin) at prior dose today. My findings are described in the full procedure note, which is enclosed. If I can be of further assistance, please feel free to contact me at Doctor phone number(s): , Work: . Sincerely, Jovan Webb MD 07/15/2020 9:54:19 AM This report has been signed electronically.
[2020-07-15 10:00] VITALS: BP 111/47; BP 153/56; PULSE 60; RESP 16; O2SAT 99
[2020-07-15 10:05] VITALS: BP 128/56; BP 153/56; PULSE 61; RESP 16; O2SAT 97
[2020-07-15 10:11] VITALS: BP 134/57; BP 153/56; PULSE 60; RESP 16; O2SAT 98
[2020-07-15 10:46] VITALS: BP 153/56
== END 2020-07-15 10:47 | disposition home or self-care (01) ==
LOC: EN 08:30 → AC 08:31
PROVIDERS: Anesthesiology; PCP Family Medicine; Referring Provider Family Medicine; Visit Provider Surgery
PROC: 0DJ08ZZ Inspection of Upper Intestinal Tract, Via Natural or Artificial Opening Endoscopic (ICD-10-PCS; CPT 43235; principal; 2020-07-15 10:25)
DX: K92.1 Melena (principal); Z20.828 Contact with and (suspected) exposure to other viral communicable diseases; Z79.82 Long term (current) use of aspirin; Z79.899 Other long term (current) drug therapy; Z79.01 Long term (current)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; I10 Essential (primary) hypertension; G47.33 Obstructive sleep apnea (adult) (pediatric); E78.5 Hyperlipidemia, unspecified; E11.9 Type 2 diabetes mellitus without complications; I27.21 Secondary pulmonary arterial hypertension; E66.9 Obesity, unspecified; Z68.42 Body mass index [BMI] 45.0-49.9, adult; E03.9 Hypothyroidism, unspecified; M06.9 Rheumatoid arthritis, unspecified; Z95.0 Presence of cardiac pacemaker
CPT/HCPCS: 43235; 36416; 85610; 87635; C9803; J7120; J2405; U0003

== ENCOUNTER → 2020-08-01 12:43 | Outpatient (CLI) | payer MEDICARE, OTHER, SELFPAY ==
[2020-06-26 13:52] VITALS: BMI 47.8
[2020-07-15 08:53] VITALS: BMI 45.8
--- NOTE | 2020-08-01 15:09 | PFTCOMP_ITS ---
COMPLETE PULMONARY FUNCTION TEST INTERPRETATION Brief HPI: Patient is a 70 year old female, currently under the care of myself, who presents to [facility] for complete pulmonary function tests secondary to diagnosis of rheumatoid arthritis. Respiratory therapist reports good effort and reproducible results. Interpretation: Forced expiration spirometry shows no large airways obstructive ventilatory defect with an FEV1 of 80% predicted. There is no significant bronchodilator response by strict ATS criteria. Spirograms are of good quality and plateau normally. The respiratory flow volume loop shows a normal pattern. Lung volumes by body plethysmography show a decreased total lung capacity at 4.42 L, 76% predicted. All other lung volumes are reduced symmetrically. Diffusion capacity by carbon monoxide is at the lower limit of normal at 71% predicted. The airway resistance is normal. Compared to previous pulmonary function tests from 01/26/2017, there has been a significant improvement in total lung capacity by 20%. Impression: Mild restrictive ventilatory defect with symmetric improvement compared to 2017.
== END ==
PROVIDERS: PCP Family Medicine; Referring Provider Internal Medicine Critical Care Medicine; Visit Provider Internal Medicine Critical Care Medicine
DX: M06.9 Rheumatoid arthritis, unspecified (principal)
CPT/HCPCS: 94060; 94726; 94729

== ENCOUNTER → 2020-08-27 09:35 | Outpatient (CLI) | payer MEDICARE, OTHER, SELFPAY ==
[2020-08-27 10:50] LABS: Anion Gap 2 (5-15); BUN 19 mg/dL (7-18); BUN/Creat Ratio 17.6 RATIO (10-20); Calcium,Total 8.9 mg/dL (8.5-10.1); Chloride 107 mmol/L (98-107); Cholesterol 232 mg/dL (200); Creatinine, Serum 1.08 mg/dL (0.55-1.02); EST Glomerular Filtration Rate 53 mL/min (>60); Est Glom Filt Rate - Afr Amer 65 mL/min (>60); Free T3 2.4 pg/mL (2.18-3.98); Glucose 102 mg/dL (74-106); High Density Lipoprotein 59 mg/dL; Potassium 4.2 mmol/L (3.5-5.1); Sodium Level 142 mmol/L (136-145); Thyroid Stim Hormone (TSH) 3.82 uIU/mL (0.358-3.74); Triglycerides 127 mg/dL; Very Low Density Lipoprotein 25 mg/dL (5-40)
== END ==
PROVIDERS: PCP Family Medicine; Referring Provider Family Medicine; Visit Provider Family Medicine
DX: I10 Essential (primary) hypertension (principal); E03.9 Hypothyroidism, unspecified
CPT/HCPCS: 36415; 80048; 80061; 84443; 84481

== ENCOUNTER → 2020-09-08 12:30 | Outpatient (CLI) | payer MEDICARE, OTHER, SELFPAY | PROVIDERS: PCP Family Medicine; Referring Provider Family Medicine; Visit Provider Family Medicine | DX: Z20.828 Contact with and (suspected) exposure to other viral communicable diseases (principal) | CPT/HCPCS: 87635; U0003 ==

== ENCOUNTER 2020-11-10 16:20 | Outpatient (RCR) | payer MEDICARE, OTHER, SELFPAY ==
[2020-11-10 17:32] LABS: Absolute Lymphocyte Count 1.36 X10^3/uL (0.83-4.51); Absolute Neutrophil Count 6.8 X10^3/uL (2.0-7.7); Basophil# 0.05 X10^3/uL; Basophil% 0.6 % (0-1); Eosinophil# 0.07 X10^3/uL; Eosinophils% 0.8 % (0-5); Hematocrit 38.1 % (37-47); Hemoglobin 11.9 g/dL (12.0-15.0); Lymphocyte # 1.36 X10^3/ul (4.0); Lymphocyte % 15.4 % (19-41); Mean Corp Hgb Conc 31.2 g/dL (32-36); Mean Corpuscular Hgb 31.7 pg (27.0-32.0); Mean Corpuscular Volume 101.6 fL (81-99); Mean Platelet Vol. 10.3 fl (6.2-12.0); Monocyte# 0.51 X10^3/uL; Monocyte% 5.8 % (0-10); NRBC Flagged by Analyzer 0 % (0-5); Neutrophil # 6.82 X10^3/uL (2.7-7.7); Neutrophil % 77.2 % (47-70); Platelet Count 221 K/mm3 (150-450); RBC Distribution Width CV 15.3 % (11.6-14.6); RBC Distribution Width SD 57.5 fl (35.1-43.9); Red Blood Count 3.75 M/mm3 (4.2-5.4); White Blood Count 8.8 K/mm3 (4.4-11.0)
[2020-11-10 17:39] LABS: Erythrocyte Sedimentation Rate 9 mm/hr (0-30)
[2020-11-10 18:09] LABS: AST(SGOT) 32 U/L (15-37); Alanine Aminotransfer ALT/SGPT 41 U/L (13-56); Albumin, Serum 3.9 g/dL (3.2-5.0); BUN 23 mg/dL (7-18)
[2020-11-11 08:22] LABS: Creatinine, Serum 1.18 mg/dL (0.55-1.02); EST Glomerular Filtration Rate 48 mL/min (>60); Est Glom Filt Rate - Afr Amer 58 mL/min (>60)
== END 2020-11-10 18:00 | disposition home or self-care (01) ==
LOC: LAB 16:20
PROVIDERS: Family Provider Family Medicine; PCP Family Medicine; Referring Provider Internal Medicine; Visit Provider Internal Medicine
DX: M05.79 Rheumatoid arthritis with rheumatoid factor of multiple sites without organ or systems involvement (principal)
CPT/HCPCS: 36415; 82040; 82565; 84450; 84460; 84520; 85025; 85652; 86140

== ENCOUNTER → 2021-02-26 09:50 | Outpatient (CLI) | payer MEDICARE, OTHER, SELFPAY ==
[2021-02-26 11:00] LABS: Anion Gap 5 (5-15); BUN 30 mg/dL (7-18); BUN/Creat Ratio 20.5 RATIO (10-20); Calcium,Total 9.1 mg/dL (8.5-10.1); Chloride 105 mmol/L (98-107); Cholesterol 229 mg/dL (200); Creatinine, Serum 1.46 mg/dL (0.55-1.02); EST Glomerular Filtration Rate 38 mL/min (>60); Est Glom Filt Rate - Afr Amer 46 mL/min (>60); Free T3 2.6 pg/mL (2.18-3.98); Glucose 101 mg/dL (74-106); High Density Lipoprotein 62 mg/dL; Potassium 4.5 mmol/L (3.5-5.1); Sodium Level 140 mmol/L (136-145); T4 Free Direct 1.14 ng/dL (0.76-1.46); Thyroid Stim Hormone (TSH) 2.89 uIU/mL (0.358-3.74); Triglycerides 100 mg/dL; Very Low Density Lipoprotein 20 mg/dL (5-40)
== END ==
PROVIDERS: PCP Family Medicine; Referring Provider Family Medicine; Visit Provider Family Medicine
DX: I10 Essential (primary) hypertension (principal); E03.9 Hypothyroidism, unspecified
CPT/HCPCS: 36415; 80048; 80061; 84439; 84443; 84481

== ENCOUNTER → 2021-07-29 08:38 | Outpatient (CLI) | payer MEDICARE, OTHER, SELFPAY ==
--- NOTE | 2021-07-29 08:41 | ECHOCS_ITS ---
Reason For Study: Dyspnea/SOB Procedure This was a 2D Doppler, Color Flow transthoracic echocardiogram. The study was technically difficult. Contrast injection was performed. Exam performed in department. Left Ventricle Based upon the 2D echocardiographic and contrast enhanced images obtained there appears to be grossly normal left ventricular size, wall motion, and systolic function. The estimated ejection fraction is 55 %. Right Ventricle Normal RV size. ICD or pacer leads identified within the right ventricle. Normal systolic function. Atria The left atrium is mildly enlarged. Normal right atrium. ICD or pacer leads identified within the right atrium. No doppler evidence for ASD. Mitral Valve There is moderate mitral annular calcification. Extension of the mitral annular calcification on the base of the posterior mitral valve leaflet. Mild (1+) mitral valve insufficiency. Tricuspid Valve Normal tricuspid valve. Mild tricuspid valve insufficiency. Right ventricular systolic pressure estimated to be 37 mmHg. Aortic Valve Mild aortic stenosis. Stable appearing bioprosthetic aortic valve apparatus. Trivial transvalvular insufficiency of the aortic valve. Pulmonic Valve The pulmonic valve is not well visualized. Great Vessels Normal sized aortic root. Pericardium/Pleural No pericardial effusion. Medication Diluted definity 2ml given slow IV push to enhance endocardial definition. MMode/2D Measurements & Calculations LVIDd: 5.3 cm IVSd: 0.83 cm LVOT diam: 1.9 cm LVIDs: 3.8 cm LVPWd: 0.97 cm RVDd: 3.6 cm FS: 28.3 % LVOT area: 3.0 cm2 Ao root diam: 2.8 cm LAV(MOD-bp): 66.9 ml LVAd ap4: 30.2 cm2 LAV(MOD-bp) Indexed: 36.2 ml/m2 LVLd ap4: 7.2 cm LAV(MOD-sp2): 52.8 ml EDV(MOD-sp4): 103.7 ml LAV(MOD-sp4): 81.4 ml EDV(sp4-el): 107.6 ml LVAs ap4: 18.7 cm2 LVLs ap4: 6.1 cm ESV(MOD-sp4): 48.0 ml ESV(sp4-el): 48.5 ml EF(MOD-sp4): 53.7 % EF(sp4-el): 55.0 % SV(MOD-sp4): 55.7 ml SV(sp4-el): 59.1 ml LA A4 area: 25.3 cm2 LA dimension(2D): 5.1 cm RA A4 area: 12.9 cm2 Doppler Measurements & Calculations MV E max spike: 131.0 cm/sec Lat Peak E' Spike: 9.6 cm/sec Med Peak E' Spike: 5.7 cm/sec MV A max spike: 71.7 cm/sec E/E' lat: 13.6 E/E' med: 23.1 MV E/A: 1.8 Ao V2 max: 249.2 cm/sec AI max spike: 348.6 cm/sec LV V1 max: 149.7 cm/sec Ao max P.9 mmHg AI max P.6 mmHg LV V1 max P.0 mmHg Ao V2 mean: 181.4 cm/sec LV V1 mean P.7 mmHg Ao mean P.2 mmHg AI dec slope: 261.1 cm/sec2 LV V1 mean: 113.8 cm/sec Ao V2 VTI: 65.1 cm AI P1/2t: 391.1 msec LV V1 VTI: 41.9 cm DANA(I,D): 1.9 cm2 DANA(V,D): 1.8 cm2 SV(LVOT): 124.2 ml PA V2 max: 99.7 cm/sec TR max spike: 293.3 cm/sec TR max P.4 mmHg ECHO/Echo Complete W/ Contrast Interpretation Summary The study was technically difficult. Contrast injection was performed. Based upon the 2D echocardiographic and contrast enhanced images obtained there appears to be grossly normal left ventricular size, wall motion, and systolic function. The estimated ejection fraction is 55 %. The left atrium is mildly enlarged. There is moderate mitral annular calcification. Extension of the mitral annular calcification on the base of the posterior mitr al valve leaflet. Mild (1+) mitral valve insufficiency. Mild tricuspid valve insufficiency. Stable appearing bioprosthetic aortic valve apparatus. Mild aortic stenosis. Trivial transvalvular insufficiency of the aortic valve. Right ventricular systolic pressure estimated to be 37 mmHg. Transmitral diastolic flow velocities suggest diastolic dysfunction (pseudonorm al pattern). Ordering Physician: Melodie Ovalle Referring Physician: Bird Garza Performed By: Francesca Macdonald, FELIX, RVT
--- NOTE | 2021-07-29 08:41 | CDU_ITS ---
Reason For Study: DIZZINESS Rt. Velocities/BP Lt. Velocities/BP Prox CCA 72.9/12.9 cm/sec. Prox CCA 60.1/15.7 cm/sec. Mid CCA 83.3/11.6 cm/sec. Mid CCA 59.1/14.7 cm/sec. Dist CCA 72.0/13.3 cm/sec. Dist CCA 62.0/16.6 cm/sec. Prox ICA 129.5/16.3 cm/sec. Prox ICA 80.9/18.2 cm/sec. Mid ICA 83.4/12.2 cm/sec. Mid ICA 72.1/20.4 cm/sec. Dist ICA 85.1/21.2 cm/sec. Dist ICA 100.2/26.5 cm/sec. Rt. ICA/CCA = 129.5/83.3=1.6. Lt. ICA/CCA = 100.2/59.1=1.7. Prox ECA 79.8/5.5 cm/sec. Prox ECA 60.1/12.8 cm/sec. Rt. Vert. 61.0/11.9 cm/sec. Lt. Vert. 52.3/12.7 cm/sec. Right Extracranial There is intimal thickening but no significant atherosclerotic plaque noted in the right common carotid artery. There is heterogeneous, irregular atherosclerotic plaque noted in the right internal carotid artery. There is heterogeneous, irregular atherosclerotic plaque noted in the right external carotid artery. Antegrade flow is noted in the right vertebral artery. There is heterogeneous, irregular atherosclerotic plaque noted in the right bulb. Left Extracranial There is intimal thickening but no significant atherosclerotic plaque noted in the left common carotid artery. There is heterogeneous, irregular atherosclerotic plaque noted in the left internal carotid artery. The tortuous nature of the left internal carotid artery may result in flow velocities overestimating the degree of stenosis. There is heterogeneous, irregular atherosclerotic plaque noted in the left external carotid artery. Antegrade flow is noted in the left vertebral artery. There is heterogeneous, irregular atherosclerotic plaque noted in the left bulb. Procedure Carotid Duplex 16877. This is a Carotid Duplex examination using B-mode, color flow and specral Doppler. Exam performed in department. VL/Carotid Duplex Ultrasound Interpretation Summary Irregular calcific plaque of the proximal right internal and external carotid a rteries as well as the right carotid bulb. 50 to 69% stenosis of the right internal carotid Less than 50% stenosis right external carotid artery Irregular calcific plaque at the proximal left internal carotid artery with tor tuosity of the left internal carotid artery noted. Less than 50% stenosis left internal carotid artery Less than 50% stenosis left external carotid artery Patent antegrade vertebral arteries bilaterally Slight progression of disease involving the right internal carotid artery since the prior examination of September 27, 2018 Ordering Physician: Melodie Ovalle Referring Physician: Bird Garza Performed By: Andria Garcia, FELIX, RVT
== END ==
PROVIDERS: PCP Family Medicine; Referring Provider Nurse Practitioner Gerontology; Visit Provider Nurse Practitioner Gerontology
DX: R42 Dizziness and giddiness (principal); I35.0 Nonrheumatic aortic (valve) stenosis; R06.00 Dyspnea, unspecified; R06.02 Shortness of breath
CPT/HCPCS: 93306; 93880; Q9957; A4216; C8929

== ENCOUNTER 2021-09-24 11:43 | Outpatient (CLI) | payer MEDICARE, OTHER, SELFPAY | END 2021-09-24 23:59 | disposition short-term general hospital (02) | LOC: MFPLAB 11:45 | PROVIDERS: PCP Family Medicine; Referring Provider Family Medicine; Visit Provider Family Medicine | DX: I10 Essential (primary) hypertension (principal); M06.9 Rheumatoid arthritis, unspecified; E03.9 Hypothyroidism, unspecified ==

== ENCOUNTER 2021-09-30 11:00 | Outpatient (CLI) | payer MEDICARE, OTHER, SELFPAY ==
[2021-09-30 11:53] LABS: Absolute Lymphocyte Count 1.52 X10^3/uL (0.83-4.51); Absolute Neutrophil Count 3.9 X10^3/uL (2.0-7.7); Basophil# 0.05 X10^3/uL; Basophil% 0.8 % (0-1); Eosinophil# 0.08 X10^3/uL; Eosinophils% 1.3 % (0-5); Hematocrit 37.6 % (37-47); Lymphocyte # 1.52 X10^3/ul (0.83-4.51); Lymphocyte % 25.3 % (19-41); Mean Corp Hgb Conc 31.9 g/dL (32-36); Mean Corpuscular Hgb 31.4 pg (27.0-32.0); Mean Corpuscular Volume 98.4 fL (81-99); Mean Platelet Vol. 10.5 fl (6.2-12.0); Monocyte# 0.48 X10^3/uL; NRBC Flagged by Analyzer 0 % (0-5); Neutrophil # 3.86 X10^3/uL (2.7-7.7); Neutrophil % 64.4 % (47-70); Platelet Count 144 K/mm3 (150-450); RBC Distribution Width CV 13.2 % (11.6-14.6); RBC Distribution Width SD 47.4 fl (35.1-43.9); Red Blood Count 3.82 M/mm3 (4.2-5.4)
[2021-09-30 12:30] LABS: Anion Gap 5 (5-15); BUN 28 mg/dL (7-18); Calcium,Total 9.1 mg/dL (8.5-10.1); Chloride 106 mmol/L (98-107); Cholesterol 126 mg/dL (200); Creatinine, Serum 1.27 mg/dL (0.55-1.02); EST Glomerular Filtration Rate 44 mL/min (>60); Est Glom Filt Rate - Afr Amer 53 mL/min (>60); Free T3 2.5 pg/mL (2.18-3.98); Glucose 104 mg/dL (74-106); High Density Lipoprotein 57 mg/dL; Potassium 4.5 mmol/L (3.5-5.1); Sodium Level 142 mmol/L (136-145); T4 Free Direct 1.09 ng/dL (0.76-1.46); Thyroid Stim Hormone (TSH) 2.51 uIU/mL (0.358-3.74); Triglycerides 82 mg/dL; Very Low Density Lipoprotein 16 mg/dL (5-40)
== END 2021-09-30 23:59 | disposition short-term general hospital (02) ==
LOC: LAB 11:04
PROVIDERS: PCP Family Medicine; Referring Provider Family Medicine; Visit Provider Family Medicine
DX: I10 Essential (primary) hypertension (principal); M06.9 Rheumatoid arthritis, unspecified; E03.9 Hypothyroidism, unspecified
CPT/HCPCS: 80048; 80061; 84439; 84443; 84481; 85025

== ENCOUNTER 2021-10-07 14:27 | Outpatient (CLI) | payer MEDICARE, OTHER, SELFPAY ==
[2021-10-07 16:14] LABS: Erythrocyte Sedimentation Rate 16 mm/hr (0-30)
== END 2021-10-07 23:59 | disposition short-term general hospital (02) ==
LOC: LAB 14:30
PROVIDERS: PCP Family Medicine; Visit Provider Family Medicine
DX: M06.9 Rheumatoid arthritis, unspecified (principal)
CPT/HCPCS: 36415; 85652

== ENCOUNTER → 2022-01-25 | Outpatient (CLI) | payer MEDICARE, OTHER, SELFPAY ==
--- NOTE | 2022-01-25 08:42 | CDU_ITS ---
Reason For Study: Dizziness Rt. Velocities/BP Lt. Velocities/BP Prox CCA 61.7/12.1 cm/sec. Prox CCA 79/12.7 cm/sec. Mid CCA 74.7/13.4 cm/sec. Mid CCA 70.4/12.6 cm/sec. Dist CCA 72.1/9.5 cm/sec. Dist CCA 56.9/11.4 cm/sec. Prox ICA 128.4/15.2 cm/sec. Prox ICA 88.2/17 cm/sec. Mid ICA 80.9/11.5 cm/sec. Mid ICA 64.5/11.5 cm/sec. Dist ICA 91.9/17 cm/sec. Dist ICA 106.5/18.8 cm/sec. Rt. ICA/CCA = 1.78. Lt. ICA/CCA = 1.51. Prox ECA 104.7/7.9 cm/sec. Prox ECA 135.7/6 cm/sec. Rt. Vert. 52/10.2 cm/sec. Lt. Vert. 49.5/9 cm/sec. Right Extracranial There is intimal thickening but no significant atherosclerotic plaque noted in the right common carotid artery. There is heterogeneous, irregular atherosclerotic plaque noted in the right internal carotid artery. There is heterogeneous, irregular atherosclerotic plaque noted in the right external carotid artery. Antegrade flow is noted in the right vertebral artery. Left Extracranial There is intimal thickening but no significant atherosclerotic plaque noted in the left common carotid artery. There is heterogeneous, irregular atherosclerotic plaque noted in the left internal carotid artery. There is heterogeneous, irregular atherosclerotic plaque noted in the left external carotid artery. Antegrade flow is noted in the left vertebral artery. Procedure Carotid Duplex [id number]. This is a Carotid Duplex examination using B-mode, color flow and specral Doppler. Exam performed in department. VL/Carotid Duplex Ultrasound Interpretation Summary Irregular calcific plaque with shadowing at the proximal right internal carotid artery with 50 to 69% stenosis Less than 50% stenosis right external carotid artery Irregular calcific plaque at the proximal left internal carotid artery with les s than 50% stenosis Less than 50% stenosis left external carotid artery Patent and antegrade vertebral arteries bilaterally No change from the previous examination of July 29, 2021 Ordering Physician: Bird Chery Referring Physician: Bird Garza Performed By: Rowena Liz RVT
== END | disposition home or self-care (01) ==
LOC: CVS 08:40
PROVIDERS: PCP Family Medicine; Referring Provider Internal Medicine Cardiovascular Disease; Visit Provider Internal Medicine Cardiovascular Disease
DX: I77.9 Disorder of arteries and arterioles, unspecified (principal); I65.21 Occlusion and stenosis of right carotid artery; R42 Dizziness and giddiness
CPT/HCPCS: 93880

== ENCOUNTER → 2022-03-24 | Outpatient (CLI) | payer MEDICARE, OTHER, SELFPAY ==
[2022-03-24 17:46] LABS: Erythrocyte Sedimentation Rate 12 mm/hr (0-30)
[2022-03-24 18:15] LABS: Anion Gap 3 (5-15); BUN 23 mg/dL (7-18); BUN/Creat Ratio 13.1 RATIO (10-20); CRP 5.09 mg/L (0.0-3.0); Calcium,Total 9.4 mg/dL (8.5-10.1); Chloride 107 mmol/L (98-107); Cholesterol 221 mg/dL (200); Creatinine, Serum 1.76 mg/dL (0.55-1.02); EST Glomerular Filtration Rate 30 mL/min (>60); Est Glom Filt Rate - Afr Amer 37 mL/min (>60); Free T3 2.3 pg/mL (2.18-3.98); Glucose 97 mg/dL (74-106); High Density Lipoprotein 55 mg/dL; Potassium 4.6 mmol/L (3.5-5.1); Sodium Level 140 mmol/L (136-145); T4 Free Direct 1.35 ng/dL (0.76-1.46); Thyroid Stim Hormone (TSH) 1.92 uIU/mL (0.358-3.74); Triglycerides 106 mg/dL; Very Low Density Lipoprotein 21 mg/dL (5-40)
== END | disposition home or self-care (01) ==
LOC: MFPLAB 14:41
PROVIDERS: PCP Family Medicine; Visit Provider Family Medicine
DX: M06.9 Rheumatoid arthritis, unspecified (principal); E03.9 Hypothyroidism, unspecified; I10 Essential (primary) hypertension
CPT/HCPCS: 36415; 80048; 80061; 84439; 84443; 84481; 85652; 86140

== ENCOUNTER 2022-06-28 11:40 | Outpatient (RCR) | payer MEDICARE, OTHER, SELFPAY ==
[2022-06-28 13:17] LABS: International Normalized Ratio 1.4; Prothrombin Time (Protime)PT. 16.7 SECONDS (11.7-14.9)
[2022-06-28 13:48] LABS: Anion Gap 6 (5-15); BUN 19 mg/dL (7-18); BUN/Creat Ratio 15.2 RATIO (10-20); Calcium,Total 9.3 mg/dL (8.5-10.1); Chloride 103 mmol/L (98-107); Creatinine, Serum 1.25 mg/dL (0.55-1.02); EST Glomerular Filtration Rate 45 mL/min (>60); Est Glom Filt Rate - Afr Amer 54 mL/min (>60); Glucose 88 mg/dL (74-106); Potassium 3.9 mmol/L (3.5-5.1); Sodium Level 141 mmol/L (136-145)
== END 2022-06-28 18:00 | disposition home or self-care (01) ==
LOC: LAB 11:40
PROVIDERS: PCP Family Medicine; Visit Provider Nurse Practitioner Family
DX: R60.9 Edema, unspecified (principal); I48.0 Paroxysmal atrial fibrillation; Z79.01 Long term (current)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
CPT/HCPCS: 36415; 80048; 85610

== ENCOUNTER → 2022-08-05 | Outpatient (CLI) | payer MEDICARE, OTHER, SELFPAY ==
--- NOTE | 2022-08-05 12:41 | ECHOD_ITS ---
Version 2 Reason For Study: AVR Procedure This was a 2D Doppler, Color Flow transthoracic echocardiogram. The study was technically difficult. Exam performed in department. Left Ventricle Normal LV size. Left ventricular systolic function is normal. The estimated ejection fraction is 55 %. Stage 3 diastolic dysfunction. No regional wall motion abnormalities noted. Right Ventricle Normal RV size. ICD or pacer leads identified within the right ventricle. Normal systolic function. Atria The left atrium is moderately enlarged. Normal right atrium. ICD or pacer leads identified within the right atrium. No doppler evidence for ASD. Mitral Valve There is moderate mitral annular calcification. Extension of the mitral annular calcification onto the base of the posterior mitral valve leaflet. Mild focal mitral valve calcification of the anterior leaflet. The mitral valve chordae are thickened and/or calcified. Moderate (2+) mitral valve insufficiency. Tricuspid Valve Normal tricuspid valve. Moderate (2+) tricuspid valve insufficiency. Right ventricular systolic pressure estimated to be 34 mmHg. Aortic Valve Mild aortic stenosis. Stable appearing bioprosthetic aortic valve apparatus. Mild transvalvular insufficiency of the aortic valve. Pulmonic Valve The pulmonic valve is not well visualized. Trivial pulmonic valve insufficiency. Great Vessels Normal sized aortic root. Pericardium/Pleural No pericardial effusion. MMode/2D Measurements & Calculations LVIDd: 4.9 cm IVSd: 0.97 cm LVOT diam: 1.9 cm LVIDs: 3.7 cm LVPWd: 0.94 cm LVOT area: 2.9 cm2 RVDd: 3.5 cm FS: 25.1 % Ao root diam: 3.1 cm LAV(MOD-bp): 71.6 ml LVAd ap4: 28.3 cm2 LAV(MOD-bp) Indexed: 40.1 ml/m2 LVLd ap4: 7.4 cm LAV(MOD-sp2): 43.6 ml EDV(MOD-sp4): 91.9 ml LAV(MOD-sp4): 89.9 ml EDV(sp4-el): 92.3 ml LVAs ap4: 19.1 cm2 LVLs ap4: 6.3 cm ESV(MOD-sp4): 50.8 ml ESV(sp4-el): 49.5 ml EF(MOD-sp4): 44.7 % EF(sp4-el): 46.4 % LVAd ap2: 29.8 cm2 SV(MOD-sp4): 41.1 ml SV(MOD-sp2): 57.6 ml LVLd ap2: 7.8 cm EDV(MOD-sp2): 97.7 ml EDV(sp2-el): 97.3 ml LVAs ap2: 17.5 cm2 LVLs ap2: 6.6 cm ESV(MOD-sp2): 40.1 ml ESV(sp2-el): 39.2 ml EF(MOD-sp2): 58.9 % SV(sp4-el): 42.9 ml LA dimension(2D): 4.2 cm LA A4 area: 27.7 cm2 RA A4 area: 13.7 cm2 Time Measurements MV dec time: 0.24 sec Doppler Measurements & Calculations MV E max spike: 119.2 cm/sec Lat Peak E' Spike: 6.9 cm/sec Med Peak E' Spike: 7.6 cm/sec MV A max spike: 56.6 cm/sec E/E' lat: 17.2 E/E' med: 15.6 MV E/A: 2.1 Ao V2 max: 259.3 cm/sec LV V1 max: 145.5 cm/sec MV dec slope: 499.9 cm/sec2 Ao max P.9 mmHg LV V1 max P.5 mmHg Ao V2 mean: 182.9 cm/sec LV V1 mean P.3 mmHg Ao mean P.9 mmHg LV V1 mean: 110.7 cm/sec Ao V2 VTI: 66.9 cm LV V1 VTI: 41.3 cm DANA(I,D): 1.8 cm2 DANA(V,D): 1.6 cm2 SV(LVOT): 119.6 ml PA V2 max: 114.2 cm/sec TR max spike: 277.0 cm/sec PA V2 mean: 77.2 cm/sec TR max P.9 mmHg ECHO/Echo Complete Interpretation Summary Left ventricular systolic function is normal. The estimated ejection fraction is 55 %. The left atrium is moderately enlarged. There is moderate mitral annular calcification. Extension of the mitral annular calcification onto the base of the posterior mi tral valve leaflet. Mild focal mitral valve calcification of the anterior leaflet. The mitral valve chordae are thickened and/or calcified. Moderate (2+) mitral valve insufficiency. Moderate (2+) tricuspid valve insufficiency. Stable appearing bioprosthetic aortic valve apparatus. Mild aortic stenosis. Mild transvalvular insufficiency of the aortic valve. Trivial pulmonic valve insufficiency. Right ventricular systolic pressure estimated to be 34 mmHg. Stage 3 diastolic dysfunction. ICD or pacer leads identified within the right atrium ICD or pacer leads identified within the right ventricle. Ordering Physician: Bird Chery Referring Physician: Bird Garza Performed By: Christina Stanley LAURA
== END | disposition home or self-care (01) ==
LOC: CVS 12:40
PROVIDERS: PCP Family Medicine; Referring Provider Internal Medicine Cardiovascular Disease; Visit Provider Internal Medicine Cardiovascular Disease
DX: I35.0 Nonrheumatic aortic (valve) stenosis (principal); I49.5 Sick sinus syndrome; I48.0 Paroxysmal atrial fibrillation; R06.00 Dyspnea, unspecified; I10 Essential (primary) hypertension; R00.2 Palpitations; E78.00 Pure hypercholesterolemia, unspecified; Z95.0 Presence of cardiac pacemaker
CPT/HCPCS: 93306

== ENCOUNTER → 2022-08-18 | Outpatient (CLI) | payer MEDICARE, OTHER, SELFPAY ==
[2022-08-18 15:20] LABS: Absolute Lymphocyte Count 1.71 X10^3/uL (0.83-4.51); Absolute Neutrophil Count 4.1 X10^3/uL (2.0-7.7); Basophil# 0.04 X10^3/uL; Basophil% 0.6 % (0-1); Eosinophil# 0.05 X10^3/uL; Eosinophils% 0.8 % (0-5); Hematocrit 41.5 % (37-47); Hemoglobin 12.9 g/dL (12.0-15.0); Lymphocyte # 1.71 X10^3/ul (0.83-4.51); Lymphocyte % 26.2 % (19-41); Mean Corp Hgb Conc 31.1 g/dL (32-36); Mean Corpuscular Hgb 30.4 pg (27.0-32.0); Mean Corpuscular Volume 97.6 fL (81-99); Monocyte# 0.64 X10^3/uL; Monocyte% 9.8 % (0-10); NRBC Flagged by Analyzer 0 % (0-5); Neutrophil # 4.07 X10^3/uL (2.7-7.7); Neutrophil % 62.3 % (47-70); Platelet Count 174 K/mm3 (150-450); RBC Distribution Width CV 14.6 % (11.6-14.6); RBC Distribution Width SD 52.8 fl (35.1-43.9); Red Blood Count 4.25 M/mm3 (4.2-5.4); White Blood Count 6.5 K/mm3 (4.4-11.0)
== END | disposition home or self-care (01) ==
LOC: MFPLAB 12:03
PROVIDERS: PCP Family Medicine; Referring Provider Family Medicine; Visit Provider Family Medicine
DX: K92.1 Melena (principal)
CPT/HCPCS: 36415; 85025

== ENCOUNTER → 2022-09-23 | Outpatient (CLI) | payer MEDICARE, SELFPAY ==
[2022-09-23 16:35] LABS: Anion Gap 4 (5-15); BUN 25 mg/dL (7-18); BUN/Creat Ratio 16.8 RATIO (10-20); Calcium,Total 9.1 mg/dL (8.5-10.1); Chloride 106 mmol/L (98-107); Cholesterol 186 mg/dL (200); Creatinine, Serum 1.49 mg/dL (0.55-1.02); EST Glomerular Filtration Rate 37 mL/min (>60); Est Glom Filt Rate - Afr Amer 44 mL/min (>60); Glucose 94 mg/dL (74-106); High Density Lipoprotein 64 mg/dL; Sodium Level 142 mmol/L (136-145); Thyroid Stim Hormone (TSH) 2.42 uIU/mL (0.358-3.74); Triglycerides 120 mg/dL; Very Low Density Lipoprotein 24 mg/dL (5-40)
== END | disposition home or self-care (01) ==
PROVIDERS: PCP Family Medicine; Visit Provider Family Medicine
DX: E03.9 Hypothyroidism, unspecified (principal); E11.9 Type 2 diabetes mellitus without complications
CPT/HCPCS: 36415; 80048; 80061; 84443

== ENCOUNTER 2022-10-01 08:06 | Day surgery (SDC) | payer MEDICARE, SELFPAY ==
[2022-10-01 08:41] LABS: INR Fingerstick 1.2; Prothrombin Time Fingerstick 14.5 SEC (11.7-14.9)
[2022-10-01] MEDS: Lactated Ringers 1,000 ML 15 ML IV (08:55)
[2022-10-01 08:56] VITALS: BP 160/47; PULSE 60; RESP 18; TEMP 36.4; O2SAT 100; BMI 40.4
--- NOTE | 2022-10-01 09:30 | IMM_PTH ---
PATIENT: GRACIELA KIRK LOC: EN U#:[id number] AGE/SX: 72/F ROOM: RE10/01/[address]: Dr. Jovan Webb MD : 1950 BED: DIS: 10/01/2022 SPEC #: [id number] RECD: 10/01/22 13:53 STATUS: DIANN REQ #: [id number] JAYSON: 10/01/22 09:[address]: Jovan Webb DEPT: IMMUNOHISTOCHEMISTRY RECD BY: Fauzia Mack ENTERED: 10/01/22 13:53 SP TYPE: IMMUNO OTHR DR: Dr. Bird Garza MD Tissues: A - Stomach, NOS Procedures: H Pylori (initial) PHYSICIAN & INSTITUTION [address] [id number] SPECIMEN INFORMATION: Tissue Source: A ? Gastric body biopsy Clinical Info: Blood in stool Specimen Number: [id number] CPT code: 79670 METHODOLOGY: Deparaffinized sections of prefer/formalin-fixed tissue or PAP/DQ stained slides are incubated with monoclonal/polyclonal antibodies/oligonucleotide probes. Localization is made via biotin free immunoperoxidase method. Appropriate controls are performed and reacted as expected. Results on target cell population are indicated in the following table: RESULTS: ANTIBODY / CLONE RESULT Block A H Pylori (polyclonal) negative These tests were developed and their performance characteristics determined by [facility]. They may not have been cleared or approved by the U.S. Food and Drug Administration. The FDA has determined that such clearance or approval is not necessary. The above immunohistochemical/dualISH markers are ordered and reviewed by the Pathologist. INTERPRETATION: A. Gastric polyp, biopsy: Negative for Helicobacter pylori organisms. SJ:luis alberto 10/04/2022
--- NOTE | 2022-10-01 09:30 | EGD_PTH ---
PATIENT: GRACIELA KIRK LOC: EN U#:[id number] AGE/SX: 72/F ROOM: RE10/01/[address]: Dr. Jovan Webb MD : 1950 BED: DIS: 10/01/2022 SPEC #: [id number] RECD: 10/01/22 11:49 STATUS: DIANN CHARLES #: [id number] JAYSON: 10/01/22 09:[address]: Jovan Webb DEPT: SURGICAL PATHOLOGY RECD BY: Vita Francisco ENTERED: 10/01/22 13:05 SP TYPE: EGD BIOPSY OT DR: Dr. Bird Garza MD Tissues: A - Gastric mucous membrane B - Stomach, NOS C - Cecum, NOS D - Ascending colon Procedures: Surgery Specimen Level IV HEADER OPERATION: [place] [place], polypectomy PRE-OP DIAGNOSIS: Blood in stool TISSUE SUBMITTED: A ? Gastric body biopsy for H. pylori and path, B ? Gastroesophageal junction biopsy, C ? Cecal polyp, D ? Ascending polyp MICROSCOPIC DIAGNOSIS A. Gastric body, biopsy: Mild gastritis. See microscopic description and comment. B. Gastroesophageal junction, biopsy: Fragments of gastroesophageal mucosa with chronic inflammation. Intestinal metaplasia (goblet cell metaplasia) is not identified. See comment. C. Cecal polyp, polypectomy: Fragments of tubular adenoma. D. Ascending colon polyp, polypectomy: Fragments of tubular adenoma. SJ:lusi alberto 10/04/2022 COMMENT A. The results of immunohistochemistry for Helicobacter pylori will be reported separately ([id number]). B. Alcian blue/PAS stain with matched control is used in the evaluation of the specimen. MICROSCOPIC DESCRIPTION Slides are reviewed. A. The specimen shows fragments of gastric mucosa with chronic inflammatory cell infiltrates in the lamina propria consisting of lymphocytes and plasma cells, consistent with mild chronic gastritis. GROSS DESCRIPTION A - Received in fixative is one container labeled with the patient's name and designated gastric body biopsy. The specimen consists of two irregular fragments of light osorio soft tissue that in aggregate measure 0.4 x 0.3 x 0.1 cm. The specimen is totally submitted in one cassette. B - Received in fixative is one container labeled with the patient's name and designated GE junction biopsy. The specimen consists of two irregular fragments of light osorio soft tissue that in aggregate measure 0.6 x 0.3 x 0.1 cm. The specimen is totally submitted in one cassette. C - Received in fixative is one container labeled with the patient's name and designated cecal polyp. The specimen consists of multiple irregular fragments of osorio-pink polyp that in aggregate measure 2 x 1.5 x 0.4 cm. The specimen is totally submitted in one cassette. D - Received in fixative is one container labeled with the patient's name and designated ascending polyp. The specimen consists of multiple irregular fragments of light osorio soft tissue that in aggregate measure 1 x 1 x 0.2 cm. The specimen is totally submitted in one cassette. / SJ:rg 10/01/2022 TC:1 CPT: 52205 x4, 01367
--- NOTE | 2022-10-01 10:12 | PCM.HP.BLA ---
History and Physical Date of Admission: 10/01/22 Intake Vital Signs ? 07/28/2213:01 09/03/2213:32 Height 4 ft 9 in 4 ft 9 in Weight: ? 192 lb BMI ? 41.5 BP ? 119/71 Blood Pressure Location ? Rt brachial Position ? Sitting Respiration ? 17 Pulse ? 67 Pulse Source ? Monitor Temp ? 98 F Temp Source ? Temporal Pulse Oximetry (%) ? 98 Oxygen Delivery Method ? room air Intake Visit Reasons:?CSCOPE; BLOOD IN STOOL Chief Complaint: cscope, blood in stool Is patient in pain?: No Allergies azathioprine Allergy (Severe, Verified 09/03/22 13:34) VomitingIodinated Contrast Media [Iodinated Contrast- Oral and IV Dye] Allergy (Severe, Verified 09/03/22 13:34) Hivessulfasalazine Allergy (Mild, Verified 09/03/22 13:34) Unknownamiodarone Allergy (Unknown, Verified 09/03/22 13:34) Unknownciprofloxacin HCl [From Cipro] Allergy (Verified 09/03/22 13:34) Unknowninsulin glargine, human recombin. a [From Lantus] Allergy (Verified 09/03/22 13:34) Unknownadalimumab [From Humira] Adverse Reaction (Severe, Verified 09/03/22 13:34) neck pain and tinglingleflunomide Adverse Reaction (Severe, Verified 09/03/22 13:34) vomitingprednisone Adverse Reaction (Severe, Verified 09/03/22 13:34) Visual changes, glaucomacyclobenzaprine Adverse Reaction (Intermediate, Verified 09/03/22 13:34) dizziness Medications levothyroxine 50 mcg tablet 50 mcg PO DAILY 09/21/16 [History Confirmed 07/28/22] clonazepam 1 mg tablet 1 mg PO QHS sleep 07/18/17 [History Confirmed 07/28/22] amoxicillin 500 mg tablet 500 mg PO .COMPLEX #4 tabs 12/21/18 [Rx Confirmed 07/28/22] pantoprazole 40 mg tablet,delayed release (Protonix) 40 mg PO DAILY 06/26/20 [History Confirmed 07/28/22] hydroxychloroquine 200 mg tablet 200 mg PO BID RA 07/17/21 [History Confirmed 07/28/22] methotrexate sodium 2.5 mg tablet 25 mg PO Q7D 07/17/21 [History Confirmed 07/28/22] triamcinolone acetonide 0.1 % topical cream 1 applic topical ONCE PRN 07/17/21 [History Confirmed 02/16/22] furosemide 40 mg tablet 40 mg PO DAILY #90 tabs 10/08/21 [Rx Confirmed 07/28/22] cholecalciferol (vitamin D3) 25 mcg (1,000 unit) capsule 25 mcg PO DAILY 02/16/22 [History Confirmed 07/28/22] magnesium oxide 400 mg PO BID 02/16/22 [History Confirmed 07/28/22] melatonin 10 mg capsule 10 mg PO HS PRN 02/16/22 [History Confirmed 07/28/22] diltiazem HCl 120 mg capsule,24 hr,extended release (Tiazac) 120 mg PO DAILY #90 caps 07/01/22 [Rx Confirmed 07/28/22] lisinopril 10 mg tablet 10 mg PO DAILY #90 tabs 07/01/22 [Rx Confirmed 07/28/22] warfarin 5 mg tablet 5 mg PO .COMPLEX #135 tabs 07/01/22 [Rx Confirmed 07/28/22] PFSH Medical History? Central apnea Dyspnea Edema History of Sjogren's disease Hyperlipidemia Hypertension Hypothyroidism Junctional rhythm intermediate (current)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 Non-rheumatic aortic stenosis Obesity (BMI 30.0-34.9) Obstructive sleep apnea Palpitations Postoperative atrial fibrillation Rheumatoid arthritis Secondary pulmonary arterial hypertension Sick sinus syndrome Type 2 diabetes mellitus without complications Surgical History? Bilateral carpal tunnel syndrome Cardiac pacemaker in situ (10/09/18) History of partial hysterectomy History of right and left heart catheterization (09/22/16) History of right knee joint replacement History of tonsillectomy Hx of cholecystectomy S/P AVR (aortic valve replacement) (11/28/17) Family History? Brother CAD (coronary artery disease) ?? ? CABG age 45Father CAD (coronary artery disease) ?? ? from [place] age 63Mother Hypertension CancerSister?? Cancer Myocardial infarction,? Onset Age: 45Brother Cancer ?? ? lung Social History? Smoking Status:? Never smoker alcohol intake:? current alcohol intake frequency: holidays/special occasions only Alcohol type: wine substance use type:? does not use caffeine:? No what type of physical activity do you participate in:? none seatbelt use:? always do you feel safe at home:? Yes HPI HPI HPI: Patient is a 72-year-old female here for black stools.? The patient reports he had black stools about 2 weeks ago and a few days later she had black stools again.? She denies any abdominal pain.? She has no gross blood in the stool.? No nausea or vomiting.? She has had an upper GI bleed in the past but that was from Brigid-Mullen tear.? She was started on a PPI by her PCP. ROS General General: Yes weight change and fatigue; No appetite, colon cancer, breast cancer or weakness HEENT HEENT: No difficulty swallowing, eye injury, eye surgery, swollen glands or hoarseness Endo Endocrine: Yes thyroid disease; No diabetes mellitus, thyroid cancer, Hair loss, heat intolerance or cold intolerance Skin Skin: No rash or changing moles Musc Musculoskeletal: Yes back problems, arthritis and rheumatoid arthritis; No gout or joint pain Cardio Cardiovascular: Yes murmur, pacemaker, heart disease, atrial fibrillation and high blood pressure; No heart attack, heart stent, palpitations, shortness of breat with exertion or chest pain Psych Psychiatric: Yes depression; No anxiety or hearing voices Resp Respiratory: No shortness of breath, Yes sleep apnea, No cough, No COPD, No asthma, No emphysema and No wheezing Gastro Gastrointestinal: No abdominal pain, No nausea or vomiting, No diarrhea, Yes constipation, No blood in stool, Yes acid reflux, No hemorrhoids, No ulcers, No gallbladder problem and Yes black,tarry stools Nguyễn Hematologic: Yes blood thinners and Yes anemia Neuro Neurologic: No system reviewed and no additional complaints, except as documented, No as per HPI, No abnormal gait, No abnormal hearing, No abnormal movements, No abnormal speech, No behavioral changes, No burning sensations, No confusion, No convulsions, No disequilibrium, No dizziness, No localized weakness, No frequent falls, No headache(s), No lack of coordination, No loss of vision, No memory loss, No numbness, No other visual disturbances, No radicular pain, No restless legs, No sensory deficit, No syncope, No tingling, No tremor(s), No weakness and No other Exam Const General: cooperative Orientation: alert and oriented x3 HENMT Head: normal to inspection Neck Neck: normal visual inspection and full ROM Chest Chest palpation & inspection: normal inspection of the chest Resp Effort & Inspection: normal respiratory effort Auscultation: clear to auscultation bilaterally Cardio Rate: regular rate Rhythm: regular rhythm GI Inspection: non-distended Palpation: soft and nontender Skin General: no rashes or lesions noted Neuro General: patient alert and patient oriented x3 Extrem General: full ROM Psych Appearance: grossly normal Mental Status: mental status grossly normal Assessment and Plan Assessment and Plan (1) Blood in stool: ?Status:?Acute ?Plan: Patient had 2 instances of black stools which she believes is bleeding.? Her last colonoscopy was over 10 years ago.? I recommend EGD and colonoscopy to evaluate.? I have asked her to stop her Coumadin 5 days before the procedure. I explained endoscopy in detail to the patient.? I explained the risks including but not limited to stroke or heart attack with anesthesia, perforation of the GI tract, bleeding, infection.? I explained that any of these could necessitate further emergency surgery.? The patient understands and all questions were answered sufficiently.? The patient wishes to proceed with procedure. Jovan Webb MD Pager: [facility] [address] [place] [address], [address] [place] [phone] Office: I have examined the patient and the H&P has been reviewed. There are no clinical changes since date of exam.
--- NOTE | 2022-10-01 10:54 | OP.CCLET_ITS ---
10/01/2022 Bird Garza MD [address] [place] [address] Re : Upper GI endoscopy procedure for Anh Brito Dear Dr. Garza This procedure was performed on Saturday, October 01, 2022. My impressions and recommendations are as follows: Impressions : - Reflux esophagitis. Biopsied. - Gastritis. Biopsied. - Normal examined duodenum. Recommendations : - Discharge patient to home. - Resume previous diet. - Continue present medications. - Await pathology results. My findings are described in the full procedure note, which is enclosed. If I can be of further assistance, please feel free to contact me at Doctor phone number(s): , Work: . Sincerely, Jovan Webb MD 10/01/2022 10:53:22 AM This report has been signed electronically.
--- NOTE | 2022-10-01 10:54 | OP.EGD_ITS ---
Patient Name: Anh Brito Procedure Date: 10/01/2022 10:04 AM Date of : 1950 Age: 72 Procedure: Upper GI endoscopy Indications: Hematochezia Providers: Jovan Webb MD Medicines: Monitored Anesthesia Care Patient Profile: This is a 72 year old female. Refer to note in patient chart for documentation of history and physical. Complications: No immediate complications. Procedure: Pre-Anesthesia Assessment: - Prior to the procedure, a History and Physical was performed, and patient medications and allergies were reviewed. The patient's tolerance of previous anesthesia was also reviewed. The risks and benefits of the procedure and the sedation options and risks were discussed with the patient. All questions were answered, and informed consent was obtained. Prior Anticoagulants: The patient has taken no previous anticoagulant or antiplatelet agents. After reviewing the risks and benefits, the patient was deemed in satisfactory condition to undergo the procedure. After obtaining informed consent, the endoscope was passed under direct vision. Throughout the procedure, the patient's blood pressure, pulse, and oxygen saturations were monitored continuously. The Endoscope was introduced through the mouth, and advanced to the second part of duodenum. The upper GI endoscopy was accomplished without difficulty. The patient tolerated the procedure well. Scope In: 10:18:47 AM Scope Out: 10:21:59 AM Total Procedure Duration Time 0 hours 3 minutes 12 seconds Findings: Esophagitis with no bleeding was found. Biopsies were taken with a cold forceps for histology. Localized moderate inflammation characterized by congestion (edema) was found in the stomach. Biopsies were taken with a cold forceps for histology. The examined duodenum was normal. Impression: - Reflux esophagitis. Biopsied. - Gastritis. Biopsied. - Normal examined duodenum. Recommendation: - Discharge patient to home. - Resume previous diet. - Continue present medications. - Await pathology results. Procedure Code(s): --- Professional --- 06542, Esophagogastroduodenoscopy, flexible, transoral; with biopsy, single or multiple Diagnosis Code(s): --- Professional --- K21.0, Gastro-esophageal reflux disease with esophagitis K29.70, Gastritis, unspecified, without bleeding K92.1, Melena (includes Hematochezia) CPT copyright 2017 [employer]. All rights reserved. The codes documented in this report are preliminary and upon steam setter review may be revised to meet current compliance requirements. Jovan Webb MD 10/01/2022 10:53:22 AM This report has been signed electronically. Number of Addenda: 0 Note Initiated On: 10/01/2022 10:04 AM
[2022-10-01 10:55] VITALS: BP 108/30; BP 160/47; PULSE 60; RESP 16; TEMP 36.2; O2SAT 99
--- NOTE | 2022-10-01 10:59 | OP.COLON_ITS ---
Patient Name: Anh Brito Procedure Date: 10/01/2022 10:24 AM Date of : 1950 Age: 72 Procedure: Colonoscopy Indications: Hematochezia Providers: Jovan Webb MD Medicines: Monitored Anesthesia Care Patient Profile: This is a 72 year old female. Refer to note in patient chart for documentation of history and physical. Last Colonoscopy: several years ago. Complications: No immediate complications. Procedure: Pre-Anesthesia Assessment: - Prior to the procedure, a History and Physical was performed, and patient medications and allergies were reviewed. The patient's tolerance of previous anesthesia was also reviewed. The risks and benefits of the procedure and the sedation options and risks were discussed with the patient. All questions were answered, and informed consent was obtained. Prior Anticoagulants: The patient has taken no previous anticoagulant or antiplatelet agents. After reviewing the risks and benefits, the patient was deemed in satisfactory condition to undergo the procedure. After I obtained informed consent, the scope was passed under direct vision. Throughout the procedure, the patient's blood pressure, pulse, and oxygen saturations were monitored continuously. The Colonoscope was introduced through the anus and advanced to the cecum, identified by appendiceal orifice and ileocecal valve. The colonoscopy was performed without difficulty. The patient tolerated the procedure well. The quality of the bowel preparation was good. Scope In: 10:25:58 AM Scope Withdrawal Time 0 hours 15 minutes 11 seconds Scope Out: 10:47:03 AM Total Procedure Duration Time 0 hours 21 minutes 5 seconds Findings: A large polyp was found in the cecum. The polyp was sessile. The polyp was removed with a piecemeal technique using a hot snare. Resection was complete, and retrieval was complete. Two hemostatic clips were successfully placed. A polyp was found in the ascending colon. The polyp was sessile. The polyp was removed with a hot snare. Resection and retrieval were complete. The exam was otherwise without abnormality on direct and retroflexion views. Impression: - One large polyp in the cecum, removed piecemeal using a hot snare. Resected and retrieved. Clips were placed. - One polyp in the ascending colon, removed with a hot snare. Resected and retrieved. - The examination was otherwise normal on direct and retroflexion views. Recommendation: - Discharge patient to home. - Resume previous diet. - Continue present medications. - Await pathology results. - Repeat colonoscopy in 1 year for surveillance after piecemeal polypectomy. Procedure Code(s): --- Professional --- 21476, Colonoscopy, flexible; with removal of tumor(s), polyp(s), or other lesion(s) by snare technique Diagnosis Code(s): --- Professional --- D12.0, Benign neoplasm of cecum D12.2, Benign neoplasm of ascending colon K92.1, Melena (includes Hematochezia) CPT copyright 2017 [employer]. All rights reserved. The codes documented in this report are preliminary and upon dam tender review may be revised to meet current compliance requirements. Jovan Webb MD 10/01/2022 10:59:18 AM This report has been signed electronically. Number of Addenda: 0 Note Initiated On: 10/01/2022 10:24 AM
[2022-10-01 11:00] VITALS: BP 103/51; BP 160/47; PULSE 60; RESP 16; O2SAT 99
--- NOTE | 2022-10-01 11:00 | OP.CCLET_ITS ---
10/01/2022 Bird Garza MD [address] [place] [address] Re : Colonoscopy procedure for Anh Brito Dear Dr. Garza This procedure was performed on Saturday, October 01, 2022. My impressions and recommendations are as follows: Impressions : - One large polyp in the cecum, removed piecemeal using a hot snare. Resected and retrieved. Clips were placed. - One polyp in the ascending colon, removed with a hot snare. Resected and retrieved. - The examination was otherwise normal on direct and retroflexion views. Recommendations : - Discharge patient to home. - Resume previous diet. - Continue present medications. - Await pathology results. - Repeat colonoscopy in 1 year for surveillance after piecemeal polypectomy. My findings are described in the full procedure note, which is enclosed. If I can be of further assistance, please feel free to contact me at Doctor phone number(s): , Work: . Sincerely, Jovan Webb MD 10/01/2022 10:59:18 AM This report has been signed electronically.
[2022-10-01 11:05] VITALS: BP 122/46; BP 160/47; PULSE 60; RESP 16; O2SAT 99
[2022-10-01 11:10] VITALS: BP 121/45; BP 160/47; PULSE 60; RESP 16; TEMP 36.6; O2SAT 99
[2022-10-01 11:45] VITALS: BP 160/47
== END 2022-10-01 11:56 | disposition home or self-care (01) ==
LOC: EN 08:08 → AC 08:15
PROVIDERS: PCP Family Medicine; Referring Provider Family Medicine; Visit Provider Surgery
PROC: 0DJD8ZZ Inspection of Lower Intestinal Tract, Via Natural or Artificial Opening Endoscopic (ICD-10-PCS; CPT 45378; principal; 2022-10-01 09:25)
DX: Z12.11 Encounter for screening for malignant neoplasm of colon (principal); I48.0 Paroxysmal atrial fibrillation; D12.2 Benign neoplasm of ascending colon; D12.0 Benign neoplasm of cecum; K29.50 Unspecified chronic gastritis without bleeding; K21.00 Gastro-esophageal reflux disease with esophagitis, without bleeding; K31.7 Polyp of stomach and duodenum; K31.89 Other diseases of stomach and duodenum; G47.33 Obstructive sleep apnea (adult) (pediatric); I10 Essential (primary) hypertension; E03.9 Hypothyroidism, unspecified; Z95.0 Presence of cardiac pacemaker; Z79.01 Long term (current)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; Z79.899 Other long term (current) drug therapy; Z95.2 Presence of prosthetic heart valve
CPT/HCPCS: 45385; 43239; 36416; 85610; 88305; 88342; J7120; J2405

== ENCOUNTER → 2023-05-26 | Outpatient (CLI) | payer MEDICARE, SELFPAY ==
[2023-05-26 18:29] LABS: Anion Gap 4 (5-15); BUN 18 mg/dL (7-18); BUN/Creat Ratio 19.1 RATIO (10-20); Calcium,Total 8.9 mg/dL (8.5-10.1); Chloride 109 mmol/L (98-107); Cholesterol 157 mg/dL (200); Creatinine, Serum 0.94 mg/dL (0.55-1.02); EST Glomerular Filtration Rate 62 mL/min (>60); Est Glom Filt Rate - Afr Amer 75 mL/min (>60); Glucose 81 mg/dL (74-106); High Density Lipoprotein 60 mg/dL; Potassium 3.8 mmol/L (3.5-5.1); Sodium Level 143 mmol/L (136-145); Triglycerides 106 mg/dL; Very Low Density Lipoprotein 21 mg/dL (5-40)
== END | disposition home or self-care (01) ==
LOC: MTLAB 14:22
PROVIDERS: PCP Family Medicine; Visit Provider Family Medicine
DX: Z00.00 Encounter for general adult medical examination without abnormal findings (principal)
CPT/HCPCS: 36415; 80048; 80061

== ENCOUNTER 2023-12-30 06:53 | Day surgery (SDC) | payer MEDICARE, SELFPAY ==
[2023-12-30 07:20] VITALS: BP 134/71; PULSE 75; RESP 16; TEMP 36.2; O2SAT 99; BMI 36.3
[2023-12-30] MEDS: Lactated Ringers 1,000 ML 15 ML IV (07:32)
--- NOTE | 2023-12-30 07:54 | PCM.HP.BLA ---
History and Physical Date of Admission: 12/30/23 Intake Vital Signs 02/03/2312:59 09/02/2314:04 Height 4 ft 9 in 4 ft 9 in Weight: 180 lb BMI 38.9 BP 145/71 H Blood Pressure Location Rt brachial Position Sitting Respiration 17 Pulse 61 Pulse Source Monitor Temp 96.3 F L Temp Source Temporal Pulse Oximetry (%) 98 Oxygen Delivery Method room air Intake Visit Reasons: RECALL LETTER- SCOPE Chief Complaint: cscope, Is patient in pain?: No Allergies azathioprine Allergy (Severe, Verified 09/02/23 14:04) VomitingIodinated Contrast Media [Iodinated Contrast- Oral and IV Dye] Allergy (Severe, Verified 09/02/23 14:04) Hivessulfasalazine Allergy (Mild, Verified 09/02/23 14:04) Unknownamiodarone Allergy (Unknown, Verified 09/02/23 14:04) Unknownciprofloxacin HCl [From Cipro] Allergy (Verified 09/02/23 14:04) Unknowninsulin glargine, human recombin. a [From Lantus] Allergy (Verified 09/02/23 14:04) Unknownadalimumab [From Humira] Adverse Reaction (Severe, Verified 09/02/23 14:04) neck pain and tinglingleflunomide Adverse Reaction (Severe, Verified 09/02/23 14:04) vomitingprednisone Adverse Reaction (Severe, Verified 09/02/23 14:04) Visual changes, glaucomacyclobenzaprine Adverse Reaction (Intermediate, Verified 09/02/23 14:04) dizziness Medications levothyroxine 50 mcg tablet 50 mcg PO DAILY 09/21/16 [History Confirmed 09/02/23] clonazepam 1 mg tablet 1 mg PO QHS sleep 07/18/17 [History Confirmed 09/02/23] pantoprazole 40 mg tablet,delayed release (Protonix) 40 mg PO DAILY 06/26/20 [History Confirmed 09/02/23] hydroxychloroquine 200 mg tablet 200 mg PO BID RA 07/17/21 [History Confirmed 09/02/23] methotrexate sodium 2.5 mg tablet 25 mg PO Q7D 07/17/21 [History Confirmed 09/02/23] triamcinolone acetonide 0.1 % topical cream 1 applic topical ONCE PRN Rash 07/17/21 [History Confirmed 09/02/23] cholecalciferol (vitamin D3) 25 mcg (1,000 unit) capsule 25 mcg PO DAILY 02/16/22 [History Confirmed 09/02/23] magnesium oxide 400 mg PO BID 02/16/22 [History Confirmed 09/02/23] melatonin 10 mg capsule 10 mg PO HS PRN Sleep 02/16/22 [History Confirmed 09/02/23] lisinopril 10 mg tablet 10 mg PO DAILY #90 tabs 07/01/22 [Rx Confirmed 09/02/23] furosemide 40 mg tablet 40 mg PO DAILY #90 tabs 09/30/22 [Rx Confirmed 09/02/23] diltiazem HCl 120 mg capsule,24 hr,extended release (Tiazac) 120 mg PO DAILY #90 caps 02/02/23 [Rx Confirmed 09/02/23] warfarin 5 mg tablet 5 mg PO .COMPLEX #180 tabs 08/03/23 [Rx Confirmed 09/02/23] PFSH Medical History Anxiety BiPAP (biphasic positive airway pressure) dependence Cancer Cardiology follow-up encounter Central apnea Depression Discoloration of skin Dyspnea Edema History of atrial fibrillation History of echocardiogram History of GI bleed History of IBS History of pacemaker History of Sjogren's disease Hyperlipidemia Hypertension Hypothyroidism Injury of head and neck 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 Migraine headache Non-rheumatic aortic stenosis Non-smoker Obesity (BMI 30.0-34.9) Obstructive sleep apnea Palpitations Postoperative atrial fibrillation Rheumatoid arthritis Secondary pulmonary arterial hypertension Sick sinus syndrome Sleep apnea Thyroid disease Type 2 diabetes mellitus without complications Wears dentures Wears glasses Surgical History Bilateral carpal tunnel syndrome Cardiac pacemaker in situ (10/09/18) History of esophagogastroduodenoscopy (EGD) History of partial hysterectomy History of right and left heart catheterization (09/22/16) History of right knee joint replacement History of tonsillectomy Hx of cholecystectomy S/P AVR (aortic valve replacement) (11/28/17) Family History Brother CAD (coronary artery disease) CABG age 45Father CAD (coronary artery disease) from [place] age 63Mother Hypertension CancerSister Cancer Myocardial infarction, Onset Age: 45Brother Cancer lung Social History Smoking Status: Never smoker alcohol intake: current alcohol intake frequency: holidays/special occasions only Alcohol type: wine substance use type: does not use caffeine: No what type of physical activity do you participate in: none seatbelt use: always do you feel safe at home: Yes HPI HPI HPI: Patient is a 73-year-old female here for follow-up after colonoscopy last year. She had colonoscopy in September 2022 and she had a large cecal polyp that had to be removed in piecemeal fashion. She was recommended for repeat in 1 year which will be this coming September. She is here to schedule that. She denies any issues at this time. She denies any abdominal pain or blood in the stool. ROS General General: Yes weight change; No appetite, fatigue, colon cancer, breast cancer or weakness HEENT HEENT: No difficulty swallowing, eye injury, eye surgery, swollen glands or hoarseness Endo Endocrine: Yes thyroid disease; No diabetes mellitus, thyroid cancer, Hair loss, heat intolerance or cold intolerance Skin Skin: No rash or changing moles Musc Musculoskeletal: Yes arthritis and rheumatoid arthritis; No back problems, gout or joint pain Cardio Cardiovascular: Yes pacemaker, heart disease and atrial fibrillation; No murmur, high blood pressure, heart attack, heart stent, palpitations, shortness of breat with exertion or chest pain Psych Psychiatric: No depression, anxiety or hearing voices Resp Respiratory: No shortness of breath, Yes sleep apnea, No cough, No COPD, No asthma, No emphysema and No wheezing Gastro Gastrointestinal: No abdominal pain, No nausea or vomiting, No diarrhea, No constipation, No blood in stool, No acid reflux, No hemorrhoids, No ulcers, No gallbladder problem and No black,tarry stools Nguyễn Hematologic: Yes blood thinners, No blood disorders, No bleeding, No anemia and No blood clots Neuro Neurologic: No system reviewed and no additional complaints, except as documented, No as per HPI, No abnormal gait, No abnormal hearing, No abnormal movements, No abnormal speech, No behavioral changes, No burning sensations, No confusion, No convulsions, No disequilibrium, No dizziness, No localized weakness, No frequent falls, No headache(s), No lack of coordination, No loss of vision, No memory loss, No numbness, No other visual disturbances, No radicular pain, No restless legs, No sensory deficit, No syncope, No tingling, No tremor(s), No weakness and No other Exam Const General: cooperative Orientation: alert and oriented x3 HENMT Head: normal to inspection Neck Neck: normal visual inspection and full ROM Chest Chest palpation & inspection: normal inspection of the chest Resp Effort & Inspection: normal respiratory effort Auscultation: clear to auscultation bilaterally Cardio Rate: regular rate Rhythm: regular rhythm GI Inspection: non-distended Palpation: soft and nontender Skin General: no rashes or lesions noted Neuro General: patient alert and patient oriented x3 Extrem General: full ROM Psych Appearance: grossly normal Mental Status: mental status grossly normal Assessment and Plan Assessment and Plan (1) Encounter for colonoscopy due to history of colonic polyp: Status: Acute Plan: Patient had piecemeal polypectomy 1 year ago and is here for her 1 year follow-up colonoscopy. I explained endoscopy in detail to the patient. I explained the risks including but not limited to stroke or heart attack with anesthesia, perforation of the GI tract, bleeding, infection. I explained that any of these could necessitate further emergency surgery. The patient understands and all questions were answered sufficiently. The patient wishes to proceed with procedure. Patient will hold her Coumadin for 1 week. Jovan Webb MD Pager: [facility] [address] [place] [address], [address] [place] [address] Office: I have examined the patient and the H&P has been reviewed. There are no clinical changes since date of exam.
[2023-12-30 07:59] LABS: INR Fingerstick 1.3; Prothrombin Time Fingerstick 14.3 SEC (11.7-14.9)
[2023-12-30 08:26] VITALS: BP 110/41; BP 134/71; PULSE 60; RESP 16; TEMP 36.6; O2SAT 95
--- NOTE | 2023-12-30 08:28 | OP.CCLET_ITS ---
12/30/2023 Bird Garza MD [address] [place] [address] Re : Colonoscopy procedure for Anh Brito Dear Dr. Garza This procedure was performed on Saturday, December 30, 2023. My impressions and recommendations are as follows: Impressions : - No specimens collected. Recommendations : - Discharge patient to home. - Resume previous diet. - Continue present medications. - Resume Coumadin (warfarin) at prior dose today. - Refer to a construction contractor at appointment to be scheduled. - Repeat colonoscopy at appointment to be scheduled because the examination was incomplete. My findings are described in the full procedure note, which is enclosed. If I can be of further assistance, please feel free to contact me at Doctor phone number(s): , Work: . Sincerely, Jovan Webb MD 12/30/2023 8:27:46 AM This report has been signed electronically.
--- NOTE | 2023-12-30 08:28 | OP.COLON_ITS ---
Patient Name: Anh Brito Procedure Date: 12/30/2023 7:57 AM Date of : 1950 Age: 73 Procedure: Colonoscopy Indications: High risk colon cancer surveillance: Personal history of colonic polyps Providers: Jovan Webb MD Referring MD: Bird Garza MD Medicines: Propofol per Anesthesia Patient Profile: Last Colonoscopy: 1 year ago. Complications: No immediate complications. Estimated blood loss: Minimal. Procedure: Pre-Anesthesia Assessment: - Prior to the procedure, a History and Physical was performed, and patient medications and allergies were reviewed. The patient's tolerance of previous anesthesia was also reviewed. The risks and benefits of the procedure and the sedation options and risks were discussed with the patient. All questions were answered, and informed consent was obtained. Prior Anticoagulants: The patient has taken Coumadin (warfarin), last dose was 5 days prior to procedure. After reviewing the risks and benefits, the patient was deemed in satisfactory condition to undergo the procedure. After I obtained informed consent, the scope was passed under direct vision. Throughout the procedure, the patient's blood pressure, pulse, and oxygen saturations were monitored continuously. The pediatric colonoscope was introduced through the anus and advanced to the sigmoid colon. The colonoscopy was extremely difficult due to restricted mobility of the colon. The quality of the bowel preparation was good. No anatomical landmarks were photographed. Scope In: 8:06:56 AM Scope Out: 8:19:54 AM Total Procedure Duration Time 0 hours 12 minutes 58 seconds Findings: Impression: - No specimens collected. Recommendation: - Discharge patient to home. - Resume previous diet. - Continue present medications. - Resume Coumadin (warfarin) at prior dose today. - Refer to a java web services developer at appointment to be scheduled. - Repeat colonoscopy at appointment to be scheduled because the examination was incomplete. Procedure Code(s): --- Professional --- 52361, 53, Colonoscopy, flexible; diagnostic, including collection of specimen(s) by brushing or washing, when performed (separate procedure) Diagnosis Code(s): --- Professional --- Z86.010, Personal history of colonic polyps CPT copyright 2021 [employer]. All rights reserved. The codes documented in this report are preliminary and upon pre coder review may be revised to meet current compliance requirements. Jovan Webb MD 12/30/2023 8:27:46 AM This report has been signed electronically. Number of Addenda: 0 Note Initiated On: 12/30/2023 7:57 AM
[2023-12-30 08:30] VITALS: BP 134/71; BP 98/43; PULSE 60; RESP 16; O2SAT 97
[2023-12-30 08:34] VITALS: BP 106/33; BP 134/71; PULSE 60; RESP 16; TEMP 36.6; O2SAT 96
[2023-12-30 08:37] VITALS: BP 110/43; PULSE 60
[2023-12-30 08:43] VITALS: BP 134/71
== END 2023-12-30 09:08 | disposition home or self-care (01) ==
LOC: EN 06:54 → AC 06:56
PROVIDERS: PCP Family Medicine; Referring Provider Family Medicine; Visit Provider Surgery
PROC: 0DJD8ZZ Inspection of Lower Intestinal Tract, Via Natural or Artificial Opening Endoscopic (ICD-10-PCS; CPT 45378; principal; 2023-12-30 08:10)
DX: Z12.11 Encounter for screening for malignant neoplasm of colon (principal); M06.9 Rheumatoid arthritis, unspecified; E11.9 Type 2 diabetes mellitus without complications; E66.9 Obesity, unspecified; I10 Essential (primary) hypertension; Z68.38 Body mass index [BMI] 38.0-38.9, adult; G47.33 Obstructive sleep apnea (adult) (pediatric); E03.9 Hypothyroidism, unspecified; F41.9 Anxiety disorder, unspecified; F32.A Depression, unspecified; Z79.899 Other long term (current) drug therapy; Z79.01 Long term (current)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; Z95.0 Presence of cardiac pacemaker; Z86.010 Personal history of colon polyps
CPT/HCPCS: G0105; 36416; 85610; J7120; J2405

== ENCOUNTER → 2024-04-26 | Outpatient (CLI) | payer MEDICARE, SELFPAY ==
--- NOTE | 2024-04-26 14:00 | LES_PTH ---
PATIENT: GRACIELA KIRK LOC: [facility] U#:[id number] AGE/SX: 74/F ROOM: RE04/26/[address]: Dr. Bird Garza MD : 1950 BED: DIS: 04/26/2024 SPEC #: [id number] RECD: 04/26/24 17:38 STATUS: DIANN CHARLES #: [id number] JAYSON: 04/26/24 14:[address]: Bird Garza DEPT: SURGICAL PATHOLOGY RECD BY: Vita Francisco Tissues: Skin of arm Procedures: Surgery Specimen Level IV HEADER OPERATION: Elliptical excision biopsy PRE-OP DIAGNOSIS: Right arm TISSUE SUBMITTED: Right arm biopsy MICROSCOPIC DIAGNOSIS Lesion of right arm, excisional biopsy: Basal cell carcinoma, superficial, multifocal, narrowly excised. Solar elastosis. See comment. Jose Manuel 04/30/2024 COMMENT The lesion focally extends to less than 1.0mm of the deep margin excision. Clinical correlation is suggested. MICROSCOPIC DESCRIPTION Slides are reviewed. GROSS DESCRIPTION Received is one container labeled with the patient's name and not further designated. The specimen consists of a shave biopsy of osorio-white skin measuring 1.5 x 1.0 x 0.1cm. Also present in the container is a detached piece of osorio-white skin measuring 0.6 x 0.1 x 0.1cm. The larger piece is serially sectioned. The specimen is inked, serially sectioned and submitted entirely in one cassette. HOLLIS/ 04/27/2024 TC:0 CPT:96082
== END | disposition home or self-care (01) ==
PROVIDERS: PCP Family Medicine; Referring Provider Family Medicine; Visit Provider Family Medicine
DX: C44.612 Basal cell carcinoma of skin of right upper limb, including shoulder (principal)
CPT/HCPCS: 88305

== ENCOUNTER 2024-07-18 17:16 | Inpatient (IN) | payer MEDICARE, SELFPAY ==
[2024-07-18] VITALS (7 sets, daily range): BP systolic 110–144; BP diastolic 68–83; PULSE 78–155; RESP 18–31; TEMP 35.8–36.4; O2SAT 93–98; BMI 39.9; BMI 38.2
[2024-07-18 18:02] LABS: Absolute Lymphocyte Count 1.15 X10^3/uL (0.83-4.51); Absolute Neutrophil Count 7.9 X10^3/uL (2.0-7.7); Eosinophils% 1.9 % (0-5); Hematocrit 36.1 % (37-47); Hemoglobin 11.6 g/dL (12.0-15.0); Lymphocyte # 1.15 X10^3/ul (0.83-4.51); Lymphocyte % 11.2 % (19-41); Mean Corp Hgb Conc 32.1 g/dL (32-36); Mean Corpuscular Hgb 30.1 pg (27.0-32.0); Mean Corpuscular Volume 93.5 fL (81-99); Mean Platelet Vol. 9.8 fl (6.2-12.0); Monocyte# 0.88 X10^3/uL; Monocyte% 8.6 % (0-10); NRBC Flagged by Analyzer 0 % (0-5); Neutrophil # 7.89 X10^3/uL (2.7-7.7); Neutrophil % 76.6 % (47-70); Platelet Count 275 K/mm3 (150-450); RBC Distribution Width CV 15.6 % (11.6-14.6); RBC Distribution Width SD 51.7 fl (35.1-43.9); Red Blood Count 3.86 M/mm3 (4.2-5.4); White Blood Count 10.3 K/mm3 (4.4-11.0)
[2024-07-18 18:17] LABS: International Normalized Ratio 2.5; Prothrombin Time (Protime)PT. 27.1 SECONDS (11.7-14.9)
[2024-07-18 18:24] LABS: BNP,B-Type NATRIURETIC PEPTIDE 405.2 pg/mL (0-100)
[2024-07-18 18:25] LABS: Anion Gap 7 (5-15); BUN 23 mg/dL (7-18); BUN/Creat Ratio 27.9 RATIO (10-20); Calcium,Total 9.2 mg/dL (8.5-10.1); Chloride 104 mmol/L (98-107); Creatinine, Serum 0.82 mg/dL (0.55-1.02); EST Glomerular Filtration Rate 72 mL/min (>60); Est Glom Filt Rate - Afr Amer 87 mL/min (>60); Estimated Creatinine Clearance 58.67 ml/min; Glucose 115 mg/dL (74-106); Magnesium 2.5 mg/dL (1.6-2.6); Potassium 3.4 mmol/L (3.5-5.1); Sodium Level 141 mmol/L (136-145); Troponin-I HS (w/2H Reflex) 61 pg/mL (3.0-54.0)
[2024-07-18] MEDS: Metoprolol Tartrate 5 MG/5 ML Vial IV (19:41)
[2024-07-18] MEDS: Furosemide 40 MG/4 ML Vial IV (19:41)
[2024-07-18] MEDS: Acetaminophen 325 MG Tablet 650 MG PO (19:42)
[2024-07-18 19:57] LABS: Reflex Troponin-HS? (from REC) Y
[2024-07-18 20:41] LABS: Magnesium 2.4 mg/dL (1.6-2.6); Troponin-I HS 69 pg/mL (3.0-54.0)
[2024-07-18 21:18] LABS: Phosphorus 3.8 mg/dL (2.5-4.9)
[2024-07-19] VITALS (9 sets, daily range): BP systolic 113–126; BP diastolic 53–96; PULSE 72–110; RESP 14–20; TEMP 35.8–36.5; O2SAT 96–99; BMI 38.7
[2024-07-19] MEDS: Senna/Docusate Sodium 1 Tablet 2 TABLET PO ×2 (00:12→09:16)
[2024-07-19] MEDS: Atorvastatin Calcium 40 MG Tablet PO ×2 (00:13→21:01)
[2024-07-19] MEDS: Carvedilol 6.25 MG Tablet PO (00:13)
[2024-07-19] MEDS: Spironolactone 25 MG Tablet PO ×2 (00:13→10:41)
[2024-07-19 02:25] LABS: Troponin-I HS 70 pg/mL (3.0-54.0)
[2024-07-19 06:24] LABS: Absolute Lymphocyte Count 1.05 X10^3/uL (0.83-4.51); Absolute Neutrophil Count 6.1 X10^3/uL (2.0-7.7); Basophil# 0.06 X10^3/uL; Basophil% 0.8 % (0-1); Eosinophil# 0.08 X10^3/uL; Hematocrit 30.6 % (37-47); Hemoglobin 9.9 g/dL (12.0-15.0); Lymphocyte # 1.05 X10^3/ul (0.83-4.51); Lymphocyte % 13.3 % (19-41); Mean Corp Hgb Conc 32.4 g/dL (32-36); Mean Corpuscular Hgb 30.1 pg (27.0-32.0); Mean Platelet Vol. 9.9 fl (6.2-12.0); Monocyte% 7.6 % (0-10); NRBC Flagged by Analyzer 0 % (0-5); Neutrophil # 6.09 X10^3/uL (2.7-7.7); Neutrophil % 76.9 % (47-70); Platelet Count 211 K/mm3 (150-450); RBC Distribution Width CV 15.4 % (11.6-14.6); RBC Distribution Width SD 51.4 fl (35.1-43.9); Red Blood Count 3.29 M/mm3 (4.2-5.4); White Blood Count 7.9 K/mm3 (4.4-11.0)
[2024-07-19 06:58] LABS: Anion Gap 7 (5-15); BUN 22 mg/dL (7-18); Calcium,Total 8.3 mg/dL (8.5-10.1); Chloride 107 mmol/L (98-107); Cholesterol 106 mg/dL (200); Creatinine, Serum 0.65 mg/dL (0.55-1.02); EST Glomerular Filtration Rate 95 mL/min (>60); Est Glom Filt Rate - Afr Amer 115 mL/min (>60); Estimated Creatinine Clearance 58.74 ml/min; Glucose 98 mg/dL (74-106); High Density Lipoprotein 38 mg/dL; Potassium 3.6 mmol/L (3.5-5.1); Sodium Level 144 mmol/L (136-145); Triglycerides 63 mg/dL; Very Low Density Lipoprotein 13 mg/dL (5-40)
[2024-07-19 06:59] LABS: International Normalized Ratio 2.3; Prothrombin Time (Protime)PT. 25.4 SECONDS (11.7-14.9)
[2024-07-19] MEDS: Levothyroxine 50 MCG Tablet PO (07:17)
[2024-07-19] MEDS: Acetaminophen 325 MG Tablet 650 MG PO (08:43)
[2024-07-19] MEDS: Metoprolol Tartrate 50 MG Tablet PO ×2 (09:12→21:02)
[2024-07-19] MEDS: Magnesium Chloride 64 MG Delay Rel.Tablet 128 MG PO ×2 (09:14→21:02)
[2024-07-19] MEDS: Pantoprazole Sodium 40 MG Tablet PO (09:15)
[2024-07-19] MEDS: Hydroxychloroquine 200 MG Tablet PO ×2 (09:16→21:01)
[2024-07-19] MEDS: Calcitriol 0.25 MCG Capsule PO (09:17)
[2024-07-19] MEDS: Cholecalciferol (VIT D3) 25 MCG TABLET (1,000 UNITS) PO (09:18)
[2024-07-19] MEDS: Sertraline 100 MG Tablet PO (09:19)
[2024-07-19] MEDS: Furosemide 40 MG/4 ML Vial IV ×2 (09:20→17:45)
[2024-07-19] MEDS: 0.9% Saline Lock 10 ML Syringe IV ×3 (09:20→17:46)
[2024-07-19] MEDS: proCHLORPERazine 10 MG/2 ML Vial 5 MG IV (13:25)
[2024-07-19] MEDS: clonazePAM 1 MG Tablet PO (21:01)
[2024-07-19] MEDS: Ensure Plus High Protein 120 ML LIQUID PO (21:02)
[2024-07-20] VITALS (8 sets, daily range): BP systolic 115–134; BP diastolic 66–103; PULSE 69–102; RESP 16–18; TEMP 36.1–36.6; O2SAT 98–100; BMI 38.6
[2024-07-20] MEDS: Levothyroxine 50 MCG Tablet PO (05:09)
[2024-07-20 06:30] LABS: Absolute Lymphocyte Count 1.36 X10^3/uL (0.83-4.51); Absolute Neutrophil Count 8.3 X10^3/uL (2.0-7.7); Basophil# 0.09 X10^3/uL; Basophil% 0.8 % (0-1); Eosinophil# 0.16 X10^3/uL; Eosinophils% 1.5 % (0-5); Hematocrit 35.1 % (37-47); Hemoglobin 11.1 g/dL (12.0-15.0); Lymphocyte # 1.36 X10^3/ul (0.83-4.51); Lymphocyte % 12.8 % (19-41); Mean Corp Hgb Conc 31.6 g/dL (32-36); Mean Corpuscular Hgb 29.9 pg (27.0-32.0); Mean Corpuscular Volume 94.6 fL (81-99); Mean Platelet Vol. 10.3 fl (6.2-12.0); Monocyte% 6.6 % (0-10); NRBC Flagged by Analyzer 0 % (0-5); Neutrophil % 77.8 % (47-70); Platelet Count 227 K/mm3 (150-450); RBC Distribution Width CV 15.4 % (11.6-14.6); RBC Distribution Width SD 52.7 fl (35.1-43.9); Red Blood Count 3.71 M/mm3 (4.2-5.4); White Blood Count 10.7 K/mm3 (4.4-11.0)
[2024-07-20 06:43] LABS: Anion Gap 5 (5-15); BUN 20 mg/dL (7-18); BUN/Creat Ratio 24.3 RATIO (10-20); Chloride 105 mmol/L (98-107); Creatinine, Serum 0.82 mg/dL (0.55-1.02); EST Glomerular Filtration Rate 72 mL/min (>60); Est Glom Filt Rate - Afr Amer 87 mL/min (>60); Estimated Creatinine Clearance 57.82 ml/min; Glucose 121 mg/dL (74-106); Potassium 3.2 mmol/L (3.5-5.1); Sodium Level 141 mmol/L (136-145)
[2024-07-20 07:14] LABS: International Normalized Ratio 2.3; Prothrombin Time (Protime)PT. 25.2 SECONDS (11.7-14.9)
[2024-07-20] MEDS: Potassium Chloride Oral Tablet 20 MEQ 40 MEQ PO (10:18)
[2024-07-20] MEDS: 0.9% Saline Lock 10 ML Syringe IV (10:18)
[2024-07-20] MEDS: Ensure Plus High Protein 120 ML LIQUID PO ×2 (10:19→21:02)
[2024-07-20] MEDS: Furosemide 40 MG/4 ML Vial IV (10:20)
[2024-07-20] MEDS: Magnesium Chloride 64 MG Delay Rel.Tablet 128 MG PO ×2 (10:21→20:57)
[2024-07-20] MEDS: Pantoprazole Sodium 40 MG Tablet PO (10:21)
[2024-07-20] MEDS: Spironolactone 25 MG Tablet PO (10:21)
[2024-07-20] MEDS: Metoprolol Tartrate 50 MG Tablet PO ×2 (10:22→20:57)
[2024-07-20] MEDS: Hydroxychloroquine 200 MG Tablet PO ×2 (10:23→20:56)
[2024-07-20] MEDS: Cholecalciferol (VIT D3) 25 MCG TABLET (1,000 UNITS) PO (10:23)
[2024-07-20] MEDS: Sertraline 100 MG Tablet PO (10:24)
[2024-07-20] MEDS: proCHLORPERazine 10 MG/2 ML Vial 5 MG IV (15:59)
[2024-07-20] MEDS: Furosemide 40 MG Tablet PO (17:38)
[2024-07-20] MEDS: Acetaminophen 325 MG Tablet 650 MG PO (17:41)
[2024-07-20] MEDS: Senna/Docusate Sodium 1 Tablet 2 TABLET PO (20:57)
[2024-07-20] MEDS: Atorvastatin Calcium 40 MG Tablet PO (20:58)
[2024-07-20] MEDS: clonazePAM 1 MG Tablet PO (21:02)
[2024-07-21 03:00] VITALS: BP 124/71; PULSE 78; RESP 18; TEMP 36.4; O2SAT 100
[2024-07-21 05:30] VITALS: BMI 38.5
[2024-07-21] MEDS: Levothyroxine 50 MCG Tablet PO (05:46)
[2024-07-21 06:47] LABS: Absolute Lymphocyte Count 2.23 X10^3/uL (0.83-4.51); Absolute Neutrophil Count 6.7 X10^3/uL (2.0-7.7); Basophil# 0.08 X10^3/uL; Basophil% 0.8 % (0-1); Eosinophil# 0.21 X10^3/uL; Eosinophils% 2.1 % (0-5); Hematocrit 38.3 % (37-47); Lymphocyte # 2.23 X10^3/ul (0.83-4.51); Mean Corp Hgb Conc 31.3 g/dL (32-36); Mean Corpuscular Hgb 30.1 pg (27.0-32.0); Mean Platelet Vol. 9.7 fl (6.2-12.0); Monocyte# 0.83 X10^3/uL; Monocyte% 8.2 % (0-10); NRBC Flagged by Analyzer 0 % (0-5); Neutrophil # 6.74 X10^3/uL (2.7-7.7); Neutrophil % 66.4 % (47-70); Platelet Count 244 K/mm3 (150-450); RBC Distribution Width CV 15.9 % (11.6-14.6); RBC Distribution Width SD 54.3 fl (35.1-43.9); Red Blood Count 3.99 M/mm3 (4.2-5.4); White Blood Count 10.1 K/mm3 (4.4-11.0)
[2024-07-21 06:59] LABS: International Normalized Ratio 2.8; Prothrombin Time (Protime)PT. 29.6 SECONDS (11.7-14.9)
[2024-07-21 07:20] LABS: Anion Gap 5 (5-15); BUN 20 mg/dL (7-18); BUN/Creat Ratio 21.9 RATIO (10-20); Calcium,Total 9.1 mg/dL (8.5-10.1); Chloride 106 mmol/L (98-107); Creatinine, Serum 0.92 mg/dL (0.55-1.02); EST Glomerular Filtration Rate 64 mL/min (>60); Est Glom Filt Rate - Afr Amer 77 mL/min (>60); Estimated Creatinine Clearance 51.36 ml/min; Glucose 100 mg/dL (74-106); Potassium 3.8 mmol/L (3.5-5.1); Sodium Level 140 mmol/L (136-145)
[2024-07-21 08:32] VITALS: O2SAT 94
[2024-07-21 09:00] VITALS: BP 100/83; PULSE 97; RESP 18; TEMP 36.4; O2SAT 100
[2024-07-21] MEDS: Ensure Plus High Protein 120 ML LIQUID PO (09:03)
[2024-07-21 09:06] VITALS: PULSE 97
[2024-07-21] MEDS: Magnesium Chloride 64 MG Delay Rel.Tablet 128 MG PO (09:06)
[2024-07-21] MEDS: Pantoprazole Sodium 40 MG Tablet PO (09:06)
[2024-07-21] MEDS: Lisinopril 10 MG Tablet PO (09:06)
[2024-07-21] MEDS: Spironolactone 25 MG Tablet PO (09:06)
[2024-07-21] MEDS: Calcitriol 0.25 MCG Capsule PO (09:06)
[2024-07-21] MEDS: Hydroxychloroquine 200 MG Tablet PO (09:06)
[2024-07-21] MEDS: Metoprolol Tartrate 50 MG Tablet PO (09:06)
[2024-07-21] MEDS: Sertraline 100 MG Tablet PO (09:06)
[2024-07-21] MEDS: Furosemide 40 MG Tablet PO (09:06)
[2024-07-21] MEDS: Cholecalciferol (VIT D3) 25 MCG TABLET (1,000 UNITS) PO (09:06)
[2024-07-21 09:19] VITALS: O2SAT 91; O2SAT 97
== END 2024-07-21 13:26 | disposition home or self-care (01) | DRG 291 ==
LOC: ED 20:03 → PCU 20:06
PROVIDERS: Admitting Provider Internal Medicine; Emergency Provider Emergency Medicine; PCP Family Medicine; Referring Provider Emergency Medicine; Visit Provider Student in an Organized Health Care Education/Training Program
DX: I11.0 Hypertensive heart disease with heart failure (principal); I50.23 Acute on chronic systolic (congestive) heart failure; I50.33 Acute on chronic diastolic (congestive) heart failure; Z68.41 Body mass index [BMI] 40.0-44.9, adult; I49.5 Sick sinus syndrome; Z66 Do not resuscitate; Z95.2 Presence of prosthetic heart valve; Z79.01 Long term (current)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; E11.9 Type 2 diabetes mellitus without complications; M06.9 Rheumatoid arthritis, unspecified; E03.9 Hypothyroidism, unspecified; F32.A Depression, unspecified; E66.01 Morbid (severe) obesity due to excess calories; I08.3 Combined rheumatic disorders of mitral, aortic and tricuspid valves; I48.0 Paroxysmal atrial fibrillation; G47.33 Obstructive sleep apnea (adult) (pediatric); Z79.4 Long term (current) use of insulin; E78.5 Hyperlipidemia, unspecified; I44.7 Left bundle-branch block, unspecified; I34.81 Nonrheumatic mitral (valve) annulus calcification; F41.9 Anxiety disorder, unspecified; Z95.0 Presence of cardiac pacemaker; Z79.2 Long term (current) use of antibiotics; Z90.710 Acquired absence of both cervix and uterus
CPT/HCPCS: 36415; 71045; 80048; 80061; 83735; 83880; 84100; 84443; 84484; 85025; 85610; 93005; 93288; 94002; 94003; 94668; 97162; 97166; 97802; 99285; A4216; J1940

== ENCOUNTER → 2024-11-01 | Outpatient (CLI) | payer MEDICARE, SELFPAY ==
[2024-11-01 17:34] LABS: Absolute Lymphocyte Count 1.51 X10^3/uL (0.83-4.51); Absolute Neutrophil Count 4.5 X10^3/uL (2.0-7.7); Basophil# 0.05 X10^3/uL; Basophil% 0.7 % (0-1); Eosinophil# 0.08 X10^3/uL; Eosinophils% 1.2 % (0-5); Hematocrit 43.9 % (37-47); Hemoglobin 14.6 g/dL (12.0-15.0); Lymphocyte # 1.51 X10^3/ul (0.83-4.51); Lymphocyte % 22.3 % (19-41); Mean Corp Hgb Conc 33.3 g/dL (32-36); Mean Corpuscular Hgb 31.1 pg (27.0-32.0); Mean Corpuscular Volume 93.6 fL (81-99); Mean Platelet Vol. 11.5 fl (6.2-12.0); Monocyte# 0.65 X10^3/uL; Monocyte% 9.6 % (0-10); NRBC Flagged by Analyzer 0 % (0-5); Neutrophil # 4.47 X10^3/uL (2.7-7.7); Neutrophil % 65.9 % (47-70); Platelet Count 153 K/mm3 (150-450); RBC Distribution Width CV 16.4 % (11.6-14.6); RBC Distribution Width SD 55.8 fl (35.1-43.9); Red Blood Count 4.69 M/mm3 (4.2-5.4); White Blood Count 6.8 K/mm3 (4.4-11.0)
[2024-11-01 18:07] LABS: ALB/GLOB Ratio 1.1 RATIO (0.9-2.4); AST(SGOT) 28 U/L (15-37); Alanine Aminotransfer ALT/SGPT 24 U/L (13-56); Albumin, Serum 3.8 g/dL (3.2-5.0); Alkaline Phosphatase 84 U/L (45-117); Anion Gap 7 (5-15); BUN 22 mg/dL (7-18); BUN/Creat Ratio 17.5 RATIO (10-20); Calcium,Total 9.4 mg/dL (8.5-10.1); Chloride 104 mmol/L (98-107); Cholesterol 152 mg/dL (200); Creatinine, Serum 1.26 mg/dL (0.55-1.02); EST Glomerular Filtration Rate 44 mL/min (>60); Est Glom Filt Rate - Afr Amer 53 mL/min (>60); Free T3 1.5 pg/mL (2.18-3.98); Globulin 3.5 g/dL (2.2-4.2); Glucose 109 mg/dL (74-106); High Density Lipoprotein 67 mg/dL; Protein, Total 7.3 g/dL (6.4-8.2); Sodium Level 138 mmol/L (136-145); Triglycerides 117 mg/dL; Very Low Density Lipoprotein 23 mg/dL (5-40)
== END | disposition home or self-care (01) ==
PROVIDERS: PCP Family Medicine; Referring Provider Family Medicine; Visit Provider Family Medicine
DX: E03.9 Hypothyroidism, unspecified (principal); I48.91 Unspecified atrial fibrillation; R53.83 Other fatigue
CPT/HCPCS: 36415; 80053; 80061; 84439; 84443; 84481; 85025

== ENCOUNTER → 2024-12-10 | Outpatient (CLI) | payer MEDICARE, SELFPAY ==
[2024-12-10 21:45] LABS: Free T3 1.9 pg/mL (2.18-3.98)
== END | disposition home or self-care (01) ==
LOC: MTLAB 15:39
PROVIDERS: PCP Family Medicine; Referring Provider Family Medicine; Visit Provider Family Medicine
DX: E03.9 Hypothyroidism, unspecified (principal)
CPT/HCPCS: 36415; 84439; 84443; 84481

== ENCOUNTER → 2025-03-20 | Outpatient (CLI) | payer MEDICARE, SELFPAY ==
[2025-03-20 17:44] LABS: Hematocrit 40.7 % (37-47); Hemoglobin 13.1 g/dL (12.0-15.0); Immature Granulocytes Count 0.030 X10^3/uL (0.0-0.0); Mean Corp Hgb Conc 32.2 g/dL (32-36); Mean Corpuscular Volume 96.7 fL (81-99); Mean Platelet Vol. 10.4 fl (6.2-12.0); NRBC Flagged by Analyzer 0 % (0-5); Platelet Count 192 K/mm3 (150-450); RBC Distribution Width CV 13.7 % (11.6-14.6); RBC Distribution Width SD 48.8 fl (35.1-43.9); Red Blood Count 4.21 M/mm3 (4.2-5.4); White Blood Count 6.7 K/mm3 (4.4-11.0)
[2025-03-20 18:47] LABS: AST(SGOT) 32 U/L (<=31); Alanine Aminotransfer ALT/SGPT 17 U/L (<=34); Albumin, Serum 3.8 g/dL (3.4-4.8); Alkaline Phosphatase 104 U/L (35-104); Anion Gap 10 (5-15); BUN 13 mg/dL (4-19); BUN/Creat Ratio 12.5 RATIO (10-20); Calcium,Total 9.4 mg/dL (7.6-11.0); Carbon Dioxide 32.1 mmol/L (21.0-32.0); Chloride 101 mmol/L (98-108); Cholesterol 253 mg/dL (<=200); Globulin 3.5 g/dL (2.2-4.2); Glucose 90 mg/dL (70-99); Low Density Lipoprotein Calc. 172 mg/dL; Potassium 3.9 mmol/L (3.3-5.1); Triglycerides 159 mg/dL; Very Low Density Lipoprotein 32 mg/dL (5-40); cholesterol:hdl ratio screen 5.11
[2025-03-20 19:29] LABS: Free T3 2.1 pg/mL (2.18-3.98)
== END | disposition home or self-care (01) ==
LOC: MTLAB 15:38
PROVIDERS: PCP Family Medicine; Referring Provider Family Medicine; Visit Provider Family Medicine
DX: E03.9 Hypothyroidism, unspecified (principal); M06.9 Rheumatoid arthritis, unspecified; I10 Essential (primary) hypertension
CPT/HCPCS: 36415; 80053; 80061; 84439; 84443; 84481; 85025